=== PATIENT | male | born 1965 | race Caucasian/White ===

== ENCOUNTER 2020-09-20 21:18 | Emergency (ER) | payer MEDICAID, SELFPAY ==
--- NOTE | 2020-09-20 21:28 | ED_ITS ---
HPI - Psych General Chief Complaint: Psychiatric Symptoms Stated Complaint: FOUND SLEEPING IN [place]AC[place] Time Seen by Provider: 09/20/20 21:32 Source: EMS Mode of arrival: EMS Limitations: no limitations History of Present Illness HPI Narrative: 55-year-old male presents via EMS, found in a vacant building by the police department and was brought in to the emergency department for evaluation. Patient is angry, disheveled, close slowed with his own urine, swearing at everybody, states that he had a seizure because he did not take his medications. He does have a history of barbiturate alcohol abuse, does not report using alcohol today. He does smell like alcohol, urine and tobacco. MD complaint: feels depressed and alcohol abuse Onset (ago): unknown Duration: constant History of same: No Context: recent alcohol abuse Associated psychiatric symptoms: depression Associated symptoms: denies other symptoms Treatments prior to arrival: none Related Data Allergies Allergy/AdvReac Type Severity Reaction Status Date / Time aspirin [ASPIRIN] Allergy Unknown STOMACH Unverified 06/15/20 16:55 UPSET ibuprofen [IBUPROFEN] Allergy Unknown STOMACH Unverified 06/15/20 16:55 UPSET Review of Systems Review of Systems: Constitutional: No Fever, No Chills ENT/Mouth: No sore throat, No Rhinorrhea Eyes: No Eye Pain, No Swelling, No Redness Cardiovascular: No Chest Pain, No SOB Respiratory: No Cough, No Sputum Gastrointestinal: No Nausea, No Vomiting, No Diarrhea, No abdominal Pain Genitourinary: No Dysuria, No Hematuria Musculoskeletal: No joint pain, No Myalgias, No Joint Swelling Skin: No Skin Lesions, No rash Neuro: No Weakness, No Numbness, No Loss of Consciousness, No Dizziness, No Headache Psych: No Anxiety, No Depression, No SI/HI/AH/VH Heme/Lymph: No Bruising, No Bleeding,No Lymphadenopathy Endocrine: No Polyuria, No Polydipsia Yes all other systems are reviewed and are negative [facility] Past Medical History Attestation statement: The following information was validated with the patient. Social History Social History Advance Directives: No Advance Directives Information Provided: Yes Physical Exam Vital Signs: Vital Signs: Last Vital Signs Temp 97.1 F 09/20/20 21:49 Pulse 72 09/20/20 21:49 Resp 18 09/20/20 21:49 BP 137/57 L 09/20/20 21:49 Pulse Ox 98 09/20/20 21:49 Body Mass Index 23.7 Appearance: Alert. Oriented X3. Disheveled, urine soiled clothing Eyes: Pupils equal, round and reactive to light. ENT: Pharynx normal. Neck: Normal inspection. Neck supple. CVS: Normal heart rate and rhythm. Pulses normal. Respiratory: No respiratory distress. Breath sounds normal. Abdomen: Soft and nontender. Skin: Skin warm and dry. Normal skin color. Normal skin turgor. Extremities: No lower extremity edema. Neuro: No motor deficit. No sensory deficit. Course Course Course Narrative: 55-year-old male presents via EMS after being found sleeping in a vacant building. Patient is homeless, has a seizure disorder and is not taking his medications properly. Patient's clothes were taken to be cleaned as they were wet and urine soaked. He was moved to the Psychiatric pod where he admitted that he is suicidal. He does not have a plan, N consult is pending. MDM - Psych Differential Diagnosis Differential diagnosis: Likely suicidal ideation, depression, alcohol intoxication and mood disorder Restraints Face to Face Assessment: Face to Face Assessment: Current Situation: After assessment of the patient, a review of the pertinent medical record and a discussion with nursing staff, I feel the patient requires a restrain inte rvention. Reaction To: [] Medical Condition: [] Behavioral State: [] Continued Need: [] Discharge Plan Discharge Clinical Impression: Depression Qualifiers: Depression Type: major depressive disorder Major depression recurrence: recurrent Active/Remission status: currently active Major depression episode severity: moderate Qualified Code(s): F33.1 - Major depressive disorder, recurrent, moderate
[2020-09-20 21:49] VITALS: BP 137/57; PULSE 72; RESP 18; TEMP 36.2; O2SAT 98; BMI 23.7
[2020-09-20] MEDS: levETIRAcetam 1,000 MG TABLET 1000 MG PO (22:32)
--- NOTE | 2020-09-20 22:43 | PC.NURSE ---
Patient took HS PO medication, spat out partially swallowed medication, provider notified/advised to use pudding next time, patient refused POC, will try later, patient trying to isolate herself in the room.
[2020-09-21 01:08] VITALS: BP 115/71; PULSE 100; RESP 17; TEMP 37.4; O2SAT 92
[2020-09-21 03:51] LABS: Basophils Percent Auto 0.9 % (0-2); Eosinophils Absolute Auto 0.1 X10*3/uL (0.0-0.4); Eosinophils Percent Auto 2.7 % (0-4); Hemoglobin 10.5 g/dl (14.0-18.0); Imm Gran Abs Auto 0.02 X10*3/uL (0.00-0.03); Imm Gran Pct Auto 0.6 % (0.0-0.4); Lymphocytes Absolute Auto 1.8 X10*3/uL (1.2-4.9); Lymphocytes Percent Auto 51.6 % (20-40); MANUAL DIFF FLAG NO; Mean Corpuscular HGB Conc 32.8 g/dl (31.0-36.0); Mean Corpuscular Hemoglobin 33.1 pg (27.0-33.0); Mean Corpuscular Volume 100.9 fL (80-98); Mean Platelet Volume 9.8 fL (9.4-12.4); Monocytes Absolute Auto 0.3 X10*3/uL (0.1-1.2); Neutrophils Absolute Auto 1.2 X10*3/uL (2.0-8.3); Neutrophils Percent Auto 34.2 % (45-73); Platelet Count 142 X10*3/uL (160-400); Red Blood Count 3.17 X10*6/uL (4.60-5.80); Red Cell Distribution Width 17.8 % (11.0-16.0); White Blood Count 3.4 X10*3/uL (4.8-10.8)
[2020-09-21 04:14] LABS: Ethanol 21 mg/dL
[2020-09-21 04:17] LABS: Anion Gap 17 (12-20); Blood Urea Nitrogen 8 mg/dL (9-16); Calcium 8.2 mg/dL (8.4-10.2); Carbon Dioxide 20 mmol/L (22-29); Chloride 105 mmol/L (96-108); Creatinine Clr Calc Pharmacy 129.3; Estimated Glomerular Filt Rate > 60; Glucose Random 83 mg/dL (60-115); Potassium 3.7 mmol/l (3.3-5.1); Sodium 138 mmol/L (135-145)
[2020-09-21 04:20] LABS: Alanine Aminotransferase 68 U/L (0-40); Albumin Level 3.4 g/dL (3.5-5.0); Aspartate Amino Transferase 142 U/L (5-37); Bilirubin Direct 0.2 mg/dL (0.0-0.5); Bilirubin Total 0.3 mg/dL (0.0-1.0); Total Protein 5.7 g/dL (6.5-8.0)
[2020-09-21 04:29] LABS: Alkaline Phosphatase 107 U/L (39-117)
[2020-09-21 04:30] LABS: Amphetamine Screen Urine Not Detected (Not Detect); Barbiturates, Urine Not Detected (Not Detect); Benzodiazepines Screen Urine Not Detected (Not Detect); Cannabinoid Screen Urine POSITIVE (Not Detect); Cocaine Screen Urine Not Detected (Not Detect); Opiate Screen Urine Not Detected (Not Detect); Phencyclidine Screen Urine Not Detected (Not Detect)
--- NOTE | 2020-09-21 07:09 | PC.NURSE ---
Report received. PT currently sleeping, respirations even and unlabored, in no apparent distress. Pt waiting to be seen by Beau
--- NOTE | 2020-09-21 08:28 | PC.NURSE ---
[facility]N at bedside for eval.
[2020-09-21 09:13] VITALS: BP 145/95; PULSE 75; TEMP 36.7; O2SAT 95
== END 2020-09-21 10:50 | disposition home or self-care (01) ==
PROVIDERS: Nurse Practitioner Family; Emergency Provider Internal Medicine; PCP Nurse Practitioner Family
DX: F33.1 Major depressive disorder, recurrent, moderate (principal); F10.10 Alcohol abuse, uncomplicated; Y90.1 Blood alcohol level of 20-39 mg/100 ml; Z59.0 Homelessness
CPT/HCPCS: 36415; 80048; 80076; 80307; 80320; 85025; 99284

== ENCOUNTER 2020-11-01 14:21 | Emergency (ER) | payer MEDICAID, SELFPAY ==
[2020-11-01 14:39] VITALS: BP 161/105; BP 161/99; PULSE 72; PULSE 78; RESP 14; TEMP 37.1; O2SAT 100; O2SAT 99; BMI 27.8
--- NOTE | 2020-11-01 14:43 | CT_ITS ---
EXAMINATION: CT HEAD WITHOUT CONTRAST CLINICAL INFORMATION: Fall after drinking alcohol COMPARISON: January 26, 2020 and November 08, 2019 TECHNIQUE: Contiguous axial imaging was performed from the skull base to vertex without intravenous administration of contrast. This CT examination was performed using dose optimization techniques as appropriate, variously including the following: *Automated exposure control *Adjustment of mA and/or kV according to patient size (this includes techniques or standardized protocols for targeted exams where dose is matched to indication/reason for exam; i.e. extremities or head) *Use of iterative reconstruction technique DLP: 822 mGy-cm FINDINGS: There is no evidence of acute intracranial hemorrhage or territorial infarction. No abnormal mass effect or midline shift is seen. Todd to white matter differentiation is well preserved. No extra-axial fluid collections are identified. The ventricle sulci and cisterns are prominent for age consistent with some degree of atrophy. There is no abnormal attenuation within the brain parenchyma. The osseous structures and soft tissues are normal. The mastoid air cells and visualized portions of the paranasal sinuses are well aerated. CT/CT head/brain wo con IMPRESSION: No acute intracranial pathology. Ventricles, sulci, and cisterns are prominent for age consistent with generalized atrophy.
--- NOTE | 2020-11-01 14:47 | ED.FALL ---
HPI - Fall General Chief Complaint: ETOH/Substance Use Stated Complaint: ETOH INTOXICATION Time Seen by Provider: 11/01/20 14:57 Source: patient Mode of arrival: EMS Limitations: no limitations History of Present Illness HPI Narrative: Patient presents to ED for drinking alcohol and falling. Patient admits to falling twice after drinking alcohol. Patient does not want detox. Patient was brought in by EMS. complaint: fall Related Data Allergies Allergy/AdvReac Type Severity Reaction Status Date / Time aspirin [ASPIRIN] Allergy Unknown STOMACH Unverified 06/15/20 16:55 UPSET ibuprofen [IBUPROFEN] Allergy Unknown STOMACH Unverified 06/15/20 16:55 UPSET Review of Systems Review of Systems: Yes all other systems are reviewed and are negative Constitutional: Constitutional: Reports as per HPI and Reports no additional constitutional complaints Eyes: Eyes: Reports as per HPI and Reports no additional eye complaints ENT: Reports system reviewed and no additional complaints, except as documented and Reports as per HPI Cardiovascular: Cardiovascular: Reports as per HPI and Reports no additional cardiovascular complaints Respiratory: Respiratory: Reports as per HPI and Reports no additional respiratory complaints Gastrointestinal: Gastrointestinal: Reports as per HPI and Reports no additional gastrointestinal complaints Genitourinary: Genitourinary: Reports no additional male genitourinary complaints and Reports as per HPI Musculoskeletal: Musculoskeletal: Reports no additional musculoskeletal complaints and Reports as per HPI Neurologic: Reports system reviewed and no additional complaints, except as documented and Reports as per HPI Psychiatric: Psychiatric: Reports no additional psychiatric complaints and Reports as per HPI [facility] Social History Social History Alcohol intake: current Alcohol intake frequency: 3 or more drinks per day Alcohol type: beer and hard liquor Smoking Status: Current every day smoker Use of substances other than those prescribed or required for medical reasons: Yes Substance Use Type: Marijuana Substance Use Frequency: Occasionally Last Used Substance: Just Prior to Admission Any prior treatment program specific to substance use: No Advance Directives: No Advance Directives Information Provided: Yes Physical Exam Vital Signs: Vital Signs: Last Vital Signs Temp 97.8 F 11/01/20 18:12 Pulse 68 11/01/20 18:12 Resp 16 11/01/20 18:12 BP 123/83 11/01/20 18:12 Pulse Ox 97 11/01/20 18:12 Body Mass Index 27.8 Const: Other: Alcohol on breath General: cooperative, healthy appearing, comfortable, no acute distress, well developed, alert, awake and Physically active Orientation/consciousness: patient oriented x3 HENMT: Head: Yes normal to inspection, Yes No palpable skull fracture present, Yes normocephalic, Yes atraumatic and Yes abrasion (Right frontal brain) Eyes: General: appearance normal, both eyes and all related structures Neck: Neck: Yes normal visual inspection, Yes full ROM, Yes no lymphadenopathy, Yes no meningeal signs, Yes trachea midline, Yes supple and No tender Chest: Chest palpation & inspection: normal inspection of the chest and normal palpation of entire chest wall Resp: Effort & Inspection: normal respiratory effort and able to speak in complete sentences Auscultation: clear to auscultation bilaterally Cardio: Jugular venous distension: no JVD Heart sounds: S1 normal heart sound present and S2 normal heart sound present GI: Inspection: Yes normal to inspection and No abdominal wall ecchymosis Palpation (GI): Soft to palpation, not firm, nontender, no guarding and not rigid : General: No CVA tenderness and Yes no CVA tenderness Back/Spine/Pelvis: Back: no CVA tenderness, No CVA tenderness and No back tenderness Skin: General skin exam: no rashes or lesions noted and elasticity normal Neuro: Other: alcohol on breath General: patient oriented x3, no meningeal signs and CN's II-XI intact bilaterally Cranial nerves: Yes CN's II-XII intact bilaterally Extrem: General: Yes normal to inspection and Yes full ROM Psych: Appearance: grossly normal, well kempt and not disheveled Course Course Course Narrative: Will allow the patient to sleep off alcohol and sober up in the ER. Patient will be sent for head CT and C-spine due to falling Reevaluation(s) Reevaluation #1: Patient images negative for fracture or brain bleed. Patient is alert oriented x3 with normal gait. As per security patient has 3 outstanding warrants and should be discharged into police custody on the rest. Patient will wait until police picked him up Time: 19:26 MDM - Fall MDM Narrative Medical decision making narrative: Alcohol abuse Discharge Plan Discharge Clinical Impression: Alcohol abuse Patient Disposition: Home, Self-Care Instructions: Abuse of Alcohol (ED) Additional Instructions: Return to the ED immediately for any headache, dizziness, vomiting blood, chest pain, shortness of breath, rectal bleeding, abdominal pain, or any other concerning symptoms. Please follow-up with PCP Print Language: Romansh
--- NOTE | 2020-11-01 15:12 | PC.NURSE ---
pt intoxicated speech slurred. He states he has not eaten in 3 days.
--- NOTE | 2020-11-01 15:43 | CT_ITS ---
EXAMINATION: CT CERVICAL SPINE WITHOUT CONTRAST CLINICAL INFORMATION: Fall. COMPARISON: CT cervical spine from 11/08/2019. TECHNIQUE: Multidetector helical imaging of the cervical spine was obtained without intravenous contrast. Multiple axial reformats and coronal/sagittal reconstructions were created the technologist workstation for review. This CT examination was performed using dose optimization techniques as appropriate, variously including the following: *Automated exposure control. *Adjustment of mA and/or kV according to patient size (this includes techniques or standardized protocols for targeted exams where dose is matched to indication/reason for exam; i.e. extremities or head). *Use of iterative reconstruction technique. DLP: 397 mGy-cm FINDINGS: The atlantooccipital and atlantoaxial articulations remain well aligned. Mild reversal the normal cervical lordosis centered on C4. Minimal degenerative anterolisthesis of C2 on C3. Congenital nonunion of the posterior arch of C1. No evidence of acute fracture or subluxation. Advanced degenerative disc disease from C3-C7 with disc-osteophyte complex formation. Prominent facet and uncovertebral joint arthropathy leads to osseous encroachment on the neural foramina from C2-T1. Prominent anterior osteophytosis from C3-C7. The vertebral body heights are maintained. There is no prevertebral soft tissue swelling. The thyroid gland and remaining cervical soft tissues are normal in appearance. Mild paraseptal emphysema. SPINAL LEVELS: C2-C3: Mild disc-osteophyte complex. There is moderate right and mild left uncovertebral joint arthropathy. There is moderate left and mild right facet joint arthropathy. There is moderate right and mild left neural foraminal stenosis. There is no demonstrated spinal canal stenosis. C3-C4: Moderate disc-osteophyte complex. There is severe right and moderate left uncovertebral joint arthropathy. There is moderate bilateral facet joint arthropathy. There is severe right and mild left neural foraminal stenosis. There appears to be mild to moderate spinal canal stenosis. C4-C5: Moderate disc-osteophyte complex. There is severe right and moderate left uncovertebral joint arthropathy. There is mild bilateral facet joint arthropathy. There is severe right and moderate left neural foraminal stenosis. There appears to be moderate spinal canal stenosis. C5-C6: Moderate disc-osteophyte complex. There is severe right and moderate left uncovertebral joint arthropathy. There is moderate bilateral facet joint arthropathy. There is severe right and moderate left neural foraminal stenosis. There appears to be moderate spinal canal stenosis. C6-C7: Moderate disc-osteophyte complex. There is severe left and mild right uncovertebral joint arthropathy. There is mild bilateral facet joint arthropathy. There is severe left and moderate right neural foraminal stenosis. There is mild bilateral spinal canal stenosis. C7-T1: Mild disc-osteophyte complex. There is no uncovertebral joint arthropathy. There is severe left and mild right facet joint arthropathy. There is mild left and no right neural foraminal stenosis. There is no spinal canal stenosis. CT/CT cervical spine wo con IMPRESSION: 1. No evidence of acute fracture or traumatic subluxation of the cervical spine. 2. Moderate to advanced multilevel degenerative spondyloarthropathy of the cervical spine as described in detail above. Most notably on this limited exam without intrathecal contrast, there appears to be moderate spinal canal stenosis from C3-C7. Moderate to severe neural foraminal stenoses from C2-C7.
[2020-11-01 18:12] VITALS: BP 123/83; PULSE 68; RESP 16; TEMP 36.6; O2SAT 97
--- NOTE | 2020-11-01 18:16 | PC.NURSE ---
Pt has been sleeping, he wakes to use the urinal and returns to sleep. Pt tolerating a snack
== END 2020-11-01 19:53 | disposition home or self-care (01) ==
PROVIDERS: Emergency Provider Emergency Medicine Emergency Medical Services
DX: F10.10 Alcohol abuse, uncomplicated (principal); Y90.9 Presence of alcohol in blood, level not specified; S00.81XA Abrasion of other part of head, initial encounter; W01.0XXA Fall on same level from slipping, tripping and stumbling without subsequent striking against object, initial encounter; F17.200 Nicotine dependence, unspecified, uncomplicated; Y93.9 Activity, unspecified; Y92.9 Unspecified place or not applicable; Y99.9 Unspecified external cause status
CPT/HCPCS: 70450; 72125; 99284; 99285

== ENCOUNTER 2021-01-05 18:25 | Emergency (ER) | payer MEDICAID, SELFPAY ==
[2021-01-05 18:29] VITALS: BP 100/63; BP 97/71; PULSE 81; RESP 18; TEMP 36.8; O2SAT 97; BMI 24.4
[2021-01-05 18:38] LABS: Glucose, Whole Blood 89 mg/dL (60-115)
--- NOTE | 2021-01-05 18:52 | MHC.RECOVSUP ---
? Reason for consult: Alcohol o Current location: ED06 o Identified substance use concern: Alcohol - Support ? Intervention o Community resources provided o Harm reduction discussion ? Plan: ? Additional information: Patient Refused any service.
[2021-01-05 19:06] VITALS: BP 106/63; PULSE 81; RESP 17; O2SAT 96
--- NOTE | 2021-01-05 19:07 | PC.NURSE ---
Pt aaox4, asleep on stretcher in between care. Pt reports he is at because I had a seizure. I have seizures all of the time and I take Keppra. Pt admits to drinking ETOH tonight but does not know how much, denies other drug use. Pt endorses low back pain as charted, +motor and sensory to BLE. Pt RR even and unlabored, pt returns to sleep while this RN at bedside charting. Pt VSS. Pt offers no additional concerns at this time. Pt NSR on telemetry monitor. Pt stretcher in lowest locked position, rails raised, call farrar within reach.
--- NOTE | 2021-01-05 19:21 | ECG_ITS ---
Test Reason : ETOH Blood Pressure : / mmHG Vent. Rate : 075 BPM Atrial Rate : 075 BPM P-R Int : 146 ms QRS Dur : 094 ms QT Int : 412 ms P-R-T Axes : 059 035 047 degrees QTc Int : 460 ms Normal sinus rhythm Normal ECG When compared with ECG of 26-JAN-2020 05:18, No significant change was found Referred By: Yessenia Chen Electronically Signed By:RADHA GONZALEZ
--- NOTE | 2021-01-05 19:26 | ED.ALCOHOL ---
HPI - Alcohol General Chief Complaint: ETOH/Substance Use Stated Complaint: etoh Source: EMS Mode of arrival: EMS Limitations: altered mental status History of Present Illness HPI narrative: 55-year-old male with history of EtOH abuse and intoxication, homeless, presents via EMS for alcohol intoxication. Patient is not answering questions at this time. MD complaint: alcohol intoxication Last drink: Hours (ago) (Within the hour of arrival) Chronic alcohol use: Yes Previous visits for alcohol intoxication: Yes Recent trauma: No Related Data Allergies Allergy/AdvReac Type Severity Reaction Status Date / Time aspirin [ASPIRIN] Allergy Unknown STOMACH Unverified 06/15/20 16:55 UPSET ibuprofen [IBUPROFEN] Allergy Unknown STOMACH Unverified 06/15/20 16:55 UPSET Review of Systems Review of Systems: Review of systems was completed approximately an hour after patient arrived to the emergency department via EMS. Constitutional: No Fever, No Chills ENT/Mouth: No sore throat, No Rhinorrhea Eyes: No Eye Pain, No Swelling, No Redness Cardiovascular: No Chest Pain, No SOB Respiratory: No Cough, No Sputum Gastrointestinal: No Nausea, No Vomiting, No Diarrhea, No abdominal Pain Genitourinary: No Dysuria, No Hematuria Musculoskeletal: No joint pain, No Myalgias, No Joint Swelling Skin: No Skin Lesions, No rash Neuro: No Weakness, No Numbness, No Loss of Consciousness, No Dizziness, No Headache Psych: Positive ETOH intoxication, No Anxiety, No Depression, No SI/HI/AH/VH Heme/Lymph: No Bruising, No Bleeding,No Lymphadenopathy Endocrine: No Polyuria, No Polydipsia Yes all other systems are reviewed and are negative PMFSH Past Medical History Attestation statement: The following information was validated with the patient. Source: old records reviewed Social History Social History Alcohol intake: current Alcohol intake frequency: 3 or more drinks per day Alcohol type: beer and hard liquor Smoking Status: Current every day smoker Substance Use Type: Marijuana Advance Directives: No Advance Directives Information Provided: No Physical Exam Vital Signs: Vital Signs: Last Vital Signs Temp 98.6 F 01/05/21 22:30 Pulse 76 01/06/21 02:06 Resp 16 01/06/21 02:06 BP 102/58 L 01/05/21 22:30 Pulse Ox 95 01/06/21 02:06 Body Mass Index 24.4 Appearance: Alert. Oriented X3. No acute distress. Eyes: Pupils equal, round and reactive to light. ENT: Pharynx normal. Neck: Normal inspection. Neck supple. CVS: Normal heart rate and rhythm. Pulses normal. Respiratory: No respiratory distress. Breath sounds normal. Abdomen: Soft and nontender. Skin: Skin warm and dry. Normal skin color. Normal skin turgor. Extremities: No lower extremity edema. Neuro: No motor deficit. No sensory deficit. Course Course Course Narrative: 55-year-old male presents via EMS for acute alcohol intoxication. At the time of his presentation patient was unable to answer questions. Approximately 1 hour after patient arrival, patient is answering questions, states that he has been drinking, is homeless, and has not taken his seizure medications today. His clothing is saturated with urine, left pupil is larger approximately 4 mm than the right approximately 2 mm per baseline. He does not have any notable injuries, or bruising. Patient does not report any falls or trauma. He denies suicidal ideation, homicidal ideation, and auditory and visual hallucinations. Patient is chronically anemic at 10.2/32.0, chemistry and urine within normal limits, LEE positive for marijuana, ETOH 174. COVID test is negative. EKG is normal sinus. We will wash his clothing, and patient will metabolize to freedom. MDM - Alcohol Differential Diagnosis Differential diagnosis: Likely alcohol dependence and alcohol intoxication Medical Records Attestation: I reviewed the patient's medical records. Lab Data Attestation: I reviewed the patient's lab results. Result diagrams: 01/05/21 19:40 01/05/21 19:40 Labs: Lab Results 01/05/21 01/05/21 01/05/21 Range/Units 18:35 19:36 19:39 WBC (4.8-10.8) X10*3/uL RBC (4.60-5.80) X10*6/uL Hgb (14.0-18.0) g/dl Hct (42-52) % MCV (80-98) fL MCH (27.0-33.0) pg MCHC (31.0-36.0) g/dl RDW (11.0-16.0) % Plt Count (160-400) X10*3/uL MPV (9.4-12.4) fL Immature Gran % (Auto) (0.0-0.4) % Neut % (Auto) (45-73) % Lymph % (Auto) (20-40) % [place] % (Auto) (2-11) % Eos % (Auto) (0-4) % Baso % (Auto) (0-2) % Lymph # (Auto) (1.2-4.9) X10*3/uL [place] # (Auto) (0.1-1.2) X10*3/uL Eos # (Auto) (0.0-0.4) X10*3/uL Baso # (Auto) (0.0-0.2) X10*3/uL Abs Immat Gran (auto) (0.00-0.03) X10*3/uL Absolute Neuts (auto) (2.0-8.3) X10*3/uL Absolute Nucleated RBC (0.0-0.012) X10*3/uL Nucleated RBC % (auto) (0.0-0.2) /100WBC Sodium (135-145) mmol/L Potassium (3.3-5.1) mmol/L Chloride (96-108) mmol/L Carbon Dioxide (22-29) mmol/L Anion Gap (12-20) BUN (9-16) mg/dL Creatinine (0.5-1.4) mg/dL Estim Creat Clear Calc Estimated GFR POC Glucose 89 (60-115) mg/dL Random Glucose (60-115) mg/dL Calcium (8.4-10.2) mg/dL Troponin I High Sens 4.1 (<3.5-35.0) ng/L Urine Color Urine Appearance Urine pH (5.0-8.0) Ur Specific [place] (1.005-1.025) Urine Protein (NEG-TRACE) MG/DL Urine Glucose (UA) (NEG) MG/DL Urine Ketones (NEG) MG/DL Urine Blood (NEG) Urine Nitrite (NEG) Ur Leukocyte Esterase (NEG) Urine Opiates Screen (Not Detect) Ur Barbiturates Screen (Not Detect) Ur Phencyclidine Scrn (Not Detect) Ur Amphetamines Screen (Not Detect) U Benzodiazepines Scrn (Not Detect) Urine Cocaine Screen (Not Detect) U Marijuana (THC) Screen (Not Detect) Ethyl Alcohol mg/dL Coronavirus (PCR) NEGATIVE (Negative) Influenza Type A (PCR) NEGATIVE (Negative) Influenza Type B (PCR) NEGATIVE (Negative) RSV RNA Qual (PCR) NEGATIVE (Negative) 01/05/21 01/05/21 01/05/21 Range/Units 19:40 19:40 19:40 WBC 5.8 (4.8-10.8) X10*3/uL RBC 3.44 L (4.60-5.80) X10*6/uL Hgb 10.2 L (14.0-18.0) g/dl Hct 32.0 L (42-52) % MCV 93.0 (80-98) fL MCH 29.7 (27.0-33.0) pg MCHC 31.9 (31.0-36.0) g/dl RDW 17.2 H (11.0-16.0) % Plt Count 124 L (160-400) X10*3/uL MPV 10.0 (9.4-12.4) fL Immature Gran % (Auto) 0.3 (0.0-0.4) % Neut % (Auto) 47.5 (45-73) % Lymph % (Auto) 40.5 H (20-40) % [place] % (Auto) 10.2 (2-11) % Eos % (Auto) 1.2 (0-4) % Baso % (Auto) 0.3 (0-2) % Lymph # (Auto) 2.3 (1.2-4.9) X10*3/uL [place] # (Auto) 0.6 (0.1-1.2) X10*3/uL Eos # (Auto) 0.1 (0.0-0.4) X10*3/uL Baso # (Auto) 0.0 (0.0-0.2) X10*3/uL Abs Immat Gran (auto) 0.02 (0.00-0.03) X10*3/uL Absolute Neuts (auto) 2.7 (2.0-8.3) X10*3/uL Absolute Nucleated RBC 0.000 (0.0-0.012) X10*3/uL Nucleated RBC % (auto) 0.0 (0.0-0.2) /100WBC Sodium 143 (135-145) mmol/L Potassium 3.5 (3.3-5.1) mmol/L Chloride 105 (96-108) mmol/L Carbon Dioxide 24 (22-29) mmol/L Anion Gap 18 (12-20) BUN 11 (9-16) mg/dL Creatinine 0.79 (0.5-1.4) mg/dL Estim Creat Clear Calc 114.5 Estimated GFR > 60 POC Glucose (60-115) mg/dL Random Glucose 85 (60-115) mg/dL Calcium 8.9 D (8.4-10.2) mg/dL Troponin I High Sens (<3.5-35.0) ng/L Urine Color Urine Appearance Urine pH (5.0-8.0) Ur Specific [place] (1.005-1.025) Urine Protein (NEG-TRACE) MG/DL Urine Glucose (UA) (NEG) MG/DL Urine Ketones (NEG) MG/DL Urine Blood (NEG) Urine Nitrite (NEG) Ur Leukocyte Esterase (NEG) Urine Opiates Screen (Not Detect) Ur Barbiturates Screen (Not Detect) Ur Phencyclidine Scrn (Not Detect) Ur Amphetamines Screen (Not Detect) U Benzodiazepines Scrn (Not Detect) Urine Cocaine Screen (Not Detect) U Marijuana (THC) Screen (Not Detect) Ethyl Alcohol 174 mg/dL Coronavirus (PCR) (Negative) Influenza Type A (PCR) (Negative) Influenza Type B (PCR) (Negative) RSV RNA Qual (PCR) (Negative) 01/05/21 01/05/21 Range/Units 20:08 20:08 WBC (4.8-10.8) X10*3/uL RBC (4.60-5.80) X10*6/uL Hgb (14.0-18.0) g/dl Hct (42-52) % MCV (80-98) fL MCH (27.0-33.0) pg MCHC (31.0-36.0) g/dl RDW (11.0-16.0) % Plt Count (160-400) X10*3/uL MPV (9.4-12.4) fL Immature Gran % (Auto) (0.0-0.4) % Neut % (Auto) (45-73) % Lymph % (Auto) (20-40) % [place] % (Auto) (2-11) % Eos % (Auto) (0-4) % Baso % (Auto) (0-2) % Lymph # (Auto) (1.2-4.9) X10*3/uL [place] # (Auto) (0.1-1.2) X10*3/uL Eos # (Auto) (0.0-0.4) X10*3/uL Baso # (Auto) (0.0-0.2) X10*3/uL Abs Immat Gran (auto) (0.00-0.03) X10*3/uL Absolute Neuts (auto) (2.0-8.3) X10*3/uL Absolute Nucleated RBC (0.0-0.012) X10*3/uL Nucleated RBC % (auto) (0.0-0.2) /100WBC Sodium (135-145) mmol/L Potassium (3.3-5.1) mmol/L Chloride (96-108) mmol/L Carbon Dioxide (22-29) mmol/L Anion Gap (12-20) BUN (9-16) mg/dL Creatinine (0.5-1.4) mg/dL Estim Creat Clear Calc Estimated GFR POC Glucose (60-115) mg/dL Random Glucose (60-115) mg/dL Calcium (8.4-10.2) mg/dL Troponin I High Sens (<3.5-35.0) ng/L Urine Color YELLOW Urine Appearance CLEAR Urine pH 6.5 (5.0-8.0) Ur Specific [place] <= 1.005 (1.005-1.025) Urine Protein NEG (NEG-TRACE) MG/DL Urine Glucose (UA) NEG (NEG) MG/DL Urine Ketones NEG (NEG) MG/DL Urine Blood NEG (NEG) Urine Nitrite NEG (NEG) Ur Leukocyte Esterase NEG (NEG) Urine Opiates Screen Not Detected (Not Detect) Ur Barbiturates Screen Not Detected (Not Detect) Ur Phencyclidine Scrn Not Detected (Not Detect) Ur Amphetamines Screen Not Detected (Not Detect) U Benzodiazepines Scrn Not Detected (Not Detect) Urine Cocaine Screen Not Detected (Not Detect) U Marijuana (THC) Screen POSITIVE H (Not Detect) Ethyl Alcohol mg/dL Coronavirus (PCR) (Negative) Influenza Type A (PCR) (Negative) Influenza Type B (PCR) (Negative) RSV RNA Qual (PCR) (Negative) ECG Data Attestation: I personally reviewed and interpreted this ECG as follows: ECG interpretation date: 01/05/21 ECG interpretation time: 19:28 Interpretation: Vent. rate 75 BPM GA interval 146 ms QRS duration 94 ms QT/QTc 412/460 ms P-R-T axes 59 35 47 Normal sinus rhythm Normal ECG When compared with ECG of 26-JAN-2020 05:18, No significant change was found Discharge Plan Discharge Clinical Impression: Alcoholic intoxication Patient Disposition: Home, Self-Care Instructions: Abuse of Alcohol (ED) Additional Instructions: Please consider detox. During your emergency department stay we gave you your Keppra 1000 mg. Please take your medication as directed. Thank you for choosing this emergency department for evaluation. Please follow-up with primary care physician as needed. Return to the emergency department for any new, concerning, or worsening symptoms.
[2021-01-05 19:45] LABS: MANUAL DIFF FLAG NO
[2021-01-05 19:48] LABS: Basophils Percent Auto 0.3 % (0-2); Eosinophils Absolute Auto 0.1 X10*3/uL (0.0-0.4); Eosinophils Percent Auto 1.2 % (0-4); Hemoglobin 10.2 g/dl (14.0-18.0); Imm Gran Abs Auto 0.02 X10*3/uL (0.00-0.03); Imm Gran Pct Auto 0.3 % (0.0-0.4); Lymphocytes Absolute Auto 2.3 X10*3/uL (1.2-4.9); Lymphocytes Percent Auto 40.5 % (20-40); Mean Corpuscular HGB Conc 31.9 g/dl (31.0-36.0); Mean Corpuscular Hemoglobin 29.7 pg (27.0-33.0); Monocytes Absolute Auto 0.6 X10*3/uL (0.1-1.2); Monocytes Percent Auto 10.2 % (2-11); Neutrophils Absolute Auto 2.7 X10*3/uL (2.0-8.3); Neutrophils Percent Auto 47.5 % (45-73); Platelet Count 124 X10*3/uL (160-400); Red Blood Count 3.44 X10*6/uL (4.60-5.80); Red Cell Distribution Width 17.2 % (11.0-16.0); White Blood Count 5.8 X10*3/uL (4.8-10.8)
[2021-01-05] MEDS: levETIRAcetam 1,000 MG TABLET 1000 MG PO (19:51)
[2021-01-05 20:06] VITALS: BP 111/70; PULSE 74; RESP 17; O2SAT 96
[2021-01-05 20:06] LABS: Ethanol 174 mg/dL
[2021-01-05 20:08] LABS: Anion Gap 18 (12-20); Blood Urea Nitrogen 11 mg/dL (9-16); Calcium 8.9 mg/dL (8.4-10.2); Carbon Dioxide 24 mmol/L (22-29); Chloride 105 mmol/L (96-108); Creatinine Clr Calc Pharmacy 114.5; Estimated Glomerular Filt Rate > 60; Glucose Random 85 mg/dL (60-115); Potassium 3.5 mmol/L (3.3-5.1); Sodium 143 mmol/L (135-145)
[2021-01-05 20:16] LABS: Troponin-I High Sensitivity 4.1 ng/L (<3.5-35.0)
[2021-01-05 20:21] LABS: Glucose Urine UA NEG (NEG); Leukocyte Esterase Urine NEG (NEG); Nitrite Urine NEG (NEG); PH 6.5 (5.0-8.0); Specific Gravity - Urine <= 1.005 (1.005-1.025); Urine Blood NEG (NEG); Urine Ketones NEG (NEG); Urine Protein NEG (NEG-TRACE)
[2021-01-05 20:23] LABS: Appearance Urine CLEAR; Color Urine YELLOW
[2021-01-05 20:26] LABS: Influenza A PCR NEGATIVE (Negative); Influenza B PCR NEGATIVE (Negative); Resp Syncy Virus RNA Qual PCR NEGATIVE (Negative); SARS COV2 PCR INHOUSE NEGATIVE (Negative)
[2021-01-05 20:40] LABS: Amphetamine Screen Urine Not Detected (Not Detect); Barbiturates, Urine Not Detected (Not Detect); Benzodiazepines Screen Urine Not Detected (Not Detect); Cannabinoid Screen Urine POSITIVE (Not Detect); Cocaine Screen Urine Not Detected (Not Detect); Opiate Screen Urine Not Detected (Not Detect); Phencyclidine Screen Urine Not Detected (Not Detect)
--- NOTE | 2021-01-05 21:13 | PC.NURSE ---
Pt remains asleep on stretcher in NAD, breathing with ease on RA with equal chest rise and fall bilaterally.
[2021-01-05 21:36] VITALS: BP 106/62; PULSE 75; RESP 15; O2SAT 97
[2021-01-05 22:30] VITALS: BP 102/58; PULSE 91; RESP 18; TEMP 37; O2SAT 94
--- NOTE | 2021-01-05 23:05 | PC.NURSE ---
PT'S CLOTHING IN WASH, PER REQUEST OF PROVIDER. PT GIVEN ICE WATER.
[2021-01-06 02:06] VITALS: PULSE 76; RESP 16; O2SAT 95
--- NOTE | 2021-01-06 02:44 | PC.NURSE ---
PT AMBULATORY TO BATHROOM WITH ASSISTANCE OF HIS CANE. PT STEADY ON HIS FEET. PROVIDED PT WITH WIPES TO CLEAN UP IN BATHROOM.
--- NOTE | 2021-01-06 03:33 | PC.NURSE ---
PT HAS MONEY IN HOSPITAL GOWN POCKET, WOULD NOT PLACE IN JACKET POCKET WHILE CLOTHES WASHED.
[2021-01-06 05:11] VITALS: PULSE 84; RESP 21; O2SAT 97
--- NOTE | 2021-01-06 05:11 | PC.NURSE ---
PT DISCHARGED BY PROVIDER, PLAN IS TO LET PT SLEEP UNTIL DAYLIGHT.
--- NOTE | 2021-01-06 06:05 | PC.NURSE ---
pt given soda. sandwich and pudding. pt awake and alert. pt ambulatory to bathroom with steady gait.
== END 2021-01-06 07:00 | disposition home or self-care (01) ==
PROVIDERS: Nurse Practitioner Family; Emergency Provider Internal Medicine
DX: F10.129 Alcohol abuse with intoxication, unspecified (principal); Y90.9 Presence of alcohol in blood, level not specified; Z71.41 Alcohol abuse counseling and surveillance of alcoholic; Z20.822 Contact with and (suspected) exposure to COVID-19; Z79.899 Other long term (current) drug therapy
CPT/HCPCS: 0241U; 36415; 80048; 80307; 80320; 81003; 82947; 84484; 85025; 93005; 99284

== ENCOUNTER 2021-01-11 03:55 | Emergency (ER) | payer MEDICAID, SELFPAY ==
[2021-01-11 06:16] LABS: COVID-19 Test Negative (Negative)
--- NOTE | 2021-01-11 06:33 | ED.PSYCH ---
HPI - Psych General Stated Complaint: OUT OF MEDS,HOMELESS Time Seen by Provider: 01/11/21 04:06 Source: patient and EMS Mode of arrival: EMS Limitations: no limitations History of Present Illness HPI Narrative: reports he has no place to go for 3 weeks, he is sad and wants to walk in front of a car complaint: suicidal ideation and feels depressed Onset (ago): week(s) (3) Duration: constant History of same: Yes Relieving factors: none Exacerbating factors: alcohol Context: recent alcohol abuse and significant life stressor Associated psychiatric symptoms: depression and suicidal ideation Associated symptoms: denies other symptoms Treatments prior to arrival: none If self harm: admits thoughts of self harm and has plan Related Data Allergies Allergy/AdvReac Type Severity Reaction Status Date / Time aspirin [ASPIRIN] Allergy Unknown STOMACH Unverified 06/15/20 16:55 UPSET ibuprofen [IBUPROFEN] Allergy Unknown STOMACH Unverified 06/15/20 16:55 UPSET Review of Systems Review of Systems: Constitutional : No Fever, No Chills ENT/Mouth : No Ear Pain, No Nasal Congestion, No sore throat Eyes: No Eye Pain, No Swelling, No Redness Cardiovascular : No Chest Pain, No SOB Respiratory : No Cough, No Sputum, No Dyspnea Gastrointestinal : No Nausea, No Vomiting, No Diarrhea, No Hematochezia, No Melena Genitourinary : No Dysuria, No Urinary Frequency, No Hematuria Musculoskeletal : No Myalgias Skin : No Skin Lesions, No rash Neuro : No Weakness, No Numbness, No Paresthesias, No Dizziness, No Headache Psych : positive Anxiety, positive Depression, positive SI, no HI Heme/Lymph: No Lymphadenopathy Endocrine : No Polyuria, No Polydipsia All other systems reviewed and are negative [facility] Past Medical History Attestation statement: The following information was validated with the patient. Medical History Alcohol abuse Back pain Seizures Social History Social History Alcohol intake: current Alcohol intake frequency: 3 or more drinks per day Alcohol type: beer and hard liquor Smoking Status: Current every day smoker Substance Use Type: Marijuana Advance Directives: No Physical Exam Vital Signs: Appearance: Alert. Oriented X3. No acute distress. slightly anxious, disheveled Eyes: Pupils equal, round and reactive to light. ENT: Pharynx normal. Neck: Normal inspection. Neck supple. CVS: Normal heart rate and rhythm. Pulses normal. Respiratory: No respiratory distress. Breath sounds normal. Abdomen: Soft and nontender. Skin: Skin warm and dry. Normal skin color. Normal skin turgor. Extremities: No lower extremity edema. No calf ttp Neuro: Oriented X 3. No motor deficit. No sensory deficit. PSych: + anxiety, + depression, + si, no HI Course Course Course Narrative: signed out to Dr. Kendrick pending [facility] MDM - Psych MDM Narrative Medical decision making narrative: 55 yo male with seizures, ETOH abuse, chronic back pain comes in with c/o SI and wants a place to stay, will need labs, [facility] consult Lab Data Result diagrams: 01/11/21 05:15 Labs: Lab Results 01/11/21 01/11/21 01/11/21 Range/Units 05:15 05:15 05:15 Sodium 143 (135-145) mmol/L Potassium 4.4 D (3.3-5.1) mmol/L Chloride 103 (96-108) mmol/L Carbon Dioxide 25 (22-29) mmol/L Anion Gap 19 (12-20) BUN 10 (9-16) mg/dL Creatinine 0.73 (0.5-1.4) mg/dL Estim Creat Clear Calc TNP Estimated GFR > 60 Random Glucose 105 (60-115) mg/dL Magnesium 1.6 (1.6-2.6) mg/dL Total Bilirubin 0.6 (0.0-1.0) mg/dL Direct Bilirubin 0.3 (0.0-0.5) mg/dL AST 35 D (5-37) U/L ALT 15 (0-40) U/L Alkaline Phosphatase 62 D (39-117) U/L Total Protein 6.2 L (6.5-8.0) g/dL Albumin 3.8 (3.5-5.0) g/dL Ethyl Alcohol 127 mg/dL COVID-19 (FRANSICO) Negative (Negative) COVID-19 Clin Com See Note Discharge Plan Discharge Clinical Impression: Alcohol abuse, Homelessness Depression Qualifiers: Depression Type: unspecified Qualified Code(s): F32.9 - Major depressive disorder, single episode, unspecified
[2021-01-11 06:43] LABS: Alanine Aminotransferase 15 U/L (0-40); Albumin Level 3.8 g/dL (3.5-5.0); Alkaline Phosphatase 62 U/L (39-117); Anion Gap 19 (12-20); Aspartate Amino Transferase 35 U/L (5-37); Bilirubin Direct 0.3 mg/dL (0.0-0.5); Bilirubin Total 0.6 mg/dL (0.0-1.0); Blood Urea Nitrogen 10 mg/dL (9-16); Carbon Dioxide 25 mmol/L (22-29); Chloride 103 mmol/L (96-108); Estimated Glomerular Filt Rate > 60; Glucose Random 105 mg/dL (60-115); Magnesium 1.6 mg/dL (1.6-2.6); Potassium 4.4 mmol/L (3.3-5.1); Sodium 143 mmol/L (135-145); Total Protein 6.2 g/dL (6.5-8.0)
[2021-01-11 06:45] LABS: Ethanol 127 mg/dL
[2021-01-11 07:21] LABS: MANUAL DIFF FLAG NO
[2021-01-11 08:15] LABS: Basophils Percent Auto 0.4 % (0-2); Eosinophils Absolute Auto 0.1 X10*3/uL (0.0-0.4); Eosinophils Percent Auto 1.7 % (0-4); Hematocrit 38.9 % (42-52); Hemoglobin 12.5 g/dl (14.0-18.0); Imm Gran Abs Auto 0.01 X10*3/uL (0.00-0.03); Imm Gran Pct Auto 0.2 % (0.0-0.4); Lymphocytes Absolute Auto 2.1 X10*3/uL (1.2-4.9); Lymphocytes Percent Auto 45.9 % (20-40); Mean Corpuscular HGB Conc 32.1 g/dl (31.0-36.0); Mean Corpuscular Hemoglobin 29.8 pg (27.0-33.0); Mean Corpuscular Volume 92.6 fL (80-98); Mean Platelet Volume 10.2 fL (9.4-12.4); Monocytes Absolute Auto 0.5 X10*3/uL (0.1-1.2); Monocytes Percent Auto 10.8 % (2-11); Neutrophils Absolute Auto 1.9 X10*3/uL (2.0-8.3); Platelet Count 165 X10*3/uL (160-400); Red Cell Distribution Width 17.2 % (11.0-16.0); White Blood Count 4.6 X10*3/uL (4.8-10.8)
[2021-01-11 08:22] VITALS: BP 145/86; PULSE 101; RESP 16; O2SAT 96
--- NOTE | 2021-01-11 08:23 | PC.NURSE ---
Pt reports being homeless, depressed d/t being a homeless and losing his family. When asked about SI pt starts to talk about other things when redirected to SI pt does state I just dont want to be around anymore Calm/cooperative. Security to bedside to inventory belongings and meds to be brought to pharmacy by this RN. Pt does report acute on chronic back pain, Motrin to be administered. Ate breakfast. Faxed to [facility] and awaiting eval
[2021-01-11 09:06] LABS: Glucose Urine UA NEG (NEG); Leukocyte Esterase Urine NEG (NEG); Nitrite Urine NEG (NEG); Specific Gravity - Urine >= 1.030 (1.005-1.025); Urine Blood NEG (NEG); Urine Ketones 5 MG/DL (NEG); Urine Protein NEG (NEG-TRACE)
[2021-01-11 09:09] LABS: Appearance Urine CLEAR; Color Urine YELLOW
[2021-01-11 09:37] LABS: Amphetamine Screen Urine Not Detected (Not Detect); Barbiturates, Urine Not Detected (Not Detect); Benzodiazepines Screen Urine Not Detected (Not Detect); Cannabinoid Screen Urine POSITIVE (Not Detect); Cocaine Screen Urine Not Detected (Not Detect); Opiate Screen Urine Not Detected (Not Detect); Phencyclidine Screen Urine Not Detected (Not Detect)
--- NOTE | 2021-01-11 10:17 | PC.NURSE ---
Pt being seen by CARE team at this time
--- NOTE | 2021-01-11 11:03 | PC.NURSE ---
Pt seen by CARE team and also re evaluated by Dr Kendrick and plan to be discharged, [facility] called and made aware of referral no longer needed at this time
[2021-01-11 11:04] VITALS: BP 131/86; PULSE 86; RESP 18; TEMP 36.8; O2SAT 97
--- NOTE | 2021-01-11 11:24 | MHC.CARE ---
Pt arrived to [facility] via EMS after he reported to EMS staff that he was cold and homeless. Pt then voiced he had thoughts of stepping on front of a car . Pt was transported to [facility] for further assessment. Pts BAL was under 150 upon arrival. Pts tox screen was positive for cannabis. Pt was referred to [facility] and was awaiting to be seen. Due to no staff available by [facility], the ED/POD staff requested pt be seen by CARE team for screening to see if pt required further assessment. Pt was located in the [place] resting in a bed and then willing to walk to a private room for interview. Pt was dressed in hospital attire and hair disheveled. He stated he has been homeless/sleeping rough for less than a few months and he feels cold and his back hurts . Pt said he was [facility] and he has been staying throughout the area since. When asked about depression or suicidal thoughts pt replied that he said that just to get out of he cold referring to coming to [facility]. Pt then asked I was hoping you would find me housing . 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 Pt does not have VA connection or benefits. Pt said he drinks often and how he wanted to leave. When t/w suggested detox referral he declined and replied no, I just did that and it didn't help me . T/w suggested that pt reconsider of which he declined. Pts goal was to go stay with his brother in [place]. When t/w provided the phone he changed his mind and said I rather just show up there . Pt was concerned that his belongings were locked up and was reassured that they were safe. Pt indicated that he has shit his pants prior to arrival which happens when I drink . Pt was given hospital pants to wear. Pt ate a full breakfast. Pt denied feeling depressed, denied suicidal thinking and denied that he had intent to end his life prior to arrival. Pt was seen by ED doc and plan to dc.
== END 2021-01-11 11:34 | disposition home or self-care (01) ==
PROVIDERS: Emergency Medicine; Physician Assistant; Emergency Provider Emergency Medicine Emergency Medical Services
DX: F33.1 Major depressive disorder, recurrent, moderate (principal); R45.851 Suicidal ideations; F10.20 Alcohol dependence, uncomplicated; F12.90 Cannabis use, unspecified, uncomplicated; Y90.6 Blood alcohol level of 120-199 mg/100 ml; Z20.822 Contact with and (suspected) exposure to COVID-19; Z59.0 Homelessness; Z79.899 Other long term (current) drug therapy
CPT/HCPCS: 36415; 80051; 80076; 80307; 80320; 81003; 82565; 82947; 83735; 84520; 85025; 87635; 99282; 99283

== ENCOUNTER 2021-01-11 17:48 | Emergency (ER) | payer MEDICAID, SELFPAY ==
--- NOTE | ~2021-01-11 | XR_ITS ---
EXAMINATION: XR LUMBOSACRAL SPINE CLINICAL INFORMATION: Pain in lumbar area COMPARISON: Lumbar spine 02/09/2009 TECHNIQUE: Three views of the lumbosacral spine. FINDINGS: Lumbar vertebrae have normal height and normal alignment. No fracture or bone destruction. There is degenerative spondylosis. Multilevel vertebral endplate spurring and facet joint arthrosis. Mild lumbar disc height narrowing diffusely through the lumbar spine. Compared with the prior study of 02/09/2009 the vertebral endplate spurs have progressed. There has otherwise been no substantial change. XR/XR lumbar spine 2-3V IMPRESSION: 1. No acute abnormality. 2. Degenerative spondylosis of lumbar spine
--- NOTE | ~2021-01-11 | CT_ITS ---
EXAMINATION: CT HEAD WITHOUT CONTRAST CLINICAL INFORMATION: Found unconscious, EtOH COMPARISON: None TECHNIQUE: Contiguous axial imaging was performed from the skull base to vertex without intravenous administration of contrast. This CT examination was performed using dose optimization techniques as appropriate, variously including the following: *Automated exposure control *Adjustment of mA and/or kV according to patient size (this includes techniques or standardized protocols for targeted exams where dose is matched to indication/reason for exam; i.e. extremities or head) *Use of iterative reconstruction technique DLP: 784 mGy-cm FINDINGS: There is no evidence of acute intracranial hemorrhage or territorial infarction. No abnormal mass effect or midline shift is seen. Todd to white matter differentiation is well preserved. No extra-axial fluid collections are identified. The lateral ventricles are symmetrical but moderately enlarged. The todd to white matter differentiation is preserved normal. The osseous structures and soft tissues are normal. The mastoid air cells and visualized portions of the paranasal sinuses are well aerated. CT/CT head/brain wo con IMPRESSION: No acute intracranial process seen. Mild cerebral volume loss.
[2021-01-11 18:00] VITALS: PULSE 72; RESP 16; O2SAT 97; BMI 24.4
[2021-01-11 18:04] VITALS: BP 156/80; PULSE 90; O2SAT 98
[2021-01-11 18:12] VITALS: BP 105/72; PULSE 74; RESP 16; O2SAT 96
[2021-01-11 19:47] VITALS: BP 115/74; PULSE 82; RESP 16
--- NOTE | 2021-01-11 19:55 | PC.NURSE ---
Pt provided with food/drink. VSS. Sitter at bedside.
--- NOTE | 2021-01-11 21:18 | ECG_ITS ---
Test Reason : SIEZURE Blood Pressure : / mmHG Vent. Rate : 087 BPM Atrial Rate : 087 BPM P-R Int : 130 ms QRS Dur : 088 ms QT Int : 390 ms P-R-T Axes : 055 067 071 degrees QTc Int : 469 ms Normal sinus rhythm Normal ECG When compared with ECG of 05-JAN-2021 19:28, T wave inversion now evident in Anterior leads Referred By: Angella Prabhakar Electronically Signed By:Jimmy Jose
--- NOTE | 2021-01-11 21:20 | ED_ITS ---
HPI - General Adult General Chief complaint: ETOH/Substance Use Stated complaint: sick Time Seen by Provider: 01/11/21 21:11 Source: patient Mode of arrival: ambulatory Limitations: no limitations History of Present Illness HPI narrative: Patient comes to emergency room via EMS. Patient was found unconscious on the floor outside of a liquor store in the rain, intoxicated easily arousable. Patient was seen earlier this morning, he was here for alcohol intoxication, made some suicidal statements, was seen by the care team and was discharged. At this time, patient is very intoxicated, awake, states that he does not remember if he had a seizure, states that he is homeless and has not been taking his Keppra. Patient denies headache, neck pain, complaining of mild lumbar pain. Patient unable to state if this pain is acute or chronic Related Data Previous Rx's Medication Instructions Recorded levetiracetam [Keppra] 1,000 mg PO BID #60 tab 01/12/21 Allergies Allergy/AdvReac Type Severity Reaction Status Date / Time aspirin [ASPIRIN] Allergy Unknown STOMACH Unverified 06/15/20 16:55 UPSET ibuprofen [IBUPROFEN] Allergy Unknown STOMACH Unverified 06/15/20 16:55 UPSET Review of Systems Review of Systems: Complaining of possible seizure, complaining of back pain Yes Unobtainable due to mental status (Alcohol intoxicated) PMFSH Past Medical History Medical History Alcohol abuse Back pain Seizures Social History Social History Alcohol intake: current Alcohol intake frequency: 3 or more drinks per day Alcohol type: beer and hard liquor Smoking Status: Current every day smoker Use of substances other than those prescribed or required for medical reasons: Yes Substance Use Type: Marijuana Last Used Substance: Just Prior to Admission Advance Directives: No Advance Directives Information Provided: No Physical Exam Vital Signs: Vital Signs: Last Vital Signs Pulse 81 01/12/21 06:06 Resp 16 01/12/21 06:06 BP 151/93 H 01/12/21 06:06 Pulse Ox 95 01/11/21 21:27 Body Mass Index 24.4 Appearance: Alert. Oriented X2. No acute distress. Eyes: Pupils equal, round and reactive to light. ENT: Pharynx normal. Neck: Normal inspection. Neck supple. No lymph nodes noted. No crepitus, no cervical pain on palpation, no palpable step offs CVS: Normal heart rate and rhythm. Pulses normal. Normal S1 and S2 Respiratory: No respiratory distress. Breath sounds normal. No Wheezing. No rales Abdomen: Soft and nontender. No rigidity. No distention. back: Mild discomfort to palpation over the lumbar spine Skin: Skin warm and dry. Normal skin color. Normal skin turgor. Extremities: No lower extremity edema. No lower extremity edema. No Lacerations. No Rash Neuro: Oriented X 3. No motor deficit. No sensory deficit. Moving all extermities. No slurred speech. Course Course Course Narrative: Patient's lactic acid is elevated at 3.5, white blood cell count within normal limits, no source of infection. It is likely secondary to a seizure. Patient is receiving IV fluids. Patient was given 1 dose of 750 mg of IV Keppra. Patient received 3 L of fluid, lactic acid within normal limits. Patient requesting a prescription for Keppra. States he takes 1000 mg twice a day Patient is ambulatory, sober, steady gait. Patient ready for discharge Medical Decision Making Lab Data Result diagrams: 01/11/21 21:33 01/11/21 21:33 Labs: Lab Results 01/11/21 01/11/21 01/11/21 Range/Units 21:33 21:33 21:33 WBC 5.9 (4.8-10.8) X10*3/uL RBC 3.85 L (4.60-5.80) X10*6/uL Hgb 11.4 L (14.0-18.0) g/dl Hct 35.5 L (42-52) % MCV 92.2 (80-98) fL MCH 29.6 (27.0-33.0) pg MCHC 32.1 (31.0-36.0) g/dl RDW 17.2 H (11.0-16.0) % Plt Count 148 L (160-400) X10*3/uL MPV 9.7 (9.4-12.4) fL Immature Gran % (Auto) 0.3 (0.0-0.4) % Neut % (Auto) 46.3 (45-73) % Lymph % (Auto) 44.3 H (20-40) % [place] % (Auto) 7.8 (2-11) % Eos % (Auto) 1.0 (0-4) % Baso % (Auto) 0.3 (0-2) % Lymph # (Auto) 2.6 (1.2-4.9) X10*3/uL [place] # (Auto) 0.5 (0.1-1.2) X10*3/uL Eos # (Auto) 0.1 (0.0-0.4) X10*3/uL Baso # (Auto) 0.0 (0.0-0.2) X10*3/uL Abs Immat Gran (auto) 0.02 (0.00-0.03) X10*3/uL Absolute Neuts (auto) 2.7 (2.0-8.3) X10*3/uL Absolute Nucleated RBC 0.000 (0.0-0.012) X10*3/uL Nucleated RBC % (auto) 0.0 (0.0-0.2) /100WBC PT 10.0 L (10.8-13.0) SEC INR 0.8 L (0.9-1.1) Sodium 142 (135-145) mmol/L Potassium 3.7 (3.3-5.1) mmol/L Chloride 103 (96-108) mmol/L Carbon Dioxide 25 (22-29) mmol/L Anion Gap 18 (12-20) BUN 11 (9-16) mg/dL Creatinine 0.82 (0.5-1.4) mg/dL Estim Creat Clear Calc 110.4 Estimated GFR > 60 Random Glucose 136 H (60-115) mg/dL Lactic Acid (0.5-2.0) mmol/L Lactic Acid Fup @ 2Hr (0.5-2.0) mmol/L Lactic Acid Fup @ 4Hr (0.5-2.0) mmol/L Calcium 9.1 (8.4-10.2) mg/dL Total Bilirubin 0.5 (0.0-1.0) mg/dL Direct Bilirubin 0.2 (0.0-0.5) mg/dL AST 33 (5-37) U/L ALT 16 (0-40) U/L Alkaline Phosphatase 63 (39-117) U/L Troponin I High Sens (<3.5-35.0) ng/L Total Protein 5.9 L (6.5-8.0) g/dL Albumin 3.6 (3.5-5.0) g/dL Urine Color Urine Appearance Urine pH (5.0-8.0) Ur Specific [place] (1.005-1.025) Urine Protein (NEG-TRACE) MG/DL Urine Glucose (UA) (NEG) MG/DL Urine Ketones (NEG) MG/DL Urine Blood (NEG) Urine Nitrite (NEG) Ur Leukocyte Esterase (NEG) Urine Opiates Screen (Not Detect) Ur Barbiturates Screen (Not Detect) Ur Phencyclidine Scrn (Not Detect) Ur Amphetamines Screen (Not Detect) U Benzodiazepines Scrn (Not Detect) Urine Cocaine Screen (Not Detect) U Marijuana (THC) Screen (Not Detect) Ethyl Alcohol mg/dL 01/11/21 01/11/21 01/11/21 Range/Units 21:33 21:33 21:33 WBC (4.8-10.8) X10*3/uL RBC (4.60-5.80) X10*6/uL Hgb (14.0-18.0) g/dl Hct (42-52) % MCV (80-98) fL MCH (27.0-33.0) pg MCHC (31.0-36.0) g/dl RDW (11.0-16.0) % Plt Count (160-400) X10*3/uL MPV (9.4-12.4) fL Immature Gran % (Auto) (0.0-0.4) % Neut % (Auto) (45-73) % Lymph % (Auto) (20-40) % [place] % (Auto) (2-11) % Eos % (Auto) (0-4) % Baso % (Auto) (0-2) % Lymph # (Auto) (1.2-4.9) X10*3/uL [place] # (Auto) (0.1-1.2) X10*3/uL Eos # (Auto) (0.0-0.4) X10*3/uL Baso # (Auto) (0.0-0.2) X10*3/uL Abs Immat Gran (auto) (0.00-0.03) X10*3/uL Absolute Neuts (auto) (2.0-8.3) X10*3/uL Absolute Nucleated RBC (0.0-0.012) X10*3/uL Nucleated RBC % (auto) (0.0-0.2) /100WBC PT (10.8-13.0) SEC INR (0.9-1.1) Sodium (135-145) mmol/L Potassium (3.3-5.1) mmol/L Chloride (96-108) mmol/L Carbon Dioxide (22-29) mmol/L Anion Gap (12-20) BUN (9-16) mg/dL Creatinine (0.5-1.4) mg/dL Estim Creat Clear Calc Estimated GFR Random Glucose (60-115) mg/dL Lactic Acid 3.5 H* (0.5-2.0) mmol/L Lactic Acid Fup @ 2Hr (0.5-2.0) mmol/L Lactic Acid Fup @ 4Hr (0.5-2.0) mmol/L Calcium (8.4-10.2) mg/dL Total Bilirubin (0.0-1.0) mg/dL Direct Bilirubin (0.0-0.5) mg/dL AST (5-37) U/L ALT (0-40) U/L Alkaline Phosphatase (39-117) U/L Troponin I High Sens 5.6 (<3.5-35.0) ng/L Total Protein (6.5-8.0) g/dL Albumin (3.5-5.0) g/dL Urine Color Urine Appearance Urine pH (5.0-8.0) Ur Specific [place] (1.005-1.025) Urine Protein (NEG-TRACE) MG/DL Urine Glucose (UA) (NEG) MG/DL Urine Ketones (NEG) MG/DL Urine Blood (NEG) Urine Nitrite (NEG) Ur Leukocyte Esterase (NEG) Urine Opiates Screen (Not Detect) Ur Barbiturates Screen (Not Detect) Ur Phencyclidine Scrn (Not Detect) Ur Amphetamines Screen (Not Detect) U Benzodiazepines Scrn (Not Detect) Urine Cocaine Screen (Not Detect) U Marijuana (THC) Screen (Not Detect) Ethyl Alcohol 163 mg/dL 0401/11/21 01/12/21 Range/Units 21:37 21:37 00:27 WBC (4.8-10.8) X10*3/uL RBC (4.60-5.80) X10*6/uL Hgb (14.0-18.0) g/dl Hct (42-52) % MCV (80-98) fL MCH (27.0-33.0) pg MCHC (31.0-36.0) g/dl RDW (11.0-16.0) % Plt Count (160-400) X10*3/uL MPV (9.4-12.4) fL Immature Gran % (Auto) (0.0-0.4) % Neut % (Auto) (45-73) % Lymph % (Auto) (20-40) % [place] % (Auto) (2-11) % Eos % (Auto) (0-4) % Baso % (Auto) (0-2) % Lymph # (Auto) (1.2-4.9) X10*3/uL [place] # (Auto) (0.1-1.2) X10*3/uL Eos # (Auto) (0.0-0.4) X10*3/uL Baso # (Auto) (0.0-0.2) X10*3/uL Abs Immat Gran (auto) (0.00-0.03) X10*3/uL Absolute Neuts (auto) (2.0-8.3) X10*3/uL Absolute Nucleated RBC (0.0-0.012) X10*3/uL Nucleated RBC % (auto) (0.0-0.2) /100WBC PT (10.8-13.0) SEC INR (0.9-1.1) Sodium (135-145) mmol/L Potassium (3.3-5.1) mmol/L Chloride (96-108) mmol/L Carbon Dioxide (22-29) mmol/L Anion Gap (12-20) BUN (9-16) mg/dL Creatinine (0.5-1.4) mg/dL Estim Creat Clear Calc Estimated GFR Random Glucose (60-115) mg/dL Lactic Acid (0.5-2.0) mmol/L Lactic Acid Fup @ 2Hr 3.0 H* (0.5-2.0) mmol/L Lactic Acid Fup @ 4Hr (0.5-2.0) mmol/L Calcium (8.4-10.2) mg/dL Total Bilirubin (0.0-1.0) mg/dL Direct Bilirubin (0.0-0.5) mg/dL AST (5-37) U/L ALT (0-40) U/L Alkaline Phosphatase (39-117) U/L Troponin I High Sens (<3.5-35.0) ng/L Total Protein (6.5-8.0) g/dL Albumin (3.5-5.0) g/dL Urine Color YELLOW Urine Appearance CLEAR Urine pH 6.5 (5.0-8.0) Ur Specific [place] 1.010 (1.005-1.025) Urine Protein NEG (NEG-TRACE) MG/DL Urine Glucose (UA) NEG (NEG) MG/DL Urine Ketones NEG (NEG) MG/DL Urine Blood NEG (NEG) Urine Nitrite NEG (NEG) Ur Leukocyte Esterase NEG (NEG) Urine Opiates Screen Not Detected (Not Detect) Ur Barbiturates Screen Not Detected (Not Detect) Ur Phencyclidine Scrn Not Detected (Not Detect) Ur Amphetamines Screen Not Detected (Not Detect) U Benzodiazepines Scrn Not Detected (Not Detect) Urine Cocaine Screen Not Detected (Not Detect) U Marijuana (THC) Screen POSITIVE H (Not Detect) Ethyl Alcohol mg/dL 01/12/21 01/12/21 Range/Units 03:28 06:08 WBC (4.8-10.8) X10*3/uL RBC (4.60-5.80) X10*6/uL Hgb (14.0-18.0) g/dl Hct (42-52) % MCV (80-98) fL MCH (27.0-33.0) pg MCHC (31.0-36.0) g/dl RDW (11.0-16.0) % Plt Count (160-400) X10*3/uL MPV (9.4-12.4) fL Immature Gran % (Auto) (0.0-0.4) % Neut % (Auto) (45-73) % Lymph % (Auto) (20-40) % [place] % (Auto) (2-11) % Eos % (Auto) (0-4) % Baso % (Auto) (0-2) % Lymph # (Auto) (1.2-4.9) X10*3/uL [place] # (Auto) (0.1-1.2) X10*3/uL Eos # (Auto) (0.0-0.4) X10*3/uL Baso # (Auto) (0.0-0.2) X10*3/uL Abs Immat Gran (auto) (0.00-0.03) X10*3/uL Absolute Neuts (auto) (2.0-8.3) X10*3/uL Absolute Nucleated RBC (0.0-0.012) X10*3/uL Nucleated RBC % (auto) (0.0-0.2) /100WBC PT (10.8-13.0) SEC INR (0.9-1.1) Sodium (135-145) mmol/L Potassium (3.3-5.1) mmol/L Chloride (96-108) mmol/L Carbon Dioxide (22-29) mmol/L Anion Gap (12-20) BUN (9-16) mg/dL Creatinine (0.5-1.4) mg/dL Estim Creat Clear Calc Estimated GFR Random Glucose (60-115) mg/dL Lactic Acid (0.5-2.0) mmol/L Lactic Acid Fup @ 2Hr 1.0 (0.5-2.0) mmol/L Lactic Acid Fup @ 4Hr 2.6 H* (0.5-2.0) mmol/L Calcium (8.4-10.2) mg/dL Total Bilirubin (0.0-1.0) mg/dL Direct Bilirubin (0.0-0.5) mg/dL AST (5-37) U/L ALT (0-40) U/L Alkaline Phosphatase (39-117) U/L Troponin I High Sens (<3.5-35.0) ng/L Total Protein (6.5-8.0) g/dL Albumin (3.5-5.0) g/dL Urine Color Urine Appearance Urine pH (5.0-8.0) Ur Specific [place] (1.005-1.025) Urine Protein (NEG-TRACE) MG/DL Urine Glucose (UA) (NEG) MG/DL Urine Ketones (NEG) MG/DL Urine Blood (NEG) Urine Nitrite (NEG) Ur Leukocyte Esterase (NEG) Urine Opiates Screen (Not Detect) Ur Barbiturates Screen (Not Detect) Ur Phencyclidine Scrn (Not Detect) Ur Amphetamines Screen (Not Detect) U Benzodiazepines Scrn (Not Detect) Urine Cocaine Screen (Not Detect) U Marijuana (THC) Screen (Not Detect) Ethyl Alcohol mg/dL Imaging Data Lumbar spine x-ray: Radiologist's impression: FINDINGS: Lumbar vertebrae have normal height and normal alignment. No fracture or bone destruction. There is degenerative spondylosis. Multilevel vertebral endplate spurring and facet joint arthrosis. Mild lumbar disc height narrowing diffusely through the lumbar spine. Compared with the prior study of 02/09/2009 the vertebral endplate spurs have progressed. There has otherwise been no substantial change. XR/XR lumbar spine 2-3V IMPRESSION: 1. No acute abnormality. 2. Degenerative spondylosis of lumbar spine CT scan - head: Radiologist's impression: FINDINGS: There is no evidence of acute intracranial hemorrhage or territorial infarction. No abnormal mass effect or midline shift is seen. Todd to white matter differentiation is well preserved. No extra-axial fluid collections are identified. The lateral ventricles are symmetrical but moderately enlarged. The todd to white matter differentiation is preserved normal. The osseous structures and soft tissues are normal. The mastoid air cells and visualized portions of the paranasal sinuses are well aerated. CT/CT head/brain wo con IMPRESSION: No acute intracranial process seen. Mild cerebral volume loss. ECG Data Attestation: I personally reviewed and interpreted this ECG as follows: (Normal sinus rhythm, heart rate 87, no ST segment depression or elevation, no T-wave inversion) Discharge Plan Discharge Clinical Impression: Seizure Alcoholic intoxication Qualifiers: Complication of substance-induced condition: uncomplicated Qualified Code(s): F10.920 - Alcohol use, unspecified with intoxication, uncomplicated Patient Disposition: Home, Self-Care Instructions: Alcohol Intoxication (ED), Recurrent Seizures in Adults (ED) Additional Instructions: Please follow-up with your primary care physician tomorrow. If you have any worsening or new symptoms, please return to the emergency room or call 911 Prescriptions: New levetiracetam [Keppra] 1,000 mg tablet 1,000 mg PO BID Qty: 60 RF: 0
[2021-01-11 21:27] VITALS: BP 101/57; PULSE 91; RESP 16; O2SAT 95
--- NOTE | 2021-01-11 21:37 | PC.NURSE ---
IV established, labs and UA obtained and sent. EKG obtained by technology sales consultant at bedside.
[2021-01-11 21:50] LABS: MANUAL DIFF FLAG NO
[2021-01-11 21:53] LABS: Basophils Percent Auto 0.3 % (0-2); Eosinophils Absolute Auto 0.1 X10*3/uL (0.0-0.4); Hematocrit 35.5 % (42-52); Hemoglobin 11.4 g/dl (14.0-18.0); Imm Gran Abs Auto 0.02 X10*3/uL (0.00-0.03); Imm Gran Pct Auto 0.3 % (0.0-0.4); Lymphocytes Absolute Auto 2.6 X10*3/uL (1.2-4.9); Lymphocytes Percent Auto 44.3 % (20-40); Mean Corpuscular HGB Conc 32.1 g/dl (31.0-36.0); Mean Corpuscular Hemoglobin 29.6 pg (27.0-33.0); Mean Corpuscular Volume 92.2 fL (80-98); Mean Platelet Volume 9.7 fL (9.4-12.4); Monocytes Absolute Auto 0.5 X10*3/uL (0.1-1.2); Monocytes Percent Auto 7.8 % (2-11); Neutrophils Absolute Auto 2.7 X10*3/uL (2.0-8.3); Neutrophils Percent Auto 46.3 % (45-73); Platelet Count 148 X10*3/uL (160-400); Red Blood Count 3.85 X10*6/uL (4.60-5.80); Red Cell Distribution Width 17.2 % (11.0-16.0); White Blood Count 5.9 X10*3/uL (4.8-10.8)
[2021-01-11 21:56] LABS: Glucose Urine UA NEG (NEG); Leukocyte Esterase Urine NEG (NEG); Nitrite Urine NEG (NEG); PH 6.5 (5.0-8.0); Urine Blood NEG (NEG); Urine Ketones NEG (NEG); Urine Protein NEG (NEG-TRACE)
[2021-01-11 21:57] LABS: Appearance Urine CLEAR; Color Urine YELLOW
--- NOTE | 2021-01-11 22:00 | PC.NURSE ---
Pt returns from CT on hospital bed without incident.
[2021-01-11 22:01] LABS: INTERNATIONAL NORM RATIO 0.8 (0.9-1.1)
[2021-01-11 22:12] LABS: Ethanol 163 mg/dL
[2021-01-11 22:13] LABS: Lactic Acid 3.5 mmol/L (0.5-2.0)
[2021-01-11 22:15] LABS: Alanine Aminotransferase 16 U/L (0-40); Albumin Level 3.6 g/dL (3.5-5.0); Alkaline Phosphatase 63 U/L (39-117); Anion Gap 18 (12-20); Aspartate Amino Transferase 33 U/L (5-37); Bilirubin Direct 0.2 mg/dL (0.0-0.5); Bilirubin Total 0.5 mg/dL (0.0-1.0); Blood Urea Nitrogen 11 mg/dL (9-16); Calcium 9.1 mg/dL (8.4-10.2); Carbon Dioxide 25 mmol/L (22-29); Chloride 103 mmol/L (96-108); Creatinine Clr Calc Pharmacy 110.4; Estimated Glomerular Filt Rate > 60; Glucose Random 136 mg/dL (60-115); Potassium 3.7 mmol/L (3.3-5.1); Sodium 142 mmol/L (135-145); Total Protein 5.9 g/dL (6.5-8.0)
[2021-01-11 22:19] LABS: Troponin-I High Sensitivity 5.6 ng/L (<3.5-35.0)
[2021-01-11 22:34] LABS: Amphetamine Screen Urine Not Detected (Not Detect); Barbiturates, Urine Not Detected (Not Detect); Benzodiazepines Screen Urine Not Detected (Not Detect); Cannabinoid Screen Urine POSITIVE (Not Detect); Cocaine Screen Urine Not Detected (Not Detect); Opiate Screen Urine Not Detected (Not Detect); Phencyclidine Screen Urine Not Detected (Not Detect)
[2021-01-11 23:13] VITALS: BP 116/71; PULSE 84; RESP 20
[2021-01-11] MEDS: 0.9 % Sodium Chloride 1,000 ML 999 ML IVCONT (23:13)
[2021-01-11] MEDS: levETIRAcetam 750 MG in 0.9 % Sodium Chloride 100 ML 400 MG IV (23:34)
[2021-01-11] MEDS: Thiamine HCL 200 MG in 0.9 % Sodium Chloride 100 ML 204 MG IV (23:44)
[2021-01-11 23:47] LABS: Reflex Lactate? Lactic Acid Added
--- NOTE | 2021-01-12 00:29 | PC.NURSE ---
Repeat lactic obtained and sent.
[2021-01-12 02:05] VITALS: BP 111/67; PULSE 85; RESP 20
[2021-01-12] MEDS: 0.9 % Sodium Chloride 1,000 ML 999 ML IVCONT (02:25)
[2021-01-12 03:15] LABS: Reflex Lactate? 2 Y
[2021-01-12 03:48] VITALS: RESP 16
[2021-01-12 04:23] LABS: ~Lactic Acid-LAB USE ONLY 2.6 mmol/L (0.5-2.0)
[2021-01-12 06:06] VITALS: BP 151/93; PULSE 81; RESP 16
--- NOTE | 2021-01-12 06:08 | PC.NURSE ---
Pt resting in bed. MD requesting repeat lactic to determine plan for DC. Lactic obtained at this time, VSS. Pt scoring a 1 on CIWA, only reporting some anxiety at this time. Awaiting lab results.
[2021-01-12 07:03] VITALS: BP 159/80; PULSE 80; RESP 16
[2021-01-17 14:57] LABS: Levetiracetam Keppra <1.0 mcg/mL (12.0-46.0)
== END 2021-01-12 07:45 | disposition home or self-care (01) ==
PROVIDERS: Emergency Provider Emergency Medicine
DX: R56.9 Unspecified convulsions (principal); F10.920 Alcohol use, unspecified with intoxication, uncomplicated; M54.5 Low back pain; Y90.6 Blood alcohol level of 120-199 mg/100 ml; F17.200 Nicotine dependence, unspecified, uncomplicated; F12.90 Cannabis use, unspecified, uncomplicated; Z71.6 Tobacco abuse counseling; Z79.899 Other long term (current) drug therapy
CPT/HCPCS: 36415; 70450; 72100; 80048; 80076; 80177; 80307; 80320; 81003; 83605; 84484; 85025; 85610; 93005; 96360; 96361; 99285; J1953; J3411

== ENCOUNTER 2021-01-12 20:31 | Emergency (ER) | payer MEDICAID, SELFPAY ==
--- NOTE | ~2021-01-12 | CT_ITS ---
EXAMINATIONS: CT HEAD WITHOUT CONTRAST AND CT CERVICAL SPINE WITHOUT CONTRAST CLINICAL INFORMATION: Fall. Trauma. Intoxicated. COMPARISON: 01/09/2021. TECHNIQUE: Contiguous helical images of the brain were obtained without IV contrast. Contiguous helical images of the cervical spine were obtained without IV contrast. Multiplanar reconstructions were performed. DLP: 1159 mGy-cm. FINDINGS: There are no pathologic extra-axial fluid collections. The lateral, third, fourth ventricles are prominent, though stable and slightly age discordant but concordant with the appearance of the sulci. There is no evidence for acute intraparenchymal hemorrhage or infarct. There is neither mass nor mass effect. There is no shift of midline structures. The paranasal sinuses and mastoid air cells are clear. There are no osseous lesions. The cervical vertebra are in normal alignment. Vertebral body heights are well-preserved. There is mild to moderate multilevel disc height loss. There are no fractures. There is no prevertebral soft tissue swelling. There is no cervical lymphadenopathy. The visualized lung apices are clear. CT/CT cervical spine wo con IMPRESSION: No evidence for acute intracranial injury. No evidence for acute injury to the cervical spine. Stable appearance of age discordant cerebral volume loss. Automated exposure control (Care Dose) Adjustment of the mA and/or kv according to patient size (this includes techniques or standardized protocols for targeted exams where dose is matched to indication / reason for exam; i.e. extremities or head).
--- NOTE | ~2021-01-12 | CT_ITS ---
EXAMINATIONS: CT HEAD WITHOUT CONTRAST AND CT CERVICAL SPINE WITHOUT CONTRAST CLINICAL INFORMATION: Fall. Trauma. Intoxicated. COMPARISON: 01/09/2021. TECHNIQUE: Contiguous helical images of the brain were obtained without IV contrast. Contiguous helical images of the cervical spine were obtained without IV contrast. Multiplanar reconstructions were performed. DLP: 1159 mGy-cm. FINDINGS: There are no pathologic extra-axial fluid collections. The lateral, third, fourth ventricles are prominent, though stable and slightly age discordant but concordant with the appearance of the sulci. There is no evidence for acute intraparenchymal hemorrhage or infarct. There is neither mass nor mass effect. There is no shift of midline structures. The paranasal sinuses and mastoid air cells are clear. There are no osseous lesions. The cervical vertebra are in normal alignment. Vertebral body heights are well-preserved. There is mild to moderate multilevel disc height loss. There are no fractures. There is no prevertebral soft tissue swelling. There is no cervical lymphadenopathy. The visualized lung apices are clear. CT/CT head/brain wo con IMPRESSION: No evidence for acute intracranial injury. No evidence for acute injury to the cervical spine. Stable appearance of age discordant cerebral volume loss. Automated exposure control (Care Dose) Adjustment of the mA and/or kv according to patient size (this includes techniques or standardized protocols for targeted exams where dose is matched to indication / reason for exam; i.e. extremities or head).
[2021-01-12 20:41] VITALS: BP 117/75; BP 133/96; PULSE 67; PULSE 74; RESP 18; TEMP 36.4; O2SAT 98; BMI 22.4
[2021-01-12 22:00] VITALS: BP 120/75; PULSE 70; RESP 18; O2SAT 97
--- NOTE | 2021-01-12 22:52 | PC.NURSE ---
pt is alert and oriented x3 , pt is arrousable, sleeping. c collar on, waiting for provider to see the pt.
--- NOTE | 2021-01-12 23:18 | PC.NURSE ---
providers made aware that the pt has not been seen yet.
[2021-01-13] VITALS: BP 126/82; PULSE 63; RESP 15; TEMP 36.9; O2SAT 97
[2021-01-13 02:00] VITALS: BP 148/92; PULSE 71; RESP 17; TEMP 36.6; O2SAT 96
[2021-01-13 04:00] VITALS: BP 146/91; PULSE 63; RESP 16; TEMP 36.6; O2SAT 96
--- NOTE | 2021-01-13 04:19 | ED_ITS ---
HPI - Alcohol General Chief Complaint: ETOH/Substance Use <Yessenia Chen NP - Last Filed: 01/13/21 04:52> Stated Complaint: etoh <Yessenia Chen NP - Last Filed: 01/13/21 04:52> Time Seen by Provider: 01/12/21 23:30 <Yessenia Chen NP - Last Filed: 01/13/21 04:52> Source: patient and EMS <Yessenia Chen NP - Last Filed: 01/13/21 04:52> Mode of arrival: EMS <Yessenia Chen NP - Last Filed: 01/13/21 04:52> Limitations: altered mental status (Alcohol intoxication) <Yessenia Chen NP - Last Filed: 01/13/21 04:52> History of Present Illness HPI narrative: 55-year-old male with past medical history of seizure disorder and alcohol abuse presents via EMS after being found on the ground at a grocery store. Patient is in a C-collar, suspected head injury and ETOH abuse. Patient is yelling and swearing at EMS staff, and is not answering questions at this time. <Yessenia Chen NP - Last Filed: 01/13/21 04:52> MD complaint: alcohol intoxication and alcohol dependence <Yessenia Chen NP - Last Filed: 01/13/21 04:52> Last drink: Hours (ago) (Within the hour of arrival) <Yessenia Chen NP - Last Filed: 01/13/21 04:52> Chronic alcohol use: Yes <Yessenia Chen NP - Last Filed: 01/13/21 04:52> Previous visits for alcohol intoxication: Yes <Yessenia Chen NP - Last Filed: 01/13/21 04:52> Recent trauma: Yes <Yessenia Chen NP - Last Filed: 01/13/21 04:52> Associated symptoms: denies other symptoms <Yessenia Chen NP - Last Filed: 01/13/21 04:52> Treatments prior to arrival: cervical collar <Yessenia Chen NP - Last Filed: 01/13/21 04:52> Related Data Home Medications: Previous Rx's Medication Instructions Recorded levetiracetam [Keppra] 1,000 mg PO BID #60 tab 01/12/21 <Yessenia Chen NP - Last Filed: 01/13/21 04:52> Allergies/Adverse Reactions: Allergies Allergy/AdvReac Type Severity Reaction Status Date / Time aspirin [ASPIRIN] Allergy Unknown STOMACH Unverified 06/15/20 16:55 UPSET ibuprofen [IBUPROFEN] Allergy Unknown STOMACH Unverified 06/15/20 16:55 UPSET <Yessenia Chen NP - Last Filed: 01/13/21 04:52> Review of Systems Review of Systems: Constitutional: No Fever, No Chills ENT/Mouth: No sore throat, No Rhinorrhea Eyes: No Eye Pain, No Swelling, No Redness Cardiovascular: No Chest Pain, No SOB Respiratory: No Cough, No Sputum Gastrointestinal: No Nausea, No Vomiting, No Diarrhea, No abdominal Pain Genitourinary: No Dysuria, No Hematuria Musculoskeletal: No joint pain, No Myalgias, No Joint Swelling Skin: No Skin Lesions, No rash Neuro: No Weakness, No Numbness, No Loss of Consciousness, No Dizziness, No Headache Psych: Positive alcohol intoxication, No Anxiety, No Depression, No SI/HI/AH/VH Heme/Lymph: No Bruising, No Bleeding,No Lymphadenopathy Endocrine: No Polyuria, No Polydipsia <Yessenia Chen NP - Last Filed: 01/13/21 04:52> Yes all other systems are reviewed and are negative <Yessenia Chen NP - Last Filed: 01/13/21 04:52> [facility] Past Medical History Attestation statement: The following information was validated with the patient. <Yessenia Chen NP - Last Filed: 01/13/21 04:52> Source: old records reviewed <Yessenia Chen NP - Last Filed: 01/13/21 04:52> Medical History: Medical History Alcohol abuse Back pain Seizures <Yessenia Chen NP - Last Filed: 01/13/21 04:52> Social History Social History: Social History Alcohol intake: current Alcohol intake frequency: 3 or more drinks per day Alcohol type: beer and hard liquor Smoking Status: Current every day smoker Substance Use Type: Marijuana Advance Directives: No Advance Directives Information Provided: Yes <Yessenia Chen NP - Last Filed: 01/13/21 04:52> Physical Exam Vital Signs: Vital Signs: Last Vital Signs Temp 97.8 F 01/13/21 04:00 Pulse 74 01/13/21 05:29 Resp 18 01/13/21 05:29 BP 149/86 H 01/13/21 05:29 Pulse Ox 95 01/13/21 05:29 Body Mass Index 22.4 <Yessenia Chen NP - Last Filed: 01/13/21 04:52> Vital Signs: Last Vital Signs Temp 97.8 F 01/13/21 04:00 Pulse 74 01/13/21 05:29 Resp 18 01/13/21 05:29 BP 149/86 H 01/13/21 05:29 Pulse Ox 95 01/13/21 05:29 Body Mass Index 22.4 <Bonnie Leavitt DO - Last Filed: 01/13/21 07:20> Appearance: Alert. Oriented X 2. Acute alcohol intoxication with moderate distress. Eyes: Pupils equal, round and reactive to light. ENT: Pharynx normal. Neck: Normal inspection. Neck supple. CVS: Normal heart rate and rhythm. Pulses normal. Respiratory: No respiratory distress. Breath sounds normal. Abdomen: Soft and nontender. Skin: Skin warm and dry. Normal skin color. Normal skin turgor. Extremities: No lower extremity edema. Neuro: No motor deficit. No sensory deficit. <Yessenia Chen NP - Last Filed: 01/13/21 04:52> Course Course Course Narrative: 55-year-old male with past medical history of seizure disorder and alcohol abuse. Presents via EMS after being found on the ground in a grocery store, is in a C-collar. Patient is a poor historian, unable to describe the events leading up to his arrival to the emergency department. Plan of care is for CT scan of head and cervical spine. CT of head and cervical spine negative for acute findings requiring emergent intervention. C-collar removed. Patient is not interested in detox at this time, patient will metabolized freedom, discharge in the morning. <Yessenia Chen NP - Last Filed: 01/13/21 04:52> MDM - Alcohol Differential Diagnosis Differential diagnosis: Likely alcohol dependence and alcohol intoxication <Yessenia Chen NP - Last Filed: 01/13/21 04:52> Medical Records Attestation: I reviewed the patient's medical records. <Yessenia Chen NP - Last Filed: 01/13/21 04:52> Lab Data Attestation: I reviewed the patient's lab results. <Yessenia Chen NP - Last Filed: 01/13/21 04:52> Imaging Data CT head cervical spine: Attestation: I personally reviewed and interpreted this imaging study as follows: <Yessenia Chen NP - Last Filed: 01/13/21 04:52> Radiologist's impression: EXAMINATIONS: CT HEAD WITHOUT CONTRAST AND CT CERVICAL SPINE WITHOUT CONTRAST CLINICAL INFORMATION: Fall. Trauma. Intoxicated. COMPARISON: 01/09/2021. TECHNIQUE: Contiguous helical images of the brain were obtained without IV contrast. Contiguous helical images of the cervical spine were obtained without IV contrast. Multiplanar reconstructions were performed. DLP: 1159 mGy-cm. FINDINGS: There are no pathologic extra-axial fluid collections. The lateral, third, fourth ventricles are prominent, though stable and slightly age discordant but concordant with the appearance of the sulci. There is no evidence for acute intraparenchymal hemorrhage or infarct. There is neither mass nor mass effect. There is no shift of midline structures. The paranasal sinuses and mastoid air cells are clear. There are no osseous lesions. The cervical vertebra are in normal alignment. Vertebral body heights are well-preserved. There is mild to moderate multilevel disc height loss. There are no fractures. There is no prevertebral soft tissue swelling. There is no cervical lymphadenopathy. The visualized lung apices are clear. CT/CT cervical spine wo con IMPRESSION: No evidence for acute intracranial injury. No evidence for acute injury to the cervical spine. Stable appearance of age discordant cerebral volume loss. Automated exposure control (Care Dose) Adjustment of the mA and/or kv according to patient size (this includes techniques or standardized protocols for targeted exams where dose is matched to indication / reason for exam; i.e. extremities or head). <Yessenia Chen NP - Last Filed: 01/13/21 04:52> Discharge Plan Discharge Clinical Impression: Alcoholic intoxication <Yessenia Chen NP - Last Filed: 01/13/21 04:52> Patient Disposition: Home, Self-Care <Yessenia Chen NP - Last Filed: 01/13/21 04:52> Instructions: Alcohol Intoxication (ED), Abuse of Alcohol (ED), Alcohol Dependence (ED) <Yessenia Chen NP - Last Filed: 01/13/21 04:52> Additional Instructions: Please consider detox. Your CT scan of head neck negative for acute findings requiring emergent intervention. Thank you for choosing this emergency department for evaluation. Please follow-up with primary care physician as needed. Return to the emergency department for any new, concerning, or worsening symptoms. <STEVE Loja Last Filed: 01/13/21 04:52> Prescriptions: No Action levetiracetam [Keppra] 1,000 mg tablet 1,000 mg PO BID Qty: 60 RF: 0 <STEVE Loja Last Filed: 01/13/21 04:52>
--- NOTE | 2021-01-13 05:19 | PC.NURSE ---
apon waking and attempted to discharge pt he states if he is discharged he will kill himself per the pt. charge made aware of the statement. pt is agreeable to be moved into a recliner at this time and to be seen by n. pt c collar is off by provider.
--- NOTE | 2021-01-13 05:26 | PC.NURSE ---
pt states he just wants to , states his life sucks, homeless. chronic pain, and is sick of fighting the world.
--- NOTE | 2021-01-13 05:27 | PC.NURSE ---
pt is s1 with a plan to walk in front of a car.
[2021-01-13 05:29] VITALS: BP 149/86; PULSE 74; RESP 18; O2SAT 95
--- NOTE | 2021-01-13 09:41 | MHC.CARE ---
0900: Met with pt at the request of Dr. Leavitt for a consult due to SI statements. Met with Dr. Leavitt prior to my meeting with pt and was advised that she had presented him with discharge and he made a statement regarding jumping in front of a moving car. I met with pt who advised me that he was in pain due to back issues such as degenerative disk disease, curvature of the spine and a host of other back issues. 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 Pt stated that he feels stupid and Pathetic that he is in the situation he is in. Pt expressed some frustration regarding not being eligible for veterans benefits. 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 Pt stated that during that particular time period, individuals injured during basic training were not eligible for benefits. Pt stated that he was behind a dumpster, where he sleeps, when he had a seizure and was brought in to the hospital. Pt stated it was cold and wanted somewhere to sleep. I asked about his SI statements, and pt stated I don't feel that way when asked why he made those statements pt stated I wanted help pt clarified that he wants help being normal again (not drinking or being homeless). Pt stated that he can stay with his brother, where he was staying before. The brother's ex is staying there also and had made some gestures towards him that made him uncomfortable so he left. Pt was referred to Cindy Guzman to provide resources. Bus tickets (2) were secured for the pt so he can get to [place]. Dr. Leavitt briefed on the outcome of the consult.
--- NOTE | 2021-01-13 10:40 | MHC.RECOVSUP ---
Recovery Support note: Patient is a 55 year old Amharic speaking male who presented to [facility] intoxicated making vague SI statements. Patient was seen by CARE Team and cleared for discharge. This typewriter tester met with patient to discuss alcohol use and recovery supports. Patient reports he was staying with his brother and his brother's ex- and that it was a stressful living arrangement and he started drinking due to the stress. Patient reports he was at [facility] for detox 2 months ago and was discharged to a rehabilitation facility. Patient declines detox at this time, stating that he does not think he will need it as he has a good plan in place moving forward. Patient reports he plans to go to the pharmacy in [place] to get refills on his medications. Patient reports he has family members who he believes will be able to take him in and let him and assist him with getting connected to VA supports such as [place] [facility]. Patient reports he was at [facility] in [place] however was kicked out due to his drinking. Discussed relapse prevention and maintaining sobriety with patient. Patient reports confidence he will be able to maintain sobriety. Discussed recovery centers and IOP with patient and provided him with information on these resources. Discussed case with CARE Team, Chris.
== END 2021-01-13 10:43 | disposition home or self-care (01) ==
PROVIDERS: Emergency Provider Emergency Medicine
DX: F10.229 Alcohol dependence with intoxication, unspecified (principal); G44.309 Post-traumatic headache, unspecified, not intractable; M54.2 Cervicalgia; Y90.9 Presence of alcohol in blood, level not specified; F17.200 Nicotine dependence, unspecified, uncomplicated; F12.90 Cannabis use, unspecified, uncomplicated; Z71.6 Tobacco abuse counseling; Z79.899 Other long term (current) drug therapy
CPT/HCPCS: 70450; 72125; 99284

== ENCOUNTER 2021-05-07 20:13 | Emergency (ER) | payer MEDICAID, SELFPAY ==
[2021-05-07 20:30] VITALS: BP 110/70; BP 90/51; PULSE 82; PULSE 83; RESP 18; TEMP 37.1; O2SAT 95; O2SAT 96; BMI 29.4
--- NOTE | 2021-05-07 20:43 | ED.ALCOHOL ---
HPI - Alcohol General Chief Complaint: ETOH/Substance Use Stated Complaint: etoh Time Seen by Provider: 05/07/21 20:37 Source: patient and EMS Mode of arrival: other Limitations: other (Intoxicated) History of Present Illness HPI narrative: Patient comes to the emergency room. EMS reports that the patient was found intoxicated in the street, patient initially did not want to come to the hospital but EMS convinced the patient did so calmly. Patient has no complaints. Patient is clearly intoxicated. Patient is alert and oriented, somnolent but easily arousable. Patient admits to drinking alcohol and smoking marijuana prior to arrival. Patient denies suicidal or homicidal ideation MD complaint: alcohol intoxication Related Data Previous Rx's Medication Instructions Recorded levetiracetam 1,000 mg tablet 1,000 mg PO BID #60 tab 01/12/21 (Keppra) cefuroxime axetil 500 mg tablet 500 mg PO BID #14 tab 05/08/21 Allergies Allergy/AdvReac Type Severity Reaction Status Date / Time aspirin [ASPIRIN] Allergy Unknown STOMACH Verified 05/07/21 20:30 UPSET ibuprofen [IBUPROFEN] Allergy Unknown STOMACH Verified 05/07/21 20:30 UPSET Review of Systems Review of Systems: Constitutional : No Weight loss, No Fever, No Chills, No Night Sweats, No Fatigue, No Malaise ENT/Mouth : No Hearing loss, No Ear Pain, No Nasal Congestion, No Sinus Pain, No Hoarseness, No sore throat, No Rhinorrhea, No Swallowing Difficulty Eyes: No Eye Pain, No Swelling, No Redness, No Foreign Body, No Discharge, No Vision Changes Cardiovascular : No Chest Pain, No SOB, No Dyspnea on Exertion, No Orthopnea, No Edema, No Palpitations Respiratory : No Cough, No Sputum, No Wheezing, No Smoke Exposure, No Dyspnea Gastrointestinal : No Nausea, No Vomiting, No Diarrhea, No Constipation, No abdominal Pain, No Hematochezia, No Melena Genitourinary : no irregular bleeding, No Dysuria, No Urinary Frequency, No Hematuria, No Urinary Incontinence, No Urgency, No Flank Pain, No Urinary Flow Changes, No Hesitancy Musculoskeletal : No joint pain, No Myalgias, No Joint Swelling Skin : No Skin Lesions, No rash Neuro : No Weakness, No Numbness, No Paresthesias, No Loss of Consciousness, No Dizziness, No Headache Psych : No Anxiety/Panic, No Depression, No SI/HI/AH/VH, No Social Issues, Heme/Lymph: No Bruising, No Bleeding,No Lymphadenopathy Endocrine : No Polyuria, No Polydipsia, No Temperature Intolerance PMFSH Past Medical History Medical History Alcohol abuse Back pain Seizures Social History Social History Alcohol intake: current Alcohol intake frequency: 3 or more drinks per day Alcohol type: beer and hard liquor Substance Use Type: Marijuana Advance Directives: No Advance Directives Information Provided: No Physical Exam Vital Signs: Vital Signs: Last Vital Signs Temp 98.7 F 05/07/21 20:30 Pulse 83 05/07/21 20:30 Resp 18 05/07/21 20:30 BP 90/51 L 05/07/21 20:30 Pulse Ox 95 05/07/21 20:30 Body Mass Index 29.4 Const: Other: Appearance: Alert. Oriented X3. No acute distress. Intoxicated, calm and cooperative, easily arousable Eyes: Pupils equal, round and reactive to light. ENT: Pharynx normal. Neck: Normal inspection. Neck supple. No lymph nodes noted. No crepitus CVS: Normal heart rate and rhythm. Pulses normal. Normal S1 and S2 Respiratory: No respiratory distress. Breath sounds normal. No Wheezing. No rales Abdomen: Soft and nontender. No rigidity. No distention. good BS x4 Skin: Skin warm and dry. Normal skin color. Normal skin turgor. Extremities: No lower extremity edema. No lower extremity edema. No Lacerations. No Rash Neuro: Oriented X 3. No motor deficit. Intoxicated Course Course Course Narrative: Patient is awake, alert, walking around the emergency room, asking for food. Patient's lactic acid elevated, likely secondary to alcoholic ketoacidosis which has been diagnosed in the past. Patient receiving more fluids, lactic acid will be recheck. Sepsis is not suspected. Lactic acid likely elevated due to chronic elevated LFTs secondary to alcoholism. Patient denies abdominal pain. Patient has a UTI, given ceftriaxone IV in the ED. patient has no fever or symptoms, unrelated to the elevated lactic acid, sepsis not suspected. Patient requested his nighttime dose of Keppra, 1000 mg, provided to the patient Patient will need more fluid, then repeat lactic acid, patient likely will be discharged, metabolize to freedom. Physician observation started at 01:40, patient stable Sign-out given to Dr. Sebastian MDM - Alcohol Lab Data Result diagrams: 05/07/21 21:15 05/07/21 21:15 Labs: Lab Results 05/07/21 05/07/21 05/07/21 Range/Units 21:15 21:15 21:15 WBC 3.9 L (4.8-10.8) X10*3/uL RBC 3.96 L (4.60-5.80) X10*6/uL Hgb 12.8 L (14.0-18.0) g/dl Hct 38.5 L (42-52) % MCV 97.2 (80-98) fL MCH 32.3 (27.0-33.0) pg MCHC 33.2 (31.0-36.0) g/dl RDW 19.7 H (11.0-16.0) % Plt Count 120 L (160-400) X10*3/uL MPV 10.2 (9.4-12.4) fL Immature Gran % (Auto) 0.8 H (0.0-0.4) % Neut % (Auto) 29.5 L (45-73) % Lymph % (Auto) 53.1 H (20-40) % [place] % (Auto) 11.4 H (2-11) % Eos % (Auto) 3.9 (0-4) % Baso % (Auto) 1.3 (0-2) % Lymph # (Auto) 2.1 (1.2-4.9) X10*3/uL [place] # (Auto) 0.4 (0.1-1.2) X10*3/uL Eos # (Auto) 0.2 (0.0-0.4) X10*3/uL Baso # (Auto) 0.1 (0.0-0.2) X10*3/uL Abs Immat Gran (auto) 0.03 (0.00-0.03) X10*3/uL Absolute Neuts (auto) 1.1 L (2.0-8.3) X10*3/uL Absolute Nucleated RBC 0.000 (0.0-0.012) X10*3/uL Nucleated RBC % (auto) 0.0 (0.0-0.2) /100WBC PT 9.8 L (9.9-13.0) SEC INR 0.9 (0.9-1.1) Sodium 145 (135-145) mmol/L Potassium 3.4 (3.3-5.1) mmol/L Chloride 105 (96-108) mmol/L Carbon Dioxide 24 (22-29) mmol/L Anion Gap 19 (12-20) BUN 6 L (9-16) mg/dL Creatinine 0.79 (0.5-1.4) mg/dL Estim Creat Clear Calc 97.1 Estimated GFR > 60 Random Glucose 86 D (60-115) mg/dL Lactic Acid (0.5-2.0) mmol/L Lactic Acid Fup @ 2Hr (0.5-2.0) mmol/L Calcium 8.0 L D (8.4-10.2) mg/dL Magnesium 1.6 (1.6-2.6) mg/dL Total Bilirubin 0.6 (0.0-1.0) mg/dL Direct Bilirubin 0.4 (0.0-0.5) mg/dL AST 230 H (5-37) U/L ALT 69 H (0-40) U/L Alkaline Phosphatase 160 H D (39-117) U/L Total Protein 5.6 L (6.5-8.0) g/dL Albumin 3.1 L (3.5-5.0) g/dL Urine Color Urine Appearance Urine pH (5.0-8.0) Ur Specific [place] (1.005-1.025) Urine Protein (NEG-TRACE) MG/DL Urine Glucose (UA) (NEG) MG/DL Urine Ketones (NEG) MG/DL Urine Blood (NEG) Urine Nitrite (NEG) Ur Leukocyte Esterase (NEG) Urine RBC (0) /HPF Urine WBC (0-4) /HPF Urine WBC Clumps Ur Squamous Epith Cells /LPF Urine Bacteria /LPF Urine Opiates Screen (Not Detect) Ur Barbiturates Screen (Not Detect) Ur Phencyclidine Scrn (Not Detect) Ur Amphetamines Screen (Not Detect) U Benzodiazepines Scrn (Not Detect) Urine Cocaine Screen (Not Detect) U Marijuana (THC) Screen (Not Detect) Ethyl Alcohol mg/dL 05/07/21 05/07/21 05/07/21 Range/Units 21:15 21:15 21:15 WBC (4.8-10.8) X10*3/uL RBC (4.60-5.80) X10*6/uL Hgb (14.0-18.0) g/dl Hct (42-52) % MCV (80-98) fL MCH (27.0-33.0) pg MCHC (31.0-36.0) g/dl RDW (11.0-16.0) % Plt Count (160-400) X10*3/uL MPV (9.4-12.4) fL Immature Gran % (Auto) (0.0-0.4) % Neut % (Auto) (45-73) % Lymph % (Auto) (20-40) % [place] % (Auto) (2-11) % Eos % (Auto) (0-4) % Baso % (Auto) (0-2) % Lymph # (Auto) (1.2-4.9) X10*3/uL [place] # (Auto) (0.1-1.2) X10*3/uL Eos # (Auto) (0.0-0.4) X10*3/uL Baso # (Auto) (0.0-0.2) X10*3/uL Abs Immat Gran (auto) (0.00-0.03) X10*3/uL Absolute Neuts (auto) (2.0-8.3) X10*3/uL Absolute Nucleated RBC (0.0-0.012) X10*3/uL Nucleated RBC % (auto) (0.0-0.2) /100WBC PT (9.9-13.0) SEC INR (0.9-1.1) Sodium (135-145) mmol/L Potassium (3.3-5.1) mmol/L Chloride (96-108) mmol/L Carbon Dioxide (22-29) mmol/L Anion Gap (12-20) BUN (9-16) mg/dL Creatinine (0.5-1.4) mg/dL Estim Creat Clear Calc Estimated GFR Random Glucose (60-115) mg/dL Lactic Acid 3.9 H* (0.5-2.0) mmol/L Lactic Acid Fup @ 2Hr (0.5-2.0) mmol/L Calcium (8.4-10.2) mg/dL Magnesium (1.6-2.6) mg/dL Total Bilirubin (0.0-1.0) mg/dL Direct Bilirubin (0.0-0.5) mg/dL AST (5-37) U/L ALT (0-40) U/L Alkaline Phosphatase (39-117) U/L Total Protein (6.5-8.0) g/dL Albumin (3.5-5.0) g/dL Urine Color YELLOW Urine Appearance HAZY Urine pH 6.0 (5.0-8.0) Ur Specific [place] <= 1.005 (1.005-1.025) Urine Protein NEG (NEG-TRACE) MG/DL Urine Glucose (UA) NEG (NEG) MG/DL Urine Ketones 5 (NEG) MG/DL Urine Blood NEG (NEG) Urine Nitrite POS H (NEG) Ur Leukocyte Esterase 2+ H (NEG) Urine RBC 1-4 (0) /HPF Urine WBC 30-49 H (0-4) /HPF Urine WBC Clumps NOTED Ur Squamous Epith Cells TRACE /LPF Urine Bacteria 2+ /LPF Urine Opiates Screen (Not Detect) Ur Barbiturates Screen (Not Detect) Ur Phencyclidine Scrn (Not Detect) Ur Amphetamines Screen (Not Detect) U Benzodiazepines Scrn (Not Detect) Urine Cocaine Screen (Not Detect) U Marijuana (THC) Screen (Not Detect) Ethyl Alcohol 258 mg/dL 05/07/21 05/08/21 Range/Units 21:15 00:45 WBC (4.8-10.8) X10*3/uL RBC (4.60-5.80) X10*6/uL Hgb (14.0-18.0) g/dl Hct (42-52) % MCV (80-98) fL MCH (27.0-33.0) pg MCHC (31.0-36.0) g/dl RDW (11.0-16.0) % Plt Count (160-400) X10*3/uL MPV (9.4-12.4) fL Immature Gran % (Auto) (0.0-0.4) % Neut % (Auto) (45-73) % Lymph % (Auto) (20-40) % [place] % (Auto) (2-11) % Eos % (Auto) (0-4) % Baso % (Auto) (0-2) % Lymph # (Auto) (1.2-4.9) X10*3/uL [place] # (Auto) (0.1-1.2) X10*3/uL Eos # (Auto) (0.0-0.4) X10*3/uL Baso # (Auto) (0.0-0.2) X10*3/uL Abs Immat Gran (auto) (0.00-0.03) X10*3/uL Absolute Neuts (auto) (2.0-8.3) X10*3/uL Absolute Nucleated RBC (0.0-0.012) X10*3/uL Nucleated RBC % (auto) (0.0-0.2) /100WBC PT (9.9-13.0) SEC INR (0.9-1.1) Sodium (135-145) mmol/L Potassium (3.3-5.1) mmol/L Chloride (96-108) mmol/L Carbon Dioxide (22-29) mmol/L Anion Gap (12-20) BUN (9-16) mg/dL Creatinine (0.5-1.4) mg/dL Estim Creat Clear Calc Estimated GFR Random Glucose (60-115) mg/dL Lactic Acid (0.5-2.0) mmol/L Lactic Acid Fup @ 2Hr 3.7 H* (0.5-2.0) mmol/L Calcium (8.4-10.2) mg/dL Magnesium (1.6-2.6) mg/dL Total Bilirubin (0.0-1.0) mg/dL Direct Bilirubin (0.0-0.5) mg/dL AST (5-37) U/L ALT (0-40) U/L Alkaline Phosphatase (39-117) U/L Total Protein (6.5-8.0) g/dL Albumin (3.5-5.0) g/dL Urine Color Urine Appearance Urine pH (5.0-8.0) Ur Specific [place] (1.005-1.025) Urine Protein (NEG-TRACE) MG/DL Urine Glucose (UA) (NEG) MG/DL Urine Ketones (NEG) MG/DL Urine Blood (NEG) Urine Nitrite (NEG) Ur Leukocyte Esterase (NEG) Urine RBC (0) /HPF Urine WBC (0-4) /HPF Urine WBC Clumps Ur Squamous Epith Cells /LPF Urine Bacteria /LPF Urine Opiates Screen Not Detected (Not Detect) Ur Barbiturates Screen Not Detected (Not Detect) Ur Phencyclidine Scrn Not Detected (Not Detect) Ur Amphetamines Screen Not Detected (Not Detect) U Benzodiazepines Scrn Not Detected (Not Detect) Urine Cocaine Screen Not Detected (Not Detect) U Marijuana (THC) Screen POSITIVE H (Not Detect) Ethyl Alcohol mg/dL Discharge Plan Discharge Clinical Impression: Alcoholic intoxication, Acute UTI Patient Disposition: Home, Self-Care Instructions: Urinary Tract Infection in Men (ED), Alcohol Intoxication (ED) Additional Instructions: Please follow-up with your primary care physician tomorrow. If you have any worsening or new symptoms, please return to the emergency room or call 911 Prescriptions: New cefuroxime axetil 500 mg tablet 500 mg PO BID Qty: 14 RF: 0 No Action levetiracetam [Keppra] 1,000 mg tablet 1,000 mg PO BID Qty: 60 RF: 0
[2021-05-07 21:22] LABS: MANUAL DIFF FLAG NO
[2021-05-07 21:28] LABS: Appearance Urine HAZY; Color Urine YELLOW; Glucose Urine UA NEG (NEG); Leukocyte Esterase Urine 2+ (NEG); Nitrite Urine POS (NEG); Specific Gravity - Urine <= 1.005 (1.005-1.025); UACC Culture Trigger YES; Urine Blood NEG (NEG); Urine Ketones 5 MG/DL (NEG); Urine Protein NEG (NEG-TRACE)
[2021-05-07 21:33] LABS: Basophils Absolute Auto 0.1 X10*3/uL (0.0-0.2); Basophils Percent Auto 1.3 % (0-2); Eosinophils Absolute Auto 0.2 X10*3/uL (0.0-0.4); Eosinophils Percent Auto 3.9 % (0-4); Hematocrit 38.5 % (42-52); Hemoglobin 12.8 g/dl (14.0-18.0); Imm Gran Abs Auto 0.03 X10*3/uL (0.00-0.03); Imm Gran Pct Auto 0.8 % (0.0-0.4); Lymphocytes Absolute Auto 2.1 X10*3/uL (1.2-4.9); Lymphocytes Percent Auto 53.1 % (20-40); Mean Corpuscular HGB Conc 33.2 g/dl (31.0-36.0); Mean Corpuscular Hemoglobin 32.3 pg (27.0-33.0); Mean Corpuscular Volume 97.2 fL (80-98); Mean Platelet Volume 10.2 fL (9.4-12.4); Monocytes Absolute Auto 0.4 X10*3/uL (0.1-1.2); Monocytes Percent Auto 11.4 % (2-11); Neutrophils Absolute Auto 1.1 X10*3/uL (2.0-8.3); Neutrophils Percent Auto 29.5 % (45-73); Platelet Count 120 X10*3/uL (160-400); Red Blood Count 3.96 X10*6/uL (4.60-5.80); Red Cell Distribution Width 19.7 % (11.0-16.0); White Blood Count 3.9 X10*3/uL (4.8-10.8)
[2021-05-07 21:42] LABS: INTERNATIONAL NORM RATIO 0.9 (0.9-1.1); Prothrombin Time 9.8 SEC (9.9-13.0)
[2021-05-07 21:43] LABS: Ethanol 258 mg/dL
[2021-05-07 21:44] LABS: Lactic Acid 3.9 mmol/L (0.5-2.0)
[2021-05-07 21:45] LABS: Bacteria Urine 2+ /LPF; Squamous Epithelial Cell Urine TRACE /LPF; WBC Clumps Urine NOTED; WBC Urine 30-49 /HPF (0-4)
[2021-05-07 21:50] LABS: Alanine Aminotransferase 69 U/L (0-40); Albumin Level 3.1 g/dL (3.5-5.0); Alkaline Phosphatase 160 U/L (39-117); Anion Gap 19 (12-20); Aspartate Amino Transferase 230 U/L (5-37); Bilirubin Direct 0.4 mg/dL (0.0-0.5); Bilirubin Total 0.6 mg/dL (0.0-1.0); Blood Urea Nitrogen 6 mg/dL (9-16); Carbon Dioxide 24 mmol/L (22-29); Chloride 105 mmol/L (96-108); Creatinine Clr Calc Pharmacy 97.1; Estimated Glomerular Filt Rate > 60; Glucose Random 86 mg/dL (60-115); Potassium 3.4 mmol/L (3.3-5.1); Sodium 145 mmol/L (135-145); Total Protein 5.6 g/dL (6.5-8.0)
[2021-05-07] MEDS: 0.9 % Sodium Chloride 1,000 ML 999 ML IVCONT (22:03)
[2021-05-07 23:05] LABS: Magnesium 1.6 mg/dL (1.6-2.6)
[2021-05-07 23:19] LABS: Reflex Lactate? Lactic Acid Added
[2021-05-07 23:24] LABS: Amphetamine Screen Urine Not Detected (Not Detect); Barbiturates, Urine Not Detected (Not Detect); Benzodiazepines Screen Urine Not Detected (Not Detect); Cannabinoid Screen Urine POSITIVE (Not Detect); Cocaine Screen Urine Not Detected (Not Detect); Opiate Screen Urine Not Detected (Not Detect); Phencyclidine Screen Urine Not Detected (Not Detect)
[2021-05-08 01:16] LABS: ~Lactic Acid-LAB USE ONLY 3.7 mmol/L (0.5-2.0)
--- NOTE | 2021-05-08 01:17 | PC.NURSE ---
CRITICAL LACTIC ACID 3.7. DR. ALEJO AWARE AND ORDERED 2 L OF NS.
[2021-05-08] MEDS: levETIRAcetam 1,000 MG TABLET 1000 MG PO (01:45)
[2021-05-08] MEDS: cefTRIAXone sodium 1 GM in 0.9 % Sodium Chloride 50 ML IV (01:45)
[2021-05-08] MEDS: 0.9 % Sodium Chloride 1,000 ML 999 ML IVCONT ×2 (01:46→01:47)
[2021-05-08 02:00] VITALS: BP 112/68; PULSE 74; RESP 16
[2021-05-08 02:48] LABS: Reflex Lactate? 2 Y
[2021-05-08 04:00] VITALS: BP 114/64; PULSE 78; RESP 16
--- NOTE | 2021-05-08 04:14 | PC.NURSE ---
2L NS INFUSED W/O DIFFICULTY. SITE INTACT. PT REQUESTING FOOD AND ARNEL ORALIA. WILL CONTINUE TO MONITOR PT.
[2021-05-08 05:35] LABS: ~Lactic Acid-LAB USE ONLY 3.1 mmol/L (0.5-2.0)
[2021-05-08 06:00] VITALS: BP 112/60; PULSE 78; RESP 16
[2021-05-12 07:21] LABS: Levetiracetam Keppra 28.1 mcg/mL (12.0-46.0)
== END 2021-05-08 06:53 | disposition home or self-care (01) ==
PROVIDERS: Emergency Provider Emergency Medicine
DX: F10.129 Alcohol abuse with intoxication, unspecified (principal); N39.0 Urinary tract infection, site not specified; F12.90 Cannabis use, unspecified, uncomplicated; Y90.8 Blood alcohol level of 240 mg/100 ml or more; Z79.899 Other long term (current) drug therapy; Z71.41 Alcohol abuse counseling and surveillance of alcoholic
CPT/HCPCS: 36415; 80048; 80076; 80177; 80307; 81001; 82077; 83605; 83735; 85025; 85610; 87086; 87088; 87186; 96361; 96374; 99282; 99285; J0696

== ENCOUNTER 2021-05-08 22:20 | Emergency (ER) | payer MEDICAID, SELFPAY ==
[2021-05-08 22:26] VITALS: BP 113/83; PULSE 76; RESP 16; O2SAT 96; BMI 25.5
--- NOTE | 2021-05-08 23:15 | ED_ITS ---
HPI - Alcohol General Chief Complaint: ETOH/Substance Use Stated Complaint: Etoh Time Seen by Provider: 05/08/21 23:14 Source: EMS Mode of arrival: EMS History of Present Illness HPI narrative: Patient intoxicated was here last night brought by EMS for same no signs of injury refusing to answer any question Related Data Previous Rx's Medication Instructions Recorded levetiracetam 1,000 mg tablet 1,000 mg PO BID #60 tab 01/12/21 (Keppra) cefuroxime axetil 500 mg tablet 500 mg PO BID #14 tab 05/08/21 Allergies Allergy/AdvReac Type Severity Reaction Status Date / Time aspirin [ASPIRIN] Allergy Unknown STOMACH Verified 05/07/21 20:30 UPSET ibuprofen [IBUPROFEN] Allergy Unknown STOMACH Verified 05/07/21 20:30 UPSET Review of Systems Review of Systems: Yes Unobtainable due to mental status PMFSH Past Medical History Medical History Alcohol abuse Back pain Seizures Social History Social History Alcohol intake: current Alcohol intake frequency: 3 or more drinks per day Alcohol type: beer and hard liquor Substance Use Type: Marijuana Advance Directives: No Advance Directives Information Provided: Yes Physical Exam Vital Signs: Vital Signs: Last Vital Signs Pulse 14 L 05/09/21 02:00 Resp 14 05/09/21 04:00 BP 113/83 05/08/21 22:26 Pulse Ox 96 05/08/21 22:26 Body Mass Index 25.5 Const: General: no acute distress and intoxicated appearing Nutritional Appearance: average body habitus HENMT: Head: Yes normocephalic and Yes atraumatic Ears: hearing grossly no rmal bilaterally and external ears normal Face and sinus: Yes normal facial exam Eyes: General: appearance normal, both eyes and all related structures Neck: Neck: Yes full ROM, Yes no lymphadenopathy and No tender Resp: Effort & Inspection: normal respiratory effort Auscultation: clear to auscultation bilaterally Cardio: Palpation: normal PMI Rate: regular rate Rhythm: regular rhythm Heart sounds: S1 normal heart sound present and S2 normal heart sound present GI: Inspection: Yes normal to inspection Palpation (GI): Soft to palpation and nontender Auscultation: normal bowel sounds : General: Yes Bimanual renal exam normal bilaterally Back/Spine/Pelvis: Cervical Spine: normal cervical lordosis and No Cervical spine tenderness Thoracic/Lumbar Spine: No thoracic spinal tenderness and No lumbar spinal tenderness Skin: General skin exam: no rashes or lesions noted Neuro: General: no focal motor deficits Discharge Plan Discharge Clinical Impression: Alcoholic intoxication Qualifiers: Complication of substance-induced condition: uncomplicated Qualified Code(s): F10.920 - Alcohol use, unspecified with intoxication, uncomplicated Patient Disposition: Home, Self-Care Instructions: Alcohol Intoxication (ED) Additional Instructions: Stop drinking alcohol to continue taking her medication for infection Prescriptions: No Action levetiracetam [Keppra] 1,000 mg tablet 1,000 mg PO BID Qty: 60 RF: 0 cefuroxime axetil 500 mg tablet 500 mg PO BID Qty: 14 RF: 0 Interventions: ED Discharge Assessment Last Done: 05/09/21 05:30 Discharge Date/Time: 05/09/21 05:56
[2021-05-09] VITALS: RESP 14
[2021-05-09 02:00] VITALS: PULSE 14
[2021-05-09 04:00] VITALS: RESP 14
[2021-05-09] MEDS: levETIRAcetam 1,000 MG TABLET 1000 MG PO (05:24)
== END 2021-05-09 05:56 | disposition home or self-care (01) ==
PROVIDERS: Emergency Provider Internal Medicine
DX: F10.129 Alcohol abuse with intoxication, unspecified (principal); Y90.9 Presence of alcohol in blood, level not specified
CPT/HCPCS: 99284

== ENCOUNTER 2021-05-09 12:21 | Emergency (ER) | payer MEDICAID, SELFPAY ==
[2021-05-09 12:27] VITALS: BP 110/70; PULSE 76; O2SAT 96; BMI 23.7
[2021-05-09 12:43] VITALS: BP 126/73; PULSE 90; RESP 18; TEMP 37.1; O2SAT 96
--- NOTE | 2021-05-09 14:34 | ED.GENADULT ---
HPI - General Adult General Chief complaint: Seizure Stated complaint: ETOH Time Seen by Provider: 05/09/21 14:26 Source: patient and EMS Mode of arrival: EMS Limitations: no limitations History of Present Illness HPI narrative: 56 y/o homeless male with history of alcohol abuse and dependence, seizures on Keppra who presents to the ER via EMS with possible seizure. He reports thinking he had a seizure and states he urinated himself. He reports running out of his Keppra, last took it yesterday. He is a poor historian and cannot recall where he was when this happened or who called 911. He was AAO on EMS arrival. He reports abdominal pain on arrival. He was given a sandwich and brannon rizwana. complaint: seizure Onset (ago): minute(s) Location: abdomen Radiation: non-radiation Severity: mild Severity scale (1-10): 3 Quality: aching Pain Consistency: constant Relieving factors: eating Exacerbating factors: none Associated symptoms: confusion and other (incontinence ) Treatments prior to arrival: none Related Data Previous Rx's Medication Instructions Recorded levetiracetam 1,000 mg tablet 1,000 mg PO BID #60 tab 01/12/21 (Keppra) cefuroxime axetil 500 mg tablet 500 mg PO BID #14 tab 05/08/21 levetiracetam 1,000 mg tablet 1,000 mg PO BID #60 tab 05/09/21 (Keppra) Allergies Allergy/AdvReac Type Severity Reaction Status Date / Time aspirin [ASPIRIN] Allergy Unknown STOMACH Verified 05/07/21 20:30 UPSET ibuprofen [IBUPROFEN] Allergy Unknown STOMACH Verified 05/07/21 20:30 UPSET Review of Systems Constitutional: Constitutional: Denies chills, Denies fever(s) and Reports headache(s) Eyes: Eyes: Reports no additional eye complaints ENT: Reports headache(s), Denies neck pain and Denies sore throat Cardiovascular: Cardiovascular: Denies chest pain and Denies dyspnea Respiratory: Respiratory: Denies cough and Denies dyspnea Gastrointestinal: Gastrointestinal: Reports abdominal pain, Reports belching, Denies diarrhea, Denies nausea and Denies vomiting Genitourinary: Genitourinary: Reports urinary incontinence Musculoskeletal: Musculoskeletal: Reports myalgias and Denies neck pain Integumentary/Breasts: Skin/Breast: Denies rash Neurologic: Reports confusion, Reports headache(s) and Reports memory loss Psychiatric: Psychiatric: Reports confusion and Reports memory loss Hematologic/Lymphatic: Hematologic/Lymphatic: Denies easy bleeding and Denies easy bruising PMFSH Past Medical History Medical History Alcohol abuse Back pain Seizures Social History Social History Alcohol intake: current Alcohol intake frequency: 3 or more drinks per day Alcohol type: beer and hard liquor Substance Use Type: Marijuana Advance Directives: No Advance Directives Information Provided: No Physical Exam Vital Signs: Vital Signs: Last Vital Signs Temp 98.0 F 05/09/21 16:03 Pulse 80 05/09/21 16:03 Resp 18 05/09/21 16:03 BP 154/97 H 05/09/21 16:03 Pulse Ox 98 05/09/21 16:03 Body Mass Index 23.7 Appearance: Alert. Oriented X3. No acute distress. Sunburned Eyes: Pupils equal, round and reactive to light. ENT: Pharynx normal. Neck: Normal inspection. Neck supple. CVS: Normal heart rate and rhythm. Pulses normal. Respiratory: No respiratory distress. Breath sounds normal. Abdomen: Soft and nontender. +BS x4 Skin: Skin warm and dry. Normal skin color. Normal skin turgor. No rashes. Extremities: No lower extremity edema. Dried urine stain on his pants. Neuro: Oriented X 3. No motor deficit. No sensory deficit. Nonfocal. Speaks in complete sentences. Const: General: confusion Orientation/consciousness: confusion Neuro: General: confusion Course Course Course Narrative: 56 y/o male with history of alcohol abuse and seizures presents after having a possible seizure. Not postictal per EMS. Unclear if it was witnessed or not. He denies any injury. Eating and drinking. Neuro exam is nonfocal. Will check basic labs including lactic acid and CPK to help differentiate if he had a true seizure or not. ETOH level and utox ordered. Reevaluation(s) Reevaluation #1: ETOH level 144. Lactic acid 4.5 concerning for true seizure activity. Elevated lactic acid is most likely due to seizure and NOT sepsis. Unlikely ETOH withdrawal seizure as he still has alcohol in his system. He has no signs of infection at this time. IVF ordered, lactic acid should clear quickly if seizure is cause. Reevaluation #2: Lactic acid improved but did not normalize. Again this is thought to be due to seizure and not sepsis. It will continue to clear on its own. He is declining detox at this time. A Rx for his Nicanorppra was sent to the pharmacy. He is stable for discharge home. Medical Decision Making Lab Data Result diagrams: 05/09/21 14:46 05/09/21 14:46 Labs: Lab Results 05/09/21 05/09/21 05/09/21 Range/Units 14:45 14:45 14:46 WBC 3.7 L (4.8-10.8) X10*3/uL RBC 3.65 L (4.60-5.80) X10*6/uL Hgb 11.9 L (14.0-18.0) g/dl Hct 35.9 L (42-52) % MCV 98.4 H (80-98) fL MCH 32.6 (27.0-33.0) pg MCHC 33.1 (31.0-36.0) g/dl RDW 19.9 H (11.0-16.0) % Plt Count 112 L (160-400) X10*3/uL MPV 9.4 (9.4-12.4) fL Immature Gran % (Auto) 0.5 H (0.0-0.4) % Neut % (Auto) 43.7 L (45-73) % Lymph % (Auto) 41.3 H (20-40) % [place] % (Auto) 10.7 (2-11) % Eos % (Auto) 2.7 (0-4) % Baso % (Auto) 1.1 (0-2) % Lymph # (Auto) 1.5 (1.2-4.9) X10*3/uL [place] # (Auto) 0.4 (0.1-1.2) X10*3/uL Eos # (Auto) 0.1 (0.0-0.4) X10*3/uL Baso # (Auto) 0.0 (0.0-0.2) X10*3/uL Abs Immat Gran (auto) 0.02 (0.00-0.03) X10*3/uL Absolute Neuts (auto) 1.6 L (2.0-8.3) X10*3/uL Absolute Nucleated RBC 0.000 (0.0-0.012) X10*3/uL Nucleated RBC % (auto) 0.0 (0.0-0.2) /100WBC Sodium (135-145) mmol/L Potassium (3.3-5.1) mmol/L Chloride (96-108) mmol/L Carbon Dioxide (22-29) mmol/L Anion Gap (12-20) BUN (9-16) mg/dL Creatinine (0.5-1.4) mg/dL Estim Creat Clear Calc Estimated GFR Random Glucose (60-115) mg/dL Lactic Acid 4.5 H* (0.5-2.0) mmol/L Lactic Acid Fup @ 2Hr (0.5-2.0) mmol/L Calcium (8.4-10.2) mg/dL Magnesium (1.6-2.6) mg/dL Total Bilirubin (0.0-1.0) mg/dL Direct Bilirubin (0.0-0.5) mg/dL AST (5-37) U/L ALT (0-40) U/L Alkaline Phosphatase (39-117) U/L Total Protein (6.5-8.0) g/dL Albumin (3.5-5.0) g/dL Urine Color Urine Appearance Urine pH (5.0-8.0) Ur Specific [place] (1.005-1.025) Urine Protein (NEG-TRACE) MG/DL Urine Glucose (UA) (NEG) MG/DL Urine Ketones (NEG) MG/DL Urine Blood (NEG) Urine Nitrite (NEG) Ur Leukocyte Esterase (NEG) Urine RBC (0) /HPF Urine WBC (0-4) /HPF Ur Squamous Epith Cells /LPF Urine Bacteria /LPF Urine Opiates Screen (Not Detect) Urine Fentanyl Screen (Not Detect) Ur Barbiturates Screen (Not Detect) Ur Phencyclidine Scrn (Not Detect) Ur Amphetamines Screen (Not Detect) U Benzodiazepines Scrn (Not Detect) Urine Cocaine Screen (Not Detect) U Marijuana (THC) Screen (Not Detect) Ethyl Alcohol 144 mg/dL 08/11/21 08/11/21 08/11/21 Range/Units 14:46 15:52 15:52 WBC (4.8-10.8) X10*3/uL RBC (4.60-5.80) X10*6/uL Hgb (14.0-18.0) g/dl Hct (42-52) % MCV (80-98) fL MCH (27.0-33.0) pg MCHC (31.0-36.0) g/dl RDW (11.0-16.0) % Plt Count (160-400) X10*3/uL MPV (9.4-12.4) fL Immature Gran % (Auto) (0.0-0.4) % Neut % (Auto) (45-73) % Lymph % (Auto) (20-40) % [place] % (Auto) (2-11) % Eos % (Auto) (0-4) % Baso % (Auto) (0-2) % Lymph # (Auto) (1.2-4.9) X10*3/uL [place] # (Auto) (0.1-1.2) X10*3/uL Eos # (Auto) (0.0-0.4) X10*3/uL Baso # (Auto) (0.0-0.2) X10*3/uL Abs Immat Gran (auto) (0.00-0.03) X10*3/uL Absolute Neuts (auto) (2.0-8.3) X10*3/uL Absolute Nucleated RBC (0.0-0.012) X10*3/uL Nucleated RBC % (auto) (0.0-0.2) /100WBC Sodium 143 (135-145) mmol/L Potassium 4.0 (3.3-5.1) mmol/L Chloride 105 (96-108) mmol/L Carbon Dioxide 26 (22-29) mmol/L Anion Gap 16 (12-20) BUN 4 L (9-16) mg/dL Creatinine 0.78 (0.5-1.4) mg/dL Estim Creat Clear Calc 114.6 Estimated GFR > 60 Random Glucose 113 (60-115) mg/dL Lactic Acid (0.5-2.0) mmol/L Lactic Acid Fup @ 2Hr (0.5-2.0) mmol/L Calcium 8.2 L (8.4-10.2) mg/dL Magnesium 1.5 L (1.6-2.6) mg/dL Total Bilirubin 0.6 (0.0-1.0) mg/dL Direct Bilirubin 0.3 (0.0-0.5) mg/dL AST 254 H (5-37) U/L ALT 68 H (0-40) U/L Alkaline Phosphatase 166 H (39-117) U/L Total Protein 5.5 L (6.5-8.0) g/dL Albumin 3.1 L (3.5-5.0) g/dL Urine Color YELLOW Urine Appearance CLEAR Urine pH 6.0 (5.0-8.0) Ur Specific [place] 1.025 (1.005-1.025) Urine Protein NEG (NEG-TRACE) MG/DL Urine Glucose (UA) NEG (NEG) MG/DL Urine Ketones 15 (NEG) MG/DL Urine Blood NEG (NEG) Urine Nitrite NEG (NEG) Ur Leukocyte Esterase 1+ H (NEG) Urine RBC 0 (0) /HPF Urine WBC 1-4 (0-4) /HPF Ur Squamous Epith Cells 1+ /LPF Urine Bacteria 1+ /LPF Urine Opiates Screen Not Detected (Not Detect) Urine Fentanyl Screen Not Detected (Not Detect) Ur Barbiturates Screen Not Detected (Not Detect) Ur Phencyclidine Scrn Not Detected (Not Detect) Ur Amphetamines Screen Not Detected (Not Detect) U Benzodiazepines Scrn Not Detected (Not Detect) Urine Cocaine Screen Not Detected (Not Detect) U Marijuana (THC) Screen POSITIVE H (Not Detect) Ethyl Alcohol mg/dL 05/09/21 Range/Units 17:06 WBC (4.8-10.8) X10*3/uL RBC (4.60-5.80) X10*6/uL Hgb (14.0-18.0) g/dl Hct (42-52) % MCV (80-98) fL MCH (27.0-33.0) pg MCHC (31.0-36.0) g/dl RDW (11.0-16.0) % Plt Count (160-400) X10*3/uL MPV (9.4-12.4) fL Immature Gran % (Auto) (0.0-0.4) % Neut % (Auto) (45-73) % Lymph % (Auto) (20-40) % [place] % (Auto) (2-11) % Eos % (Auto) (0-4) % Baso % (Auto) (0-2) % Lymph # (Auto) (1.2-4.9) X10*3/uL [place] # (Auto) (0.1-1.2) X10*3/uL Eos # (Auto) (0.0-0.4) X10*3/uL Baso # (Auto) (0.0-0.2) X10*3/uL Abs Immat Gran (auto) (0.00-0.03) X10*3/uL Absolute Neuts (auto) (2.0-8.3) X10*3/uL Absolute Nucleated RBC (0.0-0.012) X10*3/uL Nucleated RBC % (auto) (0.0-0.2) /100WBC Sodium (135-145) mmol/L Potassium (3.3-5.1) mmol/L Chloride (96-108) mmol/L Carbon Dioxide (22-29) mmol/L Anion Gap (12-20) BUN (9-16) mg/dL Creatinine (0.5-1.4) mg/dL Estim Creat Clear Calc Estimated GFR Random Glucose (60-115) mg/dL Lactic Acid (0.5-2.0) mmol/L Lactic Acid Fup @ 2Hr 3.4 H* (0.5-2.0) mmol/L Calcium (8.4-10.2) mg/dL Magnesium (1.6-2.6) mg/dL Total Bilirubin (0.0-1.0) mg/dL Direct Bilirubin (0.0-0.5) mg/dL AST (5-37) U/L ALT (0-40) U/L Alkaline Phosphatase (39-117) U/L Total Protein (6.5-8.0) g/dL Albumin (3.5-5.0) g/dL Urine Color Urine Appearance Urine pH (5.0-8.0) Ur Specific [place] (1.005-1.025) Urine Protein (NEG-TRACE) MG/DL Urine Glucose (UA) (NEG) MG/DL Urine Ketones (NEG) MG/DL Urine Blood (NEG) Urine Nitrite (NEG) Ur Leukocyte Esterase (NEG) Urine RBC (0) /HPF Urine WBC (0-4) /HPF Ur Squamous Epith Cells /LPF Urine Bacteria /LPF Urine Opiates Screen (Not Detect) Urine Fentanyl Screen (Not Detect) Ur Barbiturates Screen (Not Detect) Ur Phencyclidine Scrn (Not Detect) Ur Amphetamines Screen (Not Detect) U Benzodiazepines Scrn (Not Detect) Urine Cocaine Screen (Not Detect) U Marijuana (THC) Screen (Not Detect) Ethyl Alcohol mg/dL Discharge Plan Discharge Clinical Impression: Generalized seizure Patient Disposition: Home, Self-Care Instructions: Alcohol Use Disorder (ED), Generalized Tonic Clonic Seizures (ED) Additional Instructions: Recommend detox from alcohol. You were given your daily dose of Keppra while in the ER today. Start taking Keppra as prescribed tomorrow morning. Follow up with your doctor ANIYA. If you develop new or worsening symptoms call 911 or come back to the ER for further evaluation. Prescriptions: New levetiracetam [Keppra] 1,000 mg tablet 1,000 mg PO BID Qty: 60 RF: 1 No Action levetiracetam [Keppra] 1,000 mg tablet 1,000 mg PO BID Qty: 60 RF: 0 cefuroxime axetil 500 mg tablet 500 mg PO BID Qty: 14 RF: 0
[2021-05-09 14:43] VITALS: BP 155/97; PULSE 86; RESP 16; TEMP 37.1; O2SAT 99
[2021-05-09] MEDS: levETIRAcetam 1,000 MG TABLET 1000 MG PO ×2 (14:50→16:50)
[2021-05-09 14:51] LABS: MANUAL DIFF FLAG NO
[2021-05-09 14:52] LABS: Basophils Percent Auto 1.1 % (0-2); Eosinophils Absolute Auto 0.1 X10*3/uL (0.0-0.4); Eosinophils Percent Auto 2.7 % (0-4); Hematocrit 35.9 % (42-52); Hemoglobin 11.9 g/dl (14.0-18.0); Imm Gran Abs Auto 0.02 X10*3/uL (0.00-0.03); Imm Gran Pct Auto 0.5 % (0.0-0.4); Lymphocytes Absolute Auto 1.5 X10*3/uL (1.2-4.9); Lymphocytes Percent Auto 41.3 % (20-40); Mean Corpuscular HGB Conc 33.1 g/dl (31.0-36.0); Mean Corpuscular Hemoglobin 32.6 pg (27.0-33.0); Mean Corpuscular Volume 98.4 fL (80-98); Mean Platelet Volume 9.4 fL (9.4-12.4); Monocytes Absolute Auto 0.4 X10*3/uL (0.1-1.2); Monocytes Percent Auto 10.7 % (2-11); Neutrophils Absolute Auto 1.6 X10*3/uL (2.0-8.3); Neutrophils Percent Auto 43.7 % (45-73); Platelet Count 112 X10*3/uL (160-400); Red Blood Count 3.65 X10*6/uL (4.60-5.80); Red Cell Distribution Width 19.9 % (11.0-16.0); White Blood Count 3.7 X10*3/uL (4.8-10.8)
[2021-05-09 15:13] LABS: Ethanol 144 mg/dL
[2021-05-09 15:21] LABS: Alanine Aminotransferase 68 U/L (0-40); Albumin Level 3.1 g/dL (3.5-5.0); Alkaline Phosphatase 166 U/L (39-117); Anion Gap 16 (12-20); Aspartate Amino Transferase 254 U/L (5-37); Bilirubin Direct 0.3 mg/dL (0.0-0.5); Bilirubin Total 0.6 mg/dL (0.0-1.0); Blood Urea Nitrogen 4 mg/dL (9-16); Calcium 8.2 mg/dL (8.4-10.2); Carbon Dioxide 26 mmol/L (22-29); Chloride 105 mmol/L (96-108); Creatinine Clr Calc Pharmacy 114.6; Estimated Glomerular Filt Rate > 60; Glucose Random 113 mg/dL (60-115); Magnesium 1.5 mg/dL (1.6-2.6); Sodium 143 mmol/L (135-145); Total Protein 5.5 g/dL (6.5-8.0)
[2021-05-09 15:24] LABS: Lactic Acid 4.5 mmol/L (0.5-2.0)
[2021-05-09] MEDS: Magnesium Oxide 400 MG TABLET 800 MG PO (15:48)
[2021-05-09] MEDS: 0.9 % Sodium Chloride 1,000 ML 999 ML IVCONT (15:48)
[2021-05-09 16:03] VITALS: BP 154/97; PULSE 80; RESP 18; TEMP 36.7; O2SAT 98
[2021-05-09 16:06] LABS: Appearance Urine CLEAR; Color Urine YELLOW; Glucose Urine UA NEG (NEG); Leukocyte Esterase Urine 1+ (NEG); Nitrite Urine NEG (NEG); Specific Gravity - Urine 1.025 (1.005-1.025); UACC Culture Trigger YES; Urine Blood NEG (NEG); Urine Ketones 15 MG/DL (NEG); Urine Protein NEG (NEG-TRACE)
[2021-05-09 16:15] LABS: Bacteria Urine 1+ /LPF; RBC Urine 0 /HPF (0); Squamous Epithelial Cell Urine 1+ /LPF
[2021-05-09 16:38] LABS: Amphetamine Screen Urine Not Detected (Not Detect); Barbiturates, Urine Not Detected (Not Detect); Benzodiazepines Screen Urine Not Detected (Not Detect); Cannabinoid Screen Urine POSITIVE (Not Detect); Cocaine Screen Urine Not Detected (Not Detect); Fentanyl, urine Not Detected (Not Detect); Opiate Screen Urine Not Detected (Not Detect); Phencyclidine Screen Urine Not Detected (Not Detect)
[2021-05-09 16:49] LABS: Reflex Lactate? Lactic Acid Added
[2021-05-09 17:32] LABS: ~Lactic Acid-LAB USE ONLY 3.4 mmol/L (0.5-2.0)
[2021-05-09 19:09] LABS: Reflex Lactate? 2 Y
== END 2021-05-09 18:25 | disposition home or self-care (01) ==
PROVIDERS: Physician Assistant; Emergency Provider Emergency Medicine
DX: G40.89 Other seizures (principal); F10.20 Alcohol dependence, uncomplicated; Y90.6 Blood alcohol level of 120-199 mg/100 ml; Z79.899 Other long term (current) drug therapy; Z59.0 Homelessness
CPT/HCPCS: 36415; 80048; 80076; 80307; 81001; 81003; 82077; 83605; 83735; 85025; 96360; 99283; 99284

== ENCOUNTER 2021-05-10 11:54 | Emergency (ER) | payer MEDICAID, SELFPAY ==
[2021-05-10 12:02] VITALS: BP 115/80; PULSE 95; TEMP 36.9; O2SAT 94; BMI 23.7
--- NOTE | 2021-05-10 12:17 | ED.GENADULT ---
HPI - General Adult General Chief complaint: ETOH/Substance Use <NishaJAMES WhiteP- - Last Filed: 05/10/21 18:44> Stated complaint: etoh <Nisha Damaso Apolinar, CLINICAL PROGRAM CONSULTANT- - Last Filed: 05/10/21 18:44> Time Seen by Provider: 05/10/21 12:17 <[facility] - Last Filed: 05/10/21 18:44> History of Present Illness HPI narrative: 56-year-old homeless male with past medical history of seizures on Keppra, alcohol abuse and dependence presents to emergency room via EMS for questioning seizure activity. Patient denies having seizures today. Reports that he drank 2 beers and to nap bottles of alcohol. Patient reports that he is suicidal. Wants to kill himself with a gun, however patient does not own a gun. Patient was here yesterday and worked out for for seizure was sent home with script for Keppra. Patient reports that he is tired of being homeless and having no resources. He is depressed and wants to speak to crisis. <[facility]JAMES White[facility] - Last Filed: 05/10/21 18:44> Related Data Home medications: Home Medications Medication Instructions Recorded Confirmed levetiracetam 1,000 mg tablet 1 tab PO BID 05/10/21 05/10/21 <Nishadonald Jiang [facility] - Last Filed: 05/10/21 18:44> Allergies/adverse reactions: Allergies Allergy/AdvReac Type Severity Reaction Status Date / Time aspirin [ASPIRIN] Allergy Unknown STOMACH Verified 05/07/21 20:30 UPSET ibuprofen [IBUPROFEN] Allergy Unknown STOMACH Verified 05/07/21 20:30 UPSET <[facility]AMES [facility] - Last Filed: 05/10/21 18:44> Review of Systems Review of Systems: Constitutional : No Fever, No Chills, No Night Sweats, No Fatigue, No Malaise ENT/Mouth : No Hearing loss, No Ear Pain, No Nasal Congestion, No Sinus Pain, No Hoarseness, No sore throat, No Rhinorrhea, No Swallowing Difficulty Eyes: No Eye Pain, No Swelling, No Redness, No Foreign Body, No Discharge, No Vision Changes Cardiovascular : No Chest Pain, No SOB, No Dyspnea on Exertion, No Orthopnea, No Edema, No Palpitations Respiratory : No Cough, No Sputum, No Wheezing, No Smoke Exposure, No Dyspnea Gastrointestinal : No Nausea, No Vomiting, No Diarrhea, No Constipation, No abdominal Pain, No Hematochezia, No Melena Genitourinary : no irregular bleeding, No Dysuria, No Urinary Frequency, No Hematuria, No Urinary Incontinence, No Urgency, No Flank Pain, No Urinary Flow Changes, No Hesitancy Musculoskeletal : No joint pain, No Myalgias, No Joint Swelling Skin : No Skin Lesions, No rash Neuro : No Weakness, No Numbness, No Paresthesias, No Loss of Consciousness, No Dizziness, No Headache, history of seizure disorder on Kera Psych : No Anxiety/Panic, Depression, SI/HI, No Social Issues, Heme/Lymph: No Bruising, No Bleeding,No Lymphadenopathy Endocrine : No Polyuria, No Polydipsia, No Temperature Intolerance <LAZARO Coats- - Last Filed: 05/10/21 18:44> Yes all other systems are reviewed and are negative <LAZARO Coats-BC - Last Filed: 05/10/21 18:44> [facility] Past Medical History Medical History: Medical History Alcohol abuse Back pain Seizures <LAZARO Coats-BC - Last Filed: 05/10/21 18:44> Social History Social History: Social History Alcohol intake: current Alcohol intake frequency: 3 or more drinks per day Alcohol type: hard liquor Patient Tobacco Use Status: Never used Tobacco Substance Use Type: Marijuana Advance Directives: No Advance Directives Information Provided: No <LAZARO Coats-BC - Last Filed: 05/10/21 18:44> Physical Exam Vital Signs: Vital Signs: Last Vital Signs Temp 98.2 F 05/11/21 02:26 Pulse 88 05/11/21 02:26 Resp 16 05/11/21 02:26 BP 156/105 H 05/11/21 02:26 Pulse Ox 97 05/11/21 02:26 Body Mass Index 23.7 <Nisha Jiang CLINICAL PROGRAM CONSULTANT-BC - Last Filed: 05/10/21 18:44> Vital Signs: Last Vital Signs Temp 98.2 F 05/11/21 02:26 Pulse 88 05/11/21 02:26 Resp 16 05/11/21 02:26 BP 156/105 H 05/11/21 02:26 Pulse Ox 97 05/11/21 02:26 Body Mass Index 23.7 <PETEY Henao - Last Filed: 05/11/21 02:35> Vital Signs: Last Vital Signs Temp 98.2 F 05/11/21 02:26 Pulse 88 05/11/21 02:26 Resp 16 05/11/21 02:26 BP 156/105 H 05/11/21 02:26 Pulse Ox 97 05/11/21 02:26 Body Mass Index 23.7 <Bonnie Leavitt DO - Last Filed: 05/11/21 06:44> Vital Signs: Last Vital Signs Temp 98.2 F 05/11/21 02:26 Pulse 88 05/11/21 02:26 Resp 16 05/11/21 02:26 BP 156/105 H 05/11/21 02:26 Pulse Ox 97 05/11/21 02:26 Body Mass Index 23.7 <PETEY Wilcox - Last Filed: 05/11/21 11:20> Const: General: cooperative <Nisha Jiang CLINICAL PROGRAM CONSULTANT-BC - Last Filed: 05/10/21 18:44> Nutritional Appearance: average body habitus <Nisha Jiang CLINICAL PROGRAM CONSULTANT-BC - Last Filed: 05/10/21 18:44> Orientation/consciousness: patient oriented x3 <Nisha Jiang CLINICAL PROGRAM CONSULTANT-BC - Last Filed: 05/10/21 18:44> Limitations: no limitations <Nisha Jiang CLINICAL PROGRAM CONSULTANT-BC - Last Filed: 05/10/21 18:44> HENMT: Head: Yes normal to inspection <Nisha Jiang CLINICAL PROGRAM CONSULTANT-BC - Last Filed: 05/10/21 18:44> Ears: hearing grossly normal bilaterally <Nisha Jiang CLINICAL PROGRAM CONSULTANT-BC - Last Filed: 05/10/21 18:44> General nose exam: Normal external nose present <Nisha Jiang CLINICAL PROGRAM CONSULTANT-BC - Last Filed: 05/10/21 18:44> Face and sinus: Yes normal facial exam <Nisha Sinclairtobin CLINICAL PROGRAM CONSULTANT-BC - Last Filed: 05/10/21 18:44> Mouth: Normal oral and palatal mucosa present <Nisha D Apolinar, CLINICAL PROGRAM CONSULTANT-BC - Last Filed: 05/10/21 18:44> Throat: Yes posterior oropharynx normal <Nishamagaly Sinclairtobin CLINICAL PROGRAM CONSULTANT-BC - Last Filed: 05/10/21 18:44> Eyes: General: appearance normal, both eyes and all related structures <Nisha Damaso Sinclairtobin CLINICAL PROGRAM CONSULTANT-BC - Last Filed: 05/10/21 18:44> Neck: Neck: Yes normal visual inspection, Yes full ROM, Yes no lymphadenopathy, Yes trachea midline and Yes supple <Nisha Jiang CLINICAL PROGRAM CONSULTANT-BC - Last Filed: 05/10/21 18:44> Chest: Chest palpation & inspection: normal inspection of the chest <Nisha Sinclairtobin CLINICAL PROGRAM CONSULTANT-BC - Last Filed: 05/10/21 18:44> Resp: Effort & Inspection: normal respiratory effort and able to speak in complete sentences <Nisha Sinclairtobin CLINICAL PROGRAM CONSULTANT-BC - Last Filed: 05/10/21 18:44> Auscultation: clear to auscultation bilaterally <Nisha Sinclairtobin CLINICAL PROGRAM CONSULTANT-BC - Last Filed: 05/10/21 18:44> Cardio: Rate: regular rate <Nisha Damaso Sinclairtobin CLINICAL PROGRAM CONSULTANT-BC - Last Filed: 05/10/21 18:44> Rhythm: regular rhythm <Nisah Damaso Sinclairtobin CLINICAL PROGRAM CONSULTANT-BC - Last Filed: 05/10/21 18:44> Heart sounds: S1 normal heart sound present, S2 normal heart sound present, no gallops, no murmurs and no rubs <Nisha Damaso Jiang CLINICAL PROGRAM CONSULTANT-BC - Last Filed: 05/10/21 18:44> Peripheral pulses: Peripheral pulses 2+ throughout <Nisha D Apolinar, CLINICAL PROGRAM CONSULTANT-BC - Last Filed: 05/10/21 18:44> GI: Inspection: Yes normal to inspection and No distended <Nisha D Apolinar CLINICAL PROGRAM CONSULTANT-BC - Last Filed: 05/10/21 18:44> Palpation (GI): No hepatosplenomegaly present and No Rebound tenderness present <Nishamagaly Jiang CLINICAL PROGRAM CONSULTANT-BC - Last Filed: 05/10/21 18:44> Percussion: Yes normal to percussion <Nisha Jiang CLINICAL PROGRAM CONSULTANT-BC - Last Filed: 05/10/21 18:44> Auscultation: normal bowel sounds <Nishamagaly Jiang CLINICAL PROGRAM CONSULTANT-BC - Last Filed: 05/10/21 18:44> Back/Spine/Pelvis: Cervical Spine: cervical ROM normal and No cervical muscular tenderness <Nisha Jiang CLINICAL PROGRAM CONSULTANT-BC - Last Filed: 05/10/21 18:44> Thoracic/Lumbar Spine: thoracic and lumbar spine normal to inspection <Nisha Jiang CLINICAL PROGRAM CONSULTANT-BC - Last Filed: 05/10/21 18:44> Skin: General skin exam: elasticity normal and turgor normal <Nisha Jiang CLINICAL PROGRAM CONSULTANT-BC - Last Filed: 05/10/21 18:44> Neuro: General: patient oriented x3 <Nisha Jiang CLINICAL PROGRAM CONSULTANT-BC - Last Filed: 05/10/21 18:44> Extrem: General: Yes normal to inspection, Yes full ROM and Yes capillary refill normal <Nisha Jiang CLINICAL PROGRAM CONSULTANT-BC - Last Filed: 05/10/21 18:44> Psych: Appearance: grossly normal <Nisha Jiang CLINICAL PROGRAM CONSULTANT-BC - Last Filed: 05/10/21 18:44> Mental Status: mental status grossly normal <Nisha Jiang, CLINICAL PROGRAM CONSULTANT-BC - Last Filed: 05/10/21 18:44> Speech and movement: Normal speech and movement present <Nishamagaly Jiang CLINICAL PROGRAM CONSULTANT-BC - Last Filed: 05/10/21 18:44> Affect: normal affect <Nishamagaly Jiang, CLINICAL PROGRAM CONSULTANT-BC - Last Filed: 05/10/21 18:44> Attitude: cooperative <Nisha Damaso Jiang, CLINICAL PROGRAM CONSULTANT-BC - Last Filed: 05/10/21 18:44> Thought process: Normal thought process present <Nisha D Apolinar, CLINICAL PROGRAM CONSULTANT-BC - Last Filed: 05/10/21 18:44> Insight: Good insight present (Psych) <Nisha ALLA Scott - Last Filed: 05/10/21 18:44> Course Course Course Narrative: 56-year-old male, homeless is here for questionable seizure. Patient reports that he did not have a seizure, he is requesting to speak to crisis. He reports that he is homeless, depressed and wants to hurt himself. Will check his alcohol level, drug screen, Tylenol an aspirin of levels and will have him talk to crisis. <ALLA Coats - Last Filed: 05/10/21 18:44> Reevaluation(s) Reevaluation #1: Patient's alcohol level 245, urine positive for marijuana, negative for salicylates and Tylenol. Will order [facility] for him, patient reports SI no HI. <ALLA Coats - Last Filed: 05/10/21 18:44> Reevaluation #2: I will order him dose of Keppra for tonight. <ALLA Coats - Last Filed: 05/10/21 18:44> Time: 02:34 <PETEY Henao - Last Filed: 05/11/21 02:35> Reevaluation #3: Patient was evaluated by [facility] denies SI/HI at present, plan is for patient to go to the living room in the morning, N will cab patient there. Patient denies wanting detox <PETEY Henao - Last Filed: 05/11/21 02:35> Medical Decision Making Lab Data Labs: Lab Results 05/10/21 05/10/21 05/10/21 Range/Units 12:51 12:51 21:17 Salicylates < 5.0 L (15-30) mg/dL Urine Opiates Screen (Not Detect) Urine Fentanyl Screen (Not Detect) Acetaminophen < 1 (<30) mcg/mL Ur Barbiturates Screen (Not Detect) Ur Phencyclidine Scrn (Not Detect) Ur Amphetamines Screen (Not Detect) U Benzodiazepines Scrn (Not Detect) Urine Cocaine Screen (Not Detect) U Marijuana (THC) Screen (Not Detect) Ethyl Alcohol 245 mg/dL COVID-19 (FRANSICO) Negative (Negative) COVID-19 Clin Com See Note 05/10/21 Range/Units 23:34 Salicylates (15-30) mg/dL Urine Opiates Screen Not Detected (Not Detect) Urine Fentanyl Screen Not Detected (Not Detect) Acetaminophen (<30) mcg/mL Ur Barbiturates Screen Not Detected (Not Detect) Ur Phencyclidine Scrn Not Detected (Not Detect) Ur Amphetamines Screen Not Detected (Not Detect) U Benzodiazepines Scrn Not Detected (Not Detect) Urine Cocaine Screen Not Detected (Not Detect) U Marijuana (THC) Screen POSITIVE H (Not Detect) Ethyl Alcohol mg/dL COVID-19 ([facility]ANSICO) (Negative) COVID-19 Clin Com <JAMES CoatsP-BC - Last Filed: 05/10/21 18:44> Lab Results 05/10/21 05/10/21 05/10/21 Range/Units 12:51 12:51 21:17 Salicylates < 5.0 L (15-30) mg/dL Urine Opiates Screen (Not Detect) Urine Fentanyl Screen (Not Detect) Acetaminophen < 1 (<30) mcg/mL Ur Barbiturates Screen (Not Detect) Ur Phencyclidine Scrn (Not Detect) Ur Amphetamines Screen (Not Detect) U Benzodiazepines Scrn (Not Detect) Urine Cocaine Screen (Not Detect) U Marijuana (THC) Screen (Not Detect) Ethyl Alcohol 245 mg/dL COVID-19 (FRANSICO) Negative (Negative) COVID-19 Clin Com See Note 05/10/21 Range/Units 23:34 Salicylates (15-30) mg/dL Urine Opiates Screen Not Detected (Not Detect) Urine Fentanyl Screen Not Detected (Not Detect) Acetaminophen (<30) mcg/mL Ur Barbiturates Screen Not Detected (Not Detect) Ur Phencyclidine Scrn Not Detected (Not Detect) Ur Amphetamines Screen Not Detected (Not Detect) U Benzodiazepines Scrn Not Detected (Not Detect) Urine Cocaine Screen Not Detected (Not Detect) U Marijuana (THC) Screen POSITIVE H (Not Detect) Ethyl Alcohol mg/dL COVID-19 ([facility]ANSICO) (Negative) COVID-19 Clin Com <PETEY Henao - Last Filed: 05/11/21 02:35> Lab Results 05/10/21 05/10/21 05/10/21 Range/Units 12:51 12:51 21:17 Salicylates < 5.0 L (15-30) mg/dL Urine Opiates Screen (Not Detect) Urine Fentanyl Screen (Not Detect) Acetaminophen < 1 (<30) mcg/mL Ur Barbiturates Screen (Not Detect) Ur Phencyclidine Scrn (Not Detect) Ur Amphetamines Screen (Not Detect) U Benzodiazepines Scrn (Not Detect) Urine Cocaine Screen (Not Detect) U Marijuana (THC) Screen (Not Detect) Ethyl Alcohol 245 mg/dL COVID-19 (FRANSICO) Negative (Negative) COVID-19 Clin Com See Note 05/10/21 Range/Units 23:34 Salicylates (15-30) mg/dL Urine Opiates Screen Not Detected (Not Detect) Urine Fentanyl Screen Not Detected (Not Detect) Acetaminophen (<30) mcg/mL Ur Barbiturates Screen Not Detected (Not Detect) Ur Phencyclidine Scrn Not Detected (Not Detect) Ur Amphetamines Screen Not Detected (Not Detect) U Benzodiazepines Scrn Not Detected (Not Detect) Urine Cocaine Screen Not Detected (Not Detect) U Marijuana (THC) Screen POSITIVE H (Not Detect) Ethyl Alcohol mg/dL COVID-19 (FRANSICO) (Negative) COVID-19 Clin Com <Bonnie Leavitt, DO - Last Filed: 05/11/21 06:44> Lab Results 05/10/21 05/10/21 05/10/21 Range/Units 12:51 12:51 21:17 Salicylates < 5.0 L (15-30) mg/dL Urine Opiates Screen (Not Detect) Urine Fentanyl Screen (Not Detect) Acetaminophen < 1 (<30) mcg/mL Ur Barbiturates Screen (Not Detect) Ur Phencyclidine Scrn (Not Detect) Ur Amphetamines Screen (Not Detect) U Benzodiazepines Scrn (Not Detect) Urine Cocaine Screen (Not Detect) U Marijuana (THC) Screen (Not Detect) Ethyl Alcohol 245 mg/dL COVID-19 (FRANSICO) Negative (Negative) COVID-19 Clin Com See Note 05/10/21 Range/Units 23:34 Salicylates (15-30) mg/dL Urine Opiates Screen Not Detected (Not Detect) Urine Fentanyl Screen Not Detected (Not Detect) Acetaminophen (<30) mcg/mL Ur Barbiturates Screen Not Detected (Not Detect) Ur Phencyclidine Scrn Not Detected (Not Detect) Ur Amphetamines Screen Not Detected (Not Detect) U Benzodiazepines Scrn Not Detected (Not Detect) Urine Cocaine Screen Not Detected (Not Detect) U Marijuana (THC) Screen POSITIVE H (Not Detect) Ethyl Alcohol mg/dL COVID-19 (FRANSICO) (Negative) COVID-19 Clin Com <PETEY Wilcox - Last Filed: 05/11/21 11:20> Discharge Plan Discharge Clinical Impression: Suicide ideation, Active substance abuse <ALLA Coats - Last Filed: 05/10/21 18:44> Patient Disposition: Home, Self-Care <ALLA Coats - Last Filed: 05/10/21 18:44> Instructions: Polysubstance Abuse (ED) <ALLA Coats - Last Filed: 05/10/21 18:44> Additional Instructions: return to ED for any worsening symptoms or concerns please go to the living room <ALLA Coats - Last Filed: 05/10/21 18:44> Prescriptions: No Action levetiracetam 1,000 mg tablet 1 tab PO BID RF: 0 <ALLA Coats - Last Filed: 05/10/21 18:44> Interventions: ED Discharge Assessment Last Done: 05/11/21 06:46 <ALLA Coats - Last Filed: 05/10/21 18:44> Discharge Date/Time: 05/11/21 07:15 <ALLA Coats - Last Filed: 05/10/21 18:44>
[2021-05-10 13:27] LABS: Ethanol 245 mg/dL
[2021-05-10 13:30] LABS: Acetaminophen LAB < 1 mcg/mL (<30); Salicylate < 5.0 mg/dL (15-30)
[2021-05-10 18:54] VITALS: BP 176/107; PULSE 76; RESP 18; TEMP 36.6; O2SAT 96
[2021-05-10 20:40] VITALS: BP 161/100; PULSE 84; RESP 16; O2SAT 98
[2021-05-10] MEDS: levETIRAcetam 1,000 MG TABLET 1000 MG PO (20:40)
[2021-05-10 21:40] LABS: COVID-19 Test Negative (Negative)
[2021-05-10 22:11] VITALS: BP 164/100; PULSE 82; RESP 16; TEMP 37; O2SAT 97
[2021-05-10] MEDS: LORazepam 1 MG TABLET 2 MG PO (23:44)
[2021-05-11 00:36] LABS: Amphetamine Screen Urine Not Detected (Not Detect); Barbiturates, Urine Not Detected (Not Detect); Benzodiazepines Screen Urine Not Detected (Not Detect); Cannabinoid Screen Urine POSITIVE (Not Detect); Cocaine Screen Urine Not Detected (Not Detect); Fentanyl, urine Not Detected (Not Detect); Opiate Screen Urine Not Detected (Not Detect); Phencyclidine Screen Urine Not Detected (Not Detect)
[2021-05-11 02:26] VITALS: BP 156/105; PULSE 88; RESP 16; TEMP 36.8; O2SAT 97
--- NOTE | 2021-05-11 03:09 | PC.NURSE ---
Patient just got seen by MISAEL, disposition, d/c in the morning to living room, N will arrange ride in the morning, patient will be picked up at 0730, provider and patient aware, patient refused to go to detox and denied suicidality at this time, ativan 2 mg administered as ordered, will continue to monitor.
--- NOTE | 2021-05-11 06:02 | PC.NURSE ---
Patient slept through the night, no distress observed/reported, behavior appropriate, med compliant, disposition is d/c to living room at 0700, VSS, asymptomatic of withdrawal, will continue to monitor.
== END 2021-05-11 07:15 | disposition home or self-care (01) ==
PROVIDERS: Emergency Medicine Emergency Medical Services; Nurse Practitioner Family; Emergency Provider Emergency Medicine
DX: R45.851 Suicidal ideations (principal); F19.10 Other psychoactive substance abuse, uncomplicated; F10.20 Alcohol dependence, uncomplicated; Y90.8 Blood alcohol level of 240 mg/100 ml or more; Z79.899 Other long term (current) drug therapy; F12.90 Cannabis use, unspecified, uncomplicated; Z20.822 Contact with and (suspected) exposure to COVID-19
CPT/HCPCS: 36415; 80143; 80179; 80307; 82077; 87635; 99285

== ENCOUNTER 2021-05-11 17:53 | Emergency (ER) | payer MEDICAID, SELFPAY ==
--- NOTE | 2021-05-11 18:06 | ECG_ITS ---
Test Reason : ETOH Blood Pressure : / mmHG Vent. Rate : 082 BPM Atrial Rate : 082 BPM P-R Int : 144 ms QRS Dur : 088 ms QT Int : 408 ms P-R-T Axes : 059 043 044 degrees QTc Int : 476 ms Normal sinus rhythm Normal ECG When compared with ECG of 11-JAN-2021 21:37, No significant change was found Referred By: Jyoti Barron Electronically Signed By:RADHA GONZALEZ
--- NOTE | 2021-05-11 18:08 | ED_ITS ---
HPI - Alcohol General Chief Complaint: ETOH/Substance Use Stated Complaint: ?etoh Time Seen by Provider: 05/11/21 17:58 Source: EMS Mode of arrival: EMS Limitations: no limitations History of Present Illness HPI narrative: 56-year-old male well known to this emergency department after being found on the ground after admitting to drinking many drinks. Patient has a history of seizures and is supposed to be taking Keppra 1000 mg twice a day. He also has a history of alcohol abuse, depression, anxiety but has not been taking any of his medications and he is currently homeless. He drinks alcohol daily. He denies any known new injury or trauma. Of note, the patient had a urine culture from yesterday that showed greater than 100,000 E coli pansensitive. Patient was attempted to be contacted but has no phone or address. He denies any urinary symptoms. No fevers, chills, abdominal pain or vomiting Admits to depression but denies suicidal thoughts Related Data Home Medications Medication Instructions Recorded Confirmed levetiracetam 1,000 mg tablet 1 tab PO BID 05/10/21 05/10/21 Previous Rx's Medication Instructions Recorded cefpodoxime 100 mg tablet 100 mg PO BID #14 tab 05/11/21 Allergies Allergy/AdvReac Type Severity Reaction Status Date / Time aspirin [ASPIRIN] Allergy Unknown STOMACH Verified 05/07/21 20:30 UPSET ibuprofen [IBUPROFEN] Allergy Unknown STOMACH Verified 05/07/21 20:30 UPSET Review of Systems Review of Systems: Yes all other systems are reviewed and are negative Constitutional: Constitutional: Reports no additional constitutional complaints, Denies body ache(s), Denies chills, Denies fever(s), Denies headache(s) and Denies weakness Eyes: Eyes: Reports no additional eye complaints and Denies change in vision ENT: Reports system reviewed and no additional complaints, except as documented, Denies dizziness, Denies headache(s), Denies nasal congestion, Denies nasal discharge and Denies neck pain Cardiovascular: Cardiovascular: Reports no additional cardiovascular complaints, Denies chest pain, Denies leg edema and Denies dyspnea Respiratory: Respiratory: Reports no additional respiratory complaints, Denies cough and Denies dyspnea Gastrointestinal: Gastrointestinal: Reports no additional gastrointestinal complaints, Denies abdominal pain, Denies diarrhea, Denies nausea and Denies vomiting Genitourinary: Genitourinary: Denies urinary incontinence Musculoskeletal: Musculoskeletal: Reports no additional musculoskeletal complaints, Denies back pain, Denies arthralgias, Denies joint swelling, Denies neck pain, Denies numbness and Denies tingling Integumentary/Breasts: Skin/Breast: Reports system reviewed and no additional complaints, except as docu and Denies rash Neurologic: Reports system reviewed and no additional complaints, except as d ocumented, Denies Abnormal speech present, Denies dizziness, Denies headache(s), Denies numbness, Denies tingling and Denies weakness Psychiatric: Psychiatric: Reports anxiety, Reports depression, Denies homicidal ideation and Denies suicidal ideation [facility] Past Medical History Attestation statement: The following information was validated with the patient. Source: old records reviewed and nursing notes reviewed Medical History Alcohol abuse Back pain Seizures Social History Social History Alcohol intake: current Alcohol intake frequency: 3 or more drinks per day Alcohol type: hard liquor Patient Tobacco Use Status: Never used Tobacco Use of substances other than those prescribed or required for medical reasons: Yes Substance Use Type: Marijuana Advance Directives: No Advance Directives Information Provided: Yes Physical Exam Vital Signs: Vital Signs: Last Vital Signs Pulse 94 05/11/21 19:01 BP 104/67 05/11/21 19:01 Pulse Ox 95 05/11/21 19:01 Body Mass Index 25.1 Const: Other: Disheveled, Orientation/consciousness: patient oriented x3 Limitations: no limitations HENMT: Head: Yes normal to inspection Ears: hearing grossly normal bilate rally General nose exam: Normal external nose present Face and sinus: Yes normal facial exam Mouth: Normal oral and palatal mucosa present Throat: Yes posterior oropharynx normal Eyes: General: appearance normal, both eyes and all related structures Pupils: Equal, round and reactive pupils present Neck: Neck: Yes normal visual inspection Chest: Chest palpation & inspection: normal inspection of the chest Resp: Effort & Inspection: normal respiratory effort Auscultation: clear to auscultation bilaterally Cardio: Rate: regular rate Rhythm: regular rhythm Peripheral pulses: Peripheral pulses 2+ throughout GI: Inspection: Yes normal to inspection Palpation (GI): Soft to palpation and nontender Auscultation: normal bowel sounds Back/Spine/Pelvis: Thoracic/Lumbar Spine: thoracic and lumbar spine normal to inspection Skin: General skin exam: no rashes or lesions noted Neuro: General: patient oriented x3, no focal motor deficits and normal sensation to monofilament Cranial nerves: Yes Equal, round and reactive pupils present Cognition (Neuro): normal cognition Speech: No Abnormal speech present Gait exam (Neuro): Normal gait present Motor exam (neuro): 5/5 motor strength present throughout Extrem: General: Yes normal to inspection Course Course Course Narrative: 56-year-old male here with alcohol intoxication. He has been here every day this week for the same. He denies any injury or trauma. No additional substance use. Of note has a urine culture from yesterday that shows greater than 100,000 E coli pansensitive. Patient denies any symptoms. No fevers, chills, urinary symptoms, vomiting or abdominal pain. Will check labs, UA, EKG. Place PIV for NSB and IV antibiotics. Unfortunately the patient is currently homeless. He is complaining of some mild depression but denies any suicidal thoughts. At this time he does not want detox. 2100-labs show mildly elevated lactic acid which is from alcohol use and not from infection. Patient did receive some IV fluids. Will plan for repeat. Normal renal function. No leukocytosis or fever. Alcohol level 186. Will need sober re-eval. Once patient is clinically sober he can be discharged home with oral antibiotics for his UTI. 2124-Sign out to Dr Prabhakar pending above. [facility] - Alcohol Medical Records Attestation: I reviewed the patient's medical records. Lab Data Attestation: I reviewed the patient's lab results. Result diagrams: 05/11/21 18:42 05/11/21 18:42 Labs: Lab Results 05/11/21 05/11/21 05/11/21 Range/Units 18:42 18:42 18:42 WBC 4.6 L (4.8-10.8) X10*3/uL RBC 3.79 L (4.60-5.80) X10*6/uL Hgb 12.4 L (14.0-18.0) g/dl Hct 36.4 L (42-52) % MCV 96.0 (80-98) fL MCH 32.7 (27.0-33.0) pg MCHC 34.1 (31.0-36.0) g/dl RDW 19.7 H (11.0-16.0) % Plt Count 112 L (160-400) X10*3/uL MPV 9.9 (9.4-12.4) fL Immature Gran % (Auto) 0.2 (0.0-0.4) % Neut % (Auto) 49.8 (45-73) % Lymph % (Auto) 35.3 (20-40) % [place] % (Auto) 11.6 H (2-11) % Eos % (Auto) 2.2 (0-4) % Baso % (Auto) 0.9 (0-2) % Lymph # (Auto) 1.6 (1.2-4.9) X10*3/uL [place] # (Auto) 0.5 (0.1-1.2) X10*3/uL Eos # (Auto) 0.1 (0.0-0.4) X10*3/uL Baso # (Auto) 0.0 (0.0-0.2) X10*3/uL Abs Immat Gran (auto) 0.01 (0.00-0.03) X10*3/uL Absolute Neuts (auto) 2.3 (2.0-8.3) X10*3/uL Absolute Nucleated RBC 0.000 (0.0-0.012) X10*3/uL Nucleated RBC % (auto) 0.0 (0.0-0.2) /100WBC PT 10.0 (9.9-13.0) SEC INR 0.9 (0.9-1.1) Sodium 140 (135-145) mmol/L Potassium 3.3 (3.3-5.1) mmol/L Chloride 103 (96-108) mmol/L Carbon Dioxide 20 L (22-29) mmol/L Anion Gap 20 (12-20) BUN 4 L (9-16) mg/dL Creatinine 0.79 (0.5-1.4) mg/dL Estim Creat Clear Calc 113.2 Estimated GFR > 60 Random Glucose 104 (60-115) mg/dL Lactic Acid (0.5-2.0) mmol/L Calcium 8.7 D (8.4-10.2) mg/dL Magnesium 1.6 (1.6-2.6) mg/dL Total Bilirubin 0.8 (0.0-1.0) mg/dL Direct Bilirubin 0.3 (0.0-0.5) mg/dL AST 162 H (5-37) U/L ALT 62 H (0-40) U/L Alkaline Phosphatase 160 H (39-117) U/L Total Protein 5.6 L (6.5-8.0) g/dL Albumin 3.1 L (3.5-5.0) g/dL Ethyl Alcohol mg/dL 05/11/21 05/11/21 Range/Units 18:42 18:43 WBC (4.8-10.8) X10*3/uL RBC (4.60-5.80) X10*6/uL Hgb (14.0-18.0) g/dl Hct (42-52) % MCV (80-98) fL MCH (27.0-33.0) pg MCHC (31.0-36.0) g/dl RDW (11.0-16.0) % Plt Count (160-400) X10*3/uL MPV (9.4-12.4) fL Immature Gran % (Auto) (0.0-0.4) % Neut % (Auto) (45-73) % Lymph % (Auto) (20-40) % [place] % (Auto) (2-11) % Eos % (Auto) (0-4) % Baso % (Auto) (0-2) % Lymph # (Auto) (1.2-4.9) X10*3/uL [place] # (Auto) (0.1-1.2) X10*3/uL Eos # (Auto) (0.0-0.4) X10*3/uL Baso # (Auto) (0.0-0.2) X10*3/uL Abs Immat Gran (auto) (0.00-0.03) X10*3/uL Absolute Neuts (auto) (2.0-8.3) X10*3/uL Absolute Nucleated RBC (0.0-0.012) X10*3/uL Nucleated RBC % (auto) (0.0-0.2) /100WBC PT (9.9-13.0) SEC INR (0.9-1.1) Sodium (135-145) mmol/L Potassium (3.3-5.1) mmol/L Chloride (96-108) mmol/L Carbon Dioxide (22-29) mmol/L Anion Gap (12-20) BUN (9-16) mg/dL Creatinine (0.5-1.4) mg/dL Estim Creat Clear Calc Estimated GFR Random Glucose (60-115) mg/dL Lactic Acid 3.9 H* (0.5-2.0) mmol/L Calcium (8.4-10.2) mg/dL Magnesium (1.6-2.6) mg/dL Total Bilirubin (0.0-1.0) mg/dL Direct Bilirubin (0.0-0.5) mg/dL AST (5-37) U/L ALT (0-40) U/L Alkaline Phosphatase (39-117) U/L Total Protein (6.5-8.0) g/dL Albumin (3.5-5.0) g/dL Ethyl Alcohol 186 mg/dL ECG Data ECG #1: Attestation: I personally reviewed and interpreted this ECG as follows: ECG interpretation date: 05/11/21 ECG interpretation time: 19:43 Interpretation: Normal sinus rhythm with a rate of 82, normal MO, normal QRS, normal QT Discharge Plan Discharge Clinical Impression: Alcoholic intoxication, Acute UTI Patient Disposition: Home, Self-Care Instructions: Urinary Tract Infection in Men (ED), Alcohol Intoxication (ED) Additional Instructions: You were offered detox but you declined You received antibiotics for your UTI. Next dose 05/12 in AM Prescriptions: New cefpodoxime 100 mg tablet 100 mg PO BID Qty: 14 RF: 0 No Action levetiracetam 1,000 mg tablet 1 tab PO BID RF: 0
[2021-05-11] MEDS: levETIRAcetam 1,000 MG TABLET 1000 MG PO (18:44)
[2021-05-11] MEDS: 0.9 % Sodium Chloride 1,000 ML 999 ML IV (18:45)
[2021-05-11 18:50] LABS: MANUAL DIFF FLAG NO
[2021-05-11] MEDS: cefTRIAXone sodium 1 GM in 0.9 % Sodium Chloride 50 ML IV (18:50)
[2021-05-11 18:51] LABS: Basophils Percent Auto 0.9 % (0-2); Eosinophils Absolute Auto 0.1 X10*3/uL (0.0-0.4); Eosinophils Percent Auto 2.2 % (0-4); Hematocrit 36.4 % (42-52); Hemoglobin 12.4 g/dl (14.0-18.0); Imm Gran Abs Auto 0.01 X10*3/uL (0.00-0.03); Imm Gran Pct Auto 0.2 % (0.0-0.4); Lymphocytes Absolute Auto 1.6 X10*3/uL (1.2-4.9); Lymphocytes Percent Auto 35.3 % (20-40); Mean Corpuscular HGB Conc 34.1 g/dl (31.0-36.0); Mean Corpuscular Hemoglobin 32.7 pg (27.0-33.0); Mean Platelet Volume 9.9 fL (9.4-12.4); Monocytes Absolute Auto 0.5 X10*3/uL (0.1-1.2); Monocytes Percent Auto 11.6 % (2-11); Neutrophils Absolute Auto 2.3 X10*3/uL (2.0-8.3); Neutrophils Percent Auto 49.8 % (45-73); Platelet Count 112 X10*3/uL (160-400); Red Blood Count 3.79 X10*6/uL (4.60-5.80); Red Cell Distribution Width 19.7 % (11.0-16.0); White Blood Count 4.6 X10*3/uL (4.8-10.8)
[2021-05-11 18:56] LABS: INTERNATIONAL NORM RATIO 0.9 (0.9-1.1)
[2021-05-11 19:01] VITALS: BP 102/70; BP 104/67; PULSE 104; PULSE 94; O2SAT 95; O2SAT 96; BMI 25.1
[2021-05-11 19:10] LABS: Lactic Acid 3.9 mmol/L (0.5-2.0)
[2021-05-11 19:12] LABS: Ethanol 186 mg/dL
[2021-05-11 19:15] LABS: Alanine Aminotransferase 62 U/L (0-40); Albumin Level 3.1 g/dL (3.5-5.0); Alkaline Phosphatase 160 U/L (39-117); Anion Gap 20 (12-20); Aspartate Amino Transferase 162 U/L (5-37); Bilirubin Direct 0.3 mg/dL (0.0-0.5); Bilirubin Total 0.8 mg/dL (0.0-1.0); Blood Urea Nitrogen 4 mg/dL (9-16); Calcium 8.7 mg/dL (8.4-10.2); Carbon Dioxide 20 mmol/L (22-29); Chloride 103 mmol/L (96-108); Creatinine Clr Calc Pharmacy 113.2; Estimated Glomerular Filt Rate > 60; Glucose Random 104 mg/dL (60-115); Magnesium 1.6 mg/dL (1.6-2.6); Potassium 3.3 mmol/L (3.3-5.1); Sodium 140 mmol/L (135-145); Total Protein 5.6 g/dL (6.5-8.0)
[2021-05-11] MEDS: 0.9 % Sodium Chloride 1,000 ML 999 ML IVCONT (19:17)
[2021-05-11] MEDS: 0.9 % Sodium Chloride 500 ML 999 ML IV (19:18)
[2021-05-11 20:47] LABS: Reflex Lactate? Lactic Acid Added
[2021-05-11 21:38] VITALS: BP 141/86; PULSE 85; O2SAT 97
[2021-05-11 21:39] LABS: ~Lactic Acid-LAB USE ONLY 3.4 mmol/L (0.5-2.0)
[2021-05-11 23:01] LABS: Reflex Lactate? 2 Y
[2021-05-12 00:13] LABS: Glucose Urine UA NEG (NEG); Leukocyte Esterase Urine NEG (NEG); Nitrite Urine NEG (NEG); Specific Gravity - Urine 1.015 (1.005-1.025); Urine Blood NEG (NEG); Urine Ketones 5 MG/DL (NEG); Urine Protein NEG (NEG-TRACE)
[2021-05-12 00:17] LABS: Appearance Urine CLEAR; Color Urine YELLOW
[2021-05-12 02:02] LABS: ~Lactic Acid-LAB USE ONLY 1.2 mmol/L (0.5-2.0)
[2021-05-12 04:57] LABS: Amphetamine Screen Urine Not Detected (Not Detect); Barbiturates, Urine Not Detected (Not Detect); Benzodiazepines Screen Urine Not Detected (Not Detect); Cannabinoid Screen Urine POSITIVE (Not Detect); Cocaine Screen Urine Not Detected (Not Detect); Fentanyl, urine Not Detected (Not Detect); Opiate Screen Urine Not Detected (Not Detect); Phencyclidine Screen Urine Not Detected (Not Detect)
[2021-05-12 05:03] VITALS: RESP 16
== END 2021-05-12 06:47 | disposition home or self-care (01) ==
PROVIDERS: Nurse Practitioner Family; Emergency Provider Emergency Medicine
DX: F10.129 Alcohol abuse with intoxication, unspecified (principal); N39.0 Urinary tract infection, site not specified; F12.90 Cannabis use, unspecified, uncomplicated; Y90.6 Blood alcohol level of 120-199 mg/100 ml; Z79.899 Other long term (current) drug therapy
CPT/HCPCS: 36415; 80048; 80076; 80307; 81003; 82077; 83605; 83735; 85025; 85610; 87040; 93005; 96361; 96374; 99285; J0696

== ENCOUNTER 2022-12-03 16:40 | Emergency (ER) | payer MEDICAID, SELFPAY ==
[2022-12-03 17:02] VITALS: BP 105/47; BP 138/86; PULSE 72; PULSE 77; RESP 16; TEMP 36.7; O2SAT 95; O2SAT 97; BMI 25.4
--- NOTE | 2022-12-03 17:17 | ED.ALCOHOL ---
HPI - Alcohol General Chief Complaint: ETOH/Substance Use Stated Complaint: sweating dizziness, diabetic Time Seen by Provider: 12/03/22 16:49 Source: patient Mode of arrival: ambulatory Limitations: no limitations History of Present Illness HPI narrative: 49-year-old male presents to emergency department being found sleeping in a laundry minute. Patient denies SI or HI he told me about his history of having seizures since he was 17 he denies cough fever chest pain nausea vomiting or diarrhea he states he is cold and all the homeless shelters are full. MD complaint: alcohol intoxication Related Data Home Medications Medication Instructions Recorded Confirmed levetiracetam 1,000 mg tablet 1 tab PO BID 05/10/21 05/10/21 Previous Rx's Medication Instructions Recorded cefpodoxime 100 mg tablet 100 mg PO BID #14 tabs 05/11/21 Allergies Allergy/AdvReac Type Severity Reaction Status Date / Time aspirin [ASPIRIN] Allergy Unknown STOMACH Verified 12/03/22 17:08 UPSET ibuprofen [IBUPROFEN] Allergy Unknown STOMACH Verified 12/03/22 17:08 UPSET Review of Systems Review of Systems: Review of systems: General: Patient denies any fever chills recent illness or falls Musculoskeletal: Denies back pain or body aches or other injuries HEENT: denies headache, runny nose, ear pain Respiratory: denies shortness of breath, cough Cardiovascular: no chest pain or palpitations : denies dysuria, frequency Abdomen: no nausea vomiting denies abdominal pain Extremities: no swelling, no pain Skin: no diaphoresis Yes all other systems are reviewed and are negative PMFSH Past Medical History Medical History Alcohol abuse Back pain Seizures Social History Social History Alcohol intake: current Alcohol intake frequency: 3 or more drinks per day Alcohol type: hard liquor Patient Tobacco Use Status: Never used Tobacco Smoked in Last 30 Days: Yes Use of substances other than those prescribed or required for medical reasons: Yes Substance Use Type: Marijuana Advance Directives: No Advance Directives Information Provided: Yes Physical Exam ED Vital Signs: Vital Signs - 24 hr 12/03/22 17:02 Temperature 98.1 F Pulse Rate 77 Respiratory Rate 16 Blood Pressure 105/47 L Pulse Oximetry 97 Oxygen Delivery Method Room Air BMI result Body Mass Index 25.4 General: Well-appearing well-nourished in no signs of distress HEENT: Normocephalic atraumatic Neck: No signs of JVD, no masses no tenderness or lymphadenopathy Cardiovascular: Regular rate and rhythm Respiratory: Clear to auscultation bilaterally Abdomen: Soft nontender no masses rectal exam performed guiac negative 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 Extremities: Normal pedal pulses no signs of edema Skin: Dry warm no rashes Back: No tenderness full ROM Medical Decision Making Medical Decision Making [facility] Narrative: Patient is well check of alcohol level as well as other labs to make sure there is no acute reason for the patient to be admitted and I had patient evaluated by myself I do not think he wants to go to detox at this time. Patient has no signs of intoxication looks well labs are normal I will discharge home. Differential Diagnosis Differential Diagnoses: The differential diagnosis associated with the presentation includes Admission/Observation Consideration of admission/observation: Escalation of care including admission/observation considered Lab Data [facility] Lab Attestation statement: I reviewed the patient's lab results. 12/03/22 18:42 12/03/22 18:42 Labs: Lab Results 12/03/22 12/03/22 Range/Units 18:42 18:42 WBC 6.2 (4.8-10.8) X10*3/uL RBC 4.60 (4.60-5.80) X10*6/uL Hgb 13.8 L (14.0-18.0) g/dl Hct 43.3 (42.0-52.0) % MCV 94.1 (80.0-98.0) fL MCH 30.0 (27.0-33.0) pg MCHC 31.9 (31.0-36.0) g/dl RDW 13.8 (11.0-16.0) % Plt Count 89 L (160-400) X10*3/uL MPV 11.4 (9.4-12.4) fL Immature Gran % (Auto) 0.3 (0.0-0.4) % Neut % (Auto) 62.2 (45-73) % Lymph % (Auto) 29.0 (20-40) % [place] % (Auto) 7.0 (2-11) % Eos % (Auto) 1.0 (0-4) % Baso % (Auto) 0.5 (0-2) % Lymph # (Auto) 1.8 (1.2-4.9) X10*3/uL [place] # (Auto) 0.4 (0.1-1.2) X10*3/uL Eos # (Auto) 0.1 (0.0-0.4) X10*3/uL Baso # (Auto) 0.0 (0.0-0.2) X10*3/uL Abs Immat Gran (auto) 0.02 (0.00-0.03) X10*3/uL Absolute Neuts (auto) 3.8 (2.0-8.3) x10*3/uL Absolute Nucleated RBC 0.000 (0.0-0.012) X10*3/uL Nucleated RBC % (auto) 0.0 (0.0-0.2) /100WBC Smear Tech's Comments VERIFIED Sodium 139 (135-145) mmol/L Potassium 3.7 (3.3-5.1) mmol/L Chloride 107 (96-108) mmol/L Carbon Dioxide 15 L (22-29) mmol/L Anion Gap 21 H (12-20) BUN 11 (9-16) mg/dL Creatinine 0.87 (0.5-1.4) mg/dL Estim Creat Clear Calc 101.5 Estimated GFR > 60 Random Glucose 80 (60-115) mg/dL Calcium 9.2 (8.4-10.2) mg/dL Total Bilirubin 0.4 (0.0-1.0) mg/dL Direct Bilirubin < 0.2 (0.0-0.5) mg/dL AST 18 (5-37) U/L ALT 7 (0-40) U/L Alkaline Phosphatase 76 (39-117) U/L Total Protein 6.7 (6.5-8.0) g/dL Albumin 4.2 (3.5-5.0) g/dL Lipase 18 (8-78) U/L Ethyl Alcohol 122 mg/dL Discharge Plan Discharge Clinical Impression: Alcoholic intoxication, Homeless Patient Disposition: Home, Self-Care Instructions: Abuse of Alcohol (ED) Additional Instructions: Please call to follow up. Prescriptions: No Action levetiracetam 1,000 mg tablet 1 tab PO BID cefpodoxime 100 mg tablet 100 mg PO BID Qty: 14 0RF Rx Instructions: must administer with a meal/food Interventions: [place]-Suicide Risk Severity Scale Last Done: 12/03/22 17:14
--- NOTE | 2022-12-03 17:24 | PC.NURSE ---
Patient resting on stretcher at this time
--- NOTE | 2022-12-03 18:16 | PC.NURSE ---
Attempted x2 to obtain labs without success. PCT also tried twice and was also unsuccessful.
--- NOTE | 2022-12-03 18:27 | PC.NURSE ---
Call to phlebotomy: Gracie to come draw patient.
[2022-12-03 18:51] LABS: Hematocrit 43.3 % (42.0-52.0); PLT CLUMP 1; Red Cell Distribution Width 13.8 % (11.0-16.0); SCAN SMEAR FLAG 1
[2022-12-03 18:53] LABS: Basophils Percent Auto 0.5 % (0-2); Eosinophils Absolute Auto 0.1 X10*3/uL (0.0-0.4); Hemoglobin 13.8 g/dl (14.0-18.0); Imm Gran Abs Auto 0.02 X10*3/uL (0.00-0.03); Imm Gran Pct Auto 0.3 % (0.0-0.4); Lymphocytes Absolute Auto 1.8 X10*3/uL (1.2-4.9); MANUAL DIFF FLAG SCAN; Mean Corpuscular HGB Conc 31.9 g/dl (31.0-36.0); Mean Corpuscular Volume 94.1 fL (80.0-98.0); Mean Platelet Volume 11.4 fL (9.4-12.4); Monocytes Absolute Auto 0.4 X10*3/uL (0.1-1.2); Neutrophils Absolute Auto 3.8 x10*3/uL (2.0-8.3); Neutrophils Percent Auto 62.2 % (45-73)
[2022-12-03 18:56] LABS: White Blood Count 6.2 X10*3/uL (4.8-10.8)
[2022-12-03 19:20] LABS: Alanine Aminotransferase 7 U/L (0-40); Albumin Level 4.2 g/dL (3.5-5.0); Alkaline Phosphatase 76 U/L (39-117); Anion Gap 21 (12-20); Aspartate Amino Transferase 18 U/L (5-37); Bilirubin Direct < 0.2 mg/dL (0.0-0.5); Bilirubin Total 0.4 mg/dL (0.0-1.0); Blood Urea Nitrogen 11 mg/dL (9-16); Calcium 9.2 mg/dL (8.4-10.2); Carbon Dioxide 15 mmol/L (22-29); Chloride 107 mmol/L (96-108); Creatinine Clr Calc Pharmacy 101.5; Estimated Glomerular Filt Rate > 60; Ethanol 122 mg/dL; Glucose Random 80 mg/dL (60-115); Lipase 18 U/L (8-78); Potassium 3.7 mmol/L (3.3-5.1); Sodium 139 mmol/L (135-145); Total Protein 6.7 g/dL (6.5-8.0)
[2022-12-03 19:36] LABS: Platelet Count 89 X10*3/uL (160-400); SLIDE REVIEW VERIFIED
--- NOTE | 2022-12-03 20:24 | MHC.RECOVSUP ---
? Reason for consult:ETOH o? Current location:ED18H? o? Identified substance use concern:? -? Support ? Intervention: o? Community resources provided ? Plan: ? Additional information:[facility] met with pt and discusses treatment. Pt stated he doesn't want to go to detox, RC provided pt with recovery resources.
== END 2022-12-03 21:15 | disposition home or self-care (01) ==
PROVIDERS: Emergency Provider Student in an Organized Health Care Education/Training Program
DX: F10.129 Alcohol abuse with intoxication, unspecified (principal); R42 Dizziness and giddiness; Y90.6 Blood alcohol level of 120-199 mg/100 ml; Z59.00 Homelessness unspecified; Z79.899 Other long term (current) drug therapy
CPT/HCPCS: 36415; 80048; 80076; 82077; 83690; 85025; 99283; 99284

== ENCOUNTER 2022-12-04 16:52 | Emergency (ER) | payer MEDICAID, SELFPAY ==
--- NOTE | ~2022-12-04 | XR_ITS ---
EXAMINATION: XR CHEST CLINICAL INFORMATION: Chest pain COMPARISON: Chest x-ray 11/08/2019 TECHNIQUE: 2 views of the chest were obtained. FINDINGS: No significant abnormality is noted involving the heart, lungs, mediastinum, bony thorax or soft tissues. XR/XR chest 2V IMPRESSION: Unremarkable examination.
--- NOTE | 2022-12-04 17:06 | ECG_ITS ---
Test Reason : CHEST PAIN Blood Pressure : / mmHG Vent. Rate : 064 BPM Atrial Rate : 064 BPM P-R Int : 142 ms QRS Dur : 086 ms QT Int : 428 ms P-R-T Axes : 059 059 062 degrees QTc Int : 441 ms Normal sinus rhythm Normal ECG When compared with ECG of 11-MAY-2021 19:43, No significant change was found Referred By: Miah Heard Electronically Signed By:RADHA GONZALEZ
--- NOTE | 2022-12-04 17:07 | ED_ITS ---
HPI - Alcohol General Chief Complaint: ETOH/Substance Use Stated Complaint: ETOH USE,CRISIS/SI PER EMS Time Seen by Provider: 12/04/22 16:55 Source: patient and EMS Mode of arrival: EMS Limitations: no limitations History of Present Illness HPI narrative: 49-year-old male seen here yesterday by me as well. Patient came in telling me about how he has had seizures since he was in patient today states he w as in [place] and he does not why they brought him in here today yesterday he was at a laundromat. Patient denies cough fever he states he does have chest pain does not feel good. Related Data Home Medications Medication Instructions Recorded Confirmed levetiracetam 1,000 mg tablet 1 tab PO BID 05/10/21 05/10/21 Previous Rx's Medication Instructions Recorded cefpodoxime 100 mg tablet 100 mg PO BID #14 tabs 05/11/21 Allergies Allergy/AdvReac Type Severity Reaction Status Date / Time aspirin [ASPIRIN] Allergy Unknown STOMACH Verified 12/03/22 17:08 UPSET ibuprofen [IBUPROFEN] Allergy Unknown STOMACH Verified 12/03/22 17:08 UPSET Review of Systems Review of Systems: Review of systems: General: Patient denies any fever chills recent illness or falls Musculoskeletal: Denies back pain or body aches or other injuries HEENT: denies headache, runny nose, ear pain Respiratory: denies shortness of breath, cough Cardiovascular: chest pain no palpitations : denies dysuria, frequency Abdomen: no nausea vomiting denies abdominal pain Extremities: no swelling, no pain Skin: no diaphoresis Yes all other systems are reviewed and are negative [facility] Past Medical History Medical History Alcohol abuse Back pain Seizures Social History Social History Alcohol intake: current Alcohol intake frequency: 3 or more drinks per day Alcohol type: hard liquor Patient Tobacco Use Status: Never used Tobacco Substance Use Type: Marijuana Advance Directives: No Advance Directives Information Provided: Yes Physical Exam ED Vital Signs: Vital Signs - 24 hr 12/04/22 17:35 Temperature 97.9 F Pulse Rate 65 Respiratory Rate 16 Blood Pressure 114/56 L Pulse Oximetry 95 Oxygen Delivery Method Room Air BMI result Body Mass Index 24.4 General: Well-appearing well-nourished in no signs of distress HEENT: Normocephalic atraumatic Neck: No signs of JVD, no masses no tenderness or lymphadenopathy Cardiovascular: Regular rate and rhythm Respiratory: Clear to auscultation bilaterally Abdomen: Soft nontender no masses Extremities: Normal pedal pulses no signs of edema Skin: Dry warm no rashes Back: No tenderness full ROM Medical Decision Making Medical Decision Making [facility] Narrative: Concern for homelessness recurrent being found down patient has chest pain today so I will give an x-ray EKG and troponin level. Labs are all okay patient with no signs of intoxication I will discharge home. Differential Diagnosis Differential Diagnoses: The differential diagnosis associated with the presentation includes Patient her chest pain and EKG the chest x-ray and troponin level as well as alcohol. I do not think there is any need either breast lumps. There are unremarkable yesterday. Admission/Observation Consideration of admission/observation: Escalation of care including admission/observation considered Lab Data [facility] Lab Attestation statement: I reviewed the patient's lab results. Labs: Lab Results 12/04/22 12/04/22 Range/Units 17:40 17:40 Troponin I High Sens < 3.5 (<3.5-35.0) ng/L Ethyl Alcohol 169 mg/dL Discharge Plan Discharge Clinical Impression: Alcoholic intoxication Patient Disposition: Home, Self-Care Instructions: Abuse of Alcohol (ED), Alcohol Intoxication (ED) Additional Instructions: Please call to follow up. Prescriptions: No Action levetiracetam 1,000 mg tablet 1 tab PO BID cefpodoxime 100 mg tablet 100 mg PO BID Qty: 14 0RF Rx Instructions: must administer with a meal/food
[2022-12-04 17:35] VITALS: BP 114/56; BP 130/66; PULSE 65; PULSE 67; RESP 16; TEMP 36.6; O2SAT 95; O2SAT 98; BMI 24.4
[2022-12-04 18:11] LABS: Ethanol 169 mg/dL; Troponin-I High Sensitivity < 3.5 ng/L (<3.5-35.0)
== END 2022-12-04 21:21 | disposition home or self-care (01) ==
PROVIDERS: Emergency Provider Student in an Organized Health Care Education/Training Program
DX: F10.220 Alcohol dependence with intoxication, uncomplicated (principal); Y90.6 Blood alcohol level of 120-199 mg/100 ml; R07.9 Chest pain, unspecified; Z79.899 Other long term (current) drug therapy
CPT/HCPCS: 36415; 71046; 82077; 84484; 93005; 99283; 99284

== ENCOUNTER 2022-12-06 00:53 | Emergency (ER) | payer MEDICAID, SELFPAY ==
[2022-12-06] VITALS (12 sets, daily range): BP systolic 99–137; BP diastolic 52–87; PULSE 66–78; RESP 15–18; TEMP 33.6–36.8; O2SAT 87–97; BMI 24.3
--- NOTE | ~2022-12-06 | XR_ITS ---
EXAMINATION: XR CHEST CLINICAL INFORMATION: Hypothermia COMPARISON: 12/04/2022 TECHNIQUE: Frontal view of the chest was obtained. FINDINGS: Normal symmetric lung volumes. No parenchymal consolidation. No pleural effusion. No pneumothorax. Cardiomediastinal silhouette and pulmonary vascularity are within normal limits. No acute osseous abnormalities. XR/XR chest 1V IMPRESSION: No acute findings.
--- NOTE | ~2022-12-06 | CT_ITS ---
EXAMINATION: CT HEAD WITHOUT CONTRAST CLINICAL INFORMATION: Fall. Altered mental status. COMPARISON: 01/13/2021 TECHNIQUE: Contiguous axial imaging was performed from the skull base to vertex without intravenous administration of contrast. This CT examination was performed using dose optimization techniques as appropriate, variously including the following: *Automated exposure control *Adjustment of mA and/or kV according to patient size (this includes techniques or standardized protocols for targeted exams where dose is matched to indication/reason for exam; i.e. extremities or head) *Use of iterative reconstruction technique DLP: 742 mGy-cm FINDINGS: There is no evidence of acute intracranial hemorrhage or territorial infarction. No abnormal mass effect or midline shift is seen. Todd to white matter differentiation is well preserved. No extra-axial fluid collections are identified. No hydrocephalus. Proportional prominence of the ventricles and sulcal spaces is consistent with mild volume loss. Patchy periventricular and deep white matter hypoattenuation is consistent with mild small vessel ischemic changes. No acute osseous or soft tissue abnormality. The mastoid air cells and visualized portions of the paranasal sinuses are well aerated. CT/CT head/brain wo IV con IMPRESSION: No acute intracranial pathology.
--- NOTE | 2022-12-06 01:07 | ECG_ITS ---
Test Reason : HYPOTHERMIA Blood Pressure : / mmHG Vent. Rate : 067 BPM Atrial Rate : 067 BPM P-R Int : 136 ms QRS Dur : 088 ms QT Int : 434 ms P-R-T Axes : 064 072 071 degrees QTc Int : 458 ms Artifact in tracing Normal sinus rhythm Normal ECG When compared with ECG of 04-DEC-2022 18:13, No significant change was found Referred By: Angella Prabhakar Electronically Signed By:RADHA GONZALEZ
--- NOTE | 2022-12-06 01:09 | ED.GENADULT ---
HPI - General Adult General Chief complaint: General Medical Stated complaint: ? Hypothermia Time Seen by Provider: 12/06/22 01:01 Source: patient and EMS Mode of arrival: EMS Limitations: no limitations History of Present Illness HPI narrative: Patient comes to the emergency room via EMS from the street. Seems that the patient was found outside the [employer] sitting in the cold concrete, shivering, covered in urine. Police department saw him and they called EMS. On arrival to the emergency room, patient states that he feels very cold, denies any injuries. Patient denies drinking alcohol. Initial rectal temperature 92.5 degrees F. patient denies chest pain or shortness of breath, no UR or UTI symptoms Related Data Home Medications Medication Instructions Recorded Confirmed levetiracetam 1,000 mg tablet 1 tab PO BID 05/10/21 05/10/21 Previous Rx's Medication Instructions Recorded cefpodoxime 100 mg tablet 100 mg PO BID #14 tabs 05/11/21 Allergies Allergy/AdvReac Type Severity Reaction Status Date / Time aspirin [ASPIRIN] Allergy Unknown STOMACH Verified 12/03/22 17:08 UPSET ibuprofen [IBUPROFEN] Allergy Unknown STOMACH Verified 12/03/22 17:08 UPSET Review of Systems Review of Systems: Constitutional : No Weight loss, No Fever, No Chills, No Night Sweats, No Fatigue, No Malaise, complaining of feeling cold ENT/Mouth : No Hearing loss, No Ear Pain, No Nasal Congestion, No Sinus Pain, No Hoarseness, No sore throat, No Rhinorrhea, No Swallowing Difficulty Eyes: No Eye Pain, No Swelling, No Redness, No Foreign Body, No Discharge, No Vision Changes Cardiovascular : No Chest Pain, No SOB, No Dyspnea on Exertion, No Orthopnea, No Edema, No Palpitations Respiratory : No Cough, No Sputum, No Wheezing, No Smoke Exposure, No Dyspnea Gastrointestinal : No Nausea, No Vomiting, No Diarrhea, No Constipation, No abdominal Pain, No Hematochezia, No Melena Genitourinary : no irregular bleeding, No Dysuria, No Urinary Frequency, No Hematuria, No Urinary Incontinence, No Urgency, No Flank Pain, No Urinary Flow Changes, No Hesitancy Musculoskeletal : No joint pain, No Myalgias, No Joint Swelling Skin : No Skin Lesions, No rash Neuro : No Weakness, No Numbness, No Paresthesias, No Loss of Consciousness, No Dizziness, No Headache Psych : No Anxiety/Panic, No Depression, No SI/HI/AH/VH, No Social Issues, Heme/Lymph: No Bruising, No Bleeding,No Lymphadenopathy Endocrine : No Polyuria, No Polydipsia, No Temperature Intolerance [facility] Past Medical History Medical History Alcohol abuse Back pain Seizures Social History Social History Alcohol intake: current Alcohol intake frequency: 3 or more drinks per day Alcohol type: hard liquor Patient Tobacco Use Status: Never used Tobacco Substance Use Type: Marijuana Advance Directives: No Advance Directives Information Provided: No Physical Exam ED Vital Signs: Vital Signs - 24 hr 12/06/22 01:08 12/06/22 02:13 12/06/22 03:03 Temperature 92.5 F L 93.8 F L 95.2 F L Pulse Rate 66 71 Respiratory Rate 18 15 Blood Pressure 116/74 115/75 Pulse Oximetry 94 94 Oxygen Delivery Method Room Air Room Air 12/06/22 04:15 12/06/22 05:30 Temperature 97.0 F 98.1 F Pulse Rate 78 76 Respiratory Rate 16 16 Blood Pressure 99/52 L 106/64 Pulse Oximetry 95 97 Oxygen Delivery Method Room Air Room Air BMI result Body Mass Index 24.3 Const Other: Appearance: Alert. Oriented X3. No acute distress. Eyes: Pupils equal, round and reactive to light. ENT: Pharynx normal. Neck: Normal inspection. Neck supple. No lymph nodes noted. No crepitus CVS: Normal heart rate and rhythm. Pulses normal. Normal S1 and S2 Respiratory: No respiratory distress. Breath sounds normal. No Wheezing. No rales Abdomen: Soft and nontender. No rigidity. No distention. Skin: Skin cold and dry. Normal skin color. Normal skin turgor. Extremities: No lower extremity edema. No Lacerations. No Rash Neuro: Oriented X 3. No motor deficit. No sensory deficit. Moving all extremities. No slurred speech. CN 2 through 12 grossly intact Psych: calm, cooperative, normal affect Course Course Course Narrative: -patient is hypothermic, likely from sitting a prolonged time outside. Tonight is a cold night. -patient denies any URI, UTI symptoms or abdominal pain. Unlikely to be septic. We will obtain labs Medications Administered Discontinued Medications Generic Name Dose Route Start Last Admin Trade Name Karyn PRN Reason Stop Dose Admin Sodium Chloride 1,000 mls @ 999 mls/hr 12/06/22 02:31 12/06/22 02:52 Ns IVCONT 12/06/22 03:31 999 mls/hr .Q1H1M ONE Administration Medical Decision Making Medical Decision Making [facility] Narrative: -patient's lactic was elevated, likely secondary to alcohol intake or seizure. Patient does have history of seizures -patient given IV Keppra -likely casting improved from 4.2-3.2. Patient's C received IV fluids, white blood cell count within normal limits. -patient hypothermic and hypotensive likely secondary to hypothermia. At this time, sepsis no suspected. Chest x-ray negative , COVID negative, urine still pending. However, sepsis is not suspect -patient receive a total of 3 L. Antibiotics not indicated at this time. Lactic to be repeated -patient's lactic acid improved and mental status improved as well, patient can be discharged home. -sign-out given to Dr. Morales Differential Diagnosis Differential Diagnoses: The differential diagnosis associated with the presentation includes (CVA, alcohol intoxication, substance abuse, seizure) Lab Data [facility] Lab Attestation statement: I reviewed the patient's lab results. 12/06/22 01:48 12/06/22 01:48 Labs: Lab Results 12/06/22 12/06/22 12/06/22 Range/Units 01:48 01:48 01:48 WBC 6.4 (4.8-10.8) X10*3/uL RBC 5.04 (4.60-5.80) X10*6/uL Hgb 14.9 (14.0-18.0) g/dl Hct 44.9 (42.0-52.0) % MCV 89.1 D (80.0-98.0) fL MCH 29.6 (27.0-33.0) pg MCHC 33.2 (31.0-36.0) g/dl RDW 13.4 (11.0-16.0) % Plt Count 169 D (160-400) X10*3/uL MPV 10.0 (9.4-12.4) fL Immature Gran % (Auto) 0.3 (0.0-0.4) % Neut % (Auto) 50.7 (45-73) % Lymph % (Auto) 36.0 (20-40) % [place] % (Auto) 10.3 (2-11) % Eos % (Auto) 2.2 (0-4) % Baso % (Auto) 0.5 (0-2) % Lymph # (Auto) 2.3 (1.2-4.9) X10*3/uL [place] # (Auto) 0.7 (0.1-1.2) X10*3/uL Eos # (Auto) 0.1 (0.0-0.4) X10*3/uL Baso # (Auto) 0.0 (0.0-0.2) X10*3/uL Abs Immat Gran (auto) 0.02 (0.00-0.03) X10*3/uL Absolute Neuts (auto) 3.3 (2.0-8.3) x10*3/uL Absolute Nucleated RBC 0.000 (0.0-0.012) X10*3/uL Nucleated RBC % (auto) 0.0 (0.0-0.2) /100WBC PT 10.3 (10.0-13.1) SEC INR 0.9 (0.9-1.1) Sodium 135 (135-145) mmol/L Potassium 3.7 (3.3-5.1) mmol/L Chloride 97 (96-108) mmol/L Carbon Dioxide 24 (22-29) mmol/L Anion Gap 18 (12-20) BUN 9 (9-16) mg/dL Creatinine 0.81 (0.5-1.4) mg/dL Estim Creat Clear Calc 102.6 Estimated GFR > 60 Random Glucose 78 (60-115) mg/dL Lactic Acid (0.5-2.0) mmol/L Lactic Acid F/U @ 2Hr (0.5-2.0) mmol/L Calcium 9.0 (8.4-10.2) mg/dL Total Bilirubin 0.5 (0.0-1.0) mg/dL Direct Bilirubin 0.2 (0.0-0.5) mg/dL AST 20 (5-37) U/L ALT 11 (0-40) U/L Alkaline Phosphatase 80 (39-117) U/L Troponin I High Sens (<3.5-35.0) ng/L Total Protein 6.5 (6.5-8.0) g/dL Albumin 4.3 (3.5-5.0) g/dL Lipase 33 (8-78) U/L Ethyl Alcohol 223 mg/dL COVID-19 (FRANSICO) (Negative) COVID-19 Clin Com 12/06/22 12/06/22 12/06/22 Range/Units 01:48 01:48 01:48 WBC (4.8-10.8) X10*3/uL RBC (4.60-5.80) X10*6/uL Hgb (14.0-18.0) g/dl Hct (42.0-52.0) % MCV (80.0-98.0) fL MCH (27.0-33.0) pg MCHC (31.0-36.0) g/dl RDW (11.0-16.0) % Plt Count (160-400) X10*3/uL MPV (9.4-12.4) fL Immature Gran % (Auto) (0.0-0.4) % Neut % (Auto) (45-73) % Lymph % (Auto) (20-40) % [place] % (Auto) (2-11) % Eos % (Auto) (0-4) % Baso % (Auto) (0-2) % Lymph # (Auto) (1.2-4.9) X10*3/uL [place] # (Auto) (0.1-1.2) X10*3/uL Eos # (Auto) (0.0-0.4) X10*3/uL Baso # (Auto) (0.0-0.2) X10*3/uL Abs Immat Gran (auto) (0.00-0.03) X10*3/uL Absolute Neuts (auto) (2.0-8.3) x10*3/uL Absolute Nucleated RBC (0.0-0.012) X10*3/uL Nucleated RBC % (auto) (0.0-0.2) /100WBC PT (10.0-13.1) SEC INR (0.9-1.1) Sodium (135-145) mmol/L Potassium (3.3-5.1) mmol/L Chloride (96-108) mmol/L Carbon Dioxide (22-29) mmol/L Anion Gap (12-20) BUN (9-16) mg/dL Creatinine (0.5-1.4) mg/dL Estim Creat Clear Calc Estimated GFR Random Glucose (60-115) mg/dL Lactic Acid 4.2 H* (0.5-2.0) mmol/L Lactic Acid F/U @ 2Hr (0.5-2.0) mmol/L Calcium (8.4-10.2) mg/dL Total Bilirubin (0.0-1.0) mg/dL Direct Bilirubin (0.0-0.5) mg/dL AST (5-37) U/L ALT (0-40) U/L Alkaline Phosphatase (39-117) U/L Troponin I High Sens < 3.5 (<3.5-35.0) ng/L Total Protein (6.5-8.0) g/dL Albumin (3.5-5.0) g/dL Lipase (8-78) U/L Ethyl Alcohol mg/dL COVID-19 (FRANSICO) Negative (Negative) COVID-19 Clin Com See Note 12/06/22 Range/Units 04:28 WBC (4.8-10.8) X10*3/uL RBC (4.60-5.80) X10*6/uL Hgb (14.0-18.0) g/dl Hct (42.0-52.0) % MCV (80.0-98.0) fL MCH (27.0-33.0) pg MCHC (31.0-36.0) g/dl RDW (11.0-16.0) % Plt Count (160-400) X10*3/uL MPV (9.4-12.4) fL Immature Gran % (Auto) (0.0-0.4) % Neut % (Auto) (45-73) % Lymph % (Auto) (20-40) % [place] % (Auto) (2-11) % Eos % (Auto) (0-4) % Baso % (Auto) (0-2) % Lymph # (Auto) (1.2-4.9) X10*3/uL [place] # (Auto) (0.1-1.2) X10*3/uL Eos # (Auto) (0.0-0.4) X10*3/uL Baso # (Auto) (0.0-0.2) X10*3/uL Abs Immat Gran (auto) (0.00-0.03) X10*3/uL Absolute Neuts (auto) (2.0-8.3) x10*3/uL Absolute Nucleated RBC (0.0-0.012) X10*3/uL Nucleated RBC % (auto) (0.0-0.2) /100WBC PT (10.0-13.1) SEC INR (0.9-1.1) Sodium (135-145) mmol/L Potassium (3.3-5.1) mmol/L Chloride (96-108) mmol/L Carbon Dioxide (22-29) mmol/L Anion Gap (12-20) BUN (9-16) mg/dL Creatinine (0.5-1.4) mg/dL Estim Creat Clear Calc Estimated GFR Random Glucose (60-115) mg/dL Lactic Acid (0.5-2.0) mmol/L Lactic Acid F/U @ 2Hr 3.2 H* (0.5-2.0) mmol/L Calcium (8.4-10.2) mg/dL Total Bilirubin (0.0-1.0) mg/dL Direct Bilirubin (0.0-0.5) mg/dL AST (5-37) U/L ALT (0-40) U/L Alkaline Phosphatase (39-117) U/L Troponin I High Sens (<3.5-35.0) ng/L Total Protein (6.5-8.0) g/dL Albumin (3.5-5.0) g/dL Lipase (8-78) U/L Ethyl Alcohol mg/dL COVID-19 (FRANSICO) (Negative) COVID-19 Clin Com Radiology Impression Discussion of test interpretation with radiology: I have reviewed the radiologist's reading. Radiologist Impression: FINDINGS: There is no evidence of acute intracranial hemorrhage or territorial infarction. No abnormal mass effect or midline shift is seen. Todd to white matter differentiation is well preserved. No extra-axial fluid collections are identified. No hydrocephalus. Proportional prominence of the ventricles and sulcal spaces is consistent with mild volume loss. Patchy periventricular and deep white matter hypoattenuation is consistent with mild small vessel ischemic changes. No acute osseous or soft tissue abnormality. The mastoid air cells and visualized portions of the paranasal sinuses are well aerated. ? CT/CT head/brain wo IV con IMPRESSION: No acute intracranial pathology. Discharge Plan Discharge Clinical Impression: Seizure, Hypothermia Patient Disposition: Still a Patient Prescriptions: No Action levetiracetam 1,000 mg tablet 1 tab PO BID cefpodoxime 100 mg tablet 100 mg PO BID Qty: 14 0RF Rx Instructions: must administer with a meal/food
--- NOTE | 2022-12-06 01:53 | PC.NURSE ---
Pt arrive via ambulance hypothermic. Rectal temp found to be 92.5. João jewell applied to patient on high. Will continue to monitor temp.
[2022-12-06 01:54] LABS: MANUAL DIFF FLAG NO
[2022-12-06 01:56] LABS: Basophils Percent Auto 0.5 % (0-2); Eosinophils Absolute Auto 0.1 X10*3/uL (0.0-0.4); Eosinophils Percent Auto 2.2 % (0-4); Hematocrit 44.9 % (42.0-52.0); Hemoglobin 14.9 g/dl (14.0-18.0); Imm Gran Abs Auto 0.02 X10*3/uL (0.00-0.03); Imm Gran Pct Auto 0.3 % (0.0-0.4); Lymphocytes Absolute Auto 2.3 X10*3/uL (1.2-4.9); Mean Corpuscular HGB Conc 33.2 g/dl (31.0-36.0); Mean Corpuscular Hemoglobin 29.6 pg (27.0-33.0); Mean Corpuscular Volume 89.1 fL (80.0-98.0); Monocytes Absolute Auto 0.7 X10*3/uL (0.1-1.2); Monocytes Percent Auto 10.3 % (2-11); Neutrophils Absolute Auto 3.3 x10*3/uL (2.0-8.3); Neutrophils Percent Auto 50.7 % (45-73); Platelet Count 169 X10*3/uL (160-400); Red Blood Count 5.04 X10*6/uL (4.60-5.80); Red Cell Distribution Width 13.4 % (11.0-16.0); White Blood Count 6.4 X10*3/uL (4.8-10.8)
[2022-12-06 02:02] LABS: INTERNATIONAL NORM RATIO 0.9 (0.9-1.1); Prothrombin Time 10.3 SEC (10.0-13.1)
[2022-12-06 02:11] LABS: COVID-19 Test Negative (Negative); IDNOW Serial# BCCEAD1C
[2022-12-06 02:13] LABS: Alanine Aminotransferase 11 U/L (0-40); Albumin Level 4.3 g/dL (3.5-5.0); Alkaline Phosphatase 80 U/L (39-117); Anion Gap 18 (12-20); Aspartate Amino Transferase 20 U/L (5-37); Bilirubin Direct 0.2 mg/dL (0.0-0.5); Bilirubin Total 0.5 mg/dL (0.0-1.0); Blood Urea Nitrogen 9 mg/dL (9-16); Carbon Dioxide 24 mmol/L (22-29); Chloride 97 mmol/L (96-108); Creatinine Clr Calc Pharmacy 102.6; Estimated Glomerular Filt Rate > 60; Ethanol 223 mg/dL; Glucose Random 78 mg/dL (60-115); Lactic Acid 4.2 mmol/L (0.5-2.0); Lipase 33 U/L (8-78); Potassium 3.7 mmol/L (3.3-5.1); Sodium 135 mmol/L (135-145); Total Protein 6.5 g/dL (6.5-8.0)
[2022-12-06 02:21] LABS: Troponin-I High Sensitivity < 3.5 ng/L (<3.5-35.0)
[2022-12-06] MEDS: 0.9 % Sodium Chloride 1,000 ML 999 ML IVCONT (02:52)
--- NOTE | 2022-12-06 02:53 | PC.NURSE ---
IV fluids infusing. Connected to fluid warmer to combat hypothermia.
--- NOTE | 2022-12-06 03:02 | PC.NURSE ---
Rectal probe inserted, temp 95.2 at this time. Provider aware.
[2022-12-06 03:53] LABS: Reflex Lactate? Lactic Acid Added
--- NOTE | 2022-12-06 04:46 | PC.NURSE ---
Lab called with a critical value, lactic acid 3.2. Informed both RN AND .
[2022-12-06 04:47] LABS: ~Lactic Acid-LAB USE ONLY 3.2 mmol/L (0.5-2.0)
--- NOTE | 2022-12-06 05:41 | PC.NURSE ---
Pt temp increased to 98.0, Bearhugger removed and heated IV fluids stopped. Pt vitals stable at this time. Pt stated that he is still unable to provide urine sample. Provider notified. Plan to bladder scan pt.
[2022-12-06] MEDS: levETIRAcetam 500 MG/5 ML VIAL 1000 MG IV (06:25)
[2022-12-06 06:32] LABS: Reflex Lactate? 2 Y
[2022-12-06 06:56] LABS: Amphetamine Screen Urine Not Detected (Not Detect); Barbiturates, Urine Not Detected (Not Detect); Benzodiazepines Screen Urine Not Detected (Not Detect); Cannabinoid Screen Urine POSITIVE (Not Detect); Cocaine Screen Urine Not Detected (Not Detect); Fentanyl, urine Not Detected (Not Detect); Opiate Screen Urine Not Detected (Not Detect); Phencyclidine Screen Urine Not Detected (Not Detect)
--- NOTE | 2022-12-06 07:12 | PC.NURSE ---
resumed care of this patient from Gaston NARVAEZ. He is currently resting comfortably at this time. Denies complaints. 3L bolus reported to be given over last shift.
[2022-12-06 07:14] LABS: ~Lactic Acid-LAB USE ONLY 2.7 mmol/L (0.5-2.0)
[2022-12-06 07:17] LABS: Appearance Urine Clear; Color Urine Yellow; Glucose Urine UA Negative (Negative); Leukocyte Esterase Urine Negative (Negative); Nitrite Urine Negative (Negative); Urine Blood Negative (Negative); Urine Ketones Trace mg/dL (Negative); Urine Protein Trace mg/dL (Neg-Trace)
[2022-12-06] MEDS: Acetaminophen 325 MG TABLET 975 MG PO (12:02)
--- NOTE | 2022-12-06 13:14 | MHC.RECOVRN ---
Met with pt in ED13 after CM request due to pts alcohol use. Pt laying in bed, awake, alert, easily engages in conversation. Pt dismissive of alcohol use, focused on housing. Pt reports having epileptic seizures not related to alcohol use. Pt denies recent alcohol use, however, states [employer] having a couple nips and a couple beers. Pt had been living with his bother for 2 weeks while awaiting placement into [facility] housing. Pt reports having a seizure at brother's house and brother said he could not return. Pt states I drink because it's zero degrees and I have to sleep outside like a dog. Pt reports working with [facility] x 1 year and was informed there was housing available for him last week. However, pt was in [facility] due to seizure at brother's house and was unable to move in. Pt reports difficulty connecting with [facility] since dc from [facility]. Pt is not interested in AUD tx at this time, seeking assistance with calling [facility]. Discussed with CM.
--- NOTE | 2022-12-06 13:59 | MHC.CM.ED ---
Received case management consult from Dr Morales. Patient is homeless and came to the ER via EMS with hypothermia. Work up essentially negative. Met with patient in regards to discharge planning. Patient is homeless. T/W spoke with [facility]. There is no male bed available. List of homeless shelters provided to patient. Patient is aware there is a telephone in the waiting room. When patient is discharge, patient can use the telephone in the ER to try and obtain a [facility] bed. Patient verbalized understanding and agreeable. Monica NARVAEZ and Dr Morales aware. Continue to monitor for d/c needs.
== END 2022-12-06 14:36 | disposition still patient (30) ==
PROVIDERS: Emergency Provider Emergency Medicine
DX: R56.9 Unspecified convulsions (principal); T68.XXXA Hypothermia, initial encounter; X31.XXXA Exposure to excessive natural cold, initial encounter; Z20.822 Contact with and (suspected) exposure to COVID-19
CPT/HCPCS: 36415; 70450; 71045; 80048; 80076; 80307; 81003; 82077; 83605; 83690; 84484; 85025; 85610; 87040; 87635; 93005; 96361; 96374; 99284; 99285; J1953

== ENCOUNTER 2022-12-06 21:01 | Emergency (ER) | payer MEDICAID, SELFPAY ==
[2022-12-06 21:12] VITALS: BP 121/78; PULSE 70; RESP 18; TEMP 36.4; O2SAT 98; BMI 24.4
--- NOTE | 2022-12-06 21:38 | ED_ITS ---
HPI - General Adult General Chief complaint: General Medical Stated complaint: etoh Time Seen by Provider: 12/06/22 21:19 Source: patient Mode of arrival: EMS Limitations: no limitations History of Present Illness HPI narrative: Patient alcoholic history of seizure disorder was here last night discharged at 14:30 as he was cold and kept in the ER for hypothermia and alcohol abuse patient was given Keppra in the ER patient is homeless comes here as he claims that he had a seizure claims that he been not drink for last 2 days but alcohol level was 223 last night Related Data Home Medications Medication Instructions Recorded Confirmed levetiracetam 1,000 mg tablet 1 tab PO BID 05/10/21 05/10/21 Previous Rx's Medication Instructions Recorded cefpodoxime 100 mg tablet 100 mg PO BID #14 tabs 05/11/21 Allergies Allergy/AdvReac Type Severity Reaction Status Date / Time aspirin [ASPIRIN] Allergy Unknown STOMACH Verified 12/06/22 21:17 UPSET ibuprofen [IBUPROFEN] Allergy Unknown STOMACH Verified 12/06/22 21:17 UPSET Review of Systems Review of Systems: Yes all other systems are reviewed and are negative [facility] Past Medical History Medical History Alcohol abuse Back pain Seizures Social History Social History Alcohol intake: current Alcohol intake frequency: 3 or more drinks per day Alcohol type: hard liquor Patient Tobacco Use Status: Never used Tobacco Substance Use Type: Heroin and Marijuana Advance Directives: Yes Advance Directives on File: Yes Advance Directives Date on File: 12/06/22 Physical Exam ED Vital Signs: Vital Signs - 24 hr 12/06/22 21:12 Temperature 97.6 F Pulse Rate 70 Respiratory Rate 18 Blood Pressure 121/78 Pulse Oximetry 98 Oxygen Delivery Method Room Air BMI result Body Mass Index 24.4 Appearance: Alert. Oriented X3. No acute distress. ETOH+ Eyes: PERRLA, No Nystagmus ENT: Pharynx normal. Oral Mucosa moist Neck: Normal inspection. Neck supple. CVS: Normal heart rate and rhythm. Pulses normal. Respiratory: No respiratory distress. Equal air entry bilateral, no wheezi ng/rales/rhonchi Abdomen: Soft and nontender. Bowel sounds are present, no mass palpable, no CVA tenderness Skin: Skin warm and dry. Normal skin color. Normal skin turgor. Extremities: No lower extremity edema. No calf tenderness Neuro: Oriented X 3. No motor deficit. No sensory deficit.No cerebellar signs , cranial nerves II-XII intact walking is steady gait Medical Decision Making Medical Decision Making MDM Narrative: Patient recall abuse homeless history of seizures comes back as he had a seizure earlier patient was given Keppra when he came last night is taking by mouth Keppra no signs of injuries no postictal phase patient ambulate in a steady gait Discharge Plan Discharge Clinical Impression: Seizure, Alcohol abuse Patient Disposition: Home, Self-Care Instructions: Abuse of Alcohol (ED), Recurrent Seizures in Adults (ED) Additional Instructions: Continue your medications and stop drinking alcohol Prescriptions: No Action levetiracetam 1,000 mg tablet 1 tab PO BID cefpodoxime 100 mg tablet 100 mg PO BID Qty: 14 0RF Rx Instructions: must administer with a meal/food
== END 2022-12-06 23:06 | disposition home or self-care (01) ==
PROVIDERS: Emergency Provider Internal Medicine
DX: R56.9 Unspecified convulsions (principal); F10.10 Alcohol abuse, uncomplicated
CPT/HCPCS: 99282; 99284

== ENCOUNTER 2022-12-07 20:03 | Emergency (ER) | payer MEDICAID, SELFPAY ==
[2022-12-07 20:21] VITALS: BP 127/79; PULSE 68; PULSE 75; RESP 16; TEMP 36.8; O2SAT 96; BMI 25.2
--- NOTE | 2022-12-07 20:24 | ED.GENADULT ---
HPI - General Adult General Chief complaint: General Medical <PETEY Jefferson - Last Filed: 12/07/22 20:24> Stated complaint: ETOH <PETEY Jefferson - Last Filed: 12/07/22 20:24> Time Seen by Provider: 12/07/22 21:09 <PETEY Jefferson - Last Filed: 12/07/22 20:24> Source: patient <Ayush Thakkar MD - Last Filed: 12/08/22 06:32> Mode of arrival: EMS <Ayush Thakkar MD - Last Filed: 12/08/22 06:32> Limitations: no limitations <Ayush Thakkar MD - Last Filed: 12/08/22 06:32> History of Present Illness HPI narrative: Patient alcoholic and homeless. Been coming here almost every day for last 4 days saying that he is homeless and has to go to nursing home but does not make it to nursing home and come to the ER. Does have history of seizures on Keppra non complaint called by bystander as patient was seen drinking but the same spot for last 24 hours patient does have Keppra with him no signs of injury patient had a CT scan of head done yesterday was normal <Ayush Thakkar MD - Last Filed: 12/08/22 06:32> Related Data Home medications: Home Medications Medication Instructions Recorded Confirmed levetiracetam 1,000 mg tablet 1 tab PO BID 05/10/21 05/10/21 Previous Rx's Medication Instructions Recorded cefpodoxime 100 mg tablet 100 mg PO BID #14 tabs 05/11/21 <PETEY Jefferson - Last Filed: 12/07/22 20:24> Allergies/adverse reactions: Allergies Allergy/AdvReac Type Severity Reaction Status Date / Time aspirin [ASPIRIN] Allergy Unknown STOMACH Verified 12/07/22 20:32 UPSET ibuprofen [IBUPROFEN] Allergy Unknown STOMACH Verified 12/07/22 20:32 UPSET <PETEY Jefferson - Last Filed: 12/07/22 20:24> Review of Systems Review of Systems: Yes all other systems are reviewed and are negative <Ayush Thakkar MD - Last Filed: 12/08/22 06:32> PMFSH Past Medical History Medical History: Medical History Alcohol abuse Back pain Seizures <PETEY Jefferson - Last Filed: 12/07/22 20:24> Social History Social History: Social History Alcohol intake: current Alcohol intake frequency: 3 or more drinks per day Alcohol type: beer and hard liquor Patient Tobacco Use Status: Never used Tobacco Smoked in Last 30 Days: Yes Use of substances other than those prescribed or required for medical reasons: Yes Substance Use Type: Marijuana Substance Use Frequency: Daily Last Used Substance: Days (ago) Any prior treatment program specific to substance use: No Advance Directives: Yes Advance Directives on File: Yes Advance Directives Date on File: 12/06/22 <PETEY Jefferson - Last Filed: 12/07/22 20:24> Physical Exam ED Vital Signs: Vital Signs - 24 hr 12/07/22 20:21 12/07/22 22:24 12/08/22 03:28 Temperature 98.3 F Pulse Rate 68 92 86 Respiratory Rate 16 15 16 Blood Pressure 127/79 176/92 H 117/64 Pulse Oximetry 96 97 92 Oxygen Delivery Method Room Air Room Air Room Air 12/08/22 05:23 Temperature Pulse Rate 95 Respiratory Rate 16 Blood Pressure 98/59 L Pulse Oximetry 93 Oxygen Delivery Method Room Air BMI result Body Mass Index 25.2 <PETEY Jefferson - Last Filed: 12/07/22 20:24> Vital Signs - 24 hr 12/07/22 20:21 12/07/22 22:24 12/08/22 03:28 Temperature 98.3 F Pulse Rate 68 92 86 Respiratory Rate 16 15 16 Blood Pressure 127/79 176/92 H 117/64 Pulse Oximetry 96 97 92 Oxygen Delivery Method Room Air Room Air Room Air 12/08/22 05:23 Temperature Pulse Rate 95 Respiratory Rate 16 Blood Pressure 98/59 L Pulse Oximetry 93 Oxygen Delivery Method Room Air BMI result Body Mass Index 25.2 <Ayush Thakkar MD - Last Filed: 12/08/22 06:32> Appearance: Alert. Oriented X3. No acute distress. ETOH Eyes: Anisocoria with left eye dilated(old per patient) ENT: Pharynx normal. Oral Mucosa moist Neck: Normal inspection. Neck supple. CVS: Normal heart rate and rhythm. Pulses normal. Respiratory: No respiratory distress. Equal air entry bilateral, no wheezing/rales/rhonchi Abdomen: Soft and nontender. Bowel sounds are present, no mass palpable, no CVA tenderness Skin: Skin warm and dry. Normal skin color. Normal skin turgor. Extremities: No lower extremity edema. No calf tenderness Neuro: Oriented X 3. No motor deficit. No sensory deficit.No cerebellar signs , cranial nerves II-XII intact <Ayush Thakkar MD - Last Filed: 12/08/22 06:32> Course Course Course Narrative: RME performed by Penny Craig PA-C. Patient is a 57 year old male presenting to the emergency department acutely intoxicated. Labs ordered. <PETEY Jefferson - Last Filed: 12/07/22 20:24> Medications Administered Discontinued Medications Generic Name Dose Route Start Last Admin Trade Name Freq PRN Reason Stop Dose Admin Levetiracetam 1,000 mg 12/07/22 21:30 12/07/22 22:47 Levetiracetam 1,000 Mg Tablet PO 12/07/22 21:31 1,000 mg ONCE ONE Administration <PETEY Jefferson - Last Filed: 12/07/22 20:24> Medications Administered Discontinued Medications Generic Name Dose Route Start Last Admin Trade Name Freq PRN Reason Stop Dose Admin Levetiracetam 1,000 mg 12/07/22 21:30 12/07/22 22:47 Levetiracetam 1,000 Mg Tablet PO 12/07/22 21:31 1,000 mg ONCE ONE Administration <Ayush Thakkar MD - Last Filed: 12/08/22 06:32> Medical Decision Making Medical Decision Making MDM Narrative: Patient refused to go to detox more like to go home discharge him home advised not to drink alcohol <Ayush Thakkar MD - Last Filed: 12/08/22 06:32> Lab Data [facility] Lab Attestation statement: I reviewed the patient's lab results. <Ayush Thakkar MD - Last Filed: 12/08/22 06:32> Result Diagrams: 12/07/22 22:21 12/07/22 22:21 <PETEY Jefferson - Last Filed: 12/07/22 20:24> Labs: Lab Results 12/07/22 12/07/22 12/08/22 Range/Units 22:21 22:21 05:26 WBC 6.4 (4.8-10.8) X10*3/uL RBC 4.68 (4.60-5.80) X10*6/uL Hgb 13.8 L (14.0-18.0) g/dl Hct 41.8 L (42.0-52.0) % MCV 89.3 (80.0-98.0) fL MCH 29.5 (27.0-33.0) pg MCHC 33.0 (31.0-36.0) g/dl RDW 13.8 (11.0-16.0) % Plt Count 166 (160-400) X10*3/uL MPV 10.0 (9.4-12.4) fL Immature Gran % (Auto) 0.2 (0.0-0.4) % Neut % (Auto) 39.5 L (45-73) % Lymph % (Auto) 47.7 H (20-40) % [place] % (Auto) 10.6 (2-11) % Eos % (Auto) 1.2 (0-4) % Baso % (Auto) 0.8 (0-2) % Lymph # (Auto) 3.1 (1.2-4.9) X10*3/uL [place] # (Auto) 0.7 (0.1-1.2) X10*3/uL Eos # (Auto) 0.1 (0.0-0.4) X10*3/uL Baso # (Auto) 0.1 (0.0-0.2) X10*3/uL Abs Immat Gran (auto) 0.01 (0.00-0.03) X10*3/uL Absolute Neuts (auto) 2.5 (2.0-8.3) x10*3/uL Absolute Nucleated RBC 0.000 (0.0-0.012) X10*3/uL Nucleated RBC % (auto) 0.0 (0.0-0.2) /100WBC Sodium 143 (135-145) mmol/L Potassium 3.7 (3.3-5.1) mmol/L Chloride 104 (96-108) mmol/L Carbon Dioxide 27 (22-29) mmol/L Anion Gap 16 (12-20) BUN 8 L (9-16) mg/dL Creatinine 0.66 (0.5-1.4) mg/dL Estim Creat Clear Calc 125.9 Estimated GFR > 60 Random Glucose 87 (60-115) mg/dL Calcium 8.6 (8.4-10.2) mg/dL Magnesium 1.6 (1.6-2.6) mg/dL Total Bilirubin 0.5 (0.0-1.0) mg/dL AST 31 (5-37) U/L ALT 17 (0-40) U/L Alkaline Phosphatase 76 (39-117) U/L Total Protein 6.2 L (6.5-8.0) g/dL Albumin 4.1 (3.5-5.0) g/dL Urine Color Yellow Urine Appearance Clear Urine pH 6.0 (5.0-9.0) Ur Specific [place] 1.015 (1.005-1.025) Urine Protein 30 (1+) H (Neg-Trace) mg/dL Urine Glucose (UA) Negative (Negative) mg/dL Urine Ketones Trace (Negative) mg/dL Urine Blood Negative (Negative) Urine Nitrite Negative (Negative) Ur Leukocyte Esterase Negative (Negative) Urine RBC 0-2 (0-2) /HPF Urine WBC 0-5 (0-5) /HPF Ur Squamous Epith Cells 0-2 (0-2) /HPF Urine Bacteria None Seen (None Seen) Hyaline Casts 3-5 (0-2) /LPF Salicylates < 5.0 L (15-30) mg/dL Urine Opiates Screen (Not Detect) Urine Fentanyl Screen (Not Detect) Acetaminophen < 17 (<30) mcg/mL Ur Barbiturates Screen (Not Detect) Ur Phencyclidine Scrn (Not Detect) Ur Amphetamines Screen (Not Detect) U Benzodiazepines Scrn (Not Detect) Urine Cocaine Screen (Not Detect) U Marijuana (THC) Screen (Not Detect) Ethyl Alcohol 242 mg/dL 12/08/22 Range/Units 05:26 WBC (4.8-10.8) X10*3/uL RBC (4.60-5.80) X10*6/uL Hgb (14.0-18.0) g/dl Hct (42.0-52.0) % MCV (80.0-98.0) fL MCH (27.0-33.0) pg MCHC (31.0-36.0) g/dl RDW (11.0-16.0) % Plt Count (160-400) X10*3/uL MPV (9.4-12.4) fL Immature Gran % (Auto) (0.0-0.4) % Neut % (Auto) (45-73) % Lymph % (Auto) (20-40) % [place] % (Auto) (2-11) % Eos % (Auto) (0-4) % Baso % (Auto) (0-2) % Lymph # (Auto) (1.2-4.9) X10*3/uL [place] # (Auto) (0.1-1.2) X10*3/uL Eos # (Auto) (0.0-0.4) X10*3/uL Baso # (Auto) (0.0-0.2) X10*3/uL Abs Immat Gran (auto) (0.00-0.03) X10*3/uL Absolute Neuts (auto) (2.0-8.3) x10*3/uL Absolute Nucleated RBC (0.0-0.012) X10*3/uL Nucleated RBC % (auto) (0.0-0.2) /100WBC Sodium (135-145) mmol/L Potassium (3.3-5.1) mmol/L Chloride (96-108) mmol/L Carbon Dioxide (22-29) mmol/L Anion Gap (12-20) BUN (9-16) mg/dL Creatinine (0.5-1.4) mg/dL Estim Creat Clear Calc Estimated GFR Random Glucose (60-115) mg/dL Calcium (8.4-10.2) mg/dL Magnesium (1.6-2.6) mg/dL Total Bilirubin (0.0-1.0) mg/dL AST (5-37) U/L ALT (0-40) U/L Alkaline Phosphatase (39-117) U/L Total Protein (6.5-8.0) g/dL Albumin (3.5-5.0) g/dL Urine Color Urine Appearance Urine pH (5.0-9.0) Ur Specific [place] (1.005-1.025) Urine Protein (Neg-Trace) mg/dL Urine Glucose (UA) (Negative) mg/dL Urine Ketones (Negative) mg/dL Urine Blood (Negative) Urine Nitrite (Negative) Ur Leukocyte Esterase (Negative) Urine RBC (0-2) /HPF Urine WBC (0-5) /HPF Ur Squamous Epith Cells (0-2) /HPF Urine Bacteria (None Seen) Hyaline Casts (0-2) /LPF Salicylates (15-30) mg/dL Urine Opiates Screen Not Detected (Not Detect) Urine Fentanyl Screen Not Detected (Not Detect) Acetaminophen (<30) mcg/mL Ur Barbiturates Screen Not Detected (Not Detect) Ur Phencyclidine Scrn Not Detected (Not Detect) Ur Amphetamines Screen Not Detected (Not Detect) U Benzodiazepines Scrn Not Detected (Not Detect) Urine Cocaine Screen Not Detected (Not Detect) U Marijuana (THC) Screen POSITIVE H (Not Detect) Ethyl Alcohol mg/dL <PETEY Jefferson - Last Filed: 12/07/22 20:24> Lab Results 12/07/22 12/07/22 12/08/22 Range/Units 22:21 22:21 05:26 WBC 6.4 (4.8-10.8) X10*3/uL RBC 4.68 (4.60-5.80) X10*6/uL Hgb 13.8 L (14.0-18.0) g/dl Hct 41.8 L (42.0-52.0) % MCV 89.3 (80.0-98.0) fL MCH 29.5 (27.0-33.0) pg MCHC 33.0 (31.0-36.0) g/dl RDW 13.8 (11.0-16.0) % Plt Count 166 (160-400) X10*3/uL MPV 10.0 (9.4-12.4) fL Immature Gran % (Auto) 0.2 (0.0-0.4) % Neut % (Auto) 39.5 L (45-73) % Lymph % (Auto) 47.7 H (20-40) % [place] % (Auto) 10.6 (2-11) % Eos % (Auto) 1.2 (0-4) % Baso % (Auto) 0.8 (0-2) % Lymph # (Auto) 3.1 (1.2-4.9) X10*3/uL [place] # (Auto) 0.7 (0.1-1.2) X10*3/uL Eos # (Auto) 0.1 (0.0-0.4) X10*3/uL Baso # (Auto) 0.1 (0.0-0.2) X10*3/uL Abs Immat Gran (auto) 0.01 (0.00-0.03) X10*3/uL Absolute Neuts (auto) 2.5 (2.0-8.3) x10*3/uL Absolute Nucleated RBC 0.000 (0.0-0.012) X10*3/uL Nucleated RBC % (auto) 0.0 (0.0-0.2) /100WBC Sodium 143 (135-145) mmol/L Potassium 3.7 (3.3-5.1) mmol/L Chloride 104 (96-108) mmol/L Carbon Dioxide 27 (22-29) mmol/L Anion Gap 16 (12-20) BUN 8 L (9-16) mg/dL Creatinine 0.66 (0.5-1.4) mg/dL Estim Creat Clear Calc 125.9 Estimated GFR > 60 Random Glucose 87 (60-115) mg/dL Calcium 8.6 (8.4-10.2) mg/dL Magnesium 1.6 (1.6-2.6) mg/dL Total Bilirubin 0.5 (0.0-1.0) mg/dL AST 31 (5-37) U/L ALT 17 (0-40) U/L Alkaline Phosphatase 76 (39-117) U/L Total Protein 6.2 L (6.5-8.0) g/dL Albumin 4.1 (3.5-5.0) g/dL Urine Color Yellow Urine Appearance Clear Urine pH 6.0 (5.0-9.0) Ur Specific [place] 1.015 (1.005-1.025) Urine Protein 30 (1+) H (Neg-Trace) mg/dL Urine Glucose (UA) Negative (Negative) mg/dL Urine Ketones Trace (Negative) mg/dL Urine Blood Negative (Negative) Urine Nitrite Negative (Negative) Ur Leukocyte Esterase Negative (Negative) Urine RBC 0-2 (0-2) /HPF Urine WBC 0-5 (0-5) /HPF Ur Squamous Epith Cells 0-2 (0-2) /HPF Urine Bacteria None Seen (None Seen) Hyaline Casts 3-5 (0-2) /LPF Salicylates < 5.0 L (15-30) mg/dL Urine Opiates Screen (Not Detect) Urine Fentanyl Screen (Not Detect) Acetaminophen < 17 (<30) mcg/mL Ur Barbiturates Screen (Not Detect) Ur Phencyclidine Scrn (Not Detect) Ur Amphetamines Screen (Not Detect) U Benzodiazepines Scrn (Not Detect) Urine Cocaine Screen (Not Detect) U Marijuana (THC) Screen (Not Detect) Ethyl Alcohol 242 mg/dL 12/08/22 Range/Units 05:26 WBC (4.8-10.8) X10*3/uL RBC (4.60-5.80) X10*6/uL Hgb (14.0-18.0) g/dl Hct (42.0-52.0) % MCV (80.0-98.0) fL MCH (27.0-33.0) pg MCHC (31.0-36.0) g/dl RDW (11.0-16.0) % Plt Count (160-400) X10*3/uL MPV (9.4-12.4) fL Immature Gran % (Auto) (0.0-0.4) % Neut % (Auto) (45-73) % Lymph % (Auto) (20-40) % [place] % (Auto) (2-11) % Eos % (Auto) (0-4) % Baso % (Auto) (0-2) % Lymph # (Auto) (1.2-4.9) X10*3/uL [place] # (Auto) (0.1-1.2) X10*3/uL Eos # (Auto) (0.0-0.4) X10*3/uL Baso # (Auto) (0.0-0.2) X10*3/uL Abs Immat Gran (auto) (0.00-0.03) X10*3/uL Absolute Neuts (auto) (2.0-8.3) x10*3/uL Absolute Nucleated RBC (0.0-0.012) X10*3/uL Nucleated RBC % (auto) (0.0-0.2) /100WBC Sodium (135-145) mmol/L Potassium (3.3-5.1) mmol/L Chloride (96-108) mmol/L Carbon Dioxide (22-29) mmol/L Anion Gap (12-20) BUN (9-16) mg/dL Creatinine (0.5-1.4) mg/dL Estim Creat Clear Calc Estimated GFR Random Glucose (60-115) mg/dL Calcium (8.4-10.2) mg/dL Magnesium (1.6-2.6) mg/dL Total Bilirubin (0.0-1.0) mg/dL AST (5-37) U/L ALT (0-40) U/L Alkaline Phosphatase (39-117) U/L Total Protein (6.5-8.0) g/dL Albumin (3.5-5.0) g/dL Urine Color Urine Appearance Urine pH (5.0-9.0) Ur Specific [place] (1.005-1.025) Urine Protein (Neg-Trace) mg/dL Urine Glucose (UA) (Negative) mg/dL Urine Ketones (Negative) mg/dL Urine Blood (Negative) Urine Nitrite (Negative) Ur Leukocyte Esterase (Negative) Urine RBC (0-2) /HPF Urine WBC (0-5) /HPF Ur Squamous Epith Cells (0-2) /HPF Urine Bacteria (None Seen) Hyaline Casts (0-2) /LPF Salicylates (15-30) mg/dL Urine Opiates Screen Not Detected (Not Detect) Urine Fentanyl Screen Not Detected (Not Detect) Acetaminophen (<30) mcg/mL Ur Barbiturates Screen Not Detected (Not Detect) Ur Phencyclidine Scrn Not Detected (Not Detect) Ur Amphetamines Screen Not Detected (Not Detect) U Benzodiazepines Scrn Not Detected (Not Detect) Urine Cocaine Screen Not Detected (Not Detect) U Marijuana (THC) Screen POSITIVE H (Not Detect) Ethyl Alcohol mg/dL <Ayush Thakkar MD - Last Filed: 12/08/22 06:32> Discharge Plan Discharge Clinical Impression: Alcohol abuse <PETEY Jefferson - Last Filed: 12/07/22 20:24> Patient Disposition: Home, Self-Care <PETEY Jefferson - Last Filed: 12/07/22 20:24> Instructions: Abuse of Alcohol (ED) <PETEY Jefferson - Last Filed: 12/07/22 20:24> Additional Instructions: Follow up with detox <PETEY Jefferson - Last Filed: 12/07/22 20:24> Prescriptions: No Action levetiracetam 1,000 mg tablet 1 tab PO BID cefpodoxime 100 mg tablet 100 mg PO BID Qty: 14 0RF Rx Instructions: must administer with a meal/food <PETEY Jefferson - Last Filed: 12/07/22 20:24>
[2022-12-07 22:24] VITALS: BP 176/92; PULSE 92; RESP 15; O2SAT 97
[2022-12-07 22:24] LABS: MANUAL DIFF FLAG NO
[2022-12-07 22:26] LABS: Basophils Absolute Auto 0.1 X10*3/uL (0.0-0.2); Basophils Percent Auto 0.8 % (0-2); Eosinophils Absolute Auto 0.1 X10*3/uL (0.0-0.4); Eosinophils Percent Auto 1.2 % (0-4); Hematocrit 41.8 % (42.0-52.0); Hemoglobin 13.8 g/dl (14.0-18.0); Imm Gran Abs Auto 0.01 X10*3/uL (0.00-0.03); Imm Gran Pct Auto 0.2 % (0.0-0.4); Lymphocytes Absolute Auto 3.1 X10*3/uL (1.2-4.9); Lymphocytes Percent Auto 47.7 % (20-40); Mean Corpuscular Hemoglobin 29.5 pg (27.0-33.0); Mean Corpuscular Volume 89.3 fL (80.0-98.0); Monocytes Absolute Auto 0.7 X10*3/uL (0.1-1.2); Monocytes Percent Auto 10.6 % (2-11); Neutrophils Absolute Auto 2.5 x10*3/uL (2.0-8.3); Neutrophils Percent Auto 39.5 % (45-73); Platelet Count 166 X10*3/uL (160-400); Red Blood Count 4.68 X10*6/uL (4.60-5.80); Red Cell Distribution Width 13.8 % (11.0-16.0); White Blood Count 6.4 X10*3/uL (4.8-10.8)
[2022-12-07] MEDS: levETIRAcetam 1,000 MG TABLET 1000 MG PO (22:47)
[2022-12-07 22:50] LABS: Acetaminophen LAB < 17 mcg/mL (<30); Alanine Aminotransferase 17 U/L (0-40); Albumin Level 4.1 g/dL (3.5-5.0); Alkaline Phosphatase 76 U/L (39-117); Anion Gap 16 (12-20); Aspartate Amino Transferase 31 U/L (5-37); Bilirubin Total 0.5 mg/dL (0.0-1.0); Blood Urea Nitrogen 8 mg/dL (9-16); Calcium 8.6 mg/dL (8.4-10.2); Carbon Dioxide 27 mmol/L (22-29); Chloride 104 mmol/L (96-108); Creatinine Clr Calc Pharmacy 125.9; Estimated Glomerular Filt Rate > 60; Ethanol 242 mg/dL; Glucose Random 87 mg/dL (60-115); Magnesium 1.6 mg/dL (1.6-2.6); Potassium 3.7 mmol/L (3.3-5.1); Salicylate < 5.0 mg/dL (15-30); Sodium 143 mmol/L (135-145); Total Protein 6.2 g/dL (6.5-8.0)
--- NOTE | 2022-12-07 23:04 | PC.NURSE ---
Patient refused most of nursing assessment noting he did not want to answer anymore questions. Patient reported he cannot recall if he took his seizure medications today. This nurse administered Keppra per MAR.
--- NOTE | 2022-12-07 23:08 | PC.NURSE ---
Unequal dilation of left pupil noted by this RN during assessment. Dr. Sebastian made aware. No new orders at this time.
[2022-12-08 03:28] VITALS: BP 117/64; PULSE 86; RESP 16; O2SAT 92
[2022-12-08 05:23] VITALS: BP 98/59; PULSE 95; RESP 16; O2SAT 93
[2022-12-08 05:33] LABS: Appearance Urine Clear; Color Urine Yellow; Glucose Urine UA Negative (Negative); Leukocyte Esterase Urine Negative (Negative); Nitrite Urine Negative (Negative); Specific Gravity - Urine 1.015 (1.005-1.025); UMIC TRIGGER UACC YES; Urine Blood Negative (Negative); Urine Ketones Trace mg/dL (Negative); Urine Protein 30 (1+) mg/dL (Neg-Trace)
[2022-12-08 05:41] LABS: Bacteria Urine None Seen (None Seen); RBC Urine 0-2 /HPF (0-2); Squamous Epithelial Cell Urine 0-2 /HPF (0-2); WBC Urine 0-5 /HPF (0-5)
[2022-12-08 05:43] LABS: Amphetamine Screen Urine Not Detected (Not Detect); Barbiturates, Urine Not Detected (Not Detect); Benzodiazepines Screen Urine Not Detected (Not Detect); Cannabinoid Screen Urine POSITIVE (Not Detect); Cocaine Screen Urine Not Detected (Not Detect); Fentanyl, urine Not Detected (Not Detect); Opiate Screen Urine Not Detected (Not Detect); Phencyclidine Screen Urine Not Detected (Not Detect)
--- NOTE | 2022-12-08 06:27 | PC.NURSE ---
CIWA scale score of 11 at current assessment. Patient is not interested in detox, would like to be discharged. Provider notified.
[2022-12-08] MEDS: LORazepam 1 MG TABLET 2 MG PO (06:33)
== END 2022-12-08 06:54 | disposition home or self-care (01) ==
PROVIDERS: Physician Assistant Medical; Emergency Provider Internal Medicine
DX: F10.10 Alcohol abuse, uncomplicated (principal); Y90.8 Blood alcohol level of 240 mg/100 ml or more; F12.90 Cannabis use, unspecified, uncomplicated; Z79.899 Other long term (current) drug therapy
CPT/HCPCS: 36415; 80053; 80143; 80179; 80307; 81001; 82077; 83735; 85025; 99284

== ENCOUNTER 2022-12-09 21:56 | Emergency (ER) | payer MEDICAID, SELFPAY ==
--- NOTE | ~2022-12-09 | XR_ITS ---
EXAMINATION: XR CHEST CLINICAL INFORMATION: Chest pain COMPARISON: 12/06/2022 TECHNIQUE: Frontal view of the chest was obtained. FINDINGS: No significant abnormality is noted involving the heart, lungs, mediastinum, bony thorax or soft tissues. Some minimal bibasilar atelectasis is present, unchanged from 12/06/2022 XR/XR chest 1V IMPRESSION: No acute intrathoracic disease.
--- NOTE | ~2022-12-09 | CT_ITS ---
EXAMINATION: CT HEAD WITHOUT CONTRAST CLINICAL INFORMATION: Altered mental status COMPARISON: 12/06/2022 TECHNIQUE: Contiguous axial imaging was performed from the skull base to vertex without intravenous administration of contrast. This CT examination was performed using dose optimization techniques as appropriate, variously including the following: *Automated exposure control *Adjustment of mA and/or kV according to patient size (this includes techniques or standardized protocols for targeted exams where dose is matched to indication/reason for exam; i.e. extremities or head) *Use of iterative reconstruction technique DLP: 702 mGy-cm FINDINGS: There is no evidence of acute intracranial hemorrhage or territorial infarction. No abnormal mass effect or midline shift is seen. Todd to white matter differentiation is well preserved. No extra-axial fluid collections are identified. No hydrocephalus. Proportional prominence of the ventricles and sulcal spaces is consistent with mild volume loss. Patchy periventricular and deep white matter hypoattenuation is consistent with mild small vessel ischemic changes. No acute osseous or soft tissue abnormality. The mastoid air cells and visualized portions of the paranasal sinuses are well aerated. CT/CT head/brain wo IV con IMPRESSION: No acute intracranial pathology.
[2022-12-09 22:22] VITALS: BP 144/94; PULSE 82; RESP 18; TEMP 36.4; O2SAT 95
--- NOTE | 2022-12-09 22:46 | PC.NURSE ---
pt aox4, pt unwilling to answer some questions c/o unwitnessed seizure and lower back pain
[2022-12-09 22:58] VITALS: BP 160/92; PULSE 79; O2SAT 98; BMI 26.4
--- NOTE | 2022-12-09 22:58 | ECG_ITS ---
Test Reason : ?SEIZURE Blood Pressure : / mmHG Vent. Rate : 077 BPM Atrial Rate : 077 BPM P-R Int : 128 ms QRS Dur : 080 ms QT Int : 400 ms P-R-T Axes : 053 056 059 degrees QTc Int : 452 ms Normal sinus rhythm Normal ECG When compared with ECG of 06-DEC-2022 01:21, No significant change was found Referred By: Rafia Wahl Electronically Signed By:Jimmy Jose
--- NOTE | 2022-12-09 23:14 | ED.SEIZURE ---
HPI - Seizure General Chief Complaint: Seizure Stated Complaint: Seizure Time Seen by Provider: 12/09/22 21:59 History of Present Illness HPI Narrative: Patient is a 57-year-old male with a history of seizures. Presented today with having a possible seizure at home. He called EMS. Patient was sent in for further evaluation. He is unable to recall the events. He admits to drinking alcohol. No weakness in any extremity. Has a history of being on Keppra 1000 mg twice a day. Claims he took his medicine this morning I did not take it this evening. Once no vomiting. No diaphoresis. No any urinary incontinence. Patient does not recall what exactly happened. Thinks he had a seizure. Seizure History: Yes Place: Outdoors Related Data Home Medications Medication Instructions Recorded Confirmed levetiracetam 1,000 mg tablet 1 tab PO BID 05/10/21 05/10/21 Previous Rx's Medication Instructions Recorded cefpodoxime 100 mg tablet 100 mg PO BID #14 tabs 05/11/21 Allergies Allergy/AdvReac Type Severity Reaction Status Date / Time aspirin [ASPIRIN] Allergy Unknown STOMACH Verified 12/07/22 20:32 UPSET ibuprofen [IBUPROFEN] Allergy Unknown STOMACH Verified 12/07/22 20:32 UPSET Review of Systems Review of Systems: No fever no chills no chest pain or shortness of breath Yes all other systems are reviewed and are negative [facility] Past Medical History Attestation statement: The following information was validated with the patient. Medical History Alcohol abuse Back pain Seizures Social History Social History Alcohol intake: current Alcohol intake frequency: a few times a week Alcohol type: beer and hard liquor Patient Tobacco Use Status: Never used Tobacco Smoked in Last 30 Days: Yes Substance Use Type: Marijuana Advance Directives: Yes Advance Directives on File: Yes Advance Directives Date on File: 12/06/22 Physical Exam Vital Signs: Vital Signs: Last Vital Signs Temp 97.3 F 12/10/22 00:01 Pulse 85 12/09/22 23:40 Resp 19 12/09/22 23:40 BP 116/74 12/09/22 23:40 Pulse Ox 98 12/09/22 23:40 O2 Del Method 12/09/22 23:40 Appearance: Alert. Oriented X3. No acute distress. Eyes: Pupils equal, round and reactive to light. ENT: Pharynx normal. Neck: Normal inspection. Neck supple. No lymph nodes noted. No crepitus CVS: Normal heart rate and rhythm. Pulses normal. Normal S1 and S2 Respiratory: No respiratory distress. Breath sounds normal. No Wheezing. No rales Abdomen: Soft and nontender. No rigidity. No distention. good BS x4 Skin: Skin warm and dry. Normal skin color. Normal skin turgor. Extremities: No lower extremity edema. Neurovascular intact to all extremities. No Lacerations. No Rash Neuro: Oriented X 3. No motor deficit. No sensory deficit. Moving all extermities. No slurred speech Medical Decision Making Medical Decision Making MDM Narrative: Patient is 57 years old presented today with having a possible seizure. Patient contacted EMS stating that he had a seizure episode. History of EtOH in the past. Patient's sugar was normal no evidence for hypoglycemia. Patient stated that he might have missed tonight's dose of Keppra but otherwise has been taking his medication. The frequency of seizure is approximately the same about every month. Patient is not driving. Lives at home. He contacted EMS himself. His alcohol tonight was 30. Likely not the cause of patient's problem tonight. Has a history of seizure likely a breakthrough seizure. Electrolytes were normal. CT scan of the head were done grossly no evidence of bleeding. No evidence of fracture. Patient is in stable condition. Will ask patient to take his medication. Follow up closely with Neurology on an outpatient basis. In stable condition. Differential Diagnosis Differential Diagnoses: The differential diagnosis associated with the presentation includes Breakthrough seizure, bleed, fracture, electrolyte abnormality Lab Data [facility] Lab Attestation statement: I reviewed the patient's lab results. 12/09/22 23:49 12/09/22 23:49 Labs: Lab Results 12/09/22 12/09/22 Range/Units 23:49 23:49 WBC 6.1 (4.8-10.8) X10*3/uL RBC 4.72 (4.60-5.80) X10*6/uL Hgb 14.1 (14.0-18.0) g/dl Hct 42.9 (42.0-52.0) % MCV 90.9 (80.0-98.0) fL MCH 29.9 (27.0-33.0) pg MCHC 32.9 (31.0-36.0) g/dl RDW 13.8 (11.0-16.0) % Plt Count 129 L (160-400) X10*3/uL MPV 11.1 (9.4-12.4) fL Immature Gran % (Auto) 0.2 (0.0-0.4) % Neut % (Auto) 51.9 (45-73) % Lymph % (Auto) 34.5 (20-40) % [place] % (Auto) 11.1 H (2-11) % Eos % (Auto) 1.5 (0-4) % Baso % (Auto) 0.8 (0-2) % Lymph # (Auto) 2.1 (1.2-4.9) X10*3/uL [place] # (Auto) 0.7 (0.1-1.2) X10*3/uL Eos # (Auto) 0.1 (0.0-0.4) X10*3/uL Baso # (Auto) 0.1 (0.0-0.2) X10*3/uL Abs Immat Gran (auto) 0.01 (0.00-0.03) X10*3/uL Absolute Neuts (auto) 3.2 (2.0-8.3) x10*3/uL Absolute Nucleated RBC 0.000 (0.0-0.012) X10*3/uL Nucleated RBC % (auto) 0.0 (0.0-0.2) /100WBC Sodium 141 (135-145) mmol/L Potassium 3.9 (3.3-5.1) mmol/L Chloride 103 (96-108) mmol/L Carbon Dioxide 25 (22-29) mmol/L Anion Gap 17 (12-20) BUN 8 L (9-16) mg/dL Creatinine 0.60 (0.5-1.4) mg/dL Estim Creat Clear Calc TNP Estimated GFR > 60 Random Glucose 90 (60-115) mg/dL Calcium 8.8 (8.4-10.2) mg/dL Total Bilirubin 0.8 (0.0-1.0) mg/dL Direct Bilirubin 0.2 (0.0-0.5) mg/dL AST 35 (5-37) U/L ALT 22 (0-40) U/L Alkaline Phosphatase 78 (39-117) U/L Total Protein 6.4 L (6.5-8.0) g/dL Albumin 4.1 (3.5-5.0) g/dL Ethyl Alcohol 30 mg/dL Independent Interpretation I performed an independent interpretation of an: EKG Interpretation: My interpretation patient's EKG showed a heart rate of 75 [place] QRS QT within normal limits there is no acute ST segment elevation Radiology Impression Discussion of test interpretation with radiology: I have reviewed the radiologist's reading. Radiologist Impression: CT scan of the head was negative Independent Historian Clinical information obtained from an independent historian. History obtained from or confirmed by: EMS Chronic Conditions History of seizure, history of EtOH Social Determinants Patient?s care significantly limited by Social Determinants of Health including: Inadequate housing and Low income Discharge Plan Discharge Clinical Impression: Epileptic seizure Patient Disposition: Home, Self-Care Instructions: Recurrent Seizures in Adults (ED) Prescriptions: No Action levetiracetam 1,000 mg tablet 1 tab PO BID cefpodoxime 100 mg tablet 100 mg PO BID Qty: 14 0RF Rx Instructions: must administer with a meal/food Referrals: PhysicianAnsley [Primary Care Provider] - 12/12/22
[2022-12-09 23:40] VITALS: BP 116/74; PULSE 85; RESP 19; TEMP 36.4; O2SAT 98
[2022-12-09 23:54] LABS: MANUAL DIFF FLAG NO
[2022-12-09 23:58] LABS: Basophils Absolute Auto 0.1 X10*3/uL (0.0-0.2); Basophils Percent Auto 0.8 % (0-2); Eosinophils Absolute Auto 0.1 X10*3/uL (0.0-0.4); Eosinophils Percent Auto 1.5 % (0-4); Hematocrit 42.9 % (42.0-52.0); Hemoglobin 14.1 g/dl (14.0-18.0); Imm Gran Abs Auto 0.01 X10*3/uL (0.00-0.03); Imm Gran Pct Auto 0.2 % (0.0-0.4); Lymphocytes Absolute Auto 2.1 X10*3/uL (1.2-4.9); Lymphocytes Percent Auto 34.5 % (20-40); Mean Corpuscular HGB Conc 32.9 g/dl (31.0-36.0); Mean Corpuscular Hemoglobin 29.9 pg (27.0-33.0); Mean Corpuscular Volume 90.9 fL (80.0-98.0); Mean Platelet Volume 11.1 fL (9.4-12.4); Monocytes Absolute Auto 0.7 X10*3/uL (0.1-1.2); Monocytes Percent Auto 11.1 % (2-11); Neutrophils Absolute Auto 3.2 x10*3/uL (2.0-8.3); Neutrophils Percent Auto 51.9 % (45-73); Platelet Count 129 X10*3/uL (160-400); Red Blood Count 4.72 X10*6/uL (4.60-5.80); Red Cell Distribution Width 13.8 % (11.0-16.0); White Blood Count 6.1 X10*3/uL (4.8-10.8)
[2022-12-10 00:01] VITALS: TEMP 36.3
--- NOTE | 2022-12-10 00:01 | MHC.EDTECH ---
labs drawn, vitals done. pt cleaned and changed out of wet clothing. warm blankets provided, pt resting comfortably at this time.
[2022-12-10 00:11] LABS: Alanine Aminotransferase 22 U/L (0-40); Albumin Level 4.1 g/dL (3.5-5.0); Alkaline Phosphatase 78 U/L (39-117); Anion Gap 17 (12-20); Aspartate Amino Transferase 35 U/L (5-37); Bilirubin Direct 0.2 mg/dL (0.0-0.5); Bilirubin Total 0.8 mg/dL (0.0-1.0); Blood Urea Nitrogen 8 mg/dL (9-16); Calcium 8.8 mg/dL (8.4-10.2); Carbon Dioxide 25 mmol/L (22-29); Chloride 103 mmol/L (96-108); Estimated Glomerular Filt Rate > 60; Ethanol 30 mg/dL; Glucose Random 90 mg/dL (60-115); Potassium 3.9 mmol/L (3.3-5.1); Sodium 141 mmol/L (135-145); Total Protein 6.4 g/dL (6.5-8.0)
--- NOTE | 2022-12-10 01:39 | PC.NURSE ---
Discharge instructions given/explained to pt, ambulates safely/ind, no apparent distress
[2022-12-10] MEDS: levETIRAcetam 1,000 MG TABLET 1000 MG PO (01:45)
== END 2022-12-10 01:48 | disposition home or self-care (01) ==
PROVIDERS: Emergency Provider Emergency Medicine Emergency Medical Services
DX: R56.9 Unspecified convulsions (principal); R07.89 Other chest pain; R94.31 Abnormal electrocardiogram [ECG] [EKG]; Z79.899 Other long term (current) drug therapy
CPT/HCPCS: 36415; 70450; 71045; 80048; 80076; 82077; 85025; 93005; 99284; 99285

== ENCOUNTER 2023-11-09 11:19 | Emergency (ER) | payer MEDICAID, SELFPAY ==
--- NOTE | ~2023-11-09 | CT_ITS ---
EXAMINATION: CT HEAD WITHOUT CONTRAST CT CERVICAL SPINE WITHOUT CONTRAST CLINICAL INFORMATION: Fall with head strike. Seizure. COMPARISON: None TECHNIQUE: CT of the head and cervical spine were performed without intravenous contrast. Multiplanar reformats were rendered and reviewed. This CT examination was performed using dose optimization techniques as appropriate, variously including the following: *Automated exposure control *Adjustment of mA and/or kV according to patient size (this includes techniques or standardized protocols for targeted exams where dose is matched to indication/reason for exam; i.e. extremities or head) *Use of iterative reconstruction technique DLP: 1087 mGy-cm. FINDINGS: CT head: There is no intracranial hemorrhage, extra-axial collection, mass effect, or territorial infarction. The ventricles are normal in size without hydrocephalus. The calvarium is intact without fracture. The visualized paranasal sinuses and mastoid air cells are clear. CT cervical spine: No fractures seen. The vertebral bodies demonstrate normal heights. There is chronic degenerative retrolisthesis of C3 on C4 and C4 on C5. There is multilevel intervertebral disc height loss most advanced at C3-C4 and C4-C5. There is advanced facet arthropathy on the left at C7-T1. Spinal canal stenosis appears moderate to severe at C4-C5 and C5-C6. Multilevel high-grade neural foraminal stenosis is also demonstrated. Bullous changes are seen at the lung apices. Dense atheromatous calcifications are noted within the carotid bifurcations. CT/CT cervical spine wo IV con IMPRESSION: CT HEAD: No acute intracranial abnormality. CT CERVICAL SPINE: No cervical spine fracture or traumatic malalignment. Multilevel degenerative spondylotic changes. Spinal canal stenosis appears moderate to severe at C4-C5 and C5-C6. Multilevel high-grade neural foraminal stenosis.
--- NOTE | ~2023-11-09 | CT_ITS ---
EXAMINATION: CT HEAD WITHOUT CONTRAST CT CERVICAL SPINE WITHOUT CONTRAST CLINICAL INFORMATION: Fall with head strike. Seizure. COMPARISON: None TECHNIQUE: CT of the head and cervical spine were performed without intravenous contrast. Multiplanar reformats were rendered and reviewed. This CT examination was performed using dose optimization techniques as appropriate, variously including the following: *Automated exposure control *Adjustment of mA and/or kV according to patient size (this includes techniques or standardized protocols for targeted exams where dose is matched to indication/reason for exam; i.e. extremities or head) *Use of iterative reconstruction technique DLP: 1087 mGy-cm. FINDINGS: CT head: There is no intracranial hemorrhage, extra-axial collection, mass effect, or territorial infarction. The ventricles are normal in size without hydrocephalus. The calvarium is intact without fracture. The visualized paranasal sinuses and mastoid air cells are clear. CT cervical spine: No fractures seen. The vertebral bodies demonstrate normal heights. There is chronic degenerative retrolisthesis of C3 on C4 and C4 on C5. There is multilevel intervertebral disc height loss most advanced at C3-C4 and C4-C5. There is advanced facet arthropathy on the left at C7-T1. Spinal canal stenosis appears moderate to severe at C4-C5 and C5-C6. Multilevel high-grade neural foraminal stenosis is also demonstrated. Bullous changes are seen at the lung apices. Dense atheromatous calcifications are noted within the carotid bifurcations. CT/CT head/brain wo IV con IMPRESSION: CT HEAD: No acute intracranial abnormality. CT CERVICAL SPINE: No cervical spine fracture or traumatic malalignment. Multilevel degenerative spondylotic changes. Spinal canal stenosis appears moderate to severe at C4-C5 and C5-C6. Multilevel high-grade neural foraminal stenosis.
[2023-11-09 11:25] VITALS: BP 139/75; BP 144/76; PULSE 106; PULSE 90; RESP 18; TEMP 36.8; O2SAT 94; BMI 23.1
--- NOTE | 2023-11-09 11:34 | ED_ITS ---
HPI - General Adult General Chief complaint: Seizure Stated complaint: ETOH Time Seen by Provider: 11/09/23 11:26 Source: patient, EMS and RN notes reviewed Mode of arrival: EMS Limitations: no limitations History of Present Illness HPI narrative: Patient is a 58-year-old male with history of seizures, alcohol abuse presenting to the emergency department via EMS after bystander called 911 stating patient had a seizure ouside. Patient reports he last drank alcohol yesterday, states has not been taking his keppra as prescribed but states that he took it yesterday. He arrives in a C-collar from EMS. He denies headache, blurred vision, double vision, neck or back pain. Denies nausea or vomiting. MD complaint: seizure Onset (ago): minute(s) Location: head and face Treatments prior to arrival: other Related Data Home Medications Medication Instructions Recorded Confirmed levetiracetam 1,000 mg tablet 1 tab PO BID 05/10/21 05/10/21 Previous Rx's Medication Instructions Recorded cefpodoxime 100 mg tablet 100 mg PO BID #14 tabs 05/11/21 Allergies Allergy/AdvReac Type Severity Reaction Status Date / Time aspirin [ASPIRIN] Allergy Unknown STOMACH Verified 12/07/22 20:32 UPSET ibuprofen [IBUPROFEN] Allergy Unknown STOMACH Verified 12/07/22 20:32 UPSET Review of Systems 2 Review of Systems: As per HPI. [facility] Past Medical History Medical History Alcohol abuse Back pain Seizures Social History Social History Alcohol intake: current Alcohol intake frequency: a few times a week Alcohol type: beer and hard liquor Patient Tobacco Use Status: Never used Tobacco Substance Use Type: Marijuana Advance Directives: Yes Advance Directives on File: Yes Advance Directives Date on File: 12/06/22 Physical Exam ED Vital Signs: Vital Signs - 24 hr 11/09/23 11:25 11/09/23 14:12 Temperature 98.2 F Pulse Rate 106 H 83 Respiratory Rate 18 18 Blood Pressure 139/75 142/87 H Pulse Oximetry 94 95 Oxygen Delivery Method Room Air Room Air BMI result Body Mass Index 23.1 Vital signs have been reviewed and appear to be correct. Blood pressure normal. Heart rate slightly tachycardic. Respiratory rate normal. Temperature normal. Oxygen saturation normal. Const General: cooperative, no acute distress, well developed, alert and awake Nutritional Appearance: average body habitus Orientation/consciousness: patient oriented x3 Limitations: no limitations [facility] Head: Yes No palpable skull fracture present, Yes normocephalic, Yes abrasion, No Johnston's sign, No raccoon eyes and No periorbital ecchymosis Head images: 2 1. contusion and abrasion Ears: hearing grossly normal bilaterally, TM's normal bilaterally and EAC's normal General nose exam: Normal external nose present, Normal nasal mucous membranes and turbinates present and Normal septum present Face and sinus: Yes normal facial exam Mouth: Normal oral and palatal mucosa present, lip normal and tongue normal Teeth and gingiva: dentition normal Throat: Yes posterior oropharynx normal and Yes uvula midline Eyes Pupils: Equal, round and reactive pupils present EOM: EOMs intact bilaterally Neck Neck: Yes normal visual inspection and Yes no meningeal signs Chest Chest palpation & inspection: normal inspection of the chest and normal palpation of entire chest wall Resp Effort & Inspection: normal respiratory effort Auscultation: clear to auscultation bilaterally Cardio Rate: regular rate Rhythm: regular rhythm Heart sounds: S1 normal heart sound present and S2 normal heart sound present GI Inspection: Yes normal to inspection Palpation (GI): Soft to palpation and nontender Auscultation: normoactive bowel sounds General: Yes no CVA tenderness Back/Spine/Pelvis Back: no CVA tenderness Cervical Spine: collar present Thoracic/Lumbar Spine: thoracic and lumbar spine normal to inspection, No thoracic spinal tenderness and No lumbar spinal tenderness Pelvis: no pain with anterior-posterior compression and no pain with lateral compression Skin Other: contusion and abrasion to left face/forehead, see [facility] General skin exam: elasticity normal and turgor normal Neuro General: patient oriented x3, tone normal, moves all extremities, Normal light touch and pain sensation, no meningeal signs, CN's II-XI intact bilaterally and deep tendon reflexes 2+ bilaterally Cranial nerves: Yes Equal, round and reactive pupils present Motor exam (neuro): 5/5 motor strength present throughout, Pronator motor function not present, Normal motor muscle tone present throughout and Motor abnormalities not present Sensory Exam: Normal double simultaneous stimulation for sensation Extrem General: Yes normal to inspection, Yes full ROM, Yes capillary refill normal and Yes no pedal edema Psych Appearance: grossly normal Mental Status: mental status grossly normal Speech and movement: Normal speech and movement present Affect: normal affect Attitude: cooperative Medications Administered Discontinued Medications Generic Name Dose Route Start Last Admin Trade Name Karyn PRN Reason Stop Dose Admin Levetiracetam 1,000 mg in 100 mls @ 400 mls/hr 11/09/23 11:30 11/09/23 12:25 Keppra IV 11/09/23 11:44 Infused ONCE ONE Infusion Medical Decision Making Medical Decision Making [facility] Narrative: Patient is a 58-year-old male with history of seizures, alcohol abuse presenting to the emergency department via EMS after bystander called 911 stating patient had a seizure ouside. On exam patient is awake, A+Ox3, mildly tachycardic, VS otherwise WNL, afebrile, normal neurological exam without focal deficits, physical exam findings as above. Given reported symptoms and physical exam findings, initial differential includes seizure, alcohol withdrawal, ICH, skull fracture, cervical vertebral fracture, electrolyte abnormality. Plan: IV keppra, CT head and c-spine, labs, urine drug screen Labs notable for no leukocytosis, chronic microcytic anemia, no significant electrolyte abnormalities, ethanol negative. No evidence of infection on urinalysis. Urine drug screen positive for marijuana. CT head and c-spine notable for no ICH, no acute fractures. My interpretation is in agreement with the radiologist's interpretation. Patient stating that he has an adequate supply of his keppra, but is sometimes not home to take it, advised patient to keep it with him so that he can take it as prescribed. Patient states that he does not drive, does not have a vehicle. Instructed patient to follow up with his neurologist. Return precautions discussed. Patient verbalized understanding of and agreement with plan. Differential Diagnosis Differential Diagnoses: The differential diagnosis associated with the presentation includes As per [facility]. Admission/Observation Consideration of admission/observation: Escalation of care including admission/observation considered Lab Data [facility] Lab Attestation statement: I reviewed the patient's lab results. As per [facility]. 11/09/23 12:07 11/09/23 12:07 Labs: Lab Results 11/09/23 11/09/23 Range/Units 12:07 14:16 WBC 5.5 (4.8-10.8) X10*3/uL RBC 4.27 L (4.60-5.80) X10*6/uL Hgb 13.2 L (14.0-18.0) g/dl Hct 39.3 L (42.0-52.0) % MCV 92.0 (80.0-98.0) fL MCH 30.9 (27.0-33.0) pg MCHC 33.6 (31.0-36.0) g/dl RDW 13.7 (11.0-16.0) % Plt Count 119 L (160-400) X10*3/uL MPV 10.7 (9.4-12.4) fL Immature Gran % (Auto) 0.4 (0.0-0.4) % Neut % (Auto) 68.3 (45-73) % Lymph % (Auto) 20.2 (20-40) % Luce % (Auto) 9.9 (2-11) % Eos % (Auto) 0.6 (0-4) % Baso % (Auto) 0.6 (0-2) % Lymph # (Auto) 1.1 L (1.2-4.9) X10*3/uL Luce # (Auto) 0.5 (0.1-1.2) X10*3/uL Eos # (Auto) 0.0 (0.0-0.4) X10*3/uL Baso # (Auto) 0.0 (0.0-0.2) X10*3/uL Abs Immat Gran (auto) 0.02 (0.00-0.03) X10*3/uL Absolute Neuts (auto) 3.7 (2.0-8.3) x10*3/uL Absolute Nucleated RBC 0.000 (0.0-0.012) X10*3/uL Nucleated RBC % (auto) 0.0 (0.0-0.2) /100WBC PT 11.5 (11.1-13.3) SEC INR 0.9 (0.9-1.1) Sodium 141 (135-145) mmol/L Potassium 4.4 (3.3-5.1) mmol/L Chloride 104 (96-108) mmol/L Carbon Dioxide 20 L (22-29) mmol/L Anion Gap 21 H (12-20) BUN 12 (9-16) mg/dL Creatinine 0.96 (0.5-1.4) mg/dL Estim Creat Clear Calc 90.3 Estimated GFR > 60 Random Glucose 81 (60-115) mg/dL Calcium 9.6 D (8.4-10.2) mg/dL Total Bilirubin 0.9 (0.0-1.0) mg/dL Direct Bilirubin 0.3 (0.0-0.5) mg/dL AST 37 (5-37) U/L ALT 19 (0-40) U/L Alkaline Phosphatase 53 (39-117) U/L Total Protein 6.9 (6.5-8.0) g/dL Albumin 4.2 (3.5-5.0) g/dL Urine Color Dark Yellow Urine Appearance Clear Urine pH 5.5 (5.0-9.0) Ur Specific [place] 1.025 (1.005-1.025) Urine Protein 100 (2+) H (Neg-Trace) mg/dL Urine Glucose (UA) Negative (Negative) mg/dL Urine Ketones 15 (Negative) mg/dL Urine Blood Negative (Negative) Urine Nitrite Negative (Negative) Ur Leukocyte Esterase Negative (Negative) Urine RBC 0-2 (0-2) /HPF Urine WBC 0-5 (0-5) /HPF Ur Squamous Epith Cells 0-2 (0-2) /HPF Urine Bacteria None Seen (None Seen) Hyaline Casts 0-2 (0-2) /LPF Urine Opiates Screen Not Detected (Not Detect) Urine Fentanyl Screen Not Detected (Not Detect) Ur Barbiturates Screen Not Detected (Not Detect) Ur Phencyclidine Scrn Not Detected (Not Detect) Ur Amphetamines Screen Not Detected (Not Detect) U Benzodiazepines Scrn Not Detected (Not Detect) Urine Cocaine Screen Not Detected (Not Detect) U Marijuana (THC) Screen POSITIVE H (Not Detect) Ethyl Alcohol < 10 mg/dL COVID-19 (FRANSICO) Negative (Negative) COVID-19 Clin Com See Note Influenza Type A (DOTTIE) Negative (Negative) Influenza Type B (DOTTIE) Negative (Negative) Influenza A & B Note See Note Independent Interpretation I performed an independent interpretation of an: CT Scan Interpretation: No evidence of ICH or acute fractures on CT head and C-spine Radiology Impression Discussion of test interpretation with radiology: I have reviewed the radiologist's reading. Radiologist Impression: CT/CT head/brain wo IV con IMPRESSION: CT HEAD: No acute intracranial abnormality. CT CERVICAL SPINE: No cervical spine fracture or traumatic malalignment. Multilevel degenerative spondylotic changes. Spinal canal stenosis appears moderate to severe at C4-C5 and C5-C6. Multilevel high-grade neural foraminal stenosis. External Record Review External record reviewed: Inpatient record, Office record and Outpatient record Prescription Management I considered prescription management with: Other (willing to prescribe keppra, patient stating he has adequate supply at home) Discharge Plan Discharge Clinical Impression: Seizure Patient Disposition: Home, Self-Care Instructions: Alcohol Withdrawal (DC), Recurrent Seizures in Adults (ED) Additional Instructions: You were evaluated in the emergency department today after seizure. Your evaluation did not show evidence of conditions requiring emergent medical treatment at this time. Please take your Keppra as prescribed, you were given a loading dose in the emergency department today. Please follow-up with your neurologist this week. Return to the emergency department if you have additional seizures, chest pain, shortness of breath, fevers or any other concerning symptoms. Prescriptions: No Action levetiracetam 1,000 mg tablet 1 tab PO BID cefpodoxime 100 mg tablet 100 mg PO BID Qty: 14 0RF Rx Instructions: must administer with a meal/food
[2023-11-09] MEDS: levETIRAcetam in NaCl (iso-os) 1,000 MG/100 ML PIGGYBACK 400 MG IV (12:10)
[2023-11-09 12:11] LABS: MANUAL DIFF FLAG NO
[2023-11-09 12:12] LABS: PLT CLUMP 1; SCAN SMEAR FLAG 1
[2023-11-09 12:14] LABS: Basophils Percent Auto 0.6 % (0-2); Eosinophils Percent Auto 0.6 % (0-4); Hematocrit 39.3 % (42.0-52.0); Hemoglobin 13.2 g/dl (14.0-18.0); Imm Gran Abs Auto 0.02 X10*3/uL (0.00-0.03); Imm Gran Pct Auto 0.4 % (0.0-0.4); Lymphocytes Absolute Auto 1.1 X10*3/uL (1.2-4.9); Lymphocytes Percent Auto 20.2 % (20-40); Mean Corpuscular HGB Conc 33.6 g/dl (31.0-36.0); Mean Corpuscular Hemoglobin 30.9 pg (27.0-33.0); Mean Platelet Volume 10.7 fL (9.4-12.4); Monocytes Absolute Auto 0.5 X10*3/uL (0.1-1.2); Monocytes Percent Auto 9.9 % (2-11); Neutrophils Absolute Auto 3.7 x10*3/uL (2.0-8.3); Neutrophils Percent Auto 68.3 % (45-73); Red Blood Count 4.27 X10*6/uL (4.60-5.80); Red Cell Distribution Width 13.7 % (11.0-16.0)
[2023-11-09 12:15] LABS: Platelet Count 119 X10*3/uL (160-400); White Blood Count 5.5 X10*3/uL (4.8-10.8)
[2023-11-09 12:17] LABS: INTERNATIONAL NORM RATIO 0.9 (0.9-1.1); Prothrombin Time 11.5 SEC (11.1-13.3)
[2023-11-09 12:29] LABS: Alanine Aminotransferase 19 U/L (0-40); Albumin Level 4.2 g/dL (3.5-5.0); Alkaline Phosphatase 53 U/L (39-117); Anion Gap 21 (12-20); Aspartate Amino Transferase 37 U/L (5-37); Bilirubin Direct 0.3 mg/dL (0.0-0.5); Bilirubin Total 0.9 mg/dL (0.0-1.0); Blood Urea Nitrogen 12 mg/dL (9-16); Calcium 9.6 mg/dL (8.4-10.2); Carbon Dioxide 20 mmol/L (22-29); Chloride 104 mmol/L (96-108); Creatinine Clr Calc Pharmacy 90.3; Estimated Glomerular Filt Rate > 60; Ethanol < 10 mg/dL; Glucose Random 81 mg/dL (60-115); Potassium 4.4 mmol/L (3.3-5.1); Sodium 141 mmol/L (135-145); Total Protein 6.9 g/dL (6.5-8.0)
[2023-11-09 12:32] LABS: COVID-19 Test Negative (Negative); IDNOW Serial# 9DB6401D
[2023-11-09 12:34] LABS: IDNOW Serial# 58CA691E; Influenza A Negative (Negative); Influenza B2 Negative (Negative)
[2023-11-09 14:12] VITALS: BP 142/87; PULSE 83; RESP 18; O2SAT 95
[2023-11-09 14:24] LABS: Appearance Urine Clear; Color Urine Dark Yellow; Glucose Urine UA Negative (Negative); Leukocyte Esterase Urine Negative (Negative); Nitrite Urine Negative (Negative); PH 5.5 (5.0-9.0); Specific Gravity - Urine 1.025 (1.005-1.025); UMIC TRIGGER UACC YES; Urine Blood Negative (Negative); Urine Ketones 15 mg/dL (Negative); Urine Protein 100 (2+) mg/dL (Neg-Trace)
[2023-11-09 14:30] LABS: Amphetamine Screen Urine Not Detected (Not Detect); Barbiturates, Urine Not Detected (Not Detect); Benzodiazepines Screen Urine Not Detected (Not Detect); Cannabinoid Screen Urine POSITIVE (Not Detect); Cocaine Screen Urine Not Detected (Not Detect); Fentanyl, urine Not Detected (Not Detect); Opiate Screen Urine Not Detected (Not Detect); Phencyclidine Screen Urine Not Detected (Not Detect)
[2023-11-09 14:36] LABS: Bacteria Urine None Seen (None Seen); Hyaline Casts Urine 0-2 /LPF (0-2); RBC Urine 0-2 /HPF (0-2); Squamous Epithelial Cell Urine 0-2 /HPF (0-2); WBC Urine 0-5 /HPF (0-5)
[2023-11-12 06:33] LABS: Levetiracetam Keppra <2.0 mcg/mL (6.0-46.0)
== END 2023-11-09 16:17 | disposition home or self-care (01) ==
PROVIDERS: Registered Nurse Emergency; Emergency Provider Emergency Medicine Emergency Medical Services
DX: R56.9 Unspecified convulsions (principal); M54.2 Cervicalgia; R51.9 Headache, unspecified; Z11.52 Encounter for screening for COVID-19; Z79.899 Other long term (current) drug therapy
CPT/HCPCS: 36415; 70450; 72125; 80048; 80076; 80177; 80307; 81001; 85025; 85610; 87502; 87635; 96374; 99284; J1953

== ENCOUNTER 2025-06-14 20:54 | Emergency (ER) | payer MEDICAID, SELFPAY ==
--- NOTE | ~2025-06-14 | CT_ITS ---
CLINICAL HISTORY: trauma CT cervical spine without contrast Comparison: CT of the cervical spine from 11/09/2023 Findings: No acute fracture of the cervical spine. Mild reversal of the upper cervical lordosis. No significant change in vertebral heights or alignments with mild retrolisthesis at C3-C4 and C4-C5. Disc osteophyte complexes, ligament calcifications, osteophytes, and facet arthropathy are multifocal. Mild spinal canal stenosis by CT including C3-C4 to C6-C7 with severe multifocal foraminal narrowing by CT. No significant change in lucency of the posterior arch of C1 which is likely on a congenital basis. 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 No paraspinal hematoma. Metal artifacts of the vascular calcifications noted. Scarring and emphysematous changes include in the imaged lung apices. IMPRESSION: 1. No acute fracture of the cervical spine. 2. CT findings of spinal stenosis including multifocal foraminal narrowing This document has been electronically signed by: David Ashby MD on 06/15/2025 01:11:57
--- NOTE | ~2025-06-14 | CT_ITS ---
CLINICAL HISTORY: trauma CT head without contrast Comparison: Head CT from 11/09/2023 Findings: No acute intracranial hemorrhage. No midline shift or hydrocephalus. Mild volume loss is generalized. Mild white matter lesions are nonspecific and may be due to small-vessel ischemic disease. No large arterial territorial infarction by CT. Small old infarction versus perivascular spaces unchanged in the basal ganglia regions. Mild mucosal thickening of the imaged paranasal sinuses. Imaged mastoid air cells are well aerated. No acute skull fracture. Bilateral nasal bone fractures appear old/chronic. Vascular calcifications are redemonstrated. IMPRESSION: 1. No acute intracranial abnormality by CT. 2. Imaged nasal bone fractures appear old/chronic. This document has been electronically signed by: David Ashby MD on 06/15/2025 00:59:48
[2025-06-14 20:58] VITALS: BP 132/88; PULSE 62; O2SAT 99
[2025-06-14 21:06] VITALS: BP 115/74; PULSE 61; RESP 18; TEMP 36.8; O2SAT 98; BMI 24.1
[2025-06-14 21:10] VITALS: BP 111/75; PULSE 62; RESP 17; TEMP 36.8; O2SAT 98
--- OUTSIDE RECORDS SUMMARY | 2025-06-14 21:30 | XMS_ITS | Encounter Summary ---
Author Organization [facility] Address [address] [place] [address] [place] [id number] Phone Care Team Providers Care Knife Edger Name Role Phone Kassy Cool MD Primary Care Provider + [phone] Pcp, Unknown Primary Care Provider Unavailabl e Kassy Cool MD Primary Care Provider + [phone] Encounter Details Date Type Department Care Team (Late st Contact Info) Description 07/21/2021 Procedure Pass [facility], Ct Scan - [address] [address] Social History Tobacco Use Types Packs/Day Years Used Date Smoking Tobacco: Every Day Cigarettes Smokeless Tobacco: Never Alcohol Use Standard Drinks/Week Comments Yes 0 (1 standard drink = 0.6 oz pure alcohol) 10-15 nips daily and 3, 24 oz beers Sex and Gender Information Value Date Recorded Sex Assigned at Male 12/21/2017 8:18 PM EDT Legal Sex Male 9:43 PM EDT Gender Identity Male 12/21/2017 8:18 PM EDT Sexual Orientation Straight 01/14/2018 1: 04 AM EDT documented as of this encounter Functional Status * Calculated C-SSRS Risk Score (Lifetime/Recent) Answer Date of Assessment Author No Risk Indicated 07/24/2021 9:43 AM EDT Cindy Reyes RN * [place] Suicide Severity Rating Scale (Screener/Recent Self-Report) Question Answer Date of Assessment Author 1. Wish to be (Past 1 Month) No 021 9:43 AM EDT Cindy Reyes RN 2. Non-Specific Active Suici nacho Thoughts (Past 1 Month) No 07/24/2021 9:43 AM EDT oTng Reyes ace, BRICE 6. Suicidal Behavior (Lifetime) No 9:43 AM EDT Cindy Reyes RN documented as of this encounter Plan of Treatment Not on file documented as of this encounter Goals Goal Patient Goal Type Associated Problems Recent Progress Patient-Stated? Author Acute Care Plan Acute Care Plan No Raiza Mclain, RN Note: 06/19/23: Resides @ [address] [place] [address] ([employer]) Dr. Cool's cell [phone] if needed Previous inpatient detox facilities: [facility] at [facility] is his preferred detox Formerly homeless [facility] General No Carmen Peralta, BRICE Note: Dr. Cool states pt was in a temporary assisted run by [facility] in [place] for about 1 month Oct 2020 recently but he eloped from there. It is now closed. She requests that we add to his care plan to direct him to go directly to the assisted clinic to see her upon ED if he arrives here on a Friday or , call her either way if he is in the ED [phone]. Also ask pt where he is sleeping currently so she can track him down. documented as of this encounter Visit Diagnoses Not on filedocumented in this encounter Additional Health Concerns Infection Onset Date Last Indicated Resolved Time MRSA Comment:Infection Loaded by the Load Infection Utility 01/02/2017 01/02/2017 11/13/2022 1:[address] CoV-Risk 06/19/2023 06/19/2023 06/30/2023 1:22 AM EDT CoV-Risk 04/01/2024 04/01/2024 04/12/2024 1:21 AM EDT CoV-Risk 04/26/2025 04/26/2025 05/07/2025 1:21 AM EDT documented as of this encounter Care Teams Knife Edger Relationship Specialty Start Date End Date Kassy Cool MD [address] [place] [address] [email or web address] PCP - General Family Medicine 05/01/21 01/26/22 Pcp, Unknown PCP - General 01/27/22 03/04/22 Kassy Cool MD [address] [place] [address] [email or web address] PCP - General Family Medicine 04/16/23 documented as of this encounter Additional Source Comments The information contained in this document represents components of the legal health record. It is not the complete legal health record.[facility]
--- OUTSIDE RECORDS SUMMARY | 2025-06-14 21:30 | XMS_ITS | Encounter Summary ---
Author Organization [facility] Address [address] [place] [address] [place] [phone] Phone Care Team Providers Care Manager Digital Name Role Phone Kassy Cool MD Primary Care Provider + [phone] Encounter Details Date Type Department Care Team (Late st Contact Info) Description 12/17/2022 Procedure Pass [facility], Ct Scan - [address] [address] Social History Tobacco Use Types Packs/Day Years [...] Date of Assessment Author No Risk Indicated 12/17/2022 5:12 PM EDT Jenn Bland RN * [place] Suicide Severity Rating Scale (Screener/Recent Self-Report) Question Answer Date of Assessment Author 1. Wish to be (Past 1 Month) No 12/17/2022 5:12 PM EDT Nathalia Kirk, BRICE 2. Non-Specific Active Suicidal Thoughts (Past 1 Month) No 12/17/2022 5:12 PM EDT Nathalia Kirk, BRICE 6. Suicidal Behavior (Lifetime) No 12/17/2022 5:12 PM EDT Nathalia Kirk RN documented as of this encounter Plan of Treatment Not on file documented as of this encounter Goals Goal Patient Goal Type Associated Problems Recent Progress Patient-Stated? Author Acute Care Plan Acute Care Plan No Raiza Mclain, RN Note: 06/19/23: Resides @ [address] [place] [address] ([employer]) Dr. Cool's cell [phone] if needed Previous inpatient detox facilities: [facility] at [facility] is his preferred detox Formerly homeless [facility] General No Carmen Peralta, BRICE Note: Dr. Cool states pt was in a temporary [facility] run by [facility] in [place] for about 1 month Oct 2020 recently but he eloped from there. It is now closed. She requests that we add to his care plan to direct him to go directly to the chcf clinic to see her upon ED if he arrives here on a Friday or , call her either way if he is in the ED [phone]. Also ask pt where he is sleeping currently so she can track him down. documented as of this encounter Visit Diagnoses Not on filedocumented in this encounter Additional Health Concerns Infection Onset Date Last Indicated Resolved Time CoV-Risk 06/19/2023 06/19/2023 06/30/2023 1:22 AM EDT CoV-Risk 04/01/2024 04/01/2024 04/12/2024 1:21 AM EDT CoV-Risk 04/26/2025 04/26/2025 05/07/2025 1:21 AM EDT documented as of this encounter Care Teams Manager Digital Relationship Specialty Start Date End Date Kassy Cool MD [address] [place] [address] PCP - General Family Medicine 04/16/23 documented as of this encounter Additional Source Comments The information contained in this document represents components of the legal health record. It is not the complete legal health record.[facility]
--- OUTSIDE RECORDS SUMMARY | 2025-06-14 21:30 | XMS_ITS | Encounter Summary ---
Author Organization [facility] Address [address] [place] [address] [place] [address] Phone Care Team Providers Care Foreign Languages Department Chair Name Role Phone Kassy Cool MD Primary Care Provider + [phone] Pcp, Unknown Primary Care Provider Unavailabl e Kassy Cool MD Primary Care Provider + [phone] Encounter Details Date Type Department Care Team (Late st Contact Info) Description 01/24/2022 Procedure Pass [facility], Ct Scan - [address] [address] Social History Tobacco Use Types Packs/Day Years [...] Date of Assessment Author No Risk Indicated 01/27/2022 9:39 PM EDT Tracey Wilson RN * [place] Suicide Severity Rating Scale (Screener/Recent Self-Report) Question Answer Date of Assessment Author 1. Wish to be (Past 1 Month) No 01/27/2022 9:39 PM EDT Tracey Wilson RN 2. Non-Specific Active Suici nacho Thoughts (Past 1 Month) No 01/27/2022 9:39 PM EDT Fawn Wilson RN 6. Suicidal Behavior (Lifetime) No 9:39 PM EDT Tracey Wilson RN documented as of this encounter Plan of Treatment Not on file documented as of this encounter Goals Goal Patient Goal Type Associated Problems Recent Progress Patient-Stated? Author Acute Care Plan Acute Care Plan No Raiza Mclain RN Note: 06/19/23: Resides @ [address] [place] [address] ([employer]) Dr. Cool's cell [phone] if needed Previous inpatient detox facilities: Razo Unit at [facility] is his preferred detox Formerly homeless Engage in recovery supports General No Carmen Peralta RN Note: Dr. Cool states pt was in a temporary alf run by [facility] in [place] for about 1 month Oct 2020 recently but he eloped from there. It is now closed. She requests that we add to his care plan to direct him to go directly to the alf clinic to see her upon ED if he arrives here on a Friday or , call her either way if he is in the ED [phone]. Also ask pt where he is sleeping [...] documented as of this encounter Care Teams Foreign Languages Department Chair Relationship Specialty Start Date End Date Kassy Cool MD [address] [place] [address] [email or web address] PCP - General Family Medicine 05/01/21 01/26/22 Pcp, Unknown PCP - General 01/27/22 03/04/22 Kassy Cool MD [address] [place] [address] [email or web address] PCP - General Family Medicine 04/16/23 documented as of this encounter Additional Source Comments The information contained in this document represents components of the legal health record. It is not the complete legal health record.[facility]
--- OUTSIDE RECORDS SUMMARY | 2025-06-14 21:30 | XMS_ITS | Encounter Summary ---
Author Organization [facility] Address [address] [place] [address] [place] [address] Phone Care Team Providers Care Dispatch Officer Name Role Phone Kassy Cool MD Primary Care Provider + [phone] Pcp, Unknown Primary Care Provider Unavailabl e Kassy Cool MD Primary Care Provider + [phone] Encounter Details Date Type Department Care Team (Late st Contact Info) Description 07/28/2021 Procedure Pass [facility], Ct Scan - [address] [address] Social History Tobacco Use Types Packs/Day Years [...] Date of Assessment Author No Risk Indicated 07/30/2021 5:31 PM EDT Cindy Reyes RN * [place] Suicide Severity Rating Scale (Screener/Recent Self-Report) Question Answer Date of Assessment Author 1. Wish to be (Past 1 Month) No 021 5:31 PM EDT Cindy Reyes RN 2. Non-Specific Active Suici nacho Thoughts (Past 1 Month) No 07/30/2021 5:31 PM EDT Tong Reyes ace, BRICE 6. Suicidal Behavior (Lifetime) No 5:31 PM EDT Cindy Reyes RN documented as of this encounter Plan of Treatment Not on file documented as of this encounter Goals Goal Patient Goal Type Associated Problems Recent Progress Patient-Stated? Author Acute Care Plan Acute Care Plan No Raiza Mclain, RN Note: 06/19/23: Resides @ [address] [place] [address] ([employer]) Dr. Cool's cell [phone] if needed Previous inpatient detox facilities: Razo Unit at [facility] is his preferred detox Formerly homeless Engage in recovery supports General No Carmen Peralta, BRICE Note: Dr. Cool states pt was in a temporary senior care run by [facility] in [place] for about 1 month Oct 2020 recently but he eloped from there. It is now closed. She requests that we add to his care plan to direct him to go directly to the senior care clinic to see her upon ED if he arrives here on a Friday or , call her either way if he is in the ED [phone]. Also ask pt where he is sleeping [...] documented as of this encounter Care Teams Dispatch Officer Relationship Specialty Start Date End Date Kassy Cool MD [address] [place] [address] PCP - General Family Medicine 05/01/21 01/26/22 Pcp, Unknown PCP - General 01/27/22 03/04/22 Kassy Cool MD [address] [place] [address] [email or web address] PCP - General Family Medicine 04/16/23 documented as of this encounter Additional Source Comments The information contained in this document represents components of the legal health record. It is not the complete legal health record.[facility]
--- OUTSIDE RECORDS SUMMARY | 2025-06-14 21:30 | XMS_ITS | Encounter Summary ---
Author Organization [facility] Address [address] [place] [address] [place] [address] Phone Care Team Providers Care Care Transition Coordinator Name Role Phone Kassy Cool MD Primary Care Provider + [phone] Encounter Details Date Type Department Care Team (Late st Contact Info) Description 10/11/2022 Procedure Pass [facility], Ct Scan - [address] [address] Social History Tobacco Use Types Packs/Day Years [...] Date of Assessment Author No Risk Indicated 10/11/2022 6:24 PM Chata Anand RN * [place] Suicide Severity Rating Scale (Screener/Recent Self-Report) Question Answer Date of Assessment Author 1. Wish to be (Past 1 Month) No 023 6:24 PM Chata Lugo, BRICE 2. Non-Specific Active Suici nacho Thoughts (Past 1 Month) No 10/11/2022 6:24 PM Trisha Lugo RN 6. Suicidal Behavior (Lifetime) No 6:24 PM Chata Lugo, BRICE documented as of this encounter Plan of Treatment Not on file documented as of this encounter Goals Goal Patient Goal Type Associated Problems Recent Progress Patient-Stated? Author Acute Care Plan Acute Care Plan No Raiza Mclain, RN Note: 06/19/23: Resides @ [address] [place] [address] ([facility] [employer]) Dr. Cool's cell [phone] if needed Previous inpatient detox facilities: Razo Unit at [facility] is his preferred detox Formerly homeless Engage in recovery supports General No Carmen Peralta, BRICE Note: Dr. Cool states pt was in a temporary mcc run by [facility] in [place] for about 1 month Oct 2020 recently but he eloped from there. It is now closed. She requests that we add to his care plan to direct him to go directly to the mcc clinic to see her upon ED if he arrives here on a Friday or , call her either way if he is in the ED [phone]. Also ask pt where he is sleeping [...] documented as of this encounter Care Teams Care Transition Coordinator Relationship Specialty Start Date End Date Kassy Cool MD [address] [place] [address] [email or web address] PCP - General Family Medicine 04/16/23 documented as of this encounter Additional Source Comments The information contained in this document represents components of the legal health record. It is not the complete legal health record.[facility]
--- OUTSIDE RECORDS SUMMARY | 2025-06-14 21:30 | XMS_ITS | Encounter Summary ---
Author Organization [facility] Address [address] [place] [address] [place] [address] Phone Care Team Providers Care Potato Peeling Machine Operator Name Role Phone Kassy Cool MD Primary Care Provider [phone] Pcp, Unknown Primary Care Provider UnavailKassy Jo MD Primary Care Provider + [phone] Encounter Details Date Type Department Care Team (Late st Contact Info) Description 07/17/2021 Procedure Pass [facility], Ct Scan - [address] [address] Social History Tobacco Use Types Packs/Day Years [...] AM EDT documented as of this encounter Plan of Treatment Not on file documented as of this encounter Goals Goal Patient Goal Type Associated Problems Recent Progress Patient-Stated? Author Acute Care Plan Acute Care Plan No Raiza Mclain, RN Note: 06/19/23: Resides @ [address] [place] [address] ([employer]) Dr. Cool's cell [phone] if needed Previous inpatient detox facilities: Razo Unit at [facility] is his preferred detox Formerly homeless Engage in recovery supports General No Yoselin Peraltaerine, RN Note: Dr. Cool states pt was in a temporary halfway run by [facility] in [place] for about 1 month Oct 2020 recently but he eloped from there. It is now closed. She requests that we add to his care plan to direct him to go directly to the halfway clinic to see her upon ED if he arrives here on a Friday or , call her either way if he is in the ED [phone]. Also ask pt where he is sleeping [...] documented as of this encounter Care Teams Potato Peeling Machine Operator Relationship Specialty Start Date End Date Kassy Cool MD [address] [place] [address] PCP - General Family Medicine 05/01/21 01/26/22 Pcp, Unknown PCP - General 01/27/22 03/04/22 Kassy Cool MD [address] [place] [address] PCP - General Family Medicine 04/16/23 documented as of this encounter Additional Source Comments The information contained in this document represents components of the legal health record. It is not the complete legal health record.[facility]
--- OUTSIDE RECORDS SUMMARY | 2025-06-14 21:30 | XMS_ITS | Encounter Summary ---
Author Organization [facility] Address [address] [place] [address] Phone Care Team Providers Care It Software Developer Name Role Phone Kiya Valenzuela OFFICE EXECUTIVE Primary Care Provider Valdez Abebe MD Unavailable [phone] Valdez Abebe MD Primary Care Provider Kiya Valenzuela OFFICE EXECUTIVE Primary Care Provider Hussein Vasquez MD Unavailable Valdez Abebe MD Unavailable [phone] Hussein Vasquez MD Unavailable Kiya Valenzuela OFFICE EXECUTIVE Primary Care Provider Kassy Cool MD Primary Care Provider + [phone] Pcp, Unknown Primary Care Provider Unavailabl e Kassy Cool MD Primary Care Provider + [phone] Encounter Details Date Type Department Care Team (Late st Contact Info) Description 04/23/2018 Procedure Pass [facility], Ct Scan - [facility] [address] [place] [address] Social History Tobacco Use Types Packs/Day Years Used Date Smoking Tobacco: Every Day Cigarettes Smokeless Tobacco: Never Comments:unsure Alcohol Use Standard Drinks/Week Comments Yes 0 (1 standard drink = 0.6 oz pur e alcohol) 15-20 nips Sex and Gender Information Value Date Recorded Sex Assigned at Male 12/21/2017 8:18 PM EDT Legal Sex Male 9:43 PM EDT Gender Identity Male 12/21/2017 8:18 PM EDT Sexual Orientation Straight 01/14/2018 1: 04 AM EDT documented as of this encounter Plan of Treatment Not on file documented as of this encounter Visit Diagnoses Not on filedocumented in this encounter Additional Health Concerns Infection Onset Date Last Indicated Resolved Time MRSA Comment:Infection Loaded by the Load Infection Utility 01/02/2017 01/02/2017 11/13/2022 1:41 A M EST CoV-Risk 01/16/2020 01/22/2020 01/23/2020 11:5 0 AM EDT CoV-Exposed 01/23/2020 01/23/2020 02/06/2020 1:26 AM EDT CoV-Risk Comment:Homeless 02/08/2020 02/08/2020 02/09/2020 11:31 AM EDT CoV-Risk 02/24/2020 02/24/2020 03/09/2020 1:23 AM EDT CoV-Risk 05/17/2020 05/17/2020 05/31/2020 1:24 AM EDT CoV-Risk Comment:Per note documentation 10/08/2020 10/08/2020 8:01 AM EST CoV-Risk 10/12/2020 10/12/2020 10/29/2020 1:23 AM EST CoV-Exposed Comment:Recent close contact documented in the COVID-19 PCR/PRO order 11/06/2020 11/06/2020 11/21/2020 1:[address] CoV-Risk 01/20/2021 01/20/2021 01/30/2021 1:23 AM EDT CoV-Risk 06/19/2023 06/19/2023 06/30/2023 1:22 AM EDT CoV-Risk 04/01/2024 04/01/2024 04/12/2024 1:21 AM EDT CoV-Risk 04/26/2025 04/26/2025 05/07/2025 1:21 AM EDT documented as of this encounter Care Teams It Software Developer Relationship Specialty Start Date End Date Kiya Valenzuela NP [address] [place] [phone] [email or web address] PCP - General Family Medicine 5/1/18 9/10/18 Valdez Abebe MD [address] [place] [address] [email or web address] PCP - General Family Medicine 06/09/18 09/02/19 Kiya Valenzuela OFFICE EXECUTIVE [address] [place] [address] [email or web address] PCP - General Family Medicine 09/03/19 10/07/20 Kiya Valenzuela NP [address] [place] [address] [email or web address] PCP - General Family Medicine 10/08/20 04/30/21 Kassy Cool MD [address] [place] [address] [email or web address] PCP - General Family Medicine 05/01/21 01/26/22 Pcp, Unknown PCP - General 01/27/22 03/04/22 Kassy Cool MD [address] [place] [address] [email or web address] PCP - General Family Medicine 04/16/23 Valdez Abebe MD [address] [place] [address] [email or web address] Insurance Assigned Provider 05/30/18 10/29/19 Hussein Vasquez MD [address] [place] [address] [address] [place] [phone] [email or web address] Insurance Assigned Provider 10/29/19 01/05/20 Valdez Abebe MD [address] [place] [address] [email or web address] Insurance Assigned Provider 01/05/20 04/03/20 Hussein Vasquez MD [address] [place] [phone] [email or web address] Insurance Assigned Provider 05/04/20 01/06/21 documented as of this encounter Additional Source Comments The information contained in this document represents components of the legal health record. It is not the complete legal health record.[facility]
--- OUTSIDE RECORDS SUMMARY | 2025-06-14 21:30 | XMS_ITS | Encounter Summary ---
Author Organization [facility] Address [address] [place] [address] Phone Care Team Providers Care Cdl Truck Driver Name Role Phone Pcp, Unknown Primary Care Provider Kassy Pollack MD Primary Care Provider [phone] Encounter Details Date Type Department Care Team (Late st Contact Info) Description 03/01/2022 Procedure Pass [facility], Ct Scan - [address] [address] Social History Tobacco Use Types Packs/Day Years [...] Date of Assessment Author No Risk Indicated 03/01/2022 11:02 AM EDT Rosio Leavitt RN * [place] Suicide Severity Rating Scale (Screener/Recent Self-Report) Question Answer Date of Assessment Author 1. Wish to be (Past 1 Month) No 03/01/2022 11:02 AM EDT Rosio Leavitt RN 2. Non-Specific Active Suici nacho Thoughts (Past 1 Month) No 03/01/2022 11:02 AM EDT [place], [place] sey J, RN 6. Suicidal Behavior (Lifetime) No 11:02 AM EDT Rosio Leavitt RN documented as of this encounter Plan of Treatment Not on file documented as of this encounter Goals Goal Patient Goal Type Associated Problems Recent Progress Patient-Stated? Author Acute Care Plan Acute Care Plan No Raiza Mclain RN Note: 06/19/23: Resides @ [address] [place] [address] ([employer]) Dr. Cool's cell [phone] if needed Previous inpatient detox facilities: Razo Unit at [facility] is his preferred detox Formerly homeless Engage in recovery supports General No Carmen Peralta, BRICE Note: Dr. Cool states pt was in a temporary long term run by [facility] in [place] for about 1 month Oct 2020 recently but he eloped from there. It is now closed. She requests that we add to his care plan to direct him to go directly to the long term clinic to see her upon ED if he arrives here on a Friday or , call her either way if he is in the ED [phone]. Also ask pt where he is sleeping [...] documented as of this encounter Care Teams Cdl Truck Driver Relationship Specialty Start Date End Date Pcp, Unknown PCP - General 01/27/22 03/04/22 Kassy Cool MD [address] [place] [address] PCP - General Family Medicine 04/16/23 documented as of this encounter Additional Source Comments The information contained in this document represents components of the legal health record. It is not the complete legal health record.[facility]
--- OUTSIDE RECORDS SUMMARY | 2025-06-14 21:30 | XMS_ITS | Encounter Summary ---
Author Organization [facility] Address [address] [place] [address] Phone Care Team Providers Care Creative Services Specialist Name Role Phone Pcp, Unknown Primary Care Provider Kassy Pollack MD Primary Care Provider [phone] Encounter Details Date Type Department Care Team (Late st Contact Info) Description 03/01/2022 Procedure Pass [facility], Ct Scan - [address] [address] Social History Tobacco Use Types Packs/Day Years [...] 11:02 AM EDT Rosio Leavitt RN * [place] Suicide Severity Rating Scale (Screener/Recent Self-Report) Question Answer Date of Assessment Author 1. Wish to be (Past 1 Month) No 03/01/2022 11:02 AM EDT Rosio Leavitt RN 2. Non-Specific Active Suici nacho Thoughts (Past 1 Month) No 03/01/2022 11:02 AM EDT [place], [place] sey J, RN 6. Suicidal Behavior (Lifetime) No 11:02 AM EDT Rosio Leavitt RN documented as of this encounter Plan of Treatment Not on file documented as of this encounter Goals Goal Patient Goal Type Associated Problems Recent Progress Patient-Stated? Author Acute Care Plan Acute Care Plan No Raiza Mclain RN Note: 06/19/23: Resides @ [address] [place] [address] ([employer]) Dr. Cool's cell [phone] if needed Previous inpatient detox facilities: Razo Unit at [facility] is his preferred detox Formerly homeless Engage in recovery supports General No Carmen Peralta, BRICE Note: Dr. Cool states pt was in a temporary custodial run by [facility] in [place] for about 1 month Oct 2020 recently but he eloped from there. It is now closed. She requests that we add to his care plan to direct him to go directly to the custodial clinic to see her upon ED if he arrives here on a Friday or , call her either way if he is in the ED [phone]. Also ask pt where he is sleeping [...] documented as of this encounter Care Teams Creative Services Specialist Relationship Specialty Start Date End Date Pcp, Unknown PCP - General 01/27/22 03/04/22 Kassy Cool MD [address] [place] [address] PCP - General Family Medicine 04/16/23 documented as of this encounter Additional Source Comments The information contained in this document represents components of the legal health record. It is not the complete legal health record.[facility]
--- OUTSIDE RECORDS SUMMARY | 2025-06-14 21:30 | XMS_ITS | Encounter Summary ---
Author Organization [facility] Address [address] [place] [address] [place] [address] Phone Care Team Providers Care Django Developer Name Role Phone Kassy Cool MD Primary Care Provider [phone] Encounter Details Date Type Department Care Team (Late st Contact Info) Description 12/19/2022 Procedure Pass [place] Admitting Dept - Virtual Department [address] [place] [address] Social History Tobacco Use Types Packs/Day Years [...] Raiza Mclain, RN Note: 06/19/23: Resides @ [address] [place] [address] ([employer]) Dr. Cool's cell [phone] if needed Previous inpatient detox facilities: Razo Unit at [facility] is his preferred detox Formerly homeless Engage in recovery supports General No Carmen Peralta, RN Note: Dr. Cool states pt was in a temporary group home run by [facility] in [place] for about 1 month Oct 2020 recently but he eloped from there. It is now closed. She requests that we add to his care plan to direct him to go directly to the group home clinic to see her upon ED if he arrives here on a Friday or , call her either way if he is in the ED [phone]. Also ask pt where he is sleeping [...] documented as of this encounter Care Teams Django Developer Relationship Specialty Start Date End Date Kassy Cool MD [address] [place] [address] [email or web address] PCP - General Family Medicine 04/16/23 documented as of this encounter Additional Source Comments The information contained in this document represents components of the legal health record. It is not the complete legal health record.[facility]
--- OUTSIDE RECORDS SUMMARY | 2025-06-14 21:30 | XMS_ITS | Encounter Summary ---
Author Organization [facility] Address [address] [place] [address] [place] [address] Phone Care Team Providers Care Coremaker Helper Name Role Phone Kassy Cool MD Primary Care Provider + [phone] Pcp, Unknown Primary Care Provider Unavailabl e Kassy Cool MD Primary Care Provider + [phone] Encounter Details Date Type Department Care Team (Late st Contact Info) Description 07/21/2021 Procedure Pass [facility], Ct Scan - [address] [address] Social History Tobacco Use Types Packs/Day Years [...] 9:43 AM EDT Cindy Reyes RN * [place] Suicide Severity Rating Scale (Screener/Recent Self-Report) Question Answer Date of Assessment Author 1. Wish to be (Past 1 Month) No 021 9:43 AM EDT Cindy Reyes RN 2. Non-Specific Active Suici nacho Thoughts (Past 1 Month) No 07/24/2021 9:43 AM EDT Tong Reyes ace, BRICE 6. Suicidal Behavior (Lifetime) No 9:43 AM EDT Cindy Reyes RN documented as of this encounter Plan of Treatment Not on file documented as of this encounter Goals Goal Patient Goal Type Associated Problems Recent Progress Patient-Stated? Author Acute Care Plan Acute Care Plan No Raiza Mclain, RN Note: 06/19/23: Resides @ [address] [place] [address] ([employer]) Dr. Cool's cell [phone] if needed Previous inpatient detox facilities: Razo Unit at [facility] is his preferred detox Formerly homeless Engage in recovery supports General No Carmen Peralta, BRICE Note: Dr. Cool states pt was in a temporary m[facility] run by [facility] in [place] for about 1 month Oct 2020 recently but he eloped from there. It is now closed. She requests that we add to his care plan to direct him to go directly to the m[facility]p clinic to see her upon ED if he arrives here on a Friday or , call her either way if he is in the ED [phone]. Also ask pt where he is sleeping [...] documented as of this encounter Care Teams Coremaker Helper Relationship Specialty Start Date End Date Kassy Cool MD [address] [place] [address] PCP - General Family Medicine 05/01/21 01/26/22 Pcp, Unknown PCP - General 01/27/22 03/04/22 Kassy Cool MD [address] [place] [address] [email or web address] PCP - General Family Medicine 04/16/23 documented as of this encounter Additional Source Comments The information contained in this document represents components of the legal health record. It is not the complete legal health record.[facility]
--- OUTSIDE RECORDS SUMMARY | 2025-06-14 21:30 | XMS_ITS | Encounter Summary ---
Author Organization [facility] Address [address] [place] [address] Phone Care Team Providers Care Squaring Machine Operator Name Role Phone Unknown, Unknown Primary Care Provider Kiay Beauchamp AUTOMOBILE TRAVEL CLUB COUNSELOR Primary Care Provider Valdez Abebe MD Unavailable [phone] Valdez Abebe MD Primary Care Provider Kiya Valenzuela AUTOMOBILE TRAVEL CLUB COUNSELOR Primary Care Provider Hussein Vasquez MD Unavailable Valdez Abebe MD Unavailable Hussein Vasquez MD Unavailable Kiya Valenzuela AUTOMOBILE TRAVEL CLUB COUNSELOR Primary Care Provider Kassy Cool MD Primary Care Provider Pcp, Unknown Primary Care Provider Unavailabl e Kassy Cool MD Primary Care Provider [phone] Encounter Details Date Type Department Care Team (Late st Contact Info) Description 01/14/2018 Procedure Pass [facility], Ct Scan - [address] [address] Social History Tobacco Use Types Packs/Day Years Used Date Smoking Tobacco: Every Day Cigarettes Smokeless Tobacco: Never Alcohol Use Standard Drinks/Week Comments Yes 0 (1 standard drink = 0.6 oz pur e alcohol) here for detox Sex and Gender Information Value Date Recorded [...] documented as of this encounter Care Teams Squaring Machine Operator Relationship Specialty Start Date End Date Unknown, Unknown, PCP - General 08/18/17 01/26/18 Kiya Valenzuela, STEVE [address] [place] [phone] (work) [email or web address] PCP - General Family Medicine 01/27/18 06/08/18 Valdez Abebe MD [address] [place] [address] [email or web address] PCP - General Family Medicine 06/09/18 09/02/19 Kiya Valenzuela NP [address] [place] [address] [email or web address] PCP - General Family Medicine 09/03/19 10/07/20 Kiya Valenzuela NP [address] [place] [phone] [email or web address] PCP - General Family Medicine 10/08/20 04/30/21 Kassy Cool MD [address] [place] [address] [email or web address] PCP - General Family Medicine 05/01/21 01/26/22 Pcp, Unknown PCP - General 01/27/22 03/04/22 Kassy Cool MD [address] [place] [address] [email or web address] PCP - General Family Medicine 04/16/23 Valdez Abebe MD [address] [place] [address] [email or web address] Assigned Provider 05/30/18 10/29/19 Hussein Vasquez MD [address] [place] [address] [address] [place] [phone] [email or web address] Insurance Assigned Provider 10/29/19 01/05/20 Valdez Abebe MD [address] [place] [address] [email or web address] Assigned Provider 01/05/20 04/03/20 Hussein Vasquez MD [address] [place] [address] [address] [place] [phone] [email or web address] Insurance Assigned Provider 05/04/20 01/06/21 documented as of this encounter Additional Source Comments The information contained in this document represents components of the legal health record. It is not the complete legal health record.[facility]
--- OUTSIDE RECORDS SUMMARY | 2025-06-14 21:30 | XMS_ITS | Encounter Summary ---
Author Organization [facility] Address [address] [place] [address] [place] [address] Phone Care Team Providers Care Senior Environmental Practice Leader Name Role Phone Kassy Cool MD Primary Care Provider + [phone] Encounter Details Date Type Department Care Team (Late st Contact Info) Description 10/11/2022 Procedure Pass [facility], Ct Scan - [address] [address] Social History Tobacco Use Types Packs/Day Years [...] 10/11/2022 6:24 PM Chata Anand RN * [place] Suicide Severity Rating Scale (Screener/Recent Self-Report) Question [...] Raiza Mclain, RN Note: 06/19/23: Resides @ [address] [place] [address] ([facility]) Dr. Cool's cell [phone] if needed Previous inpatient detox facilities: Razo Unit at [facility] is his preferred detox Formerly homeless Engage in recovery supports General No Carmen Peralta, BRICE Note: Dr. Cool states pt was in a temporary halfway run by [facility] in [place] for about 1 month Oct 2020 recently but he eloped from there. It is now closed. She requests that we add to his care plan to direct him to go directly to the halfway clinic to see her upon ED if he arrives here on a Friday or , call her either way if he is in the ED [phone]. Also ask pt where he is sleeping [...] documented as of this encounter Care Teams Senior Environmental Practice Leader Relationship Specialty Start Date End Date Kassy Cool MD [address] [place] [address] [email or web address] PCP - General Family Medicine 04/16/23 documented as of this encounter Additional Source Comments The information contained in this document represents components of the legal health record. It is not the complete legal health record.[facility]
--- OUTSIDE RECORDS SUMMARY | 2025-06-14 21:30 | XMS_ITS | Encounter Summary ---
Author Organization [facility] Address [address] [place] [address] [place] [address] Phone Care Team Providers Care Director Call Name Role Phone Kassy Cool MD Primary Care Provider + [phone] Encounter Details Date Type Department Care Team (Late st Contact Info) Description 03/29/2022 Procedure Pass [facility], Ct Scan - [address] [address] Social History Tobacco Use Types Packs/Day Years [...] Date of Assessment Author No Risk Indicated 04/01/2022 1:20 PM EDT Shira Salomon RN * [place] Suicide Severity Rating Scale (Screener/Recent Self-Report) Question Answer Date of Assessment Author 1. Wish to be (Past 1 Month) No 04/01/2022 1:20 PM EDT Shira Sultana, BRICE 2. Non-Specific Active Suicidal Thoughts (Past 1 Month) No 04/01/2022 1:20 PM EDT Shira Sultana RN 6. Suicidal Behavior (Lifetime) No 04/01/2022 1:20 PM EDT Shira Sultana RN documented as of this encounter Plan of Treatment Not on file documented as of this encounter Goals Goal Patient Goal Type Associated Problems Recent Progress Patient-Stated? Author Acute Care Plan Acute Care Plan No Raiza Mclain, RN Note: 06/19/23: Resides @ [address] [place] [address] ([employer]) Dr. Cool's cell [phone] if needed Previous inpatient detox facilities: Razo Unit at [facility] is his preferred detox Formerly homeless Engage in recovery supports General No Carmen Peralta, BRICE Note: Dr. Cool states pt was in a [place] [facility] [place] [facility] by [facility] in [place] for about 1 month Oct 2020 recently but he eloped from there. It is now closed. She requests that we add to his care plan to direct him to [place] directly [place] the [place] [facility] [place] to see her upon ED if he arrives here on a Friday or , call her either way if he is in the ED [phone]. Also ask pt where he is sleeping [...] documented as of this encounter Care Teams Director Call Relationship Specialty Start Date End Date Kassy Cool MD [address] [place] [address] PCP - General Family Medicine 04/16/23 documented as of this encounter Additional Source Comments The information contained in this document represents components of the legal health record. It is not the complete legal health record.[facility]
--- OUTSIDE RECORDS SUMMARY | 2025-06-14 21:30 | XMS_ITS | Encounter Summary ---
Author Organization [facility] Address [address] [place] [address] [place] [address] Phone Care Team Providers Care Jack Strip Assembler Name Role Phone Valdez Abebe MD Unavailable [phone] Valdez Abebe MD Primary Care Provider Kiya Valenzuela ENGAGEMENT EXECUTIVE Primary Care Provider Hussein Vasquez MD Unavailable Valdez Abebe MD Unavailable [phone] Hussein Vasquez MD Unavailable Kiya Valenzuela ENGAGEMENT EXECUTIVE Primary Care Provider Kassy Cool MD Primary Care Provider [phone] Pcp, Unknown Primary Care Provider Unavailabl e Kassy Cool MD Primary Care Provider Encounter Details Date Type Department Care Team (Late st Contact Info) Description 07/13/2018 Procedure Pass [facility], Ct Scan - [address] [address] Social History Tobacco Use Types Packs/Day Years [...] documented as of this encounter Care Teams Jack Strip Assembler Relationship Specialty Start Date End Date Valdez Abebe MD [address] [place] [address] [email or web address] PCP - General Family Medicine 06/09/18 09/02/19 Kiya Valenzuela ENGAGEMENT EXECUTIVE [address] [place] [phone] [email or web address] PCP - General Family Medicine 09/03/19 10/07/20 Kiya Valenzuela ENGAGEMENT EXECUTIVE [address] [place] [address] [email or web address] PCP - General Family Medicine 10/08/20 04/30/21 Kassy Cool MD [address] [place] [address] [email or web address] PCP - General Family Medicine 05/01/21 01/26/22 Pcp, Unknown PCP - General 01/27/22 03/04/22 Kassy Cool MD [address] [place] [address] [email or web address] PCP - General Family Medicine 04/16/23 Valdez Abebe MD [address] [place] [address] [email or web address] Insurance Assigned Provider 05/30/18 10/29/19 Hussein Vasquez MD [address] [place] [address] [place] [phone] [email or web address] Insurance Assigned Provider 10/29/19 01/05/20 Valdez Abebe MD [address] [place] [address] [email or web address] Assigned Provider 01/05/20 04/03/20 Hussein Vasquez MD [address] [facility] [address] [place] [id number] [email or web address] Assigned Provider 05/04/20 01/06/21 documented as of this encounter Additional Source Comments The information contained in this document represents components of the legal health record. It is not the complete legal health record.[facility]
--- OUTSIDE RECORDS SUMMARY | 2025-06-14 21:30 | XMS_ITS | Encounter Summary ---
Author Organization [facility] Address [address] [place] [address] [place] [address] Phone Care Team Providers Care Commercial Lines Account Assistant Name Role Phone Kassy Cool MD Primary Care Provider + [phone] Encounter Details Date Type Department Care Team (Late st Contact Info) Description 03/29/2022 Procedure Pass [facility], Ct Scan - [address] [address] Social History Tobacco Use Types Packs/Day Years [...] 1:20 PM EDT Shira Salomon RN * [place] Suicide Severity Rating Scale (Screener/Recent Self-Report) Question [...] Raiza Mclain, RN Note: 06/19/23: Resides @ [address] [place] [address] ([employer]) Dr. Cool's cell [phone] if needed Previous inpatient detox facilities: Razo Unit at [facility] is his preferred detox Formerly homeless Engage in recovery supports General No Carmen Peralta, BRICE Note: Dr. Cool states pt was in a temporary [facility]p run [facility] [place] for about 1 month Oct 2020 recently but he eloped from there. It is now closed. She requests that we add to his care plan to direct him to go directly to the usp clinic to see her upon ED if he arrives here on a Friday or , call her either way if he is in the ED [phone]. Also ask pt where he is sleeping [...] documented as of this encounter Care Teams Commercial Lines Account Assistant Relationship Specialty Start Date End Date Kassy Cool MD [address] [place] [address] [email or web address] PCP - General Family Medicine 04/16/23 documented as of this encounter Additional Source Comments The information contained in this document represents components of the legal health record. It is not the complete legal health record.[facility]
--- OUTSIDE RECORDS SUMMARY | 2025-06-14 21:30 | XMS_ITS | Encounter Summary ---
Author Organization [facility] Address [address] [place] [address] [place] [address] Phone Care Team Providers Care Dressing Room Porter Name Role Phone Kassy Cool MD Primary Care Provider + [phone] Encounter Details Date Type Department Care Team (Late st Contact Info) Description 12/17/2022 Procedure Pass [facility], Ct Scan - [address] [address] Social History Tobacco Use Types Packs/Day Years [...] 5:12 PM EDT Jenn Bland RN * [place] Suicide Severity Rating Scale (Screener/Recent Self-Report) Question [...] Raiza Mclain, RN Note: 06/19/23: Resides @ [address] [place] [address] ([employer]) Dr. Cool's cell [phone] if needed Previous inpatient detox facilities: Razo Unit at [facility] is his preferred detox Formerly homeless Engage in recovery supports General No Carmen Peralta, BRICE Note: Dr. Cool states pt was in a temporary [facility] run by [facility] in [place] for about 1 month Oct 2020 recently but he eloped from there. It is now closed. She requests that we add to his care plan to direct him to go directly to the [facility] clinic to see her upon ED if he arrives here on a Friday or , call her either way if he is in the ED [phone]. Also ask pt where he is sleeping [...] documented as of this encounter Care Teams Dressing Room Porter Relationship Specialty Start Date End Date Kassy Cool MD [address] [place] [address] PCP - General Family Medicine 04/16/23 documented as of this encounter Additional Source Comments The information contained in this document represents components of the legal health record. It is not the complete legal health record.[facility]
--- OUTSIDE RECORDS SUMMARY | 2025-06-14 21:30 | XMS_ITS | Encounter Summary ---
Author Organization [facility] Address [address] [place] [address] [place] [address] Phone Care Team Providers Care Architecture Manager Name Role Phone Kassy Cool MD Primary Care Provider + [phone] Encounter Details Date Type Department Care Team (Late st Contact Info) Description 04/01/2022 Procedure Pass [facility], Ct Scan - [address] [address] Social History Tobacco Use Types Packs/Day Years [...] 1:20 PM EDT Shira Salomon RN * [place] Suicide Severity Rating Scale (Screener/Recent Self-Report) Question [...] Raiza Mclain, RN Note: 06/19/23: Resides @ [address] [place] [address] ([employer]) Dr. Cool's cell [phone] if needed Previous inpatient detox facilities: Razo Unit at [facility] is his preferred detox Formerly homeless Engage in recovery supports General No Carmen Peralta, BRICE Note: Dr. Cool states pt was in a temporary skilled nursing run by [facility] in [place] for about 1 month Oct 2020 recently but he eloped from there. It is now closed. She requests that we add to his care plan to direct him to go directly to the skilled nursing clinic to see her upon ED if he arrives here on a Friday or , call her either way if he is in the ED [phone]. Also ask pt where he is sleeping [...] documented as of this encounter Care Teams Architecture Manager Relationship Specialty Start Date End Date Kassy Cool MD [address] [place] [address] [email or web address] PCP - General Family Medicine 04/16/23 documented as of this encounter Additional Source Comments The information contained in this document represents components of the legal health record. It is not the complete legal health record.[facility]"
--- OUTSIDE RECORDS SUMMARY | 2025-06-14 21:30 | XMS_ITS | Encounter Summary ---
Author Organization [facility] Address [address] [place] [address] [place] [address] Phone Care Team Providers Care Director Zone Name Role Phone Kassy Cool MD Primary Care Provider [phone] Pcp, Unknown Primary Care Provider UnavailKassy Jo MD Primary Care Provider + [phone] Encounter Details Date Type Department Care Team (Late st Contact Info) Description 07/17/2021 Procedure Pass [facility], Ct Scan - [address] [address] Social History Tobacco Use Types Packs/Day Years [...] Raiza Mclain, RN Note: 06/19/23: Resides @ [address] [place] [address] ([employer]) Dr. Cool's cell [phone] if needed Previous inpatient detox facilities: R[facility] Unit at [facility] is his preferred detox Formerly homeless Engage in recovery supports General No Yoselin Peraltaerine, RN Note: Dr. Cool states pt was in a temporary prison run by [facility] in [place] for about 1 month Oct 2020 recently but he eloped from there. It is now closed. She requests that we add to his care plan to direct him to go directly to the prison clinic to see her upon ED if he arrives here on a Friday or , call her either way if he is in the ED [phone]. Also ask pt where he is sleeping [...] as of this encounter Care Teams Director Zone Relationship Specialty Start Date End Date Kassy Cool MD [address] [place] [address] PCP - General Family Medicine 05/01/21 01/26/22 Pcp, Unknown PCP - General 01/27/22 03/04/22 Kassy Cool MD [address] [place] [address] PCP - General Family Medicine 04/16/23 documented as of this encounter Additional Source Comments The information contained in this document represents components of the legal health record. It is not the complete legal health record.[facility]
--- OUTSIDE RECORDS SUMMARY | 2025-06-14 21:30 | XMS_ITS | Encounter Summary ---
Author Organization [facility] Address [address] [place] [address] [place] [address] Phone Care Team Providers Care Certified Neurodiagnostic Technologist Name Role Phone Kassy Cool MD Primary Care Provider + [phone] Pcp, Unknown Primary Care Provider Unavailabl e Kassy Cool MD Primary Care Provider + [phone] Encounter Details Date Type Department Care Team (Late st Contact Info) Description 01/24/2022 Procedure Pass [facility], Ct Scan - [address] [address] Social History Tobacco Use Types Packs/Day Years [...] 9:39 PM EDT Tracey Wilson RN * [place] Suicide Severity Rating Scale (Screener/Recent Self-Report) Question [...] Raiza Mclain RN Note: 06/19/23: Resides @ [address] [place] [address] ([employer]) Dr. Cool's cell [phone] if needed Previous inpatient detox facilities: R[facility] Unit at [facility] is his preferred detox Formerly homeless Engage in recovery supports General No Carmen Peralta RN Note: Dr. Cool states pt was in a temporary nursing home run by [facility] in [place] for about 1 month Oct 2020 recently but he eloped from there. It is now closed. She requests that we add to his care plan to direct him to go directly to the nursing home clinic to see her upon ED if he arrives here on a Friday or , call her either way if he is in the ED [phone]. Also ask pt where he is sleeping [...] documented as of this encounter Care Teams Certified Neurodiagnostic Technologist Relationship Specialty Start Date End Date Kassy Cool MD [address] [place] [address] [email or web address] PCP - General Family Medicine 05/01/21 01/26/22 Pcp, Unknown PCP - General 01/27/22 03/04/22 Kassy Cool MD [address] [place] [address] PCP - General Family Medicine 04/16/23 documented as of this encounter Additional Source Comments The information contained in this document represents components of the legal health record. It is not the complete legal health record.[facility]
--- OUTSIDE RECORDS SUMMARY | 2025-06-14 21:30 | XMS_ITS | Encounter Summary ---
Author Organization [facility] Address [address] [place] [address] Phone Care Team Providers Care Machine Rigger Name Role Phone Pcp, Unknown Primary Care Provider Kassy Pollack MD Primary Care Provider [phone] Encounter Details Date Type Department Care Team (Late st Contact Info) Description 03/01/2022 Procedure Pass [facility], Ct Scan - [address] [address] Social History Tobacco Use Types Packs/Day Years [...] 11:02 AM EDT Rosio Leavitt RN * [place] Suicide Severity Rating Scale (Screener/Recent Self-Report) Question Answer Date of Assessment Author 1. Wish to be (Past 1 Month) No 03/01/2022 11:02 AM EDT Rosio Leavitt RN 2. Non-Specific Active Suici nacho Thoughts (Past 1 Month) No 03/01/2022 11:02 AM EDT [place], [place] sey J, RN 6. Suicidal Behavior (Lifetime) No 11:02 AM EDT Roiso Leavitt RN documented as of this encounter Plan of Treatment Not on file documented as of this encounter Goals Goal Patient Goal Type Associated Problems Recent Progress Patient-Stated? Author Acute Care Plan Acute Care Plan No Raiza Mclain RN Note: 06/19/23: Resides @ [address] [place] [address] ([employer]) Dr. Cool's cell [phone] if needed Previous inpatient detox facilities: Razo Unit at [facility] is his preferred detox Formerly homeless Engage in recovery supports General No Carmen Peralta, BRICE Note: Dr. Cool states pt was in a temporary detention run by [facility]NOTE [facility] in [place] for about 1 month Oct 2020 recently but he eloped from there. It is now closed. She requests that we add to his care plan to direct him to go directly to the detention clinic to see her upon ED if he arrives here on a Friday or , call her either way if he is in the ED [phone]. Also ask pt where he is sleeping [...] documented as of this encounter Care Teams Machine Rigger Relationship Specialty Start Date End Date Pcp, Unknown PCP - General 01/27/22 03/04/22 Kassy Cool MD [address] [place] [address] PCP - General Family Medicine 04/16/23 documented as of this encounter Additional Source Comments The information contained in this document represents components of the legal health record. It is not the complete legal health record.[facility]
--- OUTSIDE RECORDS SUMMARY | 2025-06-14 21:30 | XMS_ITS | Encounter Summary ---
Author Organization [facility] Address [address] [place] [address] Phone Care Team Providers Care High School Vice Principal Name Role Phone Kiya Valenzuela FIELD INTERVIEWER Primary Care Provider Valdez Abebe MD Unavailable [phone] Valdez Abebe MD Primary Care Provider Kiya Valenzuela FIELD INTERVIEWER Primary Care Provider Hussein Vasquez MD Unavailable Valdez Abebe MD Unavailable [phone] Hussein Vasquez MD Unavailable Kiya Valenzuela FIELD INTERVIEWER Primary Care Provider Kassy Cool MD Primary Care Provider + [phone] Pcp, Unknown Primary Care Provider Unavailabl e Kassy Cool MD Primary Care Provider + [phone] Encounter Details Date Type Department Care Team (Late st Contact Info) Description 04/23/2018 Procedure Pass [facility], Ct Scan - [facility] [address] [place] [address] Social History Tobacco Use Types Packs/Day Years [...] documented as of this encounter Care Teams High School Vice Principal Relationship Specialty Start Date End Date Kiya Valenzuela NP [address] [place] [address] [email or web address] PCP - General Family Medicine 5/1/18 9/10/18 Valdez Abebe MD [address] [place] [address] [email or web address] PCP - General Family Medicine 06/09/18 09/02/19 Kiya Valenzuela FIELD INTERVIEWER [address] [place] [address] [email or web address] PCP - General Family Medicine 09/03/19 10/07/20 Kiya Valenzuela NP [address] [place] [address] [email or web address] PCP - General Family Medicine 10/08/20 04/30/21 Kassy Cool MD [address] [place] [address] [email or web address] PCP - General Family Medicine 05/01/21 01/26/22 Pcp, Unknown PCP - General 01/27/22 03/04/22 Kassy Cool MD [address] [place] [address] [email or web address] PCP - General Family Medicine 04/16/23 Valdez Abebe MD [address] [place] [address] [email or web address] Insurance Assigned Provider 05/30/18 10/29/19 Hussein Vasquez MD [address] [place] [address] [address] [place] [phone] [email or web address] Insurance Assigned Provider 10/29/19 01/05/20 Valdez Abebe MD [address] [place] [address] [email or web address] Insurance Assigned Provider 01/05/20 04/03/20 Hussein Vasquez MD [address] [place] [address] [phone] [email or web address] Insurance Assigned Provider 05/04/20 01/06/21 documented as of this encounter Additional Source Comments The information contained in this document represents components of the legal health record. It is not the complete legal health record.[facility]
--- OUTSIDE RECORDS SUMMARY | 2025-06-14 21:30 | XMS_ITS | Encounter Summary ---
Author Organization [facility] Address [address] [place] [address] [place] [address] Phone Care Team Providers Care Crm Campaign Manager Name Role Phone Kassy Cool MD Primary Care Provider + [phone] Encounter Details Date Type Department Care Team (Late st Contact Info) Description 04/01/2022 Procedure Pass [facility], Ct Scan - [address] [address] Social History Tobacco Use Types Packs/Day Years [...] 1:20 PM EDT Shira Salomon RN * [place] Suicide Severity Rating Scale (Screener/Recent Self-Report) Question [...] Raiza Mclain, RN Note: 06/19/23: Resides @ [address] [place] [address] ([employer]) Dr. Cool's cell [phone] if needed Previous inpatient detox facilities: [facility] at [facility] is his preferred detox Formerly homeless Engage in recovery supports General No Camren Peralta, BRICE Note: Dr. Cool states pt was in a temporary fci run by [facility] in [place] for about 1 month Oct 2020 recently but he eloped from there. It is now closed. She requests that we add to his care plan to direct him to go directly to the fci clinic to see her upon ED if he arrives here on a Friday or , call her either way if he is in the ED [phone]. Also ask pt where he is sleeping [...] documented as of this encounter Care Teams Crm Campaign Manager Relationship Specialty Start Date End Date Kassy Cool MD [address] [place] [address] PCP - General Family Medicine 04/16/23 documented as of this encounter Additional Source Comments The information contained in this document represents components of the legal health record. It is not the complete legal health record.[facility]
--- OUTSIDE RECORDS SUMMARY | 2025-06-14 21:30 | XMS_ITS | Encounter Summary ---
Author Organization [facility] Address [address] [place] [address] [place] [address] Phone Care Team Providers Care Deputy K 9 Name Role Phone Kassy Cool MD Primary Care Provider + [phone] Pcp, Unknown Primary Care Provider Unavailabl e Kassy Cool MD Primary Care Provider + [phone] Encounter Details Date Type Department Care Team (Late st Contact Info) Description 07/28/2021 Procedure Pass [facility], Ct Scan - [address] [address] Social History Tobacco Use Types Packs/Day Years [...] 5:31 PM EDT Cindy Reyes RN * [place] Suicide Severity Rating Scale (Screener/Recent Self-Report) Question [...] Raiza Mclain, RN Note: 06/19/23: Resides @ [address] [place] [address] ([employer]) Dr. Cool's cell [phone] if needed Previous inpatient detox facilities: R[facility] Unit at [facility] is his preferred detox Formerly homeless Engage in recovery supports General No Carmen Peralta, BRICE Note: Dr. Cool states pt was in a [place] run by [facility] in [place] for about 1 month Oct 2020 recently but he eloped from there. It is now closed. She requests that we add to his care plan to direct him to go directly [place] the [place] [facility] to see her upon ED if he arrives here on a Friday or , call her either way if he is in the ED [phone]. Also ask pt where he is sleeping [...] documented as of this encounter Care Teams Deputy K 9 Relationship Specialty Start Date End Date Kassy Cool MD [address] [place] [address] PCP - General Family Medicine 05/01/21 01/26/22 Pcp, Unknown PCP - General 01/27/22 03/04/22 Kassy Cool MD [address] [place] [address] [email or web address] PCP - General Family Medicine 04/16/23 documented as of this encounter Additional Source Comments The information contained in this document represents components of the legal health record. It is not the complete legal health record.[facility]
--- OUTSIDE RECORDS SUMMARY | 2025-06-14 21:30 | XMS_ITS | Encounter Summary ---
Author Organization [facility] Address [address] [place] [address] Phone Care Team Providers Care Cuff Setter Overlock Name Role Phone Pcp, Unknown Primary Care Provider Kassy Pollack MD Primary Care Provider [phone] Encounter Details Date Type Department Care Team (Late st Contact Info) Description 03/01/2022 Procedure Pass [facility], Ct Scan - [address] [address] Social History Tobacco Use Types Packs/Day Years [...] 11:02 AM EDT Rosio Leavitt RN * [place] Suicide Severity Rating Scale (Screener/Recent Self-Report) Question Answer Date of Assessment Author 1. Wish to be (Past 1 Month) No 03/01/2022 11:02 AM EDT Rosio Leavitt RN 2. Non-Specific Active Suici nacho Thoughts (Past 1 Month) No 03/01/2022 11:02 AM EDT Emeigh, [place] sey J, RN 6. Suicidal Behavior (Lifetime) No 11:02 AM EDT Rosio Leavitt RN documented as of this encounter Plan of Treatment Not on file documented as of this encounter Goals Goal Patient Goal Type Associated Problems Recent Progress Patient-Stated? Author Acute Care Plan Acute Care Plan No Raiza Mclain RN Note: 06/19/23: Resides @ [address] [place] [address] ([employer]) Dr. Cool's cell [phone] if needed Previous inpatient detox facilities: [facility] at [facility] is his preferred detox Formerly homeless Engage in recovery supports General No Carmen Peralta, BRICE Note: Dr. Cool states pt was in [place] [facility] by [facility] in [place] for about 1 month Oct 2020 recently but he eloped from there. It is now closed. She requests that we add to his care plan to direct him to go directly to the [place] [facility] [place] to see her upon ED if he arrives here on a Friday or , call her either way if he is in the ED [phone]. Also ask pt where he is sleeping [...] documented as of this encounter Care Teams Cuff Setter Overlock Relationship Specialty Start Date End Date Pcp, Unknown PCP - General 01/27/22 03/04/22 Kassy Cool MD [address] [place] [address] PCP - General Family Medicine 04/16/23 documented as of this encounter Additional Source Comments The information contained in this document represents components of the legal health record. It is not the complete legal health record.[facility]
--- OUTSIDE RECORDS SUMMARY | 2025-06-14 21:31 | XMS_ITS | Encounter Summary ---
Author Organization [facility] Address [address] [place] [address] [place] [address] Phone Care Team Providers Care Turkish Rubber Name Role Phone Kiya Valenzuela NP Primary Care Provider Hussein Vasquez MD Unavailable Kiya Valenzuela SYSTEMS SOFTWARE DEVELOPER Primary Care Provider Kassy Cool MD Primary Care Provider Pcp, Unknown Primary Care Provider Unavailabl e Kassy Cool MD Primary Care Provider Encounter Details Date Type Department Care Team (Late st Contact Info) Description 05/15/2020 Procedure Pass [facility], Ct Scan - [address] [address] Social History Tobacco Use Types Packs/Day Years Used Date Smoking Tobacco: Every Day Cigarettes Smokeless Tobacco: Never Alcohol Use Standard Drinks/Week Comments Yes 0 (1 standard drink = 0.6 oz pur e alcohol) 10-15 nips daily Sex and Gender Information Value Date Recorded [...] 01/02/2017 11/13/2022 1:[address] CoV-Risk 05/17/2020 05/17/2020 05/31/2020 1:24 AM EDT [...] documented as of this encounter Care Teams Turkish Rubber Relationship Specialty Start Date End Date Kiya Valenzuela NP [address] [place] [address] [email or web address] PCP - General Family Medicine 09/03/19 10/07/20 Kiya Valenzuela NP [address] [place] [address] [email or web address] PCP - General Family Medicine 10/08/20 04/30/21 Kassy Cool MD [address] [place] [address] [email or web address] PCP - General Family Medicine 05/01/21 01/26/22 Pcp, Unknown PCP - General 01/27/22 03/04/22 Kassy Cool MD 70 [place] [address] [email or web address] PCP - General Family Medicine 04/16/23 Hussein Vasquez MD [address] [facility] [address] [place] [address] [email or web address] Insurance Assigned Provider 05/04/20 01/06/21 documented as of this encounter Additional Source Comments The information contained in this document represents components of the legal health record. It is not the complete legal health record.[facility]
--- OUTSIDE RECORDS SUMMARY | 2025-06-14 21:31 | XMS_ITS | Encounter Summary ---
Author Organization [facility] Address [address] [place] [address] [place] [address] Phone Care Team Providers Care Power Truck Driver Name Role Phone Kiya Valenzuela NP Primary Care Provider Hussein Vasquez MD Unavailable Kiya Valenzuela BUSINESS OBJECTS REPORT DEVELOPER Primary Care Provider Kassy Cool MD Primary Care Provider Pcp, Unknown Primary Care Provider Unavailabl e Kassy Cool MD Primary Care Provider Encounter Details Date Type Department Care Team (Late st Contact Info) Description 05/16/2020 Procedure Pass [facility], Ct Scan - [address] [address] Social History Tobacco Use Types Packs/Day Years [...] documented as of this encounter Care Teams Power Truck Driver Relationship Specialty Start Date End Date Kiya Valenzuela NP [address] [place] [address] [email or web address] PCP - General Family Medicine 09/03/19 10/07/20 Kiya Valenzuela NP [address] [place] [address] [email or web address] PCP - General Family Medicine 10/08/20 04/30/21 Kassy Cool MD [address] [place] [address] [email or web address] PCP - General Family Medicine 05/01/21 01/26/22 Pcp, Unknown PCP - General 01/27/22 03/04/22 Kassy Cool MD 70 [place] [address] [email or web address] PCP - General Family Medicine 04/16/23 Husseni Vasquez MD 230 [facility] [address] [place] [address] [email or web address] Assigned Provider 05/04/20 01/06/21 documented as of this encounter Additional Source Comments The information contained in this document represents components of the legal health record. It is not the complete legal health record.[facility]
--- OUTSIDE RECORDS SUMMARY | 2025-06-14 21:31 | XMS_ITS | Encounter Summary ---
Author Organization [facility] Address [address] [address] Care Team Providers Care Special Projects Manager Name Role Phone Jackie Maier Unavailable Unavailable Kassy Cool MD Primary Care Provider [phone] Mel Erazo Unavailable Unavailable Constance Lozada Unavailable Reason for Visit * Reason Comments Med Change Request Encounter Details Date Type Department Care Team (Late st Contact Info) Description 08/12/2024 Refill [facility] [address] [place] [address] Kassy Cool MD [address] [place], [place] Alcohol use disorder, severe, in early remission (CMS/HCC) Social History Tobacco Use Types Packs/Day Years Used Date Smoking Tobacco: Every Day Cigarettes Smokeless Tobacco: Never Alcohol Use Standard Drinks/Week Comments Not Currently 0 (1 standard drink = 0.6 oz pur e alcohol) Sex and Gender Information Value Date Recorded Sex Assigned at Male 10/04/2022 10:35 AM EST Legal Sex Male 8:33 PM EDT Gender Identity Male 10/04/2022 10:35 AM EST Sexual Orientation Don't know 10/04/2022 10 :35 AM EST documented as of this encounter Plan of Treatment Not on file documented as of this encounter Visit Diagnoses Diagnosis Alcohol use disorder, severe, in early remission (CMS/HCC) documented in this encounter Care Teams Special Projects Manager Relationship Specialty Start Date End Date Kassy Cool MD [address] [place] [address] PCP - General Family Medicine 10/09/22 Jackie Maier Health Navigator Case Management 10/09/22 Mel Erazo Community Health Worker Case Management 10/30/22 Constance Lozada 02/24/25 04/29/25 documented as of this encounter
--- OUTSIDE RECORDS SUMMARY | 2025-06-14 21:31 | XMS_ITS | Clinical Summary ---
Author Organization [facility] Address [address] [facility] 7 [place] [address] Care Team Providers Care Hinging Machine Operator Name Role Phone DarrionJackie Unavailable Unavailable Kassy Cool MD Primary Care Provider [phone] Mel Erazo Unavailable Unavailable Allergies Active Allergy Reactions Criticality Noted Date Comments Aspirin 05/16/2019 Ibuprofen Rash Low 10/09/2022 Medications * This document contains information received from the source organization and may not represent a complete record from that organization. FLUoxetine (PROzac) 20 MG capsuleIndications :Chronic posttraumatic stress disorder Take 1 capsule (20 mg) by mouth Once per day. 30 capsule 11 4 Active gabapentin (Neurontin) 600 MG tabletIndications: Chronic pain syndrome Take 1 tablet (600 mg) by mouth 2 times daily. 60 tablet 5 4 Active levETIRAcetam (Keppra) 1000 MG tablet TAKE 1 TABLET (1,000 MG TOTAL) BY MOUTH 2 (TWO) TIMES A DAY FOR 7 DAYS. 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 Over all doing well. Memory deficit 10/09/2022 Assessment & Plan (11/11/2022 9:53 AM EST): Unable to state the year today. States it is 2021. Will need a calendar in his room and frequent orientation. Alcohol use disorder, severe, in early remission 10/09/2022 Assessment & Plan (10/09/2022 10:23 AM EST): JUST released from [place] on 10/03. Now sleeping on the street. Already has been seen in the ER for issues. States he has stayed sober and just had a seizure. Nonintractable generalized i diopathic epilepsy without status epilepticus 10/09/2022 Assessment & Plan (10/09/2022 10:20 AM EST): Recent ED visit for seizure. Does not have keppra. Needs Keppra. STAT. Sent to [facility] and gave info to pt brother. Unsheltered homelessness 10/09/2022 Assessment & Plan (11/11/2022 9:54 AM EST): Wants a light blue room. Assessment & Plan (10/09/2022 10:27 AM EST): [facility] [place] [facility]. Opening imminently. Pt aware and agrees to placement today. He is outdoors and has absolutely no access to income. Booked to stay at [facility], so he will get at least breakfast daily. Thanks Kassy, your reservation is confirmed! We v e emailed your confirmation to There s no need to call us to reconfirm. Enjoy your stay! Itinerary number: [phone] Center Aisle Cashier for [facility] made aware of pt location Extreme poverty 10/09/2022 Overview (11/21/2022): Pt has no income. SSI needs to be turned back on. Working with [facility] on this. Assessment & Plan (10/09/2022 10:26 AM EST): Brought proof of release from [place]. Took copy and will fax to SSI [place] office. Patient instructed MULTIPLE times to call [employer]SI and ask for benefits to be reinstated. Pt has the phone number. Reminded that he will have a phone in his hotel room to use. Encounters Date Type Department Care Team Description 05/26/2025 8:30 AM EDT Home Visit Tariq [facility] [address] [place] [address] Kassy Cool MD Alcohol use disorder, severe, in early remission (CMS/HCC) (Primary Dx); Seizure after head injury (CMS/HCC); Encounter for medication management 05/26/2025 Patient Outreach [facility] [address] [place] [address] Lyndon Garcia 05/03/2025 Patient Outreach [facility] [address] [place] [address] Lyndon Garcia 04/29/2025 Patient Outreach [facility] [address] [place] [address] Constance Lozada care management (Notification of Closed RN Care Management //[facility] Member Manpreet Miranda Angela 1965 has closed services as Lost Contact . /Member transferred to Other:unable to reach//senior case manager: Constance Lozada clinical personal caregiver) 03/30/2025 Patient Outreach [facility] [address] [place] [address] Lyndon Garcia 03/28/2025 Patient Outreach [facility] [address] [place] [address] Constance Lozada 03/23/2025 Patient Outreach [facility] [address] [place] [address] Lyndon Garcia 03/21/2025 Patient Outreach [facility] [address] [place] [address] Constance Lozada 03/21/2025 Patient Outreach [facility] [address] [place] [address] Constance Lozada 03/16/2025 Patient Outreach [facility] [address] [place] [address] Lyndon Garcia from Last 3 Months Immunizations Immunization Administration Dates Next Due Influenza injectable quadriv alent preservative free 09/14/2020,11/09/2019,07/14/2019,06/18 Influenza, IIV3, injectable 09/23/2024,1 ,05/13/2011,12/07 Nataly SARS-CoV-2 Vaccination 06/06/2021 Moderna Covid-19 Vaccine 12+ 09/23/2024,10/04/19 22,11/09/2020 Pneumococcal Polysaccharide PPSV23 07/09/2014 Tdap 05/30/2021,06/02/2018,01/14/2014 Tetanus Toxoid, Unspecified 12/07/2010, 0 Family History Relation Name Status Comments Father Mother Social History Tobacco Use Types Packs/Day Years Used Date Smoking Tobacco: Every Day Cigarettes Smokeless Tobacco: Never Tobacco Cessation:Ready to Q uit: Not Asked; Counseling Given: Not Answered Alcohol Use Standard Drinks/Week Comments Not Currently 0 (1 standard drink = 0.6 oz pur e alcohol) Sex and Gender Information Value Date Recorded Sex Assigned at Male 10/04/2022 10:35 AM EST Legal Sex Male 8:33 PM EDT Gender Identity Male 10/04/2022 10:35 AM EST Sexual Orientation Don't know 10/04/2022 10 :35 AM EST Last Filed Vital Signs Vital Sign Reading Time Taken Comments Blood Pressure 108/70 12/13/2022 9:53 AM EDT Pulse 96 12/13/2022 9:53 AM EDT Temperature 36.4 C (97.6 F) 12/13/2022 9:53 AM EDT Respiratory Rate 16 11/11/2022 9:39 AM EST Oxygen Saturation 97% 11/11/2022 9:39 AM EST Inhaled Oxygen Concentration - - Weight 83.9 kg (185 lb) 12/13/2022 9:53 AM EDT Height 182.9 cm (6') 12/13/2022 9:53 AM EDT Body Mass Index 25.09 12/13/2022 9:53 AM EDT Plan of Treatment Health Maintenance Due Date Last Done Comments CT Colonography 1965 Colonoscopy 1965 Colorectal Cancer Screening 1965 Depression Screening 1964 FIT DNA/Cologuard 1964 FIT 1964 FOBT 1965 HIV Screening 1965 SDOH Screening 1965 Sigmoidoscopy 1965 Disability Screening 1964 Alcohol/Substance Use Screening 1976 Hepatitis C Screening 1982 Zoster Vaccines (1 of 2) 2014 Pneumococcal Vaccine: 50+ Years (2 of 2 - PCV) 07/09/2015 07/09/2014 Tobacco Screening 10/09/2023 10/09/2022 RSV Patients and Patients Aged 60 years or older (1 - Risk 60-74 years 1-dose series) 2024 Influenza Vaccine (#1) 2025 , 09/23/2024, 09/14/2020, Additional history exists Lipid Panel 12/12/2026 12/12/2021 DTaP/Tdap/Td Vaccines (4 - Td or Tdap) 05/30/2031 05/30/2021, 06/02/2018, 01/14/2014, Additional history exists COVID-19 Vaccine Completed 09/23/2024, 02/2022, 06/06/2021, Additional history exists HIB Vaccines Aged Out No longer eligi ble based on patient's age to complete this topic HPV Vaccines Aged Out No longer eligi ble based on patient's age to complete this topic Hepatitis A Vaccines Aged Out No long er eligible based on patient's age to complete this topic Hepatitis B Vaccines Aged Out No long er eligible based on patient's age to complete this topic IPV Vaccines Aged Out No longer eligi ble based on patient's age to complete this topic Meningococcal B Vaccine Aged Out No l onger eligible based on patient's age to complete this topic Meningococcal Vaccine Aged Out No elena khushbu eligible based on patient's age to complete this topic RSV under 20 months Aged Out No longe r eligible based on patient's age to complete this topic Rotavirus Vaccines Aged Out No longer eligible based on patient's age to complete this topic Procedures Procedure Name Priority Date/Time Associated Diagnosis Comments LIPID PANEL, STANDARD Routine 12/12/2021 from Last 3 Months or Most Recently Relevant to Health Maintenance Results * (ABNORMAL) Lipid Panel, Standard (12/12/2021) Triglycerides 350(A) 40 - 160 mg/dL Cholesterol 169 0 - 200 mg/dL HDL Cholesterol 55 35 - 70 mg/dL LDL Cholesterol 44 mg/dL Blood Venous blood specimen / Unknown [facility] Provider LAB BLOOD ORDERABLES Fiorella l Result from Last 3 Months or Most Recently Relevant to Health Maintenance Insurance [employer] Care Teams Hinging Machine Operator Relationship Specialty Start Date End Date Kassy Cool MD [address] [place] [address] PCP - General Family Medicine 10/09/22 Jackie Maier Health Navigator Case Management 10/09/22 Mel Erazo Community Health Worker Case Management 10/30/22
--- OUTSIDE RECORDS SUMMARY | 2025-06-14 21:31 | XMS_ITS | Encounter Summary ---
Author Organization [facility] Address [address] [place] [address] [place] [address] Phone Care Team Providers Care Licensing Director Name Role Phone Kiya Valenzuela NP Primary Care Provider Hussein Vasquez MD Unavailable Kiya Valenzuela NP Primary Care Provider Kassy Cool MD Primary Care Provider Pcp, Unknown Primary Care Provider Unavailabl e Kassy Cool MD Primary Care Provider [phone] Encounter Details Date Type Department Care Team (Late st Contact Info) Description 06/11/2020 Procedure Pass [facility], Ct Scan - [address] [address] Social History Tobacco Use Types Packs/Day Years [...] 01/02/2017 11/13/2022 1:[address] CoV-Risk Comment:Per note documentation 10/08/2020 10/08/2020 8:01 [...] documented as of this encounter Care Teams Licensing Director Relationship Specialty Start Date End Date Kiya Valenzuela NP [address] [place] [address] [email or web address] PCP - General Family Medicine 09/03/19 10/07/20 Kiya Valenzuela NP [address] [place] [address] [email or web address] PCP - General Family Medicine 10/08/20 04/30/21 Kasys Cool MD [address] [place] [address] [email or web address] PCP - General Family Medicine 05/01/21 01/26/22 Pcp, Unknown PCP - General 01/27/22 03/04/22 Kassy Cool MD [address] [place] [address] [email or web address] PCP - General Family Medicine 04/16/23 Hussein Vasquez MD [address] [facility] [address] [place] [address] [email or web address] Insurance Assigned Provider 05/04/20 01/06/21 documented as of this encounter Additional Source Comments The information contained in this document represents components of the legal health record. It is not the complete legal health record.[facility]
--- OUTSIDE RECORDS SUMMARY | 2025-06-14 21:31 | XMS_ITS | Encounter Summary ---
Author Organization [facility] Address [address] [facility] [address] [place] [address] Phone Care Team Providers Care Supervisor Train Operations Name Role Phone Kassy Cool MD Primary Care Provider + [phone] Encounter Details Date Type Department Care Team (Late st Contact Info) Description 04/30/2025 Procedure Pass [facility], Ct Scan - [facility] [address] [place] [address] Social History Tobacco Use Types Packs/Day Years Used Date Smoking Tobacco: Every Day Cigarettes Smokeless Tobacco: Never Alcohol Use Standard Drinks/Week Comments Yes 0 (1 standard drink = 0.6 oz pure alcohol) 10-15 nips daily and 3, 24 oz beers Education Answer Date Recorded Are you interested in more education? Not on talat e 01/24/2023 Are you concerned about learning? Not on file 01/24/2023 No 01/24/2023 No 01/24/2023 Food Answer Date Recorded Within the past 6 months we worried whether our food would run out before we got money to buy more. I choose not to answer 04/26/2025 Within the past 6 months the food we bought just didn't last and we didn't have enough money to get more. I choose not to answer 04/26/2025 Residential Stability Answer Date Recor ded What is your housing situation today? I choose n ot to answer 04/26/2025 How many times have you move d in the past 12 months? I choose not to answer 04/26/2025 Paying for Meds Answer Date Recorded Do you have trouble paying for medicines? I carmen se not to answer 04/26/2025 Paying Utility Bills Answer Date Record ed Do you have trouble paying y our heating or electricity bill? I choose not to answer 04/26/2025 Transportation Answer Date Recorded Has the lack of transportati on kept you from medical appointments or from getting medications? I choose not to answer 04/26/2025 Digital Access Answer Date Recorded No 04/26/2025 No 04/26/2025 Do you have reliable internet access at home? I choose not to answer 04/26/2025 Do you have a device (e.g., phone, tablet, computer) with a working camera? I choose not to answer 04/26/2025 Intimate Partner Violence Answer Date R ecorded Are you denied basic needs s uch as food, clothing, or medical care? No 04/30/2025 In the past 12 months have y ou been in a relationship with a person who hurts, threatens, or tries to control you? No 04/30/2025 Are you denied basic needs s uch as food, clothing, or medical care? No 04/30/2025 In the past 12 months have y ou been in a relationship with a person who hurts, threatens, or tries to control you? No 04/30/2025 Sex and Gender Information Value Date Recorded Sex Assigned at Male 12/21/2017 8:18 PM EDT Legal Sex Male 9:43 PM EDT Gender Identity Male 12/21/2017 8:18 PM EDT Sexual Orientation Straight 01/14/2018 1: 04 AM EDT documented as of this encounter Functional Status * Calculated C-SSRS Risk Score (Lifetime/Recent) Answer Date of Assessment Author No Risk Indicated 04/30/2025 7:47 AM EDT Kinsey Platt RN * [place] Suicide Severity Rating Scale (Screener/Recent Self-Report) Question Answer Date of Assessment Author 1. Wish to be (Past 1 Month) No 025 7:47 AM EDT Kinsey Platt RN 2. Non-Specific Active Suici nacho Thoughts (Past 1 Month) No 04/30/2025 7:47 AM EDT Kinsey Platt RN 6. Suicidal Behavior (Lifetime) No 7:47 AM EDT Kinsey Platt RN documented as of this encounter Plan of Treatment Not on file documented as of this encounter Goals Goal Patient Goal Type Associated Problems Recent Progress Patient-Stated? Author Acute Care Plan Acute Care Plan No Raiza Mclain, RN Note: 06/19/23: Resides @ [address] [place] [address] ([employer]) Dr. Cool's cell [phone] if needed Previous inpatient detox facilities: R[facility] Unit at [facility] is his preferred detox Formerly homeless Engage in recovery supports General No Carmen Peralta, RN Note: Dr. Cool states pt was in a temporary assisted run by [facility] in [place] for about 1 month Oct 2020 recently but he eloped from there. It is now closed. She requests that we add to his care plan to direct him to go directly to the assisted clinic to see her upon ED if he arrives here on a Friday or , call her either way if he is in the ED [phone]. Also ask pt where he is sleeping currently so she can track him down. documented as of this encounter Visit Diagnoses Not on filedocumented in this encounter Additional Health Concerns Infection Onset Date Last Indicated Resolved Time CoV-Risk 04/26/2025 04/26/2025 05/07/2025 1:21 AM EDT documented as of this encounter Care Teams Supervisor Train Operations Relationship Specialty Start Date End Date Kassy Cool MD 70 [place] [address] [email or web address] PCP - General Family Medicine 04/16/23 documented as of this encounter Additional Source Comments The information contained in this document represents components of the legal health record. It is not the complete legal health record.[facility]
--- OUTSIDE RECORDS SUMMARY | 2025-06-14 21:31 | XMS_ITS | Encounter Summary ---
Author Organization [facility] Address [address] [facility] [address] [place] [address] Phone Care Team Providers Care Supervisor Varnish Name Role Phone Kassy Cool MD Primary Care Provider + [phone] Encounter Details Date Type Department Care Team (Late st Contact Info) Description 05/06/2025 Procedure Pass [facility], Ct Scan - [facility] [address] [place] [address] Social History Tobacco Use Types Packs/Day Years [...] before we got money to buy more. Unable to assess 025 Within the past 6 months the food we bought just didn't last and we didn't have enough money to get more. Unable to assess 05/06/2025 Residential Stability Answer Date Recor ded What is your housing situation today? Unable to assess 05/06/2025 How many times have you moved in the past 12 mon ths? Unable to assess 05/06/2025 Paying for Meds Answer Date Recorded Do you have trouble paying for medicines? Unable to assess 05/06/2025 Paying Utility Bills Answer Date Record ed Do you have trouble paying y our heating or electricity bill? Unable to assess 05/06/2025 Transportation Answer Date Recorded Has the lack of transportati on kept you from medical appointments or from getting medications? Unable to assess 05/06/2025 Digital Access Answer Date Recorded No 05/06/2025 No 05/06/2025 Do you have reliable internet access at home? Un able to assess 05/06/2025 Do you have a device (e.g., phone, tablet, computer) with a working camera? Unable to assess 05/06/2025 Intimate Partner Violence Answer Date R ecorded Are you denied basic needs s uch as food, clothing, or medical care? No 05/06/2025 In the past 12 months have y ou been in a relationship with a person who hurts, threatens, or tries to control you? No 05/06/2025 Are you denied basic needs s uch as food, clothing, or medical care? No 05/06/2025 In the past 12 months have y ou been in a relationship with a person who hurts, threatens, or tries to control you? No 05/06/2025 Sex and Gender Information Value Date Recorded Sex Assigned at Male 12/21/2017 8:18 PM EDT Legal Sex Male 9:43 PM EDT Gender Identity Male 12/21/2017 8:18 PM EDT Sexual Orientation Straight 01/14/2018 1: 04 AM EDT documented as of this encounter Functional Status * Calculated C-SSRS Risk Score (Lifetime/Recent) Answer Date of Assessment Author No Risk Indicated 05/06/2025 8:17 AM EDT Ofelia Espinal RN * [place] Suicide Severity Rating Scale (Screener/Recent Self-Report) Question Answer Date of Assessment Author 1. Wish to be (Past 1 Month) No 05/06/2025 8:17 AM EDT Ofelia Espinal, BRICE 2. Non-Specific Active Suici nacho Thoughts (Past 1 Month) No 05/06/2025 8:17 AM EDT Ofelia Espinal, BRICE 6. Suicidal Behavior (Lifetime) No 8:17 AM EDT Ofelia Espinal, RN documented as of this encounter Plan of Treatment Not on file documented as of this encounter Goals Goal Patient Goal Type Associated Problems Recent Progress Patient-Stated? Author Acute Care Plan Acute Care Plan No Raiza Mclain, RN Note: 06/19/23: Resides @ [address] [place] [address] ([employer]) Dr. Cool's cell [phone] if needed Previous inpatient detox facilities: Razo Unit at [facility] is his preferred detox Formerly homeless Engage in recovery supports General No Carmen Peralta, BRICE Note: Dr. Cool states pt was in a temporary mcc run by [facility] in [place] for about 1 month Oct 2020 recently but he eloped from there. It is now closed. She requests that we add to his care plan to direct him to go directly to the m[facility] clinic to see her upon ED if he arrives here on a Friday or , call her either way if he is in the ED [phone]. Also ask pt where he is sleeping currently so she can track him down. documented as of this encounter Visit Diagnoses Not on filedocumented in this encounter Additional Health Concerns Infection Onset Date Last Indicated Resolved Time CoV-Risk 04/26/2025 04/26/2025 05/07/2025 1:21 AM EDT documented as of this encounter Care Teams Supervisor Varnish Relationship Specialty Start Date End Date Kassy Cool MD [address] [place] [address] PCP - General Family Medicine 04/16/23 documented as of this encounter Additional Source Comments The information contained in this document represents components of the legal health record. It is not the complete legal health record.[facility]
--- OUTSIDE RECORDS SUMMARY | 2025-06-14 21:31 | XMS_ITS | Encounter Summary ---
Author Organization [facility] Address [address] [facility] [address] [place] [address] Phone Care Team Providers Care Datacap Developer Name Role Phone Kassy Cool MD Primary Care Provider + [phone] Encounter Details Date Type Department Care Team (Late st Contact Info) Description 04/30/2025 Procedure Pass [facility], Ct Scan - [facility] [address] [place] [address] Social History Tobacco Use Types Packs/Day Years [...] 7:47 AM EDT Kinsey Platt RN * [place] Suicide Severity Rating Scale (Screener/Recent Self-Report) Question [...] Raiza Mclain, RN Note: 06/19/23: Resides @ [address] [place] [address] ([employer]) Dr. Cool's cell [phone] if needed Previous inpatient detox facilities: Razo Unit at [facility] is his preferred detox Formerly homeless Engage in recovery supports General No Carmen Peralta, RN Note: Dr. Cool states pt was in a temporary fci run by [facility] in [place] for about 1 month Oct 2020 recently but he eloped from there. It is now closed. She requests that we add to his care plan to direct him to go directly to the fci clinic to see her upon ED if he arrives here on a Friday or , call her either way if he is in the ED [phone]. Also ask pt where he is sleeping currently so she can track him down. documented as of this encounter Visit Diagnoses Not on filedocumented in this encounter Additional Health Concerns Infection Onset Date Last Indicated Resolved Time CoV-Risk 04/26/2025 04/26/2025 05/07/2025 1:21 AM EDT documented as of this encounter Care Teams Datacap Developer Relationship Specialty Start Date End Date Kassy Cool MD [address] [place] [address] [email or web address] PCP - General Family Medicine 04/16/23 documented as of this encounter Additional Source Comments The information contained in this document represents components of the legal health record. It is not the complete legal health record.[facility]
--- OUTSIDE RECORDS SUMMARY | 2025-06-14 21:31 | XMS_ITS | Encounter Summary ---
Author Organization [facility] Address [address] [facility] [address] [place] [address] Phone Care Team Providers Care Fire Prevention Specialist Name Role Phone Kassy Cool MD Primary Care Provider + [phone] Encounter Details Date Type Department Care Team (Late st Contact Info) Description 05/06/2025 Procedure Pass [facility], [facility] - [facility] [address] [place] [address] Social History Tobacco Use Types Packs/Day Years [...] 8:17 AM EDT Ofelia Espinal RN * [place] Suicide Severity Rating Scale (Screener/Recent Self-Report) Question [...] Raiza Mclain, RN Note: 06/19/23: Resides @ [address] [place] [address] ([employer]) Dr. Cool's cell [phone] if needed Previous inpatient detox facilities: Razo Unit at [facility] is his preferred detox Formerly homeless Engage in recovery supports General No Carmen Peralta, BRICE Note: Dr. Cool states pt was in a temporary [facility] run by [facility] in [place] for about 1 month Oct 2020 recently but he eloped from there. It is now closed. She requests that we add to his care plan to direct him to go directly to the fci clinic to see her upon ED if he arrives here on a Friday or , call her either way if he is in the ED [phone]. Also ask pt where he is sleeping currently so she can track him down. documented as of this encounter Visit Diagnoses Not on filedocumented in this encounter Additional Health Concerns Infection Onset Date Last Indicated Resolved Time CoV-Risk 04/26/2025 04/26/2025 05/07/2025 1:21 AM EDT documented as of this encounter Care Teams Fire Prevention Specialist Relationship Specialty Start Date End Date Kassy Cool MD [address] [place] [address] PCP - General Family Medicine 04/16/23 documented as of this encounter Additional Source Comments The information contained in this document represents components of the legal health record. It is not the complete legal health record.[facility]
--- OUTSIDE RECORDS SUMMARY | 2025-06-14 21:31 | XMS_ITS | Encounter Summary ---
Author Organization [facility] Address [address] [place] [address] [place] [address] Phone Care Team Providers Care Director Of Speech Pathology Name Role Phone Kiya Valenzuela NP Primary Care Provider Hussein Vasquez MD Unavailable Kiya Valenzuela RESIDENT CARE SPEC Primary Care Provider Kassy Cool MD Primary Care Provider Pcp, Unknown Primary Care Provider Unavailabl e Kassy Cool MD Primary Care Provider Encounter Details Date Type Department Care Team (Late st Contact Info) Description 05/16/2020 Procedure Pass [facility], Ct Scan - [address] [address] Social History Tobacco Use Types Packs/Day Years [...] as of this encounter Care Teams Director Of Speech Pathology Relationship Specialty Start Date End Date Kiya Valenzuela NP [address] [place] [address] [email or web address] PCP - General Family Medicine 09/03/19 10/07/20 Kiya Valenzuela NP [address] [place] [address] [email or web address] PCP - General Family Medicine 10/08/20 04/30/21 Kassy Cool MD [address] [place] [address] [email or web address] PCP - General Family Medicine 05/01/21 01/26/22 Pcp, Unknown PCP - General 01/27/22 03/04/22 Kassy Cool MD 70 [place] [address] PCP - General Family Medicine 04/16/23 Hussein Vasquez MD [address] [facility] [address] [place] [address] [email or web address] Insurance Assigned Provider 05/04/20 01/06/21 documented as of this encounter Additional Source Comments The information contained in this document represents components of the legal health record. It is not the complete legal health record.[facility]
--- OUTSIDE RECORDS SUMMARY | 2025-06-14 21:31 | XMS_ITS | Encounter Summary ---
Author Organization [employer] Address [address] [facility] 7 [place] [address] Care Team Providers Care Drug Enforcement Administration Agent Name Role Phone DarrionJackie harper Unavailable Unavailable Kassy Cool MD Primary Care Provider [phone] Mel Erazo Unavailable Unavailable Constance Lozada Unavailable Encounter Details Date Type Department Care Team (Late st Contact Info) Description 08/27/2024 Orders Only [facility] [address] [place] [address] Kassy Cool MD [address] [place] [address] Social History Tobacco Use Types Packs/Day Years [...] on file documented as of this encounter Procedures Procedure Name Priority Date/Time Associated Diagnosis Comments BASIC METABOLIC PANEL Routine 08/22/2024 1:25 PM EST documented in this encounter Results * Basic Metabolic Panel (08/22/2024 1:25 PM EST) Blood Venous blood specimen / Unknown us Kassy Cool MD LAB BLOOD ORDERABLES Final Res ult documented in this encounter Visit Diagnoses Not on filedocumented in this encounter Care Teams Drug Enforcement Administration Agent Relationship Specialty Start Date End Date Kassy Cool MD [address] [place] [address] PCP - General Family Medicine 10/09/22 Jackie Maier Health Navigator Case Management 10/09/22 Mel Erazo Community Health Worker Case Management 10/30/22 Constance Lozada 02/24/25 04/29/25 documented as of this encounter
--- OUTSIDE RECORDS SUMMARY | 2025-06-14 21:31 | XMS_ITS | Encounter Summary ---
Author Organization [facility] Address [address] [place] [address] [place] [address] Phone Care Team Providers Care Bronzer Name Role Phone Kassy Cool MD Primary Care Provider + [phone] Pcp, Unknown Primary Care Provider Unavailabl e Kassy Cool MD Primary Care Provider + [phone] Encounter Details Date Type Department Care Team (Late st Contact Info) Description 07/15/2021 Procedure Pass [facility], Ct Scan - [address] [address] Social History Tobacco Use Types Packs/Day Years [...] Date of Assessment Author No Risk Indicated 07/15/2021 2:19 PM EDT Cindy Reyes RN * [place] Suicide Severity Rating Scale (Screener/Recent Self-Report) Question Answer Date of Assessment Author 1. Wish to be (Past 1 Month) No 021 2:19 PM EDT Cindy Reyes RN 2. Non-Specific Active Suici nacho Thoughts (Past 1 Month) No 07/15/2021 2:19 PM EDT Tong Reyes ace, RBICE 6. Suicidal Behavior (Lifetime) No 2:19 PM EDT Cindy Reyes RN documented as of this encounter Plan of Treatment Not on file documented as of this encounter Goals Goal Patient Goal Type Associated Problems Recent Progress Patient-Stated? Author Acute Care Plan Acute Care Plan No Raiza Mclain, RN Note: 06/19/23: Resides @ [address] [place] [address] ([employer]) Dr. Cool's cell [phone] if needed Previous inpatient detox facilities: R[facility] Unit at [facility] is his preferred detox Formerly homeless Engage in recovery supports General No Carmen Peralta, BRICE Note: Dr. Cool states pt was in a temporary halfway run by [facility] in [place] for about 1 month Oct 2020 recently but he eloped from there. It is now closed. She requests that we add to his care plan to direct him to go directly to the halfway clinic to see her upon ED if he arrives here on a Friday or , call her either way if he is in the ED [phone]. Also ask pt where he is sleeping [...] documented as of this encounter Care Teams Bronzer Relationship Specialty Start Date End Date Kassy Cool MD [address] [place] [address] [email or web address] PCP - General Family Medicine 05/01/21 01/26/22 Pcp, Unknown PCP - General 01/27/22 03/04/22 Kassy Cool MD [address] [place] [address] [email or web address] PCP - General Family Medicine 04/16/23 documented as of this encounter Additional Source Comments The information contained in this document represents components of the legal health record. It is not the complete legal health record.[facility]
--- OUTSIDE RECORDS SUMMARY | 2025-06-14 21:31 | XMS_ITS | Encounter Summary ---
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); Chronic bilateral low back pain with bilateral sciatica Social History Tobacco Use Types Packs/Day Years [...] as of this encounter Visit Diagnoses Diagnosis Chronic pain syndrome 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
--- OUTSIDE RECORDS SUMMARY | 2025-06-14 21:31 | XMS_ITS | Encounter Summary ---
Author Organization [employer] Address [address] [facility] [address] [place] [address] Care Team Providers Care Integrated Circuit Layout Designer Name Role Phone Darrion Jackie Unavailable Unavailable Kassy Cool MD Primary Care Provider [phone] Mel Erazo Unavailable Unavailable Consatnce Lozada Unavailable Encounter Details Date Type Department Care Team (Late st Contact Info) Description 12/08/[address] [facility] MEDICAL [address] [place] [address] Provider, MD Brandon Social History Tobacco Use Types Packs/Day Years [...] Procedure Name Priority Date/Time Associated Diagnosis Comments ETHANOL Routine 12/08/2024 2:45 PM EDT BASIC METABOLIC PANEL Routine 12/08/2024 2:45 PM EDT documented in this encounter Results * Basic Metabolic Panel (12/08/2024 2:45 PM EDT) Blood Venous blood specimen / Unknown Historical Provider LAB BLOOD ORDERABLES Fiorella l Result * Ethanol (12/08/2024 2:45 PM EDT) Historical Provider LAB BLOOD ORDERABLES Fiorella l Result documented in this encounter Visit Diagnoses Not on filedocumented in this encounter Care Teams Integrated Circuit Layout Designer Relationship Specialty Start Date End Date Kassy Cool MD [address] [place] [address] PCP - General Family Medicine 10/09/22 Jackie Maier Health Navigator Case Management 10/09/22 Mel Erazo Community Health Worker Case Management 10/30/22 Constance Lozada 02/24/25 04/29/25 documented as of this encounter
--- OUTSIDE RECORDS SUMMARY | 2025-06-14 21:31 | XMS_ITS | Encounter Summary ---
Author Organization [employer] Address [address] [facility] [address] [place] [address] Care Team Providers Care Handkerchief Maker Name Role Phone Jackie Maier Unavailable Unavailable Kassy Cool MD Primary Care Provider [phone] Mel Erazo Unavailable Unavailable Constance Lozada Unavailable Encounter Details Date Type Department Care Team (Late st Contact Info) Description 09/06/2024 Orders Only [facility] [address] [place] [address] Kassy Cool MD [address] [place] [address] Social History Tobacco Use Types Packs/Day Years [...] Procedure Name Priority Date/Time Associated Diagnosis Comments CT HEAD WO CONTRAST Routine 09/06/2024 3:42 PM EST documented in this encounter Results * CT HEAD WO CONTRAST (09/06/2024 3:42 PM EST) Anatomical Region Laterality Modality Computed Tomogra phy us Kassy Cool MD IMG CT PROCEDURES Final Result documented in this encounter Visit Diagnoses Not on filedocumented in this encounter Care Teams Handkerchief Maker Relationship Specialty Start Date End Date Kassy Cool MD [address] [place] [address] PCP - General Family Medicine 10/09/22 Jackie Maier Health Navigator Case Management 10/09/22 Mel Erazo Community Health Worker Case Management 10/30/22 Constance Lozada 02/24/25 04/29/25 documented as of this encounter
--- OUTSIDE RECORDS SUMMARY | 2025-06-14 21:31 | XMS_ITS | Encounter Summary ---
Author Organization [facility] Address [address] [place] [address] [place] [id number] Phone Care Team Providers Care Oil Spreader Operator Name Role Phone Kiya Valenzuela NP Primary Care Provider Hussein Vasquez MD Unavailable Kiya Valenzuela NP Primary Care Provider Kassy Cool MD Primary Care Provider Pcp, Unknown Primary Care Provider Unavailabl e Kassy Cool MD Primary Care Provider Encounter Details Date Type Department Care Team (Late st Contact Info) Description 06/11/2020 Procedure Pass [facility], Ct Scan - [address] [address] Social History Tobacco Use Types Packs/Day Years [...] documented as of this encounter Care Teams Oil Spreader Operator Relationship Specialty Start Date End Date Kiya Valenzuela NP [address] [place] [address] [email or web address] PCP - General Family Medicine 09/03/19 10/07/20 Kiya Valenzuela NP [address] [place] [address] [email or web address] PCP - General Family Medicine 10/08/20 04/30/21 Kassy Cool MD [address] [place] [address] [email or web address] PCP - General Family Medicine 05/01/21 01/26/22 Pcp, Unknown PCP - General 01/27/22 03/04/22 Kassy Cool MD [address] [place] [address] [email or web address] PCP - General Family Medicine 04/16/23 Hussein Vasquez MD [address] [facility] [address] [place] [address] [email or web address] Insurance Assigned Provider 05/04/20 01/06/21 documented as of this encounter Additional Source Comments The information contained in this document represents components of the legal health record. It is not the complete legal health record.[facility]
--- OUTSIDE RECORDS SUMMARY | 2025-06-14 21:31 | XMS_ITS | Clinical Summary ---
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 VACCINE (2024- season) 2025 10/04/2021, 06/06/2021, 11/09/2020 LIPID PANEL 12/12/2026 12/12/2021, 12/25/2017 Adult Td,Tdap Booster 05/30/2031 05/30/2021 , 06/02/2018, 01/14/2014, Additional history exists HEPATITIS C SCREENING Completed 05/20/2019, 018 HEPATITIS A VACCINES Aged Out No long er eligible based on patient's age to complete this topic HIB VACCINES Aged Out No longer eligi ble based on patient's age to complete this topic MENINGOCOCCAL VACCINES (ACWY) Aged Out No longer eligible based on patient's age to complete this topic MENINGOCOCCAL VACCINES (B) Aged Out N o longer eligible based on patient's age to complete this topic Goals Goal Patient Goal Type Associated Problems Recent Progress Patient-Stated? Author Acute Care Plan Acute Care Plan No Raiza Mclain, RN Note: 06/19/23: Resides @ [address] [place] [address] ([facility]) Dr. Cool's cell [phone] if needed Previous inpatient detox facilities: [facility] is his preferred detox Formerly homeless [facility] General No Carmen Peralta RN Note: Dr. Cool states pt was in a temporary nursing home run by [facility] in [place] for about 1 month Oct 2020 recently but he eloped from there. It is now closed. She requests that we add to his care plan to direct him to go directly to the nursing home clinic to see her upon ED if he arrives here on a Friday or , call her either way if he is in the ED [phone]. Also ask pt where he is sleeping currently so she can track him down. 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 Device Identifier Shelf Expiration Date Model / Serial / Lot Kit Filter Optionelite 6.5fr 30mm 70cm Femoral Or Jugular Access Sleepy Eye Stable Base Reten [place] Pattern Vena Cava - [id number] Implanted:Qty: 1 on 06/19/2023 by Vikash Tom MD at [facility] Filter N/A: Vena Cava [facility] [id number] 05/15/2026 [id number] / / [id number] Screw Bone 3.5x10mm Cortex Self Tapping Fully Threaded Hex Head Ss - [id number] Implanted:Qty: 1 on 12/19/2022 by Renato Ibanez MD at [facility] [place] Left: [employer]cran[employer] 204.810 / / Screw Bone 3.5x24mm Cortex Self Tapping Fully Threaded Hex Head Ss - [id number] Implanted:Qty: 1 on 12/19/2022 by Renato Ibanez MD at [facility] [place] Left: Olecran[employer] 204.824 / / Screw Bone 34x2.7mm Metaphyseal Lcp Ss Self Tapping T8 Stardrive Recess - [id number] Implanted:Qty: 1 on 12/19/2022 by Renato Ibanez MD at [facility] Left: [employer] 02.118.5 34 / / Screw Bone 14x2.7mm Ss Variable Angle Locking Self Tapping Full Thread T8 Stardrive Recess - [id number] Implanted:Qty: 2 on 12/19/2022 by Renato Ibanez MD at [facility] Left: [employer] 02.211.0 14 / / Screw Bone 24x2.7mm Ss Variable Angle Locking Self Tapping Full Thread T8 Stardrive Recess - [id number] Implanted:Qty: 2 on 12/19/2022 by Renato Ibanez MD at [facility] Left: [employer] 02.211.0 24 / / Olecranon Plate 2.7 3.5x73mm 2 Hole Bone Lcp Ss Proximalimal Variable Angle Left - [id number] Implanted:Qty: 1 on 12/19/2022 by Renato Ibanez MD at [facility] Left: [employer] 02.107.1 02 / / Procedures Procedure Name Priority Date/Time Associated Diagnosis Comments LEVETIRACETAM (KEPPRA) LEVEL STAT 06/02/2025 11:13 AM EDT POCT GLUCOSE Routine 06/02/2025 9:23 AM EDT POCT GLUCOSE Routine 05/06/2025 2:[address] CERVICAL SPINE (NEURO) WITHOUT CONTRAST Routine 05/06/2025 2:[address] HEAD WITHOUT CONTRAST Routine 05/06/2025 2:[address] CERVICAL SPINE WITHOUT CONTRAST Routine 04/30/2025 11:[address] HEAD WITHOUT CONTRAST Routine 04/30/2025 11:13 AM EDT ETHANOL, BLOOD STAT 04/30/2025 9:14 AM EDT LFTS (HEPATIC PANEL) STAT 04/30/2025 9:14 AM EDT BASIC METABOLIC PANEL STAT 04/30/2025 9:14 AM EDT CBC AND DIFFERENTIAL STAT 04/30/2025 9:14 AM EDT XR CHEST PORTABLE Routine 04/26/2025 5:1 8 AM EDT ETHANOL, BLOOD STAT 04/26/2025 2:54 AM EDT LIPASE STAT 04/26/2025 2:54 AM EDT LFTS (HEPATIC PANEL) STAT 04/26/2025 2:54 AM EDT LEVETIRACETAM (KEPPRA) LEVEL STAT 04/26/2025 2:54 AM EDT CBC AND DIFFERENTIAL STAT 04/26/2025 2:54 AM EDT BASIC METABOLIC PANEL STAT 04/26/2025 2:54 AM EDT COVID PANDEMIC RESPIRATORY VIRAL ORDER (PRO) STAT 04/26/2025 2:[address] CERVICAL SPINE WITHOUT CONTRAST Routine 04/11/2025 5:[address] HEAD WITHOUT CONTRAST Routine 04/11/2025 5:17 PM EDT ETHANOL, BLOOD STAT 04/07/2025 11:21 AM EDT MAGNESIUM STAT 04/07/2025 11:21 AM EDT LFTS (HEPATIC PANEL) STAT 04/07/2025 11:21 AM EDT BASIC METABOLIC PANEL STAT 04/07/2025 11:21 AM EDT CBC AND DIFFERENTIAL STAT 04/07/2025 11:21 AM EDT POCT GLUCOSE Routine 04/01/2025 6:18 PM EDT POCT GLUCOSE STAT 04/01/2025 6:18 PM EDT ETHANOL, BLOOD STAT 04/01/2025 6:18 PM EDT LAMOTRIGINE LEVEL STAT 04/01/2025 6:1 8 PM EDT LFTS (HEPATIC PANEL) STAT 04/01/2025 6:18 PM EDT BASIC METABOLIC PANEL STAT 04/01/2025 6:18 PM EDT CBC AND DIFFERENTIAL STAT 04/01/2025 6:18 PM EDT ECG 12-LEAD STAT 04/01/2025 5:[address] FACE WITHOUT CONTRAST Routine 04/01/2025 5:[address] CERVICAL SPINE WITHOUT CONTRAST Routine 04/01/2025 5:[address] HEAD WITHOUT CONTRAST Routine 04/01/2025 5:17 PM EDT POCT GLUCOSE Routine 03/28/2025 7:41 AM EDT HEPATITIS C ANTIBODY, QUALITATIVE Routine 05/20/2019 5:38 AM EDT from Last 3 Months or Most Recently Relevant to Health Maintenance Results * (ABNORMAL) Levetiracetam (Keppra) level (06/02/2025 11:13 AM EDT) Only the most recent of2 resultswithin the time period is included. Levetiracetam <2.0(L) 12.0 - 46.0 mcg/mL [facility] Comment:This test was develo ped and its performance characteristics determined by the [facility]. It has not been cleared or approved by the [place] Food and Drug Administration. This laboratory is certified under CLIA as qualified to perform high complexity clinical laboratory testing. Blood 06/02/2025 11:1 3 AM EDT 06/02/2025 11:24 AM EDT us Christie Palencia PA-C LAB BLOOD ORDERABLES Final Result [address] [address] * POCT Glucose (06/02/2025 9:23 AM EDT) Only the most recent of4 resultswithin the time period is included. Glucose, POCT 92 70 - 100 mg/dL [facility] 06/02/2025 9:23 AM EDT 06/02/2025 9:25 AM EDT us Unknown Unknown MD POINT OF CARE TEST ORDERABLES Final Result [facility] [address] [place] [address] * CT CERVICAL SPINE (NEURO) WITHOUT CONTRAST (05/06/2025 2:04 AM EDT) Anatomical Region Laterality Modality C-spine Computed Tomogra phy 05/06/2025 2:35 AM EDT Impressions 05/06/2025 2:43 AM EDT 1. No acute intracranial findings. 2. No acute fracture or traumatic malalignment of the cervical spine. Narrative 05/06/2025 2:[address] CERVICAL SPINE (NEURO) WITHOUT CONTRAST, CT HEAD WITHOUT CONTRAST Referring clinician's provided indication for this examination in [facility]: * Neck trauma, intoxicated or obtunded (Age >= 16y) TECHNIQUE: CTs of the head and cervical spine were performed without intravenous contrast using tailored dose modulation techniques. Images were reconstructed in the axial, coronal, and sagittal planes. COMPARISON: CT CERVICAL SPINE WITHOUT CONTRAST ; CT HEAD WITHOUT CONTRAST FINDINGS: HEAD: Brain Parenchyma: No midline shift, mass effect, parenchymal hemorrhage, or evidence of acute territorial infarct. Hypodensities in the periventricular white matter, likely a manifestation of chronic small vessel disease. Ventricular System and Extra-Axial Spaces: The ventricles and sulci are prominent. No extra-axial fluid collections. Basilar cisterns are patent. No hydrocephalus. Osseous and Extracranial Structures: No calvarial fracture or significant soft tissue hematoma. No significant paranasal sinus disease. No orbital abnormality. CERVICAL SPINE: Alignment and Vertebrae: No fracture or traumatic malalignment. The vertebral body heights are maintained. The vertebral body heights are maintained. Discs and Endplates: Multilevel degenerative changes of the spine. No significant spinal canal stenosis. Other Findings: Emphysema in the visualized lungs. Procedure Note Ewelina Hernanedz MBBS - 05/06/2025 CT CERVICAL SPINE (NEURO) WITHOUT CONTRAST, CT HEAD WITHOUT CONTRAST Referring clinician's provided indication for this examination in [facility]: *Neck trauma, intoxicated or obtunded (Age >= 16y) TECHNIQUE: CTs of the head and cervical spine were performed withoutintravenous contrast using tailored dose modulation techniques. Imageswere reconstructed in the axial, coronal, and sagittal planes. COMPARISON: CT CERVICAL SPINE WITHOUT CONTRAST ; CT HEADWITHOUT CONTRAST FINDINGS: HEAD: Brain Parenchyma: No midline shift, mass effect, parenchymal hemorrhage,or evidence of acute territorial infarct. Hypodensities in theperiventricular white matter, likely a manifestation of chronic smallvessel disease. Ventricular System and Extra-Axial Spaces: The ventricles and sulci areprominent. No extra-axial fluid collections. Basilar cisterns are patent.No hydrocephalus. Osseous and Extracranial Structures: No calvarial fracture or significantsoft tissue hematoma. No significant paranasal sinus disease. No orbitalabnormality. CERVICAL SPINE: Alignment and Vertebrae: No fracture or traumatic malalignment. Thevertebral body heights are maintained. The vertebral body heights aremaintained. Discs and Endplates: Multilevel degenerative changes of the spine. Nosignificant spinal canal stenosis. Other Findings: Emphysema in the visualized lungs. IMPRESSION: 1. No acute intracranial findings. 2. No acute fracture or traumatic malalignment of the cervical spine. Lexy Biggs PA-C IMG CT XSPECIALTY ORDERABLE S Final Result * CT HEAD WITHOUT CONTRAST (05/06/2025 2:04 AM EDT) Anatomical Region Laterality Modality Head Computed Tomogra phy 05/06/2025 2:35 AM EDT Impressions 05/06/2025 2:43 AM EDT 1. No acute intracranial findings. 2. No acute fracture or traumatic malalignment of the cervical spine. Narrative 05/06/2025 2:[address] CERVICAL SPINE (NEURO) WITHOUT CONTRAST, CT HEAD WITHOUT CONTRAST Referring clinician's provided indication for this examination in Epic: * Neck trauma, intoxicated or obtunded (Age >= 16y) TECHNIQUE: CTs of the head and cervical spine were performed without intravenous contrast using tailored dose modulation techniques. Images were reconstructed in the axial, coronal, and sagittal planes. COMPARISON: CT CERVICAL SPINE WITHOUT CONTRAST ; CT HEAD WITHOUT CONTRAST FINDINGS: HEAD: Brain Parenchyma: No midline shift, mass effect, parenchymal hemorrhage, or evidence of acute territorial infarct. Hypodensities in the periventricular white matter, likely a manifestation of chronic small vessel disease. Ventricular System and Extra-Axial Spaces: The ventricles and sulci are prominent. No extra-axial fluid collections. Basilar cisterns are patent. No hydrocephalus. Osseous and Extracranial Structures: No calvarial fracture or significant soft tissue hematoma. No significant paranasal sinus disease. No orbital abnormality. CERVICAL SPINE: Alignment and Vertebrae: No fracture or traumatic malalignment. The vertebral body heights are maintained. The vertebral body heights are maintained. Discs and Endplates: Multilevel degenerative changes of the spine. No significant spinal canal stenosis. Other Findings: Emphysema in the visualized lungs. Procedure Note Ewelina Hernandez MBBS - 05/06/2025 CT CERVICAL SPINE (NEURO) WITHOUT CONTRAST, CT HEAD WITHOUT CONTRAST Referring clinician's provided indication for this examination in Epic: *Neck trauma, intoxicated or obtunded (Age >= 16y) TECHNIQUE: CTs of the head and cervical spine were performed withoutintravenous contrast using tailored dose modulation techniques. Imageswere reconstructed in the axial, coronal, and sagittal planes. COMPARISON: CT CERVICAL SPINE WITHOUT CONTRAST ; CT HEADWITHOUT CONTRAST FINDINGS: HEAD: Brain Parenchyma: No midline shift, mass effect, parenchymal hemorrhage,or evidence of acute territorial infarct. Hypodensities in theperiventricular white matter, likely a manifestation of chronic smallvessel disease. Ventricular System and Extra-Axial Spaces: The ventricles and sulci areprominent. No extra-axial fluid collections. Basilar cisterns are patent.No hydrocephalus. Osseous and Extracranial Structures: No calvarial fracture or significantsoft tissue hematoma. No significant paranasal sinus disease. No orbitalabnormality. CERVICAL SPINE: Alignment and Vertebrae: No fracture or traumatic malalignment. Thevertebral body heights are maintained. The vertebral body heights aremaintained. Discs and Endplates: Multilevel degenerative changes of the spine. Nosignificant spinal canal stenosis. Other Findings: Emphysema in the visualized lungs. IMPRESSION: 1. No acute intracranial findings. 2. No acute fracture or traumatic malalignment of the cervical spine. us Lexy Biggs PA-C IMG CT HEAD/NECK Final Resu lt * CT CERVICAL SPINE WITHOUT CONTRAST (04/30/2025 11:13 AM EDT) Anatomical Region Laterality Modality C-spine Computed Tomogra phy 04/30/2025 12:0 1 PM EDT Impressions 04/30/2025 12:40 PM EDT 1. No acute intracranial finding. 2. No acute fracture or traumatic malalignment of the cervical spine. ATTESTATION: William Mari as teaching physician, have reviewed the images for this case and if necessary edited the report originally created by Joelle Wooten. Narrative 04/30/2025 12:[address] CERVICAL SPINE WITHOUT CONTRAST, CT HEAD WITHOUT CONTRAST Referring clinician's provided indication for this examination in [facility]: * Neck trauma, intoxicated or obtunded (Age >= 16y) TECHNIQUE: CTs of the head and cervical spine were performed without intravenous contrast using tailored dose modulation techniques. Images were reconstructed in the axial, coronal, and sagittal planes. COMPARISON: None FINDINGS: HEAD: Brain Parenchyma: No midline shift, mass effect, parenchymal hemorrhage, or evidence of acute territorial infarct. Hypodensities in the periventricular white matter, likely a manifestation of chronic small vessel disease. Ventricular System and Extra-Axial Spaces: No extra-axial fluid collections. Basal cisterns are patent. No hydrocephalus. Osseous and Extracranial Structures: No calvarial fracture or significant soft tissue hematoma. No significant paranasal sinus disease. No acute orbital abnormality. CERVICAL SPINE: Alignment and Vertebrae: No acute fracture or traumatic malalignment. C1 posterior arch fusion defect, not evident. Vertebral bodies and posterior elements are intact. Discs and Endplates: Multilevel degenerative changes, most predominantly C3-C4 vertebral level with reduced disc space, endplate sclerosis and vacuum phenomenon. Other Findings: No prevertebral soft tissue swelling. Emphysema. Subacute to chronic appearing healing fracture of the right medial clavicle. Procedure Note William Manzo MBBS - 04/30/2025 CT CERVICAL SPINE WITHOUT CONTRAST, CT HEAD WITHOUT CONTRAST Referring clinician's provided indication for this examination in [facility]: *Neck trauma, intoxicated or obtunded (Age >= 16y) TECHNIQUE: CTs of the head and cervical spine were performed withoutintravenous contrast using tailored dose modulation techniques. Imageswere reconstructed in the axial, coronal, and sagittal planes. COMPARISON: None FINDINGS: HEAD: Brain Parenchyma: No midline shift, mass effect, parenchymal hemorrhage,or evidence of acute territorial infarct. Hypodensities in theperiventricular white matter, likely a manifestation of chronic smallvessel disease. Ventricular System and Extra-Axial Spaces: No extra-axial fluidcollections. Basal cisterns are patent. No hydrocephalus. Osseous and Extracranial Structures: No calvarial fracture or significantsoft tissue hematoma. No significant paranasal sinus disease. No acuteorbital abnormality. CERVICAL SPINE: Alignment and Vertebrae: No acute fracture or traumatic malalignment. [id number] arch fusion defect, not evident. Vertebral bodies and posteriorelements are intact. Discs and Endplates: Multilevel degenerative changes, most predominantlyC3-C4 vertebral level with reduced disc space, endplate sclerosis andvacuum phenomenon. Other Findings: No prevertebral soft tissue swelling. Emphysema. Subacuteto chronic appearing healing fracture of the right medial clavicle. IMPRESSION: 1. No acute intracranial finding. 2. No acute fracture or traumatic malalignment of the cervical spine. ATTESTATION: William Mari as teaching physician, have reviewed theimages for this case and if necessary edited the report originally createdby Joelle Wooten. Rica Gomez PA-C IMOllie CT XSPECIALTY ORDER JAYE Final Result * CT HEAD WITHOUT CONTRAST (04/30/2025 11:13 AM EDT) Anatomical Region Laterality Modality Head Computed Tomogra phy 04/30/2025 12:0 1 PM EDT Impressions 04/30/2025 12:40 PM EDT 1. No acute intracranial finding. 2. No acute fracture or traumatic malalignment of the cervical spine. ATTESTATION: William Mari as teaching physician, have reviewed the images for this case and if necessary edited the report originally created by Joelle Wooten. Narrative 04/30/2025 12:[address] CERVICAL SPINE WITHOUT CONTRAST, CT HEAD WITHOUT CONTRAST Referring clinician's provided indication for this examination in [facility]: * Neck trauma, intoxicated or obtunded (Age >= 16y) TECHNIQUE: CTs of the head and cervical spine were performed without intravenous contrast using tailored dose modulation techniques. Images were reconstructed in the axial, coronal, and sagittal planes. COMPARISON: None FINDINGS: HEAD: Brain Parenchyma: No midline shift, mass effect, parenchymal hemorrhage, or evidence of acute territorial infarct. Hypodensities in the periventricular white matter, likely a manifestation of chronic small vessel disease. Ventricular System and Extra-Axial Spaces: No extra-axial fluid collections. Basal cisterns are patent. No hydrocephalus. Osseous and Extracranial Structures: No calvarial fracture or significant soft tissue hematoma. No significant paranasal sinus disease. No acute orbital abnormality. CERVICAL SPINE: Alignment and Vertebrae: No acute fracture or traumatic malalignment. C1 posterior arch fusion defect, not evident. Vertebral bodies and posterior elements are intact. Discs and Endplates: Multilevel degenerative changes, most predominantly C3-C4 vertebral level with reduced disc space, endplate sclerosis and vacuum phenomenon. Other Findings: No prevertebral soft tissue swelling. Emphysema. Subacute to chronic appearing healing fracture of the right medial clavicle. Procedure Note William Manzo MBBS - 04/30/2025 CT CERVICAL SPINE WITHOUT CONTRAST, CT HEAD WITHOUT CONTRAST Referring clinician's provided indication for this examination in [facility]: *Neck trauma, intoxicated or obtunded (Age >= 16y) TECHNIQUE: CTs of the head and cervical spine were performed withoutintravenous contrast using tailored dose modulation techniques. Imageswere reconstructed in the axial, coronal, and sagittal planes. COMPARISON: None FINDINGS: HEAD: Brain Parenchyma: No midline shift, mass effect, parenchymal hemorrhage,or evidence of acute territorial infarct. Hypodensities in theperiventricular white matter, likely a manifestation of chronic smallvessel disease. Ventricular System and Extra-Axial Spaces: No extra-axial fluidcollections. Basal cisterns are patent. No hydrocephalus. Osseous and Extracranial Structures: No calvarial fracture or significantsoft tissue hematoma. No significant paranasal sinus disease. No acuteorbital abnormality. CERVICAL SPINE: Alignment and Vertebrae: No acute fracture or traumatic malalignment. [id number] arch fusion defect, not evident. Vertebral bodies and posteriorelements are intact. Discs and Endplates: Multilevel degenerative changes, most predominantlyC3-C4 vertebral level with reduced disc space, endplate sclerosis andvacuum phenomenon. Other Findings: No prevertebral soft tissue swelling. Emphysema. Subacuteto chronic appearing healing fracture of the right medial clavicle. IMPRESSION: 1. No acute intracranial finding. 2. No acute fracture or traumatic malalignment of the cervical spine. ATTESTATION: I, William Manzo as teaching physician, have reviewed theimages for this case and if necessary edited the report originally createdby Joelle Wooten. Rica Gomez PA-C IMG CT HEAD/NECK Final Result * (ABNORMAL) Ethanol, blood (04/30/2025 9:14 AM EDT) Only the most recent of4 resultswithin the time period is included. ETHANOL 196(H) <10 mg/dL [facility] Blood 04/30/2025 9:14 AM EDT 04/30/2025 9:29 AM EDT Rica Gomez PA-C LAB BLOOD ORDERABLES Fi nal Result [address] [id number] * (ABNORMAL) LFTs (hepatic panel) (04/30/2025 9:14 AM EDT) Only the most recent of4 resultswithin the time period is included. ALKALINE PHOSPHATASE 78 39 - 117 U/L [facility] TOTAL BILIRUBIN <0.2 0.0 - 1.2 mg/dL [facility] DIRECT BILIRUBIN <0.1 0.0 - 0.2 mg/dL [facility] Bilirubin (Indirect) NOT CALCULATED 0 - 1.5 mg/dL [facility] AST 26 0 - 37 U/L [facility] ALT 12 0 - 40 U/L [facility] TOTAL PROTEIN 6.7 6.5 - 8.0 g/dL [facility] ALBUMIN 3.8(L) 3.9 - 4.8 g/dL [facility] GLOBULIN 2.9 1 - 4.8 g/dL [facility] A/G Ratio 1.31 1.00 - 4.80 RATIO [facility] Blood 04/30/2025 9:14 AM EDT 04/30/2025 9:29 AM EDT us Rica Gomez PA-C LAB BLOOD ORDERABLES Fi nal Result [address] [address] * (ABNORMAL) CBC and differential (04/30/2025 9:14 AM EDT) Only the most recent of4 resultswithin the time period is included. WBC 6.17 4.00 - 11.00 K/uL [facility] RBC 4.36(L) 4.50 - 5.90 M/uL [facility] HGB 13.9 13.5 - 17.5 g/dL [facility] HCT 42.6 41.0 - 53.0 % [facility] PLT 133(L) 150 - 450 K/uL [facility] MCV 97.7 80.0 - 100.0 fL [facility] MCH 31.9(H) 27.0 - 31.0 pg [facility] MCHC 32.6 32.0 - 36.0 g/dL [facility] RDW 15.0(H) 11.5 - 14.5 % [facility] MPV 9.8 8.4 - 12.0 fL [facility] NRBC 0.00 0.00 /100 WBCs [facility] ABSOLUTE NRBC 0.00 0.00 K/uL [facility] DIFF METHOD Auto [facility] NEUTS 50.9 48.0 - 76.0 % [facility] LYMPHS 35.7 18.0 - 41.0 % [facility] MONOS 9.6 4.0 - 11.0 % [facility] EOS 2.9 0.0 - 5.0 % [facility] BASOS 0.6 0.0 - 1.5 % [facility] Granulocytes, immature (%) 0.3 0.0 - 0.9 % [facility] ABSOLUTE NEUTS 3.14 1.92 - 7.60 K/uL [facility] ABSOLUTE LYMPHS 2.20 0.72 - 4.10 K/uL [facility] ABSOLUTE MONOS 0.59 0.16 - 1.10 K/uL [facility] ABSOLUTE EOS 0.18 0.00 - 0.50 K/uL [facility] ABSOLUTE BASOS 0.04 0.00 - 0.15 K/uL [facility] Granulocytes, immature 0.02 0.00 - 0.09 K/uL [facility] Blood 04/30/2025 9:14 AM EDT 04/30/2025 9:29 AM EDT Rica Gomez PA-C LAB BLOOD ORDERABLES nal Result [facility] [address] [place], [place] [id number] * Basic metabolic panel (04/30/2025 9:14 AM EDT) Only the most recent of4 resultswithin the time period is included. SODIUM 139 133 - 146 mmol/L [facility] CHLORIDE 101 96 - 108 mmol/L [facility] POTASSIUM 3.7 3.3 - 5.1 mmol/L [facility] CO2 23 21 - 35 mmol/L [facility] BUN 12 6 - 19 mg/dL [facility] CREATININE 0.70 0.5 - 1.5 mg/dL [facility] GLUCOSE 86 70 - 99 mg/dL [facility] CALCIUM 9.2 8.4 - 10.3 mg/dL [facility] EGFR 105 >59 mL/min/1.7 3m2 [facility] Comment:Estimated glomerular filtration rate calculated using the CKD-EPI refit equation. ANION GAP 19 10 - 20 mmol/L [facility] Blood 04/30/2025 9:14 AM EDT 04/30/2025 9:29 AM EDT us Rica Gomez PA-C LAB BLOOD ORDERABLES Fi nal Result [address] [address] * XR Chest Portable (04/26/2025 5:18 AM EDT) Anatomical Region Laterality Modality Chest Computed Radiogr aphy 04/26/2025 7:19 AM EDT Impressions 04/26/2025 7:20 AM EDT Bibasilar atelectasis. Narrative 04/26/2025 7:20 AM EDT XR CHEST PORTABLE Referring clinician's provided indication for this examination in [facility]: Cough; Dyspnea (Shortness of Breath) COMPARISON: August 22, 2024 FINDINGS: Devices/Tubes/Lines: None. Lungs: There are low bilateral lung volumes with bronchovascular crowding and bibasilar atelectasis. Pleura: No pleural effusion or pneumothorax. Heart/Mediastinum: The size of the cardiac silhouette is within normal limits. Bones/Soft Tissues: No significant abnormality. Procedure Note Eden Pizarro MD - 04/26/2025 XR CHEST PORTABLE Referring clinician's provided indication for this examination in [facility]:Cough; Dyspnea (Shortness of Breath) COMPARISON: August 22, 2024 FINDINGS: Devices/Tubes/Lines: None. Lungs: There are low bilateral lung volumes with bronchovascular crowdingand bibasilar atelectasis. Pleura: No pleural effusion or pneumothorax. Heart/Mediastinum: The size of the cardiac silhouette is within normallimits. Bones/Soft Tissues: No significant abnormality. IMPRESSION: Bibasilar atelectasis. us Tulio Menchaca PA-C IMG XR CHEST Final Result * (ABNORMAL) Lipase (04/26/2025 2:54 AM EDT) LIPASE 9(L) 16 - 63 U/L [facility] Blood 04/26/2025 2:54 AM EDT 04/26/2025 3:14 AM EDT Tulio ANGELO-Praveen LAB BLOOD ORDERABLES Final R esult Performing Organization Address [facility] de Phone Number [address] [address] * COVID Pandemic Respiratory Viral Order (PRO) (04/26/2025 2:45 AM EDT) Test Ordered Rapid COVID has been ordered [facility] Specimen Source/Description FLUID, NASAL [facility] SARS-CoV 2 (COVID-19) PCR Not Detected Not Detected [facility] Comment: SARS-CoV-2 not detected Negative results do not preclude SARS-CoV-2 infection and should not be used as the sole basis for patient management decisions. Negative results must be combined with clinical observations, patient history, and epidemiological information. Other (Nasopharyngeal swab) 04/26/2025 2:45 AM EDT 04/26/2025 2:56 AM EDT Joan Rosa MD BODY FLUIDS AND STOOLS ORDER JAYE Final Result Performing Organization Address [facility] de Phone Number [address] [address] * CT CERVICAL SPINE WITHOUT CONTRAST (04/11/2025 5:17 PM EDT) Anatomical Region Laterality Modality C-spine Computed Tomogra phy 04/11/2025 6:32 PM EDT Impressions 04/11/2025 7:15 PM EDT 1. No acute intracranial findings. 2. No acute fracture or traumatic malalignment of the cervical spine. ATTESTATION: I, Eden Pizarro as teaching physician, have reviewed the images for this case and if necessary edited the report originally created by Price Ibrahim. Narrative 04/11/2025 7:[address] HEAD WITHOUT CONTRAST, CT CERVICAL SPINE WITHOUT CONTRAST Referring clinician's provided indication for this examination in [facility]: * Head trauma, abnormal mental status (Age 19-64y) Review of the Electronic Medical Record reveals an additional history of: Witnessed fall face first onto the pavement. PMH of alcohol abuse, htn, and seizure disorder. TECHNIQUE: CTs of the head and cervical spine were performed without intravenous contrast using tailored dose modulation techniques. Images were reconstructed in the axial, coronal, and sagittal planes. COMPARISON: CT HEAD WITHOUT CONTRAST FINDINGS: HEAD: Brain Parenchyma: No midline shift, mass effect, parenchymal hemorrhage, or evidence of acute territorial infarct. Hypodensities in the periventricular white matter, likely a manifestation of chronic small vessel disease. Ventricular System and Extra-Axial Spaces: The ventricles and sulci are prominent. No extra-axial fluid collections. Basilar cisterns are patent. No hydrocephalus. Osseous and Extracranial Structures: No calvarial fracture or significant soft tissue hematoma. No significant paranasal sinus disease. No orbital abnormality. CERVICAL SPINE: Alignment and Vertebrae: Straightening of the normal cervical lordosis. Vertebral bodies and posterior elements are intact. Preserved C1-C2 relationship with degenerative changes. Discs and Endplates: Multilevel degenerative changes. Other Findings: Emphysematous changes in the bilateral lung apices. Vascular calcifications. Procedure Note Eden Pizarro MD - 04/11/2025 CT HEAD WITHOUT CONTRAST, CT CERVICAL SPINE WITHOUT CONTRAST Referring clinician's provided indication for this examination in [facility]: *Head trauma, abnormal mental status (Age 19-64y) Review of the Electronic Medical Record reveals an additional history of:Witnessed fall face first onto the pavement. PMH of alcohol abuse, htn,and seizure disorder. TECHNIQUE: CTs of the head and cervical spine were performed withoutintravenous contrast using tailored dose modulation techniques. Imageswere reconstructed in the axial, coronal, and sagittal planes. COMPARISON: CT HEAD WITHOUT CONTRAST FINDINGS: HEAD: Brain Parenchyma: No midline shift, mass effect, parenchymal hemorrhage,or evidence of acute territorial infarct. Hypodensities in theperiventricular white matter, likely a manifestation of chronic smallvessel disease. Ventricular System and Extra-Axial Spaces: The ventricles and sulci areprominent. No extra-axial fluid collections. Basilar cisterns are patent.No hydrocephalus. Osseous and Extracranial Structures: No calvarial fracture or significantsoft tissue hematoma. No significant paranasal sinus disease. No orbitalabnormality. CERVICAL SPINE: Alignment and Vertebrae: Straightening of the normal cervical lordosis.Vertebral bodies and posterior elements are intact. Preserved C1-[id number] with degenerative changes. Discs and Endplates: Multilevel degenerative changes. Other Findings: Emphysematous changes in the bilateral lung apices.Vascular calcifications. IMPRESSION: 1. No acute intracranial findings. 2. No acute fracture or traumatic malalignment of the cervical spine. ATTESTATION: I, Eden Pizarro as teaching physician, have reviewed theimages for this case and if necessary edited the report originally createdby Price Ibrahim. Pippa Wren PA-C IMG CT XSPECIALT Y ORDERABLES Final Result * CT HEAD WITHOUT CONTRAST (04/11/2025 5:17 PM EDT) Anatomical Region Laterality Modality Head Computed Tomogra phy 04/11/2025 6:32 PM EDT Impressions 04/11/2025 7:15 PM EDT 1. No acute intracranial findings. 2. No acute fracture or traumatic malalignment of the cervical spine. ATTESTATION: IEden as teaching physician, have reviewed the images for this case and if necessary edited the report originally created by Price Ibrahim. Narrative 04/11/2025 7:[address] HEAD WITHOUT CONTRAST, CT CERVICAL SPINE WITHOUT CONTRAST Referring clinician's provided indication for this examination in [employer]: * Head trauma, abnormal mental status (Age 19-64y) Review of the Electronic Medical Record reveals an additional history of: Witnessed fall face first onto the pavement. PMH of alcohol abuse, htn, and seizure disorder. TECHNIQUE: CTs of the head and cervical spine were performed without intravenous contrast using tailored dose modulation techniques. Images were reconstructed in the axial, coronal, and sagittal planes. COMPARISON: CT HEAD WITHOUT CONTRAST FINDINGS: HEAD: Brain Parenchyma: No midline shift, mass effect, parenchymal hemorrhage, or evidence of acute territorial infarct. Hypodensities in the periventricular white matter, likely a manifestation of chronic small vessel disease. Ventricular System and Extra-Axial Spaces: The ventricles and sulci are prominent. No extra-axial fluid collections. Basilar cisterns are patent. No hydrocephalus. Osseous and Extracranial Structures: No calvarial fracture or significant soft tissue hematoma. No significant paranasal sinus disease. No orbital abnormality. CERVICAL SPINE: Alignment and Vertebrae: Straightening of the normal cervical lordosis. Vertebral bodies and posterior elements are intact. Preserved C1-C2 relationship with degenerative changes. Discs and Endplates: Multilevel degenerative changes. Other Findings: Emphysematous changes in the bilateral lung apices. Vascular calcifications. Procedure Note Eedn Piazrro MD - 04/11/2025 CT HEAD WITHOUT CONTRAST, CT CERVICAL SPINE WITHOUT CONTRAST Referring clinician's provided indication for this examination in [facility]: *Head trauma, abnormal mental status (Age 19-64y) Review of the Electronic Medical Record reveals an additional history of:Witnessed fall face first onto the pavement. PMH of alcohol abuse, htn,and seizure disorder. TECHNIQUE: CTs of the head and cervical spine were performed withoutintravenous contrast using tailored dose modulation techniques. Imageswere reconstructed in the axial, coronal, and sagittal planes. COMPARISON: CT HEAD WITHOUT CONTRAST FINDINGS: HEAD: Brain Parenchyma: No midline shift, mass effect, parenchymal hemorrhage,or evidence of acute territorial infarct. Hypodensities in theperiventricular white matter, likely a manifestation of chronic smallvessel disease. Ventricular System and Extra-Axial Spaces: The ventricles and sulci areprominent. No extra-axial fluid collections. Basilar cisterns are patent.No hydrocephalus. Osseous and Extracranial Structures: No calvarial fracture or significantsoft tissue hematoma. No significant paranasal sinus disease. No orbitalabnormality. CERVICAL SPINE: Alignment and Vertebrae: Straightening of the normal cervical lordosis.Vertebral bodies and posterior elements are intact. Preserved C1-V2dgnqbyznfhml with degenerative changes. Discs and Endplates: Multilevel degenerative changes. Other Findings: Emphysematous changes in the bilateral lung apices.Vascular calcifications. IMPRESSION: 1. No acute intracranial findings. 2. No acute fracture or traumatic malalignment of the cervical spine. ATTESTATION: I, Eden Pizarro as teaching physician, have reviewed theimages for this case and if necessary edited the report originally createdby Price Ibrahim. us Pippa Wren PA-C IMG CT HEAD/NECK Final Result * (ABNORMAL) Magnesium (04/07/2025 11:21 AM EDT) MAGNESIUM 1.5(L) 1.6 - 2.6 mg/dL [facility] Blood 04/07/2025 11:2 1 AM EDT 04/07/2025 11:25 AM EDT us Dary Matt DO LAB BLOOD ORDERABLES Final Resul t Performing Organization Address City/[facility]/ZIP Co de Phone Number [facility] [address] [place] [address] * (ABNORMAL) Lamotrigine level (04/01/2025 6:18 PM EDT) LAMOTRIGINE <2.0(L) 4.0 - 18.0 mcg/mL [facility] Comment:This test was develo ped and its performance characteristics determined by the [facility]. It has not been cleared or approved by the [place] Food and Drug Administration. This laboratory is certified under CLIA as qualified to perform high complexity clinical laboratory testing. Blood 04/01/2025 6:18 PM EDT 04/01/2025 6:21 PM EDT us Keven Agrawal MD LAB BLOOD ORDERABLES Final Result [address] [address] * (ABNORMAL) POCT Glucose (04/01/2025 6:18 PM EDT) Glucose 110(A) 70 - 100 mg/dL 04/01/2025 6:18 PM EDT us Keven Agrawal MD POINT OF CARE TEST ORDERABL ES Final Result * ECG 12-LEAD (04/01/2025 5:55 PM EDT) Ventricular Rate EKG/MIN 88 BPM [facility] Atrial Rate 88 BPM [facility] SD Interval 110 ms [facility] QRS Duration 84 ms [facility] QT Interval 366 ms [facility] QTC Interval 442 ms [facility] P [place] 69 degrees [facility] R Wave [place] 66 degrees [facility] T Wave [place] 58 degrees [facility] 04/01/2025 5:55 PM EDT 04/02/2025 1:37 PM EDT Narrative [facility] - 04/02/2025 1:37 PM EDT Sinus rhythm with short SD Otherwise normal ECG When compared with ECG of 18-May-2024 12:57, SD interval has decreased Confirmed by Willam ROMERO ([id number]) on 04/02/2025 1:37:46 PM us Keven Agrawal MD ECG ORDERABLES Final Resul t [facility] * CT FACE WITHOUT CONTRAST (04/01/2025 5:17 PM EDT) Anatomical Region Laterality Modality Face Computed Tomogra phy 04/01/2025 5:39 PM EDT Impressions 04/01/2025 6:21 PM EDT 1. No acute intracranial finding. 2. No acute maxillofacial fracture. 3. No acute fracture or traumatic malalignment of the cervical spine. 4. Degenerative changes of the cervical spine with moderate central canal narrowing at C3 C5. 5. Multiple dental cavities and periapical lucencies. ATTESTATION: I, Amanda Aldridge as teaching physician, have reviewed the images for this case and if necessary edited the report originally created by Joelle Wooten. Narrative 04/01/2025 6:[address] HEAD WITHOUT CONTRAST, CT FACE WITHOUT CONTRAST, CT CERVICAL SPINE WITHOUT CONTRAST Referring clinician's provided indication for this examination in [facility]: Head trauma, abnormal mental status. TECHNIQUE: CTs of the head, face, and cervical spine were performed without intravenous contrast using tailored dose modulation techniques. Images were reconstructed in the axial, coronal, and sagittal planes. COMPARISON: CT HEAD WITHOUT CONTRAST ; CT CERVICAL SPINE WITHOUT CONTRAST FINDINGS: HEAD: Brain Parenchyma: No midline shift, mass effect, parenchymal hemorrhage, or evidence of acute territorial infarct. Hypodensities in the periventricular white matter, likely a manifestation of chronic small vessel disease. Ventricular System and Extra-Axial Spaces: Sulci and ventricles are prominent. Similar ventriculomegaly. No extra-axial fluid collections. Basal cisterns are patent. Osseous and Extracranial Structures: No calvarial fracture or significant soft tissue hematoma. FACE: Bones: No acute fracture. Multiple dental cavities and periapical lucencies. Orbits: No acute orbital injury. Paranasal Sinuses and Mastoids: Clear. Soft Tissues: No significant soft tissue hematoma. CERVICAL SPINE: Alignment and Vertebrae: No acute fracture or traumatic malalignment. Reversal of the lordosis due to degenerative changes. Vertebral bodies and posterior elements are intact. Preserved C1-C2 relationship with degenerative changes. Discs and Endplates: Disc space narrowing with endplate changes, anterior osteophytes and posterior disc osteophyte complexes at C3 C7 causing moderate central canal narrowing at C3-C5. Craniocervical Junction: Degenerative disease of C1-C2 is present without spinal canal narrowing. Other Findings: No prevertebral soft tissue swelling. Mild atherosclerotic calcifications at the bilateral carotid bifurcations. Emphysematous changes in the lung apices. Procedure Note Amanda Aldridge MD - 04/01/2025 CT HEAD WITHOUT CONTRAST, CT FACE WITHOUT CONTRAST, CT CERVICAL SPINEWITHOUT CONTRAST Referring clinician's provided indication for this examination in [facility]:Head trauma, abnormal mental status. TECHNIQUE: CTs of the head, face, and cervical spine were performedwithout intravenous contrast using tailored dose modulation techniques.Images were reconstructed in the axial, coronal, and sagittal planes. COMPARISON: CT HEAD WITHOUT CONTRAST ; CT CERVICAL SPINEWITHOUT CONTRAST FINDINGS: HEAD: Brain Parenchyma: No midline shift, mass effect, parenchymal hemorrhage,or evidence of acute territorial infarct. Hypodensities in theperiventricular white matter, likely a manifestation of chronic smallvessel disease. Ventricular System and Extra-Axial Spaces: Sulci and ventricles areprominent. Similar ventriculomegaly. No extra-axial fluid collections.Basal cisterns are patent. Osseous and Extracranial Structures: No calvarial fracture or significantsoft tissue hematoma. FACE: Bones: No acute fracture. Multiple dental cavities and periapicallucencies. Orbits: No acute orbital injury. Paranasal Sinuses and Mastoids: Clear. Soft Tissues: No significant soft tissue hematoma. CERVICAL SPINE: Alignment and Vertebrae: No acute fracture or traumatic malalignment.Reversal of the lordosis due to degenerative changes. Vertebral bodies andposterior elements are intact. Preserved C1-C2 relationship withdegenerative changes. Discs and Endplates: Disc space narrowing with endplate changes, anteriorosteophytes and posterior disc osteophyte complexes at C3 C7 causingmoderate central canal narrowing at C3-C5. Craniocervical Junction: Degenerative disease of C1-C2 is present withoutspinal canal narrowing. Other Findings: No prevertebral soft tissue swelling. Mild atheroscleroticcalcifications at the bilateral carotid bifurcations. Emphysematouschanges in the lung apices. IMPRESSION: 1. No acute intracranial finding. 2. No acute maxillofacial fracture. 3. No acute fracture or traumatic malalignment of the cervical spine. 4. Degenerative changes of the cervical spine with moderate central canalnarrowing at C3 C5. 5. Multiple dental cavities and periapical lucencies. ATTESTATION: I, Amanda Aldridge as teaching physician, have reviewed theimages for this case and if necessary edited the report originally createdby Joelle Wooten. us Sidney Douglas MD IM CT HEAD/NECK Final Result * CT CERVICAL SPINE WITHOUT CONTRAST (04/01/2025 5:17 PM EDT) Anatomical Region Laterality Modality C-spine Computed Tomogra phy 04/01/2025 5:39 PM EDT Impressions 04/01/2025 6:21 PM EDT 1. No acute intracranial finding. 2. No acute maxillofacial fracture. 3. No acute fracture or traumatic malalignment of the cervical spine. 4. Degenerative changes of the cervical spine with moderate central canal narrowing at C3 C5. 5. Multiple dental cavities and periapical lucencies. ATTESTATION: Jacey, Amanda Aldridge as teaching physician, have reviewed the images for this case and if necessary edited the report originally created by Joelle Wooten. Narrative 04/01/2025 6:[address] HEAD WITHOUT CONTRAST, CT FACE WITHOUT CONTRAST, CT CERVICAL SPINE WITHOUT CONTRAST Referring clinician's provided indication for this examination in Epic: Head trauma, abnormal mental status. TECHNIQUE: CTs of the head, face, and cervical spine were performed without intravenous contrast using tailored dose modulation techniques. Images were reconstructed in the axial, coronal, and sagittal planes. COMPARISON: CT HEAD WITHOUT CONTRAST ; CT CERVICAL SPINE WITHOUT CONTRAST FINDINGS: HEAD: Brain Parenchyma: No midline shift, mass effect, parenchymal hemorrhage, or evidence of acute territorial infarct. Hypodensities in the periventricular white matter, likely a manifestation of chronic small vessel disease. Ventricular System and Extra-Axial Spaces: Sulci and ventricles are prominent. Similar ventriculomegaly. No extra-axial fluid collections. Basal cisterns are patent. Osseous and Extracranial Structures: No calvarial fracture or significant soft tissue hematoma. FACE: Bones: No acute fracture. Multiple dental cavities and periapical lucencies. Orbits: No acute orbital injury. Paranasal Sinuses and Mastoids: Clear. Soft Tissues: No significant soft tissue hematoma. CERVICAL SPINE: Alignment and Vertebrae: No acute fracture or traumatic malalignment. Reversal of the lordosis due to degenerative changes. Vertebral bodies and posterior elements are intact. Preserved C1-C2 relationship with degenerative changes. Discs and Endplates: Disc space narrowing with endplate changes, anterior osteophytes and posterior disc osteophyte complexes at C3 C7 causing moderate central canal narrowing at C3-C5. Craniocervical Junction: Degenerative disease of C1-C2 is present without spinal canal narrowing. Other Findings: No prevertebral soft tissue swelling. Mild atherosclerotic calcifications at the bilateral carotid bifurcations. Emphysematous changes in the lung apices. Procedure Note Amanda Aldridge MD - 04/01/2025 CT HEAD WITHOUT CONTRAST, CT FACE WITHOUT CONTRAST, CT CERVICAL SPINEWITHOUT CONTRAST Referring clinician's provided indication for this examination in Epic:Head trauma, abnormal mental status. TECHNIQUE: CTs of the head, face, and cervical spine were performedwithout intravenous contrast using tailored dose modulation techniques.Images were reconstructed in the axial, coronal, and sagittal planes. COMPARISON: CT HEAD WITHOUT CONTRAST ; CT CERVICAL SPINEWITHOUT CONTRAST FINDINGS: HEAD: Brain Parenchyma: No midline shift, mass effect, parenchymal hemorrhage,or evidence of acute territorial infarct. Hypodensities in theperiventricular white matter, likely a manifestation of chronic smallvessel disease. Ventricular System and Extra-Axial Spaces: Sulci and ventricles areprominent. Similar ventriculomegaly. No extra-axial fluid collections.Basal cisterns are patent. Osseous and Extracranial Structures: No calvarial fracture or significantsoft tissue hematoma. FACE: Bones: No acute fracture. Multiple dental cavities and periapicallucencies. Orbits: No acute orbital injury. Paranasal Sinuses and Mastoids: Clear. Soft Tissues: No significant soft tissue hematoma. CERVICAL SPINE: Alignment and Vertebrae: No acute fracture or traumatic malalignment.Reversal of the lordosis due to degenerative changes. Vertebral bodies andposterior elements are intact. Preserved C1-C2 relationship withdegenerative changes. Discs and Endplates: Disc space narrowing with endplate changes, anteriorosteophytes and posterior disc osteophyte complexes at C3 C7 causingmoderate central canal narrowing at C3-C5. Craniocervical Junction: Degenerative disease of C1-C2 is present withoutspinal canal narrowing. Other Findings: No prevertebral soft tissue swelling. Mild atheroscleroticcalcifications at the bilateral carotid bifurcations. Emphysematouschanges in the lung apices. IMPRESSION: 1. No acute intracranial finding. 2. No acute maxillofacial fracture. 3. No acute fracture or traumatic malalignment of the cervical spine. 4. Degenerative changes of the cervical spine with moderate central canalnarrowing at C3 C5. 5. Multiple dental cavities and periapical lucencies. ATTESTATION: I, Amanda Aldridge as teaching physician, have reviewed theimages for this case and if necessary edited the report originally createdby Joelle Wooten. us Sidney Douglas MD IM CT XSPECIALTY ORDERABLES Final Result * CT HEAD WITHOUT CONTRAST (04/01/2025 5:17 PM EDT) Anatomical Region Laterality Modality Head Computed Tomogra phy 04/01/2025 5:39 PM EDT Impressions 04/01/2025 6:21 PM EDT 1. No acute intracranial finding. 2. No acute maxillofacial fracture. 3. No acute fracture or traumatic malalignment of the cervical spine. 4. Degenerative changes of the cervical spine with moderate central canal narrowing at C3 C5. 5. Multiple dental cavities and periapical lucencies. ATTESTATION: I, Amanda Aldridge as teaching physician, have reviewed the images for this case and if necessary edited the report originally created by Joelle Wooten. Narrative 04/01/2025 6:[address] HEAD WITHOUT CONTRAST, CT FACE WITHOUT CONTRAST, CT CERVICAL SPINE WITHOUT CONTRAST Referring clinician's provided indication for this examination in Epic: Head trauma, abnormal mental status. TECHNIQUE: CTs of the head, face, and cervical spine were performed without intravenous contrast using tailored dose modulation techniques. Images were reconstructed in the axial, coronal, and sagittal planes. COMPARISON: CT HEAD WITHOUT CONTRAST ; CT CERVICAL SPINE WITHOUT CONTRAST FINDINGS: HEAD: Brain Parenchyma: No midline shift, mass effect, parenchymal hemorrhage, or evidence of acute territorial infarct. Hypodensities in the periventricular white matter, likely a manifestation of chronic small vessel disease. Ventricular System and Extra-Axial Spaces: Sulci and ventricles are prominent. Similar ventriculomegaly. No extra-axial fluid collections. Basal cisterns are patent. Osseous and Extracranial Structures: No calvarial fracture or significant soft tissue hematoma. FACE: Bones: No acute fracture. Multiple dental cavities and periapical lucencies. Orbits: No acute orbital injury. Paranasal Sinuses and Mastoids: Clear. Soft Tissues: No significant soft tissue hematoma. CERVICAL SPINE: Alignment and Vertebrae: No acute fracture or traumatic malalignment. Reversal of the lordosis due to degenerative changes. Vertebral bodies and posterior elements are intact. Preserved C1-C2 relationship with degenerative changes. Discs and Endplates: Disc space narrowing with endplate changes, anterior osteophytes and posterior disc osteophyte complexes at C3 C7 causing moderate central canal narrowing at C3-C5. Craniocervical Junction: Degenerative disease of C1-C2 is present without spinal canal narrowing. Other Findings: No prevertebral soft tissue swelling. Mild atherosclerotic calcifications at the bilateral carotid bifurcations. Emphysematous changes in the lung apices. Procedure Note Amanda Aldridge MD - 04/01/2025 CT HEAD WITHOUT CONTRAST, CT FACE WITHOUT CONTRAST, CT CERVICAL SPINEWITHOUT CONTRAST Referring clinician's provided indication for this examination in Epic:Head trauma, abnormal mental status. TECHNIQUE: CTs of the head, face, and cervical spine were performedwithout intravenous contrast using tailored dose modulation techniques.Images were reconstructed in the axial, coronal, and sagittal planes. COMPARISON: CT HEAD WITHOUT CONTRAST ; CT CERVICAL SPINEWITHOUT CONTRAST FINDINGS: HEAD: Brain Parenchyma: No midline shift, mass effect, parenchymal hemorrhage,or evidence of acute territorial infarct. Hypodensities in theperiventricular white matter, likely a manifestation of chronic smallvessel disease. Ventricular System and Extra-Axial Spaces: Sulci and ventricles areprominent. Similar ventriculomegaly. No extra-axial fluid collections.Basal cisterns are patent. Osseous and Extracranial Structures: No calvarial fracture or significantsoft tissue hematoma. FACE: Bones: No acute fracture. Multiple dental cavities and periapicallucencies. Orbits: No acute orbital injury. Paranasal Sinuses and Mastoids: Clear. Soft Tissues: No significant soft tissue hematoma. CERVICAL SPINE: Alignment and Vertebrae: No acute fracture or traumatic malalignment.Reversal of the lordosis due to degenerative changes. Vertebral bodies andposterior elements are intact. Preserved C1-C2 relationship withdegenerative changes. Discs and Endplates: Disc space narrowing with endplate changes, anteriorosteophytes and posterior disc osteophyte complexes at C3 C7 causingmoderate central canal narrowing at C3-C5. Craniocervical Junction: Degenerative disease of C1-C2 is present withoutspinal canal narrowing. Other Findings: No prevertebral soft tissue swelling. Mild atheroscleroticcalcifications at the bilateral carotid bifurcations. Emphysematouschanges in the lung apices. IMPRESSION: 1. No acute intracranial finding. 2. No acute maxillofacial fracture. 3. No acute fracture or traumatic malalignment of the cervical spine. 4. Degenerative changes of the cervical spine with moderate central canalnarrowing at C3 C5. 5. Multiple dental cavities and periapical lucencies. ATTESTATION: I, Amanda Aldridge as teaching physician, have reviewed theimages for this case and if necessary edited the report originally createdby Joelle Wooten. us Sidney Douglas MD IMG CT HEAD/NECK Final Result * Hepatitis C antibody, qualitative (05/20/2019 5:38 AM EDT) HCV NON-REACTIV E NON-REACTI VE [facility] Blood 05/20/2019 5:38 AM EDT 05/20/2019 6:10 AM EDT us Tracey Stinson MANAGER SWITCH LAB BLOOD ORDERABLES Fi nal Result [facility] [address] [place] [address] from Last 3 Months or Most Recently Relevant to Health Maintenance Insurance 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 Agrees to intubation in the event respiratory status worsens. * Full Code Date Activated Date Inactivated Comments 12/17/2022 11:15 PM 06/19/2023 11:21 AM Question Answer Comments Code Status Confirmed With: Patient * Full Code Date Activated Date Inactivated Comments 03/01/2022 12:18 PM 12/17/2022 11:15 PM Question Answer Comments Code Status Confirmed With: Other (specify below ) Code Discussion Comments: presumed * Full Code Date Activated Date Inactivated Comments 06/06/2021 8:48 PM 03/01/2022 12:18 PM Question Answer Comments Code Status Confirmed With: Patient Care Teams Revenue Stamp Cutter Relationship Specialty Start Date End Date Kassy Cool MD [address] [place] [address] [email or web address] PCP - General Family Medicine 04/16/23 Additional Source Comments The information contained in this document represents components of the legal health record. It is not the complete legal health record.[facility]
--- OUTSIDE RECORDS SUMMARY | 2025-06-14 21:32 | XMS_ITS | Encounter Summary ---
Author Organization [facility] Address [address] [place] [address] [place] [address] Phone Care Team Providers Care Needle Molder Name Role Phone Kassy Cool MD Primary Care Provider + [phone] Encounter Details Date Type Department Care Team (Late st Contact Info) Description 07/15/2023 Procedure Pass [facility], Ct Scan - [facility] [address] [place] [address] Social History Tobacco Use Types Packs/Day Years [...] on file 01/24/2023 No 01/24/2023 No 01/24/2023 Digital Access Answer Date Recorded No 02/22/2023 No 02/22/2023 Reliable internet access at home? Not on file 02/22/2023 Device with a working camera? Not on file Sex and Gender Information Value Date Recorded [...] Raiza Mclain, RN Note: 06/19/23: Resides @ [address] [place] [address] ([employer]) Dr. Cool's cell [phone] if needed Previous inpatient detox facilities: [facility] is his preferred detox Formerly homeless [facility] in recovery supports General Carmen Juan RN Note: Dr. Cool states pt was in a temporary custodial run by [facility] in [place] for about 1 month Oct 2020 recently but he eloped from there. It is now closed. She requests that we add to his care plan to direct him to go directly to the custodial clinic to see her upon ED if he arrives here on a Friday or , call her either way if he is in the ED [phone]. Also ask pt where he is sleeping currently so she can track him down. documented as of this encounter Visit Diagnoses Not on filedocumented in this encounter Additional Health Concerns Infection Onset Date Last Indicated Resolved Time CoV-Risk 04/01/2024 04/01/2024 04/12/2024 1:21 AM EDT CoV-Risk 04/26/2025 04/26/2025 05/07/2025 1:21 AM EDT documented as of this encounter Care Teams Needle Molder Relationship Specialty Start Date End Date Kassy Cool MD [address] [place] [address] PCP - General Family Medicine 04/16/23 documented as of this encounter Additional Source Comments The information contained in this document represents components of the legal health record. It is not the complete legal health record.[facility]
--- OUTSIDE RECORDS SUMMARY | 2025-06-14 21:32 | XMS_ITS | Encounter Summary ---
Author Organization [facility] Address [address] [place] [address] [place] [address] Phone Care Team Providers Care Nursing Clinical Director Name Role Phone Kyia Valenzuela NP Primary Care Provider Kassy Cool MD Primary Care Provider Pcp, Unknown Primary Care Provider Unavailabl e Kassy Cool MD Primary Care Provider + [phone] Encounter Details Date Type Department Care Team (Late st Contact Info) Description 01/23/2021 Procedure Pass [facility], Ct Scan - [facility] [address] [place] [address] Social History Tobacco Use Types Packs/Day Years [...] Date of Assessment Author No Risk Indicated 01/25/2021 11:57 AM EDT Johnny Abbasi, RN * [place] Suicide Severity Rating Scale (Screener/Recent Self-Report) Question Answer Date of Assessment Author 1. Wish to be (Past 1 Month) No 01/25/2021 11:57 AM Johnny Mabry RN 2. Non-Specific Active Suicidal Thoughts (Past 1 Month) No 01/25/2021 11:57 AM Johnny Mabry RN 3. Active Suicidal Ideation with any Methods (Not Plan) Without Intent to Act (Past 1 Month) Yes 01/24/2021 8:20 AM Mik Lorenz RN 4. Active Suicidal Ideation with Some Intent to Act, Without Specific Plan (Past 1 Month) Yes 01/24/2021 8:20 AM Mik Lorenz RN 5. Active Suicidal Ideation with Specific Plan and Intent (Past 1 Month) No 01/24/2021 8:20 AM Mik Lorenz RN 6. Suicidal Behavior (Lifetime) No 01/25/2021 11:57 AM Johnny Mabry RN 6. Suicidal Behavior (3 Months) Yes 01/24/2021 8:20 AM Mik Lorenz RN documented as of this encounter Plan of Treatment Not on file documented as of this encounter Goals Goal Patient Goal Type Associated Problems Recent Progress Patient-Stated? Author Acute Care Plan Acute Care Plan No Raiza Mclain RN Note: 06/19/23: Resides @ [address] [place] [address] ([facility]) Dr. Cool's cell [phone] if needed Previous inpatient detox facilities: [facility] is his preferred detox Formerly homeless [employer] in recovery supports General No Carmen Peralta RN Note: Dr. Cool states pt was in a temporary [facility] run by [facility] in [place] for about 1 month Oct 2020 recently but he eloped from there. It is now closed. She requests that we add to his care plan to direct him to go directly to the [facility] clinic to see her upon ED if he arrives here on a Friday or , call her either way if he is in the ED [phone]. Also ask pt where he is sleeping currently so she can track him down. documented as of this encounter Visit Diagnoses Not on filedocumented in this encounter Additional Health Concerns Infection Onset Date Last Indicated Resolved Time MRSA Comment:Infection Loaded by the Load Infection Utility 01/02/2017 01/02/2017 11/13/2022 1:41 A M EST CoV-Risk 01/20/2021 01/20/2021 01/30/2021 1:23 AM EDT CoV-Risk 06/19/2023 06/19/2023 06/30/2023 1:22 AM EDT CoV-Risk 04/01/2024 04/01/2024 04/12/2024 1:2 1 AM EDT CoV-Risk 04/26/2025 04/26/2025 05/07/2025 1:21 AM EDT documented as of this encounter Care Teams Nursing Clinical Director Relationship Specialty Start Date End Date Kiya Valenzuela NP [address] [place] [address] [email or web address] PCP - General Family Medicine 10/08/20 04/30/21 Kassy Cool MD [address] [place] [id number] PCP - General Family Medicine 05/01/21 01/26/22 Pcp, Unknown PCP - General 01/27/22 03/04/22 Kassy Cool MD [address] [place] [address] PCP - General Family Medicine 04/16/23 documented as of this encounter Additional Source Comments The information contained in this document represents components of the legal health record. It is not the complete legal health record.[facility]
--- OUTSIDE RECORDS SUMMARY | 2025-06-14 21:32 | XMS_ITS | Encounter Summary ---
Author Organization [facility] Address [address] [place] [address] [place] [address] Phone Care Team Providers Care Plate Worker Helper Name Role Phone Hussein Vasquez MD Unavailable Kiya Valenzuela CIGARETTE MAKING MACHINE HOPPER FEEDER Primary Care Provider Kassy Cool MD Primary Care Provider Pcp, Unknown Primary Care Provider Unavailabl e Kassy Cool MD Primary Care Provider [phone] Encounter Details Date Type Department Care Team (Late st Contact Info) Description 11/06/2020 Transcribe Orders [facility] Specimen Processing [address] [place] [address] Gerson Romo, DO [address] [facility] [place] [address] [place] [address] [email or web address] Health examination of prisoner (Primary Dx); Encounter for screening for COVID-19 Social History Tobacco Use Types Packs/Day Years [...] Raiza Mclain, RN Note: 06/19/23: Resides @ [address] [place] [address] ([employer]) Dr. Cool's cell [phone] if needed Previous inpatient detox facilities: [facility] at [facility] is his preferred detox Formerly homeless documented as of this encounter Results * COVID-19 PCR Order (11/06/2020 11:22 AM EST) COVID Testing Status Specimen received in analyzing lab. Results should be available within 24 to 48 hrs. [facility] Symptomatic? NO [facility] Other 11/06/2020 11:2 2 AM EST 11/06/2020 11:24 AM EST us Gerson A Bigda DO BODY FLUIDS AND STOOLS ORDERABLE S Final Result Performing Organization Address City/State/[facility] Co de Phone Number [address] [address] [facility] [address] [place] [address] documented in this encounter Visit Diagnoses Diagnosis Health examination of prisoner- Primary Health examination of defined subpopulation Encounter for screening for COVID-19 documented in this encounter Additional Health Concerns Infection Onset Date Last Indicated Resolved Time MRSA Comment:Infection Loaded by the Load Infection Utility 01/02/2017 01/02/2017 11/13/2022 1:[address] CoV-Exposed Comment:Recent close contact documented in the COVID-19 PCR/PRO order 11/06/2020 11/06/2020 11/21/2020 1:[address] CoV-Risk 01/20/2021 01/20/2021 01/30/2021 1:23 AM EDT CoV-Risk 06/19/2023 06/19/2023 06/30/2023 1:22 AM EDT CoV-Risk 04/01/2024 04/01/2024 04/12/2024 1:21 AM EDT CoV-Risk 04/26/2025 04/26/2025 05/07/2025 1:21 AM EDT documented as of this encounter Care Teams Plate Worker Helper Relationship Specialty Start Date End Date Kiya Valenzuela NP [address] [place] [address] [email or web address] PCP - General Family Medicine 10/08/20 04/30/21 Kassy Cool MD [address] [place] [address] [email or web address] PCP - General Family Medicine 05/01/21 01/26/22 Pcp, Unknown PCP - General 01/27/22 03/04/22 Kassy Cool MD [address] [place] [address] [email or web address] PCP - General Family Medicine 04/16/23 Hussein Vasquez MD [address] [facility] [address] [place] [id number] [email or web address] Insurance Assigned Provider 05/04/20 01/06/21 documented as of this encounter Additional Source Comments The information contained in this document represents components of the legal health record. It is not the complete legal health record.[facility]
--- OUTSIDE RECORDS SUMMARY | 2025-06-14 21:32 | XMS_ITS | Encounter Summary ---
Author Organization [facility] Address [address] [facility] [address] [place] [address] Phone Care Team Providers Care Print Line Tailer Name Role Phone Kassy Cool MD Primary Care Provider + [phone] Encounter Details Date Type Department Care Team (Late st Contact Info) Description 04/01/2025 Procedure Pass [facility], Ct Scan - [facility] [address] [place] [address] Social History Tobacco Use Types Packs/Day Years [...] buy more. I choose not to answer 03/28/2025 Within the past 6 months the food we bought just didn't last and we didn't have enough money to get more. I choose not to answer 03/28/2025 Residential Stability Answer Date Recor ded What is your housing situation today? I choose n ot to answer 03/28/2025 How many times have you move d in the past 12 months? I choose not to answer 03/28/2025 Paying for Meds Answer Date Recorded Do you have trouble paying for medicines? I carmen se not to answer 03/28/2025 Paying Utility Bills Answer Date Record ed Do you have trouble paying y our heating or electricity bill? I choose not to answer 03/28/2025 Transportation Answer Date Recorded Has the lack of transportati on kept you from medical appointments or from getting medications? I choose not to answer 03/28/2025 Digital Access Answer Date Recorded No 03/28/2025 No 03/28/2025 Do you have reliable internet access at home? I choose not to answer 03/28/2025 Do you have a device (e.g., phone, tablet, computer) with a working camera? I choose not to answer 03/28/2025 Intimate Partner Violence Answer Date R ecorded Are you denied basic needs s uch as food, clothing, or medical care? No 03/28/2025 In the past 12 months have y ou been in a relationship with a person who hurts, threatens, or tries to control you? No 03/28/2025 Are you denied basic needs s uch as food, clothing, or medical care? No 03/28/2025 In the past 12 months have y ou been in a relationship with a person who hurts, threatens, or tries to control you? No 03/28/2025 Sex and Gender Information Value Date Recorded Sex Assigned at Male 12/21/2017 8:18 PM EDT Legal Sex Male 9:43 PM EDT Gender Identity Male 12/21/2017 8:18 PM EDT Sexual Orientation Straight 01/14/2018 1: 04 AM EDT documented as of this encounter Functional Status * Calculated C-SSRS Risk Score (Lifetime/Recent) Answer Date of Assessment Author No Risk Indicated 04/01/2025 5:35 PM EDT Arielle Saxena RN * [place] Suicide Severity Rating Scale (Screener/Recent Self-Report) Question Answer Date of Assessment Author 1. Wish to be (Past 1 Month) No 025 5:35 PM EDT Marlene Saxena RN 2. Non-Specific Active Suici nacho Thoughts (Past 1 Month) No 04/01/2025 5:35 PM EDT Marlene Saxena RN 6. Suicidal Behavior (Lifetime) No 5:35 PM EDT Marlene Saxnea RN documented as of this encounter Plan of Treatment Not on file documented as of this encounter Goals Goal Patient Goal Type Associated Problems Recent Progress Patient-Stated? Author Acute Care Plan Acute Care Plan No Raiza Mclain, RN Note: 06/19/23: Resides @ [address] [place] [address] ([employer]) Dr. Cool's cell [phone] if needed Previous inpatient detox facilities: [facility] is his preferred detox Formerly homeless Engage in recovery supports General No Carmen Peralta, BRICE Note: Dr. Cool states pt was in a temporary snf run by [facility] in [place] for about 1 month Oct 2020 recently but he eloped from there. It is now closed. She requests that we add to his care plan to direct him to go directly to the snf clinic to see her upon ED if he arrives here on a Friday or , call her either way if he is in the ED [phone]. Also ask pt where he is sleeping currently so she can track him down. documented as of this encounter Visit Diagnoses Not on filedocumented in this encounter Additional Health Concerns Infection Onset Date Last Indicated Resolved Time CoV-Risk 04/26/2025 04/26/2025 05/07/2025 1:21 AM EDT documented as of this encounter Care Teams Print Line Tailer Relationship Specialty Start Date End Date Kassy Cool MD [address] [place] [address] [email or web address] PCP - General Family Medicine 04/16/23 documented as of this encounter Additional Source Comments The information contained in this document represents components of the legal health record. It is not the complete legal health record.[facility]
--- OUTSIDE RECORDS SUMMARY | 2025-06-14 21:32 | XMS_ITS | Encounter Summary ---
Author Organization [facility] Address [address] [place] [address] [place] [address] Phone Care Team Providers Care Gear Cutter Name Role Phone Kiya Valenzuela NP Primary Care Provider Hussein Vasquez MD Unavailable Kiya Valenzuela CANCER SPEC Primary Care Provider Kassy Cool MD Primary Care Provider Pcp, Unknown Primary Care Provider Unavailabl e Kassy Cool MD Primary Care Provider Encounter Details Date Type Department Care Team (Late st Contact Info) Description 05/15/2020 Procedure Pass [facility], Ct Scan - [address] [address] Social History Tobacco Use Types Packs/Day Years [...] documented as of this encounter Care Teams Gear Cutter Relationship Specialty Start Date End Date Kiya Valenzuela NP [address] [place] [address] [email or web address] PCP - General Family Medicine 09/03/19 10/07/20 Kiya Valenzuela NP [address] [place] [address] [email or web address] PCP - General Family Medicine 10/08/20 04/30/21 Kassy Cool MD [address] [place] [address] [email or web address] PCP - General Family Medicine 05/01/21 01/26/22 Pcp, Unknown PCP - General 01/27/22 03/04/22 Kassy Cool MD [address] [place] [address] [email or web address] PCP - General Family Medicine 04/16/23 Hussein Vasquez MD [address] [facility] [address] [place] [address] [email or web address] Assigned Provider 05/04/20 01/06/21 documented as of this encounter Additional Source Comments The information contained in this document represents components of the legal health record. It is not the complete legal health record.[facility]
--- OUTSIDE RECORDS SUMMARY | 2025-06-14 21:32 | XMS_ITS | Encounter Summary ---
Author Organization [facility] Address [address] [facility] [address] [place] [address] Phone Care Team Providers Care Aoc Plans Intelligence Officer Chief Name Role Phone Kassy Cool MD Primary Care Provider + [phone] Encounter Details Date Type Department Care Team (Late st Contact Info) Description 04/01/2024 Procedure Pass [facility], Ct Scan - [facility] [address] [place] [address] Social History Tobacco Use Types Packs/Day Years [...] before we got money to buy more. Sometimes True 04/04/2024 Within the past 6 months the food we bought just didn't last and we didn't have enough money to get more. I choose not to answer 04/04/2024 Residential Stability Answer Date Recor ded What is your housing situation today? I have a place to live today, but I am worried about losing it in the next 3 months 04/04/2024 How many times have you move d in the past 12 months? I choose not to answer 04/04/2024 Paying for Meds Answer Date Recorded Do you have trouble paying for medicines? I carmen se not to answer 04/04/2024 Paying Utility Bills Answer Date Record ed Do you have trouble paying y our heating or electricity bill? I choose not to answer 04/04/2024 Transportation Answer Date Recorded Has the lack of transportati on kept you from medical appointments or from getting medications? No 04/04/2024 Digital Access Answer Date Recorded No 04/04/2024 Yes 04/04/2024 Do you have reliable internet access at home? I choose not to answer 04/04/2024 Do you have a device (e.g., phone, tablet, computer) with a working camera? Yes 04/04/2024 Sex and Gender Information Value Date Recorded Sex Assigned at Male 12/21/2017 8:18 PM EDT Legal Sex Male 9:43 PM EDT Gender Identity Male 12/21/2017 8:18 PM EDT Sexual Orientation Straight 01/14/2018 1: 04 AM EDT documented as of this encounter Functional Status * Calculated C-SSRS Risk Score (Lifetime/Recent) Answer Date of Assessment Author No Risk Indicated 04/01/2024 10:11 AM EDT Piedad Shields RN * [place] Suicide Severity Rating Scale (Screener/Recent Self-Report) Question Answer Date of Assessment Author 1. Wish to be (Past 1 Month) No 024 10:11 AM EDT Piedad Shields RN 2. Non-Specific Active Suici nacho Thoughts (Past 1 Month) No 04/01/2024 10:11 AM EDT Jean Paul Shields RN 6. Suicidal Behavior (Lifetime) No 10:11 AM EDT Piedad Shields RN documented as of this encounter Plan of Treatment Not on file documented as of this encounter Goals Goal Patient Goal Type Associated Problems Recent Progress Patient-Stated? Author Acute Care Plan Acute Care Plan No Raiza Mclain, RN Note: 06/19/23: Resides @ [address] [place] [address] ([employer]) Dr. Cool's cell [phone] if needed Previous inpatient detox facilities: [facility] is his preferred detox Formerly homeless Engage in recovery supports General No Carmen Peralta, RN Note: Dr. Cool states pt was in a temporary [facility] run by [facility] in [place] for about 1 month Oct 2020 recently but he eloped from there. It is now closed. She requests that we add to his care plan to direct him to go directly to the mcfp clinic to see her upon ED if he arrives here on a Friday or , call her either way if he is in the ED [phone]. Also ask pt where he is sleeping currently so she can track him down. documented as of this encounter Visit Diagnoses Not on filedocumented in this encounter Additional Health Concerns Infection Onset Date Last Indicated Resolved Time CoV-Risk 04/01/2024 04/01/2024 04/12/2024 1:21 AM EDT CoV-Risk 04/26/2025 04/26/2025 05/07/2025 1:21 AM EDT documented as of this encounter Care Teams Aoc Plans Intelligence Officer Chief Relationship Specialty Start Date End Date Kassy Cool MD [address] [place] [address] [email or web address] PCP - General Family Medicine 04/16/23 documented as of this encounter Additional Source Comments The information contained in this document represents components of the legal health record. It is not the complete legal health record.[facility]
--- OUTSIDE RECORDS SUMMARY | 2025-06-14 21:32 | XMS_ITS | Encounter Summary ---
Author Organization [facility] Address [address] [place] [address] [place] [address] Phone Care Team Providers Care Tie Worker Name Role Phone Kassy Cool MD Primary Care Provider + [phone] Encounter Details Date Type Department Care Team (Late st Contact Info) Description 06/19/2023 Procedure Pass [facility] [address] [place] [address] Social History Tobacco Use Types Packs/Day Years Used Date Smoking Tobacco: Every Day Cigarettes Smokeless Tobacco: Never Alcohol Use Standard Drinks/Week Comments Yes 0 (1 standard drink = 0.6 oz pure alcohol) 10-15 nips daily and 3, 24 oz beers Education Answer Date Recorded Are you interested in more education? Not on tlaat e 01/24/2023 Are you concerned about learning? [...] Date of Assessment Author No Risk Indicated 06/19/2023 12:24 AM EDT Lianet Waller RN * [place] Suicide Severity Rating Scale (Screener/Recent Self-Report) Question Answer Date of Assessment Author 1. Wish to be (Past 1 Month) No 06/19/2023 12:24 AM EDT Lianet Waller RN 2. Non-Specific Active Suicidal Thoughts (Past 1 Month) No 06/19/2023 12:24 AM EDT Lianet Waller RN 6. Suicidal Behavior (Lifetime) No 06/19/2023 12:24 AM EDT Lianet Waller RN documented as of this encounter Plan of Treatment Not on file documented as of this encounter Goals Goal Patient Goal Type Associated Problems Recent Progress Patient-Stated? Author Acute Care Plan Acute Care Plan No Raiza Mclain RN Note: 06/19/23: Resides @ [address] [place] [address] ([employer]) Dr. Cool's cell [phone] if needed Previous inpatient detox facilities: [facility] is his preferred detox Formerly homeless Engage in recovery supports General No Carmen Peralta RN Note: Dr. Cool states pt was in a temporary custodial run by [facility] in [place] for about 1 month Oct 2020 recently but he eloped from there. It is now closed. She requests that we add to his care plan to direct him to go directly to the custodial clinic to see her upon ED if he arrives here on a Friday or , call her either way if he is in the ED [phone]. Also ask pt where he is sleeping [...] documented as of this encounter Care Teams Tie Worker Relationship Specialty Start Date End Date Kassy Cool MD [address] [place] [address] [email or web address] PCP - General Family Medicine 04/16/23 documented as of this encounter Additional Source Comments The information contained in this document represents components of the legal health record. It is not the complete legal health record.[facility]
--- OUTSIDE RECORDS SUMMARY | 2025-06-14 21:32 | XMS_ITS | Encounter Summary ---
Author Organization [facility] Address [address] [place] [address] [place] [address] Phone Care Team Providers Care Field Placement Director Name Role Phone Kassy Cool MD Primary Care Provider + [phone] Encounter Details Date Type Department Care Team (Late st Contact Info) Description 06/14/2023 Procedure Pass [facility], Ct Scan - [address] [address] Social History Tobacco Use Types Packs/Day Years [...] Date of Assessment Author No Risk Indicated 06/15/2023 6:50 AM EDT Taylor CaputoBRICE * [place] Suicide Severity Rating Scale (Screener/Recent Self-Report) Question Answer Date of Assessment Author 1. Wish to be (Past 1 Month) No 023 6:50 AM EDT Taylor Caputo RN 2. Non-Specific Active Suici nacho Thoughts (Past 1 Month) No 06/15/2023 6:50 AM EDT Taylor Caputo RN 6. Suicidal Behavior (Lifetime) No 6:50 AM EDT Taylor Caputo RN documented as of this encounter Plan of Treatment Not on file documented as of this encounter Goals Goal Patient Goal Type Associated Problems Recent Progress Patient-Stated? Author Acute Care Plan Acute Care Plan No Raiza Mclain RN Note: 06/19/23: Resides @ [address] [place] [address] ([employer]) Dr. Cool's cell [phone] if needed Previous inpatient detox facilities: [facility] is his preferred detox Formerly homeless Engage in recovery supports General No Carmen Peralta RN Note: Dr. Cool states pt was in a temporary usp run by [facility] in [place] for about 1 month Oct 2020 recently but he eloped from there. It is now closed. She requests that we add to his care plan to direct him to go directly to the usp clinic to see her upon ED if he arrives here on a Friday or , call her either way if he is in the ED [phone]. Also ask pt where he is sleeping [...] documented as of this encounter Care Teams Field Placement Director Relationship Specialty Start Date End Date Kassy Cool MD [address] [place] [address] [email or web address] PCP - General Family Medicine 04/16/23 documented as of this encounter Additional Source Comments The information contained in this document represents components of the legal health record. It is not the complete legal health record.[facility]
--- OUTSIDE RECORDS SUMMARY | 2025-06-14 21:32 | XMS_ITS | Encounter Summary ---
Author Organization [facility] Address [address] [place] [address] [place] [address] Phone Care Team Providers Care Senior Outside Sales Representative Name Role Phone Kassy Cool MD Primary Care Provider + [phone] Encounter Details Date Type Department Care Team (Late st Contact Info) Description 10/21/2023 Procedure Pass [facility], Ct Scan - [address] [address] Social History Tobacco Use Types Packs/Day Years [...] Date of Assessment Author No Risk Indicated 10/21/2023 6:39 PM Jojo Bell * [place] Suicide Severity Rating Scale (Screener/Recent Self-Report) Question Answer Date of Assessment Author 1. Wish to be (Past 1 Month) No 024 6:39 PM EST Jojo Hairston 2. Non-Specific Active Suici nacho Thoughts (Past 1 Month) No 10/21/2023 6:39 PM EST China Hairston on 6. Suicidal Behavior (Lifetime) No 6:39 PM EST Jojo Hairston documented as of this encounter Plan of Treatment Not on file documented as of this encounter Goals Goal Patient Goal Type Associated Problems Recent Progress Patient-Stated? Author Acute Care Plan Acute Care Plan No Raiza Mclain, RN Note: 06/19/23: Resides @ [address] [place] [address] ([facility]) Dr. Cool's cell [phone] if needed Previous inpatient detox facilities: [facility] is his preferred detox Formerly homeless Engage in recovery supports General No Carmen Peralta, BRICE Note: Dr. Cool states pt was in a temporary nursing home run by [facility] in [place] for about 1 month Oct 2020 recently but he eloped from there. It is now closed. She requests that we add to his care plan to direct him to go directly to the nursing home clinic to see her upon ED if he arrives here on a Friday or , call her either way if he is in the ED [phone]. Also ask pt where he is sleeping currently so she can track him down. documented as of this encounter Visit Diagnoses Not on filedocumented in this encounter Additional Health Concerns Infection Onset Date Last Indicated Resolved Time CoV-Risk 04/01/2024 04/01/2024 04/12/2024 1:21 AM EDT CoV-Risk 04/26/2025 04/26/2025 05/07/2025 1:21 AM EDT documented as of this encounter Care Teams Senior Outside Sales Representative Relationship Specialty Start Date End Date Kassy Cool MD [address] [place] [address] [email or web address] PCP - General Family Medicine 04/16/23 documented as of this encounter Additional Source Comments The information contained in this document represents components of the legal health record. It is not the complete legal health record.[facility]
--- OUTSIDE RECORDS SUMMARY | 2025-06-14 21:32 | XMS_ITS | Encounter Summary ---
Author Organization [facility] Address [address] [place] [address] [place] [address] Phone Care Team Providers Care Supervisor Cold Rolling Name Role Phone Kassy Cool MD Primary Care Provider + [phone] Encounter Details Date Type Department Care Team (Late st Contact Info) Description 10/21/2023 Procedure Pass [facility], Ct Scan - [address] [address] Social History Tobacco Use Types Packs/Day Years [...] Indicated 10/21/2023 6:39 PM Jojo Bell * [place] Suicide Severity Rating Scale (Screener/Recent Self-Report) Question [...] Raiza Mclain, RN Note: 06/19/23: Resides @ [address] [place] [address] ([facility]) Dr. Cool's cell [phone] if needed Previous inpatient detox facilities: [facility] is his preferred detox Formerly homeless Engage in recovery supports General No Carmen Peralta, BRICE Note: Dr. Cool states pt was in a temporary correction run by [facility] in [place] for about 1 month Oct 2020 recently but he eloped from there. It is now closed. She requests that we add to his care plan to direct him to go directly to the correction clinic to see her upon ED if he arrives here on a Friday or , call her either way if he is in the ED [phone]. Also ask pt where he is sleeping currently so she can track him down. documented as of this encounter Visit Diagnoses Not on filedocumented in this encounter Additional Health Concerns Infection Onset Date Last Indicated Resolved Time CoV-Risk 04/01/2024 04/01/2024 04/12/2024 1:21 AM EDT CoV-Risk 04/26/2025 04/26/2025 05/07/2025 1:21 AM EDT documented as of this encounter Care Teams Supervisor Cold Rolling Relationship Specialty Start Date End Date Kassy Cool MD [address] [place] [address] [email or web address] PCP - General Family Medicine 04/16/23 documented as of this encounter Additional Source Comments The information contained in this document represents components of the legal health record. It is not the complete legal health record.[facility]
--- OUTSIDE RECORDS SUMMARY | 2025-06-14 21:32 | XMS_ITS | Encounter Summary ---
Author Organization [facility] Address [address] [place] [address] [place] [address] Phone Care Team Providers Care Toy Trains And Accessories Salesperson Name Role Phone Kiya Valenzuela NP Primary Care Provider Kassy Cool MD Primary Care Provider Pcp, Unknown Primary Care Provider Unavailabl e Kassy Cool MD Primary Care Provider + [phone] Encounter Details Date Type Department Care Team (Late st Contact Info) Description 01/23/2021 Procedure Pass [facility], Ct Scan - [facility] [address] [place] [address] Social History Tobacco Use Types Packs/Day Years [...] 11:57 AM EDT Johnny Abbasi, RN * [place] Suicide Severity Rating Scale (Screener/Recent Self-Report) Question [...] Raiza Mclain RN Note: 06/19/23: Resides @ [address] [place] [address] ([facility]) Dr. Cool's cell [phone] if needed Previous inpatient detox facilities: [facility] is his preferred detox Formerly homeless Engage in recovery supports General No Carmen Peralta RN Note: Dr. Cool states pt was in a temporary fdc run by [facility] in [place] for about 1 month Oct 2020 recently but he eloped from there. It is now closed. She requests that we add to his care plan to direct him to go directly to the fdc clinic to see her upon ED if he arrives here on a Friday or , call her either way if he is in the ED [phone]. Also ask pt where he is sleeping [...] documented as of this encounter Care Teams Toy Trains And Accessories Salesperson Relationship Specialty Start Date End Date Kiya Valenzuela NP [address] [place] [address] [email or web address] PCP - General Family Medicine 10/08/20 04/30/21 Kassy Cool MD [address] [place] [address] [email or web address] PCP - General Family Medicine 05/01/21 01/26/22 Pcp, Unknown PCP - General 01/27/22 03/04/22 Kassy Cool MD [address] [place] [address] [email or web address] PCP - General Family Medicine 04/16/23 documented as of this encounter Additional Source Comments The information contained in this document represents components of the legal health record. It is not the complete legal health record.[facility]
--- OUTSIDE RECORDS SUMMARY | 2025-06-14 21:32 | XMS_ITS | Encounter Summary ---
Author Organization [facility] Address [address] [place] [address] [place] [address] Phone Care Team Providers Care Typewriter Assembly And Parts Inspector Name Role Phone Kassy Cool MD Primary Care Provider + [phone] Encounter Details Date Type Department Care Team (Late st Contact Info) Description 11/26/2023 Procedure Pass [facility], Ct Scan - [address] [address] Social History Tobacco Use Types Packs/Day Years [...] Date of Assessment Author No Risk Indicated 11/28/2023 8:09 PM Henny Saldana RN * [place] Suicide Severity Rating Scale (Screener/Recent Self-Report) Question Answer Date of Assessment Author 1. Wish to be (Past 1 Month) No 11/28/2023 8:09 PM Henny Saldana RN 2. Non-Specific Active Suicidal Thoughts (Past 1 Month) No 11/28/2023 8:09 PM Henny Saldana RN 6. Suicidal Behavior (Lifetime) No 11/28/2023 8:09 PM Henny Saldana RN documented as of this encounter Plan of Treatment Not on file documented as of this encounter Goals Goal Patient Goal Type Associated Problems Recent Progress Patient-Stated? Author Acute Care Plan Acute Care Plan No Raiza Mclain RN Note: 06/19/23: Resides @ [address] [place] [address] ([employer]) Dr. Cool's cell [phone] if needed Previous inpatient detox facilities[place] [facility] is his preferred detox Formerly homeless Engage in recovery supports General No Carmen Peralta RN Note: Dr. Cool states pt was in a temporary snf run by [facility] in [place] for about 1 month Oct 2020 recently but he eloped from there. It is now closed. She requests that we add to his care plan to direct him to go directly to the snf clinic to see her upon ED if he arrives here on a Friday or , call her either way if he is in the ED [phone]. Also ask pt where he is sleeping currently so she can track him down. documented as of this encounter Visit Diagnoses Not on filedocumented in this encounter Additional Health Concerns Infection Onset Date Last Indicated Resolved Time CoV-Risk 04/01/2024 04/01/2024 04/12/2024 1:21 AM EDT CoV-Risk 04/26/2025 04/26/2025 05/07/2025 1:21 AM EDT documented as of this encounter Care Teams Typewriter Assembly And Parts Inspector Relationship Specialty Start Date End Date Kassy Cool MD [address] [place] [address] [email or web address] PCP - General Family Medicine 04/16/23 documented as of this encounter Additional Source Comments The information contained in this document represents components of the legal health record. It is not the complete legal health record.[facility]
--- OUTSIDE RECORDS SUMMARY | 2025-06-14 21:32 | XMS_ITS | Encounter Summary ---
Author Organization [facility] Address [address] [place] [address] [place] [address] Phone Care Team Providers Care Paint Brush Maker Name Role Phone Kassy Cool MD Primary Care Provider + [phone] Encounter Details Date Type Department Care Team (Late st Contact Info) Description 05/23/2023 Procedure Pass [facility] [address] [place] [address] Social History Tobacco Use Types Packs/Day Years [...] Date of Assessment Author No Risk Indicated 05/24/2023 3:53 AM EDT Janay weinberg, Cathie Atkinson RN * [place] Suicide Severity Rating Scale (Screener/Recent Self-Report) Question Answer Date of Assessment Author 1. Wish to be (Past 1 Month) No 05/24/2023 3:53 AM EDT Cathie Erickson RN 2. Non-Specific Active Suicidal Thoughts (Past 1 Month) No 05/24/2023 3:53 AM EDT Cathie Erickson RN 6. Suicidal Behavior (Lifetime) No 05/24/2023 3:53 AM EDT Cathie Erickson RN documented as of this encounter Plan of Treatment Not on file documented as of this encounter Goals Goal Patient Goal Type Associated Problems Recent Progress Patient-Stated? Author Acute Care Plan Acute Care Plan No Riaza Mclain RN Note: 06/19/23: Resides @ [address] [place] [address] ([employer]) Dr. Cool's cell [phone] if needed Previous inpatient detox facilities: [facility] is his preferred detox Formerly homeless Engage in recovery supports General No Carmen Peralta RN Note: Dr. Cool states pt was in a temporary custodial run by [facility] in [place] for about 1 month Oct 2020 recently but he eloped from there. It is now closed. She requests that we add to his care plan to direct him to go directly to the custodial clinic to see her upon ED if he arrives here on a Friday or , call her either way if he is in the ED [phone]. Also ask pt where he is sleeping [...] documented as of this encounter Care Teams Paint Brush Maker Relationship Specialty Start Date End Date Kassy Cool MD [address] [place] [address] [email or web address] PCP - General Family Medicine 04/16/23 documented as of this encounter Additional Source Comments The information contained in this document represents components of the legal health record. It is not the complete legal health record.[facility]
--- OUTSIDE RECORDS SUMMARY | 2025-06-14 21:32 | XMS_ITS | Encounter Summary ---
Author Organization [facility] Address [address] [place] [address] [place] [address] Phone Care Team Providers Care Dolphin Researcher Name Role Phone Kassy Cool MD Primary Care Provider + [phone] Encounter Details Date Type Department Care Team (Late st Contact Info) Description 09/17/2023 Procedure Pass [facility], Ct Scan - [address] [address] Social History Tobacco Use Types Packs/Day Years [...] Date of Assessment Author No Risk Indicated 09/17/2023 1:11 PM Raven Ding RN * [place] Suicide Severity Rating Scale (Screener/Recent Self-Report) Question Answer Date of Assessment Author 1. Wish to be (Past 1 Month) No 023 1:11 PM Raven Ding RN 2. Non-Specific Active Suici nacho Thoughts (Past 1 Month) No 09/17/2023 1:11 PM Mary Ding RN 6. Suicidal Behavior (Lifetime) No 3 1:11 PM Raven Ding RN documented as of this encounter Plan of Treatment Not on file documented as of this encounter Goals Goal Patient Goal Type Associated Problems Recent Progress Patient-Stated? Author Acute Care Plan Acute Care Plan No Raiza Mclain RN Note: 06/19/23: Resides @ [address] [place] [address] ([employer]) Dr. Cool's cell [phone] if needed Previous inpatient detox facilities: [facility] is his preferred detox Formerly homeless Engage in recovery supports General No Carmen Peralta RN Note: Dr. Cool states pt was in a temporary skilled nursing run by [facility] in [place] for about 1 month Oct 2020 recently but he eloped from there. It is now closed. She requests that we add to his care plan to direct him to go directly to the skilled nursing clinic to see her upon ED if he arrives here on a Friday or , call her either way if he is in the ED [phone]. Also ask pt where he is sleeping currently so she can track him down. documented as of this encounter Visit Diagnoses Not on filedocumented in this encounter Additional Health Concerns Infection Onset Date Last Indicated Resolved Time CoV-Risk 04/01/2024 04/01/2024 04/12/2024 1:21 AM EDT CoV-Risk 04/26/2025 04/26/2025 05/07/2025 1:21 AM EDT documented as of this encounter Care Teams Dolphin Researcher Relationship Specialty Start Date End Date Kassy Cool MD [address] [place] [address] [email or web address] PCP - General Family Medicine 04/16/23 documented as of this encounter Additional Source Comments The information contained in this document represents components of the legal health record. It is not the complete legal health record.[facility]
--- OUTSIDE RECORDS SUMMARY | 2025-06-14 21:32 | XMS_ITS | Encounter Summary ---
Author Organization [facility] Address [address] [place] [address] [place] [address] Phone Care Team Providers Care Software Consultant Name Role Phone Kiya Valenzuela NP Primary Care Provider Hussein Vasquez MD Unavailable Kiya Valeznuela NP Primary Care Provider Kassy Cool MD Primary Care Provider Pcp, Unknown Primary Care Provider Unavailabl e Kassy Cool MD Primary Care Provider Encounter Details Date Type Department Care Team (Late st Contact Info) Description 08/09/2020 Procedure Pass [facility], Ct Scan - [address] [address] Social History Tobacco Use Types Packs/Day Years [...] documented as of this encounter Care Teams Software Consultant Relationship Specialty Start Date End Date Kiya Valenzuela NP [address] [place] [address] [email or web address] PCP - General Family Medicine 09/03/19 10/07/20 Kiya Valenzuela NP [address] [place] [address] [email or web address] PCP - General Family Medicine 10/08/20 04/30/21 Kassy Cool MD [address] [place] [address] [email or web address] PCP - General Family Medicine 05/01/21 01/26/22 Pcp, Unknown PCP - General 01/27/22 03/04/22 Kassy Cool MD [address] [place] [address] [email or web address] PCP - General Family Medicine 04/16/23 Hussein Vasquez MD [address] [facility] [address] [place] [address] [email or web address] Insurance Assigned Provider 05/04/20 01/06/21 documented as of this encounter Additional Source Comments The information contained in this document represents components of the legal health record. It is not the complete legal health record.[facility]
--- OUTSIDE RECORDS SUMMARY | 2025-06-14 21:32 | XMS_ITS | Encounter Summary ---
Author Organization [facility] Address [address] [place] [address] [place] [address] Phone Care Team Providers Care Shoe Cleaner Name Role Phone Kassy Cool MD Primary Care Provider + [phone] Encounter Details Date Type Department Care Team (Late st Contact Info) Description 09/17/2023 Procedure Pass [facility], Ct Scan - [address] [address] Social History Tobacco Use Types Packs/Day Years [...] 09/17/2023 1:11 PM Raven Ding RN * [place] Suicide Severity Rating Scale (Screener/Recent Self-Report) Question Answer Date of Assessment Author 1. Wish to be (Past 1 Month) No 023 1:11 PM Raven Ding RN 2. Non-Specific Active Suici nacoh Thoughts (Past 1 Month) No 09/17/2023 1:11 [...] Mclain RN Note: 06/19/23: Resides @ [address] [place] [address] ([employer]) Dr. Cool's cell [phone] if needed Previous inpatient detox facilities: [facility] is his preferred detox Formerly homeless Engage in recovery supports General No Carmen Peralta RN Note: Dr. Cool states pt was in a temporary half-way run by [facility] in [place] for about 1 month Oct 2020 recently but he eloped from there. It is now closed. She requests that we add to his care plan to direct him to go directly to the half-way clinic to see her upon ED if he arrives here on a Friday or , call her either way if he is in the ED [phone]. Also ask pt where he is sleeping currently so she can track him down. documented as of this encounter Visit Diagnoses Not on filedocumented in this encounter Additional Health Concerns Infection Onset Date Last Indicated Resolved Time CoV-Risk 04/01/2024 04/01/2024 04/12/2024 1:21 AM EDT CoV-Risk 04/26/2025 04/26/2025 05/07/2025 1:21 AM EDT documented as of this encounter Care Teams Shoe Cleaner Relationship Specialty Start Date End Date Kassy Cool MD [address] [place] [address] [email or web address] PCP - General Family Medicine 04/16/23 documented as of this encounter Additional Source Comments The information contained in this document represents components of the legal health record. It is not the complete legal health record.[facility]
--- OUTSIDE RECORDS SUMMARY | 2025-06-14 21:32 | XMS_ITS | Encounter Summary ---
Author Organization [facility] Address [address] [place] [address] [place] [address] Phone Care Team Providers Care Fund Controller Name Role Phone Kiya Valenzuela NP Primary Care Provider Hussein Vasquez MD Unavailable Kiya Valenzuela NP Primary Care Provider Kassy Cool MD Primary Care Provider Pcp, Unknown Primary Care Provider Unavailabl e Kassy Cool MD Primary Care Provider Encounter Details Date Type Department Care Team (Late st Contact Info) Description 08/09/2020 Procedure Pass [facility], Ct Scan - [address] [address] Social History Tobacco Use Types Packs/Day Years [...] documented as of this encounter Care Teams Fund Controller Relationship Specialty Start Date End Date Kiya Valenzuela NP [address] [place] [address] [email or web address] PCP - General Family Medicine 09/03/19 10/07/20 Kiya Valenzuela NP [address] [place] [address] [email or web address] PCP - General Family Medicine 10/08/20 04/30/21 Kassy Cool MD [address] [place] [address] [email or web address] PCP - General Family Medicine 05/01/21 01/26/22 Pcp, Unknown PCP - General 01/27/22 03/04/22 Kassy Cool MD [address] [place] [address] [email or web address] PCP - General Family Medicine 04/16/23 Hussein Vasquez MD 230 [facility] [address] [place] [address] [email or web address] Assigned Provider 05/04/20 01/06/21 documented as of this encounter Additional Source Comments The information contained in this document represents components of the legal health record. It is not the complete legal health record.[facility]
--- OUTSIDE RECORDS SUMMARY | 2025-06-14 21:32 | XMS_ITS | Encounter Summary ---
Author Organization [facility] Address [address] [place] [address] [place] [address] Phone Care Team Providers Care Coding File Clerk Name Role Phone Kiya Valenzuela BUILDER BEAM Primary Care Provider Hussein Vasquez MD Unavailable Kiya Valenzuela BUILDER BEAM Primary Care Provider Kassy Cool MD Primary Care Provider Pcp, Unknown Primary Care Provider Unavailabl e Kassy Cool MD Primary Care Provider Encounter Details Date Type Department Care Team (Late st Contact Info) Description 08/20/2020 Procedure Pass [facility], Ct Scan - [address] [address] Social History Tobacco Use Types Packs/Day Years [...] Date of Assessment Author No Risk Indicated 08/23/2020 12:57 PM Patti Sheikh * [place] Suicide Severity Rating Scale (Screener/Recent Self-Report) Question Answer Date of Assessment Author 1. Wish to be (Past 1 Month) No 020 12:57 PM Patti Pettit 2. Non-Specific Active Suici nacho Thoughts (Past 1 Month) No 08/23/2020 12:57 PM Kacie Pettit 6. Suicidal Behavior (Lifetime) No 0 12:57 PM Patti Pettit documented as of this encounter Plan of [...] documented as of this encounter Care Teams Coding File Clerk Relationship Specialty Start Date End Date Kiya Valenzuela NP [address] [place] [address] [email or web address] PCP - General Family Medicine 09/03/19 10/07/20 Kiya Valenzuela NP [address] [place] [address] [email or web address] PCP - General Family Medicine 10/08/20 04/30/21 Kassy Cool MD [address] [place] [address] [email or web address] PCP - General Family Medicine 05/01/21 01/26/22 Pcp, Unknown PCP - General 01/27/22 03/04/22 Kassy Cool MD [address] [place] [address] [email or web address] PCP - General Family Medicine 04/16/23 Hussein Vasquez MD [address] [place] [address] [address] [place] [address] [email or web address] Assigned Provider 05/04/20 01/06/21 documented as of this encounter Additional Source Comments The information contained in this document represents components of the legal health record. It is not the complete legal health record.[facility]
--- OUTSIDE RECORDS SUMMARY | 2025-06-14 21:32 | XMS_ITS | Encounter Summary ---
Author Organization [facility] Address [address] [place] [address] [place] [address] Phone Care Team Providers Care Cd Mixer Helper Name Role Phone Kassy Cool MD Primary Care Provider + [phone] Encounter Details Date Type Department Care Team (Late st Contact Info) Description 01/02/2024 Procedure Pass [facility], Ct Scan - [address] [address] Social History Tobacco Use Types Packs/Day Years [...] Date of Assessment Author No Risk Indicated 01/02/2024 10:25 AM EDT Nia Osuna RN * [place] Suicide Severity Rating Scale (Screener/Recent Self-Report) Question Answer Date of Assessment Author 1. Wish to be (Past 1 Month) No 01/02/2024 10:25 AM EDT Kwame Dugan RN 2. Non-Specific Active Suicidal Thoughts (Past 1 Month) No 01/02/2024 10:25 AM EDT Kwame Dugan RN 6. Suicidal Behavior (Lifetime) No 01/02/2024 10:25 AM EDT Kwame Dugan RN documented as of this encounter Plan of Treatment Not on file documented as of this encounter Goals Goal Patient Goal Type Associated Problems Recent Progress Patient-Stated? Author Acute Care Plan Acute Care Plan No Raiza Mclain RN Note: 06/19/23: Resides @ [address] [place] [address] ([employer]) Dr. Cool's cell [phone] if needed Previous inpatient detox facilities: [facility] is his preferred detox Formerly homeless Engage in recovery supports General No Carmen Peralta RN Note: Dr. Cool states pt was in a temporary penitentiary run by [facility] in [place] for about 1 month Oct 2020 recently but he eloped from there. It is now closed. She requests that we add to his care plan to direct him to go directly to the penitentiary clinic to see her upon ED if he arrives here on a Friday or , call her either way if he is in the ED [phone]. Also ask pt where he is sleeping currently so she can track him down. documented as of this encounter Visit Diagnoses Not on filedocumented in this encounter Additional Health Concerns Infection Onset Date Last Indicated Resolved Time CoV-Risk 04/01/2024 04/01/2024 04/12/2024 1:21 AM EDT CoV-Risk 04/26/2025 04/26/2025 05/07/2025 1:21 AM EDT documented as of this encounter Care Teams Cd Mixer Helper Relationship Specialty Start Date End Date Kassy Cool MD [address] [place] [address] [email or web address] PCP - General Family Medicine 04/16/23 documented as of this encounter Additional Source Comments The information contained in this document represents components of the legal health record. It is not the complete legal health record.[facility]
--- OUTSIDE RECORDS SUMMARY | 2025-06-14 21:32 | XMS_ITS | Encounter Summary ---
Author Organization [facility] Address [address] [place] [address] [place] [address] Phone Care Team Providers Care Nutritional Services Host Name Role Phone Kiya Valenzuela NP Primary Care Provider Hussein Vasquez MD Unavailable Kiya Valenzuela NP Primary Care Provider Kassy Cool MD Primary Care Provider [phone] Pcp, Unknown Primary Care Provider Unavailabl e Kassy Cool MD Primary Care Provider Encounter Details Date Type Department Care Team (Late st Contact Info) Description 06/24/2020 Procedure Pass [facility], Ct Scan - [address] [address] Social History Tobacco Use Types Packs/Day Years [...] documented as of this encounter Care Teams Nutritional Services Host Relationship Specialty Start Date End Date Kiya Valenzuela NP [address] [place] [address] [email or web address] PCP - General Family Medicine 09/03/19 10/07/20 Kiya Valenzuela NP [address] [place] [address] [email or web address] PCP - General Family Medicine 10/08/20 04/30/21 Kassy Cool MD [address] [place] [address] [email or web address] PCP - General Family Medicine 05/01/21 01/26/22 Pcp, Unknown PCP - General 01/27/22 03/04/22 Kassy Cool MD [address] [place] [address] [email or web address] PCP - General Family Medicine 04/16/23 Hussein Vasquez MD 230 [facility] [address] [place] [address] [email or web address] Insurance Assigned Provider 05/04/20 01/06/21 documented as of this encounter Additional Source Comments The information contained in this document represents components of the legal health record. It is not the complete legal health record.[facility]
--- OUTSIDE RECORDS SUMMARY | 2025-06-14 21:32 | XMS_ITS | Encounter Summary ---
Author Organization [facility] Address [address] [place] [address] [place] [address] Phone Care Team Providers Care Rn International Name Role Phone Kassy Cool MD Primary Care Provider + [phone] Encounter Details Date Type Department Care Team (Late st Contact Info) Description 07/15/2023 Procedure Pass [facility], Ct Scan - [facility] [address] [place] [address] Social History Tobacco Use Types Packs/Day Years [...] Raiza Mclain, RN Note: 06/19/23: Resides @ [address] [place] [address] ([employer]) Dr. Cool's cell [phone] if needed Previous inpatient detox facilities: [facility] is his preferred detox Formerly homeless Engage in recovery supports General Carmen Juan RN Note: Dr. Cool states pt was in a temporary halfway run by [facility] in [place] for about 1 month Oct 2020 recently but he eloped from there. It is now closed. She requests that we add to his care plan to direct him to go directly to the halfway clinic to see her upon ED if he arrives here on a Friday or , call her either way if he is in the ED [phone]. Also ask pt where he is sleeping currently so she can track him down. documented as of this encounter Visit Diagnoses Not on filedocumented in this encounter Additional Health Concerns Infection Onset Date Last Indicated Resolved Time CoV-Risk 04/01/2024 04/01/2024 04/12/2024 1:21 AM EDT CoV-Risk 04/26/2025 04/26/2025 05/07/2025 1:21 AM EDT documented as of this encounter Care Teams Rn International Relationship Specialty Start Date End Date Kassy Cool MD [address] [place] [address] PCP - General Family Medicine 04/16/23 documented as of this encounter Additional Source Comments The information contained in this document represents components of the legal health record. It is not the complete legal health record.[facility]
--- OUTSIDE RECORDS SUMMARY | 2025-06-14 21:32 | XMS_ITS | Encounter Summary ---
Author Organization [facility] Address [address] [place] [address] [place] [address] Phone Care Team Providers Care Theater Technician Name Role Phone Hussein Vasquez MD Unavailable Kiya Valenzuela NP Primary Care Provider Kassy Cool MD Primary Care Provider Pcp, Unknown Primary Care Provider Unavailabl e Kassy Cool MD Primary Care Provider Encounter Details Date Type Department Care Team (Late st Contact Info) Description 10/19/2020 Procedure Pass [facility], Ct Scan - [address] [address] Social History Tobacco Use Types Packs/Day Years [...] Score (Lifetime/Recent) Answer Date of Assessment Author High Risk 10/22/2020 3:57 PM Pippa Cortes, BRICE * [place] Suicide Severity Rating Scale (Screener/Recent Self-Report) Question Answer Date of Assessment Author 1. Wish to be (Past 1 Month) Yes 021 3:57 PM Pippa Cortes RN 2. Non-Specific Active Suici nacho Thoughts (Past 1 Month) Yes 10/22/2020 3:57 PM Elmer Cortes RN 3. Active Suicidal Ideation with any Methods (Not Plan) Without Intent to Act (Past 1 Month) Yes 10/22/2020 3:57 PM Pippa Cortes RN 4. Active Suicidal Ideation with Some Intent to Act, Without Specific Plan (Past 1 Month) Yes 10/22/2020 3:57 PM Pippa Cortes RN 5. Active Suicidal Ideation with Specific Plan and Intent (Past 1 Month) No 10/22/2020 3:57 PM Pippa Cortes RN 6. Suicidal Behavior (Lifetime) No 3:57 PM Pippa Cortes RN documented as of this encounter Plan of Treatment Not on file documented as of this encounter Visit Diagnoses Not on filedocumented in this encounter Additional Health Concerns Infection Onset Date Last Indicated Resolved Time MRSA Comment:Infection Loaded by the Load Infection Utility 01/02/2017 01/02/2017 11/13/2022 1:[address] CoV-Risk 10/12/2020 10/12/2020 10/29/2020 1:23 AM EST CoV-Exposed Comment:Recent close contact documented in the COVID-19 PCR/PRO order 11/06/2020 11/06/2020 11/21/2020 1:[address] CoV-Risk 01/20/2021 01/20/2021 01/30/2021 1:23 AM EDT CoV-Risk 06/19/2023 06/19/2023 06/30/2023 1:22 AM EDT CoV-Risk 04/01/2024 04/01/2024 04/12/2024 1:21 AM EDT CoV-Risk 04/26/2025 04/26/2025 05/07/2025 1:21 AM EDT documented as of this encounter Care Teams Theater Technician Relationship Specialty Start Date End Date Kiya Valenzuela NP [address] [place] [address] [email or web address] PCP - General Family Medicine 10/08/20 04/30/21 Kassy Cool MD [address] [place] [address] [email or web address] PCP - General Family Medicine 05/01/21 01/26/22 Pcp, Unknown PCP - General 01/27/22 03/04/22 Kassy Cool MD [address] [place] [address] [email or web address] PCP - General Family Medicine 04/16/23 Hussein Vasquez MD 230 [facility] [address] [place] [address] [email or web address] Insurance Assigned Provider 05/04/20 01/06/21 documented as of this encounter Additional Source Comments The information contained in this document represents components of the legal health record. It is not the complete legal health record.[facility]
--- OUTSIDE RECORDS SUMMARY | 2025-06-14 21:32 | XMS_ITS | Encounter Summary ---
Author Organization [facility] Address [address] [place] [address] [place] [address] Phone Care Team Providers Care Linseed Oil Refiner Name Role Phone Kassy Cool MD Primary Care Provider + [phone] Encounter Details Date Type Department Care Team (Late st Contact Info) Description 03/22/2024 Procedure Pass [facility], Ct Scan - [address] [address] Social History Tobacco Use Types Packs/Day Years [...] Date of Assessment Author No Risk Indicated 03/22/2024 11:36 PM EDT Silvio beckett, Theresa Morel RN * [place] Suicide Severity Rating Scale (Screener/Recent Self-Report) Question Answer Date of Assessment Author 1. Wish to be (Past 1 Month) No 03/22/2024 11:36 PM EDT Theresa Molina RN 2. Non-Specific Active Suicidal Thoughts (Past 1 Month) No 03/22/2024 11:36 PM EDT Theresa Molina RN 6. Suicidal Behavior (Lifetime) No 03/22/2024 11:36 PM EDT Theresa Molina RN documented as of this encounter Plan of Treatment Not on file documented as of this encounter Goals Goal Patient Goal Type Associated Problems Recent Progress Patient-Stated? Author Acute Care Plan Acute Care Plan No Raiza Mclain RN Note: 06/19/23: Resides @ [address] [place] [address] ([employer]) Dr. Cool's cell [phone] if needed Previous inpatient detox facilities: [facility] is his preferred detox Formerly homeless Engage in recovery supports General No Carmen Peralta RN Note: Dr. Cool states pt was in a temporary correction run by [facility] in [place] for about 1 month Oct 2020 recently but he eloped from there. It is now closed. She requests that we add to his care plan to direct him to go directly to the correction clinic to see her upon ED if he arrives here on a Friday or , call her either way if he is in the ED [phone]. Also ask pt where he is sleeping currently so she can track him down. documented as of this encounter Visit Diagnoses Not on filedocumented in this encounter Additional Health Concerns Infection Onset Date Last Indicated Resolved Time CoV-Risk 04/01/2024 04/01/2024 04/12/2024 1:21 AM EDT CoV-Risk 04/26/2025 04/26/2025 05/07/2025 1:21 AM EDT documented as of this encounter Care Teams Linseed Oil Refiner Relationship Specialty Start Date End Date Kassy Cool MD [address] [place] [address] [email or web address] PCP - General Family Medicine 04/16/23 documented as of this encounter Additional Source Comments The information contained in this document represents components of the legal health record. It is not the complete legal health record.[facility]
--- OUTSIDE RECORDS SUMMARY | 2025-06-14 21:32 | XMS_ITS | Encounter Summary ---
Author Organization [facility] Address [address] [facility] [address] [place] [address] Phone Care Team Providers Care Vineyard Supervisor Name Role Phone Kassy Cool MD Primary Care Provider + [phone] Encounter Details Date Type Department Care Team (Late st Contact Info) Description 04/01/2025 Procedure Pass [facility], Ct Scan - [facility] 30 [place] [address] Social History Tobacco Use Types Packs/Day Years [...] 5:35 PM EDT Arielle Saxena RN * [place] Suicide Severity Rating Scale (Screener/Recent Self-Report) Question Answer Date of Assessment Author 1. Wish to be (Past 1 Month) No 025 5:35 PM EDT Marlene Saxena RN 2. Non-Specific Active Suici nacho Thoughts (Past 1 Month) No 04/01/2025 5:35 PM EDT Marlene Saxena RN 6. Suicidal Behavior (Lifetime) No 5:35 PM EDT Marlene Saxena RN documented as of this encounter Plan of Treatment Not on file documented as of this encounter Goals Goal Patient Goal Type Associated Problems Recent Progress Patient-Stated? Author Acute Care Plan Acute Care Plan No Raiza Mclain, RN Note: 06/19/23: Resides @ [address] [place] [address] ([employer]) Dr. Cool's cell [phone] if needed Previous inpatient detox facilities: [facility] at [facility] is his preferred detox Formerly homeless Engage in recovery supports General No Carmen Peralta, BRICE Note: Dr. Cool states pt was in a temporary longterm run by [facility] in [place] for about 1 month Oct 2020 recently but he eloped from there. It is now closed. She requests that we add to his care plan to direct him to go directly to the longterm clinic to see her upon ED if he arrives here on a Friday or , call her either way if he is in the ED [phone]. Also ask pt where he is sleeping currently so she can track him down. documented as of this encounter Visit Diagnoses Not on filedocumented in this encounter Additional Health Concerns Infection Onset Date Last Indicated Resolved Time CoV-Risk 04/26/2025 04/26/2025 05/07/2025 1:21 AM EDT documented as of this encounter Care Teams Vineyard Supervisor Relationship Specialty Start Date End Date Kassy Cool MD 70 [place] [address] [email or web address] PCP - General Family Medicine 04/16/23 documented as of this encounter Additional Source Comments The information contained in this document represents components of the legal health record. It is not the complete legal health record.[facility]
--- OUTSIDE RECORDS SUMMARY | 2025-06-14 21:32 | XMS_ITS | Encounter Summary ---
Author Organization [facility] Address [address] [facility] [address] [place] [address] Phone Care Team Providers Care Tow Motor Driver Name Role Phone Kassy Cool MD Primary Care Provider + [phone] Encounter Details Date Type Department Care Team (Late st Contact Info) Description 04/01/2024 Procedure Pass [facility], Ct Scan - [facility] 30 [place] [address] Social History Tobacco Use Types Packs/Day Years [...] 10:11 AM EDT Piedad Shields RN * [place] Suicide Severity Rating Scale (Screener/Recent Self-Report) Question [...] Raiza Mclain, RN Note: 06/19/23: Resides @ [address] [place] [address] ([employer]) Dr. Cool's cell [phone] if needed Previous inpatient detox facilities: [facility] is his preferred detox Formerly homeless Engage in recovery supports General No Carmen Peralta, RN Note: Dr. Cool states pt was in a temporary alf run by [facility] in [place] for about 1 month Oct 2020 recently but he eloped from there. It is now closed. She requests that we add to his care plan to direct him to go directly to the alf clinic to see her upon ED if he arrives here on a Friday or , call her either way if he is in the ED [phone]. Also ask pt where he is sleeping currently so she can track him down. documented as of this encounter Visit Diagnoses Not on filedocumented in this encounter Additional Health Concerns Infection Onset Date Last Indicated Resolved Time CoV-Risk 04/01/2024 04/01/2024 04/12/2024 1:21 AM EDT CoV-Risk 04/26/2025 04/26/2025 05/07/2025 1:21 AM EDT documented as of this encounter Care Teams Tow Motor Driver Relationship Specialty Start Date End Date Kassy Cool MD 70 [place] [address] [email or web address] PCP - General Family Medicine 04/16/23 documented as of this encounter Additional Source Comments The information contained in this document represents components of the legal health record. It is not the complete legal health record.[facility]
--- OUTSIDE RECORDS SUMMARY | 2025-06-14 21:32 | XMS_ITS | Encounter Summary ---
Author Organization [facility] Address [address] [place] [address] [place] [address] Phone Care Team Providers Care Assurance Senior Manager Insurance Name Role Phone Kassy Cool MD Primary Care Provider + [phone] Encounter Details Date Type Department Care Team (Late st Contact Info) Description 05/24/2023 Procedure Pass [facility], Ct Scan - [address] [address] Social History Tobacco Use Types Packs/Day Years [...] EDT Janay weinberg, Cathie Atkinson RN * [place] Suicide Severity Rating Scale (Screener/Recent Self-Report) Question [...] Raiza Mclain RN Note: 06/19/23: Resides @ [address] [place] [address] ([employer]) Dr. Cool's cell [phone] if needed Previous inpatient detox facilities: [facility] is his preferred detox Formerly homeless Engage in recovery supports General No Carmen Peralta RN Note: Dr. Cool states pt was in a temporary senior living run by [facility] in [place] for about 1 month Oct 2020 recently but he eloped from there. It is now closed. She requests that we add to his care plan to direct him to go directly to the senior living clinic to see her upon ED if he arrives here on a Friday or , call her either way if he is in the ED [phone]. Also ask pt where he is sleeping [...] documented as of this encounter Care Teams Assurance Senior Manager Insurance Relationship Specialty Start Date End Date Kassy Cool MD 70 [place] [address] [email or web address] PCP - General Family Medicine 04/16/23 documented as of this encounter Additional Source Comments The information contained in this document represents components of the legal health record. It is not the complete legal health record.[facility]
--- OUTSIDE RECORDS SUMMARY | 2025-06-14 21:32 | XMS_ITS | Encounter Summary ---
Author Organization [facility] Address [address] [place] [address] [place] [address] Phone Care Team Providers Care Rn Licensed Practical Name Role Phone Hussein Vasquez MD Unavailable Kiya Valenzuela NP Primary Care Provider Kassy Cool MD Primary Care Provider Pcp, Unknown Primary Care Provider Unavailabl Kassy Whitley MD Primary Care Provider Encounter Details Date Type Department Care Team (Late st Contact Info) Description 10/08/2020 Procedure Pass [facility] 30 [place] [address] Social History Tobacco Use Types Packs/Day Years [...] Date of Assessment Author No Risk Indicated 10/08/2020 10:02 AM Olena Ngo, RN * [place] Suicide Severity Rating Scale (Screener/Recent Self-Report) Question Answer Date of Assessment Author 1. Wish to be (Past 1 Month) No 10/08/2020 10:02 AM Olena Ngo RN 2. Non-Specific Active Suici nacho Thoughts (Past 1 Month) No 10/08/2020 10:02 AM Lupe Ngo RN 6. Suicidal Behavior (Lifetime) No 10:02 AM Olena Ngo RN documented as of this encounter Plan [...] as of this encounter Care Teams Rn Licensed Practical Relationship Specialty Start Date End Date Kiya Valenzuela NP [address] [place] [phone] [email or web address] PCP - General Family Medicine 10/08/20 04/30/21 Kassy Cool MD [address] [place] [address] [email or web address] PCP - General Family Medicine 05/01/21 01/26/22 Pcp, Unknown PCP - General 01/27/22 03/04/22 Kassy Cool MD 70 [place] [address] [email or web address] PCP - General Family Medicine 04/16/23 Hussein Vasquez MD [address] [place] [phone] [email or web address] Insurance Assigned Provider 05/04/20 01/06/21 documented as of this encounter Additional Source Comments The information contained in this document represents components of the legal health record. It is not the complete legal health record.[facility]
--- OUTSIDE RECORDS SUMMARY | 2025-06-14 21:32 | XMS_ITS | Encounter Summary ---
Author Organization [facility] Address [address] [place] [address] [place] [address] Phone Care Team Providers Care Delivery Route Driver Name Role Phone Kassy Cool MD Primary Care Provider + [phone] Encounter Details Date Type Department Care Team (Late st Contact Info) Description 04/16/2023 Procedure Pass [facility], Ct Scan - [facility] 30 [place] [address] Social History Tobacco Use Types Packs/Day Years [...] Date of Assessment Author No Risk Indicated 04/16/2023 9:21 AM EDT Nusrat Smalls, RN * [place] Suicide Severity Rating Scale (Screener/Recent Self-Report) Question Answer Date of Assessment Author 1. Wish to be (Past 1 Month) No 04/16/2023 9:21 AM [place] Nusrat Smalls RN 2. Non-Specific Active Suici nacho Thoughts (Past 1 Month) No 04/16/2023 9:21 AM EDT Rosetta Smalls cia, RN 6. Suicidal Behavior (Lifetime) No 9:21 AM EDT Nusrat Smalls RN documented as of this encounter Plan of Treatment Not on file documented as of this encounter Goals Goal Patient Goal Type Associated Problems Recent Progress Patient-Stated? Author Acute Care Plan Acute Care Plan No Raiza Mclain RN Note: 06/19/23: Resides @ [address] [place] [address] ([employer]) Dr. Cool's cell [phone] if needed Previous inpatient detox facilities: [facility] is his preferred detox Formerly homeless Engage in recovery supports General No Carmen Peralta RN Note: Dr. Cool states pt was in a temporary skilled nursing run by [facility] in [place] for about 1 month Oct 2020 recently but he eloped from there. It is now closed. She requests that we add to his care plan to direct him to go directly to the skilled nursing clinic to see her upon ED if he arrives here on a Friday or , call her either way if he is in the ED [phone]. Also ask pt where he is sleeping [...] documented as of this encounter Care Teams Delivery Route Driver Relationship Specialty Start Date End Date Kassy Cool MD 70 [place] [address] [email or web address] PCP - General Family Medicine 04/16/23 documented as of this encounter Additional Source Comments The information contained in this document represents components of the legal health record. It is not the complete legal health record.[facility]
--- OUTSIDE RECORDS SUMMARY | 2025-06-14 21:32 | XMS_ITS | Encounter Summary ---
Author Organization [facility] Address [address] [facility] [address] [place] [address] Phone Care Team Providers Care Weaver Needle Loom Name Role Phone Kassy Cool MD Primary Care Provider + [phone] Encounter Details Date Type Department Care Team (Late st Contact Info) Description 04/01/2025 Procedure Pass [facility], Ct Scan - [facility] 30 [place] [address] Social History Tobacco Use Types Packs/Day Years [...] 5:35 PM EDT Arielle Saxena RN * [place] Suicide Severity Rating Scale (Screener/Recent Self-Report) Question [...] Raiza Mclain, RN Note: 06/19/23: Resides @ [address] [place] [address] ([employer]) Dr. Cool's cell [phone] if needed Previous inpatient detox facilities: [facility] is his preferred detox Formerly homeless Engage in recovery supports General No Carmen Peralta, BRICE Note: Dr. Cool states pt was in a temporary longterm run by [facility] in [place] for about 1 month Oct 2020 recently but he eloped from there. It is now closed. She requests that we add to his care plan to direct him to go directly to the longterm clinic to see her upon ED if he arrives here on a Friday or , call her either way if he is in the ED [phone]. Also ask pt where he is sleeping currently so she can track him down. documented as of this encounter Visit Diagnoses Not on filedocumented in this encounter Additional Health Concerns Infection Onset Date Last Indicated Resolved Time CoV-Risk 04/26/2025 04/26/2025 05/07/2025 1:21 AM EDT documented as of this encounter Care Teams Weaver Needle Loom Relationship Specialty Start Date End Date Kassy Cool MD 70 [place] [address] [email or web address] PCP - General Family Medicine 04/16/23 documented as of this encounter Additional Source Comments The information contained in this document represents components of the legal health record. It is not the complete legal health record.[facility]
--- OUTSIDE RECORDS SUMMARY | 2025-06-14 21:32 | XMS_ITS | Encounter Summary ---
Author Organization [facility] Address [address] [place] [address] [place] [address] Phone Care Team Providers Care Boiler Shop Supervisor Name Role Phone Kassy Cool MD Primary Care Provider + [phone] Encounter Details Date Type Department Care Team (Late st Contact Info) Description 05/23/2023 Procedure Pass [facility], Ct Scan - [address] [address] Social History Tobacco Use Types Packs/Day Years [...] EDT Janay weinberg, Cathie Atkinson RN * [place] Suicide Severity Rating Scale (Screener/Recent Self-Report) Question [...] Raiza Mclain RN Note: 06/19/23: Resides @ [address] [place] [address] ([employer]) Dr. Cool's cell [phone] if needed Previous inpatient detox facilities: [facility] is his preferred detox Formerly homeless Engage in recovery supports General No Carmen Peralta RN Note: Dr. Cool states pt was in a temporary snf run by [facility] in [place] for about 1 month Oct 2020 recently but he eloped from there. It is now closed. She requests that we add to his care plan to direct him to go directly to the snf clinic to see her upon ED if he arrives here on a Friday or , call her either way if he is in the ED [phone]. Also ask pt where he is sleeping [...] documented as of this encounter Care Teams Boiler Shop Supervisor Relationship Specialty Start Date End Date Kassy Cool MD 70 [place] [address] [email or web address] PCP - General Family Medicine 04/16/23 documented as of this encounter Additional Source Comments The information contained in this document represents components of the legal health record. It is not the complete legal health record.[facility]
--- OUTSIDE RECORDS SUMMARY | 2025-06-14 21:32 | XMS_ITS | Encounter Summary ---
Author Organization [facility] Address [address] [facility] [address] [place] [address] Phone Care Team Providers Care Property And Equipment Clerk Name Role Phone Kassy Cool MD Primary Care Provider + [phone] Encounter Details Date Type Department Care Team (Late st Contact Info) Description 02/26/2025 Procedure Pass [facility], [facility] - [facility] 30 [place] [address] Social History Tobacco Use Types Packs/Day Years [...] buy more. I choose not to answer 02/26/2025 Within the past 6 months the food we bought just didn't last and we didn't have enough money to get more. I choose not to answer 02/26/2025 Residential Stability Answer Date Recor ded What is your housing situation today? I choose n ot to answer 02/26/2025 How many times have you move d in the past 12 months? Zero (I did not move) 02/26/2025 Paying for Meds Answer Date Recorded Do you have trouble paying for medicines? No 02/26/2025 Paying Utility Bills Answer Date Record ed Do you have trouble paying your heating or elect ricity bill? No 02/26/2025 Transportation Answer Date Recorded Has the lack of transportati on kept you from medical appointments or from getting medications? I choose not to answer 02/26/2025 Digital Access Answer Date Recorded No 02/26/2025 No 02/26/2025 Do you have reliable internet access at home? I choose not to answer 02/26/2025 Do you have a device (e.g., phone, tablet, computer) with a working camera? I choose not to answer 02/26/2025 Intimate Partner Violence Answer Date R ecorded Are you denied basic needs s uch as food, clothing, or medical care? No 02/26/2025 In the past 12 months have y ou been in a relationship with a person who hurts, threatens, or tries to control you? No 02/26/2025 Are you denied basic needs s uch as food, clothing, or medical care? No 02/26/2025 In the past 12 months have y ou been in a relationship with a person who hurts, threatens, or tries to control you? No 02/26/2025 Sex and Gender Information Value Date Recorded Sex Assigned at Male 12/21/2017 8:18 PM EDT Legal Sex Male 9:43 PM EDT Gender Identity Male 12/21/2017 8:18 PM EDT Sexual Orientation Straight 01/14/2018 1: 04 AM EDT documented as of this encounter Functional Status * Calculated C-SSRS Risk Score (Lifetime/Recent) Answer Date of Assessment Author No Risk Indicated 02/26/2025 7:20 AM EDT Tracy Enriquez ma RN * [place] Suicide Severity Rating Scale (Screener/Recent Self-Report) Question Answer Date of Assessment Author 1. Wish to be (Past 1 Month) No 025 7:20 AM EDT Rukhsana Enriquez, BRICE 2. Non-Specific Active Suici nacho Thoughts (Past 1 Month) No 02/26/2025 7:20 AM EDT Rukhsana Enriquez, RN 6. Suicidal Behavior (Lifetime) No 7:20 AM EDT Rukhsana Enriquez RN documented as of this encounter Plan of Treatment Not on file documented as of this encounter Goals Goal Patient Goal Type Associated Problems Recent Progress Patient-Stated? Author Acute Care Plan Acute Care Plan No Raiza Mclain, RN Note: 06/19/23: Resides @ [address] [place] [address] ([employer]) Dr. Cool's cell [phone] if needed Previous inpatient detox facilities: [facility] at [facility] is his preferred detox Formerly homeless Engage in recovery supports General No Carmen Peralta, BRICE Note: Dr. Cool states pt was in a temporary usp run by [facility] in [place] for about 1 month Oct 2020 recently but he eloped from there. It is now closed. She requests that we add to his care plan to direct him to go directly to the usp clinic to see her upon ED if he arrives here on a Friday or , call her either way if he is in the ED [phone]. Also ask pt where he is sleeping currently so she can track him down. documented as of this encounter Visit Diagnoses Not on filedocumented in this encounter Additional Health Concerns Infection Onset Date Last Indicated Resolved Time CoV-Risk 04/26/2025 04/26/2025 05/07/2025 1:21 AM EDT documented as of this encounter Care Teams Property And Equipment Clerk Relationship Specialty Start Date End Date Kassy Cool MD [address] [place] [address] [email or web address] PCP - General Family Medicine 04/16/23 documented as of this encounter Additional Source Comments The information contained in this document represents components of the legal health record. It is not the complete legal health record.[facility]
--- OUTSIDE RECORDS SUMMARY | 2025-06-14 21:32 | XMS_ITS | Encounter Summary ---
Author Organization [facility] Address [address] [place] [address] [place] [address] Phone Care Team Providers Care Machine Taper Name Role Phone Kassy Cool MD Primary Care Provider + [phone] Encounter Details Date Type Department Care Team (Late st Contact Info) Description 11/26/2023 Procedure Pass [facility], Ct Scan - [address] [address] Social History Tobacco Use Types Packs/Day Years [...] 11/28/2023 8:09 PM Henny Saldana RN * [place] Suicide Severity Rating Scale (Screener/Recent Self-Report) Question [...] Raiza Mclain RN Note: 06/19/23: Resides @ [address] [place] [address] ([employer]) Dr. Cool's cell [phone] if needed Previous inpatient detox facilities[facility] is his preferred detox Formerly homeless Engage in recovery supports General No Carmen Peralta RN Note: Dr. Cool states pt was in a temporary longterm run by [facility] in [place] for about 1 month Oct 2020 recently but he eloped from there. It is now closed. She requests that we add to his care plan to direct him to go directly to the longterm clinic to see her upon ED if he arrives here on a Friday or , call her either way if he is in the ED [phone]. Also ask pt where he is sleeping currently so she can track him down. documented as of this encounter Visit Diagnoses Not on filedocumented in this encounter Additional Health Concerns Infection Onset Date Last Indicated Resolved Time CoV-Risk 04/01/2024 04/01/2024 04/12/2024 1:21 AM EDT CoV-Risk 04/26/2025 04/26/2025 05/07/2025 1:21 AM EDT documented as of this encounter Care Teams Machine Taper Relationship Specialty Start Date End Date Kassy Cool MD [address] [place] [address] [email or web address] PCP - General Family Medicine 04/16/23 documented as of this encounter Additional Source Comments The information contained in this document represents components of the legal health record. It is not the complete legal health record.[facility]
--- OUTSIDE RECORDS SUMMARY | 2025-06-14 21:32 | XMS_ITS | Encounter Summary ---
Author Organization [facility] Address [address] [place] [address] [place] [address] Phone Care Team Providers Care Administration Intern Name Role Phone Kiya Valenzuela NP Primary Care Provider Hussein Vasquez MD Unavailable Kiya Valenzuela NP Primary Care Provider Kassy Cool MD Primary Care Provider Pcp, Unknown Primary Care Provider Unavailabl e Kassy Cool MD Primary Care Provider Encounter Details Date Type Department Care Team (Late st Contact Info) Description 07/26/2020 Procedure Pass [facility], Ct Scan - [address] [address] Social History Tobacco Use Types Packs/Day Years [...] documented as of this encounter Care Teams Administration Intern Relationship Specialty Start Date End Date Kiya Valenzuela NP [address] [place] [address] [email or web address] PCP - General Family Medicine 09/03/19 10/07/20 Kiya Valenzuela NP [address] [place] [address] [email or web address] PCP - General Family Medicine 10/08/20 04/30/21 Kassy Cool MD [address] [place] [address] [email or web address] PCP - General Family Medicine 05/01/21 01/26/22 Pcp, Unknown PCP - General 01/27/22 03/04/22 Kassy Cool MD [address] [place] [address] [email or web address] PCP - General Family Medicine 04/16/23 Hussein Vasquez MD [address] [facility] [address] [place] [phone] [email or web address] Insurance Assigned Provider 05/04/20 01/06/21 documented as of this encounter Additional Source Comments The information contained in this document represents components of the legal health record. It is not the complete legal health record.[facility]
--- OUTSIDE RECORDS SUMMARY | 2025-06-14 21:32 | XMS_ITS | Encounter Summary ---
Author Organization [facility] Address [address] [place] [address] [place] [address] Phone Care Team Providers Care Tire And Tube Repairer Name Role Phone Kassy Cool MD Primary Care Provider + [phone] Encounter Details Date Type Department Care Team (Late st Contact Info) Description 11/03/2023 Procedure Pass [facility], Ct Scan - [address] [address] Social History Tobacco Use Types Packs/Day Years [...] Date of Assessment Author No Risk Indicated 11/03/2023 7:49 PM Asia Barrett RN * [place] Suicide Severity Rating Scale (Screener/Recent Self-Report) Question Answer Date of Assessment Author 1. Wish to be (Past 1 Month) No 024 7:49 PM Asia Renee RN 2. Non-Specific Active Suici nacho Thoughts (Past 1 Month) No 11/03/2023 7:49 PM Grady Renee RN 6. Suicidal Behavior (Lifetime) No 7:49 PM Asia Renee RN documented as of this encounter Plan of Treatment Not on file documented as of this encounter Goals Goal Patient Goal Type Associated Problems Recent Progress Patient-Stated? Author Acute Care Plan Acute Care Plan No Raiza Mclain RN Note: 06/19/23: Resides @ [address] [place] [address] ([employer]) Dr. Cool's cell [phone] if needed Previous inpatient detox facilities: [facility] is his preferred detox Formerly homeless Engage in recovery supports General No Carmen Peralta RN Note: Dr. Cool states pt was in a temporary custodial run by [facility] in [place] for about 1 month Oct 2020 recently but he eloped from there. It is now closed. She requests that we add to his care plan to direct him to go directly to the custodial clinic to see her upon ED if he arrives here on a Friday or , call her either way if he is in the ED [phone]. Also ask pt where he is sleeping currently so she can track him down. documented as of this encounter Visit Diagnoses Not on filedocumented in this encounter Additional Health Concerns Infection Onset Date Last Indicated Resolved Time CoV-Risk 04/01/2024 04/01/2024 04/12/2024 1:21 AM EDT CoV-Risk 04/26/2025 04/26/2025 05/07/2025 1:21 AM EDT documented as of this encounter Care Teams Tire And Tube Repairer Relationship Specialty Start Date End Date Kassy Cool MD [address] [place] [address] [email or web address] PCP - General Family Medicine 04/16/23 documented as of this encounter Additional Source Comments The information contained in this document represents components of the legal health record. It is not the complete legal health record.[facility]
--- OUTSIDE RECORDS SUMMARY | 2025-06-14 21:32 | XMS_ITS | Encounter Summary ---
Author Organization [facility] Address [address] [place] [address] [place] [address] Phone Care Team Providers Care Postal Support Employee Name Role Phone Kiya Valenzuela SPEED OPERATOR Primary Care Provider Hussein Vasquez MD Unavailable Kiya Valenzuela SPEED OPERATOR Primary Care Provider Kassy Cool MD Primary Care Provider Pcp, Unknown Primary Care Provider Unavailabl e Kassy Cool MD Primary Care Provider Encounter Details Date Type Department Care Team (Late st Contact Info) Description 08/20/2020 Procedure Pass [facility], Ct Scan - [address] [address] Social History Tobacco Use Types Packs/Day Years [...] Indicated 08/23/2020 12:57 PM Patti Sheikh * [place] Suicide Severity Rating Scale (Screener/Recent Self-Report) Question [...] documented as of this encounter Care Teams Postal Support Employee Relationship Specialty Start Date End Date Kiya Valenzuela NP [address] [place] [address] [email or web address] PCP - General Family Medicine 09/03/19 10/07/20 Kiya Valenzuela NP [address] [place] [address] [email or web address] PCP - General Family Medicine 10/08/20 04/30/21 Kassy Cool MD [address] [place] [address] [email or web address] [email or web address] [facility] PCP - General Family Medicine 05/01/21 01/26/22 Pcp, Unknown PCP - General 01/27/22 03/04/22 Kassy Cool MD [address] [place] [address] [email or web address] - [email or web address] PCP - General Family Medicine 04/16/23 Hussein Vasquez MD [address] [place] [address] [address] [place] [address] [email or web address] Assigned Provider 05/04/20 01/06/21 documented as of this encounter Additional Source Comments The information contained in this document represents components of the legal health record. It is not the complete legal health record.[facility]
--- OUTSIDE RECORDS SUMMARY | 2025-06-14 21:32 | XMS_ITS | Encounter Summary ---
Author Organization [facility] Address [address] [facility] [address] [place] [address] Phone Care Team Providers Care Colleter Name Role Phone Kassy Cool MD Primary Care Provider + [phone] Encounter Details Date Type Department Care Team (Late st Contact Info) Description 08/22/2024 Procedure Pass [facility], Ct Scan - [facility] [address] [place] [address] Social History Tobacco Use Types Packs/Day Years [...] Date of Assessment Author No Risk Indicated 08/25/2024 5:10 PM Arielle Danielson RN * [place] Suicide Severity Rating Scale (Screener/Recent Self-Report) Question Answer Date of Assessment Author 1. Wish to be (Past 1 Month) No 08/25/2024 5:10 PM Jean Danielson ph, RN 2. Non-Specific Active Suici nacho Thoughts (Past 1 Month) No 08/25/2024 5:10 PM Jean Danielson RN 6. Suicidal Behavior (Lifetime) No 5:10 PM Jean Danielson RN documented as of this encounter Plan of Treatment Not on file documented as of this encounter Goals Goal Patient Goal Type Associated Problems Recent Progress Patient-Stated? Author Acute Care Plan Acute Care Plan No Riaza Mclain RN Note: 06/19/23: Resides @ [address] [place] [address] ([employer]) Dr. Cool's cell [phone] if needed Previous inpatient detox facilities: [facility] is his preferred detox Formerly homeless Engage in recovery supports General No Carmen Peralta, RN Note: Dr. Cool states pt was in a temporary correction run by [facility] in [place] for about 1 month Oct 2020 recently but he eloped from there. It is now closed. She requests that we add to his care plan to direct him to go directly to the correction clinic to see her upon ED if he arrives here on a Friday or , call her either way if he is in the ED [phone]. Also ask pt where he is sleeping currently so she can track him down. documented as of this encounter Visit Diagnoses Not on filedocumented in this encounter Additional Health Concerns Infection Onset Date Last Indicated Resolved Time CoV-Risk 04/26/2025 04/26/2025 05/07/2025 1:21 AM EDT documented as of this encounter Care Teams Colleter Relationship Specialty Start Date End Date Kassy Cool MD [address] [place] [address] [email or web address] PCP - General Family Medicine 04/16/23 documented as of this encounter Additional Source Comments The information contained in this document represents components of the legal health record. It is not the complete legal health record.[facility]
--- OUTSIDE RECORDS SUMMARY | 2025-06-14 21:32 | XMS_ITS | Encounter Summary ---
Author Organization [facility] Address [address] [place] [address] [place] [address] Phone Care Team Providers Care Family Medicine Resident Name Role Phone Kiya Valenzuela NP Primary Care Provider Hussein Vasquez MD Unavailable Kiya Valenzuela NP Primary Care Provider Kassy Cool MD Primary Care Provider [phone] Pcp, Unknown Primary Care Provider Unavailabl e Kassy Cool MD Primary Care Provider [phone] Encounter Details Date Type Department Care Team (Late st Contact Info) Description 06/24/2020 Procedure Pass [facility], Ct Scan - [address] [address] Social History Tobacco Use Types Packs/Day Years [...] documented as of this encounter Care Teams Family Medicine Resident Relationship Specialty Start Date End Date Kiya Valenzuela NP [address] [place] [address] [email or web address] PCP - General Family Medicine 09/03/19 10/07/20 Kiya Valenzuela NP [address] [place] [address] [email or web address] PCP - General Family Medicine 10/08/20 04/30/21 Kassy Cool MD [address] [place] [address] [email or web address] PCP - General Family Medicine 05/01/21 01/26/22 Pcp, Unknown PCP - General 01/27/22 03/04/22 Kassy Cool MD [address] [place] [address] [email or web address] PCP - General Family Medicine 04/16/23 Hussein Vasquez MD [address] [facility] [address] [place] [address] [email or web address] Insurance Assigned Provider 05/04/20 01/06/21 documented as of this encounter Additional Source Comments The information contained in this document represents components of the legal health record. It is not the complete legal health record.[facility]
--- OUTSIDE RECORDS SUMMARY | 2025-06-14 21:32 | XMS_ITS | Encounter Summary ---
Author Organization [facility] Address [address] [facility] [address] [place] [address] Phone Care Team Providers Care Auto Body Man Name Role Phone Kassy Cool MD Primary Care Provider + [phone] Encounter Details Date Type Department Care Team (Late st Contact Info) Description 08/22/2024 Procedure Pass [facility], Ct Scan - [facility] [address] [place] [address] Social History Tobacco Use Types Packs/Day Years [...] 08/25/2024 5:10 PM Arielle Danielson RN * [place] Suicide Severity Rating Scale (Screener/Recent Self-Report) Question [...] Raiza Mclain RN Note: 06/19/23: Resides @ [address] [place] [address] ([employer]) Dr. Cool's cell [phone] if needed Previous inpatient detox facilities: [facility] is his preferred detox Formerly homeless Engage in recovery supports General No Carmen Peralta, RN Note: Dr. Cool states pt was in a temporary nursing home run by [facility] in [place] for about 1 month Oct 2020 recently but he eloped from there. It is now closed. She requests that we add to his care plan to direct him to go directly to the nursing home clinic to see her upon ED if he arrives here on a Friday or , call her either way if he is in the ED [phone]. Also ask pt where he is sleeping currently so she can track him down. documented as of this encounter Visit Diagnoses Not on filedocumented in this encounter Additional Health Concerns Infection Onset Date Last Indicated Resolved Time CoV-Risk 04/26/2025 04/26/2025 05/07/2025 1:21 AM EDT documented as of this encounter Care Teams Auto Body Man Relationship Specialty Start Date End Date Kassy Cool MD [address] [place] [address] [email or web address] PCP - General Family Medicine 04/16/23 documented as of this encounter Additional Source Comments The information contained in this document represents components of the legal health record. It is not the complete legal health record.[facility]
--- OUTSIDE RECORDS SUMMARY | 2025-06-14 21:32 | XMS_ITS | Encounter Summary ---
Author Organization [facility] Address [address] [place] [address] [place] [address] Phone Care Team Providers Care Subassembly Assembler Name Role Phone Kassy Cool MD Primary Care Provider + [phone] Encounter Details Date Type Department Care Team (Late st Contact Info) Description 04/16/2023 Procedure Pass [facility], Ct Scan - [facility] [address] [place] [address] Social History Tobacco Use Types Packs/Day Years [...] 9:21 AM EDT Nusrat Smalls, RN * [place] Suicide Severity Rating Scale (Screener/Recent Self-Report) Question [...] Raiza Mclain RN Note: 06/19/23: Resides @ [address] [place] [address] ([employer]) Dr. Cool's cell [phone] if needed Previous inpatient detox facilities: [facility] is his preferred detox Formerly homeless Engage in recovery supports General No Carmen Peralta RN Note: Dr. Cool states pt was in a temporary alf run by [facility] in [place] for about 1 month Oct 2020 recently but he eloped from there. It is now closed. She requests that we add to his care plan to direct him to go directly to the alf clinic to see her upon ED if he arrives here on a Friday or , call her either way if he is in the ED [phone]. Also ask pt where he is sleeping [...] documented as of this encounter Care Teams Subassembly Assembler Relationship Specialty Start Date End Date Kassy Cool MD [address] [place] [address] [email or web address] PCP - General Family Medicine 04/16/23 documented as of this encounter Additional Source Comments The information contained in this document represents components of the legal health record. It is not the complete legal health record.[facility]
--- OUTSIDE RECORDS SUMMARY | 2025-06-14 21:32 | XMS_ITS ---
Author Organization [facility] Address [address] [place] [address] Care Team Providers Care Stamp Pad Maker Name Role Phone Jackie Maier Unavailable Unavailable Kassy Cool MD Primary Care Provider [phone] Mel Erazo Unavailable Unavailable [facility] Status:Outreach In Progress (Enrolling) Start date:01/11/2025 Enrollment reason:ADT Feed Case Team Name Relationship Phone Lyndon Garcia(Responsible Staff) [phone] Continued Care and Services Coordination
--- OUTSIDE RECORDS SUMMARY | 2025-06-14 21:32 | XMS_ITS | Encounter Summary ---
Author Organization [facility] Address [address] [facility] [address] [place] [address] Phone Care Team Providers Care Import Coordinator Name Role Phone Kassy Cool MD Primary Care Provider + [phone] Encounter Details Date Type Department Care Team (Late st Contact Info) Description 04/01/2024 Procedure Pass [facility], Ct Scan - [facility] [address] [place] [address] Social History Tobacco Use Types Packs/Day Years [...] 10:11 AM EDT Piedad Shields RN * [place] Suicide Severity Rating Scale (Screener/Recent Self-Report) Question [...] Raiza Mclain, RN Note: 06/19/23: Resides @ [address] [place] [address] (Personally) Dr. Cool's cell [phone] if needed Previous inpatient detox facilities: [facility] is his preferred detox Formerly homeless Engage in recovery supports General No Carmen Peralta, RN Note: Dr. Cool states pt was in a temporary halfway run by [facility] in [place] for about 1 month Oct 2020 recently but he eloped from there. It is now closed. She requests that we add to his care plan to direct him to go directly to the halfway clinic to see her upon ED if he arrives here on a Friday or , call her either way if he is in the ED [phone]. Also ask pt where he is sleeping currently so she can track him down. documented as of this encounter Visit Diagnoses Not on filedocumented in this encounter Additional Health Concerns Infection Onset Date Last Indicated Resolved Time CoV-Risk 04/01/2024 04/01/2024 04/12/2024 1:21 AM EDT CoV-Risk 04/26/2025 04/26/2025 05/07/2025 1:21 AM EDT documented as of this encounter Care Teams Import Coordinator Relationship Specialty Start Date End Date Kassy Cool MD [address] [place] [address] [email or web address] PCP - General Family Medicine 04/16/23 documented as of this encounter Additional Source Comments The information contained in this document represents components of the legal health record. It is not the complete legal health record.[facility]
--- OUTSIDE RECORDS SUMMARY | 2025-06-14 21:32 | XMS_ITS | Encounter Summary ---
Author Organization [facility] Address [address] [facility] [address] [place] [address] Phone Care Team Providers Care Checkout Operator Name Role Phone Kassy Cool MD Primary Care Provider + [phone] Encounter Details Date Type Department Care Team (Late st Contact Info) Description 09/05/2024 Procedure Pass [facility], Ct Scan - [facility] [address] [place] [address] Social History Tobacco Use Types Packs/Day Years [...] computer) with a working camera? Yes 04/04/2024 Intimate Partner Violence Answer Date R ecorded Are you denied basic needs s uch as food, clothing, or medical care? No 09/05/2024 In the past 12 months have y ou been in a relationship with a person who hurts, threatens, or tries to control you? No 09/05/2024 Are you denied basic needs s uch as food, clothing, or medical care? No 09/05/2024 In the past 12 months have y ou been in a relationship with a person who hurts, threatens, or tries to control you? No 09/05/2024 Sex and Gender Information Value Date Recorded Sex Assigned at Male 12/21/2017 8:18 PM EDT Legal Sex Male 9:43 PM EDT Gender Identity Male 12/21/2017 8:18 PM EDT Sexual Orientation Straight 01/14/2018 1: 04 AM EDT documented as of this encounter Functional Status * Calculated C-SSRS Risk Score (Lifetime/Recent) Answer Date of Assessment Author No Risk Indicated 09/05/2024 9:13 PM Cathie Carpenter RN * [place] Suicide Severity Rating Scale (Screener/Recent Self-Report) Question Answer Date of Assessment Author 1. Wish to be (Past 1 Month) No 09/05/2024 9:13 PM Cathie Olivarez RN 2. Non-Specific Active Suicidal Thoughts (Past 1 Month) No 09/05/2024 9:13 PM Cathie Olivarez RN 6. Suicidal Behavior (Lifetime) No 09/05/2024 9:13 PM Cathie Olivarez RN documented as of this encounter Plan of Treatment Not on file documented as of this encounter Goals Goal Patient Goal Type Associated Problems Recent Progress Patient-Stated? Author Acute Care Plan Acute Care Plan No Raiza Mclain, RN Note: 06/19/23: Resides @ [address] [place] [address] ([employer]) Dr. Cool's cell [phone] if needed Previous inpatient detox facilities: [facility] is his preferred detox Formerly homeless Engage in recovery supports General No Carmen Peralta, BRICE Note: Dr. Cool states pt was in a temporary snf run by [facility] in [place] for about 1 month Oct 2020 recently but he eloped from there. It is now closed. She requests that we add to his care plan to direct him to go directly to the snf clinic to see her upon ED if he arrives here on a Friday or , call her either way if he is in the ED [phone]. Also ask pt where he is sleeping currently so she can track him down. documented as of this encounter Visit Diagnoses Not on filedocumented in this encounter Additional Health Concerns Infection Onset Date Last Indicated Resolved Time CoV-Risk 04/26/2025 04/26/2025 05/07/2025 1:21 AM EDT documented as of this encounter Care Teams Checkout Operator Relationship Specialty Start Date End Date Kassy Cool MD [address] [place] [address] [email or web address] PCP - General Family Medicine 04/16/23 documented as of this encounter Additional Source Comments The information contained in this document represents components of the legal health record. It is not the complete legal health record.[facility]
--- OUTSIDE RECORDS SUMMARY | 2025-06-14 21:32 | XMS_ITS | Encounter Summary ---
Author Organization [facility] Address [address] [place] [address] [place] [address] Phone Care Team Providers Care Deburrer Name Role Phone Kassy Cool MD Primary Care Provider + [phone] Encounter Details Date Type Department Care Team (Late st Contact Info) Description 06/14/2023 Procedure Pass [facility], Ct Scan - [address] [address] Social History Tobacco Use Types Packs/Day Years [...] 06/15/2023 6:50 AM EDT Taylor CaputoBRICE * [place] Suicide Severity Rating Scale (Screener/Recent Self-Report) Question [...] Raiza Mclain RN Note: 06/19/23: Resides @ [address] [place] [address] ([employer]) Dr. Cool's cell [phone] if needed Previous inpatient detox facilities: [facility] is his preferred detox Formerly homeless Engage in recovery supports General No Carmen Peralta RN Note: Dr. Cool states pt was in a temporary jail run by [facility] in [place] for about 1 month Oct 2020 recently but he eloped from there. It is now closed. She requests that we add to his care plan to direct him to go directly to the jail clinic to see her upon ED if he arrives here on a Friday or , call her either way if he is in the ED [phone]. Also ask pt where he is sleeping [...] documented as of this encounter Care Teams Deburrer Relationship Specialty Start Date End Date Kassy Cool MD [address] [place] [address] [email or web address] PCP - General Family Medicine 04/16/23 documented as of this encounter Additional Source Comments The information contained in this document represents components of the legal health record. It is not the complete legal health record.[facility]
--- OUTSIDE RECORDS SUMMARY | 2025-06-14 21:32 | XMS_ITS | Encounter Summary ---
Author Organization [facility] Address [address] [facility] [address] [place] [address] Phone Care Team Providers Care Oil Refinery Operator Name Role Phone Kassy Cool MD Primary Care Provider + [phone] Encounter Details Date Type Department Care Team (Late st Contact Info) Description 04/11/2025 Procedure Pass [facility], Ct Scan - [facility] [address] [place] [address] Social History Tobacco Use Types Packs/Day Years [...] buy more. I choose not to answer 04/12/2025 Within the past 6 months the food we bought just didn't last and we didn't have enough money to get more. I choose not to answer 04/12/2025 Residential Stability Answer Date Recor ded What is your housing situation today? I choose n ot to answer 04/12/2025 How many times have you move d in the past 12 months? I choose not to answer 04/12/2025 Paying for Meds Answer Date Recorded Do you have trouble paying for medicines? I carmen se not to answer 04/12/2025 Paying Utility Bills Answer Date Record ed Do you have trouble paying y our heating or electricity bill? I choose not to answer 04/12/2025 Transportation Answer Date Recorded Has the lack of transportati on kept you from medical appointments or from getting medications? I choose not to answer 04/12/2025 Digital Access Answer Date Recorded No 04/12/2025 No 04/12/2025 Do you have reliable internet access at home? I choose not to answer 04/12/2025 Do you have a device (e.g., phone, tablet, computer) with a working camera? I choose not to answer 04/12/2025 Intimate Partner Violence Answer Date R ecorded Are you denied basic needs s uch as food, clothing, or medical care? No 04/15/2025 In the past 12 months have y ou been in a relationship with a person who hurts, threatens, or tries to control you? No 04/15/2025 Are you denied basic needs s uch as food, clothing, or medical care? No 04/15/2025 In the past 12 months have y ou been in a relationship with a person who hurts, threatens, or tries to control you? No 04/15/2025 Sex and Gender Information Value Date Recorded Sex Assigned at Male 12/21/2017 8:18 PM EDT Legal Sex Male 9:43 PM EDT Gender Identity Male 12/21/2017 8:18 PM EDT Sexual Orientation Straight 01/14/2018 1: 04 AM EDT documented as of this encounter Functional Status * Calculated C-SSRS Risk Score (Lifetime/Recent) Answer Date of Assessment Author No Risk Indicated 04/11/2025 4:38 PM EDT Charis Hubbard, BRICE * [place] Suicide Severity Rating Scale (Screener/Recent Self-Report) Question Answer Date of Assessment Author 1. Wish to be (Past 1 Month) No 025 4:38 PM EDT Charis Hubbard, RN 2. Non-Specific Active Suici nacho Thoughts (Past 1 Month) No 04/11/2025 4:38 PM EDT Charis Hubbard , RN 6. Suicidal Behavior (Lifetime) No 4:38 PM EDT Charis Hubbard, RN documented as of this encounter Plan of Treatment Not on file documented as of this encounter Goals Goal Patient Goal Type Associated Problems Recent Progress Patient-Stated? Author Acute Care Plan Acute Care Plan No Raiza Mclain, RN Note: 06/19/23: Resides @ [address] [place] [address] ([employer]) Dr. Cool's cell [phone] if needed Previous inpatient detox facilities: [facility] Unit at [facility] is his preferred detox Formerly homeless Engage in recovery supports General No Carmen Peralta, BRICE Note: Dr. Cool states pt was in a temporary group home run by [facility] in [place] for about 1 month Oct 2020 recently but he eloped from there. It is now closed. She requests that we add to his care plan to direct him to go directly to the group home clinic to see her upon ED if he arrives here on a Friday or , call her either way if he is in the ED [phone]. Also ask pt where he is sleeping currently so she can track him down. documented as of this encounter Visit Diagnoses Not on filedocumented in this encounter Additional Health Concerns Infection Onset Date Last Indicated Resolved Time CoV-Risk 04/26/2025 04/26/2025 05/07/2025 1:21 AM EDT documented as of this encounter Care Teams Oil Refinery Operator Relationship Specialty Start Date End Date Kassy Cool MD [address] [place] [address] [email or web address] PCP - General Family Medicine 04/16/23 documented as of this encounter Additional Source Comments The information contained in this document represents components of the legal health record. It is not the complete legal health record.[facility]
--- OUTSIDE RECORDS SUMMARY | 2025-06-14 21:32 | XMS_ITS | Encounter Summary ---
Author Organization [facility] Address [address] [facility] [address] [place] [address] Phone Care Team Providers Care Crane Crew Supervisor Name Role Phone Kassy Cool MD Primary Care Provider + [phone] Encounter Details Date Type Department Care Team (Late st Contact Info) Description 02/26/2025 Procedure Pass [facility], Ct Scan - [facility] [address] [place] [address] Social History Tobacco Use Types Packs/Day Years [...] AM EDT Tracy Enriquez ma RN * [place] Suicide Severity Rating Scale (Screener/Recent Self-Report) Question [...] Raiza Mclain, RN Note: 06/19/23: Resides @ [address] [place] [address] ([employer]) Dr. Cool's cell [phone] if needed Previous inpatient detox facilities: [facility] Unit at [facility] is his preferred detox Formerly homeless Engage in recovery supports General No Carmen Peralta, BRICE Note: Dr. Cool states pt was in a temporary senior care run by [facility] in [place] for about 1 month Oct 2020 recently but he eloped from there. It is now closed. She requests that we add to his care plan to direct him to go directly to the senior care clinic to see her upon ED if he arrives here on a Friday or , call her either way if he is in the ED [phone]. Also ask pt where he is sleeping currently so she can track him down. documented as of this encounter Visit Diagnoses Not on filedocumented in this encounter Additional Health Concerns Infection Onset Date Last Indicated Resolved Time CoV-Risk 04/26/2025 04/26/2025 05/07/2025 1:21 AM EDT documented as of this encounter Care Teams Crane Crew Supervisor Relationship Specialty Start Date End Date Kassy Cool MD [address] [place] [address] [email or web address] PCP - General Family Medicine 04/16/23 documented as of this encounter Additional Source Comments The information contained in this document represents components of the legal health record. It is not the complete legal health record.[facility]
--- OUTSIDE RECORDS SUMMARY | 2025-06-14 21:32 | XMS_ITS | Encounter Summary ---
Author Organization [facility] Address [address] [place] [address] [place] [address] Phone Care Team Providers Care Junk Dealer Name Role Phone Hussein Vasquez MD Unavailable Kiya Valenzuela NP Primary Care Provider Kassy Cool MD Primary Care Provider Pcp, Unknown Primary Care Provider Unavailabl e Kassy Cool MD Primary Care Provider Encounter Details Date Type Department Care Team (Late st Contact Info) Description 10/19/2020 Procedure Pass [facility], Ct Scan - [address] [address] Social History Tobacco Use Types Packs/Day Years [...] 10/22/2020 3:57 PM Pippa Cortes, BRICE * [place] Suicide Severity Rating Scale (Screener/Recent Self-Report) Question [...] documented as of this encounter Care Teams Junk Dealer Relationship Specialty Start Date End Date Kiya Valenzuela NP [address] [place] [address] [email or web address] PCP - General Family Medicine 10/08/20 04/30/21 Kassy Cool MD [address] [place] [address] [email or web address] PCP - General Family Medicine 05/01/21 01/26/22 Pcp, Unknown PCP - General 01/27/22 03/04/22 Kassy Cool MD [address] [place] [address] [email or web address] PCP - General Family Medicine 04/16/23 Hussein Vasquez MD [address] [facility] [address] [place] [address] [email or web address] Insurance Assigned Provider 05/04/20 01/06/21 documented as of this encounter Additional Source Comments The information contained in this document represents components of the legal health record. It is not the complete legal health record.[facility]
--- OUTSIDE RECORDS SUMMARY | 2025-06-14 21:32 | XMS_ITS | Encounter Summary ---
Author Organization [facility] Address [address] [facility] [address] [place] [address] Phone Care Team Providers Care Thermostat Mechanic Name Role Phone Kassy Cool MD Primary Care Provider + [phone] Encounter Details Date Type Department Care Team (Late st Contact Info) Description 09/05/2024 Procedure Pass [facility], Ct Scan - [facility] [address] [place] [address] Social History Tobacco Use Types Packs/Day Years [...] 09/05/2024 9:13 PM Cathie Carpenter RN * [place] Suicide Severity Rating Scale (Screener/Recent Self-Report) Question [...] Mclain, RN Note: 06/19/23: Resides @ [address] [place] [address] ([employer]) Dr. Cool's cell [phone] if needed Previous inpatient detox facilities: [facility] Unit at [facility] is his preferred detox Formerly homeless Engage in recovery supports General No Carmen Peralta, BRICE Note: Dr. Cool states pt was in a temporary skilled nursing run by [facility] in [place] for about 1 month Oct 2020 recently but he eloped from there. It is now closed. She requests that we add to his care plan to direct him to go directly to the skilled nursing clinic to see her upon ED if he arrives here on a Friday or , call her either way if he is in the ED [phone]. Also ask pt where he is sleeping currently so she can track him down. documented as of this encounter Visit Diagnoses Not on filedocumented in this encounter Additional Health Concerns Infection Onset Date Last Indicated Resolved Time CoV-Risk 04/26/2025 04/26/2025 05/07/2025 1:21 AM EDT documented as of this encounter Care Teams Thermostat Mechanic Relationship Specialty Start Date End Date Kassy Cool MD [address] [place] [address] [email or web address] PCP - General Family Medicine 04/16/23 documented as of this encounter Additional Source Comments The information contained in this document represents components of the legal health record. It is not the complete legal health record.[facility]
--- OUTSIDE RECORDS SUMMARY | 2025-06-14 21:32 | XMS_ITS | Encounter Summary ---
Author Organization [facility] Address [address] [facility] [address] [place] [address] Phone Care Team Providers Care Blueprint Blocker Name Role Phone Kassy Cool MD Primary Care Provider + [phone] Encounter Details Date Type Department Care Team (Late st Contact Info) Description 04/11/2025 Procedure Pass [facility], Ct Scan - [facility] 30 [place] [address] Social History Tobacco Use Types Packs/Day Years [...] 4:38 PM EDT Charis Hubbard, BRICE * [place] Suicide Severity Rating Scale (Screener/Recent Self-Report) Question [...] Mclain, RN Note: 06/19/23: Resides @ [address] [place] [address] ([employer]) Dr. Cool's cell [phone] if needed Previous inpatient detox facilities: [facility] Unit at [facility] is his preferred detox Formerly homeless [employer] in recovery supports General No Carmen Peralta, BRICE Note: Dr. Cool states pt was in a temporary skilled nursing run by [facility] in [place] for about 1 month Oct 2020 recently but he eloped from there. It is now closed. She requests that we add to his care plan to direct him to go directly to the skilled nursing clinic to see her upon ED if he arrives here on a Friday or , call her either way if he is in the ED [phone]. Also ask pt where he is sleeping currently so she can track him down. documented as of this encounter Visit Diagnoses Not on filedocumented in this encounter Additional Health Concerns Infection Onset Date Last Indicated Resolved Time CoV-Risk 04/26/2025 04/26/2025 05/07/2025 1:21 AM EDT documented as of this encounter Care Teams Blueprint Blocker Relationship Specialty Start Date End Date Kassy Cool MD [address] [place] [address] [email or web address] PCP - General Family Medicine 04/16/23 documented as of this encounter Additional Source Comments The information contained in this document represents components of the legal health record. It is not the complete legal health record.[facility]
--- OUTSIDE RECORDS SUMMARY | 2025-06-14 21:32 | XMS_ITS | Encounter Summary ---
Author Organization [facility] Address [address] [place] [address] [place] [address] Phone Care Team Providers Care Brand Designer Name Role Phone Kiya Valenzuela NP Primary Care Provider Hussein Vasquez MD Unavailable Kiya Valenzuela NP Primary Care Provider Kassy Cool MD Primary Care Provider Pcp, Unknown Primary Care Provider Unavailabl e Kassy Cool MD Primary Care Provider Encounter Details Date Type Department Care Team (Late st Contact Info) Description 07/26/2020 Procedure Pass [facility], Ct Scan - [address] [address] Social History Tobacco Use Types Packs/Day Years [...] documented as of this encounter Care Teams Brand Designer Relationship Specialty Start Date End Date Kiya Valenzuela NP [address] [place] [address] [email or web address] PCP - General Family Medicine 09/03/19 10/07/20 Kiya Valenzuela NP [address] [place] [address] [email or web address] PCP - General Family Medicine 10/08/20 04/30/21 Kassy Cool MD 70 [place] [address] [email or web address] PCP - General Family Medicine 05/01/21 01/26/22 Pcp, Unknown PCP - General 01/27/22 03/04/22 Kassy Cool MD [address] [place] [address] [email or web address] PCP - General Family Medicine 04/16/23 Hussein Vasquez MD [address] [facility] [address] [place] [address] [email or web address] Insurance Assigned Provider 05/04/20 01/06/21 documented as of this encounter Additional Source Comments The information contained in this document represents components of the legal health record. It is not the complete legal health record.[facility]
--- OUTSIDE RECORDS SUMMARY | 2025-06-14 21:33 | XMS_ITS | Encounter Summary ---
Author Organization [facility] Address [address] [place] [address] [place] [address] Phone Care Team Providers Care Clipper Operator Name Role Phone Kassy Cool MD Primary Care Provider + [phone] Pcp, Unknown Primary Care Provider Unavailabl e Kassy Cool MD Primary Care Provider + [phone] Encounter Details Date Type Department Care Team (Late st Contact Info) Description 05/01/2021 Procedure Pass [facility], Ct Scan - [address] [address] Social History Tobacco Use Types Packs/Day Years [...] Date of Assessment Author No Risk Indicated 05/01/2021 3:06 PM EDT Ross Gregory RN * [place] Suicide Severity Rating Scale (Screener/Recent Self-Report) Question Answer Date of Assessment Author 1. Wish to be (Past 1 Month) No 021 3:06 PM EDT Courtney Gregory RN 2. Non-Specific Active Suici nacho Thoughts (Past 1 Month) No 05/01/2021 3:06 PM EDT Courtney Gregory RN 3. Active Suicidal Ideation with any Methods (Not Plan) Without Intent to Act (Past 1 Month) Yes 05/01/2021 10:17 AM EDT Shira Fernandez RN 4. Active Suicidal Ideation with Some Intent to Act, Without Specific Plan (Past 1 Month) Yes 05/01/2021 10:17 AM EDT Shira Fernandez RN 5. Active Suicidal Ideation with Specific Plan and Intent (Past 1 Month) Yes 05/01/2021 10:17 AM EDT Shira Bryson RN 6. Suicidal Behavior (Lifetime) No 10:17 AM GERBERT Shira Bryson RN documented as of this encounter Plan of Treatment Not on file documented as of this encounter Goals Goal Patient Goal Type Associated Problems Recent Progress Patient-Stated? Author Acute Care Plan Acute Care Plan No Raiza Mclain RN Note: 06/19/23: Resides @ [address] [place] [address] ([employer]) Dr. Cool's cell [phone] if needed Previous inpatient detox facilities: [facility] is his preferred detox Formerly homeless Engage in recovery supports General No Carmen Peralta, BRICE Note: Dr. Cool states pt was in a temporary nursing home run by [facility] in [place] for about 1 month Oct 2020 recently but he eloped from there. It is now closed. She requests that we add to his care plan to direct him to go directly to the nursing home clinic to see her upon ED if he arrives here on a Friday or , call her either way if he is in the ED [phone]. Also ask pt where he is sleeping [...] documented as of this encounter Care Teams Clipper Operator Relationship Specialty Start Date End Date Kassy Cool MD [address] [place] [address] [email or web address] PCP - General Family Medicine 05/01/21 01/26/22 Pcp, Unknown PCP - General 01/27/22 03/04/22 Kassy Cool MD [address] [place] [address] PCP - General Family Medicine 04/16/23 documented as of this encounter Additional Source Comments The information contained in this document represents components of the legal health record. It is not the complete legal health record.[facility]
--- OUTSIDE RECORDS SUMMARY | 2025-06-14 21:33 | XMS_ITS | Encounter Summary ---
Author Organization [facility] Address [address] [place] [address] [place] [address] Phone Care Team Providers Care Colorer Name Role Phone Kassy Cool MD Primary Care Provider + [phone] Pcp, Unknown Primary Care Provider Unavailabl e Kassy Cool MD Primary Care Provider + [phone] Encounter Details Date Type Department Care Team (Late st Contact Info) Description 06/06/2021 Procedure Pass [facility], Ct Scan - [address] [address] Social History Tobacco Use Types Packs/Day Years [...] Date of Assessment Author No Risk Indicated 06/07/2021 6:00 AM EDT Vikash Patterson RN * [place] Suicide Severity Rating Scale (Screener/Recent Self-Report) Question Answer Date of Assessment Author 1. Wish to be (Past 1 Month) No 06/07/2021 6:00 AM EDT Modesto Langston RN 2. Non-Specific Active Suicidal Thoughts (Past 1 Month) No 06/07/2021 6:00 AM EDT Modesto Langston, BRICE 6. Suicidal Behavior (Lifetime) No 06/07/2021 6:00 AM EDT Modesto Langston RN documented as of this encounter Plan of Treatment Not on file documented as of this encounter Goals Goal Patient Goal Type Associated Problems Recent Progress Patient-Stated? Author Acute Care Plan Acute Care Plan No Raiza Mclain RN Note: 06/19/23: Resides @ [address] [place] [address] ([email or web address]) Dr. Cool's cell [phone] if needed Previous inpatient detox facilities: [facility] Unit at [facility] is his preferred detox Formerly homeless Engage in recovery supports General No Carmen Peralta, BRICE Note: Dr. Cool states pt was in a temporary care home run by [facility] in [place] for about 1 month Oct 2020 recently but he eloped from there. It is now closed. She requests that we add to his care plan to direct him to go directly to the care home clinic to see her upon ED if he arrives here on a Friday or , call her either way if he is in the ED [phone]. Also ask pt where he is sleeping [...] documented as of this encounter Care Teams Colorer Relationship Specialty Start Date End Date Kassy Cool MD [address] [place] [address] [email or web address] PCP - General Family Medicine 05/01/21 01/26/22 Pcp, Unknown PCP - General 01/27/22 03/04/22 Kassy Cool MD [address] [place] [address] [email or web address] PCP - General Family Medicine 04/16/23 documented as of this encounter Additional Source Comments The information contained in this document represents components of the legal health record. It is not the complete legal health record.[facility]
--- OUTSIDE RECORDS SUMMARY | 2025-06-14 21:33 | XMS_ITS | Encounter Summary ---
Author Organization [facility] Address [address] [place] [address] [place] [address] Phone Care Team Providers Care University Tutor Name Role Phone Kassy Cool MD Primary Care Provider + [phone] Pcp, Unknown Primary Care Provider Unavailabl e Kassy Cool MD Primary Care Provider + [phone] Encounter Details Date Type Department Care Team (Late st Contact Info) Description 06/28/2021 Procedure Pass [facility], Ct Scan - [address] [address] Social History Tobacco Use Types Packs/Day Years [...] Date of Assessment Author No Risk Indicated 07/01/2021 8:37 PM EDT Lukas Lipscomb, BRICE * [place] Suicide Severity Rating Scale (Screener/Recent Self-Report) Question Answer Date of Assessment Author 1. Wish to be (Past 1 Month) No 021 8:37 PM EDT Lukas Lipscomb, RN 2. Non-Specific Active Suici nahco Thoughts (Past 1 Month) No 07/01/2021 8:37 PM EDT Randolph Lipscomb, RN 6. Suicidal Behavior (Lifetime) No 8:37 PM EDT Lukas Lipscomb, RN documented as of this encounter Plan of Treatment Not on file documented as of this encounter Goals Goal Patient Goal Type Associated Problems Recent Progress Patient-Stated? Author Acute Care Plan Acute Care Plan No Raiza Mclain, RN Note: 06/19/23: Resides @ [address] [place] [address] ([employer]) Dr. Cool's cell [phone] if needed Previous inpatient detox facilities: [facility] Unit at [facility] is his preferred detox Formerly homeless Engage in recovery supports General No Carmen Peralta, BRICE Note: Dr. Cool states pt was in a temporary senior care run by [facility] in [place] for about 1 month Oct 2020 recently but he eloped from there. It is now closed. She requests that we add to his care plan to direct him to go directly to the senior care clinic to see her upon ED if he arrives here on a Friday or , call her either way if he is in the ED [phone]. Also ask pt where he is sleeping [...] documented as of this encounter Care Teams University Tutor Relationship Specialty Start Date End Date Kassy Cool MD [address] [place] [address] PCP - General Family Medicine 05/01/21 01/26/22 Pcp, Unknown PCP - General 01/27/22 03/04/22 Kassy Cool MD [address] [place] [address] [email or web address] PCP - General Family Medicine 04/16/23 documented as of this encounter Additional Source Comments The information contained in this document represents components of the legal health record. It is not the complete legal health record.[facility]
--- OUTSIDE RECORDS SUMMARY | 2025-06-14 21:33 | XMS_ITS | Encounter Summary ---
Author Organization [employer] Address 75 [facility] 7 [place] [address] Care Team Providers Care Radio Talk Show Host Name Role Phone DarrionJackie harper Unavailable Unavailable Kassy Cool MD Primary Care Provider [phone] Mel Erazo Unavailable Unavailable Constance Lozada Unavailable Encounter Details Date Type Department Care Team (Late st Contact Info) Description 07/01/2024 Orders Only [facility] [address] [place] [address] Kassy Cool MD 70 [place] [address] Social History Tobacco Use Types Packs/Day Years [...] Associated Diagnosis Comments BASIC METABOLIC PANEL Routine 06/26/2024 2:11 PM EDT documented in this encounter Results * Basic Metabolic Panel (06/26/2024 2:11 PM EDT) Blood Venous blood specimen / Unknown us Kassy Cool MD LAB BLOOD ORDERABLES Final Res ult documented in this encounter Visit Diagnoses Not on filedocumented in this encounter Care Teams Radio Talk Show Host Relationship Specialty Start Date End Date Kassy Cool MD [address] [place] [address] PCP - General Family Medicine 10/09/22 Jackie Maier Health Navigator Case Management 10/09/22 Mel Erazo Community Health Worker Case Management 10/30/22 Constance Lozada 02/24/25 04/29/25 documented as of this encounter
--- OUTSIDE RECORDS SUMMARY | 2025-06-14 21:33 | XMS_ITS | Encounter Summary ---
Author Organization [employer] Address 75 [facility] 7 [place] [address] Care Team Providers Care Hogshead Mat Assembler Name Role Phone DarrionJackie harper Unavailable Unavailable Kassy Cool MD Primary Care Provider [phone] Mel Erazo Unavailable Unavailable Constance Lozada Unavailable Encounter Details Date Type Department Care Team (Late st Contact Info) Description 01/02/2024 Orders Only [facility] Information Management [address] [place] [address] Kassy Cool MD 70 [place] [address] Social History Tobacco Use Types Packs/Day Years [...] Procedure Name Priority Date/Time Associated Diagnosis Comments LACTIC ACID Routine 01/02/2024 12:58 PM EDT documented in this encounter Results * Lactic Acid (01/02/2024 12:58 PM EDT) Blood Venous blood specimen / Unknown us Kassy Cool MD LAB BLOOD ORDERABLES Final Res ult documented in this encounter Visit Diagnoses Not on filedocumented in this encounter Care Teams Hogshead Mat Assembler Relationship Specialty Start Date End Date Kassy Cool MD [address] [place] [address] PCP - General Family Medicine 10/09/22 Jackie Maier Health Navigator Case Management 10/09/22 Mel Erazo Community Health Worker Case Management 10/30/22 Constance Lozada 02/24/25 04/29/25 documented as of this encounter
--- OUTSIDE RECORDS SUMMARY | 2025-06-14 21:33 | XMS_ITS | Encounter Summary ---
Author Organization [facility] Address [address] [facility] [address] [place] [address] Phone Care Team Providers Care Learning And Development Analyst Name Role Phone Kassy Cool MD Primary Care Provider + [phone] Encounter Details Date Type Department Care Team (Late st Contact Info) Description 03/03/2025 Procedure Pass [facility], Ct Scan - [facility] [address] [place] [address] Social History Tobacco Use Types Packs/Day Years [...] uch as food, clothing, or medical care? Deferred 03/04/2025 In the past 12 months have y ou been in a relationship with a person who hurts, threatens, or tries to control you? Deferred 03/04/2025 Are you denied basic needs s uch as food, clothing, or medical care? Deferred 03/04/2025 In the past 12 months have y ou been in a relationship with a person who hurts, threatens, or tries to control you? Deferred 03/04/2025 Sex and Gender Information Value Date Recorded Sex Assigned at Male 12/21/2017 8:18 PM EDT Legal Sex Male 9:43 PM EDT Gender Identity Male 12/21/2017 8:18 PM EDT Sexual Orientation Straight 01/14/2018 1: 04 AM EDT documented as of this encounter Functional Status * Calculated C-SSRS Risk Score (Lifetime/Recent) Answer Date of Assessment Author No Risk Indicated 03/04/2025 2:33 PM EDT Lamont Parkinson RN * [place] Suicide Severity Rating Scale (Screener/Recent Self-Report) Question Answer Date of Assessment Author 1. Wish to be (Past 1 Month) No 025 2:33 PM EDT Sidney Parkinson RN 2. Non-Specific Active Suici nacho Thoughts (Past 1 Month) No 03/04/2025 2:33 PM EDT Sidney Parkinson, BRICE 6. Suicidal Behavior (Lifetime) No 2:33 PM EDT Sidney Parkinson, BRICE documented as of this encounter Plan of Treatment Not on file documented as of this encounter Goals Goal Patient Goal Type Associated Problems Recent Progress Patient-Stated? Author Acute Care Plan Acute Care Plan No Raiza Mclain, RN Note: 06/19/23: Resides @ [address] [place] [address] ([employer]) Dr. Cool's cell [phone] if needed Previous inpatient detox facilities: [facility] Unit at [facility] is his preferred detox Formerly homeless [employer] in recovery supports General No Carmen Peralta, RN Note: Dr. Cool states pt was in a temporary detention run by [facility] in [place] for about 1 month Oct 2020 recently but he eloped from there. It is now closed. She requests that we add to his care plan to direct him to go directly to the detention clinic to see her upon ED if he arrives here on a Friday or , call her either way if he is in the ED [phone]. Also ask pt where he is sleeping currently so she can track him down. documented as of this encounter Visit Diagnoses Not on filedocumented in this encounter Additional Health Concerns Infection Onset Date Last Indicated Resolved Time CoV-Risk 04/26/2025 04/26/2025 05/07/2025 1:21 AM EDT documented as of this encounter Care Teams Learning And Development Analyst Relationship Specialty Start Date End Date Kassy Cool MD [address] [place] [address] [email or web address] PCP - General Family Medicine 04/16/23 documented as of this encounter Additional Source Comments The information contained in this document represents components of the legal health record. It is not the complete legal health record.[facility]
--- OUTSIDE RECORDS SUMMARY | 2025-06-14 21:33 | XMS_ITS | Encounter Summary ---
Author Organization [employer] Address 75 [facility] 7 [place] [address] Care Team Providers Care Ortho Tech Name Role Phone Jackie Maier Unavailable Unavailable Kassy Cool MD Primary Care Provider [phone] Mel Erazo Unavailable Unavailable Constance Lozada Unavailable Encounter Details Date Type Department Care Team (Late st Contact Info) Description 10/07/2023 Orders Only [facility] Information Management [address] [place] [address] Kassy Cool MD [address] [place] [address] Social History Tobacco Use Types Packs/Day Years [...] Associated Diagnosis Comments BASIC METABOLIC PANEL Routine 10/06/2023 documented in this encounter Results * Basic Metabolic Panel (10/06/2023) Blood Venous blood specimen / Unknown Kassy Cool MD LAB BLOOD ORDERABLES Edited Re sult - Final documented in this encounter Visit Diagnoses Not on filedocumented in this encounter Care Teams Ortho Tech Relationship Specialty Start Date End Date Kassy Cool MD [address] [place] [address] PCP - General Family Medicine 10/09/22 Jackie Maier Health Navigator Case Management 10/09/22 Mel Erazo Community Health Worker Case Management 10/30/22 Constance Lozada 02/24/25 04/29/25 documented as of this encounter
--- OUTSIDE RECORDS SUMMARY | 2025-06-14 21:33 | XMS_ITS | Encounter Summary ---
Author Organization [facility] Address [address] [place] [address] [place] [address] Phone Care Team Providers Care Roll Coating Machine Operator Name Role Phone Kassy Cool MD Primary Care Provider + [phone] Pcp, Unknown Primary Care Provider Unavailabl e Kassy Cool MD Primary Care Provider + [phone] Encounter Details Date Type Department Care Team (Late st Contact Info) Description 05/30/2021 Procedure Pass [facility], Ct Scan - [address] [address] Social History Tobacco Use Types Packs/Day Years [...] Date of Assessment Author No Risk Indicated 05/30/2021 7:47 PM EDT Lukas Lipscomb, BRICE * [place] Suicide Severity Rating Scale (Screener/Recent Self-Report) Question Answer Date of Assessment Author 1. Wish to be (Past 1 Month) No 021 7:47 PM EDT Lukas Lipscomb, RN 2. Non-Specific Active Suici nacho Thoughts (Past 1 Month) No 05/30/2021 7:47 PM EDT Randolph Lipscomb, RN 6. Suicidal Behavior (Lifetime) No 7:47 PM EDT Lukas Lipscomb, RN documented as of this encounter Plan of Treatment Not on file documented as of this encounter Goals Goal Patient Goal Type Associated Problems Recent Progress Patient-Stated? Author Acute Care Plan Acute Care Plan No Raiza Mclain, RN Note: 06/19/23: Resides @ [address] [place] [address] ([employer]) Dr. Cool's cell [phone] if needed Previous inpatient detox facilities: [facility] Unit at [facility] is his preferred detox Formerly homeless [employer] in recovery supports General No Carmen Peralta, BRICE Note: Dr. Cool states pt was in a temporary intermediate run by [facility] in [place] for about 1 month Oct 2020 recently but he eloped from there. It is now closed. She requests that we add to his care plan to direct him to go directly to the intermediate clinic to see her upon ED if he arrives here on a Friday or , call her either way if he is in the ED [phone]. Also ask pt where he is sleeping currently so she can track him down. documented as of this encounter Visit Diagnoses Not on filedocumented in this encounter Additional Health Concerns Infection Onset Date Last Indicated Resolved Time MRSA Comment:Infection Loaded by the Load Infection Utility 01/02/2017 01/02/2017 11/13/2022 1:41 AM EST CoV-Risk 06/19/2023 06/19/2023 06/30/2023 1:22 AM EDT CoV-Risk 04/01/2024 04/01/2024 04/12/2024 1:21 AM EDT CoV-Risk 04/26/2025 04/26/2025 05/07/2025 1:21 AM EDT documented as of this encounter Care Teams Roll Coating Machine Operator Relationship Specialty Start Date End Date Kassy Cool MD [address] [place] [address] PCP - General Family Medicine 05/01/21 01/26/22 Pcp, Unknown PCP - General 01/27/22 03/04/22 Kassy Cool MD [address] [place] [address] [email or web address] PCP - General Family Medicine 04/16/23 documented as of this encounter Additional Source Comments The information contained in this document represents components of the legal health record. It is not the complete legal health record.[facility]
--- OUTSIDE RECORDS SUMMARY | 2025-06-14 21:33 | XMS_ITS | Encounter Summary ---
Author Organization [employer] Address 75 [facility] 7 [place] [address] Care Team Providers Care Gun Striper Name Role Phone DarrionJackie harper Unavailable Unavailable Kassy Cool MD Primary Care Provider [phone] Mel Erazo Unavailable Unavailable Constance Lozada Unavailable Encounter Details Date Type Department Care Team (Late st Contact Info) Description 01/04/2024 Orders Only [facility] [address] [place] [address] Kassy Cool MD [address] [place] [address] Social History Tobacco Use Types Packs/Day Years [...] Procedure Name Priority Date/Time Associated Diagnosis Comments CBC WITH AUTO DIFFERENTIAL Routine 01/02/2024 10:00 AM EDT documented in this encounter Results * CBC auto differential (01/02/2024 10:00 AM EDT) Blood Venous blood specimen / Unknown us Kassy Cool MD LAB BLOOD ORDERABLES Final Res ult documented in this encounter Visit Diagnoses Not on filedocumented in this encounter Care Teams Gun Striper Relationship Specialty Start Date End Date Kassy Cool MD [address] [place] [address] PCP - General Family Medicine 10/09/22 Jackie Maier Health Navigator Case Management 10/09/22 Mel Erazo Community Health Worker Case Management 10/30/22 Constance Lozada 02/24/25 04/29/25 documented as of this encounter
--- OUTSIDE RECORDS SUMMARY | 2025-06-14 21:33 | XMS_ITS | Encounter Summary ---
Author Organization [employer] Address 75 [facility] 7 [place] [address] Care Team Providers Care Anesthesiology Faculty Name Role Phone Darrion Jackie Unavailable Unavailable Kassy Cool MD Primary Care Provider [phone] Mel Erazo Unavailable Unavailable Constance Lozada Unavailable Encounter Details Date Type Department Care Team (Late st Contact Info) Description 10/23/2022 Orders Only [facility] MEDICAL [address] [place] [address] Provider, MD Brandon Social History Tobacco Use [...] Don't know 10/04/2022 10 :35 AM EST COVID-19 Exposure Response Date Recorded In the last 10 days, have yo u been in contact with someone who was confirmed or suspected to have Coronavirus/COVID-19? No / Unsure 10/09/2022 9:28 AM EST documented as of this encounter Plan of Treatment Not on file documented as of this encounter Procedures Procedure Name Priority Date/Time Associated Diagnosis Comments TOXICOLOGY SCREEN, URINE Routine 10/22/2022 CBC AND DIFFERENTIAL - WAM A ND NON-WAM Routine 10/22/2022 MAGNESIUM Routine 10/22/2022 LIPASE Routine 10/22/2022 ALCOHOL, ETHYL, BLOOD Routine 10/22/2022 HEPATIC FUNCTION PANEL Routine 10/22/2022 BASIC METABOLIC PANEL Routine 10/22/2022 documented in this encounter Results * Toxicology screen, urine (10/22/2022) Urine Urine specimen obtained by clean catch procedure / Unknown Result [facility] Provider MD LAB URINE ORDERABLES Fiorella l Result * Magnesium (10/22/2022) Blood Venous blood specimen / Unknown Result [facility] Provider MD LAB BLOOD ORDERABLES Fiorella l Result * Hepatic Function Panel (10/22/2022) Blood Venous blood specimen / Unknown Result [facility] Provider MD LAB BLOOD ORDERABLES Fiorella l Result * Lipase (10/22/2022) Blood Venous blood specimen / Unknown Result [facility] MD LAB BLOOD ORDERABLES Fiorella l Result * Basic Metabolic Panel (10/22/2022) Blood Venous blood specimen / Unknown Result [facility] MD LAB BLOOD ORDERABLES Fiorella l Result * CBC and differential (10/22/2022) Blood Venous blood specimen / Unknown Result [facility] MD LAB BLOOD ORDERABLES Fiorella l Result * Alcohol, Ethyl (10/22/2022) Blood Venous blood specimen / Unknown Result [facility] MD LAB BLOOD ORDERABLES Fiorella l Result documented in this encounter Visit Diagnoses Not on filedocumented in this encounter Care Teams Anesthesiology Faculty Relationship Specialty Start Date End Date Kassy Cool MD [address] [place] [address] PCP - General Family Medicine 10/09/22 Jackie Maier Health Navigator Case Management 10/09/22 Mel Erazo Community Health Worker Case Management 10/30/22 Constance Lozada 02/24/25 04/29/25 documented as of this encounter
--- OUTSIDE RECORDS SUMMARY | 2025-06-14 21:33 | XMS_ITS | Encounter Summary ---
Author Organization [facility] Address [address] [place] [address] [place] [address] Phone Care Team Providers Care Executive Advisor Name Role Phone Kassy Cool MD Primary Care Provider + [phone] Pcp, Unknown Primary Care Provider Unavailabl e Kassy Cool MD Primary Care Provider + [phone] Encounter Details Date Type Department Care Team (Late st Contact Info) Description 06/12/2021 Procedure Pass [facility], Ct Scan - [address] [address] Social History Tobacco Use Types Packs/Day Years [...] Date of Assessment Author No Risk Indicated 06/12/2021 6:44 PM EDT Yuko Corbin RN * [place] Suicide Severity Rating Scale (Screener/Recent Self-Report) Question Answer Date of Assessment Author 1. Wish to be (Past 1 Month) No 021 6:44 PM EDT Yuko Corbin RN 2. Non-Specific Active Suici nacho Thoughts (Past 1 Month) No 06/12/2021 6:44 PM EDT Yuko Corbin , BRICE 6. Suicidal Behavior (Lifetime) No 6:44 PM EDT Yuko Corbin RN documented as of this encounter Plan of Treatment Not on file documented as of this encounter Goals Goal Patient Goal Type Associated Problems Recent Progress Patient-Stated? Author Acute Care Plan Acute Care Plan No Raiza Mclain RN Note: 06/19/23: Resides @ [address] [place] [address] ([employer]) Dr. Cool's cell [phone] if needed Previous inpatient detox facilities: R[facility] Unit at [facility] is his preferred detox Formerly homeless [employer] in recovery supports General No Carmen Peralta, BRICE Note: Dr. Cool states pt was in a temporary residential run by [facility] in [place] for about 1 month Oct 2020 recently but he eloped from there. It is now closed. She requests that we add to his care plan to direct him to go directly to the residential clinic to see her upon ED if he arrives here on a Friday or , call her either way if he is in the ED [phone]. Also ask pt where he is sleeping [...] documented as of this encounter Care Teams Executive Advisor Relationship Specialty Start Date End Date Kassy Cool MD [address] [place] [address] PCP - General Family Medicine 05/01/21 01/26/22 Pcp, Unknown PCP - General 01/27/22 03/04/22 Kassy Cool MD [address] [place] [address] [email or web address] PCP - General Family Medicine 04/16/23 documented as of this encounter Additional Source Comments The information contained in this document represents components of the legal health record. It is not the complete legal health record.[facility]
--- OUTSIDE RECORDS SUMMARY | 2025-06-14 21:33 | XMS_ITS | Encounter Summary ---
Author Organization [facility] Address [address] [place] [address] [place] [address] Phone Care Team Providers Care Dat Instructor Name Role Phone Kassy Cool MD Primary Care Provider + [phone] Pcp, Unknown Primary Care Provider Unavailabl e Kassy Cool MD Primary Care Provider + [phone] Encounter Details Date Type Department Care Team (Late st Contact Info) Description 06/12/2021 Procedure Pass [facility], Ct Scan - [address] [address] Social History Tobacco Use Types Packs/Day Years [...] 6:44 PM EDT Yuko Corbin RN * [place] Suicide Severity Rating Scale (Screener/Recent Self-Report) Question [...] Raiza Mclain RN Note: 06/19/23: Resides @ [address] [place] [address] ([employer]) Dr. Cool's cell [phone] if needed Previous inpatient detox facilities: R[facility] Unit at [facility] is his preferred detox Formerly homeless Eng[employer] in recovery supports General No Carmen Peralta, BRICE Note: Dr. Cool states pt was in a temporary long-term run by [facility] in [place] for about 1 month Oct 2020 recently but he eloped from there. It is now closed. She requests that we add to his care plan to direct him to go directly to the long-term clinic to see her upon ED if he arrives here on a Friday or , call her either way if he is in the ED [phone]. Also ask pt where he is sleeping [...] documented as of this encounter Care Teams Dat Instructor Relationship Specialty Start Date End Date Kassy Cool MD [address] [place] [address] [email or web address] PCP - General Family Medicine 05/01/21 01/26/22 Pcp, Unknown PCP - General 01/27/22 03/04/22 Kassy Cool MD [address] [place] [address] [email or web address] PCP - General Family Medicine 04/16/23 documented as of this encounter Additional Source Comments The information contained in this document represents components of the legal health record. It is not the complete legal health record.[facility]
--- OUTSIDE RECORDS SUMMARY | 2025-06-14 21:33 | XMS_ITS | Encounter Summary ---
Author Organization [facility] Address [address] [place] [address] [place] [address] Phone Care Team Providers Care Sewing Machine Operator Semiautomatic Name Role Phone Kiya Valenzuela NP Primary Care Provider Kassy Cool MD Primary Care Provider Pcp, Unknown Primary Care Provider Unavailabl e Kassy Cool MD Primary Care Provider Encounter Details Date Type Department Care Team (Late st Contact Info) Description 04/27/2021 Procedure Pass [facility], Ct Scan - [address] [address] Social History Tobacco Use Types Packs/Day Years [...] Raiza Mclain, RN Note: 06/19/23: Resides @ [address] [place] [address] ([employer]) Dr. Cool's cell [phone] if needed Previous inpatient detox facilities: R[facility] Unit at [facility] is his preferred detox Formerly homeless [facility] in recovery supports General Carmen Juan RN Note: Dr. Cool states pt was in a temporary jail run by [facility] in [place] for about 1 month Oct 2020 recently but he eloped from there. It is now closed. She requests that we add to his care plan to direct him to go directly to the jail clinic to see her upon ED if he arrives here on a Friday or , call her either way if he is in the ED [phone]. Also ask pt where he is sleeping [...] documented as of this encounter Care Teams Sewing Machine Operator Semiautomatic Relationship Specialty Start Date End Date Kiya Valenzuela NP [address] [place] [address] [email or web address] PCP - General Family Medicine 10/08/20 04/30/21 Kassy Cool MD [address] [place] [address] PCP - General Family Medicine 05/01/21 01/26/22 Pcp, Unknown PCP - General 01/27/22 03/04/22 Kassy Cool MD [address] [place] [address] [email or web address] PCP - General Family Medicine 04/16/23 documented as of this encounter Additional Source Comments The information contained in this document represents components of the legal health record. It is not the complete legal health record.[facility]
--- OUTSIDE RECORDS SUMMARY | 2025-06-14 21:33 | XMS_ITS | Encounter Summary ---
Author Organization [employer] Address [address] [address] Care Team Providers Care Photogrammetric Surveyor Name Role Phone Jackie Maier Unavailable Unavailable Kassy Cool MD Primary Care Provider [phone] Mel Erazo Unavailable Unavailable Constance Lozada Unavailable Encounter Details Date Type Department Care Team (Late st Contact Info) Description 01/06/2024 Telephone [facility] Information Management [address] [place] [address] Kassy Cool MD [address] [place] [address] Social History Tobacco Use Types Packs/Day Years [...] on filedocumented in this encounter Care Teams Photogrammetric Surveyor Relationship Specialty Start Date End Date Kassy Cool MD [address] [place] [address] PCP - General Family Medicine 10/09/22 Jackie Maier Health Navigator Case Management 10/09/22 Mel Erazo Community Health Worker Case Management 10/30/22 Constance Lozada 02/24/25 04/29/25 documented as of this encounter
--- OUTSIDE RECORDS SUMMARY | 2025-06-14 21:33 | XMS_ITS | Encounter Summary ---
Author Organization [employer] Address 75 [facility] 7 [place] [address] Care Team Providers Care Outsoles Channel Opener Name Role Phone Darrion Jackie Unavailable Unavailable Kassy Cool MD Primary Care Provider [phone] Mel Erazo Unavailable Unavailable Constance Lozada Unavailable Encounter Details Date Type Department Care Team (Late st Contact Info) Description 10/21/2022 Orders Only [facility] MEDICAL [address] [place] [address] Provider, MD Brandon Social History Tobacco Use [...] Associated Diagnosis Comments TOXICOLOGY SCREEN, URINE Routine 10/11/2022 URINALYSIS WITH REFLEX MICROSCOPIC Routine 10/11/2022 CBC AND DIFFERENTIAL - WAM A ND NON-WAM Routine 10/11/2022 LIPASE Routine 10/11/2022 ALCOHOL, ETHYL, BLOOD Routine 10/11/2022 HEPATIC FUNCTION PANEL Routine 10/11/2022 BASIC METABOLIC PANEL Routine 10/11/2022 documented in this encounter Results * Urinalysis with reflex microscopic (10/11/2022) Urine Urine specimen obtained by clean catch procedure / Unknown Result [facility] Provider MD LAB URINE ORDERABLES Fiorella l Result * Hepatic Function Panel (10/11/2022) Blood Venous blood specimen / Unknown Result [facility] Provider LAB BLOOD ORDERABLES Fiorella l Result * Lipase (10/11/2022) Blood Venous blood specimen / Unknown Result [facility] Provider LAB BLOOD ORDERABLES Fiorella l Result * Basic Metabolic Panel (10/11/2022) Blood Venous blood specimen / Unknown Result [facility] LAB BLOOD ORDERABLES Fiorella l Result * Alcohol, Ethyl (10/11/2022) Blood Venous blood specimen / Unknown Result [facility] Provider LAB BLOOD ORDERABLES Fiorella l Result * CBC and differential (10/11/2022) Blood Venous blood specimen / Unknown Result [facility] MD LAB BLOOD ORDERABLES Fiorella l Result * Toxicology screen, urine (10/11/2022) Urine Urine specimen obtained by clean catch procedure / Unknown Result [facility] LAB URINE ORDERABLES Fiorella l Result documented in this encounter Visit Diagnoses Not on filedocumented in this encounter Care Teams Outsoles Channel Opener Relationship Specialty Start Date End Date Kassy Cool MD [address] [place] [address] PCP - General Family Medicine 10/09/22 Jackie Maier Health Navigator Case Management 10/09/22 Mel Erazo Community Health Worker Case Management 10/30/22 Constance Lozada 02/24/25 04/29/25 documented as of this encounter
--- OUTSIDE RECORDS SUMMARY | 2025-06-14 21:33 | XMS_ITS | Encounter Summary ---
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
--- OUTSIDE RECORDS SUMMARY | 2025-06-14 21:33 | XMS_ITS | Encounter Summary ---
Author Organization [employer] Address 75 [facility] 7 [place] [address] Care Team Providers Care Deputy Sheriff Custody Name Role Phone DarrionJackie Unavailable Unavailable Kassy Cool MD Primary Care Provider [phone] Mel Erazo Unavailable Unavailable Constance Lozada Unavailable Encounter Details Date Type Department Care Team (Late st Contact Info) Description 10/31/2022 Orders Only [facility] MEDICAL [address] [place] [address] Provider, MD Brandon Social History Tobacco Use [...] Name Priority Date/Time Associated Diagnosis Comments CBC Routine 10/25/2022 PHOSPHATE ( PHOSPHORUS) Routine 10/25/2022 MAGNESIUM Routine 10/25/2022 BASIC METABOLIC PANEL Routine 10/25/2022 documented in this encounter Results * Phosphate (As Phosphorus) (10/25/2022) Blood Venous blood specimen / Unknown us Historical Provider LAB BLOOD ORDERABLES Fiorella l Result * Magnesium (10/25/2022) Blood Venous blood specimen / Unknown Historical Provider LAB BLOOD ORDERABLES Fiorella l Result * Basic Metabolic Panel (10/25/2022) Blood Venous blood specimen / Unknown Historical Provider MD LAB BLOOD ORDERABLES Fiorella l Result * CBC (10/25/2022) Blood Venous blood specimen / Unknown Result [facility] Provider LAB BLOOD ORDERABLES Fiorella l Result documented in this encounter Visit Diagnoses Not on filedocumented in this encounter Care Teams Deputy Sheriff Custody Relationship Specialty Start Date End Date Kassy Cool MD [address] [place] [address] PCP - General Family Medicine 10/09/22 Jackie Maier Health Navigator Case Management 10/09/22 Mel Erazo Community Health Worker Case Management 10/30/22 Constance Lozada 02/24/25 04/29/25 documented as of this encounter
--- OUTSIDE RECORDS SUMMARY | 2025-06-14 21:33 | XMS_ITS | Encounter Summary ---
Author Organization [employer] [facility] Address [address] [place] [address] Care Team Providers Care Mail Examiner Name Role Phone Jackie Maier Unavailable Unavailable Kassy Cool MD Primary Care Provider Mel Erazo Unavailable Unavailable Constance Lozada Unavailable Encounter Details Date Type Department Care Team (Late st Contact Info) Description 04/06/2024 Orders Only [facility] MEDICAL [address] [place] [address] Provider, MD Brandon Social History Tobacco Use [...] on filedocumented in this encounter Care Teams Mail Examiner Relationship Specialty Start Date End Date Kassy Cool MD [address] [place] [address] PCP - General Family Medicine 10/09/22 Jackei Maier Health Navigator Case Management 10/09/22 Mel Erazo Community Health Worker Case Management 10/30/22 Constance Lozada 02/24/25 04/29/25 documented as of this encounter
--- OUTSIDE RECORDS SUMMARY | 2025-06-14 21:33 | XMS_ITS | Encounter Summary ---
Author Organization [facility] Address [address] [place] [address] [place] [address] Phone Care Team Providers Care Crime Laboratory Analyst Name Role Phone Kassy Cool MD Primary Care Provider + [phone] Pcp, Unknown Primary Care Provider Unavailabl e Kassy Cool MD Primary Care Provider + [phone] Encounter Details Date Type Department Care Team (Late st Contact Info) Description 05/30/2021 Procedure Pass [facility], Ct Scan - [address] [address] Social History Tobacco Use Types Packs/Day Years [...] 7:47 PM EDT Lukas Lipscomb, BRICE * [place] Suicide Severity Rating Scale (Screener/Recent Self-Report) Question [...] Mclain, RN Note: 06/19/23: Resides @ [address] [place] [address] ([employer]) Dr. Cool's cell [phone] if needed Previous inpatient detox facilities: [facility] is his preferred detox Formerly homeless [facility] [facility] supports General No Carmen Peralta, BRICE Note: Dr. Cool states pt was in a temporary long-term run by [facility] in [place] for about 1 month Oct 2020 recently but he eloped from there. It is now closed. She requests that we add to his care plan to direct him to go directly to the long-term clinic to see her upon ED if he arrives here on a Friday or , call her either way if he is in the ED [phone]. Also ask pt where he is sleeping [...] documented as of this encounter Care Teams Crime Laboratory Analyst Relationship Specialty Start Date End Date Kassy Cool MD [address] [place] [address] PCP - General Family Medicine 05/01/21 01/26/22 Pcp, Unknown PCP - General 01/27/22 03/04/22 Kassy Cool MD [address] [place] [address] [email or web address] PCP - General Family Medicine 04/16/23 documented as of this encounter Additional Source Comments The information contained in this document represents components of the legal health record. It is not the complete legal health record.[facility]
--- OUTSIDE RECORDS SUMMARY | 2025-06-14 21:33 | XMS_ITS | Encounter Summary ---
Author Organization [facility] Address [address] [place] [address] [place] [address] Phone Care Team Providers Care Drum Stock Clerk Name Role Phone Kassy Cool MD Primary Care Provider + [phone] Pcp, Unknown Primary Care Provider Unavailabl e Kassy oCol MD Primary Care Provider + [phone] Encounter Details Date Type Department Care Team (Late st Contact Info) Description 05/01/2021 Procedure Pass [facility], Ct Scan - [address] [address] Social History Tobacco Use Types Packs/Day Years [...] 3:06 PM EDT Ross Gregory RN * [place] Suicide Severity Rating Scale (Screener/Recent Self-Report) Question [...] Raiza Mclain RN Note: 06/19/23: Resides @ [address] [place] [address] ([employer]) Dr. Cool's cell [phone] if needed Previous inpatient detox facilities: [facility] is his preferred detox Formerly homeless [employer] [facility] supports General No Carmen Peralta, BRICE Note: Dr. Cool states pt was in a temporary alf run by [facility] in [place] for about 1 month Oct 2020 recently but he eloped from there. It is now closed. She requests that we add to his care plan to direct him to go directly to the alf clinic to see her upon ED if he arrives here on a Friday or , call her either way if he is in the ED [phone]. Also ask pt where he is sleeping [...] documented as of this encounter Care Teams Drum Stock Clerk Relationship Specialty Start Date End Date Kassy Cool MD [address] [place] [address] [email or web address] PCP - General Family Medicine 05/01/21 01/26/22 Pcp, Unknown PCP - General 01/27/22 03/04/22 Kassy Cool MD 70 [place] [address] PCP - General Family Medicine 04/16/23 documented as of this encounter Additional Source Comments The information contained in this document represents components of the legal health record. It is not the complete legal health record.[facility]
--- OUTSIDE RECORDS SUMMARY | 2025-06-14 21:33 | XMS_ITS | Encounter Summary ---
Author Organization [facility] Address [address] [place] [address] [place] [address] Phone Care Team Providers Care All Source Collection Manager Name Role Phone Kiya Valenzuela NP Primary Care Provider Kassy Cool MD Primary Care Provider Pcp, Unknown Primary Care Provider Unavailabl e Kassy Cool MD Primary Care Provider Encounter Details Date Type Department Care Team (Late st Contact Info) Description 04/27/2021 Procedure Pass [facility], Ct Scan - [address] [address] Social History Tobacco Use Types Packs/Day Years [...] Raiza Mclain, RN Note: 06/19/23: Resides @ [address] [place] [address] ([employer]) Dr. Cool's cell [phone] if needed Previous inpatient detox facilities: [facility] at [facility] is his preferred detox Formerly homeless [employer] [facility] supports General Carmen Juan RN Note: Dr. Cool states pt was in a temporary penitentiary run by [facility] in [place] for about 1 month Oct 2020 recently but he eloped from there. It is now closed. She requests that we add to his care plan to direct him to go directly to the penitentiary clinic to see her upon ED if he arrives here on a Friday or , call her either way if he is in the ED [phone]. Also ask pt where he is sleeping [...] documented as of this encounter Care Teams All Source Collection Manager Relationship Specialty Start Date End Date Kiya Valenzuela NP [address] [place] [address] [email or web address] PCP - General Family Medicine 10/08/20 04/30/21 Kassy Cool MD [address] [place] [address] [email or web address] PCP - General Family Medicine 05/01/21 01/26/22 Pcp, Unknown PCP - General 01/27/22 03/04/22 Kassy Cool MD [address] [place] [address] [email or web address] PCP - General Family Medicine 04/16/23 documented as of this encounter Additional Source Comments The information contained in this document represents components of the legal health record. It is not the complete legal health record.[facility]
--- OUTSIDE RECORDS SUMMARY | 2025-06-14 21:33 | XMS_ITS | Encounter Summary ---
Author Organization [facility] Address [address] [facility] [address] [place] [address] Phone Care Team Providers Care Toaster Operator Name Role Phone Kassy Cool MD Primary Care Provider + [phone] Encounter Details Date Type Department Care Team (Late st Contact Info) Description 11/29/2024 Procedure Pass [facility], Ct Scan - [facility] [address] [place] [address] Social History Tobacco Use Types Packs/Day Years [...] uch as food, clothing, or medical care? Patient unable to respond 11/29/2024 In the past 12 months have y ou been in a relationship with a person who hurts, threatens, or tries to control you? Patient unable to respond 11/29/2024 Are you denied basic needs s uch as food, clothing, or medical care? Patient unable to respond 11/29/2024 In the past 12 months have y ou been in a relationship with a person who hurts, threatens, or tries to control you? Patient unable to respond 11/29/2024 Sex and Gender Information Value Date Recorded Sex Assigned at Male 12/21/2017 8:18 PM EDT Legal Sex Male 9:43 PM EDT Gender Identity Male 12/21/2017 8:18 PM EDT Sexual Orientation Straight 01/14/2018 1: 04 AM EDT documented as of this encounter Functional Status * Calculated C-SSRS Risk Score (Lifetime/Recent) Answer Date of Assessment Author No Risk Indicated 11/29/2024 7:34 PM Jenn Hernandez RN * [place] Suicide Severity Rating Scale (Screener/Recent Self-Report) Question Answer Date of Assessment Author 1. Wish to be (Past 1 Month) No 11/29/2024 7:34 PM Eric Coronel RN 2. Non-Specific Active Suici nacho Thoughts (Past 1 Month) No 11/29/2024 7:34 PM Raulito Coronel RN 6. Suicidal Behavior (Lifetime) No 7:34 PM Jenn Coronel RN documented as of this encounter Plan of Treatment Not on file documented as of this encounter Goals Goal Patient Goal Type Associated Problems Recent Progress Patient-Stated? Author Acute Care Plan Acute Care Plan No Raiza Mclain RN Note: 06/19/23: Resides @ [address] [place] [address] ([employer]) Dr. Cool's cell [phone] if needed Previous inpatient detox facilities: [facility] is his preferred detox Formerly homeless [employer] [facility] recovery supports General No Carmen Peralta RN Note: Dr. Cool states pt was in a temporary usp run by [facility] in [place] for about 1 month Oct 2020 recently but he eloped from there. It is now closed. She requests that we add to his care plan to direct him to go directly to the usp clinic to see her upon ED if he arrives here on a Friday or , call her either way if he is in the ED [phone]. Also ask pt where he is sleeping currently so she can track him down. documented as of this encounter Visit Diagnoses Not on filedocumented in this encounter Additional Health Concerns Infection Onset Date Last Indicated Resolved Time CoV-Risk 04/26/2025 04/26/2025 05/07/2025 1:21 AM EDT documented as of this encounter Care Teams Toaster Operator Relationship Specialty Start Date End Date Kassy Cool MD [address] [place] [address] PCP - General Family Medicine 04/16/23 documented as of this encounter Additional Source Comments The information contained in this document represents components of the legal health record. It is not the complete legal health record.[facility]
--- NOTE | 2025-06-14 22:38 | ECG_ITS ---
Test Reason : ETOH Blood Pressure : */* mmHG Vent. Rate : 60 BPM Atrial Rate : 60 BPM P-R Int : 164 ms QRS Dur : 92 ms QT Int : 436 ms P-R-T Axes : 62 58 58 degrees QTcB Int : 436 ms Sinus rhythm with Premature atrial complexes Otherwise normal ECG When compared with ECG of 09-Dec-2022 23:07, Premature atrial complexes are now Present Referred By: Humza Kingston Electronically Signed By: RADHA GONZALEZ
[2025-06-14 23:00] LABS: MANUAL DIFF FLAG NO
[2025-06-14 23:03] LABS: Hematocrit 39.4 % (42.0-52.0); Hemoglobin 13.3 g/dl (14.0-18.0); Imm Gran Abs Auto 0.01 X10*3/uL (0.00-0.03); Imm Gran Pct Auto 0.2 % (0.0-0.4); Lymphocytes Absolute Auto 2.2 X10*3/uL (1.2-4.9); Mean Corpuscular HGB Conc 33.8 g/dl (31.0-36.0); Mean Corpuscular Hemoglobin 32.6 pg (27.0-33.0); Mean Corpuscular Volume 96.6 fL (80.0-98.0); NRBC Abs Auto 0.000 X10*3/uL (0.0-0.012); NRBC Pct Auto 0.0 /100WBC (0.0-0.2); Platelet Count 132 X10*3/uL (160-400); Red Blood Count 4.08 X10*6/uL (4.60-5.80); White Blood Count 5.2 X10*3/uL (4.8-10.8)
[2025-06-14 23:12] LABS: Appearance Urine Clear; Glucose Urine UA Negative (Negative); PH 5.5 (5.0-9.0); Specific Gravity - Urine <= 1.005 (1.005-1.025)
[2025-06-14 23:15] LABS: Alanine Aminotransferase 11 U/L (0-40); Albumin Level 4.2 g/dL (3.5-5.0); Alkaline Phosphatase 66 U/L (39-117); Anion Gap 13 (12-20); Aspartate Amino Transferase 28 U/L (5-37); Blood Urea Nitrogen 10 mg/dL (9-16); Calcium 8.8 mg/dL (8.4-10.2); Carbon Dioxide 27 mmol/L (22-29); Chloride 107 mmol/L (96-108); Creatinine Clr Calc Pharmacy 89.6; Estimated Glomerular Filt Rate > 60; Magnesium 1.8 mg/dL (1.6-2.6); Potassium 3.9 mmol/L (3.3-5.1); Sodium 143 mmol/L (135-145); Total Protein 6.6 g/dL (6.5-8.0)
[2025-06-14 23:22] LABS: Troponin-I High Sensitivity < 2.7 ng/L (<3.5-35.0)
[2025-06-14 23:40] VITALS: BP 111/72; PULSE 65; RESP 16; TEMP 36.4; O2SAT 99
--- NOTE | 2025-06-14 23:47 | ED.GENADULT ---
HPI - General Adult General Chief complaint: ETOH/Substance Use Stated complaint: Fall ETOH no HS Time Seen by Provider: 06/14/25 22:35 Source: patient, RN notes reviewed and old records reviewed Mode of arrival: EMS Limitations: altered mental status History of Present Illness ED Provider: Vashti PAINTER narrative: 60-year-old male past medical history significant for seizure disorder, alcohol abuse presents for evaluation after a fall. Apparently the patient was found by EMS outside He seemed altered per EMS and was found with alcohol on his person. Apparently there was a witnessed fall with AMS present when the patient fell to his knees. There was no reported head strike. He uses a cane at baseline He complains of chronic back pain from an injury sustained in the many years ago. Otherwise he denies any other injuries. He is not quite sure why he is in the hospital but knows he is in the hospital. He reports he drank 1 beer and 1 shot today Related Data Home Medications ?Medication ?Instructions ?Recorded ?Confirmed levetiracetam 1,000 mg tablet 1 tab PO BID 05/10/21 05/10/21 Previous Rx's ?Medication ?Instructions ?Recorded cefpodoxime 100 mg tablet 100 mg PO BID #14 tabs 05/11/21 Allergies Allergy/AdvReac Type Severity Reaction Status Date / Time aspirin (ASPIRIN) Allergy Unknown STOMACH Verified 06/14/25 21:09 UPSET ibuprofen (IBUPROFEN) Allergy Unknown STOMACH Verified 06/14/25 21:09 UPSET Review of Systems Constitutional: Constitutional: Denies body ache(s), Denies chills, Denies fever(s) and Denies headache(s) Eyes: Eyes: Denies blurry vision ENT: Denies vertigo, Denies dizziness, Denies headache(s) and Denies neck pain Cardiovascular: Cardiovascular: Denies chest pain and Denies dyspnea on exertion Respiratory: Respiratory: Denies cough and Denies dyspnea on exertion Gastrointestinal: Gastrointestinal: Denies abdominal pain, Denies nausea and Denies vomiting Musculoskeletal: Musculoskeletal: Reports back pain, Denies muscle weakness, Denies neck pain, Denies numbness, Denies stiffness and Denies tingling Integumentary/Breasts: Skin/Breast: Denies rash Neurologic: Denies vertigo, Denies dizziness, Denies headache(s), Denies numbness and Denies tingling Psychiatric: Psychiatric: Denies anxiety PMFSH Past Medical History Medical History Alcohol abuse Back pain Seizures Social History Social History Alcohol intake: current Alcohol intake frequency: 3 or more drinks per day Alcohol type: beer and hard liquor Patient Tobacco Use Status: Never used Tobacco Smoked in Last 30 Days: Yes Substance Use Type: Marijuana Advance Directives: Yes Advance Directives on File: Yes Advance Directives Date on File: 12/06/22 Physical Exam ED Vital Signs: Vital Signs - 24 hr 06/14/25 21:06 06/14/25 21:10 06/14/25 23:40 Temperature 98.3 F 98.2 F 97.6 F Pulse Rate 61 62 65 Respiratory Rate 18 17 16 Blood Pressure 115/74 111/75 111/72 Pulse Oximetry 98 98 99 Oxygen Delivery Method Room Air Room Air Room Air 06/15/25 01:19 06/15/25 03:28 06/15/25 05:36 Temperature 98.5 F 98.3 F Pulse Rate 60 61 80 Respiratory Rate 15 15 14 Blood Pressure 97/60 129/69 108/74 Pulse Oximetry 93 99 93 Oxygen Delivery Method Room Air Room Air Room Air BMI result Body Mass Index 24.1 Const General: no acute distress, alert and awake Nutritional Appearance: well nourished [facility] Head: Yes normocephalic and Yes atraumatic Eyes Eyelids: Yes eyelids normal Conjunctivae: conjunctivae normal Sclerae: sclerae normal Corneas: corneas normal Pupils: Equal, round and reactive pupils present EOM: EOMs intact bilaterally Neck Neck: Yes full ROM Resp Effort & Inspection: normal respiratory effort, able to speak in complete sentences, no audible wheezes and not labored Auscultation: clear to auscultation bilaterally Cardio Rate: regular rate Rhythm: regular rhythm GI Inspection: No distended Palpation (GI): Soft to palpation, not firm, nontender, no guarding and not rigid Neuro Other: The patient is oriented to person and place only, he is unsure of the date or event. He is responding to my questions appropriately General: moves all extremities Cranial nerves: Yes Equal, round and reactive pupils present and Yes Bilaterally intact EOM present Motor exam (neuro): 5/5 motor strength present throughout Extrem Other: Moving all extremities well without any obvious deformities Course Reevaluation(s) Reevaluation #1: Patient's CT scans did not show any acute findings. He does have a chronic nasal bone fracture in the imaged head CT. However no evidence of intracranial hemorrhage. Cervical spine CT shows chronic narrowing and spinal stenosis. Labs show no significant metabolic derangement the patient was intoxicated with an alcohol level of 155. Plan for observation until he is sober enough to be discharged home Time: 01:15 Reevaluation #2: 1:22 AM 06/15/2025 (Roger ANGELO): Patient is signed out to this provider at shift change. In summary the patient is a 60-year-old male presenting to the ED for evaluation of alcohol intoxication. Patient however had ethanol level of 155, and history of seizures, was unable to recall events leading up to his presentation in the ED, as such laboratory evaluation and CT imaging was obtained. The patient's laboratory evaluation, EKG, CT head, CT neck, and urinalysis are all unremarkable. Vital signs have been stable. The patient is resting comfortably, we will continue to monitor and reassess for clinical sobriety, pending clinical sobriety the patient will be discharged to his own care. Reevaluation #3: 6:08 AM 06/15/2025 (Dr. Jarad Hunter): I, Dr. Hunter have take over the care of this patient, I reviewed pertinent blood work and imaging, re-evaluated the patient when appropriate. Medical Decision Making Medical Decision Making MDM Narrative: 60-year-old male presents for evaluation after a fall. He admits to drinking alcohol today. He does have a seizure disorder and does not know if he had a seizure or not. There was no witnessed seizure-like activity by EMS. Given that he is only alert and oriented to person and place we will obtain a workup that includes a CT scan of the brain and cervical spine, basic labs including a lactic in his CPK, EKG. He will be kept on the threat monitoring analyst Differential Diagnosis Differential Diagnoses: The differential diagnosis associated with the presentation includes Alcohol abuse Acute alcohol intoxication Seizure Intracranial hemorrhage Mechanical fall Chronic back pain Metabolic derangement Lab Data MDM Lab Attestation statement: I reviewed the patient's lab results. The patient has no leukocytosis, he has a chronic normocytic anemia in his consistent with a baseline with a hemoglobin of 13.3 and a hematocrit 39.4. No significant left shift. Chemistries are within normal limits. The patient has normal renal function. Lactic acid 1.9 which is within normal limits, his CPK is within normal limits, troponin is less than 2.7. Less likely ACS and less likely seizure disorder 06/14/25 22:53 06/14/25 22:53 Labs: Lab Results 06/14/25 06/14/25 Range/Units 22:53 23:05 WBC 5.2 (4.8-10.8) X10*3/uL RBC 4.08 L (4.60-5.80) X10*6/uL Hgb 13.3 L (14.0-18.0) g/dl Hct 39.4 L (42.0-52.0) % MCV 96.6 (80.0-98.0) fL MCH 32.6 (27.0-33.0) pg MCHC 33.8 (31.0-36.0) g/dl RDW 13.5 (11.0-16.0) % Plt Count 132 L (160-400) X10*3/uL MPV 9.5 (9.4-12.4) fL Immature Gran % (Auto) 0.2 (0.0-0.4) % Neut % (Auto) 43.5 L (45-73) % Lymph % (Auto) 43.0 H (20-40) % [place] % (Auto) 10.6 (2-11) % Eos % (Auto) 2.3 (0-4) % Baso % (Auto) 0.4 (0-2) % Lymph # (Auto) 2.2 (1.2-4.9) X10*3/uL [place] # (Auto) 0.6 (0.1-1.2) X10*3/uL Eos # (Auto) 0.1 (0.0-0.4) X10*3/uL Baso # (Auto) 0.0 (0.0-0.2) X10*3/uL Abs Immat Gran (auto) 0.01 (0.00-0.03) X10*3/uL Absolute Neuts (auto) 2.3 (2.0-8.3) x10*3/uL Absolute Nucleated RBC 0.000 (0.0-0.012) X10*3/uL Nucleated RBC % (auto) 0.0 (0.0-0.2) /100WBC Sodium 143 (135-145) mmol/L Potassium 3.9 (3.3-5.1) mmol/L Chloride 107 (96-108) mmol/L Carbon Dioxide 27 (22-29) mmol/L Anion Gap 13 (12-20) BUN 10 (9-16) mg/dL Creatinine 0.95 (0.5-1.4) mg/dL Estim Creat Clear Calc 89.6 Estimated GFR > 60 Random Glucose 85 (60-115) mg/dL Lactic Acid 1.9 (0.5-2.0) mmol/L Calcium 8.8 D (8.4-10.2) mg/dL Magnesium 1.8 (1.6-2.6) mg/dL Total Bilirubin 0.3 (0.0-1.0) mg/dL AST 28 (5-37) U/L ALT 11 (0-40) U/L Alkaline Phosphatase 66 (39-117) U/L Total Creatine Kinase 168 (38-174) U/L Troponin I High Sens < 2.7 (<3.5-35.0) ng/L Total Protein 6.6 (6.5-8.0) g/dL Albumin 4.2 (3.5-5.0) g/dL Urine Color Yellow Urine Appearance Clear Urine pH 5.5 (5.0-9.0) Ur Specific [place] <= 1.005 (1.005-1.025) Urine Protein Negative (Neg-Trace) mg/dL Urine Glucose (UA) Negative (Negative) mg/dL Urine Ketones Negative (Negative) mg/dL Urine Blood Negative (Negative) Urine Nitrite Negative (Negative) Ur Leukocyte Esterase Negative (Negative) Urine RBC 0-2 (0-2) /HPF Urine WBC 0-5 (0-5) /HPF Ur Squamous Epith Cells 0-2 (0-2) /HPF Urine Bacteria None Seen (None Seen) Hyaline Casts 0-2 (0-2) /LPF Ethyl Alcohol 155 mg/dL Independent Interpretation I performed an independent interpretation of an: EKG (Sinus rhythm with premature atrial complexes. Rate of 60 beats per minute. No ST segment changes. nondiagnostic EKG) Radiology Impression Discussion of test interpretation with radiology: I have reviewed the radiologist's reading. Radiologist Impression: Findings: No acute intracranial hemorrhage. No midline shift or hydrocephalus. Mild volume loss is generalized. Mild white matter lesions are nonspecific and may be due to small-vessel ischemic disease. No large arterial territorial infarction by CT. Small old infarction versus perivascular spaces unchanged in the basal ganglia regions. Mild mucosal thickening of the imaged paranasal sinuses. Imaged mastoid air cells are well aerated. No acute skull fracture. Bilateral nasal bone fractures appear old/chronic. Vascular calcifications are redemonstrated. IMPRESSION: 1. No acute intracranial abnormality by CT. 2. Imaged nasal bone fractures appear old/chronic. This document has been electronically signed by: David Ashby MD on 06/15/2025 00:59:48 Findings: No acute fracture of the cervical spine. Mild reversal of the upper cervical lordosis. No significant change in vertebral heights or alignments with mild retrolisthesis at C3-C4 and C4-C5. Disc osteophyte complexes, ligament calcifications, osteophytes, and facet arthropathy are multifocal. Mild spinal canal stenosis by CT including C3-C4 to C6-C7 with severe multifocal foraminal narrowing by CT. No significant change in lucency of the posterior arch of C1 which is likely on a congenital basis. 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 No paraspinal hematoma. Metal artifacts of the vascular calcifications noted. Scarring and emphysematous changes include in the imaged lung apices. IMPRESSION: 1. No acute fracture of the cervical spine. 2. CT findings of spinal stenosis including multifocal foraminal narrowing This document has been electronically signed by: David Ashby MD on 06/15/2025 01:11:57 Discharge Plan Discharge Clinical Impression: Alcoholic intoxication Patient Disposition: Home, Self-Care Instructions: Alcohol Intoxication (ED) Additional Instructions: Thank you for choosing [facility] for your care today. You were seen today for acute alcohol intoxication. At this time there is no indication for admission to the hospital or continued ED observation, and it is safe to discharge you home. Please do not drink alcohol in excess as this is not generally good for your health and can put you at an increased risk for otherwise avoidable injury and health ailments. Failure to decrease your alcohol consumption will put you at increased risk for permanent liver disease and a decreased quality of life. Please utilize all available personal and community resources to reduce or eliminate your alcohol consumption. Please follow up with your primary care physician for re-evaluation, additional management of your symptoms, and continued preventative care. If you do not have a primary care physician, please call the [facility] at [phone] to establish a new primary care physician. While waiting to establish your new primary care physician, you can call our Walk[facility]in [facility] at [phone] for non-emergency needs. Please return to the emergency department if you develop a severe or sudden change in your symptoms, a fever over 100.4 that does not improve with Tylenol or Ibuprofen, recurrent vomiting, or any other new or worsening symptoms or concerns. Prescriptions: No Action levetiracetam 1,000 mg tablet 1 tab PO BID cefpodoxime 100 mg tablet 100 mg PO BID Qty: 14 0RF Rx Instructions: must administer with a meal/food Referrals: Kassy Cool MD [Primary Care Provider, Medical] Clinical Impression: Alcoholic intoxication Print Language: Icelandic
[2025-06-15 01:19] VITALS: BP 97/60; PULSE 60; RESP 15; TEMP 36.9; O2SAT 93
[2025-06-15 03:28] VITALS: BP 129/69; PULSE 61; RESP 15; O2SAT 99
[2025-06-15 05:36] VITALS: BP 108/74; PULSE 80; RESP 14; TEMP 36.8; O2SAT 93
[2025-06-15 08:26] VITALS: BP 121/78; PULSE 66; RESP 14; TEMP 36.7; O2SAT 96
[2025-06-15 08:42] VITALS: BP 121/78; PULSE 66; RESP 14; TEMP 36.7; O2SAT 96
== END 2025-06-15 09:28 | disposition home or self-care (01) ==
PROVIDERS: Physician Assistant; Emergency Provider Emergency Medicine; PCP Family Medicine
DX: F10.129 Alcohol abuse with intoxication, unspecified (principal); Y90.6 Blood alcohol level of 120-199 mg/100 ml; R41.82 Altered mental status, unspecified; G40.909 Epilepsy, unspecified, not intractable, without status epilepticus; S89.92XA Unspecified injury of left lower leg, initial encounter; S89.91XA Unspecified injury of right lower leg, initial encounter; W19.XXXA Unspecified fall, initial encounter; Y93.9 Activity, unspecified; Y92.9 Unspecified place or not applicable; Y99.9 Unspecified external cause status
CPT/HCPCS: 36415; 70450; 72125; 80053; 80307; 81001; 82550; 83605; 83735; 84484; 85025; 93005; 99284; 99285

== ENCOUNTER → 2025-06-14 22:38 | Outpatient (BNV) | payer MEDICAID, SELFPAY | PROVIDERS: Emergency Provider Emergency Medicine; PCP Family Medicine; Visit Provider Internal Medicine | DX: I49.1 Atrial premature depolarization (principal) | CPT/HCPCS: 93010 ==

== ENCOUNTER → 2025-06-15 00:02 | Outpatient (BNV) | payer MEDICAID, SELFPAY | PROVIDERS: Emergency Provider Student in an Organized Health Care Education/Training Program; PCP Family Medicine; Visit Provider Radiology Neuroradiology | DX: M48.02 Spinal stenosis, cervical region (principal); I67.82 Cerebral ischemia | CPT/HCPCS: 70450; 72125 ==

== ENCOUNTER 2025-06-15 22:29 | Emergency (ER) | payer MEDICAID, SELFPAY ==
[2025-06-15 22:36] VITALS: BP 133/82; BP 90/50; PULSE 67; PULSE 72; RESP 14; TEMP 36.6; O2SAT 95; O2SAT 97; BMI 22.4
--- NOTE | 2025-06-15 22:50 | ED.GENADULT ---
HPI - General Adult General Chief complaint: Back Pain/Injury Stated complaint: ETOH, BACK PAIN Time Seen by Provider: 06/15/25 22:50 History of Present Illness ED Provider: Julissa PAINTER narrative: The patient is a 60-year-old male who was an alcoholic. He is homeless. He has been homeless and an alcoholic for decades. He also has a history of a possible seizure disorder for which he is on levetiracetam. He normally lives on the streets in [facility]. He has a history of innumerable visits to the emergency room at [facility]. He also has history of a lot of visits to this emergency room. The patient was seen in the emergency room here yesterday. As part of that evaluation he had a CT scan of the head and the cervical spine. These were negative. He was intoxicated. He was allowed to sleep in the emergency room overnight and was discharged. He returns to the emergency room tonight by ambulance complaining of lower back pain. This is a common complaint for him. Related Data Home Medications ?Medication ?Instructions ?Recorded ?Confirmed levetiracetam 1,000 mg tablet 1 tab PO BID 05/10/21 05/10/21 Previous Rx's ?Medication ?Instructions ?Recorded cefpodoxime 100 mg tablet 100 mg PO BID #14 tabs 05/11/21 Allergies Allergy/AdvReac Type Severity Reaction Status Date / Time aspirin (ASPIRIN) Allergy Unknown STOMACH Verified 06/15/25 22:39 UPSET ibuprofen (IBUPROFEN) Allergy Unknown STOMACH Verified 06/15/25 22:39 UPSET Review of Systems Review of Systems: Yes all other systems are reviewed and are negative [facility] Past Medical History Medical History Alcohol abuse Back pain Seizures Social History Social History Alcohol intake: current Alcohol intake frequency: 3 or more drinks per day Alcohol type: beer and hard liquor Patient Tobacco Use Status: Never used Tobacco Smoked in Last 30 Days: Yes Use of substances other than those prescribed or required for medical reasons: Unknown Substance Use Type: Marijuana Advance Directives: Yes Advance Directives on File: Yes Advance Directives Date on File: 12/06/22 Do you have a plan to hurt others: No Plan Physical Exam ED Vital Signs: Vital Signs - 24 hr 06/15/25 22:36 06/16/25 00:00 06/16/25 01:46 Temperature 97.8 F Pulse Rate 72 67 80 Respiratory Rate 14 Blood Pressure 133/82 102/63 123/97 H Pulse Oximetry 97 Oxygen Delivery Method Room Air 06/16/25 05:30 Temperature 97.5 F Pulse Rate 76 Respiratory Rate 18 Blood Pressure 118/84 Pulse Oximetry 94 Oxygen Delivery Method Room Air BMI result Body Mass Index 22.4 Const Other: The patient is a disheveled, chronically ill-appearing 60-year-old male who was sleeping with a blanket pulled up over his head. He aroused to verbal stimuli. He did not seem in acute distress. HENMT Other: The face is symmetrical. ?Mucous membranes moist. Eyes Other: Pupils are round equal, conjunctivae are clear, extraocular movements intact Neck Other: Moving his neck easily Resp Effort & Inspection: normal respiratory effort Auscultation: clear to auscultation bilaterally Cardio Rate: regular rate Rhythm: regular rhythm Heart sounds: S1 normal heart sound present and S2 normal heart sound present GI Other: Abdomen is soft and nontender Skin Other: The skin is dry and unremarkable Neuro Other: The patient is awake can alert. Cranial nerves are grossly intact. He moves his extremities symmetrically. He walked with a cane with a limping gait but he seemed to walk steadily and fairly quickly. Extrem Other: No peripheral edema Medications Administered Discontinued Medications Generic Name Dose Route Start Last Admin Trade Name Benjaminq PRN Reason Stop Dose Admin Acetaminophen 975 mg 06/16/25 06:47 06/16/25 07:06 Acetaminophen 325 Mg Tablet PO 06/16/25 06:48 975 mg ONCE ONE Administration Gabapentin 600 mg 06/16/25 06:47 06/16/25 07:06 Gabapentin 600 Mg Tablet PO 06/16/25 06:48 600 mg ONCE ONE Administration Levetiracetam 1,000 mg 06/16/25 06:47 06/16/25 07:06 Levetiracetam 1,000 Mg Tablet PO 06/16/25 06:48 1,000 mg ONCE ONE Administration Medical Decision Making Medical Decision Making MDM Narrative: The patient is a 60-year-old male with alcoholism and who has been homeless for a very long time. He is apparently prescribed gabapentin and is also supposed to be on levetiracetam. According to the PDMP he has been on gabapentin in the past. The last time his PCP prescribed gabapentin he was prescribed 600 mg b.i.d.. When I asked him if he is still seeing Dr. Cool he said that he was. Additionally a few years ago he was given housing in housing organized by his PCP in [facility]. He claims that he still has that apartment. The patient was observed overnight until he was sober. His labs were remarkably normal. His alcohol level was 147. He was observed in the emergency room for over 8 hours. In the morning he seemed to be walking reasonably well with his cane. He walks with a limp which I think is chronic. I felt he was steady on his feet. I felt that discharge was appropriate. He was advised to follow up with Dr. Cool. Lab Data 06/16/25 00:05 06/16/25 00:05 Labs: Lab Results 06/16/25 Range/Units 00:05 WBC 6.5 (4.8-10.8) X10*3/uL RBC 3.99 L (4.60-5.80) X10*6/uL Hgb 12.9 L (14.0-18.0) g/dl Hct 37.9 L (42.0-52.0) % MCV 95.0 (80.0-98.0) fL MCH 32.3 (27.0-33.0) pg MCHC 34.0 (31.0-36.0) g/dl RDW 13.0 (11.0-16.0) % Plt Count 138 L (160-400) X10*3/uL MPV 9.4 (9.4-12.4) fL Immature Gran % (Auto) 0.2 (0.0-0.4) % Neut % (Auto) 46.4 (45-73) % Lymph % (Auto) 39.9 (20-40) % [place] % (Auto) 10.7 (2-11) % Eos % (Auto) 2.2 (0-4) % Baso % (Auto) 0.6 (0-2) % Lymph # (Auto) 2.5 (1.2-4.9) X10*3/uL [place] # (Auto) 0.7 (0.1-1.2) X10*3/uL Eos # (Auto) 0.1 (0.0-0.4) X10*3/uL Baso # (Auto) 0.0 (0.0-0.2) X10*3/uL Abs Immat Gran (auto) 0.01 (0.00-0.03) X10*3/uL Absolute Neuts (auto) 2.9 (2.0-8.3) x10*3/uL Absolute Nucleated RBC 0.000 (0.0-0.012) X10*3/uL Nucleated RBC % (auto) 0.0 (0.0-0.2) /100WBC Smear Tech's Comments VERIFIED PT 10.2 L (10.9-12.4) SEC INR 0.9 (0.9-1.1) Sodium 137 (135-145) mmol/L Potassium 4.0 (3.3-5.1) mmol/L Chloride 104 (96-108) mmol/L Carbon Dioxide 24 (22-29) mmol/L Anion Gap 13 (12-20) BUN 7 L (9-16) mg/dL Creatinine 0.83 (0.5-1.4) mg/dL Estim Creat Clear Calc 98.9 Estimated GFR > 60 Random Glucose 79 (60-115) mg/dL Calcium 8.6 (8.4-10.2) mg/dL Total Bilirubin 0.3 (0.0-1.0) mg/dL Direct Bilirubin 0.1 (0.0-0.5) mg/dL AST 25 (5-37) U/L ALT 10 (0-40) U/L Alkaline Phosphatase 63 (39-117) U/L Total Protein 6.4 L (6.5-8.0) g/dL Albumin 4.1 (3.5-5.0) g/dL Ethyl Alcohol 147 mg/dL Discharge Plan Discharge Clinical Impression: Alcohol intoxication Patient Disposition: Home, Self-Care Additional Instructions: Please try to stop drinking alcohol. Alcohol use disorder You were seen in the Emergency Department today for treatment of alcohol use disorder.? You may have been given medications to help with your withdrawal symptoms.? Please do not drink alcohol with them. This is very dangerous and can cause respiratory depression or other adverse reactions depending on the medication. If you would like to cut down or stop your alcohol use please consider calling our outpatient Addiction Treatment office:? [facility] (M-F [id number]) [address] [place] [address] [address] You have also been given a list of treatment providers in the area that can assist as well.? If you experience seizures, vomiting blood, black stools, falls, severe headache, chest pain, fevers, trouble breathing, hallucinations or any other concerns you need to call 911 or seek immediate care. Please stay hydrated. Please follow-up with your regular doctor. Prescriptions: No Action levetiracetam 1,000 mg tablet 1 tab PO BID cefpodoxime 100 mg tablet 100 mg PO BID Qty: 14 0RF Rx Instructions: must administer with a meal/food Referrals: Kassy Cool MD [Physician, Medical] Interventions: ED Discharge Assessment Last Done: 06/16/25 07:10 Print Language: Greek
[2025-06-16] VITALS: BP 102/63; PULSE 67
--- OUTSIDE RECORDS SUMMARY | 2025-06-16 | XMS_ITS | Encounter Summary ---
Author Organization [facility] Address [address] [place] [address] [place] [address] Phone Care Team Providers Care Crm Marketing Specialist Name Role Phone Kassy Cool MD Primary Care Provider + [phone] Encounter Details Date Type Department Care Team (Late st Contact Info) Description 12/17/2022 Procedure Pass [facility], Ct Scan - [address] [address] Social History Tobacco Use Types Packs/Day Years [...] 5:12 PM EDT Jenn Bland RN * [place] Suicide Severity Rating Scale (Screener/Recent Self-Report) Question [...] Raiza Mclain, RN Note: 06/19/23: Resides @ [address] [place] [address] ([employer]) Dr. Cool's cell [phone] if needed Previous inpatient detox facilities: Razo Unit at [facility] is his preferred detox Formerly homeless Engage in recovery supports General No Carmen Peralta, BRICE Note: Dr. Cool states pt was in a temporary jail run by [facility] in [place] for about 1 month Oct 2020 recently but he eloped from there. It is now closed. She requests that we add to his care plan to direct him to go directly to the jail clinic to see her upon ED if he arrives here on a Friday or , call her either way if he is in the ED [phone]. Also ask pt where he is sleeping [...] as of this encounter Care Teams Crm Marketing Specialist Relationship Specialty Start Date End Date Kassy Cool MD [address] [place] [address] PCP - General Family Medicine 04/16/23 documented as of this encounter Additional Source Comments The information contained in this document represents components of the legal health record. It is not the complete legal health record.[facility]
--- OUTSIDE RECORDS SUMMARY | 2025-06-16 00:01 | XMS_ITS | Encounter Summary ---
Author Organization [facility] Address [address] [place] [address] [place] [address] Phone Care Team Providers Care Parts Picker Name Role Phone Valdez Abebe MD Unavailable [phone] Valdez Abebe MD Primary Care Provider Kiya Valenzuela ELECTRICAL LINEMAN Primary Care Provider Hussein Vasquez MD Unavailable Valdez Abebe MD Unavailable [phone] Hussein Vasquez MD Unavailable Kiya Valenzuela ELECTRICAL LINEMAN Primary Care Provider Kassy Cool MD Primary Care Provider Pcp, Unknown Primary Care Provider Unavailabl e Kassy Cool MD Primary Care Provider Encounter Details Date Type Department Care Team (Late st Contact Info) Description 07/13/2018 Procedure Pass [facility], Ct Scan - [address] [address] Social History Tobacco Use Types Packs/Day Years [...] documented as of this encounter Care Teams Parts Picker Relationship Specialty Start Date End Date Valdez Abebe MD [address] [place] [address] [email or web address] PCP - General Family Medicine 06/09/18 09/02/19 Kiya Valenzuela ELECTRICAL LINEMAN [address] [place] [phone] [email or web address] PCP - General Family Medicine 09/03/19 10/07/20 Kiya Valenzuela ELECTRICAL LINEMAN [address] [place] [address] [email or web address] PCP - General Family Medicine 10/08/20 04/30/21 Kassy Cool MD [address] [place] [address] [email or web address] PCP - General Family Medicine 05/01/21 01/26/22 Pcp, Unknown PCP - General 01/27/22 03/04/22 Kassy Cool MD [address] [place] [address] [email or web address] PCP - General Family Medicine 04/16/23 Valdez Abebe MD [address] [place] [address] [email or web address] Assigned Provider 05/30/18 10/29/19 Hussein Vasquez MD [address] [place] [address] [place] [phone] [email or web address] Assigned Provider 10/29/19 01/05/20 Valdez Abebe MD [address] [place] [phone] [email or web address] [email or web address] Provider 01/05/20 04/03/20 Hussein Vasquez MD [address] [facility] [address] [place] [id number] [email or web address] Assigned Provider 05/04/20 01/06/21 documented as of this encounter Additional Source Comments The information contained in this document represents components of the legal health record. It is not the complete legal health record.[facility]
--- OUTSIDE RECORDS SUMMARY | 2025-06-16 00:01 | XMS_ITS | Encounter Summary ---
Author Organization [facility] Address [address] [place] [address] [place] [address] Phone Care Team Providers Care Multifocal Button Inspector Name Role Phone Kassy Cool MD Primary Care Provider + [phone] Encounter Details Date Type Department Care Team (Late st Contact Info) Description 10/11/2022 Procedure Pass [facility], Ct Scan - [address] [address] Social History Tobacco Use Types Packs/Day Years [...] 10/11/2022 6:24 PM Chata Anand RN * [place] Suicide Severity Rating Scale (Screener/Recent Self-Report) Question [...] Raiza Mclain, RN Note: 06/19/23: Resides @ [address] [place] [address] ([facility] [employer]) Dr. Cool's cell [phone] if needed Previous inpatient detox facilities: Razo Unit at [facility] is his preferred detox Formerly homeless Engage in recovery supports General No Carmen Peralta, BRICE Note: Dr. Cool states pt was in a temporary usp run by [facility] in [place] for about 1 month Oct 2020 recently but he eloped from there. It is now closed. She requests that we add to his care plan to direct him to go directly to the usp clinic to see her upon ED if he arrives here on a Friday or , call her either way if he is in the ED [phone]. Also ask pt where he is sleeping [...] documented as of this encounter Care Teams Multifocal Button Inspector Relationship Specialty Start Date End Date Kassy Cool MD [address] [place] [address] PCP - General Family Medicine 04/16/23 documented as of this encounter Additional Source Comments The information contained in this document represents components of the legal health record. It is not the complete legal health record.[facility]
--- OUTSIDE RECORDS SUMMARY | 2025-06-16 00:01 | XMS_ITS | Encounter Summary ---
Author Organization [facility] Address [address] [place] [address] [place] [address] Phone Care Team Providers Care Cook Sauce Name Role Phone Kassy Cool MD Primary Care Provider [phone] Encounter Details Date Type Department Care Team (Late st Contact Info) Description 12/19/2022 Procedure Pass [place] Admitting Dept - Virtual Department [address] [place] [address] Social History Tobacco Use Types Packs/Day Years [...] Raiza Mclain, RN Note: 06/19/23: Resides @ [address] [place] [address] ([employer]) Dr. Cool's cell [phone] if needed Previous inpatient detox facilities: Razo Unit at [facility] is his preferred detox Formerly homeless Engage in recovery supports General No Carmen Peralta, RN Note: Dr. Cool states pt was in a temporary long term run by [facility] in [place] for about 1 month Oct 2020 recently but he eloped from there. It is now closed. She requests that we add to his care plan to direct him to go directly to the long term clinic to see her upon ED if he arrives here on a Friday or , call her either way if he is in the ED [phone]. Also ask pt where he is sleeping [...] documented as of this encounter Care Teams Cook Sauce Relationship Specialty Start Date End Date Kassy Cool MD [address] [place] [address] [email or web address] PCP - General Family Medicine 04/16/23 documented as of this encounter Additional Source Comments The information contained in this document represents components of the legal health record. It is not the complete legal health record.[facility]
--- OUTSIDE RECORDS SUMMARY | 2025-06-16 00:02 | XMS_ITS | Encounter Summary ---
Author Organization [facility] Address [address] [place] [address] Phone Care Team Providers Care Licensed Embalmer Name Role Phone Pcp, Unknown Primary Care Provider Kassy Pollack MD Primary Care Provider [phone] Encounter Details Date Type Department Care Team (Late st Contact Info) Description 03/01/2022 Procedure Pass [facility], Ct Scan - [address] [address] Social History Tobacco Use Types Packs/Day Years [...] 11:02 AM EDT Rosio Leavitt RN * [place] Suicide Severity Rating Scale (Screener/Recent Self-Report) Question Answer Date of Assessment Author 1. Wish to be (Past 1 Month) No 03/01/2022 11:02 AM EDT Rosio Leavitt RN 2. Non-Specific Active Suici nacho Thoughts (Past 1 Month) No 03/01/2022 11:02 AM EDT [place], [place] sey J, RN 6. Suicidal Behavior (Lifetime) No 11:02 AM EDT Rosio Leavitt RN documented as of this encounter Plan of Treatment Not on file documented as of this encounter Goals Goal Patient Goal Type Associated Problems Recent Progress Patient-Stated? Author Acute Care Plan Acute Care Plan No Raiza Mclain RN Note: 06/19/23: Resides @ [address] [place] [address] ([employer]) Dr. Cool's cell [phone] if needed Previous inpatient detox facilities: Razo Unit at [facility] is his preferred detox Formerly homeless Engage in recovery supports General No Carmen Peralta, BRICE Note: Dr. Cool states pt was in a temporary mcc run by [facility] in [place] for about 1 month Oct 2020 recently but he eloped from there. It is now closed. She requests that we add to his care plan to direct him to go directly to the [facility] clinic to see her upon ED if he arrives here on a Friday or , call her either way if he is in the ED [phone]. Also ask pt where he is sleeping [...] documented as of this encounter Care Teams Licensed Embalmer Relationship Specialty Start Date End Date Pcp, Unknown PCP - General 01/27/22 03/04/22 Kassy Cool MD [address] [place] [address] PCP - General Family Medicine 04/16/23 documented as of this encounter Additional Source Comments The information contained in this document represents components of the legal health record. It is not the complete legal health record.[facility]
--- OUTSIDE RECORDS SUMMARY | 2025-06-16 00:02 | XMS_ITS | Encounter Summary ---
Author Organization [facility] Address [address] [place] [address] Phone Care Team Providers Care Experimental Psychologist Name Role Phone Unknown, Unknown Primary Care Provider Kiya Beauchamp VOLLEYBALL PLAYER Primary Care Provider Valdez Abebe MD Unavailable [phone] Valdez Abebe MD Primary Care Provider Kiya Valenzuela VOLLEYBALL PLAYER Primary Care Provider Hussein Vasquez MD Unavailable Valdez Abebe MD Unavailable [phone] Hussein Vasquez MD Unavailable Kiya Valenzuela VOLLEYBALL PLAYER Primary Care Provider Kassy Cool MD Primary Care Provider Pcp, Unknown Primary Care Provider Unavailabl e Kassy Cool MD Primary Care Provider [phone] Encounter Details Date Type Department Care Team (Late st Contact Info) Description 01/14/2018 Procedure Pass [facility], Ct Scan - [address] [address] Social History Tobacco Use Types Packs/Day Years [...] documented as of this encounter Care Teams Experimental Psychologist Relationship Specialty Start Date End Date Unknown, Unknown, PCP - General 08/18/17 01/26/18 Kiya Valenzuela, STEVE [address] [place] [address] [phone] (work) [email or web address] PCP - General Family Medicine 01/27/18 06/08/18 Valdez Abebe MD [address] [place] [address] [email or web address] PCP - General Family Medicine 06/09/18 09/02/19 Kiya Valenzuela NP [address] [place] [address] [email or web address] PCP - General Family Medicine 09/03/19 10/07/20 Kiya Valenzuela NP [address] [place] [address] [email or web address] PCP - General Family Medicine 10/08/20 04/30/21 Kassy Cool MD [address] [place] [address] [email or web address] PCP - General Family Medicine 05/01/21 01/26/22 Pcp, Unknown PCP - General 01/27/22 03/04/22 Kassy Cool MD [address] [place] [phone] [email or web address] PCP - General Family Medicine 04/16/23 Valdez Abebe MD [address] [place] [address] [email or web address] Insurance Assigned Provider 05/30/18 10/29/19 Hussein Vasquez MD [address] [place] [address] [address] [place] [phone] [email or web address] Insurance Assigned Provider 10/29/19 01/05/20 Valdez Abebe MD [address] [place] [address] [email or web address] Insurance Assigned Provider 01/05/20 04/03/20 Hussein Vasquez MD [address] [place] [address] [address] [place] [phone] [email or web address] Insurance Assigned Provider 05/04/20 01/06/21 documented as of this encounter Additional Source Comments The information contained in this document represents components of the legal health record. It is not the complete legal health record.[facility]
--- OUTSIDE RECORDS SUMMARY | 2025-06-16 00:02 | XMS_ITS | Encounter Summary ---
Author Organization [facility] Address [address] [place] [address] [place] [address] Phone Care Team Providers Care Earth Sciences Professor Name Role Phone Kassy Cool MD Primary Care Provider + [phone] Encounter Details Date Type Department Care Team (Late st Contact Info) Description 10/11/2022 Procedure Pass [facility], Ct Scan - [address] [address] Social History Tobacco Use Types Packs/Day Years [...] 10/11/2022 6:24 PM Chata Anand RN * [place] Suicide Severity Rating Scale (Screener/Recent Self-Report) Question [...] Raiza Mclain, RN Note: 06/19/23: Resides @ [address] [place] [address] ([facility] [employer]) Dr. Cool's cell [phone] if needed Previous inpatient detox facilities: R[facility] Unit at [facility] is his preferred detox Formerly homeless Engage in recovery supports General No Carmen Peralta, BRICE Note: Dr. Cool states pt was in a temporary usp run by [facility] in [place] for about 1 month Oct 2020 recently but he eloped from there. It is now closed. She requests that we add to his care plan to direct him to go directly to the usp clinic to see her upon ED if he arrives here on a Friday or , call her either way if he is in the ED [phone]. Also ask pt where he is sleeping [...] documented as of this encounter Care Teams Earth Sciences Professor Relationship Specialty Start Date End Date Kassy Cool MD [address] [place] [address] PCP - General Family Medicine 04/16/23 documented as of this encounter Additional Source Comments The information contained in this document represents components of the legal health record. It is not the complete legal health record.[facility]
--- OUTSIDE RECORDS SUMMARY | 2025-06-16 00:02 | XMS_ITS | Encounter Summary ---
Author Organization [facility] Address [address] [place] [address] Phone Care Team Providers Care Script Manager Name Role Phone Pcp, Unknown Primary Care Provider Kassy Pollack MD Primary Care Provider [phone] Encounter Details Date Type Department Care Team (Late st Contact Info) Description 03/01/2022 Procedure Pass [facility], Ct Scan - [address] [address] Social History Tobacco Use Types Packs/Day Years [...] 11:02 AM EDT Rosio Leavitt RN * [place] Suicide Severity Rating Scale (Screener/Recent Self-Report) Question Answer Date of Assessment Author 1. Wish to be (Past 1 Month) No 03/01/2022 11:02 AM EDT Rosio Leavitt RN 2. Non-Specific Active Suici nacho Thoughts (Past 1 Month) No 03/01/2022 11:02 AM EDT [place], [place] sey J, RN 6. Suicidal Behavior (Lifetime) No 11:02 AM EDT Rosio Leavitt RN documented as of this encounter Plan of Treatment Not on file documented as of this encounter Goals Goal Patient Goal Type Associated Problems Recent Progress Patient-Stated? Author Acute Care Plan Acute Care Plan No Raiza Mclain RN Note: 06/19/23: Resides @ [address] [place] [address] ([employer]) Dr. Cool's cell [phone] if needed Previous inpatient detox facilities: Razo Unit at [facility] is his preferred detox Formerly homeless Engage in recovery supports General No Carmen Peralta, BRICE Note: Dr. Cool states pt was in a temporary care home run by [facility] in [place] for about 1 month Oct 2020 recently but he eloped from there. It is now closed. She requests that we add to his care plan to direct him to go directly to the care home clinic to see her upon ED if he arrives here on a Friday or , call her either way if he is in the ED [phone]. Also ask pt where he is sleeping [...] documented as of this encounter Care Teams Script Manager Relationship Specialty Start Date End Date Pcp, Unknown PCP - General 01/27/22 03/04/22 Kassy Cool MD [address] [place] [address] PCP - General Family Medicine 04/16/23 documented as of this encounter Additional Source Comments The information contained in this document represents components of the legal health record. It is not the complete legal health record.[facility]
--- OUTSIDE RECORDS SUMMARY | 2025-06-16 00:02 | XMS_ITS | Encounter Summary ---
Author Organization [facility] Address [address] [place] [address] [place] [address] Phone Care Team Providers Care Beam Dyer Operator Name Role Phone Kassy Cool MD Primary Care Provider + [phone] Encounter Details Date Type Department Care Team (Late st Contact Info) Description 12/17/2022 Procedure Pass [facility], Ct Scan - [address] [address] Social History Tobacco Use Types Packs/Day Years [...] 5:12 PM EDT Jenn Bland RN * [place] Suicide Severity Rating Scale (Screener/Recent Self-Report) Question Answer Date of Assessment Author 1. Wish to be (Past 1 Month) No 12/17/2022 5:12 PM EDT Nathalia Kirk, RBICE 2. Non-Specific Active Suicidal Thoughts (Past 1 [...] Mclain, RN Note: 06/19/23: Resides @ [address] [place] [address] ([employer]) Dr. Cool's cell [phone] if needed Previous inpatient detox facilities: Razo Unit at [facility] is his preferred detox Formerly homeless Engage in recovery supports General No Carmen Peralta, BRICE Note: Dr. Cool states pt was in a temporary long-term run by [facility]NOTE [facility] in [place] for about 1 month Oct 2020 recently but he eloped from there. It is now closed. She requests that we add to his care plan to direct him to go directly to the long-term clinic to see her upon ED if he arrives here on a Friday or , call her either way if he is in the ED [phone]. Also ask pt where he is sleeping [...] documented as of this encounter Care Teams Beam Dyer Operator Relationship Specialty Start Date End Date Kassy Cool MD [address] [place] [address] PCP - General Family Medicine 04/16/23 documented as of this encounter Additional Source Comments The information contained in this document represents components of the legal health record. It is not the complete legal health record.[facility]
--- OUTSIDE RECORDS SUMMARY | 2025-06-16 00:02 | XMS_ITS | Encounter Summary ---
Author Organization [facility] Address [address] [place] [address] Phone Care Team Providers Care Neonatal Nurse Name Role Phone Kiya Valenzuela MACHINE REPAIRER MAINTENANCE Primary Care Provider Valdez Abebe MD Unavailable [phone] Valdez Abebe MD Primary Care Provider Kiya Valenzuela MACHINE REPAIRER MAINTENANCE Primary Care Provider Hussein Vasquez MD Unavailable Valdez Abebe MD Unavailable [phone] Hussein Vasquez MD Unavailable Kiya Valenzuela MACHINE REPAIRER MAINTENANCE Primary Care Provider Kassy Cool MD Primary Care Provider + [phone] Pcp, Unknown Primary Care Provider Unavailabl e Kassy Cool MD Primary Care Provider + [phone] Encounter Details Date Type Department Care Team (Late st Contact Info) Description 04/23/2018 Procedure Pass [facility], Ct Scan - [facility] [address] [place] [address] Social History Tobacco Use Types Packs/Day Years [...] documented as of this encounter Care Teams Neonatal Nurse Relationship Specialty Start Date End Date Kiya Valenzuela NP [address] [place] [phone] [email or web address] PCP - General Family Medicine 5/1/18 9/10/18 Valdez Abebe MD [address] [place] [address] [email or web address] PCP - General Family Medicine 06/09/18 09/02/19 Kiya Valenzuela MACHINE REPAIRER MAINTENANCE [address] [place] [address] [email or web address] PCP - General Family Medicine 09/03/19 10/07/20 Kiya Valenzuela NP [address] [place] [phone] [email or web address] PCP - General Family Medicine 10/08/20 04/30/21 Kassy Cool MD [address] [place] [phone] [email or web address] PCP - General Family Medicine 05/01/21 01/26/22 Pcp, Unknown PCP - General 01/27/22 03/04/22 Kassy Cool MD [address] [place] [phone] [email or web address] PCP - General Family Medicine 04/16/23 Valdez Abebe MD [address] [place] [address] [email or web address] Assigned Provider 05/30/18 10/29/19 Hussein Vasquez MD [address] [place] [address] [address] [place] [phone] [email or web address] Assigned Provider 10/29/19 01/05/20 Vadlez Abebe MD [address] [place] [address] [email or web address] Assigned Provider 01/05/20 04/03/20 Hussein Vasquez MD [address] [place] [phone] [email or web address] Assigned Provider 05/04/20 01/06/21 documented as of this encounter Additional Source Comments The information contained in this document represents components of the legal health record. It is not the complete legal health record.[facility]
--- OUTSIDE RECORDS SUMMARY | 2025-06-16 00:02 | XMS_ITS | Encounter Summary ---
Author Organization [facility] Address [address] [place] [address] [place] [address] Phone Care Team Providers Care Computer Numerical Control Machinist Name Role Phone Kassy Cool MD Primary Care Provider + [phone] Encounter Details Date Type Department Care Team (Late st Contact Info) Description 03/29/2022 Procedure Pass [facility], Ct Scan - [address] [address] Social History Tobacco Use Types Packs/Day Years [...] 1:20 PM EDT Shira Salomon RN * [place] Suicide Severity Rating Scale (Screener/Recent Self-Report) Question [...] Raiza Mclain, RN Note: 06/19/23: Resides @ [address] [place] [address] ([employer]) Dr. Cool's cell [phone] if needed Previous inpatient detox facilities: Razo Unit at [facility] is his preferred detox Formerly homeless Engage in recovery supports General No Carmen Peralta, BRICE Note: Dr. Cool states pt was in a temporary jail run by [facility] in [place] for about 1 month Oct 2020 recently but he eloped from there. It is now closed. She requests that we add to his care plan to direct him to go directly to the jail clinic to see her upon ED if he arrives here on a Friday or , call her either way if he is in the ED [phone]. Also ask pt where he is sleeping [...] documented as of this encounter Care Teams Computer Numerical Control Machinist Relationship Specialty Start Date End Date Kassy Cool MD [address] [place] [address] PCP - General Family Medicine 04/16/23 documented as of this encounter Additional Source Comments The information contained in this document represents components of the legal health record. It is not the complete legal health record.[facility]
--- OUTSIDE RECORDS SUMMARY | 2025-06-16 00:02 | XMS_ITS | Encounter Summary ---
Author Organization [facility] Address [address] [place] [address] [place] [address] Phone Care Team Providers Care Pomology Teacher Name Role Phone Kassy Cool MD Primary Care Provider + [phone] Encounter Details Date Type Department Care Team (Late st Contact Info) Description 04/01/2022 Procedure Pass [facility], Ct Scan - [address] [address] Social History Tobacco Use Types Packs/Day Years [...] 1:20 PM EDT Shira Salomon RN * [place] Suicide Severity Rating Scale (Screener/Recent Self-Report) Question [...] Raiza Mclain, RN Note: 06/19/23: Resides @ [address] [place] [address] ([employer]) Dr. Cool's cell [phone] if needed Previous inpatient detox facilities: Razo Unit at [facility] is his preferred detox Formerly homeless Engage in recovery supports General No Carmen Peralta, BRICE Note: Dr. Cool states pt was in a temporary residential run by [facility] in [place] for about 1 month Oct 2020 recently but he eloped from there. It is now closed. She requests that we add to his care plan to direct him to go directly to the residential clinic to see her upon ED if he arrives here on a Friday or , call her either way if he is in the ED [phone]. Also ask pt where he is sleeping [...] documented as of this encounter Care Teams Pomology Teacher Relationship Specialty Start Date End Date Kassy Cool MD [address] [place] [address] PCP - General Family Medicine 04/16/23 documented as of this encounter Additional Source Comments The information contained in this document represents components of the legal health record. It is not the complete legal health record.[facility]
--- OUTSIDE RECORDS SUMMARY | 2025-06-16 00:02 | XMS_ITS | Encounter Summary ---
Author Organization [facility] Address [address] [place] [address] [place] [address] Phone Care Team Providers Care In House Cra Name Role Phone Kassy Cool MD Primary Care Provider + [phone] Encounter Details Date Type Department Care Team (Late st Contact Info) Description 03/29/2022 Procedure Pass [facility], Ct Scan - [address] [address] Social History Tobacco Use Types Packs/Day Years [...] 1:20 PM EDT Shira Salomon RN * [place] Suicide Severity Rating Scale (Screener/Recent Self-Report) Question [...] Raiza Mclain, RN Note: 06/19/23: Resides @ [address] [place] [address] ([employer]) Dr. Cool's cell [phone] if needed Previous inpatient detox facilities: Razo Unit at [facility] is his preferred detox Formerly homeless Engage in recovery supports General No Carmen Peralta, BRICE Note: Dr. Cool states pt was in a temporary jail run by [facility] in [place] for about 1 month Oct 2020 recently but he eloped from there. It is now closed. She requests that we add to his care plan to direct him to go directly to the jail clinic to see her upon ED if he arrives here on a Friday or , call her either way if he is in the ED [phone]. Also ask pt where he is sleeping [...] documented as of this encounter Care Teams In House Cra Relationship Specialty Start Date End Date Kassy Cool MD [address] [place] [address] [email or web address] PCP - General Family Medicine 04/16/23 documented as of this encounter Additional Source Comments The information contained in this document represents components of the legal health record. It is not the complete legal health record.[facility]
--- OUTSIDE RECORDS SUMMARY | 2025-06-16 00:03 | XMS_ITS | Encounter Summary ---
Author Organization [facility] Address [address] [place] [address] [place] [address] Phone Care Team Providers Care Electronic Commerce Specialist Name Role Phone Kassy Cool MD Primary Care Provider + [phone] Pcp, Unknown Primary Care Provider Unavailabl e Kassy Cool MD Primary Care Provider + [phone] Encounter Details Date Type Department Care Team (Late st Contact Info) Description 01/24/2022 Procedure Pass [facility], Ct Scan - [address] [address] Social History Tobacco Use Types Packs/Day Years [...] 9:39 PM EDT Tracey Wilson RN * [place] Suicide Severity Rating Scale (Screener/Recent Self-Report) Question [...] Raiza Mclain RN Note: 06/19/23: Resides @ [address] [place] [address] ([employer]) Dr. Cool's cell [phone] if needed Previous inpatient detox facilities: Razo Unit at [facility] is his preferred detox Formerly homeless Engage in recovery supports General No Carmen Peralta RN Note: Dr. Cool states pt was in a temporary custodial run by [facility] in [place] for about 1 month Oct 2020 recently but he eloped from there. It is now closed. She requests that we add to his care plan to direct him to go directly to the custodial clinic to see her upon ED if he arrives here on a Friday or , call her either way if he is in the ED [phone]. Also ask pt where he is sleeping [...] documented as of this encounter Care Teams Electronic Commerce Specialist Relationship Specialty Start Date End Date Kassy Cool MD [address] [place] [address] [email or web address] PCP - General Family Medicine 05/01/21 01/26/22 Pcp, Unknown PCP - General 01/27/22 03/04/22 Kassy Cool MD [address] [place] [address] [email or web address] PCP - General Family Medicine 04/16/23 documented as of this encounter Additional Source Comments The information contained in this document represents components of the legal health record. It is not the complete legal health record.[facility]
--- OUTSIDE RECORDS SUMMARY | 2025-06-16 00:03 | XMS_ITS | Encounter Summary ---
Author Organization [facility] Address [address] [place] [address] [place] [address] Phone Care Team Providers Care Supervisor Pig Machine Name Role Phone Kassy Cool MD Primary Care Provider + [phone] Pcp, Unknown Primary Care Provider Unavailabl e Kassy Cool MD Primary Care Provider + [phone] Encounter Details Date Type Department Care Team (Late st Contact Info) Description 07/28/2021 Procedure Pass [facility], Ct Scan - [address] [address] Social History Tobacco Use Types Packs/Day Years [...] 5:31 PM EDT Cindy Reyes RN * [place] Suicide Severity Rating Scale (Screener/Recent Self-Report) Question [...] Raiza Mclain, RN Note: 06/19/23: Resides @ [address] [place] [address] ([employer]) Dr. Cool's cell [phone] if needed Previous inpatient detox facilities: Razo Unit at [facility] is his preferred detox Formerly homeless Engage in recovery supports General No aCrmen Peralta, BRICE Note: Dr. Cool states pt was in a temporary m[facility] run by [facility] in [place] for about 1 month Oct 2020 recently but he eloped from there. It is now closed. She requests that we add to his care plan to direct him to go directly to the m[facility]p clinic to see her upon ED if he arrives here on a Friday or , call her either way if he is in the ED [phone]. Also ask pt where he is sleeping [...] as of this encounter Care Teams Supervisor Pig Machine Relationship Specialty Start Date End Date Kassy Cool MD [address] [place] [address] [email or web address] PCP - General Family Medicine 05/01/21 01/26/22 Pcp, Unknown PCP - General 01/27/22 03/04/22 Kassy Cool MD [address] [place] [address] [email or web address] PCP - General Family Medicine 04/16/23 documented as of this encounter Additional Source Comments The information contained in this document represents components of the legal health record. It is not the complete legal health record.[facility]
--- OUTSIDE RECORDS SUMMARY | 2025-06-16 00:03 | XMS_ITS | Encounter Summary ---
Author Organization [facility] Address [address] [place] [address] Phone Care Team Providers Care Decorating Kiln Operator Name Role Phone Kiya Valenzuela QUANTITATIVE SOFTWARE ENGINEER Primary Care Provider Valdez Abebe MD Unavailable [phone] Valdez Abebe MD Primary Care Provider Kiya Valenzuela QUANTITATIVE SOFTWARE ENGINEER Primary Care Provider Hussein Vasquez MD Unavailable Valdez Abebe MD Unavailable [phone] Hussein Vasquez MD Unavailable Kiya Valenzuela QUANTITATIVE SOFTWARE ENGINEER Primary Care Provider Kassy Cool MD Primary Care Provider + [phone] Pcp, Unknown Primary Care Provider Unavailabl e Kassy Cool MD Primary Care Provider + [phone] Encounter Details Date Type Department Care Team (Late st Contact Info) Description 04/23/2018 Procedure Pass [facility], Ct Scan - [facility] [address] [place] [address] Social History Tobacco Use Types Packs/Day Years [...] documented as of this encounter Care Teams Decorating Kiln Operator Relationship Specialty Start Date End Date Kiya Valenzuela NP [address] [place] [address] [email or web address] PCP - General Family Medicine 5/1/18 9/10/18 Valdez Abebe MD [address] [place] [address] [email or web address] PCP - General Family Medicine 06/09/18 09/02/19 Kiya Valenzuela QUANTITATIVE SOFTWARE ENGINEER [address] [place] [address] [email or web address] PCP - General Family Medicine 09/03/19 10/07/20 Kiya Valenzuela NP [address] [place] [address] [email or web address] PCP - General Family Medicine 10/08/20 04/30/21 Kassy Cool MD [address] [place] [address] [email or web address] PCP - General Family Medicine 05/01/21 01/26/22 Pcp, Unknown PCP - General 01/27/22 03/04/22 Kassy Cool MD [address] [place] [address] [email or web address] PCP - General Family Medicine 04/16/23 Valdez Abebe MD [address] [place] [address] [email or web address] Assigned Provider 05/30/18 10/29/19 Hussein Vasquez MD [address] [place] [address] [address] [place] [phone] [email or web address] Insurance Assigned Provider 10/29/19 01/05/20 Valdez Abebe MD [address] [place] [address] [email or web address] Assigned Provider 01/05/20 04/03/20 Hussein Vasquez MD [address] [place] [address] [phone] [email or web address] Assigned Provider 05/04/20 01/06/21 documented as of this encounter Additional Source Comments The information contained in this document represents components of the legal health record. It is not the complete legal health record.[facility]
--- OUTSIDE RECORDS SUMMARY | 2025-06-16 00:03 | XMS_ITS | Encounter Summary ---
Author Organization [facility] Address [address] [place] [address] Phone Care Team Providers Care Legal Collector Name Role Phone Pcp, Unknown Primary Care Provider Kassy Pollack MD Primary Care Provider [phone] Encounter Details Date Type Department Care Team (Late st Contact Info) Description 03/01/[address] [facility], Ct Scan - [address] [address] Social History Tobacco Use Types Packs/Day Years [...] 11:02 AM EDT Rosio Leavitt RN * [place] Suicide Severity Rating Scale (Screener/Recent Self-Report) Question Answer Date of Assessment Author 1. Wish to be (Past 1 Month) No 03/01/2022 11:02 AM EDT Rosio Leavitt RN 2. Non-Specific Active Suici nacho Thoughts (Past 1 Month) No 03/01/2022 11:02 AM EDT [place], [place] sey J, RN 6. Suicidal Behavior (Lifetime) No 11:02 AM EDT Rosio Leavitt RN documented as of this encounter Plan of Treatment Not on file documented as of this encounter Goals Goal Patient Goal Type Associated Problems Recent Progress Patient-Stated? Author Acute Care Plan Acute Care Plan No Raiza Mclain RN Note: 06/19/23: Resides @ [address] [place] [address] ([employer]) Dr. Cool's cell [phone] if needed Previous inpatient detox facilities: Razo Unit at [facility] is his preferred detox Formerly homeless Engage in recovery supports General No Carmen Peralta, BRICE Note: Dr. Cool states pt was in a temporary jail run by [facility] in [place] for about 1 month Oct 2020 recently but he eloped from there. It is now closed. She requests that we add to his care plan to direct him to go directly to the jail clinic to see her upon ED if he arrives here on a Friday or , call her either way if he is in the ED [phone]. Also ask pt where he is sleeping [...] documented as of this encounter Care Teams Legal Collector Relationship Specialty Start Date End Date Pcp, Unknown PCP - General 01/27/22 03/04/22 Kassy Cool MD [address] [place] [address] PCP - General Family Medicine 04/16/23 documented as of this encounter Additional Source Comments The information contained in this document represents components of the legal health record. It is not the complete legal health record.[facility]
--- OUTSIDE RECORDS SUMMARY | 2025-06-16 00:03 | XMS_ITS | Encounter Summary ---
Author Organization [facility] Address [address] [place] [address] [place] [address] Phone Care Team Providers Care Bladder Trimmer Name Role Phone Kassy Cool MD Primary Care Provider + [phone] Encounter Details Date Type Department Care Team (Late st Contact Info) Description 04/01/2022 Procedure Pass [facility], Ct Scan - [address] [address] Social History Tobacco Use Types Packs/Day Years [...] 1:20 PM EDT Shira Salomon RN * [place] Suicide Severity Rating Scale (Screener/Recent Self-Report) Question [...] Raiza Mclain, RN Note: 06/19/23: Resides @ [address] [place] [address] ([employer]) Dr. Cool's cell [phone] if needed Previous inpatient detox facilities: Razo Unit at [facility] is his preferred detox Formerly homeless Engage in recovery supports General No Carmen Peralta, BRICE Note: Dr. Cool states pt was in a temporary retirement run by [facility] in [place] for about 1 month Oct 2020 recently but he eloped from there. It is now closed. She requests that we add to his care plan to direct him to go directly to the retirement clinic to see her upon ED if he arrives here on a Friday or , call her either way if he is in the ED [phone]. Also ask pt where he is sleeping [...] documented as of this encounter Care Teams Bladder Trimmer Relationship Specialty Start Date End Date Kassy Cool MD [address] [place] [address] PCP - General Family Medicine 04/16/23 documented as of this encounter Additional Source Comments The information contained in this document represents components of the legal health record. It is not the complete legal health record.[facility]
--- OUTSIDE RECORDS SUMMARY | 2025-06-16 00:03 | XMS_ITS | Encounter Summary ---
Author Organization [facility] Address [address] [place] [address] [place] [address] Phone Care Team Providers Care Supervisor Gear Repair Name Role Phone Kassy Cool MD Primary Care Provider + [phone] Pcp, Unknown Primary Care Provider Unavailabl e Kassy Cool MD Primary Care Provider + [phone] Encounter Details Date Type Department Care Team (Late st Contact Info) Description 01/24/2022 Procedure Pass [facility], Ct Scan - [address] [address] Social History Tobacco Use Types Packs/Day Years [...] 9:39 PM EDT Tracey Wilson RN * [place] Suicide Severity Rating Scale (Screener/Recent Self-Report) [...] Raiza Mclain RN Note: 06/19/23: Resides @ [address] [place] [address] ([employer]) Dr. Cool's cell [phone] if needed Previous inpatient detox facilities: Razo Unit at [facility] is his preferred detox Formerly homeless Engage in recovery supports General No Carmen Peralta RN Note: Dr. Cool states pt was in a temporary senior care run by [facility] in [place] for about 1 month Oct 2020 recently but he eloped from there. It is now closed. She requests that we add to his care plan to direct him to go directly to the senior care clinic to see her upon ED if he arrives here on a Friday or , call her either way if he is in the ED [phone]. Also ask pt where he is sleeping [...] as of this encounter Care Teams Supervisor Gear Repair Relationship Specialty Start Date End Date Kassy Cool MD [address] [place] [address] [email or web address] PCP - General Family Medicine 05/01/21 01/26/22 Pcp, Unknown PCP - General 01/27/22 03/04/22 Kassy Cool MD [address] [place] [address] PCP - General Family Medicine 04/16/23 documented as of this encounter Additional Source Comments The information contained in this document represents components of the legal health record. It is not the complete legal health record.[facility]
--- OUTSIDE RECORDS SUMMARY | 2025-06-16 00:03 | XMS_ITS | Encounter Summary ---
Author Organization [facility] Address [address] [place] [address] Phone Care Team Providers Care Renderer Name Role Phone Pcp, Unknown Primary Care Provider Kassy Pollack MD Primary Care Provider [phone] Encounter Details Date Type Department Care Team (Late st Contact Info) Description 03/01/2022 Procedure Pass [facility], Ct Scan - [address] [address] Social History Tobacco Use Types Packs/Day Years [...] 11:02 AM EDT Rosio Leavitt RN * [place] Suicide Severity Rating Scale (Screener/Recent Self-Report) Question Answer Date of Assessment Author 1. Wish to be (Past 1 Month) No 03/01/2022 11:02 AM EDT Rosio Leavitt RN 2. Non-Specific Active Suici nacho Thoughts (Past 1 Month) No 03/01/2022 11:02 AM EDT [place], [employer] sey J, RN 6. Suicidal Behavior (Lifetime) No 11:02 AM EDT Rosio Leavitt RN documented as of this encounter Plan of Treatment Not on file documented as of this encounter Goals Goal Patient Goal Type Associated Problems Recent Progress Patient-Stated? Author Acute Care Plan Acute Care Plan No Raiza Mclain RN Note: 06/19/23: Resides @ [address] [place] [address] ([employer]) Dr. Cool's cell [phone] if needed Previous inpatient detox facilities: Razo Unit at [facility] is his preferred detox Formerly homeless Engage in recovery supports General No Carmen Peralta, BRICE Note: Dr. Cool states pt was in a temporary fci run by [facility] in [place] for about 1 month Oct 2020 recently but he eloped from there. It is now closed. She requests that we add to his care plan to direct him to go directly to the fci clinic to see her upon ED if he arrives here on a Friday or , call her either way if he is in the ED [phone]. Also ask pt where he is sleeping [...] documented as of this encounter Care Teams Renderer Relationship Specialty Start Date End Date Pcp, Unknown PCP - General 01/27/22 03/04/22 Kassy Cool MD [address] [place] [address] PCP - General Family Medicine 04/16/23 documented as of this encounter Additional Source Comments The information contained in this document represents components of the legal health record. It is not the complete legal health record.[facility]
--- OUTSIDE RECORDS SUMMARY | 2025-06-16 00:04 | XMS_ITS | Encounter Summary ---
Author Organization [facility] Address [address] [facility] 7 [place] [address] Care Team Providers Care Hosiery Pairer Name Role Phone Darrion Jackie Unavailable Unavailable Kassy Cool MD Primary Care Provider [phone] Mel Erazo Unavailable Unavailable Constance Lozada Unavailable Encounter Details Date Type Department Care Team (Late st Contact Info) Description 12/08/[address] [facility] MEDICAL [address] [place] [address] Provider, MD [place] Social History Tobacco Use [...] on filedocumented in this encounter Care Teams Hosiery Pairer Relationship Specialty Start Date End Date Kassy Cool MD [address] [place] [address] PCP - General Family Medicine 10/09/22 Jackie Maier Health Navigator Case Management 10/09/22 Mel Erazo Community Health Worker Case Management 10/30/22 Constance Lozada 02/24/25 04/29/25 documented as of this encounter
--- OUTSIDE RECORDS SUMMARY | 2025-06-16 00:04 | XMS_ITS | Encounter Summary ---
Author Organization [facility] Address [address] [place] [address] [place] [address] Phone Care Team Providers Care Tonal Regulator Name Role Phone Kassy Cool MD Primary Care Provider [phone] Pcp, Unknown Primary Care Provider UnavailKassy Jo MD Primary Care Provider + [phone] Encounter Details Date Type Department Care Team (Late st Contact Info) Description 07/17/2021 Procedure Pass [facility], Ct Scan - [address] [address] Social History Tobacco Use Types Packs/Day Years [...] Mclain, RN Note: 06/19/23: Resides @ [address] [place] [address] ([employer]) Dr. Cool's cell [phone] if needed Previous inpatient detox facilities: Razo Unit at [facility] is his preferred detox Formerly homeless Engage in recovery supports General No Yoselin Peraltaerine, RN Note: Dr. Cool states pt was in a temporary fdc run by [facility] in [place] for about 1 month Oct 2020 recently but he eloped from there. It is now closed. She requests that we add to his care plan to direct him to go directly to the fdc clinic to see her upon ED if he arrives here on a Friday or , call her either way if he is in the ED [phone]. Also ask pt where he is sleeping [...] documented as of this encounter Care Teams Tonal Regulator Relationship Specialty Start Date End Date Kassy Cool MD [address] [place] [address] PCP - General Family Medicine 05/01/21 01/26/22 Pcp, Unknown PCP - General 01/27/22 03/04/22 Kassy Cool MD [address] [place] [address] PCP - General Family Medicine 04/16/23 documented as of this encounter Additional Source Comments The information contained in this document represents components of the legal health record. It is not the complete legal health record.[facility]
--- OUTSIDE RECORDS SUMMARY | 2025-06-16 00:04 | XMS_ITS | Encounter Summary ---
Author Organization [facility] Address [address] [place] [address] [place] [address] Phone Care Team Providers Care Harbor Police Lieutenant Name Role Phone Kassy Cool MD Primary Care Provider + [phone] Pcp, Unknown Primary Care Provider Unavailabl e Kassy Cool MD Primary Care Provider + [phone] Encounter Details Date Type Department Care Team (Late st Contact Info) Description 07/21/2021 Procedure Pass [facility], Ct Scan - [address] [address] Social History Tobacco Use Types Packs/Day Years [...] 9:43 AM EDT Cindy Reyes RN * [place] Suicide Severity Rating Scale (Screener/Recent Self-Report) Question [...] Mclain, RN Note: 06/19/23: Resides @ [address] [place] [address] ([employer]) Dr. Cool's cell [phone] if needed Previous inpatient detox facilities: Razo Unit at [facility] is his preferred detox Formerly homeless Engage in recovery supports General No Carmen Peralta, BRICE Note: Dr. Cool states pt was in a temporary fpc run by [facility] in [place] for about 1 month Oct 2020 recently but he eloped from there. It is now closed. She requests that we add to his care plan to direct him to go directly to the fpc clinic to see her upon ED if he arrives here on a Friday or , call her either way if he is in the ED [phone]. Also ask pt where he is sleeping [...] documented as of this encounter Care Teams Harbor Police Lieutenant Relationship Specialty Start Date End Date Kassy Cool MD [address] [place] [address] PCP - General Family Medicine 05/01/21 01/26/22 Pcp, Unknown PCP - General 01/27/22 03/04/22 Kassy Cool MD [address] [place] [address] [email or web address] PCP - General Family Medicine 04/16/23 documented as of this encounter Additional Source Comments The information contained in this document represents components of the legal health record. It is not the complete legal health record.[facility]
--- OUTSIDE RECORDS SUMMARY | 2025-06-16 00:04 | XMS_ITS | Encounter Summary ---
Author Organization [facility] Address [address] [place] [address] [place] [address] Phone Care Team Providers Care Roving Can Tender Name Role Phone Kassy Cool MD Primary Care Provider [phone] Pcp, Unknown Primary Care Provider UnavailKassy Jo MD Primary Care Provider + [phone] Encounter Details Date Type Department Care Team (Late st Contact Info) Description 07/17/2021 Procedure Pass [facility], Ct Scan - [address] [address] Social History Tobacco Use Types Packs/Day Years [...] Raiza Mclain, RN Note: 06/19/23: Resides @ [address] [place] [address] ([email or web address]) Dr. Cool's cell [phone] if needed Previous inpatient detox facilities: Razo Unit at [facility] is his preferred detox Formerly homeless Engage in recovery supports General No Yoselin Peraltaerine, RN Note: Dr. Cool states pt was in a temporary m[facility]p run by [facility] in [place] for about 1 month Oct 2020 recently but he eloped from there. It is now closed. She requests that we add to his care plan to direct him to go directly to the mcfp clinic to see her upon ED if he arrives here on a Friday or , call her either way if he is in the ED [phone]. Also ask pt where he is sleeping [...] documented as of this encounter Care Teams Roving Can Tender Relationship Specialty Start Date End Date Kassy Cool MD [address] [place] [address] PCP - General Family Medicine 05/01/21 01/26/22 Pcp, Unknown PCP - General 01/27/22 03/04/22 Kassy Cool MD [address] [place] [address] PCP - General Family Medicine 04/16/23 documented as of this encounter Additional Source Comments The information contained in this document represents components of the legal health record. It is not the complete legal health record.[facility]
--- OUTSIDE RECORDS SUMMARY | 2025-06-16 00:04 | XMS_ITS | Encounter Summary ---
Author Organization [facility] Address [address] [place] [address] [place] [address] Phone Care Team Providers Care Farm Assistant Name Role Phone Kassy Cool MD Primary Care Provider + [phone] Pcp, Unknown Primary Care Provider Unavailabl e Kassy Cool MD Primary Care Provider + [phone] Encounter Details Date Type Department Care Team (Late st Contact Info) Description 07/15/2021 Procedure Pass [facility], Ct Scan - [address] [address] Social History Tobacco Use Types Packs/Day Years [...] 2:19 PM EDT Cindy Reyes RN * [place] Suicide Severity Rating Scale (Screener/Recent Self-Report) Question Answer Date of Assessment Author 1. Wish to be (Past 1 Month) No 021 2:19 PM EDT Cindy Reyes RN 2. Non-Specific Active Suici nacho Thoughts (Past 1 Month) No 07/15/2021 2:19 PM EDT Tong Reyes ace, BRICE 6. Suicidal Behavior (Lifetime) No 2:19 PM EDT Cindy Reyes RN documented as of this encounter Plan of Treatment Not on file documented as of this encounter Goals Goal Patient Goal Type Associated Problems Recent Progress Patient-Stated? Author Acute Care Plan Acute Care Plan No Raiza Mclain, RN Note: 06/19/23: Resides @ [address] [place] [address] ([employer]) Dr. Cool's cell [phone] if needed Previous inpatient detox facilities: Razo Unit at [facility] is his preferred detox Formerly homeless Engage in recovery supports General No Carmen Peralta, BRICE Note: Dr. Cool states pt was in a temporary long term run by [facility] in [place] for about 1 month Oct 2020 recently but he eloped from there. It is now closed. She requests that we add to his care plan to direct him to go directly to the long term clinic to see her upon ED if he arrives here on a Friday or , call her either way if he is in the ED [phone]. Also ask pt where he is sleeping [...] documented as of this encounter Care Teams Farm Assistant Relationship Specialty Start Date End Date Kassy Cool MD [address] [place] [address] PCP - General Family Medicine 05/01/21 01/26/22 Pcp, Unknown PCP - General 01/27/22 03/04/22 Kassy Cool MD [address] [place] [address] [email or web address] PCP - General Family Medicine 04/16/23 documented as of this encounter Additional Source Comments The information contained in this document represents components of the legal health record. It is not the complete legal health record.[facility]
--- OUTSIDE RECORDS SUMMARY | 2025-06-16 00:04 | XMS_ITS | Encounter Summary ---
Author Organization [facility] Address [address] [place] [address] [place] [address] Phone Care Team Providers Care Bruise Trimmer Name Role Phone Kassy Cool MD Primary Care Provider + [phone] Pcp, Unknown Primary Care Provider Unavailabl e Kassy Cool MD Primary Care Provider + [phone] Encounter Details Date Type Department Care Team (Late st Contact Info) Description 07/21/2021 Procedure Pass [facility], Ct Scan - [address] [address] Social History Tobacco Use Types Packs/Day Years [...] 9:43 AM EDT Cindy Reyes RN * [place] Suicide Severity Rating Scale (Screener/Recent Self-Report) Question [...] Raiza Mclain, RN Note: 06/19/23: Resides @ [address] [place] [address] ([employer]) Dr. Cool's cell [phone] if needed Previous inpatient detox facilities: Razo Unit at [facility] is his preferred detox Formerly homeless Engage in recovery supports General No Carmen Peralta, BRICE Note: Dr. Cool states pt was in a temporary residential run by [facility] in [place] for about 1 month Oct 2020 recently but he eloped from there. It is now closed. She requests that we add to his care plan to direct him to go directly to the residential clinic to see her upon ED if he arrives here on a Friday or , call her either way if he is in the ED [phone]. Also ask pt where he is sleeping [...] documented as of this encounter Care Teams Bruise Trimmer Relationship Specialty Start Date End Date Kassy Cool MD [address] [place] [address] PCP - General Family Medicine 05/01/21 01/26/22 Pcp, Unknown PCP - General 01/27/22 03/04/22 Kassy Cool MD [address] [place] [address] [email or web address] PCP - General Family Medicine 04/16/23 documented as of this encounter Additional Source Comments The information contained in this document represents components of the legal health record. It is not the complete legal health record.[facility]
--- OUTSIDE RECORDS SUMMARY | 2025-06-16 00:04 | XMS_ITS | Encounter Summary ---
Author Organization [facility] Address [address] [place] [address] [place] [address] Phone Care Team Providers Care Farmworker Field Crop Name Role Phone Kassy Cool MD Primary Care Provider + [phone] Pcp, Unknown Primary Care Provider Unavailabl e Kassy Cool MD Primary Care Provider + [phone] Encounter Details Date Type Department Care Team (Late st Contact Info) Description 07/28/2021 Procedure Pass [facility], Ct Scan - [address] [address] Social History Tobacco Use Types Packs/Day Years [...] 5:31 PM EDT Cindy Reyes RN * [place] Suicide Severity Rating Scale (Screener/Recent Self-Report) Question [...] Mclain, RN Note: 06/19/23: Resides @ [address] [place] [address] ([employer]) Dr. Cool's cell [phone] if needed Previous inpatient detox facilities: Razo Unit at [facility] is his preferred detox Formerly homeless Engage in recovery supports General No Carmen Peralta, BRICE Note: Dr. Cool states pt was in a temporary [place] run by [facility] in [place] for about 1 month Oct 2020 recently but he eloped from there. It is now closed. She requests that we add to his care plan to direct him to go directly to the [place] [facility] to see her upon ED if he arrives here on a Friday or , call her either way if he is in the ED [phone]. Also ask pt where he is sleeping [...] documented as of this encounter Care Teams Farmworker Field Crop Relationship Specialty Start Date End Date Kassy Cool MD [address] [place] [address] PCP - General Family Medicine 05/01/21 01/26/22 Pcp, Unknown PCP - General 01/27/22 03/04/22 Kassy Cool MD [address] [place] [address] [email or web address] PCP - General Family Medicine 04/16/23 documented as of this encounter Additional Source Comments The information contained in this document represents components of the legal health record. It is not the complete legal health record.[facility]
--- OUTSIDE RECORDS SUMMARY | 2025-06-16 00:04 | XMS_ITS | Clinical Summary ---
Author Organization [facility] Address [address] [facility] 7 [place] [address] Care Team Providers Care Staff Nurse Icu Resource Team Name Role Phone DarrionJackie Unavailable Unavailable Kasys Cool MD Primary Care Provider [phone] Mel Erazo Unavailable Unavailable Allergies Active Allergy [...] have keppra. Needs Keppra. STAT. Sent to [employer] and gave info to pt brother. Unsheltered homelessness 10/09/2022 Assessment & Plan (11/11/2022 9:54 AM EST): Wants a light blue room. Assessment & Plan (10/09/2022 10:27 AM EST): [facility] [place] Res[facility]. Opening imminently. Pt aware and agrees to placement today. He is outdoors and has absolutely no access to income. Booked to stay at [facility], so he will get at least breakfast daily. Thanks Kassy, your reservation is confirmed! We v e emailed your confirmation to There s no need to call us to reconfirm. Enjoy your stay! Itinerary number: [phone] Oncology Consultant for [facility] made aware of pt location Extreme poverty 10/09/2022 Overview (11/21/2022): Pt has no income. SSI needs to be turned back on. Working with [facility] on this. Assessment & Plan (10/09/2022 10:26 AM EST): Brought proof of release from [place]. Took copy and will fax to SSI [place] office. Patient instructed MULTIPLE times to call [employer]SI and ask for benefits to be reinstated. Pt has the phone number. Reminded that he will have a phone in his hotel room to use. 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 /Member transferred to Other:unable to reach//practice manager: Constance Lozada clinical health care coordinator) 03/30/2025 Patient Outreach [facility] Department [address] [place] [address] Lyndon Garcia 03/28/2025 Patient Outreach [facility] Department [address] [place] [address] Constance Lozada 03/23/2025 Patient Outreach [facility] Department [address] [place] [address] Lyndon Garcia 03/21/2025 Patient Outreach [facility] Department [address] [place] [address] Constance Lozada 03/21/2025 Patient Outreach [facility] Department [address] [place] [address] Constance Lozada 03/16/2025 Patient Outreach [facility] () [address] [place] [id number] Lyndon Garcia from Last 3 Months Immunizations Immunization Administration Dates Next Due Influenza injectable quadriv alent preservative free 09/14/2020,11/09/2019,07/14/2019,06/18 Influenza, IIV3, injectable 09/23/2024,1 ,05/13/2011,12/07 Nataly SARS-CoV-2 Vaccination 06/06/2021 Moderna Covid-19 Vaccine 12+ 09/23/2024,10/04/19,11/09/2020 Pneumococcal Polysaccharide PPSV23 07/09/2014 Tdap 05/30/2021,06/02/2018,01/14/2014 Tetanus [...] Diagnosis Comments CT HEAD WO CONTRAST Routine 06/15/2025 1 0:[address] CERVICAL SPINE WO CONTRAST Routine 06/15/2025 9:54 AM EDT LIPID PANEL, STANDARD Routine 12/12/2021 from Last 3 Months or Most Recently Relevant to Health Maintenance Results * CT HEAD WO CONTRAST (06/15/2025 10:15 AM EDT) Anatomical Region Laterality Modality Computed Tomogra phy Kassy Cool MD IMG CT PROCEDURES Final Result * CT Cervical Spine w/o Contrast (06/15/2025 9:54 AM EDT) Anatomical Region Laterality Modality Spine, C-spine Computed Tomogra phy Kassy Cool MD IMG CT PROCEDURES Final Result * (ABNORMAL) Lipid Panel, Standard (12/12/2021) Triglycerides 350(A) 40 - 160 mg/dL Cholesterol 169 0 - 200 mg/dL HDL Cholesterol 55 35 - 70 mg/dL LDL Cholesterol 44 mg/dL Blood Venous blood specimen / Unknown Historical Provider LAB BLOOD ORDERABLES Fiorella l Result from Last 3 Months or Most Recently Relevant to Health Maintenance [place] [address] [place] [id number] C3 Care Teams Staff Nurse Icu Resource Team Relationship Specialty Start Date End Date Kassy Cool MD [address] [place] [address] PCP - General Family Medicine 10/09/22 Jackie Maier Health Navigator Case Management 10/09/22 Mel Erazo Community Health Worker Case Management 10/30/22
--- OUTSIDE RECORDS SUMMARY | 2025-06-16 00:05 | XMS_ITS | Encounter Summary ---
Author Organization [facility] Address [address] [place] [address] [place] [address] Phone Care Team Providers Care Blending Machine Feeder Name Role Phone Kiya Valenzuela NP Primary Care Provider Hussein Vasquez MD Unavailable Kiya Valenzuela COMMERCIAL LENDER Primary Care Provider Kassy Cool MD Primary Care Provider Pcp, Unknown Primary Care Provider Unavailabl e Kassy Cool MD Primary Care Provider Encounter Details Date Type Department Care Team (Late st Contact Info) Description 05/16/2020 Procedure Pass [facility], Ct Scan - [address] [address] Social History Tobacco Use Types Packs/Day Years [...] documented as of this encounter Care Teams Blending Machine Feeder Relationship Specialty Start Date End Date Kiya Valenzuela NP [address] [place] [address] [email or web address] PCP - General Family Medicine 09/03/19 10/07/20 Kiya Valenzuela NP [address] [place] [address] [email or web address] PCP - General Family Medicine 10/08/20 04/30/21 Kassy Cool MD [address] [place] [address] [email or web address] PCP - General Family Medicine 05/01/21 01/26/22 Pcp, Unknown PCP - General 01/27/22 03/04/22 Kassy Cool MD [address] [place] [address] [email or web address] PCP - General Family Medicine 04/16/23 Hussein Vasquez MD [address] [facility] [address] [place] [address] [email or web address] [email or web address] Provider 05/04/20 01/06/21 documented as of this encounter Additional Source Comments The information contained in this document represents components of the legal health record. It is not the complete legal health record.[facility]
--- OUTSIDE RECORDS SUMMARY | 2025-06-16 00:05 | XMS_ITS | Encounter Summary ---
Author Organization [facility] Address [address] [facility] [address] [place] [address] Phone Care Team Providers Care Journalism Internship Name Role Phone Kassy Cool MD Primary Care Provider + [phone] Encounter Details Date Type Department Care Team (Late st Contact Info) Description 04/30/2025 Procedure Pass [facility], Ct Scan - [facility] [address] [place] [address] Social History Tobacco Use Types Packs/Day Years [...] 7:47 AM EDT Kinsey Platt RN * [place] Suicide Severity Rating Scale (Screener/Recent Self-Report) Question [...] Mclain, RN Note: 06/19/23: Resides @ [address] [place] [address] ([employer]) Dr. Cool's cell [phone] if needed Previous inpatient detox facilities: R[facility] Unit at [facility] is his preferred detox Formerly homeless Engage in recovery supports General No Carmen Peralta, RN Note: Dr. Cool states pt was in a temporary senior living run by [facility] in [place] for about 1 month Oct 2020 recently but he eloped from there. It is now closed. She requests that we add to his care plan to direct him to go directly to the senior living clinic to see her upon ED if he arrives here on a Friday or , call her either way if he is in the ED [phone]. Also ask pt where he is sleeping currently so she can track him down. documented as of this encounter Visit Diagnoses Not on filedocumented in this encounter Additional Health Concerns Infection Onset Date Last Indicated Resolved Time CoV-Risk 04/26/2025 04/26/2025 05/07/2025 1:21 AM EDT documented as of this encounter Care Teams Journalism Internship Relationship Specialty Start Date End Date Kassy Cool MD [address] [place] [address] [email or web address] PCP - General Family Medicine 04/16/23 documented as of this encounter Additional Source Comments The information contained in this document represents components of the legal health record. It is not the complete legal health record.[facility]
--- OUTSIDE RECORDS SUMMARY | 2025-06-16 00:05 | XMS_ITS | Encounter Summary ---
Author Organization [facility] Address [address] [facility] [address] [place] [address] Phone Care Team Providers Care Build And Release Manager Name Role Phone Kassy Cool MD Primary Care Provider + [phone] Encounter Details Date Type Department Care Team (Late st Contact Info) Description 05/06/2025 Procedure Pass [facility], Ct Scan - [facility] [address] [place] [address] Social History Tobacco Use Types Packs/Day Years [...] 8:17 AM EDT Ofelia Espinal RN * [place] Suicide Severity Rating Scale (Screener/Recent Self-Report) Question [...] Raiza Mclain, RN Note: 06/19/23: Resides @ [address] [place] [address] ([employer]) Dr. Cool's cell [phone] if needed Previous inpatient detox facilities: R[facility] Unit at [facility] is his preferred detox Formerly homeless Engage in recovery supports General No Carmen Peralta, BRICE Note: Dr. Cool states pt was in a temporary prison run by [facility] in [place] for about 1 month Oct 2020 recently but he eloped from there. It is now closed. She requests that we add to his care plan to direct him to go directly to the prison clinic to see her upon ED if he arrives here on a Friday or , call her either way if he is in the ED [phone]. Also ask pt where he is sleeping currently so she can track him down. documented as of this encounter Visit Diagnoses Not on filedocumented in this encounter Additional Health Concerns Infection Onset Date Last Indicated Resolved Time CoV-Risk 04/26/2025 04/26/2025 05/07/2025 1:21 AM EDT documented as of this encounter Care Teams Build And Release Manager Relationship Specialty Start Date End Date Kassy Cool MD [address] [place] [address] PCP - General Family Medicine 04/16/23 documented as of this encounter Additional Source Comments The information contained in this document represents components of the legal health record. It is not the complete legal health record.[facility]
--- OUTSIDE RECORDS SUMMARY | 2025-06-16 00:05 | XMS_ITS | Encounter Summary ---
Author Organization [employer] [facility] Address [address] [facility] [address] [place] [address] Care Team Providers Care Test And Turn Up Technician Name Role Phone Jackie Maier Unavailable Unavailable Kassy Cool MD Primary Care Provider [phone] Mel Erazo Unavailable Unavailable Constance Lozada Unavailable Encounter Details Date Type Department Care Team (Late st Contact Info) Description 09/06/2024 Orders Only [facility] [address] [place] [address] Kassy Cool MD [address] [place] [address] Social History Tobacco Use Types Packs/Day Years [...] on filedocumented in this encounter Care Teams Test And Turn Up Technician Relationship Specialty Start Date End Date Kassy Cool MD [address] [place] [address] PCP - General Family Medicine 10/09/22 Jackie Maier Health Navigator Case Management 10/09/22 Mel Erazo Community Health Worker Case Management 10/30/22 Constance Lozada 02/24/25 04/29/25 documented as of this encounter
--- OUTSIDE RECORDS SUMMARY | 2025-06-16 00:05 | XMS_ITS | Encounter Summary ---
Author Organization [facility] Address [address] [facility] [address] [place] [address] Phone Care Team Providers Care History Department Chair Name Role Phone Kassy Cool MD Primary Care Provider + [phone] Encounter Details Date Type Department Care Team (Late st Contact Info) Description 05/06/2025 Procedure Pass [facility], Ct Scan - [facility] [address] [place] [address] Social History Tobacco Use Types Packs/Day Years [...] 8:17 AM EDT Ofelia Espinal RN * Garza Suicide Severity Rating Scale (Screener/Recent Self-Report) Question [...] Raiza Mclain, RN Note: 06/19/23: Resides @ [address] [place] [address] ([employer]) Dr. Cool's cell [phone] if needed Previous inpatient detox facilities: [facility] at [facility] is his preferred detox Formerly homeless [facility] General No Carmen Peralta, BRICE Note: Dr. Cool states pt was in a temporary usp run by [facility] in [place] for about 1 month Oct 2020 recently but he eloped from there. It is now closed. She requests that we add to his care plan to direct him to go directly to the usp clinic to see her upon ED if he arrives here on a Friday or , call her either way if he is in the ED [phone]. Also ask pt where he is sleeping currently so she can track him down. documented as of this encounter Visit Diagnoses Not on filedocumented in this encounter Additional Health Concerns Infection Onset Date Last Indicated Resolved Time CoV-Risk 04/26/2025 04/26/2025 05/07/2025 1:21 AM EDT documented as of this encounter Care Teams History Department Chair Relationship Specialty Start Date End Date Kassy Cool MD [address] [place] [address] PCP - General Family Medicine 04/16/23 documented as of this encounter Additional Source Comments The information contained in this document represents components of the legal health record. It is not the complete legal health record.[facility]
--- OUTSIDE RECORDS SUMMARY | 2025-06-16 00:05 | XMS_ITS | Encounter Summary ---
Author Organization [facility] Address [address] [facility] [address] [place] [address] Phone Care Team Providers Care Sister Superior Name Role Phone Kassy Cool MD Primary Care Provider + [phone] Encounter Details Date Type Department Care Team (Late st Contact Info) Description 04/30/2025 Procedure Pass [facility], Ct Scan - [facility] [address] [place] [address] Social History Tobacco Use Types Packs/Day Years [...] 7:47 AM EDT Kinsey Platt RN * [place] Suicide Severity Rating Scale (Screener/Recent Self-Report) Question [...] Mclain, RN Note: 06/19/23: Resides @ [address] [place] [address] ([employer]) Dr. Cool's cell [phone] if needed Previous inpatient detox facilities: [facility] Unit at [facility] is his preferred detox Formerly homeless [facility] General No Carmen Peralta, RN Note: Dr. Cool states pt was in a temporary longterm run by [facility] in [place] for about 1 month Oct 2020 recently but he eloped from there. It is now closed. She requests that we add to his care plan to direct him to go directly to the longterm clinic to see her upon ED if he arrives here on a Friday or , call her either way if he is in the ED [phone]. Also ask pt where he is sleeping currently so she can track him down. documented as of this encounter Visit Diagnoses Not on filedocumented in this encounter Additional Health Concerns Infection Onset Date Last Indicated Resolved Time CoV-Risk 04/26/2025 04/26/2025 05/07/2025 1:21 AM EDT documented as of this encounter Care Teams Sister Superior Relationship Specialty Start Date End Date Kassy Cool MD [address] [place] [address] [email or web address] PCP - General Family Medicine 04/16/23 documented as of this encounter Additional Source Comments The information contained in this document represents components of the legal health record. It is not the complete legal health record.[facility]
--- OUTSIDE RECORDS SUMMARY | 2025-06-16 00:05 | XMS_ITS | Encounter Summary ---
Author Organization [employer] Address [address] [address] Care Team Providers Care Biscuit Factory Worker Name Role Phone Jackie Maier Unavailable Unavailable Kassy Cool MD Primary Care Provider [phone] Mel Erazo Unavailable Unavailable Constance Lozada Unavailable Reason for Visit * Reason Comments Med Change Request Encounter Details Date Type Department Care Team (Late st Contact Info) Description 08/12/2024 Refill Tariq [facility] [address] [place] [address] Kassy Cool MD [address] [place], [place] Alcohol use disorder, severe, in early [...] (CMS/HCC) documented in this encounter Care Teams [employer]uit Factory Worker Relationship Specialty Start Date End Date Kassy Cool MD [address] [place] [address] PCP - General Family Medicine 10/09/22 Jackie aMier Health Navigator Case Management 10/09/22 Mel Erazo Community Health Worker Case Management 10/30/22 Constance Lozada 02/24/25 04/29/25 documented as of this encounter
--- OUTSIDE RECORDS SUMMARY | 2025-06-16 00:05 | XMS_ITS | Encounter Summary ---
Author Organization [facility] Address [address] [place] [address] [place] [address] Phone Care Team Providers Care Hair Tinter Name Role Phone Kiya Valenzuela NP Primary Care Provider Hussein Vasquez MD Unavailable Kiya Valenzuela NP Primary Care Provider Kassy Cool MD Primary Care Provider Pcp, Unknown Primary Care Provider Unavailabl e Kassy Cool MD Primary Care Provider Encounter Details Date Type Department Care Team (Late st Contact Info) Description 06/11/2020 Procedure Pass [facility], Ct Scan - [address] [address] Social History Tobacco Use Types Packs/Day Years [...] documented as of this encounter Care Teams Hair Tinter Relationship Specialty Start Date End Date Kiya Valenzuela NP [address] [place] [address] [email or web address] PCP - General Family Medicine 09/03/19 10/07/20 Kiya Valenzuela NP [address] [place] [address] [email or web address] PCP - General Family Medicine 10/08/20 04/30/21 Kassy Cool MD [address] [place] [address] [email or web address] PCP - General Family Medicine 05/01/21 01/26/22 Pcp, Unknown PCP - General 01/27/22 03/04/22 Kassy Cool MD [address] [place] [address] [email or web address] PCP - General Family Medicine 04/16/23 Hussein Vasquez MD [address] [facility] [address] [place] [address] [email or web address] Assigned Provider 05/04/20 01/06/21 documented as of this encounter Additional Source Comments The information contained in this document represents components of the legal health record. It is not the complete legal health record.[facility]
--- OUTSIDE RECORDS SUMMARY | 2025-06-16 00:05 | XMS_ITS | Encounter Summary ---
Author Organization [facility] Address [address] [facility] 7 [place] [address] Care Team Providers Care Admissions Evaluator Name Role Phone Jcakie Maier Unavailable Unavailable Kassy Cool MD Primary Care Provider [phone] Mel Erazo Unavailable Unavailable Constance Lozada Unavailable Encounter Details Date Type Department Care Team (Late st Contact Info) Description 09/27/2024 Orders Only Tariq [facility] [address] [place] [address] Kassy Cool MD [address] [place] [address] Chronic pain syndrome; Nonintractable generalized idiopathic epilepsy [...] sciatica documented in this encounter Care Teams Admissions Evaluator Relationship Specialty Start Date End Date Kassy Cool MD [address] [place] [address] PCP - General Family Medicine 10/09/22 Jackie Maier Health Navigator Case Management 10/09/22 Mel Erazo Community Health Worker Case Management 10/30/22 Constance Lozada 02/24/25 04/29/25 documented as of this encounter
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
--- OUTSIDE RECORDS SUMMARY | 2025-06-16 00:05 | XMS_ITS | Encounter Summary ---
Author Organization [facility] Address [address] [place] [address] [place] [address] Phone Care Team Providers Care Advanced Practice Psychiatric Nurse Name Role Phone Kiya Valenzuela NP Primary Care Provider Hussein Vasquez MD Unavailable Kiya Valenzuela NP Primary Care Provider Kassy Cool MD Primary Care Provider Pcp, Unknown Primary Care Provider Unavailabl e Kassy Cool MD Primary Care Provider Encounter Details Date Type Department Care Team (Late st Contact Info) Description 06/11/2020 Procedure Pass [facility], Ct Scan - [address] [address] Social History Tobacco Use Types Packs/Day Years [...] documented as of this encounter Care Teams Advanced Practice Psychiatric Nurse Relationship Specialty Start Date End Date Kiya Valenzuela NP [address] [place] [address] [email or web address] PCP - General Family Medicine 09/03/19 10/07/20 Kiya Valenzuela NP [address] [place] [address] [email or web address] PCP - General Family Medicine 10/08/20 04/30/21 Kassy Cool MD [address] [place] [address] [email or web address] PCP - General Family Medicine 05/01/21 01/26/22 Pcp, Unknown PCP - General 01/27/22 03/04/22 Kassy Cool MD [address] [place] [address] [email or web address] PCP - General Family Medicine 04/16/23 Hussein Vasquez MD [address] [facility] [address] [place] [address] [email or web address] Assigned Provider 05/04/20 01/06/21 documented as of this encounter Additional Source Comments The information contained in this document represents components of the legal health record. It is not the complete legal health record.[facility]
--- OUTSIDE RECORDS SUMMARY | 2025-06-16 00:05 | XMS_ITS | Encounter Summary ---
Author Organization [employer] Address [address] [facility] [address] [place] [address] Care Team Providers Care Abrasive Water Jet Cutter Operator Name Role Phone DarrionJackie harper Unavailable Unavailable Kassy Cool MD Primary Care Provider [phone] Mel Erazo Unavailable Unavailable Constance Lozada Unavailable Encounter Details Date Type Department Care Team (Late st Contact Info) Description 08/27/2024 Orders Only [facility] [address] [place] [address] Kassy Cool MD [address] [place] [address] Social History Tobacco Use Types Packs/Day Years [...] on filedocumented in this encounter Care Teams Abrasive Water Jet Cutter Operator Relationship Specialty Start Date End Date Kassy Cool MD [address] [place] [address] PCP - General Family Medicine 10/09/22 Jackie Maier Health Navigator Case Management 10/09/22 Mel Erazo Community Health Worker Case Management 10/30/22 Constance Lozada 02/24/25 04/29/25 documented as of this encounter
--- OUTSIDE RECORDS SUMMARY | 2025-06-16 00:05 | XMS_ITS | Encounter Summary ---
Author Organization [facility] Address [address] [place] [address] [place] [address] Phone Care Team Providers Care Tele Rn Name Role Phone Kiya Valenzuela NP Primary Care Provider Hussein Vasquez MD Unavailable Kiya Valenzuela AIRCRAFT DESIGNER Primary Care Provider Kassy Cool MD Primary Care Provider [phone] Pcp, Unknown Primary Care Provider Unavailabl e Kassy Cool MD Primary Care Provider Encounter Details Date Type Department Care Team (Late st Contact Info) Description 05/16/2020 Procedure Pass [facility], Ct Scan - [address] [address] Social History Tobacco Use Types Packs/Day Years [...] documented as of this encounter Care Teams Tele Rn Relationship Specialty Start Date End Date Kiya Valenzuela NP [address] [place] [address] [email or web address] PCP - General Family Medicine 09/03/19 10/07/20 Kiya Valenzuela NP [address] [place] [address] [email or web address] PCP - General Family Medicine 10/08/20 04/30/21 Kassy Cool MD 70 [place] [address] [email or web address] PCP - General Family Medicine 05/01/21 01/26/22 Pcp, Unknown PCP - General 01/27/22 03/04/22 Kassy Cool MD 70 [place] [address] PCP - General Family Medicine 04/16/23 Hussein Vasquez MD 230 [facility] [address] [place] [address] [email or web address] Assigned Provider 05/04/20 01/06/21 documented as of this encounter Additional Source Comments The information contained in this document represents components of the legal health record. It is not the complete legal health record.[facility]
--- OUTSIDE RECORDS SUMMARY | 2025-06-16 00:06 | XMS_ITS | Encounter Summary ---
Author Organization [facility] Address [address] [place] [address] [place] [address] Phone Care Team Providers Care Manager Valuation Name Role Phone Kassy Cool MD Primary Care Provider + [phone] Encounter Details Date Type Department Care Team (Late st Contact Info) Description 06/14/2023 Procedure Pass [facility], Ct Scan - [address] [address] Social History Tobacco Use Types Packs/Day Years [...] 06/15/2023 6:50 AM EDT Taylor CaputoBRICE * [place] Suicide Severity Rating Scale (Screener/Recent Self-Report) Question [...] Mclain RN Note: 06/19/23: Resides @ [address] [place] [address] ([employer]) Dr. Cool's cell [phone] if needed Previous inpatient detox facilities: [facility] is his preferred detox Formerly homeless Engage in recovery supports General No Carmen Peralta RN Note: Dr. Cool states pt was in a temporary senior care run by [facility] in [place] for about 1 month Oct 2020 recently but he eloped from there. It is now closed. She requests that we add to his care plan to direct him to go directly to the senior care clinic to see her upon ED if he arrives here on a Friday or , call her either way if he is in the ED [phone]. Also ask pt where he is sleeping [...] as of this encounter Care Teams Manager Valuation Relationship Specialty Start Date End Date Kassy Cool MD 70 [place] [address] [email or web address] PCP - General Family Medicine 04/16/23 documented as of this encounter Additional Source Comments The information contained in this document represents components of the legal health record. It is not the complete legal health record.[facility]
--- OUTSIDE RECORDS SUMMARY | 2025-06-16 00:06 | XMS_ITS | Encounter Summary ---
Author Organization [facility] Address [address] [place] [address] [place] [address] Phone Care Team Providers Care Wood Grinder Name Role Phone Kassy Cool MD Primary Care Provider + [phone] Encounter Details Date Type Department Care Team (Late st Contact Info) Description 06/14/2023 Procedure Pass [facility], Ct Scan - [address] [address] Social History Tobacco Use Types Packs/Day Years [...] 06/15/2023 6:50 AM EDT Taylor CaputoBRICE * [place] Suicide Severity Rating Scale (Screener/Recent Self-Report) Question [...] Raiza Mclain RN Note: 06/19/23: Resides @ [address] [place] [address] ([employer]) Dr. Cool's cell [phone] if needed Previous inpatient detox facilities[place] [facility] is his preferred detox Formerly homeless Engage in recovery supports General No Carmen Peralta RN Note: Dr. Cool states pt was in a temporary custodial run by [facility] in [place] for about 1 month Oct 2020 recently but he eloped from there. It is now closed. She requests that we add to his care plan to direct him to go directly to the custodial clinic to see her upon ED if he arrives here on a Friday or , call her either way if he is in the ED [phone]. Also ask pt where he is sleeping [...] documented as of this encounter Care Teams Wood Grinder Relationship Specialty Start Date End Date Kassy Cool MD [address] [place] [address] [email or web address] PCP - General Family Medicine 04/16/23 documented as of this encounter Additional Source Comments The information contained in this document represents components of the legal health record. It is not the complete legal health record.[facility]
--- OUTSIDE RECORDS SUMMARY | 2025-06-16 00:06 | XMS_ITS | Encounter Summary ---
Author Organization [facility] Address [address] [place] [address] [place] [address] Phone Care Team Providers Care Foam Rubber Curer Name Role Phone Kassy Cool MD Primary Care Provider + [phone] Encounter Details Date Type Department Care Team (Late st Contact Info) Description 05/24/2023 Procedure Pass [facility], Ct Scan - [address] [address] Social History Tobacco Use Types Packs/Day Years [...] EDT Janay weinberg, Cathie Atkinson RN * [place] Suicide Severity Rating Scale (Screener/Recent Self-Report) Question [...] Raiza Mclain RN Note: 06/19/23: Resides @ [address] [place] [address] ([employer]) Dr. Cool's cell [phone] if needed Previous inpatient detox facilities: [facility] is his preferred detox Formerly homeless Engage in recovery supports General No Carmen Peralta RN Note: Dr. Cool states pt was in a temporary mcc run by [facility] in [place] for about 1 month Oct 2020 recently but he eloped from there. It is now closed. She requests that we add to his care plan to direct him to go directly to the mcc clinic to see her upon ED if he arrives here on a Friday or , call her either way if he is in the ED [phone]. Also ask pt where he is sleeping [...] documented as of this encounter Care Teams Foam Rubber Curer Relationship Specialty Start Date End Date Kassy Cool MD 70 [place] [address] [email or web address] PCP - General Family Medicine 04/16/23 documented as of this encounter Additional Source Comments The information contained in this document represents components of the legal health record. It is not the complete legal health record.[facility]
--- OUTSIDE RECORDS SUMMARY | 2025-06-16 00:06 | XMS_ITS | Encounter Summary ---
Author Organization [facility] Address [address] [place] [address] [place] [address] Phone Care Team Providers Care Senior Microsoft Net Developer Name Role Phone Kiya Valenzuela NP Primary Care Provider Hussein Vasquez MD Unavailable Kiya Valenzuela CARGO AND CONTAINER INSPECTOR Primary Care Provider Kassy Cool MD Primary Care Provider Pcp, Unknown Primary Care Provider Unavailabl e Kassy Cool MD Primary Care Provider Encounter Details Date Type Department Care Team (Late st Contact Info) Description 05/15/2020 Procedure Pass [facility], Ct Scan - [address] [address] Social History Tobacco Use Types Packs/Day Years [...] as of this encounter Care Teams Senior Microsoft Net Developer Relationship Specialty Start Date End Date Kiya Valenzuela NP [address] [place] [address] PCP - General Family Medicine 09/03/19 10/07/20 Kiya Valenzuela NP [address] [place] [address] PCP - General Family Medicine 10/08/20 04/30/21 Kassy Cool MD 70 [place] [address] [email or web address] PCP - General Family Medicine 05/01/21 01/26/22 Pcp, Unknown PCP - General 01/27/22 03/04/22 Kassy Cool MD 70 [place] [address] [email or web address] PCP - General Family Medicine 04/16/23 Hussein Vasquez MD 230 [facility] [address] [place] [address] Insurance Assigned Provider 05/04/20 01/06/21 documented as of this encounter Additional Source Comments The information contained in this document represents components of the legal health record. It is not the complete legal health record.[facility]
--- OUTSIDE RECORDS SUMMARY | 2025-06-16 00:06 | XMS_ITS | Encounter Summary ---
Author Organization [facility] Address [address] [place] [address] [place] [address] Phone Care Team Providers Care Body Mechanic Apprentice Name Role Phone Kassy Cool MD Primary Care Provider + [phone] Encounter Details Date Type Department Care Team (Late st Contact Info) Description 05/23/2023 Procedure Pass [facility] [address] [place] [address] Social History Tobacco Use Types Packs/Day Years [...] EDT Janay weinberg, Cathie Atkinson RN * [place] Suicide Severity Rating Scale (Screener/Recent Self-Report) Question [...] Raiza Mclain RN Note: 06/19/23: Resides @ [address] [place] [address] ([employer]) Dr. Cool's cell [phone] if needed Previous inpatient detox facilities: [facility] is his preferred detox Formerly homeless Engage in recovery supports General No Carmen Peralta RN Note: Dr. Cool states pt was in a temporary long-term run [facility] in [place] for about 1 month Oct 2020 recently but he eloped from there. It is now closed. She requests that we add to his care plan to direct him to go directly to the long-term clinic to see her upon ED if he arrives here on a Friday or , call her either way if he is in the ED [phone]. Also ask pt where he is sleeping [...] documented as of this encounter Care Teams Body Mechanic Apprentice Relationship Specialty Start Date End Date Kassy Cool MD 70 [place] [address] [email or web address] PCP - General Family Medicine 04/16/23 documented as of this encounter Additional Source Comments The information contained in this document represents components of the legal health record. It is not the complete legal health record.[facility]
--- OUTSIDE RECORDS SUMMARY | 2025-06-16 00:06 | XMS_ITS | Encounter Summary ---
Author Organization [facility] Address [address] [place] [address] [place] [address] Phone Care Team Providers Care Electric Pile Driver Operator Name Role Phone Kassy Cool MD Primary Care Provider + [phone] Encounter Details Date Type Department Care Team (Late st Contact Info) Description 06/19/2023 Procedure Pass [facility] 30 [place] [address] Social History Tobacco Use Types Packs/Day Years [...] 12:24 AM EDT Lianet Waller RN * [place] Suicide Severity Rating Scale [...] Mclain RN Note: 06/19/23: Resides @ [address] [place] [address] ([employer]) Dr. Cool's cell [phone] if needed Previous inpatient detox facilities[place] [facility] is his preferred detox Formerly homeless Engage in recovery supports General No Carmen Peralta RN Note: Dr. Cool states pt was in a temporary alf run by [facility] in [place] for about 1 month Oct 2020 recently but he eloped from there. It is now closed. She requests that we add to his care plan to direct him to go directly to the alf clinic to see her upon ED if he arrives here on a Friday or , call her either way if he is in the ED [phone]. Also ask pt where he is sleeping [...] documented as of this encounter Care Teams Electric Pile Driver Operator Relationship Specialty Start Date End Date Kassy Cool MD 70 [place] [address] [email or web address] PCP - General Family Medicine 04/16/23 documented as of this encounter Additional Source Comments The information contained in this document represents components of the legal health record. It is not the complete legal health record.[facility]
--- OUTSIDE RECORDS SUMMARY | 2025-06-16 00:06 | XMS_ITS | Encounter Summary ---
Author Organization [facility] Address [address] [place] [address] [place] [address] Phone Care Team Providers Care Wet Process Assistant Head Miller Name Role Phone Kassy Cool MD Primary Care Provider + [phone] Encounter Details Date Type Department Care Team (Late st Contact Info) Description 04/16/2023 Procedure Pass [facility], Ct Scan - [facility] 30 [place] [address] Social History Tobacco Use Types Packs/Day Years [...] 9:21 AM EDT Nusrat Smalls, RN * [place] Suicide Severity Rating Scale (Screener/Recent Self-Report) Question [...] Mclain RN Note: 06/19/23: Resides @ [address] [place] [address] ([employer]) Dr. Cool's cell [phone] if needed Previous inpatient detox facilities: [facility] is his preferred detox Formerly homeless Engage in recovery supports General No Carmen Peralta RN Note: Dr. Cool states pt was in a temporary jail run by [facility] in [place] for about 1 month Oct 2020 recently but he eloped from there. It is now closed. She requests that we add to his care plan to direct him to go directly to the jail clinic to see her upon ED if he arrives here on a Friday or , call her either way if he is in the ED [phone]. Also ask pt where he is sleeping [...] documented as of this encounter Care Teams Wet Process Assistant Head Miller Relationship Specialty Start Date End Date Kassy Cool MD 70 [place] [address] [email or web address] PCP - General Family Medicine 04/16/23 documented as of this encounter Additional Source Comments The information contained in this document represents components of the legal health record. It is not the complete legal health record.[facility]
--- OUTSIDE RECORDS SUMMARY | 2025-06-16 00:06 | XMS_ITS | Encounter Summary ---
Author Organization [facility] Address [address] [place] [address] [place] [address] Phone Care Team Providers Care Instrument Maker Apprentice Name Role Phone Kiya Valenzuela NP Primary Care Provider Hussein Vasquez MD Unavailable Kiya Valenzuela MANAGER MISSION Primary Care Provider Kassy Cool MD Primary Care Provider Pcp, Unknown Primary Care Provider Unavailabl e Kassy Cool MD Primary Care Provider Encounter Details Date Type Department Care Team (Late st Contact Info) Description 05/15/2020 Procedure Pass [facility], Ct Scan - [address] [address] Social History Tobacco Use Types Packs/Day Years [...] documented as of this encounter Care Teams Instrument Maker Apprentice Relationship Specialty Start Date End Date Kiya Valenzuela NP 70 [place] [address] [email or web address] PCP - General Family Medicine 09/03/19 10/07/20 Kiya Valenzuela NP 70 [place] [address] [email or web address] PCP - General Family Medicine 10/08/20 04/30/21 Kassy Cool MD 70 [place] [address] [email or web address] PCP - General Family Medicine 05/01/21 01/26/22 Pcp, Unknown PCP - General 01/27/22 03/04/22 Kassy Cool MD 70 [place] [address] PCP - General Family Medicine 04/16/23 Hussein Vasquez MD 230 [facility] [address] [place] [address] [email or web address] Insurance Assigned Provider 05/04/20 01/06/21 documented as of this encounter Additional Source Comments The information contained in this document represents components of the legal health record. It is not the complete legal health record.[facility]
--- OUTSIDE RECORDS SUMMARY | 2025-06-16 00:06 | XMS_ITS | Encounter Summary ---
Author Organization [facility] Address [address] [place] [address] [place] [address] Phone Care Team Providers Care Mining Machinery Assembler Name Role Phone Kassy Cool MD Primary Care Provider + [phone] Encounter Details Date Type Department Care Team (Late st Contact Info) Description 04/16/2023 Procedure Pass [facility], Ct Scan - [facility] 30 [place] [address] Social History Tobacco Use Types Packs/Day Years [...] 9:21 AM EDT Nusrat Smalls, RN * [place] Suicide Severity Rating Scale (Screener/Recent Self-Report) Question [...] Raiza Mclain RN Note: 06/19/23: Resides @ [address] [place] [address] ([employer]) Dr. Cool's cell [phone] if needed Previous inpatient detox facilities: [facility] is his preferred detox Formerly homeless Engage in recovery supports General No Carmen Peralta RN Note: Dr. Cool states pt was in a temporary fdc run by [facility] in [place] for about 1 month Oct 2020 recently but he eloped from there. It is now closed. She requests that we add to his care plan to direct him to go directly to the fdc clinic to see her upon ED if he arrives here on a Friday or , call her either way if he is in the ED [phone]. Also ask pt where he is sleeping [...] documented as of this encounter Care Teams Mining Machinery Assembler Relationship Specialty Start Date End Date Kassy Cool MD 70 [place] [address] [email or web address] PCP - General Family Medicine 04/16/23 documented as of this encounter Additional Source Comments The information contained in this document represents components of the legal health record. It is not the complete legal health record.[facility]
--- OUTSIDE RECORDS SUMMARY | 2025-06-16 00:06 | XMS_ITS | Encounter Summary ---
Author Organization [facility] Address [address] [place] [address] [place] [address] Phone Care Team Providers Care Electrical Hardware Engineer Name Role Phone Kassy Cool MD Primary Care Provider + [phone] Encounter Details Date Type Department Care Team (Late st Contact Info) Description 05/23/2023 Procedure Pass [facility], Ct Scan - [address] [address] Social History Tobacco Use Types Packs/Day Years [...] EDT Janay weinberg, Cathie Atkinson RN * [place] Suicide Severity Rating Scale (Screener/Recent Self-Report) Question [...] Mclain RN Note: 06/19/23: Resides @ [address] [place] [address] ([employer]) Dr. Cool's cell [phone] if needed Previous inpatient detox facilities: [facility] is his preferred detox Formerly homeless Engage in recovery supports General No Carmen Peralta RN Note: Dr. Cool states pt was in a temporary half-way run by [facility] in [place] for about 1 month Oct 2020 recently but he eloped from there. It is now closed. She requests that we add to his care plan to direct him to go directly to the half-way clinic to see her upon ED if he arrives here on a Friday or , call her either way if he is in the ED [phone]. Also ask pt where he is sleeping [...] documented as of this encounter Care Teams Electrical Hardware Engineer Relationship Specialty Start Date End Date Kassy Cool MD 70 [place] [address] [email or web address] PCP - General Family Medicine 04/16/23 documented as of this encounter Additional Source Comments The information contained in this document represents components of the legal health record. It is not the complete legal health record.[facility]
--- OUTSIDE RECORDS SUMMARY | 2025-06-16 00:07 | XMS_ITS | Encounter Summary ---
Author Organization [facility] Address [address] [facility] [address] [place] [address] Phone Care Team Providers Care Media Job Titles Name Role Phone Kassy Cool MD Primary Care Provider + [phone] Encounter Details Date Type Department Care Team (Late st Contact Info) Description 04/01/2024 Procedure Pass [facility], Ct Scan - [facility] 30 [place] [address] Social History Tobacco Use Types Packs/Day Years [...] 10:11 AM EDT Piedad Shields RN * [place] Suicide Severity Rating Scale (Screener/Recent Self-Report) Question Answer Date of Assessment Author 1. Wish to be (Past 1 Month) No 024 10:11 AM EDT Piedad Shields RN 2. Non-Specific Active Suici nacho Thoughts (Past 1 Month) No 04/01/2024 10:11 AM EDT Jena Paul Shields RN 6. Suicidal Behavior (Lifetime) No 10:11 AM EDT Piedad Shields RN documented as of this encounter Plan of Treatment Not on file documented as of this encounter Goals Goal Patient Goal Type Associated Problems Recent Progress Patient-Stated? Author Acute Care Plan Acute Care Plan No Raiza Mclain, RN Note: 06/19/23: Resides @ [address] [place] [address] ([employer]) Dr. Cool's cell [phone] if needed Previous inpatient detox facilities[place] [facility] is his preferred detox Formerly homeless Engage in recovery supports General No Carmen Peralta, RN Note: Dr. Cool states pt was in a temporary long-term run by [facility] in [place] for about 1 month Oct 2020 recently but he eloped from there. It is now closed. She requests that we add to his care plan to direct him to go directly to the long-term clinic to see her upon ED if he arrives here on a Friday or , call her either way if he is in the ED [phone]. Also ask pt where he is sleeping currently so she can track him down. documented as of this encounter Visit Diagnoses Not on filedocumented in this encounter Additional Health Concerns Infection Onset Date Last Indicated Resolved Time CoV-Risk 04/01/2024 04/01/2024 04/12/2024 1:21 AM EDT CoV-Risk 04/26/2025 04/26/2025 05/07/2025 1:21 AM EDT documented as of this encounter Care Teams Media Job Titles Relationship Specialty Start Date End Date Kassy Cool MD 70 [place] [address] [email or web address] PCP - General Family Medicine 04/16/23 documented as of this encounter Additional Source Comments The information contained in this document represents components of the legal health record. It is not the complete legal health record.[facility]
--- OUTSIDE RECORDS SUMMARY | 2025-06-16 00:07 | XMS_ITS | Encounter Summary ---
Author Organization [facility] Address [address] [place] [address] [place] [address] Phone Care Team Providers Care Chaplain Name Role Phone Hussein Vasquez MD Unavailable Kiya Valenzuela NP Primary Care Provider Kassy Cool MD Primary Care Provider [phone] Pcp, Unknown Primary Care Provider Unavailabl e Kassy Cool MD Primary Care Provider [phone] Encounter Details Date Type Department Care Team (Late st Contact Info) Description 10/19/2020 Procedure Pass [facility], Ct Scan - [address] [address] Social History Tobacco Use Types Packs/Day Years [...] 10/22/2020 3:57 PM Pippa Cortes, BRICE * [place] Suicide Severity Rating Scale (Screener/Recent Self-Report) Question [...] documented as of this encounter Care Teams Chaplain Relationship Specialty Start Date End Date Kiya Valenzuela NP [address] [place] [address] [email or web address] PCP - General Family Medicine 10/08/20 04/30/21 Kassy Cool MD [address] [place] [address] [email or web address] PCP - General Family Medicine 05/01/21 01/26/22 Pcp, Unknown PCP - General 01/27/22 03/04/22 Kassy Cool MD [address] [place] [address] [email or web address] PCP - General Family Medicine 04/16/23 Husseni Vasquez MD [address] [facility] [address] [place] [address] [email or web address] Insurance Assigned Provider 05/04/20 01/06/21 documented as of this encounter Additional Source Comments The information contained in this document represents components of the legal health record. It is not the complete legal health record.[facility]
--- OUTSIDE RECORDS SUMMARY | 2025-06-16 00:07 | XMS_ITS | Encounter Summary ---
Author Organization [facility] Address [address] [place] [address] [place] [address] Phone Care Team Providers Care Vertical Boring Mill Operator Name Role Phone Kiya Valenzuela VISUAL MERCHANDISING SPECIALIST Primary Care Provider Hussein Vasquez MD Unavailable Kiya Valenzuela VISUAL MERCHANDISING SPECIALIST Primary Care Provider Kassy Cool MD Primary Care Provider Pcp, Unknown Primary Care Provider Unavailabl e Kassy Cool MD Primary Care Provider Encounter Details Date Type Department Care Team (Late st Contact Info) Description 08/20/2020 Procedure Pass [facility], Ct Scan - [address] [address] Social History Tobacco Use Types Packs/Day Years [...] Indicated 08/23/2020 12:57 PM Patti Sheikh * [place] Suicide Severity Rating Scale (Screener/Recent Self-Report) Question [...] documented as of this encounter Care Teams Vertical Boring Mill Operator Relationship Specialty Start Date End Date Kiya Valenzuela NP [address] [place] [address] [email or web address] PCP - General Family Medicine 09/03/19 10/07/20 Kiya Valenzuela NP [address] [place] [address] [email or web address] PCP - General Family Medicine 10/08/20 04/30/21 Kassy Cool MD [address] [place] [address] [email or web address] PCP - General Family Medicine 05/01/21 01/26/22 Pcp, Unknown PCP - General 01/27/22 03/04/22 Kassy Cool MD [address] [place] [address] [email or web address] PCP - General Family Medicine 04/16/23 Hussein Vasquez MD [address] [place] [address] [address] [place] [address] [email or web address] Assigned Provider 05/04/20 01/06/21 documented as of this encounter Additional Source Comments The information contained in this document represents components of the legal health record. It is not the complete legal health record.[facility]
--- OUTSIDE RECORDS SUMMARY | 2025-06-16 00:07 | XMS_ITS | Encounter Summary ---
Author Organization [facility] Address [address] [facility] [address] [place] [address] Phone Care Team Providers Care Manager Business Intelligence Name Role Phone Kassy Cool MD Primary Care Provider + [phone] Encounter Details Date Type Department Care Team (Late st Contact Info) Description 08/22/2024 Procedure Pass [facility], Ct Scan - [facility] 30 [place] [address] Social History Tobacco Use Types Packs/Day Years [...] 08/25/2024 5:10 PM Arielle Danielson RN * [place] Suicide Severity Rating Scale (Screener/Recent Self-Report) Question [...] Raiza Mclain RN Note: 06/19/23: Resides @ [address] [place] [address] ([employer]) Dr. Cool's cell [phone] if needed Previous inpatient detox facilities[place] [facility] is his preferred detox Formerly homeless Engage in recovery supports General No Carmen Peralta, RN Note: Dr. Cool states pt was in a temporary half-way run by [facility] in [place] for about 1 month Oct 2020 recently but he eloped from there. It is now closed. She requests that we add to his care plan to direct him to go directly to the half-way clinic to see her upon ED if he arrives here on a Friday or , call her either way if he is in the ED [phone]. Also ask pt where he is sleeping currently so she can track him down. documented as of this encounter Visit Diagnoses Not on filedocumented in this encounter Additional Health Concerns Infection Onset Date Last Indicated Resolved Time CoV-Risk 04/26/2025 04/26/2025 05/07/2025 1:21 AM EDT documented as of this encounter Care Teams Manager Business Intelligence Relationship Specialty Start Date End Date Kassy Cool MD [address] [place] [address] [email or web address] PCP - General Family Medicine 04/16/23 documented as of this encounter Additional Source Comments The information contained in this document represents components of the legal health record. It is not the complete legal health record.[facility]
--- OUTSIDE RECORDS SUMMARY | 2025-06-16 00:07 | XMS_ITS | Encounter Summary ---
Author Organization [facility] Address [address] [place] [address] [place] [address] Phone Care Team Providers Care Battery Charger Conveyor Line Name Role Phone Kiya Valenzuela NP Primary Care Provider Hussein Vasquez MD Unavailable Kiya Valenzuela NP Primary Care Provider Kassy Cool MD Primary Care Provider [phone] Pcp, Unknown Primary Care Provider Unavailabl e Kassy Cool MD Primary Care Provider Encounter Details Date Type Department Care Team (Late st Contact Info) Description 06/24/2020 Procedure Pass [facility], Ct Scan - [address] [address] Social History Tobacco Use Types Packs/Day Years [...] documented as of this encounter Care Teams Battery Charger Conveyor Line Relationship Specialty Start Date End Date Kiya Valenzuela NP [address] [place] [address] [email or web address] PCP - General Family Medicine 09/03/19 10/07/20 Kiya Valenzuela NP [address] [place] [address] [email or web address] PCP - General Family Medicine 10/08/20 04/30/21 Kassy Cool MD [address] [place] [address] [email or web address] PCP - General Family Medicine 05/01/21 01/26/22 Pcp, Unknown PCP - General 01/27/22 03/04/22 Kassy Cool MD [address] [place] [address] [email or web address] PCP - General Family Medicine 04/16/23 Hussein Vasquez MD [address] [facility] [address] [place] [address] [email or web address] Assigned Provider 05/04/20 01/06/21 documented as of this encounter Additional Source Comments The information contained in this document represents components of the legal health record. It is not the complete legal health record.[facility]
--- OUTSIDE RECORDS SUMMARY | 2025-06-16 00:07 | XMS_ITS | Encounter Summary ---
Author Organization [facility] Address [address] [facility] [address] [place] [address] Phone Care Team Providers Care Sweet Potato Disintegrator Name Role Phone Kassy Cool MD Primary Care Provider + [phone] Encounter Details Date Type Department Care Team (Late st Contact Info) Description 04/01/2024 Procedure Pass [facility], Ct Scan - [facility] 30 [place] [address] Social History Tobacco Use Types Packs/Day Years [...] 10:11 AM EDT Piedad Shields RN * [place] Suicide Severity Rating Scale (Screener/Recent Self-Report) Question [...] Raiza Mclain, RN Note: 06/19/23: Resides @ [address] [place] [address] ([employer]) Dr. Cool's cell [phone] if needed Previous inpatient detox facilities: [facility] at [facility] is his preferred detox Formerly homeless Engage in recovery supports General No Carmen Peralta, RN Note: Dr. Cool states pt was in a temporary [facility] [place] for about 1 month Oct 2020 recently but he eloped from there. It is now closed. She requests that we add to his care plan to direct him to go directly to the senior care clinic to see her upon ED if he arrives here on a Friday or , call her either way if he is in the ED [phone]. Also ask pt where he is sleeping currently so she can track him down. documented as of this encounter Visit Diagnoses Not on filedocumented in this encounter Additional Health Concerns Infection Onset Date Last Indicated Resolved Time CoV-Risk 04/01/2024 04/01/2024 04/12/2024 1:21 AM EDT CoV-Risk 04/26/2025 04/26/2025 05/07/2025 1:21 AM EDT documented as of this encounter Care Teams Sweet Potato Disintegrator Relationship Specialty Start Date End Date Kassy Cool MD [address] [place] [address] [email or web address] PCP - General Family Medicine 04/16/23 documented as of this encounter Additional Source Comments The information contained in this document represents components of the legal health record. It is not the complete legal health record.[facility]
--- OUTSIDE RECORDS SUMMARY | 2025-06-16 00:07 | XMS_ITS | Encounter Summary ---
Author Organization [facility] Address [address] [place] [address] [place] [address] Phone Care Team Providers Care Shuttle Veneering Supervisor Name Role Phone Hussein Vasquez MD Unavailable Kiya Valenzuela NP Primary Care Provider Kassy Cool MD Primary Care Provider Pcp, Unknown Primary Care Provider Unavailabl Kassy Whitley MD Primary Care Provider [phone] Encounter Details Date Type Department Care Team (Late st Contact Info) Description 10/08/2020 Procedure Pass [facility] 30 [place] [address] Social History Tobacco Use Types Packs/Day Years [...] 10/08/2020 10:02 AM Olena Ngo, RN * [place] Suicide Severity Rating Scale (Screener/Recent Self-Report) Question [...] documented as of this encounter Care Teams Shuttle Veneering Supervisor Relationship Specialty Start Date End Date Kiya Valenzuela NP [address] [place] [address] [email or web address] PCP - General Family Medicine 10/08/20 04/30/21 Kassy Cool MD [address] [place] [address] [email or web address] PCP - General Family Medicine 05/01/21 01/26/22 Pcp, Unknown PCP - General 01/27/22 03/04/22 Kassy Cool MD [address] [place] [address] [email or web address] PCP - General Family Medicine 04/16/23 Hussein Vasquez MD [address] [place] [address] [email or web address] Insurance Assigned Provider 05/04/20 01/06/21 documented as of this encounter Additional Source Comments The information contained in this document represents components of the legal health record. It is not the complete legal health record.[facility]
--- OUTSIDE RECORDS SUMMARY | 2025-06-16 00:07 | XMS_ITS | Encounter Summary ---
Author Organization [facility] Address [address] [place] [address] [place] [address] Phone Care Team Providers Care Mine Superintendent Name Role Phone Kiya Valenzuela NP Primary Care Provider Hussein Vasquez MD Unavailable Kiya Valenzuela NP Primary Care Provider Kassy Cool MD Primary Care Provider Pcp, Unknown Primary Care Provider Unavailabl e Kassy Cool MD Primary Care Provider Encounter Details Date Type Department Care Team (Late st Contact Info) Description 08/09/2020 Procedure Pass [facility], Ct Scan - [address] [address] Social History Tobacco Use Types Packs/Day Years [...] documented as of this encounter Care Teams Mine Superintendent Relationship Specialty Start Date End Date Kiya Valenzuela NP [address] [place] [address] [email or web address] PCP - General Family Medicine 09/03/19 10/07/20 Kiya Valenzuela NP [address] [place] [address] [email or web address] PCP - General Family Medicine 10/08/20 04/30/21 Kassy Cool MD [address] [place] [address] [email or web address] PCP - General Family Medicine 05/01/21 01/26/22 Pcp, Unknown PCP - General 01/27/22 03/04/22 Kassy Cool MD [address] [place] [address] [email or web address] PCP - General Family Medicine 04/16/23 Hussein Vasquez MD 230 [facility] [address] [place] [address] [email or web address] Insurance Assigned Provider 05/04/20 01/06/21 documented as of this encounter Additional Source Comments The information contained in this document represents components of the legal health record. It is not the complete legal health record.[facility]
--- OUTSIDE RECORDS SUMMARY | 2025-06-16 00:07 | XMS_ITS | Encounter Summary ---
Author Organization [facility] Address [address] [facility] [address] [place] [address] Phone Care Team Providers Care Machine Operator Slitter Technician Name Role Phone Kassy Cool MD Primary Care Provider + [phone] Encounter Details Date Type Department Care Team (Late st Contact Info) Description 09/05/2024 Procedure Pass [facility], Ct Scan - [facility] 30 [place] [address] Social History Tobacco Use Types Packs/Day Years [...] 09/05/2024 9:13 PM Cathie Carpenter RN * [place] Suicide Severity Rating Scale (Screener/Recent Self-Report) Question [...] Raiza Mclain, RN Note: 06/19/23: Resides @ [address] [place] [address] ([employer]) Dr. Cool's cell [phone] if needed Previous inpatient detox facilities: [facility] is his preferred detox Formerly homeless Engage in recovery supports General No Carmen Peralta, BRICE Note: Dr. Cool states pt was in a temporary group home run by [facility] in [place] for about 1 month Oct 2020 recently but he eloped from there. It is now closed. She requests that we add to his care plan to direct him to go directly to the group home clinic to see her upon ED if he arrives here on a Friday or , call her either way if he is in the ED [phone]. Also ask pt where he is sleeping currently so she can track him down. documented as of this encounter Visit Diagnoses Not on filedocumented in this encounter Additional Health Concerns Infection Onset Date Last Indicated Resolved Time CoV-Risk 04/26/2025 04/26/2025 05/07/2025 1:21 AM EDT documented as of this encounter Care Teams Machine Operator Slitter Technician Relationship Specialty Start Date End Date Kassy Cool MD [address] [place] [address] [email or web address] PCP - General Family Medicine 04/16/23 documented as of this encounter Additional Source Comments The information contained in this document represents components of the legal health record. It is not the complete legal health record.[facility]
--- OUTSIDE RECORDS SUMMARY | 2025-06-16 00:07 | XMS_ITS | Encounter Summary ---
Author Organization [facility] Address [address] [place] [address] [place] [address] Phone Care Team Providers Care Splicing Machine Operator Automatic Name Role Phone Kiya Valenzuela MANAGER OF RECRUITING Primary Care Provider Hussein Vasquez MD Unavailable Kiya Valenzuela MANAGER OF RECRUITING Primary Care Provider Kassy Cool MD Primary Care Provider Pcp, Unknown Primary Care Provider Unavailabl e Kassy Cool MD Primary Care Provider Encounter Details Date Type Department Care Team (Late st Contact Info) Description 08/20/2020 Procedure Pass [facility], Ct Scan - [address] [address] Social History Tobacco Use Types Packs/Day Years [...] Indicated 08/23/2020 12:57 PM Patti Sheikh * [place] Suicide Severity Rating Scale (Screener/Recent Self-Report) Question [...] documented as of this encounter Care Teams Splicing Machine Operator Automatic Relationship Specialty Start Date End Date Kiya Valenzuela NP [address] [place] [address] [email or web address] PCP - General Family Medicine 09/03/19 10/07/20 Kiya Valenzuela NP [address] [place] [address] [email or web address] PCP - General Family Medicine 10/08/20 04/30/21 Kassy Cool MD [address] [place] [address] [email or web address] PCP - General Family Medicine 05/01/21 01/26/22 Pcp, Unknown PCP - General 01/27/22 03/04/22 Kassy Cool MD [address] [place] [address] [email or web address] PCP - General Family Medicine 04/16/23 Hussein Vasquez MD [address] [place] [address] [address] [place] [address] [email or web address] Assigned Provider 05/04/20 01/06/21 documented as of this encounter Additional Source Comments The information contained in this document represents components of the legal health record. It is not the complete legal health record.[facility]
--- OUTSIDE RECORDS SUMMARY | 2025-06-16 00:07 | XMS_ITS | Encounter Summary ---
Author Organization [facility] Address [address] [facility] [address] [place] [address] Phone Care Team Providers Care Rim Fire Priming Tool Setter Name Role Phone Kassy Cool MD Primary Care Provider + [phone] Encounter Details Date Type Department Care Team (Late st Contact Info) Description 09/05/2024 Procedure Pass [facility], Ct Scan - [facility] 30 [place] [address] Social History Tobacco Use Types Packs/Day Years Used Date Smoking Tobacco: Every Day Cigarettes Smokeless Tobacco: Never Alcohol Use Standard Drinks/Week Comments Yes 0 (1 standard drink = 0.6 oz pure alcohol) 10-15 nips daily and 3, 24 oz beers Education Answer Date Recorded Are you interested in more education? Not on taalt e 01/24/2023 Are you concerned about learning? [...] 09/05/2024 9:13 PM Cathie Carpenter RN * [place] Suicide Severity Rating Scale (Screener/Recent Self-Report) Question [...] Raiza Mclain, RN Note: 06/19/23: Resides @ [address] [place] [address] ([employer]) Dr. Cool's cell [phone] if needed Previous inpatient detox facilities: [facility] is his preferred detox Formerly homeless Engage in recovery supports General No Carmen Peralta, BRICE Note: Dr. Cool states pt was in a temporary group home run by [facility] in [place] for about 1 month Oct 2020 recently but he eloped from there. It is now closed. She requests that we add to his care plan to direct him to go directly to the group home clinic to see her upon ED if he arrives here on a Friday or , call her either way if he is in the ED [phone]. Also ask pt where he is sleeping currently so she can track him down. documented as of this encounter Visit Diagnoses Not on filedocumented in this encounter Additional Health Concerns Infection Onset Date Last Indicated Resolved Time CoV-Risk 04/26/2025 04/26/2025 05/07/2025 1:21 AM EDT documented as of this encounter Care Teams Rim Fire Priming Tool Setter Relationship Specialty Start Date End Date Kassy Cool MD 70 [place] [address] [email or web address] PCP - General Family Medicine 04/16/23 documented as of this encounter Additional Source Comments The information contained in this document represents components of the legal health record. It is not the complete legal health record.[facility]
--- OUTSIDE RECORDS SUMMARY | 2025-06-16 00:07 | XMS_ITS | Encounter Summary ---
Author Organization [facility] Address [address] [place] [address] [place] [address] Phone Care Team Providers Care Collection Advisor Name Role Phone Kiya Valenzuela NP Primary Care Provider Hussein Vasquez MD Unavailable Kiya Valenzuela NP Primary Care Provider Kassy Cool MD Primary Care Provider Pcp, Unknown Primary Care Provider Unavailabl e Kassy Cool MD Primary Care Provider Encounter Details Date Type Department Care Team (Late st Contact Info) Description 08/09/2020 Procedure Pass [facility], Ct Scan - [address] [address] Social History Tobacco Use Types Packs/Day Years [...] documented as of this encounter Care Teams Collection Advisor Relationship Specialty Start Date End Date Kiya Valenzuela NP [address] [place] [address] [email or web address] PCP - General Family Medicine 09/03/19 10/07/20 Kiya Valenzuela NP [address] [place] [address] [email or web address] PCP - General Family Medicine 10/08/20 04/30/21 Kassy Cool MD 70 [place] [address] [email or web address] PCP - General Family Medicine 05/01/21 01/26/22 Pcp, Unknown PCP - General 01/27/22 03/04/22 Kassy Cool MD [address] [place] [address] [email or web address] PCP - General Family Medicine 04/16/23 Hussein Vasquez MD [address] [facility] [address] [place] [address] [email or web address] Assigned Provider 05/04/20 01/06/21 documented as of this encounter Additional Source Comments The information contained in this document represents components of the legal health record. It is not the complete legal health record.[facility]
--- OUTSIDE RECORDS SUMMARY | 2025-06-16 00:07 | XMS_ITS | Encounter Summary ---
Author Organization [facility] Address [address] [facility] [employer] [address] [place] [address] Phone Care Team Providers Care Swimming Professor Name Role Phone Kassy Cool MD Primary Care Provider + [phone] Encounter Details Date Type Department Care Team (Late st Contact Info) Description 08/22/2024 Procedure Pass [facility], Ct Scan - [facility] 30 [place] [address] Social History Tobacco Use Types Packs/Day Years [...] 08/25/2024 5:10 PM Arielle Danielson RN * [place] Suicide Severity Rating Scale (Screener/Recent Self-Report) Question [...] Raiza Mclain RN Note: 06/19/23: Resides @ [address] [place] [address] ([employer]) Dr. Cool's cell [phone] if needed Previous inpatient detox facilities: [facility] is his preferred detox Formerly homeless Engage in recovery supports General No Carmen Peralta, RN Note: Dr. Cool states pt was in a temporary fci run by [facility] in [place] for about 1 month Oct 2020 recently but he eloped from there. It is now closed. She requests that we add to his care plan to direct him to go directly to the fci clinic to see her upon ED if he arrives here on a Friday or , call her either way if he is in the ED [phone]. Also ask pt where he is sleeping currently so she can track him down. documented as of this encounter Visit Diagnoses Not on filedocumented in this encounter Additional Health Concerns Infection Onset Date Last Indicated Resolved Time CoV-Risk 04/26/2025 04/26/2025 05/07/2025 1:21 AM EDT documented as of this encounter Care Teams Swimming Professor Relationship Specialty Start Date End Date Kassy Cool MD [address] [place] [address] [email or web address] PCP - General Family Medicine 04/16/23 documented as of this encounter Additional Source Comments The information contained in this document represents components of the legal health record. It is not the complete legal health record.[facility]
--- OUTSIDE RECORDS SUMMARY | 2025-06-16 00:07 | XMS_ITS | Encounter Summary ---
Author Organization [facility] Address [address] [place] [address] [place] [address] Phone Care Team Providers Care Ethologist Name Role Phone Kiya Valenzuela NP Primary Care Provider Hussein Vasquez MD Unavailable Kiya Valenzuela NP Primary Care Provider Kassy Cool MD Primary Care Provider Pcp, Unknown Primary Care Provider Unavailabl e Kassy Cool MD Primary Care Provider Encounter Details Date Type Department Care Team (Late st Contact Info) Description 07/26/2020 Procedure Pass [facility], Ct Scan - [address] [address] Social History Tobacco Use Types Packs/Day Years [...] documented as of this encounter Care Teams Ethologist Relationship Specialty Start Date End Date Kiya Valenzuela NP [address] [place] [address] [email or web address] PCP - General Family Medicine 09/03/19 10/07/20 Kiya Valenzuela NP [address] [place] [address] [email or web address] PCP - General Family Medicine 10/08/20 04/30/21 Kassy Cool MD [address] [place] [address] [email or web address] PCP - General Family Medicine 05/01/21 01/26/22 Pcp, Unknown PCP - General 01/27/22 03/04/22 Kassy Cool MD [address] [place] [address] [email or web address] PCP - General Family Medicine 04/16/23 Hussein Vasquez MD [address] [facility] [address] [place] [address] [email or web address] Assigned Provider 05/04/20 01/06/21 documented as of this encounter Additional Source Comments The information contained in this document represents components of the legal health record. It is not the complete legal health record.[facility]
--- OUTSIDE RECORDS SUMMARY | 2025-06-16 00:07 | XMS_ITS | Encounter Summary ---
Author Organization [facility] Address [address] [place] [address] [place] [address] Phone Care Team Providers Care Cyber Workforce Developer And Manager Name Role Phone Kiya Valenzuela NP Primary Care Provider Kassy Cool MD Primary Care Provider [phone] Pcp, Unknown Primary Care Provider Unavailabl e Kassy Cool MD Primary Care Provider + [phone] Encounter Details Date Type Department Care Team (Late st Contact Info) Description 01/23/2021 Procedure Pass [facility], Ct Scan - [facility] [address] [place] [address] Social History Tobacco Use Types Packs/Day Years [...] 11:57 AM EDT Johnny Abbasi, RN * [place] Suicide Severity Rating Scale (Screener/Recent Self-Report) Question [...] Raiza Mclain RN Note: 06/19/23: Resides @ [address] [place] [address] ([facility]) Dr. Cool's cell [phone] if needed Previous inpatient detox facilities: [facility] at [facility] is his preferred detox Formerly homeless Engage in recovery supports General No Carmen Peralta RN Note: Dr. Cool states pt was in a temporary intermediate run by [facility] in [place] for about 1 month Oct 2020 recently but he eloped from there. It is now closed. She requests that we add to his care plan to direct him to go directly to the intermediate clinic to see her upon ED if he arrives here on a Friday or , call her either way if he is in the ED [phone]. Also ask pt where he is sleeping [...] documented as of this encounter Care Teams Cyber Workforce Developer And Manager Relationship Specialty Start Date End Date Kiya Valenzuela NP [address] [place] [address] [email or web address] PCP - General Family Medicine 10/08/20 04/30/21 Kassy Cool MD [address] [place] [address] [email or web address] PCP - General Family Medicine 05/01/21 01/26/22 Pcp, Unknown PCP - General 01/27/22 03/04/22 Kassy Cool MD [address] [place] [address] [email or web address] PCP - General Family Medicine 04/16/23 documented as of this encounter Additional Source Comments The information contained in this document represents components of the legal health record. It is not the complete legal health record.[facility]
--- OUTSIDE RECORDS SUMMARY | 2025-06-16 00:07 | XMS_ITS | Encounter Summary ---
Author Organization [facility] Address [address] [facility] [address] [place] [address] Phone Care Team Providers Care National Van Truck Driver Name Role Phone Kassy Cool MD Primary Care Provider + [phone] Encounter Details Date Type Department Care Team (Late st Contact Info) Description 04/01/2024 Procedure Pass [facility], Ct Scan - [facility] [address] [place] [address] Social History Tobacco Use Types Packs/Day Years [...] 10:11 AM EDT Piedad Shields RN * [place] Suicide Severity Rating Scale (Screener/Recent Self-Report) Question [...] Mclain, RN Note: 06/19/23: Resides @ [address] [place] [address] ([employer]) Dr. Cool's cell [phone] if needed Previous inpatient detox facilities: [facility] is his preferred detox Formerly homeless Engage in recovery supports General No Carmen Peralta, RN Note: Dr. Cool states pt was in a temporary mcfp run by [facility] in [place] for about 1 month Oct 2020 recently but he eloped from there. It is now closed. She requests that we add to his care plan to direct him to go directly to the mcfp clinic to see her upon ED if he arrives here on a Friday or , call her either way if he is in the ED [phone]. Also ask pt where he is sleeping currently so she can track him down. documented as of this encounter Visit Diagnoses Not on filedocumented in this encounter Additional Health Concerns Infection Onset Date Last Indicated Resolved Time CoV-Risk 04/01/2024 04/01/2024 04/12/2024 1:21 AM EDT CoV-Risk 04/26/2025 04/26/2025 05/07/2025 1:21 AM EDT documented as of this encounter Care Teams National Van Truck Driver Relationship Specialty Start Date End Date Kassy Cool MD [address] [place] [address] [email or web address] PCP - General Family Medicine 04/16/23 documented as of this encounter Additional Source Comments The information contained in this document represents components of the legal health record. It is not the complete legal health record.[facility]
--- OUTSIDE RECORDS SUMMARY | 2025-06-16 00:07 | XMS_ITS | Encounter Summary ---
Author Organization [facility] Address [address] [place] [address] [place] [address] Phone Care Team Providers Care Cable Installation Technician Name Role Phone Kassy Cool MD Primary Care Provider + [phone] Encounter Details Date Type Department Care Team (Late st Contact Info) Description 03/22/2024 Procedure Pass [facility], Ct Scan - [address] [address] Social History Tobacco Use Types Packs/Day Years [...] EDT Silvio beckett, Theresa Morel RN * [place] Suicide Severity Rating Scale (Screener/Recent Self-Report) Question [...] Mclain RN Note: 06/19/23: Resides @ [address] [place] [address] ([employer]) Dr. Cool's cell [phone] if needed Previous inpatient detox facilities: [facility] at [facility] is his preferred detox Formerly homeless Engage in recovery supports General No Carmen Peralta RN Note: Dr. Cool states pt was in a temporary detention run by [facility] in [place] for about 1 month Oct 2020 recently but he eloped from there. It is now closed. She requests that we add to his care plan to direct him to go directly to the detention clinic to see her upon ED if he arrives here on a Friday or , call her either way if he is in the ED [phone]. Also ask pt where he is sleeping currently so she can track him down. documented as of this encounter Visit Diagnoses Not on filedocumented in this encounter Additional Health Concerns Infection Onset Date Last Indicated Resolved Time CoV-Risk 04/01/2024 04/01/2024 04/12/2024 1:21 AM EDT CoV-Risk 04/26/2025 04/26/2025 05/07/2025 1:21 AM EDT documented as of this encounter Care Teams Cable Installation Technician Relationship Specialty Start Date End Date Kassy Cool MD [address] [place] [address] [email or web address] PCP - General Family Medicine 04/16/23 documented as of this encounter Additional Source Comments The information contained in this document represents components of the legal health record. It is not the complete legal health record.[facility]
--- OUTSIDE RECORDS SUMMARY | 2025-06-16 00:07 | XMS_ITS | Encounter Summary ---
Author Organization [facility] Address [address] [place] [address] [place] [address] Phone Care Team Providers Care Coding Director Name Role Phone Hussein Vasquez MD Unavailable Kiya Valenzuela NP Primary Care Provider Kassy Cool MD Primary Care Provider Pcp, Unknown Primary Care Provider Unavailabl e Kassy Cool MD Primary Care Provider [phone] Encounter Details Date Type Department Care Team (Late st Contact Info) Description 10/19/2020 Procedure Pass [facility], Ct Scan - [address] [address] Social History Tobacco Use Types Packs/Day Years [...] 10/22/2020 3:57 PM Pippa Cortes, BRICE * [place] Suicide Severity Rating Scale (Screener/Recent Self-Report) Question [...] as of this encounter Care Teams Coding Director Relationship Specialty Start Date End Date Kiya Valenzuela NP [address] [place] [address] [email or web address] PCP - General Family Medicine 10/08/20 04/30/21 Kassy Cool MD [address] [place] [address] [email or web address] PCP - General Family Medicine 05/01/21 01/26/22 Pcp, Unknown PCP - General 01/27/22 03/04/22 Kassy Cool MD [address] [place] [address] [email or web address] PCP - General Family Medicine 04/16/23 Hussein Vasquez MD [address] [facility] [address] [place] [address] [email or web address] Insurance Assigned Provider 05/04/20 01/06/21 documented as of this encounter Additional Source Comments The information contained in this document represents components of the legal health record. It is not the complete legal health record.[facility]
--- OUTSIDE RECORDS SUMMARY | 2025-06-16 00:07 | XMS_ITS | Encounter Summary ---
Author Organization [facility] Address [address] [place] [address] [place] [address] Phone Care Team Providers Care Pile Driving Superintendent Name Role Phone Kiya Valenzuela NP Primary Care Provider Kassy Cool MD Primary Care Provider Pcp, Unknown Primary Care Provider Unavailabl e Kassy Cool MD Primary Care Provider + [phone] Encounter Details Date Type Department Care Team (Late st Contact Info) Description 01/23/2021 Procedure Pass [facility], Ct Scan - [facility] [address] [place] [address] Social History Tobacco Use Types Packs/Day Years [...] 11:57 AM EDT Johnny Abbasi, RN * [place] Suicide Severity Rating Scale (Screener/Recent Self-Report) Question [...] Raiza Mclain RN Note: 06/19/23: Resides @ [address] [place] [address] ([facility]) Dr. Cool's cell [phone] if needed Previous inpatient detox facilities: [facility] Unit at [facility] is his preferred detox Formerly homeless Engage in recovery supports General No Carmen Peralta RN Note: Dr. Cool states pt was in a temporary chcf run by [facility] in [place] for about 1 month Oct 2020 recently but he eloped from there. It is now closed. She requests that we add to his care plan to direct him to go directly to the chcf clinic to see her upon ED if he arrives here on a Friday or , call her either way if he is in the ED [phone]. Also ask pt where he is sleeping [...] documented as of this encounter Care Teams Pile Driving Superintendent Relationship Specialty Start Date End Date Kiya Valenzuela NP [address] [place] [address] [email or web address] PCP - General Family Medicine 10/08/20 04/30/21 Kassy Cool MD [address] [place] [address] PCP - General Family Medicine 05/01/21 01/26/22 Pcp, Unknown PCP - General 01/27/22 03/04/22 Kassy Cool MD [address] [place] [address] PCP - General Family Medicine 04/16/23 documented as of this encounter Additional Source Comments The information contained in this document represents components of the legal health record. It is not the complete legal health record.[facility]
--- OUTSIDE RECORDS SUMMARY | 2025-06-16 00:08 | XMS_ITS | Encounter Summary ---
Author Organization [facility] [employer] Address [address] [facility] [address] [place] [address] Care Team Providers Care Boats Renter Name Role Phone DarrionJackie Unavailable Unavailable Kassy Cool MD Primary Care Provider Mel Erazo Unavailable Unavailable Encounter Details Date Type Department Care Team (Late st Contact Info) Description 06/15/2025 Orders Only [facility] Information Management [address] [place] [address] Kassy Cool MD [address] [place] [address] Social History Tobacco Use Types Packs/Day Years [...] Comments CT HEAD WO CONTRAST Routine 06/15/2025 10:[address] CERVICAL SPINE WO CONTRAST Routine 06/15/2025 9:54 AM EDT documented in this encounter Results * CT HEAD WO CONTRAST (06/15/2025 10:15 AM EDT) Anatomical Region Laterality Modality Computed Tomogra phy us Kassy Cool MD IMG CT PROCEDURES Final Result * CT Cervical Spine w/o Contrast (06/15/2025 9:54 AM EDT) Anatomical Region Laterality Modality Spine, C-spine Computed Tomogra phy us Kassy Cool MD IMG CT PROCEDURES Final Result documented in this encounter Visit Diagnoses Not on filedocumented in this encounter Care Teams Boats Renter Relationship Specialty Start Date End Date Kassy Cool MD [address] [place] [address] PCP - General Family Medicine 10/09/22 Jackie Maier Health Navigator Case Management 10/09/22 Mel Erazo Community Health Worker Case Management 10/30/22 documented as of this encounter
--- OUTSIDE RECORDS SUMMARY | 2025-06-16 00:08 | XMS_ITS | Encounter Summary ---
Author Organization [facility] Address [address] [place] [address] [place] [address] Phone Care Team Providers Care Bike Technician Name Role Phone Kassy Cool MD Primary Care Provider + [phone] Encounter Details Date Type Department Care Team (Late st Contact Info) Description 09/17/2023 Procedure Pass [facility], Ct Scan - [address] [address] Social History Tobacco Use Types Packs/Day Years [...] 09/17/2023 1:11 PM Raven Ding RN * [place] Suicide Severity Rating Scale (Screener/Recent Self-Report) Question [...] Mclain RN Note: 06/19/23: Resides @ [address] [place] [address] ([employer]) Dr. Cool's cell [phone] if needed Previous inpatient detox facilities: [facility] is his preferred detox Formerly homeless Engage in recovery supports General No Carmen Peralta RN Note: Dr. Cool states pt was in a temporary m[facility] run by [facility] in [place] for about 1 month Oct 2020 recently but he eloped from there. It is now closed. She requests that we add to his care plan to direct him to go directly to the mcfp clinic to see her upon ED if he arrives here on a Friday or , call her either way if he is in the ED [phone]. Also ask pt where he is sleeping currently so she can track him down. documented as of this encounter Visit Diagnoses Not on filedocumented in this encounter Additional Health Concerns Infection Onset Date Last Indicated Resolved Time CoV-Risk 04/01/2024 04/01/2024 04/12/2024 1:21 AM EDT CoV-Risk 04/26/2025 04/26/2025 05/07/2025 1:21 AM EDT documented as of this encounter Care Teams Bike Technician Relationship Specialty Start Date End Date Kassy Cool MD [address] [place] [address] [email or web address] PCP - General Family Medicine 04/16/23 documented as of this encounter Additional Source Comments The information contained in this document represents components of the legal health record. It is not the complete legal health record.[facility]
--- OUTSIDE RECORDS SUMMARY | 2025-06-16 00:08 | XMS_ITS | Encounter Summary ---
Author Organization [facility] Address [address] [place] [address] [place] [address] Phone Care Team Providers Care Endoscopy Rn Name Role Phone Kassy Cool MD Primary Care Provider + [phone] Encounter Details Date Type Department Care Team (Late st Contact Info) Description 07/15/2023 Procedure Pass [facility], Ct Scan - [facility] 30 [place] [address] Social History Tobacco Use Types Packs/Day Years [...] Mclain, RN Note: 06/19/23: Resides @ [address] [place] [address] ([employer]) Dr. Cool's cell [phone] if needed Previous inpatient detox facilities: [facility] is his preferred detox Formerly homeless Engage in recovery supports General Carmen Juan RN Note: Dr. Cool states pt was in a temporary long term run by [facility] in [place] for about 1 month Oct 2020 recently but he eloped from there. It is now closed. She requests that we add to his care plan to direct him to go directly to the long term clinic to see her upon ED if he arrives here on a Friday or , call her either way if he is in the ED [phone]. Also ask pt where he is sleeping currently so she can track him down. documented as of this encounter Visit Diagnoses Not on filedocumented in this encounter Additional Health Concerns Infection Onset Date Last Indicated Resolved Time CoV-Risk 04/01/2024 04/01/2024 04/12/2024 1:21 AM EDT CoV-Risk 04/26/2025 04/26/2025 05/07/2025 1:21 AM EDT documented as of this encounter Care Teams Endoscopy Rn Relationship Specialty Start Date End Date Kassy Cool MD [address] [place] [address] PCP - General Family Medicine 04/16/23 documented as of this encounter Additional Source Comments The information contained in this document represents components of the legal health record. It is not the complete legal health record.[facility]
--- OUTSIDE RECORDS SUMMARY | 2025-06-16 00:08 | XMS_ITS | Encounter Summary ---
Author Organization [facility] Address [address] [place] [address] [place] [address] Phone Care Team Providers Care Manager Inspection Name Role Phone Kassy Cool MD Primary Care Provider + [phone] Encounter Details Date Type Department Care Team (Late st Contact Info) Description 09/17/2023 Procedure Pass [facility], Ct Scan - [address] [address] Social History Tobacco Use Types Packs/Day Years [...] 09/17/2023 1:11 PM Raven Ding RN * [place] Suicide Severity Rating Scale (Screener/Recent Self-Report) Question [...] Mclain RN Note: 06/19/23: Resides @ [address] [place] [address] ([employer]) Dr. Cool's cell [phone] if needed Previous inpatient detox facilities: [facility] his preferred detox Formerly homeless Engage in recovery supports General No Carmen Peralta RN Note: Dr. Cool states pt was in a temporary residential run by [facility] in [place] for about 1 month Oct 2020 recently but he eloped from there. It is now closed. She requests that we add to his care plan to direct him to go directly to the residential clinic to see her upon ED if he arrives here on a Friday or , call her either way if he is in the ED [phone]. Also ask pt where he is sleeping currently so she can track him down. documented as of this encounter Visit Diagnoses Not on filedocumented in this encounter Additional Health Concerns Infection Onset Date Last Indicated Resolved Time CoV-Risk 04/01/2024 04/01/2024 04/12/2024 1:21 AM EDT CoV-Risk 04/26/2025 04/26/2025 05/07/2025 1:21 AM EDT documented as of this encounter Care Teams Manager Inspection Relationship Specialty Start Date End Date Kassy Cool MD [address] [place] [address] [email or web address] PCP - General Family Medicine 04/16/23 documented as of this encounter Additional Source Comments The information contained in this document represents components of the legal health record. It is not the complete legal health record.[facility]
--- OUTSIDE RECORDS SUMMARY | 2025-06-16 00:08 | XMS_ITS | Encounter Summary ---
Author Organization [facility] Address [address] [facility] [address] [place] [address] Phone Care Team Providers Care Auxiliary Equipment Operator Name Role Phone Kassy Cool MD Primary Care Provider + [phone] Encounter Details Date Type Department Care Team (Late st Contact Info) Description 04/01/2025 Procedure Pass [facility], Ct Scan - [facility] [address] [place] [address] Social History Tobacco Use Types Packs/Day Years [...] 5:35 PM EDT Arielle Saxena RN * [place] Suicide Severity Rating Scale (Screener/Recent Self-Report) Question [...] Raiza Mclain, RN Note: 06/19/23: Resides @ [address] [place] [address] ([employer]) Dr. Cool's cell [phone] if needed Previous inpatient detox facilities: [facility] is his preferred detox Formerly homeless Engage in recovery supports General No Carmen Peralta, BRICE Note: Dr. Cool states pt was in a temporary prison run by [facility] in [place] for about 1 month Oct 2020 recently but he eloped from there. It is now closed. She requests that we add to his care plan to direct him to go directly to the prison clinic to see her upon ED if he arrives here on a Friday or , call her either way if he is in the ED [phone]. Also ask pt where he is sleeping currently so she can track him down. documented as of this encounter Visit Diagnoses Not on filedocumented in this encounter Additional Health Concerns Infection Onset Date Last Indicated Resolved Time CoV-Risk 04/26/2025 04/26/2025 05/07/2025 1:21 AM EDT documented as of this encounter Care Teams Auxiliary Equipment Operator Relationship Specialty Start Date End Date Kassy Cool MD [address] [place] [address] [email or web address] PCP - General Family Medicine 04/16/23 documented as of this encounter Additional Source Comments The information contained in this document represents components of the legal health record. It is not the complete legal health record.[facility]
--- OUTSIDE RECORDS SUMMARY | 2025-06-16 00:08 | XMS_ITS | Encounter Summary ---
Author Organization [facility] Address [address] [place] [address] [place] [address] Phone Care Team Providers Care Seed Potato Cutter Name Role Phone Kiya Valenzuela NP Primary Care Provider Hussein Vasquez MD Unavailable Kiya Valenzuela NP Primary Care Provider Kassy Cool MD Primary Care Provider Pcp, Unknown Primary Care Provider Unavailabl e Kassy Cool MD Primary Care Provider Encounter Details Date Type Department Care Team (Late st Contact Info) Description 07/26/2020 Procedure Pass [facility], Ct Scan - [address] [address] Social History Tobacco Use Types Packs/Day Years [...] documented as of this encounter Care Teams Seed Potato Cutter Relationship Specialty Start Date End Date Kiya Valenzuela NP [address] [place] [address] [email or web address] PCP - General Family Medicine 09/03/19 10/07/20 Kiya Valenzuela NP [address] [place] [address] [email or web address] PCP - General Family Medicine 10/08/20 04/30/21 Kassy Cool MD [address] [place] [address] [email or web address] PCP - General Family Medicine 05/01/21 01/26/22 Pcp, Unknown PCP - General 01/27/22 03/04/22 Kassy Cool MD [address] [place] [address] [email or web address] PCP - General Family Medicine 04/16/23 Hussein Vasuqez MD [address] [facility] [address] [place] [address] [email or web address] Insurance Assigned Provider 05/04/20 01/06/21 documented as of this encounter Additional Source Comments The information contained in this document represents components of the legal health record. It is not the complete legal health record.[facility]
--- OUTSIDE RECORDS SUMMARY | 2025-06-16 00:08 | XMS_ITS | Encounter Summary ---
Author Organization [facility] Address [address] [place] [address] [place] [address] Phone Care Team Providers Care Slag Dumper Name Role Phone Kassy Cool MD Primary Care Provider + [phone] Encounter Details Date Type Department Care Team (Late st Contact Info) Description 11/26/2023 Procedure Pass [facility], Ct Scan - [address] [address] Social History Tobacco Use Types Packs/Day Years [...] 11/28/2023 8:09 PM Henny Saldana RN * [place] Suicide Severity Rating Scale (Screener/Recent Self-Report) Question [...] Mclain RN Note: 06/19/23: Resides @ [address] [place] [address] ([employer]) Dr. Cool's cell [phone] if needed Previous inpatient detox facilities: [facility] is his preferred detox Formerly homeless Engage in recovery supports General No Carmen Peralta RN Note: Dr. Cool states pt was in a temporary fdc run by [facility] in [place] for about 1 month Oct 2020 recently but he eloped from there. It is now closed. She requests that we add to his care plan to direct him to go directly to the fdc clinic to see her upon ED if he arrives here on a Friday or , call her either way if he is in the ED [phone]. Also ask pt where he is sleeping currently so she can track him down. documented as of this encounter Visit Diagnoses Not on filedocumented in this encounter Additional Health Concerns Infection Onset Date Last Indicated Resolved Time CoV-Risk 04/01/2024 04/01/2024 04/12/2024 1:21 AM EDT CoV-Risk 04/26/2025 04/26/2025 05/07/2025 1:21 AM EDT documented as of this encounter Care Teams Slag Dumper Relationship Specialty Start Date End Date Kassy Cool MD [address] [place] [address] [email or web address] PCP - General Family Medicine 04/16/23 documented as of this encounter Additional Source Comments The information contained in this document represents components of the legal health record. It is not the complete legal health record.[facility]
--- OUTSIDE RECORDS SUMMARY | 2025-06-16 00:08 | XMS_ITS | Encounter Summary ---
Author Organization [facility] Address [address] [place] [address] [place] [address] Phone Care Team Providers Care Customer Liaison Name Role Phone Kassy Cool MD Primary Care Provider + [phone] Encounter Details Date Type Department Care Team (Late st Contact Info) Description 01/02/2024 Procedure Pass [facility], Ct Scan - [address] [address] Social History Tobacco Use Types Packs/Day Years [...] 10:25 AM EDT Nia Osuna RN * [place] Suicide Severity Rating Scale (Screener/Recent Self-Report) Question [...] Raiza Mclain RN Note: 06/19/23: Resides @ [address] [place] [address] ([employer]) Dr. Cool's cell [phone] if needed Previous inpatient detox facilities: [facility] is his preferred detox Formerly homeless Engage in recovery supports General No Carmen Peralta RN Note: Dr. Cool states pt was in a temporary alf run by [facility] in [place] for about 1 month Oct 2020 recently but he eloped from there. It is now closed. She requests that we add to his care plan to direct him to go directly to the alf clinic to see her upon ED if he arrives here on a Friday or , call her either way if he is in the ED [phone]. Also ask pt where he is sleeping currently so she can track him down. documented as of this encounter Visit Diagnoses Not on filedocumented in this encounter Additional Health Concerns Infection Onset Date Last Indicated Resolved Time CoV-Risk 04/01/2024 04/01/2024 04/12/2024 1:21 AM EDT CoV-Risk 04/26/2025 04/26/2025 05/07/2025 1:21 AM EDT documented as of this encounter Care Teams Customer Liaison Relationship Specialty Start Date End Date Kassy Cool MD [address] [place] [address] [email or web address] PCP - General Family Medicine 04/16/23 documented as of this encounter Additional Source Comments The information contained in this document represents components of the legal health record. It is not the complete legal health record.[facility]
--- OUTSIDE RECORDS SUMMARY | 2025-06-16 00:08 | XMS_ITS | Encounter Summary ---
Author Organization [facility] Address [address] [place] [address] [place] [address] Phone Care Team Providers Care Colorer Machine Name Role Phone Kassy Cool MD Primary Care Provider + [phone] Encounter Details Date Type Department Care Team (Late st Contact Info) Description 11/03/2023 Procedure Pass [facility], Ct Scan - [address] [address] Social History Tobacco Use Types Packs/Day Years [...] 11/03/2023 7:49 PM Asia Barrett RN * [place] Suicide Severity Rating Scale (Screener/Recent Self-Report) Question [...] Raiza Mclain RN Note: 06/19/23: Resides @ [address] [place] [address] ([employer]) Dr. Cool's cell [phone] if needed Previous inpatient detox facilities: [facility] is his preferred detox Formerly homeless Engage in recovery supports General No Carmen Peralta RN Note: Dr. Cool states pt was in a temporary alf run by [facility] in [place] for about 1 month Oct 2020 recently but he eloped from there. It is now closed. She requests that we add to his care plan to direct him to go directly to the alf clinic to see her upon ED if he arrives here on a Friday or , call her either way if he is in the ED [phone]. Also ask pt where he is sleeping currently so she can track him down. documented as of this encounter Visit Diagnoses Not on filedocumented in this encounter Additional Health Concerns Infection Onset Date Last Indicated Resolved Time CoV-Risk 04/01/2024 04/01/2024 04/12/2024 1:21 AM EDT CoV-Risk 04/26/2025 04/26/2025 05/07/2025 1:21 AM EDT documented as of this encounter Care Teams Colorer Machine Relationship Specialty Start Date End Date Kassy Cool MD [address] [place] [address] [email or web address] PCP - General Family Medicine 04/16/23 documented as of this encounter Additional Source Comments The information contained in this document represents components of the legal health record. It is not the complete legal health record.[facility]
--- OUTSIDE RECORDS SUMMARY | 2025-06-16 00:08 | XMS_ITS ---
Author Organization [facility] Address [address] [place] [address] [place] [address] Care Team Providers Care Manager Cost Name Role Phone Jackie Maier Unavailable Unavailable Kassy Cool MD Primary Care Provider [phone] Mel Erazo Unavailable Unavailable [facility] Status:Outreach In Progress (Enrolling) Start date:01/11/2025 Enrollment reason:ADT Feed Case Team Name Relationship Phone Lyndon Garcia(Responsible Staff) [phone] Continued Care and Services Coordination
--- OUTSIDE RECORDS SUMMARY | 2025-06-16 00:08 | XMS_ITS | Encounter Summary ---
Author Organization [facility] Address [address] [place] [address] [place] [address] Phone Care Team Providers Care Promotional Advertising Assistant Name Role Phone Kiya Valenzuela NP Primary Care Provider Hussein Vasquez MD Unavailable Kiya Valenzuela NP Primary Care Provider Kassy Cool MD Primary Care Provider Pcp, Unknown Primary Care Provider Unavailabl e Kassy Cool MD Primary Care Provider Encounter Details Date Type Department Care Team (Late st Contact Info) Description 06/24/2020 Procedure Pass [facility], Ct Scan - [address] [address] Social History Tobacco Use Types Packs/Day Years [...] documented as of this encounter Care Teams Promotional Advertising Assistant Relationship Specialty Start Date End Date Kiya Valenzuela NP [address] [place] [address] [email or web address] PCP - General Family Medicine 09/03/19 10/07/20 Kiya Valenzuela NP [address] [place] [address] [email or web address] PCP - General Family Medicine 10/08/20 04/30/21 Kassy Cool MD [address] [place] [address] [email or web address] PCP - General Family Medicine 05/01/21 01/26/22 Pcp, Unknown PCP - General 01/27/22 03/04/22 Kassy Cool MD [address] [place] [address] [email or web address] PCP - General Family Medicine 04/16/23 Hussein Vasquez MD [address] [facility] [address] [place] [address] [email or web address] Insurance Assigned Provider 05/04/20 01/06/21 documented as of this encounter Additional Source Comments The information contained in this document represents components of the legal health record. It is not the complete legal health record.[facility]
--- OUTSIDE RECORDS SUMMARY | 2025-06-16 00:08 | XMS_ITS | Encounter Summary ---
Author Organization [facility] Address [address] [place] [address] [place] [address] Phone Care Team Providers Care Granite Polisher Machine Name Role Phone Kassy Cool MD Primary Care Provider + [phone] Encounter Details Date Type Department Care Team (Late st Contact Info) Description 11/26/2023 Procedure Pass [facility], Ct Scan - [address] [address] Social History Tobacco Use Types Packs/Day Years [...] 11/28/2023 8:09 PM Henny Saldana RN * [place] Suicide Severity Rating Scale (Screener/Recent Self-Report) Question [...] Raiza Mclain RN Note: 06/19/23: Resides @ [address] [place] [address] ([employer]) Dr. Cool's cell [phone] if needed Previous inpatient detox facilities: [facility] is his preferred detox Formerly homeless Engage in recovery supports General No Carmen Peralta RN Note: Dr. Cool states pt was in a temporary fdc run by [facility] in [place] for about 1 month Oct 2020 recently but he eloped from there. It is now closed. She requests that we add to his care plan to direct him to go directly to the fdc clinic to see her upon ED if he arrives here on a Friday or , call her either way if he is in the ED [phone]. Also ask pt where he is sleeping currently so she can track him down. documented as of this encounter Visit Diagnoses Not on filedocumented in this encounter Additional Health Concerns Infection Onset Date Last Indicated Resolved Time CoV-Risk 04/01/2024 04/01/2024 04/12/2024 1:21 AM EDT CoV-Risk 04/26/2025 04/26/2025 05/07/2025 1:21 AM EDT documented as of this encounter Care Teams Granite Polisher Machine Relationship Specialty Start Date End Date Kassy Cool MD [address] [place] [address] [email or web address] PCP - General Family Medicine 04/16/23 documented as of this encounter Additional Source Comments The information contained in this document represents components of the legal health record. It is not the complete legal health record.[facility]
--- OUTSIDE RECORDS SUMMARY | 2025-06-16 00:08 | XMS_ITS | Encounter Summary ---
Author Organization [facility] Address [address] [place] [address] [place] [address] Phone Care Team Providers Care Hard Rock Miner Name Role Phone Kassy Cool MD Primary Care Provider + [phone] Encounter Details Date Type Department Care Team (Late st Contact Info) Description 10/21/2023 Procedure Pass [facility], Ct Scan - [address] [address] Social History Tobacco Use Types Packs/Day Years [...] Indicated 10/21/2023 6:39 PM Jojo Bell * [place] Suicide Severity Rating Scale (Screener/Recent Self-Report) Question [...] Raiza Mclain, RN Note: 06/19/23: Resides @ [address] [place] [address] ([employer] [facility]) Dr. Cool's cell [phone] if needed Previous inpatient detox facilities[place] [facility] is his preferred detox Formerly homeless Engage in recovery supports General No Carmen Peralta, BRICE Note: Dr. Cool states pt was in a temporary intermediate run by [facility] in [place] for about 1 month Oct 2020 recently but he eloped from there. It is now closed. She requests that we add to his care plan to direct him to go directly to the intermediate clinic to see her upon ED if he arrives here on a Friday or , call her either way if he is in the ED [phone]. Also ask pt where he is sleeping currently so she can track him down. documented as of this encounter Visit Diagnoses Not on filedocumented in this encounter Additional Health Concerns Infection Onset Date Last Indicated Resolved Time CoV-Risk 04/01/2024 04/01/2024 04/12/2024 1:21 AM EDT CoV-Risk 04/26/2025 04/26/2025 05/07/2025 1:21 AM EDT documented as of this encounter Care Teams Hard Rock Miner Relationship Specialty Start Date End Date Kassy Cool MD [address] [place] [address] [email or web address] PCP - General Family Medicine 04/16/23 documented as of this encounter Additional Source Comments The information contained in this document represents components of the legal health record. It is not the complete legal health record.[facility]
--- OUTSIDE RECORDS SUMMARY | 2025-06-16 00:08 | XMS_ITS | Encounter Summary ---
Author Organization [facility] Address [address] [facility] [address] [place] [address] Phone Care Team Providers Care Real Estate Instructor Name Role Phone Kassy Cool MD Primary Care Provider + [phone] Encounter Details Date Type Department Care Team (Late st Contact Info) Description 04/01/2025 Procedure Pass [facility], Ct Scan - [facility] [address] [place] [address] Social History Tobacco Use Types Packs/Day Years [...] 5:35 PM EDT Arielle Saxena RN * [place] Suicide Severity Rating Scale (Screener/Recent Self-Report) Question [...] Raiza Mclain, RN Note: 06/19/23: Resides @ [address] [place] [address] ([employer]) Dr. Cool's cell [phone] if needed Previous inpatient detox facilities: [facility] is his preferred detox Formerly homeless Engage in recovery supports General No Carmen Peralta, BRICE Note: Dr. Cool states pt was in a temporary mcc run by [facility] in [place] for about 1 month Oct 2020 recently but he eloped from there. It is now closed. She requests that we add to his care plan to direct him to go directly to the mcc clinic to see her upon ED if he arrives here on a Friday or , call her either way if he is in the ED [phone]. Also ask pt where he is sleeping currently so she can track him down. documented as of this encounter Visit Diagnoses Not on filedocumented in this encounter Additional Health Concerns Infection Onset Date Last Indicated Resolved Time CoV-Risk 04/26/2025 04/26/2025 05/07/2025 1:21 AM EDT documented as of this encounter Care Teams Real Estate Instructor Relationship Specialty Start Date End Date Kassy Cool MD [address] [place] [address] [email or web address] PCP - General Family Medicine 04/16/23 documented as of this encounter Additional Source Comments The information contained in this document represents components of the legal health record. It is not the complete legal health record.[facility]
--- OUTSIDE RECORDS SUMMARY | 2025-06-16 00:08 | XMS_ITS | Encounter Summary ---
Author Organization [facility] Address [address] [place] [address] [place] [address] Phone Care Team Providers Care Corporate Legal Manager Name Role Phone Kassy Cool MD Primary Care Provider + [phone] Encounter Details Date Type Department Care Team (Late st Contact Info) Description 07/15/2023 Procedure Pass [facility], Ct Scan - [facility] [address] [place] [address] Social History Tobacco Use Types Packs/Day Years [...] Mclain, RN Note: 06/19/23: Resides @ [address] [place] [address] ([employer]) Dr. Cool's cell [phone] if needed Previous inpatient detox facilities: [facility] is his preferred detox Formerly homeless Engage in recovery supports General Carmen Juan RN Note: Dr. Cool states pt was in a temporary group home run by [facility] in [place] for about 1 month Oct 2020 recently but he eloped from there. It is now closed. She requests that we add to his care plan to direct him to go directly to the group home clinic to see her upon ED if he arrives here on a Friday or , call her either way if he is in the ED [phone]. Also ask pt where he is sleeping currently so she can track him down. documented as of this encounter Visit Diagnoses Not on filedocumented in this encounter Additional Health Concerns Infection Onset Date Last Indicated Resolved Time CoV-Risk 04/01/2024 04/01/2024 04/12/2024 1:21 AM EDT CoV-Risk 04/26/2025 04/26/2025 05/07/2025 1:21 AM EDT documented as of this encounter Care Teams Corporate Legal Manager Relationship Specialty Start Date End Date Kassy Cool MD [address] [place] [address] PCP - General Family Medicine 04/16/23 documented as of this encounter Additional Source Comments The information contained in this document represents components of the legal health record. It is not the complete legal health record.[facility]
--- OUTSIDE RECORDS SUMMARY | 2025-06-16 00:08 | XMS_ITS | Encounter Summary ---
Author Organization [facility] Address [address] [facility] [address] [place] [address] Phone Care Team Providers Care Personal Care Home Administrator Name Role Phone Kassy Cool MD Primary Care Provider + [phone] Encounter Details Date Type Department Care Team (Late st Contact Info) Description 04/01/2025 Procedure Pass [facility], Ct Scan - [facility] [address] [place] [address] Social History Tobacco Use Types Packs/Day Years [...] 5:35 PM EDT Arielle Saxena RN * [place] Suicide Severity Rating Scale (Screener/Recent Self-Report) Question [...] Mclain, RN Note: 06/19/23: Resides @ [address] [place] [address] ([employer]) Dr. Cool's cell [phone] if needed Previous inpatient detox facilities: [facility] is his preferred detox Formerly homeless Engage in recovery supports General No Carmen Peralta, BRICE Note: Dr. Cool states pt was in a temporary senior care run by [facility] in [place] for about 1 month Oct 2020 recently but he eloped from there. It is now closed. She requests that we add to his care plan to direct him to go directly to the senior care clinic to see her upon ED if he arrives here on a Friday or , call her either way if he is in the ED [phone]. Also ask pt where he is sleeping currently so she can track him down. documented as of this encounter Visit Diagnoses Not on filedocumented in this encounter Additional Health Concerns Infection Onset Date Last Indicated Resolved Time CoV-Risk 04/26/2025 04/26/2025 05/07/2025 1:21 AM EDT documented as of this encounter Care Teams Personal Care Home Administrator Relationship Specialty Start Date End Date Kassy Cool MD [address] [place] [address] [email or web address] PCP - General Family Medicine 04/16/23 documented as of this encounter Additional Source Comments The information contained in this document represents components of the legal health record. It is not the complete legal health record.[facility]
--- OUTSIDE RECORDS SUMMARY | 2025-06-16 00:08 | XMS_ITS | Encounter Summary ---
Author Organization [facility] Address [address] [place] [address] [place] [address] Phone Care Team Providers Care Clinical Rehab Specialist Name Role Phone Kassy Cool MD Primary Care Provider + [phone] Encounter Details Date Type Department Care Team (Late st Contact Info) Description 10/21/2023 Procedure Pass [facility], Ct Scan - [address] [address] Social History Tobacco Use Types Packs/Day Years [...] Indicated 10/21/2023 6:39 PM Jojo Bell * [place] Suicide Severity Rating Scale (Screener/Recent Self-Report) Question [...] Raiza Mclain, RN Note: 06/19/23: Resides @ [address] [place] [address] ([facility]) Dr. Cool's cell [phone] if needed Previous inpatient detox facilities: [facility] is his preferred detox Formerly homeless Engage in recovery supports General No Carmen Peralta, BRICE Note: Dr. Cool states pt was in a temporary halfway run by [facility] in [place] for about 1 month Oct 2020 recently but he eloped from there. It is now closed. She requests that we add to his care plan to direct him to go directly to the halfway clinic to see her upon ED if he arrives here on a Friday or , call her either way if he is in the ED [phone]. Also ask pt where he is sleeping currently so she can track him down. documented as of this encounter Visit Diagnoses Not on filedocumented in this encounter Additional Health Concerns Infection Onset Date Last Indicated Resolved Time CoV-Risk 04/01/2024 04/01/2024 04/12/2024 1:21 AM EDT CoV-Risk 04/26/2025 04/26/2025 05/07/2025 1:21 AM EDT documented as of this encounter Care Teams Clinical Rehab Specialist Relationship Specialty Start Date End Date Kassy Cool MD [address] [place] [address] [email or web address] PCP - General Family Medicine 04/16/23 documented as of this encounter Additional Source Comments The information contained in this document represents components of the legal health record. It is not the complete legal health record.[facility]
--- OUTSIDE RECORDS SUMMARY | 2025-06-16 00:09 | XMS_ITS | Encounter Summary ---
Author Organization [facility] Address [address] [place] [address] [place] [address] Phone Care Team Providers Care Periodicals Clerk Name Role Phone Kiya Valenzuela NP Primary Care Provider Kassy Cool MD Primary Care Provider Pcp, Unknown Primary Care Provider Unavailabl e Kassy Cool MD Primary Care Provider [phone] Encounter Details Date Type Department Care Team (Late st Contact Info) Description 04/27/2021 Procedure Pass [facility], Ct Scan - [address] [address] Social History Tobacco Use Types Packs/Day Years [...] Mclain, RN Note: 06/19/23: Resides @ [address] [place] [address] ([employer]) Dr. Cool's cell [phone] if needed Previous inpatient detox facilities: R[facility] Unit at [facility] is his preferred detox Formerly homeless Engage in recovery supports General Carmen Juan RN Note: Dr. Cool states pt was in a temporary senior care run by [facility] in [place] for about 1 month Oct 2020 recently but he eloped from there. It is now closed. She requests that we add to his care plan to direct him to go directly to the senior care clinic to see her upon ED if he arrives here on a Friday or , call her either way if he is in the ED [phone]. Also ask pt where he is sleeping [...] documented as of this encounter Care Teams Periodicals Clerk Relationship Specialty Start Date End Date Kiya Valenzuela NP [address] [place] [address] [email or web address] PCP - General Family Medicine 10/08/20 04/30/21 Kassy Cool MD [address] [place] [address] [email or web address] PCP - General Family Medicine 05/01/21 01/26/22 Pcp, Unknown PCP - General 01/27/22 03/04/22 Kassy Cool MD [address] [place] [address] [email or web address] PCP - General Family Medicine 04/16/23 documented as of this encounter Additional Source Comments The information contained in this document represents components of the legal health record. It is not the complete legal health record.[facility]
--- OUTSIDE RECORDS SUMMARY | 2025-06-16 00:09 | XMS_ITS | Encounter Summary ---
Author Organization [facility] Address [address] [place] [address] [place] [address] Phone Care Team Providers Care Cork Pressing Machine Operator Name Role Phone Kassy Cool MD Primary Care Provider + [phone] Pcp, Unknown Primary Care Provider Unavailabl e Kassy Cool MD Primary Care Provider + [phone] Encounter Details Date Type Department Care Team (Late st Contact Info) Description 05/01/2021 Procedure Pass [facility], Ct Scan - [address] [address] Social History Tobacco Use Types Packs/Day Years [...] 3:06 PM EDT Ross Gregory RN * [place] Suicide Severity Rating Scale (Screener/Recent Self-Report) [...] Mclain RN Note: 06/19/23: Resides @ [address] [place] [address] ([employer]) Dr. Cool's cell [phone] if needed Previous inpatient detox facilities: [facility] is his preferred detox Formerly homeless Engage in recovery supports General No Carmen Peralta, BRICE Note: Dr. Cool states pt was in a temporary fdc run by [facility] in [place] for about 1 month Oct 2020 recently but he eloped from there. It is now closed. She requests that we add to his care plan to direct him to go directly to the fdc clinic to see her upon ED if he arrives here on a Friday or , call her either way if he is in the ED [phone]. Also ask pt where he is sleeping [...] documented as of this encounter Care Teams Cork Pressing Machine Operator Relationship Specialty Start Date End Date Kassy Cool MD [address] [place] [address] PCP - General Family Medicine 05/01/21 01/26/22 Pcp, Unknown PCP - General 01/27/22 03/04/22 Kassy Cool MD 70 [place] [address] PCP - General Family Medicine 04/16/23 documented as of this encounter Additional Source Comments The information contained in this document represents components of the legal health record. It is not the complete legal health record.[facility]
--- OUTSIDE RECORDS SUMMARY | 2025-06-16 00:09 | XMS_ITS | Encounter Summary ---
Author Organization [facility] Address [address] [place] [address] [place] [address] Phone Care Team Providers Care Aircraft Painter Name Role Phone Kassy Cool MD Primary Care Provider + [phone] Pcp, Unknown Primary Care Provider Unavailabl e Kassy Cool MD Primary Care Provider + [phone] Encounter Details Date Type Department Care Team (Late st Contact Info) Description 06/12/2021 Procedure Pass [facility], Ct Scan - [address] [address] Social History Tobacco Use Types Packs/Day Years [...] 6:44 PM EDT Yuko Corbin RN * [place] Suicide Severity Rating Scale (Screener/Recent Self-Report) Question [...] Raiza Mclain RN Note: 06/19/23: Resides @ [address] [place] [address] ([employer]) Dr. Cool's cell [phone] if needed Previous inpatient detox facilities: Razo Unit at [facility] is his preferred detox Formerly homeless Engage in recovery supports General No Carmen Peralta, BRICE Note: Dr. Cool states pt was in a temporary custodial run by [facility] in [place] for about 1 month Oct 2020 recently but he eloped from there. It is now closed. She requests that we add to his care plan to direct him to go directly to the custodial clinic to see her upon ED if he arrives here on a Friday or , call her either way if he is in the ED [phone]. Also ask pt where he is sleeping [...] documented as of this encounter Care Teams Aircraft Painter Relationship Specialty Start Date End Date Kassy Cool MD [address] [place] [address] PCP - General Family Medicine 05/01/21 01/26/22 Pcp, Unknown PCP - General 01/27/22 03/04/22 Kassy Cool MD [address] [place] [address] [email or web address] PCP - General Family Medicine 04/16/23 documented as of this encounter Additional Source Comments The information contained in this document represents components of the legal health record. It is not the complete legal health record.[facility]
--- OUTSIDE RECORDS SUMMARY | 2025-06-16 00:09 | XMS_ITS | Encounter Summary ---
Author Organization [facility] Address [address] [place] [address] [place] [address] Phone Care Team Providers Care Health Care Facility Administrator Name Role Phone Kassy Cool MD Primary Care Provider + [phone] Pcp, Unknown Primary Care Provider Unavailabl e Kassy Cool MD Primary Care Provider + [phone] Encounter Details Date Type Department Care Team (Late st Contact Info) Description 06/06/2021 Procedure Pass [facility], Ct Scan - [address] [address] Social History Tobacco Use Types Packs/Day Years [...] 6:00 AM EDT Vikash Patterson RN * [place] Suicide Severity Rating Scale (Screener/Recent Self-Report) Question [...] Raiza Mclain RN Note: 06/19/23: Resides @ [address] [place] [address] ([employer]) Dr. Cool's cell [phone] if needed Previous inpatient detox facilities: Razo Unit at [facility] is his preferred detox Formerly homeless Engage in recovery supports General No Carmen Peralta, BRICE Note: Dr. Cool states pt was in a temporary correction run by [facility] in [place] for about 1 month Oct 2020 recently but he eloped from there. It is now closed. She requests that we add to his care plan to direct him to go directly to the correction clinic to see her upon ED if he arrives here on a Friday or , call her either way if he is in the ED [phone]. Also ask pt where he is sleeping [...] documented as of this encounter Care Teams Health Care Facility Administrator Relationship Specialty Start Date End Date Kassy Cool MD [address] [place] [address] [email or web address] PCP - General Family Medicine 05/01/21 01/26/22 Pcp, Unknown PCP - General 01/27/22 03/04/22 Kassy Cool MD [address] [place] [address] [email or web address] PCP - General Family Medicine 04/16/23 documented as of this encounter Additional Source Comments The information contained in this document represents components of the legal health record. It is not the complete legal health record.[facility]
--- OUTSIDE RECORDS SUMMARY | 2025-06-16 00:09 | XMS_ITS | Encounter Summary ---
Author Organization [facility] Address [address] [facility] [address] [place] [address] Phone Care Team Providers Care Cement Kiln Operator Name Role Phone Kassy Cool MD Primary Care Provider + [phone] Encounter Details Date Type Department Care Team (Late st Contact Info) Description 11/29/2024 Procedure Pass [facility], [facility] Scan - [facility] [address] [place] [address] Social History Tobacco Use Types Packs/Day Years [...] 11/29/2024 7:34 PM Jenn Hernandez RN * [place] Suicide Severity Rating Scale (Screener/Recent Self-Report) Question [...] Raiza Mclain RN Note: 06/19/23: Resides @ [address] [place] [address] ([employer]) Dr. Cool's cell [phone] if needed Previous inpatient detox facilities: Razo Unit at [facility] is his preferred detox Formerly homeless Engage in recovery supports General No Caremn Peralta RN Note: Dr. Cool states pt was in a temporary long-term run by [facility] in [place] for about 1 month Oct 2020 recently but he eloped from there. It is now closed. She requests that we add to his care plan to direct him to go directly to the long-term clinic to see her upon ED if he arrives here on a Friday or , call her either way if he is in the ED [phone]. Also ask pt where he is sleeping currently so she can track him down. documented as of this encounter Visit Diagnoses Not on filedocumented in this encounter Additional Health Concerns Infection Onset Date Last Indicated Resolved Time CoV-Risk 04/26/2025 04/26/2025 05/07/2025 1:21 AM EDT documented as of this encounter Care Teams Cement Kiln Operator Relationship Specialty Start Date End Date Kassy Cool MD [address] [place] [address] [email or web address] PCP - General Family Medicine 04/16/23 documented as of this encounter Additional Source Comments The information contained in this document represents components of the legal health record. It is not the complete legal health record.[facility]
--- OUTSIDE RECORDS SUMMARY | 2025-06-16 00:09 | XMS_ITS | Encounter Summary ---
Author Organization [employer] Address [address] [facility] 7 [place] [address] Care Team Providers Care Ebay Reseller Name Role Phone DarrionJackie Unavailable Unavailable Kassy Cool MD Primary Care Provider Mel Erazo Unavailable Unavailable Constance Lozada Unavailable Encounter Details Date Type Department Care Team (Late st Contact Info) Description 10/31/2022 Orders Only [facility] MEDICAL [address] [place] [address] Provider, MD Brandon Social History Tobacco Use [...] Blood Venous blood specimen / Unknown Result [facility] Provider LAB BLOOD ORDERABLES Fiorella l Result documented in this encounter Visit Diagnoses Not on filedocumented in this encounter Care Teams Ebay Reseller Relationship Specialty Start Date End Date Kassy Cool MD [address] [place] [address] PCP - General Family Medicine 10/09/22 Jackie Maier Health Navigator Case Management 10/09/22 Mel Erazo Community Health Worker Case Management 10/30/22 Constance Lozada 02/24/25 04/29/25 documented as of this encounter
--- OUTSIDE RECORDS SUMMARY | 2025-06-16 00:09 | XMS_ITS | Encounter Summary ---
Author Organization [facility] Address [address] [place] [address] [place] [address] Phone Care Team Providers Care Joy Operator Name Role Phone Kiya Valenzuela NP Primary Care Provider Kassy Cool MD Primary Care Provider Pcp, Unknown Primary Care Provider Unavailabl e Kassy Cool MD Primary Care Provider Encounter Details Date Type Department Care Team (Late st Contact Info) Description 04/27/2021 Procedure Pass [facility], Ct Scan - [address] [address] Social History Tobacco Use Types Packs/Day Years [...] Mclain, RN Note: 06/19/23: Resides @ [address] [place] [address] ([employer]) Dr. Cool's cell [phone] if needed Previous inpatient detox facilities: Razo Unit at [facility] is his preferred detox Formerly homeless Engage in recovery supports General Carmen Juan RN Note: Dr. Cool states pt was in a temporary nursing home run by [facility] in [place] for about 1 month Oct 2020 recently but he eloped from there. It is now closed. She requests that we add to his care plan to direct him to go directly to the nursing home clinic to see her upon ED if he arrives here on a Friday or , call her either way if he is in the ED [phone]. Also ask pt where he is sleeping [...] documented as of this encounter Care Teams Joy Operator Relationship Specialty Start Date End Date Kiya Valenzuela NP [address] [place] [address] [email or web address] PCP - General Family Medicine 10/08/20 04/30/21 Kassy Cool MD [address] [place] [address] PCP - General Family Medicine 05/01/21 01/26/22 Pcp, Unknown PCP - General 01/27/22 03/04/22 Kassy Cool MD [address] [place] [address] [email or web address] PCP - General Family Medicine 04/16/23 documented as of this encounter Additional Source Comments The information contained in this document represents components of the legal health record. It is not the complete legal health record.[facility]
--- OUTSIDE RECORDS SUMMARY | 2025-06-16 00:09 | XMS_ITS | Encounter Summary ---
Author Organization [facility] Address [address] [place] [address] [place] [address] Phone Care Team Providers Care Photovoltaic Installer Name Role Phone Kassy Cool MD Primary Care Provider + [phone] Pcp, Unknown Primary Care Provider Unavailabl e Kassy Cool MD Primary Care Provider + [phone] Encounter Details Date Type Department Care Team (Late st Contact Info) Description 05/30/2021 Procedure Pass [facility], Ct Scan - [address] [address] Social History Tobacco Use Types Packs/Day Years [...] 7:47 PM EDT Lukas Lipscomb, BRICE * [place] Suicide Severity Rating Scale (Screener/Recent Self-Report) Question [...] Mclain, RN Note: 06/19/23: Resides @ [address] [place] [address] ([employer]) Dr. Cool's cell [phone] if needed Previous inpatient detox facilities: R[facility] Unit at [facility] is his preferred detox Formerly homeless Engage in recovery supports General No Carmen Peralta, BRICE Note: Dr. Cool states pt was in a temporary long term run by [facility] in [place] for about 1 month Oct 2020 recently but he eloped from there. It is now closed. She requests that we add to his care plan to direct him to go directly to the long term clinic to see her upon ED if he arrives here on a Friday or , call her either way if he is in the ED [phone]. Also ask pt where he is sleeping [...] documented as of this encounter Care Teams Photovoltaic Installer Relationship Specialty Start Date End Date Kassy Cool MD [address] [place] [address] [email or web address] PCP - General Family Medicine 05/01/21 01/26/22 Pcp, Unknown PCP - General 01/27/22 03/04/22 Kassy Cool MD [address] [place] [address] [email or web address] PCP - General Family Medicine 04/16/23 documented as of this encounter Additional Source Comments The information contained in this document represents components of the legal health record. It is not the complete legal health record.[facility]
--- OUTSIDE RECORDS SUMMARY | 2025-06-16 00:09 | XMS_ITS | Encounter Summary ---
Author Organization [facility] Address [address] [place] [address] [place] [address] Phone Care Team Providers Care Toolroom Helper Name Role Phone Kassy Cool MD Primary Care Provider + [phone] Pcp, Unknown Primary Care Provider Unavailabl e Kassy Cool MD Primary Care Provider + [phone] Encounter Details Date Type Department Care Team (Late st Contact Info) Description 05/01/2021 Procedure Pass [facility], Ct Scan - [address] [address] Social History Tobacco Use Types Packs/Day Years [...] 3:06 PM EDT Ross Gregory RN * [place] Suicide Severity Rating Scale (Screener/Recent Self-Report) Question [...] Raiza Mclain RN Note: 06/19/23: Resides @ [address] [place] [address] ([employer]) Dr. Cool's cell [phone] if needed Previous inpatient detox facilities: [facility] at [facility] is his preferred detox Formerly homeless Engage in recovery supports General No Carmen Peralta, BRICE Note: Dr. Cool states pt was in a temporary fdc run by [facility] in [place] for about 1 month Oct 2020 recently but he eloped from there. It is now closed. She requests that we add to his care plan to direct him to go directly to the fdc clinic to see her upon ED if he arrives here on a Friday or , call her either way if he is in the ED [phone]. Also ask pt where he is sleeping [...] documented as of this encounter Care Teams Toolroom Helper Relationship Specialty Start Date End Date Kassy Cool MD [address] [place] [address] [email or web address] PCP - General Family Medicine 05/01/21 01/26/22 Pcp, Unknown PCP - General 01/27/22 03/04/22 Kassy Cool MD 70 [place] [address] PCP - General Family Medicine 04/16/23 documented as of this encounter Additional Source Comments The information contained in this document represents components of the legal health record. It is not the complete legal health record.[facility]
--- OUTSIDE RECORDS SUMMARY | 2025-06-16 00:09 | XMS_ITS | Encounter Summary ---
Author Organization [facility] Address [address] [facility] [address] [place] [address] Phone Care Team Providers Care Investigator Narcotics Name Role Phone Kassy Cool MD Primary Care Provider + [phone] Encounter Details Date Type Department Care Team (Late st Contact Info) Description 04/11/2025 Procedure Pass [facility], Ct Scan - [facility] [address] [place] [address] Social History Tobacco Use Types Packs/Day Years [...] 4:38 PM EDT Charis Hubbard, BRICE * [place] Suicide Severity Rating Scale (Screener/Recent Self-Report) Question [...] Raiza Mclain, RN Note: 06/19/23: Resides @ [address] [place] [address] ([employer]) Dr. Cool's cell [phone] if needed Previous inpatient detox facilities: Razo Unit at [facility] is his preferred detox Formerly homeless Engage in recovery supports General No Carmen Peralta, BRICE Note: Dr. Cool states pt was in a temporary care home run by [facility] in [place] for about 1 month Oct 2020 recently but he eloped from there. It is now closed. She requests that we add to his care plan to direct him to go directly to the care home clinic to see her upon ED if he arrives here on a Friday or , call her either way if he is in the ED [phone]. Also ask pt where he is sleeping currently so she can track him down. documented as of this encounter Visit Diagnoses Not on filedocumented in this encounter Additional Health Concerns Infection Onset Date Last Indicated Resolved Time CoV-Risk 04/26/2025 04/26/2025 05/07/2025 1:21 AM EDT documented as of this encounter Care Teams Investigator Narcotics Relationship Specialty Start Date End Date Kassy Cool MD [address] [place] [address] [email or web address] PCP - General Family Medicine 04/16/23 documented as of this encounter Additional Source Comments The information contained in this document represents components of the legal health record. It is not the complete legal health record.[facility]
--- OUTSIDE RECORDS SUMMARY | 2025-06-16 00:09 | XMS_ITS | Encounter Summary ---
Author Organization [facility] Address [address] [place] [address] [place] [address] Phone Care Team Providers Care Vinyl Top Installer Name Role Phone Kassy Cool MD Primary Care Provider + [phone] Pcp, Unknown Primary Care Provider Unavailabl e Kassy Cool MD Primary Care Provider + [phone] Encounter Details Date Type Department Care Team (Late st Contact Info) Description 06/12/2021 Procedure Pass [facility], Ct Scan - [address] [address] Social History Tobacco Use Types Packs/Day Years [...] No Risk Indicated 06/12/2021 6:44 PM EDT Ykuo Corbin RN * [place] Suicide Severity Rating Scale (Screener/Recent Self-Report) Question [...] Mclain RN Note: 06/19/23: Resides @ [address] [place] [address] ([employer]) Dr. Cool's cell [phone] if needed Previous inpatient detox facilities: Razo Unit at [facility] is his preferred detox Formerly homeless Engage in recovery supports General No Carmen Peralta, BRICE Note: Dr. Cool states pt was in a temporary [place] run by [facility] in [place] for about 1 month Oct 2020 recently but he eloped from there. It is now closed. She requests that we add to his care plan to direct him to go directly to the [place] [facility] [place] to see her upon ED if he arrives here on a Friday or , call her either way if he is in the ED [phone]. Also ask pt where he is sleeping [...] documented as of this encounter Care Teams Vinyl Top Installer Relationship Specialty Start Date End Date Kassy Cool MD [address] [place] [address] [email or web address] PCP - General Family Medicine 05/01/21 01/26/22 Pcp, Unknown PCP - General 01/27/22 03/04/22 Kassy Cool MD [address] [place] [address] [email or web address] PCP - General Family Medicine 04/16/23 documented as of this encounter Additional Source Comments The information contained in this document represents components of the legal health record. It is not the complete legal health record.[facility]
--- OUTSIDE RECORDS SUMMARY | 2025-06-16 00:09 | XMS_ITS | Encounter Summary ---
Author Organization [employer] Address [address] [facility] 7 [place] [address] Care Team Providers Care Java Solutions Architect Name Role Phone DarrionJackie harper Unavailable Unavailable Kassy Cool MD Primary Care Provider [phone] Mel Erazo Unavailable Unavailable Constance Lozada Unavailable Encounter Details Date Type Department Care Team (Late st Contact Info) Description 01/04/2024 Orders Only [facility] [address] [place] [address] Kassy Cool MD [address] [place] [address] Social History Tobacco Use Types Packs/Day Years [...] on filedocumented in this encounter Care Teams Java Solutions Architect Relationship Specialty Start Date End Date Kassy Cool MD [address] [place] [address] PCP - General Family Medicine 10/09/22 Jackie Maier Health Navigator Case Management 10/09/22 Mel Erazo Community Health Worker Case Management 10/30/22 Constance Lozada 02/24/25 04/29/25 documented as of this encounter
--- OUTSIDE RECORDS SUMMARY | 2025-06-16 00:09 | XMS_ITS | Encounter Summary ---
Author Organization [facility] Address [address] [facility] [address] [place] [address] Phone Care Team Providers Care Financial Secretary Name Role Phone Kassy Cool MD Primary Care Provider + [phone] Encounter Details Date Type Department Care Team (Late st Contact Info) Description 03/03/2025 Procedure Pass [facility], Ct Scan - [facility] [address] [place] [address] Social History Tobacco Use Types Packs/Day Years [...] 2:33 PM EDT Lamont Parkinson RN * [place] Suicide Severity Rating Scale (Screener/Recent Self-Report) Question [...] Mclain, RN Note: 06/19/23: Resides @ [address] [place] [address] ([employer]) Dr. Cool's cell [phone] if needed Previous inpatient detox facilities: Razo Unit at [facility] is his preferred detox Formerly homeless [facility] General No Carmen Peralta, RN Note: Dr. Cool states pt was in a temporary mcfp run by [facility] in [place] for about 1 month Oct 2020 recently but he eloped from there. It is now closed. She requests that we add to his care plan to direct him to go directly to the mcfp clinic to see her upon ED if he arrives here on a Friday or , call her either way if he is in the ED [phone]. Also ask pt where he is sleeping currently so she can track him down. documented as of this encounter Visit Diagnoses Not on filedocumented in this encounter Additional Health Concerns Infection Onset Date Last Indicated Resolved Time CoV-Risk 04/26/2025 04/26/2025 05/07/2025 1:21 AM EDT documented as of this encounter Care Teams Financial Secretary Relationship Specialty Start Date End Date Kassy Cool MD [address] [place] [address] [email or web address] PCP - General Family Medicine 04/16/23 documented as of this encounter Additional Source Comments The information contained in this document represents components of the legal health record. It is not the complete legal health record.[facility]
--- OUTSIDE RECORDS SUMMARY | 2025-06-16 00:09 | XMS_ITS | Encounter Summary ---
Author Organization [facility] Address [address] [place] [address] Care Team Providers Care Conveyor Weigher Operator Name Role Phone Jackie Maier Unavailable Unavailable Kassy Cool MD Primary Care Provider [phone] Mel Erazo Unavailable Unavailable Constance Lozada Unavailable Encounter Details Date Type Department Care Team (Late st Contact Info) Description 04/06/2024 Orders Only [facility] MEDICAL [address] [place] [address] Provider, MD Brandon Social History Tobacco Use [...] on filedocumented in this encounter Care Teams Conveyor Weigher Operator Relationship Specialty Start Date End Date Kassy Cool MD 70 [place] [address] PCP - General Family Medicine 10/09/22 Jackie Maier Health Navigator Case Management 10/09/22 Mel Erazo Community Health Worker Case Management 10/30/22 Constance Lozada 02/24/25 04/29/25 documented as of this encounter
--- OUTSIDE RECORDS SUMMARY | 2025-06-16 00:09 | XMS_ITS | Encounter Summary ---
Author Organization [facility] Address [address] [facility] [address] [place] [address] Phone Care Team Providers Care Assistant Strength Coach Name Role Phone Kassy Cool MD Primary Care Provider + [phone] Encounter Details Date Type Department Care Team (Late st Contact Info) Description 04/11/2025 Procedure Pass [facility], Ct Scan - [facility] [address] [place] [address] Social History Tobacco Use Types Packs/Day Years [...] 4:38 PM EDT Charis Hubbard, BRICE * [place] Suicide Severity Rating Scale (Screener/Recent Self-Report) Question [...] Mclain, RN Note: 06/19/23: Resides @ [address] [place] [address] ([employer]) Dr. Cool's cell [phone] if needed Previous inpatient detox facilities: Razo Unit at [facility] is his preferred detox Formerly homeless [facility] General No Carmen Peralta, BRICE Note: Dr. Cool states pt was in a temporary intermediate run by [facility] in [place] for about 1 month Oct 2020 recently but he eloped from there. It is now closed. She requests that we add to his care plan to direct him to go directly to the intermediate clinic to see her upon ED if he arrives here on a Friday or , call her either way if he is in the ED [phone]. Also ask pt where he is sleeping currently so she can track him down. documented as of this encounter Visit Diagnoses Not on filedocumented in this encounter Additional Health Concerns Infection Onset Date Last Indicated Resolved Time CoV-Risk 04/26/2025 04/26/2025 05/07/2025 1:21 AM EDT documented as of this encounter Care Teams Assistant Strength Coach Relationship Specialty Start Date End Date Kassy Cool MD [address] [place] [address] [email or web address] PCP - General Family Medicine 04/16/23 documented as of this encounter Additional Source Comments The information contained in this document represents components of the legal health record. It is not the complete legal health record.[facility]
--- OUTSIDE RECORDS SUMMARY | 2025-06-16 00:09 | XMS_ITS | Encounter Summary ---
Author Organization [facility] [employer] Address [address] [facility] 7 [place] [address] Care Team Providers Care Chief Scientist Name Role Phone Jackie Maier Unavailable Unavailable Kassy Cool MD Primary Care Provider [phone] Mel Erazo Unavailable Unavailable Constance Lozada Unavailable Encounter Details Date Type Department Care Team (Late st Contact Info) Description 10/07/2023 Orders Only [facility] Information Management [address] [place] [address] Kassy Cool MD [address] [place] [address] Social History Tobacco Use Types Packs/Day Years [...] on filedocumented in this encounter Care Teams Chief Scientist Relationship Specialty Start Date End Date Kassy Cool MD [address] [place] [address] PCP - General Family Medicine 10/09/22 Jackie Maier Health Navigator Case Management 10/09/22 Mel Erazo Community Health Worker Case Management 10/30/22 Constance Lozada 02/24/25 04/29/25 documented as of this encounter
--- OUTSIDE RECORDS SUMMARY | 2025-06-16 00:09 | XMS_ITS | Encounter Summary ---
Author Organization [facility] Address [address] [place] [address] [place] [address] Phone Care Team Providers Care Smasher Name Role Phone Kassy Cool MD Primary Care Provider + [phone] Pcp, Unknown Primary Care Provider Unavailabl e Kassy Cool MD Primary Care Provider + [phone] Encounter Details Date Type Department Care Team (Late st Contact Info) Description 06/28/2021 Procedure Pass [facility], Ct Scan - [address] [address] Social History Tobacco Use Types Packs/Day Years [...] 8:37 PM EDT Lukas Lipscomb, BRICE * [place] Suicide Severity Rating Scale (Screener/Recent Self-Report) Question Answer Date of Assessment Author 1. Wish to be (Past 1 Month) No 021 8:37 PM EDT Lukas Lipscomb, RN 2. Non-Specific Active Suici nacho Thoughts (Past 1 Month) No 07/01/2021 8:37 [...] Mclain, RN Note: 06/19/23: Resides @ [address] [place] [address] ([employer]) Dr. Cool's cell [phone] if needed Previous inpatient detox facilities: Razo Unit at [facility] is his preferred detox Formerly homeless [employer] [facility] General No Carmen Peralta, BRICE Note: Dr. Cool states pt was in a temporary long-term run by [facility] in [place] for about 1 month Oct 2020 recently but he eloped from there. It is now closed. She requests that we add to his care plan to direct him to go directly to the long-term clinic to see her upon ED if he arrives here on a Friday or , call her either way if he is in the ED [phone]. Also ask pt where he is sleeping [...] documented as of this encounter Care Teams Smasher Relationship Specialty Start Date End Date Kassy Cool MD [address] [place] [address] PCP - General Family Medicine 05/01/21 01/26/22 Pcp, Unknown PCP - General 01/27/22 03/04/22 Kassy Cool MD [address] [place] [address] [email or web address] PCP - General Family Medicine 04/16/23 documented as of this encounter Additional Source Comments The information contained in this document represents components of the legal health record. It is not the complete legal health record.[facility]
--- OUTSIDE RECORDS SUMMARY | 2025-06-16 00:09 | XMS_ITS | Encounter Summary ---
Author Organization [facility] Address [address] [facility] [address] [place] [address] Phone Care Team Providers Care Switchman Name Role Phone Kassy Cool MD Primary Care Provider + [phone] Encounter Details Date Type Department Care Team (Late st Contact Info) Description 02/26/2025 Procedure Pass [facility], Ct Scan - [facility] [address] [place] [address] Social History Tobacco Use Types Packs/Day Years [...] AM EDT Tracy Enriquez ma RN * [place] Suicide Severity Rating Scale (Screener/Recent Self-Report) Question [...] Acute Care Plan Acute Care Plan No Raiaz Mclain, RN Note: 06/19/23: Resides @ [address] [place] [address] ([employer]) Dr. Cool's cell [phone] if needed Previous inpatient detox facilities: Razo Unit at [facility] is his preferred detox Formerly homeless [employer] [facility] General No Carmen Peralta, BRICE Note: Dr. Cool states pt was in a temporary jail run by [facility] in [place] for about 1 month Oct 2020 recently but he eloped from there. It is now closed. She requests that we add to his care plan to direct him to go directly to the jail clinic to see her upon ED if he arrives here on a Friday or , call her either way if he is in the ED [phone]. Also ask pt where he is sleeping currently so she can track him down. documented as of this encounter Visit Diagnoses Not on filedocumented in this encounter Additional Health Concerns Infection Onset Date Last Indicated Resolved Time CoV-Risk 04/26/2025 04/26/2025 05/07/2025 1:21 AM EDT documented as of this encounter Care Teams Switchman Relationship Specialty Start Date End Date Kassy Cool MD [address] [place] [address] [email or web address] PCP - General Family Medicine 04/16/23 documented as of this encounter Additional Source Comments The information contained in this document represents components of the legal health record. It is not the complete legal health record.[facility]
--- OUTSIDE RECORDS SUMMARY | 2025-06-16 00:09 | XMS_ITS | Encounter Summary ---
Author Organization [facility] Address [address] [address] Care Team Providers Care Photocopying Machine Operator Name Role Phone Jackie Maier Unavailable Unavailable Kassy Cool MD Primary Care Provider [phone] Mel Erazo Unavailable Unavailable Constance Lozada Unavailable Encounter Details Date Type Department Care Team (Late st Contact Info) Description 01/06/2024 Telephone [facility] Information Management [address] [place] [address] Kassy Cool MD [address] [place] [address] Social History Tobacco Use Types Packs/Day Years [...] on filedocumented in this encounter Care Teams Photocopying Machine Operator Relationship Specialty Start Date End Date Kassy Cool MD [address] [place] [address] PCP - General Family Medicine 10/09/22 Jackie Maier Health Navigator Case Management 10/09/22 Mel Erazo Community Health Worker Case Management 10/30/22 Constance Lozada 02/24/25 04/29/25 documented as of this encounter
--- OUTSIDE RECORDS SUMMARY | 2025-06-16 00:09 | XMS_ITS | Encounter Summary ---
Author Organization [facility] Address [address] [place] [address] [place] [address] Phone Care Team Providers Care Decision Analyst Name Role Phone Kassy Cool MD Primary Care Provider + [phone] Pcp, Unknown Primary Care Provider Unavailabl e Kassy Cool MD Primary Care Provider + [phone] Encounter Details Date Type Department Care Team (Late st Contact Info) Description 05/30/2021 Procedure Pass [facility], Ct Scan - [address] [address] Social History Tobacco Use Types Packs/Day Years [...] 7:47 PM EDT Lukas Lipscomb, BRICE * [place] Suicide Severity Rating Scale (Screener/Recent Self-Report) Question [...] Raiza Mclain, RN Note: 06/19/23: Resides @ [address] [place] [address] ([employer]) Dr. Cool's cell [phone] if needed Previous inpatient detox facilities: Razo Unit at [facility] is his preferred detox Formerly homeless [employer] [facility] [employer] [facility] General No Carmen Peralta, BRICE Note: Dr. Cool states pt was in a temporary mcfp run by [facility] in [place] for about 1 month Oct 2020 recently but he eloped from there. It is now closed. She requests that we add to his care plan to direct him to go directly to the mcfp clinic to see her upon ED if he arrives here on a Friday or , call her either way if he is in the ED [phone]. Also ask pt where he is sleeping [...] documented as of this encounter Care Teams Decision Analyst Relationship Specialty Start Date End Date Kassy Cool MD [address] [place] [address] PCP - General Family Medicine 05/01/21 01/26/22 Pcp, Unknown PCP - General 01/27/22 03/04/22 Kassy Cool MD [address] [place] [address] [email or web address] PCP - General Family Medicine 04/16/23 documented as of this encounter Additional Source Comments The information contained in this document represents components of the legal health record. It is not the complete legal health record.[facility]
--- OUTSIDE RECORDS SUMMARY | 2025-06-16 00:09 | XMS_ITS | Encounter Summary ---
Author Organization [employer] Address 75 [facility] 7 [place] [address] Care Team Providers Care Court Reporter Name Role Phone DarrionJackie harper Unavailable Unavailable Kassy Cool MD Primary Care Provider [phone] Mel Erazo Unavailable Unavailable Constance Lozada Unavailable Encounter Details Date Type Department Care Team (Late st Contact Info) Description 01/02/2024 Orders Only [facility] Information Management [address] [place] [address] Kassy Cool MD [address] [place] [address] Social History Tobacco Use Types Packs/Day Years [...] on filedocumented in this encounter Care Teams Court Reporter Relationship Specialty Start Date End Date Kassy Cool MD [address] [place] [address] PCP - General Family Medicine 10/09/22 Jackie Maier Health Navigator Case Management 10/09/22 Mel Erazo Community Health Worker Case Management 10/30/22 Constance Lozada 02/24/25 04/29/25 documented as of this encounter
--- OUTSIDE RECORDS SUMMARY | 2025-06-16 00:09 | XMS_ITS | Encounter Summary ---
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
--- OUTSIDE RECORDS SUMMARY | 2025-06-16 00:09 | XMS_ITS | Encounter Summary ---
Author Organization [employer] Address 75 [facility] 7 [place] [address] Care Team Providers Care Typewriter Operator Automatic Name Role Phone DarrionJackie harper Unavailable Unavailable Kassy Cool MD Primary Care Provider [phone] Mel Erazo Unavailable Unavailable Constance Lozada Unavailable Encounter Details Date Type Department Care Team (Late st Contact Info) Description 07/01/2024 Orders Only [facility] Information Management [address] [place] [address] Kassy Cool MD [address] [place] [address] Social History Tobacco Use Types Packs/Day Years [...] on filedocumented in this encounter Care Teams Typewriter Operator Automatic Relationship Specialty Start Date End Date Kassy Cool MD [address] [place] [address] PCP - General Family Medicine 10/09/22 Jackie Maier Health Navigator Case Management 10/09/22 Mel Erazo Community Health Worker Case Management 10/30/22 Constance Lozada 02/24/25 04/29/25 documented as of this encounter
--- OUTSIDE RECORDS SUMMARY | 2025-06-16 00:09 | XMS_ITS | Encounter Summary ---
Author Organization [employer] Address 75 [facility] 7 [place] [address] Care Team Providers Care Generator Mechanic Name Role Phone Darrion Jackie Unavailable Unavailable Kassy Cool MD Primary Care Provider [phone] Mel Erazo Unavailable Unavailable Constance Lozada Unavailable Encounter Details Date Type Department Care Team (Late st Contact Info) Description 10/23/[address] [facility] MEDICAL [address] [place] [address] Provider, MD Brandon Social History Tobacco Use [...] by clean catch procedure / Unknown Result [facility] Provider MD LAB URINE ORDERABLES Fiorella l Result * Magnesium (10/22/2022) Blood Venous blood specimen / Unknown Result [facility] Provider MD LAB BLOOD ORDERABLES Fiorella l Result * Hepatic Function Panel (10/22/2022) Blood Venous blood specimen / Unknown Result [facility] Provider MD LAB BLOOD ORDERABLES Fiorella l Result * Lipase (10/22/2022) Blood Venous blood specimen / Unknown Result [facility] MD LAB BLOOD ORDERABLES Fiorella l Result * Basic Metabolic Panel (10/22/2022) Blood Venous blood specimen / Unknown Result [facility] MD LAB BLOOD ORDERABLES Fiorella l Result * CBC and differential (10/22/2022) Blood Venous blood specimen / Unknown Result [facility] MD LAB BLOOD ORDERABLES Fiorella l Result * Alcohol, Ethyl (10/22/2022) Blood Venous blood specimen / Unknown Result [facility] MD LAB BLOOD ORDERABLES Fiorella l Result documented in this encounter Visit Diagnoses Not on filedocumented in this encounter Care Teams Generator Mechanic Relationship Specialty Start Date End Date Kassy Cool MD [address] [place] [address] PCP - General Family Medicine 10/09/22 Jackie Maier Health Navigator Case Management 10/09/22 Mel Erazo Community Health Worker Case Management 10/30/22 Constance Lozada 02/24/25 04/29/25 documented as of this encounter
--- OUTSIDE RECORDS SUMMARY | 2025-06-16 00:09 | XMS_ITS | Encounter Summary ---
Author Organization [employer] Address 75 [facility] 7 [place] [address] Care Team Providers Care Negative Cleaner Name Role Phone Darrion Jackie Unavailable Unavailable Kassy Cool MD Primary Care Provider [phone] Mel Erazo Unavailable Unavailable Constance Lozada Unavailable Encounter Details Date Type Department Care Team (Late st Contact Info) Description 10/21/2022 Orders Only [facility] MEDICAL [address] [place] [address] Provider, MD Brandon Social History Tobacco Use [...] by clean catch procedure / Unknown Result [facility] Provider MD LAB URINE ORDERABLES Fiorella l Result * Hepatic Function Panel (10/11/2022) Blood Venous blood specimen / Unknown Result [facility] Provider LAB BLOOD ORDERABLES Fiorella l Result * Lipase (10/11/2022) Blood Venous blood specimen / Unknown Result [facility] Provider LAB BLOOD ORDERABLES Fiorella l Result * Basic Metabolic Panel (10/11/2022) Blood Venous blood specimen / Unknown Result [facility] LAB BLOOD ORDERABLES Fiorella l Result * Alcohol, Ethyl (10/11/2022) Blood Venous blood specimen / Unknown Result [facility] Provider LAB BLOOD ORDERABLES Fiorella l Result * CBC and differential (10/11/2022) Blood Venous blood specimen / Unknown Result [facility] MD LAB BLOOD ORDERABLES Fiorella l Result * Toxicology screen, urine (10/11/2022) Urine Urine specimen obtained by clean catch procedure / Unknown Result [facility] LAB URINE ORDERABLES Fiorella l Result documented in this encounter Visit Diagnoses Not on filedocumented in this encounter Care Teams Negative Cleaner Relationship Specialty Start Date End Date Kassy Cool MD [address] [place] [address] PCP - General Family Medicine 10/09/22 Jackie Maier Health Navigator Case Management 10/09/22 Mel Erazo Community Health Worker Case Management 10/30/22 Constance Lozada 02/24/25 04/29/25 documented as of this encounter
[2025-06-16 00:14] LABS: Imm Gran Abs Auto 0.01 X10*3/uL (0.00-0.03); Imm Gran Pct Auto 0.2 % (0.0-0.4); MANUAL DIFF FLAG SCAN; Mean Corpuscular Hemoglobin 32.3 pg (27.0-33.0); NRBC Abs Auto 0.000 X10*3/uL (0.0-0.012); NRBC Pct Auto 0.0 /100WBC (0.0-0.2); PLT CLUMP 1; SCAN SMEAR FLAG 1
[2025-06-16 00:15] LABS: Hematocrit 37.9 % (42.0-52.0); Hemoglobin 12.9 g/dl (14.0-18.0); Lymphocytes Absolute Auto 2.5 X10*3/uL (1.2-4.9); Mean Corpuscular HGB Conc 34.0 g/dl (31.0-36.0); Mean Corpuscular Volume 95.0 fL (80.0-98.0); Red Blood Count 3.99 X10*6/uL (4.60-5.80)
[2025-06-16 00:18] LABS: INTERNATIONAL NORM RATIO 0.9 (0.9-1.1); Prothrombin Time 10.2 SEC (10.9-12.4)
[2025-06-16 00:31] LABS: Alanine Aminotransferase 10 U/L (0-40); Albumin Level 4.1 g/dL (3.5-5.0); Alkaline Phosphatase 63 U/L (39-117); Anion Gap 13 (12-20); Aspartate Amino Transferase 25 U/L (5-37); Blood Urea Nitrogen 7 mg/dL (9-16); Calcium 8.6 mg/dL (8.4-10.2); Carbon Dioxide 24 mmol/L (22-29); Chloride 104 mmol/L (96-108); Creatinine Clr Calc Pharmacy 98.9; Estimated Glomerular Filt Rate > 60; Potassium 4.0 mmol/L (3.3-5.1); Sodium 137 mmol/L (135-145); Total Protein 6.4 g/dL (6.5-8.0)
[2025-06-16 00:54] LABS: Platelet Count 138 X10*3/uL (160-400); White Blood Count 6.5 X10*3/uL (4.8-10.8)
[2025-06-16 01:46] VITALS: BP 123/97; PULSE 80
[2025-06-16 05:30] VITALS: BP 118/84; PULSE 76; RESP 18; TEMP 36.4; O2SAT 94
[2025-06-16 07:10] VITALS: BP 118/84; PULSE 76; RESP 18; TEMP 36.4; O2SAT 94
== END 2025-06-16 07:11 | disposition home or self-care (01) ==
PROVIDERS: Emergency Provider Emergency Medicine
DX: F10.129 Alcohol abuse with intoxication, unspecified (principal); Y90.6 Blood alcohol level of 120-199 mg/100 ml; Z51.81 Encounter for therapeutic drug level monitoring; Z79.899 Other long term (current) drug therapy; Z59.00 Homelessness unspecified
CPT/HCPCS: 36415; 80048; 80076; 80307; 85025; 85610; 99283; 99284